=== PATIENT | female | born 1960 | race Asian ===

== ENCOUNTER 2020-08-22 13:05 | Outpatient (REF) | payer OTHER, SELFPAY ==
[2020-08-23 11:04] LABS: CT PCR NOT DETECTED (Not Detect.)
[2020-08-23 11:05] LABS: NG PCR NOT DETECTED (Not Detect.)
[2020-08-23 11:25] LABS: BV Int Neg Control Negative (Negative); BV Int Pos Control Positive (Positive)
[2020-08-23 14:21] LABS: Appearance Urine HAZY; Color Urine YELLOW; Glucose Urine UA NEG (NEG); Leukocyte Esterase Urine NEG (NEG); Nitrite Urine NEG (NEG); Specific Gravity - Urine 1.025 (1.005-1.025); Urine Blood 1+ (NEG); Urine Ketones NEG (NEG); Urine Protein NEG (NEG-TRACE)
[2020-08-23 15:00] LABS: Squamous Epithelial Cell Urine 1+ /LPF; WBC Urine 0-2 /HPF (0-4)
[2020-08-23 15:01] LABS: Calcium Oxalate Crystals Urine 1+ /LPF; Mucus Urine 2+ /LPF
== END 2020-08-22 13:06 | disposition home or self-care (01) ==
LOC: HO.LNP 13:05
PROVIDERS: PCP Internal Medicine; Referring Provider Internal Medicine; Visit Provider Obstetrics & Gynecology
DX: Z01.419 Encounter for gynecological examination (general) (routine) without abnormal findings (principal); N95.9 Unspecified menopausal and perimenopausal disorder; R31.9 Hematuria, unspecified; Q51.6 Embryonic cyst of cervix; Q52.4 Other congenital malformations of vagina; Z11.3 Encounter for screening for infections with a predominantly sexual mode of transmission; Z11.8 Encounter for screening for other infectious and parasitic diseases; Z11.4 Encounter for screening for human immunodeficiency virus [HIV]; Z11.59 Encounter for screening for other viral diseases
CPT/HCPCS: 36415; 81001; 87480; 87491; 87510; 87591; 87660; 99203

== ENCOUNTER → 2020-10-05 13:12 | Outpatient (BNVA) | payer OTHER, SELFPAY | PROVIDERS: PCP Internal Medicine; Visit Provider Internal Medicine Endocrinology, Diabetes & Metabolism | DX: M81.0 Age-related osteoporosis without current pathological fracture (principal); M88.9 Osteitis deformans of unspecified bone; E04.2 Nontoxic multinodular goiter; E55.9 Vitamin D deficiency, unspecified; Z79.899 Other long term (current) drug therapy | CPT/HCPCS: 99212 ==

== ENCOUNTER 2020-10-05 14:01 | Outpatient (REF) | payer OTHER, SELFPAY ==
[2020-10-05 15:34] LABS: Alanine Aminotransferase 24 U/L (0-31); Albumin Level 4.1 g/dL (3.5-5.0); Alkaline Phosphatase 94 U/L (39-117); Anion Gap 11 (12-20); Aspartate Amino Transferase 25 U/L (5-31); Bilirubin Total 0.3 mg/dL (0.0-1.0); Blood Urea Nitrogen 18 mg/dL (9-16); Calcium 9.2 mg/dL (8.4-10.2); Carbon Dioxide 26 mmol/L (22-29); Chloride 103 mmol/L (96-108); Estimated Glomerular Filt Rate > 60; Glucose Random 90 mg/dL (60-115); Potassium 4.1 mmol/l (3.3-5.1); Sodium 136 mmol/L (135-145); Total Protein 7.3 g/dL (6.5-8.0)
[2020-10-05 15:52] LABS: Syphilis Screen Nonreactive (Nonreactive)
[2020-10-05 15:56] LABS: Free T4 (Free Thyroxine) 0.97 ng/dL (0.71-1.85); Thyroid Stimulating Hormone 0.26 uIU/mL (0.32-4.0); Vitamin D 25-OH Total 21.4 ng/mL (>30)
[2020-10-05 17:55] LABS: CT PCR NOT DETECTED (Not Detect.); NG PCR NOT DETECTED (Not Detect.)
[2020-10-06 05:01] LABS: HBsAGNum1 0.25 S/CO (0.00-0.99); Hepatitis B Surface Antigen Negative (Negative)
[2020-10-08 06:52] LABS: HIV RNA PCR Qn Copies <20 NOT DETECTED copies/mL (NOT DETECTED); HIV RNA PCR Qn Log Copies <1.30 NOT DETECTED (NOT DETECTED)
== END 2020-10-05 14:02 | disposition home or self-care (01) ==
LOC: HO.LAB 14:01
PROVIDERS: Internal Medicine Endocrinology, Diabetes & Metabolism; PCP Internal Medicine; Visit Provider Obstetrics & Gynecology
DX: M81.0 Age-related osteoporosis without current pathological fracture (principal); E04.2 Nontoxic multinodular goiter; Z11.3 Encounter for screening for infections with a predominantly sexual mode of transmission
CPT/HCPCS: 80053; 82306; 84439; 84443; 86780; 87086; 87340; 87491; 87536; 87591

== ENCOUNTER 2020-12-08 14:40 | Outpatient (REF) | payer OTHER, SELFPAY ==
--- NOTE | 2020-12-08 14:49 | XR_ITS ---
EXAMINATION: XR SOFT TISSUE NECK CLINICAL INDICATION: Neck pain COMPARISON: Previous cervical spine x-ray March 2016 TECHNIQUE: 2 views of the soft tissue neck were obtained. FINDINGS: Bone alignment is normal. No fracture or dislocation is seen. There is mild degenerative spondylosis at C4-C5 and C5-C6. There are postsurgical changes to the right neck. Soft tissues are otherwise normal. XR/XR soft tissue neck IMPRESSION: Mild degenerative spondylosis of the lower cervical spine. Postsurgical changes to the right.
== END 2020-12-08 14:41 | disposition home or self-care (01) ==
LOC: HO.XRAY 14:40
PROVIDERS: PCP Internal Medicine; Visit Provider Nurse Practitioner Family
DX: M54.2 Cervicalgia (principal)
CPT/HCPCS: 70360

== ENCOUNTER 2021-02-13 09:12 | Outpatient (REF) | payer OTHER, SELFPAY ==
[2021-02-13 09:47] LABS: MANUAL DIFF FLAG NO
[2021-02-13 09:52] LABS: Basophils Absolute Auto 0.1 X10*3/uL (0.0-0.2); Basophils Percent Auto 0.9 % (0-2); Eosinophils Absolute Auto 0.1 X10*3/uL (0.0-0.4); Eosinophils Percent Auto 1.8 % (0-4); Hematocrit 29.7 % (37-47); Hemoglobin 9.8 g/dl (12.0-16.0); Imm Gran Abs Auto 0.02 X10*3/uL (0.00-0.03); Imm Gran Pct Auto 0.4 % (0.0-0.4); Lymphocytes Absolute Auto 1.7 X10*3/uL (1.2-4.9); Lymphocytes Percent Auto 29.9 % (20-40); Mean Corpuscular Hemoglobin 29.6 pg (27.0-33.0); Mean Corpuscular Volume 89.7 fL (80-98); Mean Platelet Volume 9.5 fL (9.4-12.3); Monocytes Absolute Auto 0.3 X10*3/uL (0.1-1.2); Neutrophils Absolute Auto 3.5 X10*3/uL (2.0-8.3); Platelet Count 361 X10*3/uL (160-400); Red Blood Count 3.31 X10*6/uL (4.20-5.50); Red Cell Distribution Width 15.1 % (11.0-16.0); White Blood Count 5.7 X10*3/uL (4.8-10.8)
[2021-02-13 10:14] LABS: Alanine Aminotransferase 14 U/L (0-31); Albumin Level 3.8 g/dL (3.5-5.0); Alkaline Phosphatase 84 U/L (39-117); Anion Gap 13 (12-20); Aspartate Amino Transferase 17 U/L (5-31); Bilirubin Total 0.4 mg/dL (0.0-1.0); Blood Urea Nitrogen 19 mg/dL (9-16); Calcium 8.9 mg/dL (8.4-10.2); Carbon Dioxide 25 mmol/L (22-29); Chloride 108 mmol/L (96-108); Cholesterol 215 mg/dL; Estimated Glomerular Filt Rate > 60; Glucose Fasting 96 mg/dL (60-99); HDL Cholesterol 63 mg/dL; LDL Cholesterol Calculated 136 mg/dl; Potassium 3.9 mmol/L (3.3-5.1); Sodium 142 mmol/L (135-145); Total Protein 6.8 g/dL (6.5-8.0); Triglycerides 83 mg/dL
[2021-02-13 10:31] LABS: Free T4 (Free Thyroxine) 0.98 ng/dL (0.71-1.85)
[2021-02-13 10:34] LABS: Thyroid Stimulating Hormone 0.91 uIU/mL (0.32-4.0)
[2021-02-13 10:56] LABS: Folate 11.7 ng/mL (> or = 4.0); Vitamin B12 879 pg/mL (200-900)
[2021-02-15 20:17] LABS: Mixing Study - PT 10.2 sec (9.0-11.5); PTT LA 36 sec (< OR = 40)
[2021-02-16 13:26] LABS: Collagen Type I C-Telopeptide 738 pg/mL (see note)
[2021-02-17 11:52] LABS: Vitamin D 25-OH, D2 4 ng/mL; Vitamin D 25-OH, D3 35 ng/mL; Vitamin D 25-OH, Total 39 ng/mL (30-100)
== END 2021-02-13 09:13 | disposition home or self-care (01) ==
LOC: HO.LAB 09:12
PROVIDERS: Internal Medicine Endocrinology, Diabetes & Metabolism; Absent Provider Nurse Practitioner Family; PCP Internal Medicine; Visit Provider Internal Medicine
DX: Z01.818 Encounter for other preprocedural examination (principal); M81.0 Age-related osteoporosis without current pathological fracture; D51.0 Vitamin B12 deficiency anemia due to intrinsic factor deficiency; E78.5 Hyperlipidemia, unspecified; E04.2 Nontoxic multinodular goiter; E55.9 Vitamin D deficiency, unspecified
CPT/HCPCS: 36415; 80053; 80061; 82306; 82523; 82607; 82746; 84439; 84443; 85025; 85611; 85732

== ENCOUNTER 2021-04-05 09:17 | Outpatient (REF) | payer OTHER, SELFPAY ==
[2021-04-05 10:44] LABS: MANUAL DIFF FLAG NO
[2021-04-05 10:50] LABS: Basophils Percent Auto 0.6 % (0-2); Eosinophils Absolute Auto 0.1 X10*3/uL (0.0-0.4); Eosinophils Percent Auto 2.3 % (0-4); Hematocrit 31.1 % (37-47); Hemoglobin 9.8 g/dl (12.0-16.0); Imm Gran Abs Auto 0.02 X10*3/uL (0.00-0.03); Imm Gran Pct Auto 0.4 % (0.0-0.4); Lymphocytes Absolute Auto 1.8 X10*3/uL (1.2-4.9); Lymphocytes Percent Auto 33.5 % (20-40); Mean Corpuscular HGB Conc 31.5 g/dl (31.0-35.0); Mean Corpuscular Hemoglobin 28.6 pg (27.0-33.0); Mean Corpuscular Volume 90.7 fL (80-98); Mean Platelet Volume 9.9 fL (9.4-12.3); Monocytes Absolute Auto 0.4 X10*3/uL (0.1-1.2); Monocytes Percent Auto 7.3 % (2-11); Neutrophils Percent Auto 55.9 % (45-73); Platelet Count 334 X10*3/uL (160-400); Red Blood Count 3.43 X10*6/uL (4.20-5.50); Red Cell Distribution Width 13.3 % (11.0-16.0); White Blood Count 5.3 X10*3/uL (4.8-10.8)
[2021-04-05 11:32] LABS: Alanine Aminotransferase 15 U/L (0-31); Albumin Level 3.9 g/dL (3.5-5.0); Alkaline Phosphatase 96 U/L (39-117); Anion Gap 10 (12-20); Aspartate Amino Transferase 18 U/L (5-31); Bilirubin Total 0.5 mg/dL (0.0-1.0); Blood Urea Nitrogen 17 mg/dL (9-16); Calcium 9.4 mg/dL (8.4-10.2); Carbon Dioxide 25 mmol/L (22-29); Chloride 108 mmol/L (96-108); Cholesterol 209 mg/dL; Estimated Glomerular Filt Rate > 60; Glucose Fasting 90 mg/dL (60-99); HDL Cholesterol 64 mg/dL; Iron 60 mcg/dL (30-160); LDL Cholesterol Calculated 135 mg/dl; Percent Iron Saturation 16 % (15-50); Potassium 4.2 mmol/L (3.3-5.1); Sodium 139 mmol/L (135-145); Total Iron Binding Capacity 384 mcg/dL (228-428); Total Protein 6.9 g/dL (6.5-8.0); Triglycerides 54 mg/dL; Unsaturated Iron Binding 324 ug/dL
[2021-04-05 11:38] LABS: Albumin Level 3.9 g/dL (3.5-5.0); Calcium 9.5 mg/dL (8.4-10.2)
[2021-04-05 12:19] LABS: Ferritin 11 ng/mL (10-250); Vitamin D 25-OH Total 44.3 ng/mL (>30)
[2021-04-05 12:24] LABS: Vitamin D 25-OH Total 44.4 ng/mL (>30)
[2021-04-05 12:34] LABS: Folate 15.1 ng/mL (> or = 4.0); Vitamin B12 1115 pg/mL (200-900)
[2021-04-09 09:37] LABS: Alkaline Phosphatase Bone 13.4 mcg/L (5.6-29.0)
[2021-04-11 18:11] LABS: N-Telopeptide 104 (see note); NTXCreaRU 113 mg/dL (20-275)
== END 2021-04-05 09:18 | disposition home or self-care (01) ==
LOC: HO.LAB 09:17
PROVIDERS: Absent Provider Nurse Practitioner Family; PCP Internal Medicine; Visit Provider Internal Medicine Endocrinology, Diabetes & Metabolism
DX: M81.0 Age-related osteoporosis without current pathological fracture (principal); M88.9 Osteitis deformans of unspecified bone; E04.2 Nontoxic multinodular goiter; E55.9 Vitamin D deficiency, unspecified; E78.00 Pure hypercholesterolemia, unspecified; D50.9 Iron deficiency anemia, unspecified; I10 Essential (primary) hypertension; E53.8 Deficiency of other specified B group vitamins
CPT/HCPCS: 36415; 80053; 80061; 82040; 82306; 82310; 82523; 82607; 82728; 82746; 83540; 84075; 85025; 99212

== ENCOUNTER 2021-07-06 08:54 | Outpatient (REF) | payer OTHER, SELFPAY ==
--- NOTE | ~2021-07-06 | MM_ITS ---
EXAMINATION: MM SCREENING DIGITAL BREAST TOMOSYNTHESIS, BILATERAL CLINICAL INFORMATION: Screening. Asymptomatic. The lifetime risk of breast cancer based on the Tyrer-Cuzick Model is 4%. COMPARISON: Mammography: 01/22/2020, 01/16/2019, 01/01/2018 TECHNIQUE: Digital breast tomosynthesis is performed in both the craniocaudal and mediolateral oblique views along with computer-aided detection (CAD). Synthesized 2D images are generated from the tomosynthesis. Additional left MLO view is provided. FINDINGS: There are scattered areas of fibroglandular density (ACR BI-RADS breast composition Category b). There are no significant masses, abnormal calcifications, or other abnormalities. There is no developing density. Parenchymal pattern is similar to prior exams. The axilla and skin contours are unremarkable. MM/MM tomosynthesis screening BI IMPRESSION: No mammographic evidence of malignancy. ASSESSMENT: BI-RADS 1: Negative RECOMMENDATION: Routine annual mammography screening. This patient's information was entered into a reminder system with a target due date for their next mammogram.
== END 2021-07-06 08:55 | disposition home or self-care (01) ==
LOC: HO.MAMMO 08:54
PROVIDERS: Visit Provider Internal Medicine
DX: Z12.31 Encounter for screening mammogram for malignant neoplasm of breast (principal)
CPT/HCPCS: 77063; 77067

== ENCOUNTER 2021-08-17 14:12 | Outpatient (REF) | payer OTHER, SELFPAY | END 2021-08-17 14:13 | disposition home or self-care (01) | LOC: HO.LAB 14:12 | PROVIDERS: PCP Internal Medicine | DX: N39.0 Urinary tract infection, site not specified (principal) | CPT/HCPCS: 87086; 87088; 87186; 99202 ==

== ENCOUNTER 2021-08-25 09:04 | Outpatient (REF) | payer OTHER, SELFPAY | END 2021-08-25 09:05 | disposition home or self-care (01) | LOC: HO.LAB 09:04 | PROVIDERS: PCP Internal Medicine | DX: N39.0 Urinary tract infection, site not specified (principal) | CPT/HCPCS: 87086; 87088; 87186 ==

== ENCOUNTER 2021-09-14 10:52 | Outpatient (REF) | payer OTHER, SELFPAY ==
--- NOTE | ~2021-09-14 | US_ITS ---
EXAMINATION: US THYROID CLINICAL INFORMATION: Nontoxic multinodular goiter. COMPARISON: Ultrasound soft tissue head/neck thyroid dated 04/15/2020. TECHNIQUE: Linear transducer grayscale and color Doppler examination with attention to the region of the thyroid. FINDINGS: SIZE: Measurements of the thyroid lobes and nodules are given in sagittal, anteroposterior and transverse dimensions respectively. Right Thyroid Lobe: 4.4 x 1.3 x 1.8 cm, volume 5.4 mL. Previously 4.1 x 1.3 x 1.7 cm, volume 5.0 mL. Parenchyma: The gland echotexture is homogeneous. Thyroid vascularity is normal. Left Thyroid Lobe: 5.6 x 2.8 x 2.7 cm, volume 22.1 mL. Previously 5.4 x 2.7 x 2.1 cm, volume 11.7 mL. Parenchyma: The gland echotexture is heterogeneous. Thyroid vascularity is increased. Isthmus: 1.1 cm in maximum AP dimension. Previously 0.6 cm. Estimated total number of nodules greater than or equal to 1 cm: 2. Corporate Safety Director nodules are described as follows: 1. Location: Left superior. Size: 1.0 x 1.0 x 0.9 cm, volume 0.5 mL. Previously: 1.2 x 0.9 x 1.1 cm, volume 0.6 mL. Nodule characteristics: Composition: Spongiform (0). Echogenicity: Anechoic (0). Shape: Not taller than wide (0). Margins: Smooth (0). Echogenic Foci: None (0). ACR TI-RADS total points: 0 ACR TI-RADS category: 1 Significant change in size (>/= 20% in 2 dimensions and minimal increase of 2 mm or 50% or greater increase in volume): No Change in features: No Change in ACR TI-RADS risk category: No 2. Location: Left inferior. Size: 4.7 x 2.7 x 4.5 cm, volume 29.1 mL. Previously: 3.5 x 2.0 x 3.6 cm, volume 13.2 mL. Nodule characteristics: Composition: Solid (2). Echogenicity: Isoechoic (1). Shape: Not taller than wide (0). Margins: Smooth (0). Echogenic Foci: None (0). ACR TI-RADS total points: 3 ACR TI-RADS category: 3 Significant change in size (>/= 20% in 2 dimensions and minimal increase of 2 mm or 50% or greater increase in volume): Yes Change in features: No Change in ACR TI-RADS risk category: No NODES: No lymphadenopathy is seen in the tissue surrounding the thyroid gland. US/US thyroid IMPRESSION: Enlarged heterogeneous thyroid gland and isthmus with 2 left nodules. There is significant interval increase in size in the largest nodule in the inferior left lobe. Repeat fine-needle aspiration should be considered. ACR TI-RADS RECOMMENDATION REFERENCE: Ultrasound-guided fine-needle aspiration, followup ultrasound, no further follow up. * TR1 (0 point) and TR 2 (2 points): No FNA or follow up * TR3 (3 points): FNA if more than or equal to 2.5 cm in maximum dimension, followup ultrasound in 1, 3 and 5 years if 1.5 to 2.4 cm in maximum dimension. * TR4 (4-6 points): FNA if more than or equal to 1.5 cm in maximum dimension, followup ultrasound in 1, 2, 3 and 5 years if 1 to 1.4 cm in maximum dimension. * TR5 (more than or equal to 7 points): FNA if more than or equal to 1 cm in maximum dimension, followup ultrasound every year for 5 years if 0.5 to 0.9 cm in maximum dimension. * TR3, TR4 or TR5 nodules that are below the size threshold for follow up receive no follow up.
== END 2021-09-14 10:53 | disposition home or self-care (01) ==
LOC: HO.US 10:52
PROVIDERS: PCP Internal Medicine; Visit Provider Internal Medicine
DX: E04.2 Nontoxic multinodular goiter (principal)
CPT/HCPCS: 76536

== ENCOUNTER 2021-10-31 17:55 | Outpatient (REF) | payer OTHER, SELFPAY | END 2021-10-31 17:56 | disposition home or self-care (01) | LOC: HO.LNP 17:55 | PROVIDERS: Visit Provider Internal Medicine | DX: R31.29 Other microscopic hematuria (principal); R30.0 Dysuria | CPT/HCPCS: 87086; 87088; 87186 ==

== ENCOUNTER 2021-11-06 09:47 | Outpatient (REF) | payer OTHER, SELFPAY ==
[2021-11-06 10:03] LABS: MANUAL DIFF FLAG NO
[2021-11-06 10:09] LABS: Basophils Percent Auto 0.5 % (0-2); Eosinophils Absolute Auto 0.2 X10*3/uL (0.0-0.4); Eosinophils Percent Auto 2.6 % (0-4); Hematocrit 32.4 % (37.0-47.0); Hemoglobin 10.1 g/dl (12.0-16.0); Imm Gran Abs Auto 0.02 X10*3/uL (0.00-0.03); Imm Gran Pct Auto 0.3 % (0.0-0.4); Lymphocytes Absolute Auto 1.9 X10*3/uL (1.2-4.9); Lymphocytes Percent Auto 33.4 % (20-40); Mean Corpuscular HGB Conc 31.2 g/dl (31.0-35.0); Mean Corpuscular Hemoglobin 27.7 pg (27.0-33.0); Mean Corpuscular Volume 88.8 fL (80.0-98.0); Mean Platelet Volume 9.3 fL (9.4-12.3); Monocytes Absolute Auto 0.4 X10*3/uL (0.1-1.2); Monocytes Percent Auto 7.7 % (2-11); Neutrophils Absolute Auto 3.2 x10*3/uL (2.0-8.3); Neutrophils Percent Auto 55.5 % (45-73); Platelet Count 353 X10*3/uL (160-400); Red Blood Count 3.65 X10*6/uL (4.20-5.50); Red Cell Distribution Width 14.1 % (11.0-16.0); White Blood Count 5.8 X10*3/uL (4.8-10.8)
[2021-11-06 10:37] LABS: Alanine Aminotransferase 14 U/L (0-31); Albumin Level 3.9 g/dL (3.5-5.0); Alkaline Phosphatase 83 U/L (39-117); Anion Gap 10 (12-20); Aspartate Amino Transferase 17 U/L (5-31); Bilirubin Total 0.5 mg/dL (0.0-1.0); Blood Urea Nitrogen 18 mg/dL (9-16); Calcium 9.4 mg/dL (8.4-10.2); Carbon Dioxide 27 mmol/L (22-29); Chloride 107 mmol/L (96-108); Cholesterol 206 mg/dL; Estimated Glomerular Filt Rate > 60; Glucose Fasting 95 mg/dL (60-99); HDL Cholesterol 57 mg/dL; Iron 50 mcg/dL (30-160); LDL Cholesterol Calculated 136 mg/dl; Percent Iron Saturation 13 % (15-50); Potassium 4.1 mmol/L (3.3-5.1); Sodium 140 mmol/L (135-145); Total Iron Binding Capacity 385 mcg/dL (228-428); Total Protein 7.1 g/dL (6.5-8.0); Triglycerides 68 mg/dL; Unsaturated Iron Binding 335 ug/dL
[2021-11-06 10:54] LABS: Thyroid Stimulating Hormone 0.66 uIU/mL (0.32-4.0)
[2021-11-06 11:50] LABS: Folate 15.1 ng/mL (> or = 4.0); Vitamin B12 1375 pg/mL (200-900)
[2021-11-10 16:26] LABS: Vitamin D 25-OH, D2 <4 ng/mL; Vitamin D 25-OH, D3 27 ng/mL; Vitamin D 25-OH, Total 27 ng/mL (30-100)
== END 2021-11-06 09:48 | disposition home or self-care (01) ==
LOC: HO.XRAY 09:47
PROVIDERS: Absent Provider Internal Medicine; PCP Internal Medicine; Visit Provider Internal Medicine Endocrinology, Diabetes & Metabolism
DX: E55.9 Vitamin D deficiency, unspecified (principal); D51.0 Vitamin B12 deficiency anemia due to intrinsic factor deficiency; E04.2 Nontoxic multinodular goiter; E78.5 Hyperlipidemia, unspecified; D64.9 Anemia, unspecified
CPT/HCPCS: 36415; 80053; 80061; 82306; 82607; 82746; 83540; 84443; 85025

== ENCOUNTER → 2022-02-12 10:05 | Outpatient (BNVA) | payer OTHER, SELFPAY | PROVIDERS: PCP Internal Medicine | DX: Z13.89 Encounter for screening for other disorder (principal) ==

== ENCOUNTER 2022-02-15 17:34 | Outpatient (REF) | payer OTHER, SELFPAY | END 2022-02-15 17:35 | disposition home or self-care (01) | LOC: HO.LNP 17:34 | PROVIDERS: Visit Provider Nurse Practitioner Family | DX: R30.0 Dysuria (principal) | CPT/HCPCS: 87086; 87088; 87186 ==

== ENCOUNTER → 2022-03-02 09:15 | Outpatient (BNVA) | payer OTHER, SELFPAY | PROVIDERS: PCP Internal Medicine; Visit Provider Urology | DX: N39.0 Urinary tract infection, site not specified (principal) | CPT/HCPCS: 99212 ==

== ENCOUNTER 2022-03-21 09:46 | Outpatient (REF) | payer OTHER, SELFPAY ==
--- NOTE | ~2022-03-21 | XR_ITS ---
EXAMINATION: XR ABDOMEN KUB CLINICAL INDICATION: Microscopic hematuria. COMPARISON: 11/01/2016. TECHNIQUE: AP view of the abdomen. FINDINGS: Significant fecal residual throughout the entire large bowel. Postsurgical changes are noted within the right mid abdomen and left upper quadrant of the abdomen. Gastric lap band is noted with intact hardware. Multiple surgical clips are noted in the pelvis. No radiographic evidence of any radiopaque urinary tract calculi. Overall, no significant change. XR/XR KUB IMPRESSION: No radiographic evidence of any radiopaque urinary tract calculi.
[2022-03-21 10:03] LABS: MANUAL DIFF FLAG NO
[2022-03-21 10:27] LABS: Basophils Absolute Auto 0.1 X10*3/uL (0.0-0.2); Basophils Percent Auto 0.9 % (0-2); Eosinophils Absolute Auto 0.1 X10*3/uL (0.0-0.4); Eosinophils Percent Auto 1.9 % (0-4); Hematocrit 30.9 % (37.0-47.0); Hemoglobin 9.7 g/dl (12.0-16.0); Imm Gran Abs Auto 0.03 X10*3/uL (0.00-0.03); Imm Gran Pct Auto 0.5 % (0.0-0.4); Lymphocytes Absolute Auto 1.8 X10*3/uL (1.2-4.9); Lymphocytes Percent Auto 28.3 % (20-40); Mean Corpuscular HGB Conc 31.4 g/dl (31.0-35.0); Mean Corpuscular Hemoglobin 27.8 pg (27.0-33.0); Mean Corpuscular Volume 88.5 fL (80.0-98.0); Mean Platelet Volume 9.8 fL (9.4-12.3); Monocytes Absolute Auto 0.5 X10*3/uL (0.1-1.2); Neutrophils Absolute Auto 3.9 x10*3/uL (2.0-8.3); Neutrophils Percent Auto 61.4 % (45-73); Platelet Count 401 X10*3/uL (160-400); Red Blood Count 3.49 X10*6/uL (4.20-5.50); Red Cell Distribution Width 14.5 % (11.0-16.0); White Blood Count 6.4 X10*3/uL (4.8-10.8)
[2022-03-21 10:50] LABS: Alanine Aminotransferase 19 U/L (0-31); Albumin Level 3.8 g/dL (3.5-5.0); Alkaline Phosphatase 92 U/L (39-117); Anion Gap 11 (12-20); Aspartate Amino Transferase 21 U/L (5-31); Bilirubin Total 0.6 mg/dL (0.0-1.0); Blood Urea Nitrogen 15 mg/dL (9-16); Calcium 9.8 mg/dL (8.4-10.2); Carbon Dioxide 27 mmol/L (22-29); Chloride 105 mmol/L (96-108); Cholesterol 214 mg/dL; Estimated Glomerular Filt Rate > 60; Glucose Fasting 74 mg/dL (60-99); HDL Cholesterol 57 mg/dL; LDL Cholesterol Calculated 144 mg/dl; Potassium 4.2 mmol/L (3.3-5.1); Sodium 139 mmol/L (135-145); Triglycerides 67 mg/dL
[2022-03-21 11:12] LABS: TSH reflex Free T4 1.13 uIU/mL (0.32-4.0)
[2022-03-26 15:02] LABS: Vitamin D 25-OH, D2 <4 ng/mL; Vitamin D 25-OH, D3 24 ng/mL; Vitamin D 25-OH, Total 24 ng/mL (30-100)
== END 2022-03-21 09:47 | disposition home or self-care (01) ==
LOC: HO.LAB 09:46
PROVIDERS: Absent Provider Nurse Practitioner Family; PCP Internal Medicine; Visit Provider Internal Medicine
DX: Z00.00 Encounter for general adult medical examination without abnormal findings (principal); R31.29 Other microscopic hematuria; E78.5 Hyperlipidemia, unspecified; E55.9 Vitamin D deficiency, unspecified; E78.00 Pure hypercholesterolemia, unspecified; I10 Essential (primary) hypertension
CPT/HCPCS: 36415; 74018; 80053; 80061; 82306; 84443; 85025

== ENCOUNTER 2022-03-22 18:02 | Outpatient (REF) | payer OTHER, SELFPAY | END 2022-03-22 18:03 | disposition home or self-care (01) | LOC: HO.LNP 18:02 | PROVIDERS: Visit Provider Internal Medicine | DX: R30.0 Dysuria (principal) | CPT/HCPCS: 87086 ==

== ENCOUNTER 2022-04-06 09:45 | Outpatient (REF) | payer OTHER, SELFPAY ==
--- NOTE | ~2022-04-06 | MM_ITS ---
EXAMINATION: BONE DENSITOMETRY CLINICAL INDICATION: Age-related osteoporosis without current pathological fracture. COMPARISON: None (current study represents initial baseline exam). TECHNIQUE: Using a Superfeedr DXA System (software version: 13.1) manufactured by [employer], dual-energy x-ray absorptiometry was performed of the lumbar spine and left hip. The images are of good technical quality. Summary results are attached. FINDINGS: AP SPINE L1-L4: BMD 0.865 g/cm2, Z-score -1.1, T-score -2.6, osteoporosis. LEFT FEMUR, NECK: BMD 0.969 g/cm2, Z-score 0.9, T-score -0.5, normal. LEFT FEMUR, TOTAL: BMD 0.932 g/cm2, Z-score 0.5, T-score -0.6, normal. IDENTIFIED RISK FACTORS: Osteoporosis, low calcium intake, height loss, secondary osteoporosis, menopause, glucocorticoids (chronic). HISTORY OF FRACTURE: None listed. MEDICATIONS: Calcium supplements or multivitamin, vitamin D. MM/XR DEXA axial skeleton IMPRESSION: 1. DIAGNOSIS: Osteoporosis based on the lowest T-score value of -2.6 in the lumbar spine applying World Health Organization criteria. 2. 10-YEAR FRACTURE RISK PREDICTION, FRAX: According to the guidelines, FRAX calculation should only be performed on patients in the osteopenia bone density category. Therefore, FRAX was not performed on this patient. 3. Treatment Recommendations: NOF guidelines recommend consideration for treatment in postmenopausal women and men age 50 and older presenting with the following: -A hip or vertebral (clinical or morphometric) fracture. -T-score less than or equal to -2.5 at the femoral neck or spine after appropriate evaluation to exclude secondary causes. -Low bone mass at the hip or spine and a 10-year fracture probability by FRAX of greater than or equal to 3% for hip fracture or greater than or equal to 20% for major osteoporotic fracture based on the [place] adapted WHO algorithm. 4. Other Recommendations: All treatment decisions require clinical judgment and consideration of individual patient factors, including patient preferences, comorbidities, previous drug use, risk factors not captured in the FRAX model (e.g. frailty, falls, vitamin D deficiency, increased bone turnover, interval significant decline in bone density) and possible under or overestimation of fracture risk by FRAX. Additional medical evaluation for secondary cause of low bone mineral density may be appropriate. FUTURE SCAN RECOMMENDATION: People with diagnosed cases of osteoporosis or at high risk for fracture should have regular bone mineral density tests. For patients eligible for Medicare, routine testing is allowed once every 2 years. The testing frequency can be increased to one year for patients who have rapidly progressing disease, those who are receiving or discontinuing medical therapy to restore bone mass, or have additional risk factors.
== END 2022-04-06 09:46 | disposition home or self-care (01) ==
LOC: HO.MAMMO 09:45
PROVIDERS: PCP Internal Medicine; Visit Provider Internal Medicine
DX: Z13.820 Encounter for screening for osteoporosis (principal); M81.0 Age-related osteoporosis without current pathological fracture; Z78.0 Asymptomatic menopausal state
CPT/HCPCS: 77080

== ENCOUNTER → 2022-04-11 11:00 | Outpatient (BNV) | payer OTHER, SELFPAY | PROVIDERS: PCP Internal Medicine; Referring Provider Internal Medicine; Visit Provider Internal Medicine | DX: D50.9 Iron deficiency anemia, unspecified (principal) | CPT/HCPCS: 99204; 99213; 99214 ==

== ENCOUNTER 2022-04-24 08:14 | Outpatient (REF) | payer OTHER, SELFPAY | END 2022-04-24 08:15 | disposition home or self-care (01) | LOC: HO.MDS 08:14 | PROVIDERS: Visit Provider Internal Medicine | DX: D50.9 Iron deficiency anemia, unspecified (principal) | CPT/HCPCS: 96365; 96366; J1200; J1750; Q0163 ==

== ENCOUNTER 2022-05-17 10:31 | Outpatient (REF) | payer OTHER, SELFPAY ==
--- NOTE | ~2022-05-17 | CT_ITS ---
EXAMINATION: CT ABDOMEN AND PELVIS WITH CONTRAST CLINICAL INFORMATION: Abdominal pain. Palpable nodularity. COMPARISON: None TECHNIQUE: Multidetector volumetric images were obtained from the superior aspect of the liver through the pubic symphysis following administration 85 mL of Omnipaque 350 intravenous contrast. Sagittal and coronal reformatted images were obtained on the technologist's workstation. Oral contrast: No This CT examination was performed using dose optimization techniques as appropriate, variously including the following: *Automated exposure control *Adjustment of mA and/or kV according to patient size (this includes techniques or standardized protocols for targeted exams where dose is matched to indication/reason for exam; i.e. extremities or head) *Use of iterative reconstruction technique DLP: 394 mGy-cm FINDINGS: LUNG BASES: The visualized lung bases are unremarkable. LIVER, GALLBLADDER, AND BILIARY TREE: The liver is normal in size, shape, and attenuation. No focal hepatic lesion or biliary ductal dilatation is present. The gallbladder is unremarkable with no evidence of radiopaque gallstones, gallbladder wall thickening, or obvious pericholecystic inflammatory changes. PANCREAS: Unremarkable. SPLEEN: Unremarkable. ADRENAL GLANDS: Unremarkable. KIDNEYS AND URETERS: The kidneys are normal in size, shape, and attenuation. No hydronephrosis, hydroureter, or calculi seen. No perinephric stranding. BLADDER: Unremarkable. GASTROINTESTINAL TRACT: There is a large amount of stool in the colon without significant distention. The small bowel loops are normal caliber. There is a gastric lap band present. No free air or free fluid seen. ABDOMINAL WALL: No evidence of hernia. The hardware for gastric lap band lies in the right upper abdomen. LYMPH NODES: Normal. VASCULAR: Unremarkable. PELVIC VISCERA: There is no free fluid or free air. The uterus is anteverted and deviated to the left of midline. OSSEOUS STRUCTURES: No lytic or sclerotic process seen. CT/CT abdomen pelvis w con IMPRESSION: Moderate to significant constipation without obstruction. There is gastric lap band with the hardware in the right upper abdominal wall. Fleischner guidelines were followed.
[2022-05-17] MEDS: iohexoL 350 MG/ML 100 ML INFUS..BTL IV (11:19)
== END 2022-05-17 10:32 | disposition home or self-care (01) ==
LOC: HO.CT 10:31
PROVIDERS: PCP Internal Medicine; Visit Provider Internal Medicine
DX: R10.9 Unspecified abdominal pain (principal)
CPT/HCPCS: 74177; Q9967

== ENCOUNTER 2022-06-25 10:44 | Outpatient (REF) | payer OTHER, SELFPAY ==
[2022-06-26 02:19] LABS: CT PCR NOT DETECTED (Not Detect.); NG PCR NOT DETECTED (Not Detect.)
[2022-06-28 03:36] LABS: HPV mRNA E6/E7 rflx Not Detected (Not Detected)
== END 2022-06-25 10:45 | disposition home or self-care (01) ==
LOC: HO.LAB 10:44
PROVIDERS: Visit Provider Obstetrics & Gynecology
DX: Z01.419 Encounter for gynecological examination (general) (routine) without abnormal findings (principal); Z11.51 Encounter for screening for human papillomavirus (HPV); R10.2 Pelvic and perineal pain; R31.29 Other microscopic hematuria; N84.1 Polyp of cervix uteri; R30.0 Dysuria
CPT/HCPCS: 57500; 87086; 87491; 87591; 87624; 88142; 88305; 99212

== ENCOUNTER 2022-07-12 10:27 | Outpatient (REF) | payer OTHER, SELFPAY ==
[2022-07-12 11:43] LABS: MANUAL DIFF FLAG NO
[2022-07-12 12:28] LABS: Basophils Percent Auto 0.5 % (0-2); Eosinophils Absolute Auto 0.2 X10*3/uL (0.0-0.4); Eosinophils Percent Auto 2.1 % (0-4); Hematocrit 34.7 % (37.0-47.0); Hemoglobin 11.2 g/dl (12.0-16.0); Imm Gran Abs Auto 0.02 X10*3/uL (0.00-0.03); Imm Gran Pct Auto 0.3 % (0.0-0.4); Lymphocytes Absolute Auto 2.4 X10*3/uL (1.2-4.9); Lymphocytes Percent Auto 32.1 % (20-40); Mean Corpuscular HGB Conc 32.3 g/dl (31.0-35.0); Mean Corpuscular Hemoglobin 28.8 pg (27.0-33.0); Mean Corpuscular Volume 89.2 fL (80.0-98.0); Mean Platelet Volume 9.7 fL (9.4-12.3); Monocytes Absolute Auto 0.5 X10*3/uL (0.1-1.2); Monocytes Percent Auto 7.1 % (2-11); Neutrophils Absolute Auto 4.2 x10*3/uL (2.0-8.3); Neutrophils Percent Auto 57.9 % (45-73); Platelet Count 369 X10*3/uL (160-400); Red Blood Count 3.89 X10*6/uL (4.20-5.50); Red Cell Distribution Width 14.7 % (11.0-16.0); White Blood Count 7.3 X10*3/uL (4.8-10.8)
[2022-07-12 13:07] LABS: Alanine Aminotransferase 15 U/L (0-31); Alkaline Phosphatase 78 U/L (39-117); Anion Gap 15 (12-20); Aspartate Amino Transferase 18 U/L (5-31); Bilirubin Total 0.6 mg/dL (0.0-1.0); Blood Urea Nitrogen 13 mg/dL (9-16); Calcium 9.7 mg/dL (8.4-10.2); Carbon Dioxide 25 mmol/L (22-29); Chloride 104 mmol/L (96-108); Cholesterol 218 mg/dL; Estimated Glomerular Filt Rate > 60; Glucose Fasting 94 mg/dL (60-99); HDL Cholesterol 62 mg/dL; Iron 63 mcg/dL (30-160); LDL Cholesterol Calculated 141 mg/dl; Percent Iron Saturation 21 % (15-50); Potassium 4.6 mmol/L (3.3-5.1); Sodium 139 mmol/L (135-145); Total Iron Binding Capacity 296 mcg/dL (228-428); Total Protein 7.2 g/dL (6.5-8.0); Triglycerides 75 mg/dL; Unsaturated Iron Binding 233 ug/dL
[2022-07-12 13:28] LABS: Thyroid Stimulating Hormone 1.05 uIU/mL (0.32-4.0); Vitamin D 25-OH Total 29.7 ng/mL (>30)
[2022-07-12 14:21] LABS: Folate 14.5 ng/mL (> or = 4.0); Vitamin B12 1115 pg/mL (200-900)
[2022-07-13 05:26] LABS: HIV AB/AG Nonreactive (Nonreactive); HIV Num 1 0.06 S/CO (0.00-0.99); ~HepC Num1 0.07 S/CO (0.00-0.79); ~Hepatitis C Antibody Nonreactive (Nonreactive)
== END 2022-07-12 10:28 | disposition home or self-care (01) ==
LOC: HO.LAB 10:27
PROVIDERS: Absent Provider Internal Medicine; PCP Internal Medicine; Visit Provider Obstetrics & Gynecology
DX: Z11.4 Encounter for screening for human immunodeficiency virus [HIV] (principal); R10.2 Pelvic and perineal pain; E55.9 Vitamin D deficiency, unspecified; D64.9 Anemia, unspecified; D51.0 Vitamin B12 deficiency anemia due to intrinsic factor deficiency; E78.5 Hyperlipidemia, unspecified; N84.1 Polyp of cervix uteri; R31.29 Other microscopic hematuria; E04.2 Nontoxic multinodular goiter; X58.XXXA Exposure to other specified factors, initial encounter
CPT/HCPCS: 36415; 80053; 80061; 82306; 82607; 82746; 83540; 84443; 85025; 86803; 87389; 99212

== ENCOUNTER 2022-08-14 10:33 | Outpatient (REF) | payer OTHER, SELFPAY ==
--- NOTE | ~2022-08-14 | XR_ITS ---
EXAMINATION: XR KUB CLINICAL INDICATION: Renal stones COMPARISON: KUB 02/20/2022 CT abdomen pelvis 05/17/2022 TECHNIQUE: AP view of the abdomen. XR/XR KUB FINDINGS/IMPRESSION: * Few calcifications in the left pelvis appear to correspond to phleboliths on prior CT. No new calcification to suggest nephroureterolithiasis. * Nonobstructive bowel gas pattern. Moderate colonic stool burden. * Incidentally noted are postsurgical changes of gastric band, surgical anastomosis overlying the expected region of the stomach and abdominal and pelvic surgical clips.
== END 2022-08-14 10:34 | disposition home or self-care (01) ==
LOC: HO.XRAY 10:33
PROVIDERS: PCP Internal Medicine; Visit Provider Internal Medicine
DX: R31.0 Gross hematuria (principal)
CPT/HCPCS: 74018

== ENCOUNTER 2022-08-30 13:08 | Outpatient (REF) | payer OTHER, SELFPAY ==
--- NOTE | ~2022-08-30 | MM_ITS ---
EXAMINATION: MM DIAGNOSTIC DIGITAL BREAST TOMOSYNTHESIS, BILATERAL US DIAGNOSTIC ULTRASOUND BREAST, RIGHT CLINICAL INFORMATION: Palpable area of concern 2-3 months superior lateral right chest near clavicle. Due for yearly. The lifetime risk of breast cancer based on the Tyrer-Cuzick Model is 17%. COMPARISON: Mammography: 07/06/2021, 01/22/2020, 01/16/2019; chest radiograph 05/13/2019. TECHNIQUE: Digital breast tomosynthesis is performed in both the craniocaudal and mediolateral oblique views along with computer-aided detection (CAD). Synthesized 2D images are generated from the tomosynthesis. Additional exaggerated right CC view is provided. Ultrasound right breast/chest wall is performed using grayscale imaging and color Doppler without and with harmonics. Patient is able to point to area of concern at time of imaging. FINDINGS: There are scattered areas of fibroglandular density (ACR BI-RADS breast composition Category b). Breast tissue composition borders on predominantly fatty. Background stromal and fibroglandular densities are stable. There is no developing density or interval mass or architectural abnormality or abnormal calcifications. No skin thickening or coarsening of the Jesse's ligaments. The axilla are unremarkable. Ultrasound demonstrates no cystic or solid mass, or architectural abnormality. No skin thickening or edema tracking in soft tissue planes. Palpable concern appears superior to the breast and axilla and close to the clavicle. Results are discussed with the patient at time of visit. MM/MM tomosynthesis diagnostic BI IMPRESSION: -No mammographic evidence of malignancy. -Unremarkable targeted right ultrasound. ASSESSMENT: BI-RADS 1: Negative RECOMMENDATION: 1. Patient's palpable concern superior to the breast below the right clavicle may be managed based on the clinical impression. If clinically indicated, finding may be further assessed with MRI. 2. Otherwise, routine annual screening mammography. This patient's information was entered into a reminder system with a target due date for their next mammogram.
== END 2022-08-30 13:09 | disposition home or self-care (01) ==
LOC: HO.MAMMO 13:08
PROVIDERS: PCP Internal Medicine; Visit Provider Internal Medicine
DX: N63.11 Unspecified lump in the right breast, upper outer quadrant (principal)
CPT/HCPCS: 76642; 77062; 77066

== ENCOUNTER 2022-09-07 13:19 | Outpatient (REF) | payer OTHER, SELFPAY ==
--- NOTE | ~2022-09-07 | US_ITS ---
EXAMINATION: US PELVIC AND TRANSVAGINAL CLINICAL INFORMATION: Pain. COMPARISON: Previous CT of the abdomen and pelvis 05/17/2022 and pelvic ultrasound 06/01/2019. TECHNIQUE: Ultrasound of the pelvis was performed using both transabdominal and transvaginal transducers along with Doppler. Transvaginal imaging was performed due to inadequate visualization transabdominally. FINDINGS: The uterus is anteverted and measures 5.1 x 3.4 x 3.7 cm in dimension. Uterine echotexture is heterogeneous. There are numerous small hyperechoic areas in the uterus questionable for calcifications. Endometrial thickness is normal measuring 0.3 cm. The ovaries are not seen. There is no fluid in the pelvis. US/US pelvic and transvaginal IMPRESSION: Heterogeneous uterus with multiple small hyperechoic areas questionable for calcifications. Ovaries not seen.
== END 2022-09-07 13:20 | disposition home or self-care (01) ==
LOC: HO.US 13:19
PROVIDERS: Visit Provider Obstetrics & Gynecology
DX: R10.2 Pelvic and perineal pain (principal)
CPT/HCPCS: 76830; 76856

== ENCOUNTER → 2022-09-20 10:45 | Outpatient (BNVA) | payer OTHER, SELFPAY | PROVIDERS: PCP Internal Medicine; Visit Provider Obstetrics & Gynecology | DX: N63.11 Unspecified lump in the right breast, upper outer quadrant (principal); R10.2 Pelvic and perineal pain | CPT/HCPCS: 99212 ==

== ENCOUNTER → 2022-10-04 14:02 | Outpatient (BNVA) | payer OTHER, SELFPAY | PROVIDERS: PCP Internal Medicine; Visit Provider Urology | DX: R31.29 Other microscopic hematuria (principal); N39.0 Urinary tract infection, site not specified | CPT/HCPCS: 51798; 99212 ==

== ENCOUNTER 2022-10-16 06:35 | Day surgery (SDC) | payer OTHER, SELFPAY ==
--- NOTE | 2022-10-15 09:19 | P.CONAN_ITS ---
Documented by User: Candelaria Ramos NP 10/15/22 09:20 HPI - Anesthesia Eval Consult details Narrative: 62yo F for Cystoscopy Hydrodistention of Bladder PMFSH Active Problems Active Problems: All Active Problems (Updated 08/14/22 @ 10:55 by Mary Jo Conteh MD) Pure hypercholesterolemia (Acute) Breast mass, right (Acute) Gross hematuria (Acute) Microscopic hematuria (Acute) Cervical polyp (Acute) Pelvic pain (Acute) Needle exposure (Acute) Physical exam (Acute) Dysuria (Acute) Microscopic hematuria (Acute) Murmur (Acute) Frequent UTI (Acute) Iron deficiency anemia (Acute) Dysuria (Acute) Labile blood glucose (Acute) Anemia (Chronic) Dyslipidemia (Acute) Pernicious anemia (Acute) Pre-op examination (Acute) Cervicalgia of dmnujjsz-vllkjww-kqavk region (Acute) Nontoxic multinodular goiter (Acute) Paget's disease (Acute) Vitamin D deficiency (Acute) Osteoporosis (Acute) Abdominal pain (Acute) Past Medical History Medical History (Updated 10/16/22 @ 09:49 by Angela Gilman MD) Anemia Asthma Cervicalgia of fhgphlsi-pfpmzrv-wfgpi region Dyslipidemia Dysuria 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 Fibromyalgia Frequent UTI HTN (hypertension) Iron deficiency anemia Labile blood glucose Microscopic hematuria Murmur Needle exposure Nontoxic multinodular goiter Osteoarthritis Osteoporosis Paget's disease Pernicious anemia Pre-op examination Vitamin D deficiency Family History Family History Mother Diabetes HTN (hypertension) Father Pancreatic cancer Diabetes HTN (hypertension) Maternal Grandmother Myocardial infarction Cancer Family/Other FH: mental illness Substance use disorder Other Mental health disorder Surgical History Surgical History H/O laparoscopic adjustable gastric banding History of delivery History of dilation and curettage History of lobectomy of thyroid Hx of gastric bypass Hx of lithotripsy Hx of tonsillectomy Mass of right parotid gland Social History Social History Household Members: Family Housing: House Are you a primary customer care specialist to a significant other at home: No Do you presently have visiting nurse or other home services: No Alcohol intake: never Patient Tobacco Use Status: Former Tobacco user Tobacco use type: Cigarette e-Cigarette/Vaping Use: Never Used Second Hand Smoke Exposure: No Use of substances other than those prescribed or required for medical reasons: No Are you DNR?: No Advance Directives: No Advance Directives Information Provided: Yes service: No Current occupational status: unemployed and disabled Sexual orientation: Straight/Heterosexual Gender identity: Female Cognitive needs: No Hearing needs: No Vision needs: Yes (glasses) Meds Allergies Allergy/AdvReac Type Severity Reaction Status Date / Time phentermine Allergy Intermediate Palpitation Verified 10/04/22 14:47 s Home Medications Medication Instructions Recorded Confirmed Last Taken Type albuterol sulfate 90 mcg/actuation 2 puff inhalation Q6H PRN 08/22/20 10/04/22 Unknown History aerosol inhaler Shortness Of Breath Or Wheezing acetaminophen 500 mg capsule 500 mg PO Q6H PRN Pain 10/05/20 10/04/22 Unknown History calcium citrate 500 mg PO BID 08/17/21 10/04/22 Unknown History lancets 30 gauge (Pure Comfort #100 ea 08/17/21 10/04/22 Unknown History Safety Lancets) Exam Exam Date and Time: October 15, [id number] Pertinent Lab Results Pertinent Lab Results: Laboratory Tests 07/12/22 07/12/22 11:41 11:41 WBC 7.3 Hgb 11.2 L Hct 34.7 L Plt Count 369 Sodium 139 Potassium 4.6 Chloride 104 Carbon Dioxide 25 BUN 13 Creatinine 0.64 Assessment and Plan Assessment Anesthesia Assessment: Chart Reviewed Documented by User: Angela Gilman MD 10/16/22 09:51 [facility] Past Medical History Medical History (Updated 10/16/22 @ 09:49 by Angela Gilman MD) Anemia Asthma Cervicalgia of ltgmuhfr-luaepqr-anyst region Dyslipidemia Dysuria 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 Fibromyalgia Frequent UTI HTN (hypertension) Iron deficiency anemia Labile blood glucose Microscopic hematuria Murmur Needle exposure Nontoxic multinodular goiter Osteoarthritis Osteoporosis Paget's disease Pernicious anemia Pre-op examination Vitamin D deficiency Family History Family History Mother Diabetes HTN (hypertension) Father Pancreatic cancer Diabetes HTN (hypertension) Maternal Grandmother Myocardial infarction Cancer Family/Other FH: mental illness Substance use disorder Other Mental health disorder Family history of problems with anesthesia: No Surgical History Surgical History H/O laparoscopic adjustable gastric banding History of delivery History of dilation and curettage History of lobectomy of thyroid Hx of gastric bypass Hx of lithotripsy Hx of tonsillectomy Mass of right parotid gland History of Problems with Anesthesia: No Social History Social History Household Members: Family Housing: House Are you a primary customer care specialist to a significant other at home: No Do you presently have visiting nurse or other home services: No Alcohol intake: never Patient Tobacco Use Status: Former Tobacco user Tobacco use type: Cigarette e-Cigarette/Vaping Use: Never Used Second Hand Smoke Exposure: No Use of substances other than those prescribed or required for medical reasons: No Are you DNR?: No Advance Directives: No Advance Directives Information Provided: Yes service: No Current occupational status: unemployed and disabled Sexual orientation: Straight/Heterosexual Gender identity: Female Cognitive needs: No Hearing needs: No Vision needs: Yes (glasses) Meds Allergies Allergy/AdvReac Type Severity Reaction Status Date / Time phentermine Allergy Intermediate Palpitation Verified 10/04/22 14:47 s Home Medications Medication Instructions Recorded Confirmed Last Taken Type albuterol sulfate 90 mcg/actuation 2 puff inhalation Q6H PRN 08/22/20 10/04/22 Unknown History aerosol inhaler Shortness Of Breath Or Wheezing acetaminophen 500 mg capsule 500 mg PO Q6H PRN Pain 10/05/20 10/04/22 Unknown History calcium citrate 500 mg PO BID 08/17/21 10/04/22 Unknown History lancets 30 gauge (Pure Comfort #100 ea 08/17/21 10/04/22 Unknown History Safety Lancets) Exam Height,Weight and Vital Signs: Height 5 ft Weight 68.492 kg Vital Signs Temp Pulse Resp BP Pulse Ox O2 Del Method 10/16/22 07:28 96.9 F 59 18 123/75 98 Room Air Pertinent Lab Results Pertinent Lab Results: Laboratory Tests 07/12/22 07/12/22 11:41 11:41 WBC 7.3 Hgb 11.2 L Hct 34.7 L Plt Count 369 Sodium 139 Potassium 4.6 Chloride 104 Carbon Dioxide 25 BUN 13 Creatinine 0.64 Lab Results 10/16/22 10/16/22 10/16/22 Range/Units 07:20 08:01 08:14 POC Glucose 84 66 73 (60-115) mg/dL Airway Mallampati Class: II TM Dist: >3cm Neck ROM: Full Loose/Missing/Broken Teeth: No Heart: RR Lungs: CTA Assessment and Plan Assessment Anesthesia Assessment: Anesthesia Plan Discussed Final Anesthetic Review Family History of Problems with Anesthesia: No History of Problems with Anesthesia: No NPO: Yes ASA Class: II Final Preanesthetic Review: No Changes in Pt Med Stat, Meds/Allgs Chart Reviewed, Consent Obtained/Reviewed and Anes Risks/Benef Reviewed Patient Risk: Low Procedure Risk: Low Assessment/Block/Sedation in SS: Assess/Block/Sedation-SS Anesthetic Plan Anesthetic Plan: GA Disposition: Standard PACU
[2022-10-16 07:13] VITALS: BMI 29.5
[2022-10-16 07:25] LABS: Glucose, Whole Blood 84 mg/dL (60-115)
[2022-10-16 07:28] VITALS: BP 123/75; PULSE 59; RESP 18; TEMP 36.1; O2SAT 98; BMI 29.5
[2022-10-16] MEDS: Lactated Ringers 1,000 ML 100 ML IVCONT (08:00)
[2022-10-16 08:11] LABS: Glucose, Whole Blood 66 mg/dL (60-115)
[2022-10-16 08:19] LABS: Glucose, Whole Blood 73 mg/dL (60-115)
--- NOTE | 2022-10-16 08:26 | MHC.SHP ---
Pre-Procedural Eval Section A Date of Service: 10/16/22 The patient is an INPATIENT: No The History & Physical has been completed within 30 days and I have reviewed it.: Yes Section B Chief Complaint: Dysuria Allergies: Allergies Allergy/AdvReac Type Severity Reaction Status Date / Time phentermine Allergy Intermediate Palpitation Verified 10/04/22 14:47 s Plan I have reviewed the history and physical and performed a pertinent physical examination on my patient. No changes have occurred unless specified. Cysto/hydrodistension. Discussed risks to include but not limited to, blood in the urine, burning with urination, urgency.
[2022-10-16] MEDS: Dextrose 5 % 1,000 ML 20 ML IVCONT (08:40)
--- NOTE | 2022-10-16 08:41 | PC.NURSE ---
pt with blood sugar84 @ 0722 asymptomatic. recheck [address] foley d5w 250ml iv bag up at [facility]. per pt just a little bit to be given . iv stopped & LR up after repeat blood sugar 73
[2022-10-16 09:28] VITALS: BP 122/62; PULSE 60; RESP 18; TEMP 36.4; O2SAT 98
--- NOTE | 2022-10-16 09:31 | P.OP_ITS ---
Operative Note Operative Note Date of Service: 10/16/22 Narrative: PREOP DIAGNOSIS: Dysuria, recurrent Uti's, microscopic hematuria POSTOP DIAGNOSIS: Dysuria, recurrent Uti's, microscopic hematuria, urethral stenosis PROCEDURE: Urethral Dilation, CYSTOSCOPY HYDRODISTENTION Indications: 62 year old female who has been seen in the office for recurrent UTIs.? Comorbidity diabetes. Imagin05/17/22--CT ABDOMEN AND PELVIS WITH CONTRAST-- kidneys wnl, no renal calculi??? Details of procedure: The patient was brought into the operating room placed on the OR table in supine position. 2 g of Ancef IV. General anesthesia was admi nistered. The patient was repositioned into lithotomy position, prepped and draped in the usual sterile fashion. Time-out was done per protocol. A 22 fr cystoscope was not able to be passed transurethrally. The urethral meatus was dilated sequentially starting with 12 fr up to 24 fr. Subsequently giulia 22 fr cystoscope with obturator was placed transurethrally into the bladder. Urine was drained from the bladder measuring 300 mL. urine was sent for culture. The right and left ureteral orifices were visualized along the trigone in normal position. The entire bladder was visualized. There were no suspicious bladder lesions seen. There were mild to moderate trabeculations noted. The bladder was filled with sterile water at 80 cm of water pressure under gravity. The bladder was distended for 2 minutes. Bladder capacity measured 700 mL. Revisualization of the bladder, no glomerulations or Jason ulcerations observed. The bladder was refilled with sterile water again at 80 cm of water pressure under gravity. The bladder was distended for 1 minute. The fluid was drained from the bladder and measured 700 mL. The cystoscope was removed. 2% lidocaine urojet was passed transurethrally, Solution of (1% lidocaine plain, 15 mL, 0.5 % Marcaine 15 mL ) instilled transurethrally into the bladder. The patient was brought out of anesthesia and taken to recovery in stable condition. Complications: None Drains: none
[2022-10-16 09:33] VITALS: BP 115/60; PULSE 61; RESP 16; O2SAT 97
[2022-10-16 09:38] VITALS: BP 123/76; PULSE 63; RESP 16; O2SAT 98
[2022-10-16 09:43] VITALS: BP 117/72; PULSE 65; RESP 16; TEMP 36.3; O2SAT 98
[2022-10-16 09:58] VITALS: BP 110/47; PULSE 54; RESP 16; TEMP 36.3; O2SAT 100
== END 2022-10-16 10:32 ==
LOC: HO.SSS 06:35
PROVIDERS: PCP Internal Medicine; Visit Provider Urology
PROC: 0T7B7ZZ Dilation of Bladder, Via Natural or Artificial Opening (ICD-10-PCS; CPT 52281; principal; 2022-10-16 08:20)
DX: N35.92 Unspecified urethral stricture, female (principal); R30.0 Dysuria; R31.29 Other microscopic hematuria; E11.9 Type 2 diabetes mellitus without complications; I10 Essential (primary) hypertension; J45.909 Unspecified asthma, uncomplicated; Z87.440 Personal history of urinary (tract) infections; Z79.899 Other long term (current) drug therapy; Z88.8 Allergy status to other drugs, medicaments and biological substances
CPT/HCPCS: 52281; 82947; 87086; J0690; J1885; J2250; J2405; J2795; J3010

== ENCOUNTER → 2022-11-01 10:13 | Outpatient (BNVA) | payer OTHER, SELFPAY | PROVIDERS: PCP Internal Medicine; Visit Provider Surgery | DX: N63.11 Unspecified lump in the right breast, upper outer quadrant (principal) | CPT/HCPCS: 99202 ==

== ENCOUNTER → 2022-11-20 12:59 | Outpatient (BNVA) | payer OTHER, SELFPAY | PROVIDERS: PCP Internal Medicine; Referring Provider Internal Medicine; Visit Provider Internal Medicine Cardiovascular Disease | DX: I49.3 Ventricular premature depolarization (principal); I10 Essential (primary) hypertension; E55.9 Vitamin D deficiency, unspecified; Z98.84 Bariatric surgery status | CPT/HCPCS: 93005; 99202 ==

== ENCOUNTER → 2022-12-06 13:00 | Outpatient (BNVA) | payer OTHER, SELFPAY | PROVIDERS: PCP Internal Medicine; Visit Provider Urology | DX: R30.0 Dysuria (principal); R31.0 Gross hematuria; R31.29 Other microscopic hematuria; N30.10 Interstitial cystitis (chronic) without hematuria; E11.9 Type 2 diabetes mellitus without complications; Z98.84 Bariatric surgery status | CPT/HCPCS: 51798; 99212 ==

== ENCOUNTER 2022-12-07 09:24 | Outpatient (REF) | payer OTHER, SELFPAY ==
--- NOTE | ~2022-12-07 | US_ITS ---
EXAMINATION: US ABDOMEN COMPLETE CLINICAL INFORMATION: Generalized abdominal pain. COMPARISON: CT abdomen and pelvis 05/17/2022. . TECHNIQUE: Real-time imaging of the abdominal viscera. Technically limited study secondary to bowel gas. FINDINGS: PANCREAS: Obscured by bowel gas. ABDOMINAL AORTA: The proximal, mid, and distal segments are normal in caliber. INFERIOR VENA CAVA: Visualized portions are normal. LIVER: Liver is mildly enlarged measuring 18.2 cm in span. The liver contour is normal. Few coarse calcified granulomas. No focal hepatic lesion. There is no intrahepatic biliary duct dilatation seen. GALLBLADDER: Not identified and may be surgically absent. COMMON BILE DUCT: Normal in caliber measuring 0.4 cm in diameter. RIGHT KIDNEY: Normal. No hydronephrosis. No renal calculi or focal parenchymal lesions. The kidney measures 10.9 cm in maximum dimension. LEFT KIDNEY: Normal. No hydronephrosis. No renal calculi or focal parenchymal lesions. The kidney measures 10.8 cm in maximum dimension. SPLEEN: Normal. The spleen measures 8.7 cm in maximum dimension. FREE FLUID: None. US/US abdomen complete IMPRESSION: Mild hepatomegaly. Gallbladder was not identified and may be surgically absent.
== END 2022-12-07 09:25 | disposition home or self-care (01) ==
LOC: HO.US 09:24
PROVIDERS: Visit Provider Internal Medicine
DX: R10.84 Generalized abdominal pain (principal)
CPT/HCPCS: 76700

== ENCOUNTER → 2022-12-10 08:07 | Outpatient (REF) | payer OTHER, SELFPAY ==
--- NOTE | 2022-12-10 08:10 | CA_ITS ---
Acquisition Time: 2022-12-10 08:26:23 Total Exercise Time: 00:06:00 Test Indications: CP Medications: SEE CHART Protocol: FLOWER Max HR: 133 BPM 85% of Pred: 156 BPM Max BP: 146/078 mmHG Max Work Load: 7.0 METS Exercise stress test with exercise 6 min of Flower protocol, achieving 85% MPHR, without anginal symptoms, with isolated PVCs which lessened during exercise, with normotensive response to exercise, without EKG changes meeting criteria for ischemia. Test reviewed with Dr Tamez. Referred By: Roby Handy Overread By: CAMPOS LEONE
== END ==
LOC: HO.CARD 08:07
PROVIDERS: Visit Provider Internal Medicine Cardiovascular Disease
DX: Z01.818 Encounter for other preprocedural examination (principal); I49.3 Ventricular premature depolarization
CPT/HCPCS: 93017

== ENCOUNTER → 2022-12-11 09:21 | Outpatient (BNVA) | payer OTHER, SELFPAY | PROVIDERS: PCP Internal Medicine; Referring Provider Internal Medicine; Visit Provider Surgery | DX: Z76.89 Persons encountering health services in other specified circumstances (principal) | CPT/HCPCS: 99211 ==

== ENCOUNTER → 2022-12-13 09:06 | Outpatient (BNVA) | payer OTHER, SELFPAY | PROVIDERS: PCP Internal Medicine; Visit Provider Urology | DX: N30.10 Interstitial cystitis (chronic) without hematuria (principal) | CPT/HCPCS: 51700; 51701; J1643; J2920 ==

== ENCOUNTER → 2022-12-18 09:06 | Outpatient (BNVA) | payer OTHER, SELFPAY | PROVIDERS: PCP Internal Medicine; Visit Provider Internal Medicine Endocrinology, Diabetes & Metabolism | DX: M81.0 Age-related osteoporosis without current pathological fracture (principal); E04.2 Nontoxic multinodular goiter | CPT/HCPCS: 99212 ==

== ENCOUNTER → 2022-12-20 10:15 | Outpatient (BNVA) | payer OTHER, SELFPAY | PROVIDERS: PCP Internal Medicine; Visit Provider Urology | DX: N30.10 Interstitial cystitis (chronic) without hematuria (principal) | CPT/HCPCS: 51700; 51701; J1643; J2920 ==

== ENCOUNTER → 2022-12-27 10:53 | Outpatient (BNVA) | payer OTHER, SELFPAY | PROVIDERS: PCP Internal Medicine; Visit Provider Urology | DX: N30.10 Interstitial cystitis (chronic) without hematuria (principal) | CPT/HCPCS: 51700; 51701; J1643; J2920 ==

== ENCOUNTER → 2023-01-03 13:40 | Outpatient (BNVA) | payer OTHER, SELFPAY | PROVIDERS: PCP Internal Medicine; Visit Provider Urology | DX: N30.10 Interstitial cystitis (chronic) without hematuria (principal) | CPT/HCPCS: 51700; 51701; J1643; J2920 ==

== ENCOUNTER → 2023-01-10 10:58 | Outpatient (BNVA) | payer OTHER, SELFPAY | PROVIDERS: PCP Internal Medicine; Visit Provider Urology | DX: N30.10 Interstitial cystitis (chronic) without hematuria (principal) | CPT/HCPCS: 51700; 51701; J1643; J2920 ==

== ENCOUNTER → 2023-01-11 10:31 | Outpatient (BNVA) | payer OTHER, SELFPAY | PROVIDERS: PCP Internal Medicine; Visit Provider Surgery | DX: N63.11 Unspecified lump in the right breast, upper outer quadrant (principal) | CPT/HCPCS: 99212 ==

== ENCOUNTER 2023-01-14 13:15 | Outpatient (REF) | payer OTHER, SELFPAY ==
--- NOTE | ~2023-01-14 | US_ITS ---
EXAMINATION: US THYROID CLINICAL INFORMATION: Nontoxic multinodular goiter. COMPARISON: Ultrasound thyroid 09/14/2021 and 04/15/2020. TECHNIQUE: Linear transducer grayscale and color Doppler examination with attention to the region of the thyroid. FINDINGS: SIZE: Measurements of the solitary right thyroid lobe and nodules are given in sagittal, anteroposterior and transverse dimensions respectively. Right Thyroid Lobe: 3.9 x 1.2 x 1.9 cm, volume 4.7 mL. Previously 4.4 x 1.3 x 1.8 cm, volume 5.4 mL. Parenchyma: The gland echotexture is homogeneous. Thyroid vascularity is normal. Left Thyroid Lobe: Surgically absent. Isthmus: 0.3 cm in maximum AP dimension. Previously 1.1 cm. No focal thyroid nodule is seen. There are tiny less than 1 cm colloid and simple cysts in right lobe. NODES: No lymphadenopathy is seen in the tissue surrounding the thyroid gland. US/US thyroid IMPRESSION: Left thyroidectomy. Tiny colloid and simple cysts measuring less than 1 cm in right lobe. ACR TI-RADS RECOMMENDATION REFERENCE: Ultrasound-guided fine-needle aspiration, followup ultrasound, no further follow up. * TR1 (0 point) and TR2 (2 points): No FNA or follow up. * TR3 (3 points): FNA if more than or equal to 2.5 cm in maximum dimension, followup ultrasound in 1, 3 and 5 years if 1.5 to 2.4 cm in maximum dimension. * TR4 (4-6 points): FNA if more than or equal to 1.5 cm in maximum dimension, followup ultrasound in 1, 2, 3 and 5 years if 1 to 1.4 cm in maximum dimension. * TR5 (more than or equal to 7 points): FNA if more than or equal to 1 cm in maximum dimension, followup ultrasound every year for 5 years if 0.5 to 0.9 cm in maximum dimension. * TR3, TR4 or TR5 nodules that are below the size threshold for followup receive no follow up.
== END 2023-01-14 13:16 | disposition home or self-care (01) ==
LOC: HO.US 13:15
PROVIDERS: PCP Internal Medicine; Visit Provider Internal Medicine Endocrinology, Diabetes & Metabolism
DX: E04.2 Nontoxic multinodular goiter (principal)
CPT/HCPCS: 76536

== ENCOUNTER → 2023-01-17 11:00 | Outpatient (BNVA) | payer OTHER, SELFPAY | PROVIDERS: PCP Internal Medicine; Visit Provider Urology | DX: N30.10 Interstitial cystitis (chronic) without hematuria (principal) | CPT/HCPCS: 51700; 51701; J1643; J2920 ==

== ENCOUNTER → 2023-01-24 13:17 | Outpatient (BNVA) | payer OTHER, SELFPAY | PROVIDERS: PCP Internal Medicine; Visit Provider Urology | DX: N30.10 Interstitial cystitis (chronic) without hematuria (principal) | CPT/HCPCS: 51700; 51701; J1643; J2920 ==

== ENCOUNTER 2023-01-25 12:50 | Emergency (ER) | payer OTHER, SELFPAY ==
--- NOTE | ~2023-01-25 | XR_ITS ---
EXAMINATION: XR CHEST CLINICAL INFORMATION: Cough. COMPARISON: 05/13/2019 chest radiographs. TECHNIQUE: 2 views of the chest were obtained. FINDINGS: No significant abnormality is noted involving the heart, lungs, mediastinum, bony thorax or soft tissues. XR/XR chest 2V IMPRESSION: No acute cardiopulmonary process.
--- NOTE | ~2023-01-25 | CT_ITS ---
EXAMINATION: CT ABDOMEN AND PELVIS WITH CONTRAST CLINICAL INFORMATION: recent CT w/ developing abscess RUQ, COMPARISON: Prior studies including the most recent 05/17/2022 CT scan and 12/07/2022 ultrasound. I do not have any more recent examinations for comparison TECHNIQUE: Multidetector volumetric imaging was performed from the superior aspect of the liver through the pubic symphysis following administration of 85 mL Omnipaque 300 intravenous contrast. Sagittal and coronal reformatted images were obtained on the technologist workstation.. This CT examination was performed using dose optimization techniques as appropriate, variously including the following: *Automated exposure control *Adjustment of mA and/or kV according to patient size (this includes techniques or standardized protocols for targeted exams where dose is matched to indication/reason for exam; i.e. extremities or head) *Use of iterative reconstruction technique DLP: 604 mGy-cm FINDINGS: LUNG BASES: Dependent atelectasis LIVER, GALLBLADDER, AND BILIARY TREE: Coarsened calcification granuloma the lateral right lobe the liver. No suspicious focal hepatic lesion. Gallbladder surgically absent. PANCREAS: Somewhat atrophic but otherwise grossly unremarkable SPLEEN: Unremarkable. ADRENAL GLANDS: Unremarkable. KIDNEYS AND URETERS: The kidneys are normal in size, shape, and attenuation. No hydronephrosis, hydroureter, or calculi seen. No perinephric stranding. BLADDER: Tiny bubble of air in the nondependent bladder may represent recent catheterization. This could be clinically correlated. GASTROINTESTINAL TRACT: There are multiple abnormalities present. Postoperative changes. Present in the stomach with likely surgical clips but this is difficult to assess without oral contrast. I do not appreciate any obstructive changes. There is significant stranding to the adjacent soft tissues. The small bowel is decompressed with anastomotic staple line in the left midabdomen. There is stool and and residual dense contrast is seen within the colon. The transverse colon is significantly decompressed but there is a significant amount of stranding in the fat in the anterior upper abdomen adjacent to the transverse colon. There is a 3 cm collection along the anterior aspect of the proximal transverse colon abutting the right anterior abdominal wall best seen on axial image /. Other few tiny bubbles of air in the soft tissues directly adjacent cysts as it extends to a midline wound/incision. There is likely dense packing material within this opening. I do not appreciate a discrete fistulous tract to the bowel although there is significant inflammatory changes in this location. There is a small 2 cm collection within the right anterior abdominal wall musculature seen best on axial image 34/90. This could represent recent surgical site. Clinical correlation would be recommended. There is a suggestion of a prior surgical site in the left mid abdomen as well without discrete collection although there is a tiny bubble of air in the anterior abdominal wall in this location. I do not appreciate any obstructive changes to the colon ABDOMINAL WALL: As described above there is anasarca and likely extensive postoperative changes. Clinical correlation with patient's surgical history would be needed. LYMPHOVASCULAR STRUCTURES: Vascular calculation within the aorta iliac system. I do not appreciate any bulky adenopathy PELVIC VISCERA: Unremarkable. OSSEOUS STRUCTURES: Unremarkable. CT/CT abdomen pelvis w IV con IMPRESSION: 1. Extensive postoperative changes as described above. I do not appreciate any obstructive changes to the bowel. There is significant stranding to the fat in the anterior upper abdomen adjacent to the transverse colon. There is a 3 cm collection along the anterior aspect of the proximal transverse colon abutting the right anterior abdominal wall best with tiny bubbles of air and surrounding inflammatory change. Other tiny bubbles of air are seen in this location. I do not appreciate any discrete fistulous tract to the bowel although there is significant inflammatory changes in this location. Correlation with the timing of recent surgery would be recommended. There is a small 2 cm collection within the right anterior abdominal wall musculature best seen on axial. This could represent a recent surgical site. There is a tiny bubble of air in the left anterior abdominal wall possibly representing a surgical are clear site as well. I do not appreciate any discrete collection in the left anterior abdominal wall. 2. Tiny bubble of air in the nondependent bladder may represent recent catheterization. This could be clinically correlated.
[2023-01-25 13:50] VITALS: BP 129/66; PULSE 87; RESP 18; TEMP 37.3; O2SAT 98; BMI 29.2
--- NOTE | 2023-01-25 13:50 | ED_ITS ---
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 patient reports that she had a lap band reversal last 01/18/2023 at [facility] she states that she was in the hospital and discharged 2 days later. She was also told that something was infected. She states that she was not given any antibiotics patient states that she has had a large open abdominal wound has been draining foul-smelling drainage. She went to [facility] twice since then and has had surgical consult and they just keep Raf did change my dressings on my own. Of note, she started amoxicillin 500 mg t.i.d. 2 days ago which she states she was prescribed by the emergency department at [facility] patient states that she feels weak and dizzy when she stands up and every time I stand up I have a lot of pus coming out of my abdomen. She states that she was given supplies to continue changing the dressing on her own <Bear Marshall - Last Filed: 01/25/23 23:05> Related Data Home medications: Home Medications Medication Instructions Recorded Confirmed albuterol sulfate 90 mcg/actuation 2 puff inhalation Q6H PRN 08/22/20 01/14/23 aerosol inhaler Shortness Of Breath Or Wheezing acetaminophen 500 mg capsule 500 mg PO Q6H PRN Pain 10/05/20 01/14/23 calcium citrate 500 mg PO BID 08/17/21 01/14/23 lancets 30 gauge (Pure Comfort #100 ea 08/17/21 01/14/23 Safety Lancets) epinephrine 0.3 mg/0.3 mL IM 12/18/22 01/14/23 injection, auto-injector Previous Rx's Medication Instructions Recorded folic acid 1 mg tablet 1 mg PO DAILY 90 days #90 tabs 02/09/22 lancets 28 gauge (FreeStyle #100 ea 03/17/22 Lancets) metoprolol succinate 25 mg 25 mg PO DAILY 90 days #90 tabs 04/12/22 tablet,extended release 24 hr omeprazole 20 mg capsule,delayed 20 mg PO DAILY 90 days #90 caps 07/16/22 release pravastatin 20 mg tablet 20 mg PO BEDTIME 90 days #90 tabs 07/16/22 blood-glucose meter (FreeStyle #1 ea 08/14/22 Lite Meter kit) cholecalciferol (vitamin D3) 25 25 mcg PO DAILY 90 days #90 caps 08/14/22 mcg (1,000 unit) capsule alcohol swabs (Alcohol Prep Pads) 1 pad topical TID 30 days #100 ea 08/24/22 phenazopyridine 200 mg tablet 200 mg PO .bidprn urinary 10/16/22 (Pyridium) discomfort #20 tabs acetaminophen 500 mg capsule 500 mg PO QID PRN pain 10 days #30 11/28/22 caps ondansetron HCl 4 mg tablet 4 mg PO Q8H PRN nausea and 11/28/22 vomiting 7 days #14 tabs hydroxyzine pamoate 25 mg capsule 25 mg PO BEDTIME #60 caps 12/06/22 (Vistaril) blood sugar diagnostic (FreeStyle #50 ea 12/25/22 Lite Strips) mecobalamin (vitamin B12) 10,000 1,000 mcg IM .once a month 30 days 01/14/23 mcg solution for injection #1 ea syringe with needle 3 mL 22 gauge #1 ea 01/14/23 x 1 (Carepoint Luer Lock Syringe with needle) <LILIAM Aguiar - Last Filed: 01/25/23 13:58> Allergies/adverse reactions: Allergies Allergy/AdvReac Type Severity Reaction Status Date / Time phentermine Allergy Intermediate Palpitation Verified 01/14/23 15:18 s <LILIAM Aguiar - Last Filed: 01/25/23 13:58> Review of Systems Constitutional: Constitutional: Reports as per HPI, Reports chills, Reports fever(s), Denies headache(s) and Reports weakness <Bear Marshall - Last Filed: 01/25/23 23:05> ENT: Denies headache(s) <Bear OKobi - Last Filed: 01/25/23 23:05> Cardiovascular: Cardiovascular: Denies chest pain and Denies dyspnea <Bear LiamColumbiana - Last Filed: 01/25/23 23:05> Respiratory: Respiratory: Denies cough and Denies dyspnea <Bear OColumbiana - Last Filed: 01/25/23 23:05> Gastrointestinal: Gastrointestinal: Reports abdominal pain <Bear OJovani - Last Filed: 01/25/23 23:05> Comments: reports large wound draining foul-smelling discharge <Bear O'[place] - Last Filed: 01/25/23 23:05> Genitourinary: Genitourinary: Denies dysuria <Bear ToniKobi - Last Filed: 01/25/23 23:05> Neurologic: Denies headache(s), Denies focal weakness and Reports weakness <Bear ToniKobi - Last Filed: 01/25/23 23:05> COUNTS INCLUDE 234 BEDS AT THE [facility] Past Medical History Medical History: Medical History Anemia Asthma Cervicalgia of nkcbqkfc-[id number]-blndb region Dyslipidemia Dysuria 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 Fibromyalgia Frequent UTI Hepatomegaly HTN (hypertension) Iron deficiency anemia Labile blood glucose Microscopic hematuria Murmur Needle exposure Nontoxic multinodular goiter Osteoarthritis Osteoporosis Paget's disease Pernicious anemia Pre-op examination Vitamin D deficiency <LILIAM Aguiar - Last Filed: 01/25/23 13:58> Surgical History: Surgical History H/O laparoscopic adjustable gastric banding History of delivery History of cystoscopy History of dilation and curettage History of lobectomy of thyroid Hx of gastric bypass Hx of lithotripsy Hx of tonsillectomy Mass of right parotid gland <LILIAM Aguiar - Last Filed: 01/25/23 13:58> Family History Family History: Family History Mother Diabetes HTN (hypertension) Father Pancreatic cancer Diabetes HTN (hypertension) Maternal Grandmother Myocardial infarction Cancer Brother Pancreatic cancer Sister Uterine cancer Other Mental health disorder <LILIAM Aguiar - Last Filed: 01/25/23 13:58> Social History Social History: Social History Household Members: Family Housing: House Are you a primary acute care surgeon to a significant other at home: No Do you presently have visiting nurse or other home services: No Alcohol intake: never Patient Tobacco Use Status: Former Tobacco user Tobacco use type: Cigarette e-Cigarette/Vaping Use: Never Used Second Hand Smoke Exposure: No Advance Directives: No Advance Directives Information Provided: No service: No Current occupational status: unemployed and disabled Sexual orientation: Straight/Heterosexual Gender identity: Female Cognitive needs: No Hearing needs: No Vision needs: Yes (glasses) <LILIAM Aguiar - Last Filed: 01/25/23 13:58> Physical Exam ED Vital Signs: Vital Signs - 24 hr 01/25/23 13:50 01/25/23 19:47 Temperature 99.2 F 99.3 F Pulse Rate 87 90 Respiratory Rate 18 16 Blood Pressure 129/66 104/64 Pulse Oximetry 98 98 Oxygen Delivery Method Room Air Room Air BMI result Body Mass Index 29.2 <LILIAM Aguiar - Last Filed: 01/25/23 13:58> Vital Signs - 24 hr 01/25/23 13:50 01/25/23 19:47 Temperature 99.2 F 99.3 F Pulse Rate 87 90 Respiratory Rate 18 16 Blood Pressure 129/66 104/64 Pulse Oximetry 98 98 Oxygen Delivery Method Room Air Room Air BMI result Body Mass Index 29.2 <Bear Marshall - Last Filed: 01/25/23 23:05> Const General: healthy appearing, comfortable, no acute distress, alert and awake <Bear Marshall - Last Filed: 01/25/23 23:05> Nutritional Appearance: well nourished <Bear O Last Filed: 01/25/23 23:05> Orientation/consciousness: patient oriented x3 <Bear Last Filed: 01/25/23 23:05> HENMT Head: Yes normocephalic and Yes atraumatic < Last Filed: 01/25/23 23:05> Throat: Yes posterior oropharynx normal < Last Filed: 01/25/23 23:05> Eyes Eyelids: Yes eyelids normal < Last Filed: 01/25/23 23:05> Conjunctivae: conjunctivae normal < Last Filed: 01/25/23 23:05> Sclerae: sclerae normal < Last Filed: 01/25/23 23:05> Corneas: corneas normal < Last Filed: 01/25/23 23:05> Pupils: Equal, round and reactive pupils present <Bear Last Filed: 01/25/23 23:05> EOM: EOMs intact bilaterally < Last Filed: 01/25/23 23:05> Neck Neck: Yes full ROM < Last Filed: 01/25/23 23:05> Resp Effort & Inspection: normal respiratory effort, able to speak in complete sentences, no audible wheezes and not labored <Bear O Last Filed: 01/25/23 23:05> Auscultation: clear to auscultation bilaterally < Last Filed: 01/25/23 23:05> Cardio Rate: regular rate < Last Filed: 01/25/23 23:05> Rhythm: regular rhythm < Last Filed: 01/25/23 23:05> GI Other: there is an approximately 4 x 4 cm open wound in the epigastric region. This was packed with iodoform packing. It was saturated with foul-smelling brown discharge. I removed the packing and there is a significant amount of drainage remaining within the wound. The wound extends several cm into the abdominal wall. There is no surrounding erythema to the wound <Bear MuñozColumbiana - Last Filed: 01/25/23 23:05> Skin General skin exam: no rashes or lesions noted and elasticity normal <Bear - Last Filed: 01/25/23 23:05> Neuro General: patient oriented x3 <Bear - Last Filed: 01/25/23 23:05> Cranial nerves: Yes CN's II-XII intact bilaterally, Yes Equal, round and reactive pupils present and Yes Bilaterally intact EOM present <Bear Toni - Last Filed: 01/25/23 23:05> Cognition (Neuro): normal cognition <Bear - Last Filed: 01/25/23 23:05> Extrem Other: Moving all extremities well without any obvious deformities <Bear O - Last Filed: 01/25/23 23:05> Course Course Course Narrative: ALBINO Nolan is a 62 yo F, with a past medical history of HTN, HLD, paget's disease, and osteoporosis, who presents to the ER for ?wound infection. Patient had a removal of her lap band performed by Dr. Loya on 01/18/2023. Daughter states there was concern for a wound infection and followed up with Dr. Loya multiple times. Patient was seen by Dr. Loya on Sunday 01/21, when it was draining purulent drainage, cleansed the wound and discharged outpatient. 01/22 had fever 01/23 went to [facility] due to fevers, cleaned wound and sent home with packing. 01/24 purulent red drainage expressed from surgical wound seen at [facility] She is not currently on antibiotics as there was an error at the pharmacy. Plan - Labs ordered. will obtain records from [facility]. <LILIAM Aguiar - Last Filed: 01/25/23 13:58> Reevaluation(s) Reevaluation #1: was family able to review the records from [facility]. The patient had a CT scan on 01/23/2023 which showed a single 2.2 x 2.6 cm developing abscess in the right upper quadrant. It was felt this was too small for IR to drain. She was discharged on oral amoxicillin and told to follow-up. I did give the patient a dose of Zosyn IV in our ER Alcoholic. Her vital signs remained stable there is no evidence of sepsis such as her localized infection. CT scan today shows concern for 2 additional areas of developing abscess 1 right mid abdomen while and then additional small area developing abscess in the left anterior abdomen wall. I did discuss with our general surgical attending, Dr. Pastrana who discussed with the director of bariatric and it is felt that the patient has follow-up care should be consistent with her current surgeon at [facility] for continuation of care. I discussed this with the patient who reports that she does not want to be transferred to [facility] at this time. She would prefer to go home and then drive herself to [facility] in morning. given that there is no evidence of systemic infection, I feel this is an appropriate plan. Again, she was given a dose of IV antibiotics. The patient was provided with a copy of her CT on a disc and will also be given a printout <Bear Marshall - Last Filed: 01/25/23 23:05> Time: 22:55 <Bear Marshall - Last Filed: 01/25/23 23:05> Medications Administered Discontinued Medications Generic Name Dose Route Start Last Admin Trade Name Freq PRN Reason Stop Dose Admin Iohexol 100 ml 01/25/23 16:55 01/25/23 16:56 Iohexol 350 Mg/Ml 100 Ml Infus..Btl IV 01/25/23 16:56 85 ml ONCE ONE Administration <LILIAM Aguiar - Last Filed: 01/25/23 13:58> Medications Administered Discontinued Medications Generic Name Dose Route Start Last Admin Trade Name Freq PRN Reason Stop Dose Admin Iohexol 100 ml 01/25/23 16:55 01/25/23 16:56 Iohexol 350 Mg/Ml 100 Ml Infus..Btl IV 01/25/23 16:56 85 ml ONCE ONE Administration <Bear Marshall - Last Filed: 01/25/23 23:05> Medical Decision Making Medical Decision Making MDM Narrative: patient's vital signs are stable, she has a temperature 99.3?, is normotensive, she is not tachycardic. There is no leukocytosis his white count is 10.4. She has chronic anemia but her hemoglobin is slightly less than baseline at 9.0. The patient's chemistries are without significant abnormality. A CT scan of the abdomen pelvis was ordered which shows 3 separate fluid collections within the abdominal wall. There is no sign of systemic infection at this time. The patient is currently taking amoxicillin for her infection. I am attempting to get records from [facility] for the patient's surgery and recent visits to help determine plan of care and disposition. <Bear Marshall - Last Filed: 01/25/23 23:05> Differential Diagnosis Intra-abdominal abscess Abdominal wound Abscess Cellulitis Colonic fistula <Bear Marshall - Last Filed: 01/25/23 23:05> Lab Data Result Diagrams: 01/25/23 13:59 01/25/23 13:59 <LILIAM Aguiar - Last Filed: 01/25/23 13:58> Labs: Lab Results 01/25/23 01/25/23 01/25/23 Range/Units 13:59 13:59 13:59 WBC 10.4 (4.8-10.8) X10*3/uL RBC 3.15 L (4.20-5.50) X10*6/uL Hgb 9.0 L (12.0-16.0) g/dl Hct 26.9 L (37.0-47.0) % MCV 85.4 (80.0-98.0) fL MCH 28.6 (27.0-33.0) pg MCHC 33.5 (31.0-35.0) g/dl RDW 14.3 (11.0-16.0) % Plt Count 460 H D (160-400) X10*3/uL MPV 9.2 L (9.4-12.3) fL Immature Gran % (Auto) 3.9 H (0.0-0.4) % Neut % (Auto) 74.8 H (45-73) % Lymph % (Auto) 13.6 L (20-40) % [place] % (Auto) 6.5 (2-11) % Eos % (Auto) 1.0 (0-4) % Baso % (Auto) 0.2 (0-2) % Lymph # (Auto) 1.4 (1.2-4.9) X10*3/uL [place] # (Auto) 0.7 (0.1-1.2) X10*3/uL Eos # (Auto) 0.1 (0.0-0.4) X10*3/uL Baso # (Auto) 0.0 (0.0-0.2) X10*3/uL Abs Immat Gran (auto) 0.40 H (0.00-0.03) X10*3/uL Absolute Neuts (auto) 7.8 (2.0-8.3) x10*3/uL Absolute Nucleated RBC 0.000 (0.0-0.012) X10*3/uL Nucleated RBC % (auto) 0.0 (0.0-0.2) /100WBC Sodium 136 (135-145) mmol/L Potassium 3.8 (3.3-5.1) mmol/L Chloride 103 (96-108) mmol/L Carbon Dioxide 19 L (22-29) mmol/L Anion Gap 18 (12-20) BUN 8 L (9-16) mg/dL Creatinine 0.54 (0.5-1.4) mg/dL Estim Creat Clear Calc 90.5 Estimated GFR > 60 Random Glucose 104 (60-115) mg/dL Lactic Acid (0.5-2.0) mmol/L Calcium 8.8 (8.4-10.2) mg/dL Magnesium 1.6 (1.6-2.6) mg/dL Total Bilirubin 0.5 (0.0-1.0) mg/dL Direct Bilirubin 0.2 (0.0-0.5) mg/dL AST 26 (5-31) U/L ALT 20 (0-31) U/L Alkaline Phosphatase 162 H (39-117) U/L Total Protein 6.1 L (6.5-8.0) g/dL Albumin 3.0 L (3.5-5.0) g/dL Urine Color Urine Appearance Urine pH (5.0-9.0) Ur Specific [place] (1.005-1.025) Urine Protein (Neg-Trace) mg/dL Urine Glucose (UA) (Negative) mg/dL Urine Ketones (Negative) mg/dL Urine Blood (Negative) Urine Nitrite (Negative) Ur Leukocyte Esterase (Negative) Urine RBC (0-2) /HPF Urine WBC (0-5) /HPF Ur Squamous Epith Cells (0-2) /HPF Urine Bacteria (None Seen) Hyaline Casts (0-2) /LPF COVID-19 (ZAIRE) Negative (Negative) COVID-19 Clin Com See Note 01/25/23 01/25/23 Range/Units 14:57 19:44 WBC (4.8-10.8) X10*3/uL RBC (4.20-5.50) X10*6/uL Hgb (12.0-16.0) g/dl Hct (37.0-47.0) % MCV (80.0-98.0) fL MCH (27.0-33.0) pg MCHC (31.0-35.0) g/dl RDW (11.0-16.0) % Plt Count (160-400) X10*3/uL MPV (9.4-12.3) fL Immature Gran % (Auto) (0.0-0.4) % Neut % (Auto) (45-73) % Lymph % (Auto) (20-40) % [place] % (Auto) (2-11) % Eos % (Auto) (0-4) % Baso % (Auto) (0-2) % Lymph # (Auto) (1.2-4.9) X10*3/uL [place] # (Auto) (0.1-1.2) X10*3/uL Eos # (Auto) (0.0-0.4) X10*3/uL Baso # (Auto) (0.0-0.2) X10*3/uL Abs Immat Gran (auto) (0.00-0.03) X10*3/uL Absolute Neuts (auto) (2.0-8.3) x10*3/uL Absolute Nucleated RBC (0.0-0.012) X10*3/uL Nucleated RBC % (auto) (0.0-0.2) /100WBC Sodium (135-145) mmol/L Potassium (3.3-5.1) mmol/L Chloride (96-108) mmol/L Carbon Dioxide (22-29) mmol/L Anion Gap (12-20) BUN (9-16) mg/dL Creatinine (0.5-1.4) mg/dL Estim Creat Clear Calc Estimated GFR Random Glucose (60-115) mg/dL Lactic Acid 0.7 (0.5-2.0) mmol/L Calcium (8.4-10.2) mg/dL Magnesium (1.6-2.6) mg/dL Total Bilirubin (0.0-1.0) mg/dL Direct Bilirubin (0.0-0.5) mg/dL AST (5-31) U/L ALT (0-31) U/L Alkaline Phosphatase (39-117) U/L Total Protein (6.5-8.0) g/dL Albumin (3.5-5.0) g/dL Urine Color Yellow Urine Appearance Clear Urine pH 7.0 (5.0-9.0) Ur Specific [place] >= 1.030 H (1.005-1.025) Urine Protein Trace (Neg-Trace) mg/dL Urine Glucose (UA) Negative (Negative) mg/dL Urine Ketones Negative (Negative) mg/dL Urine Blood Small (1+) H (Negative) Urine Nitrite Negative (Negative) Ur Leukocyte Esterase Negative (Negative) Urine RBC 6-10 H (0-2) /HPF Urine WBC 0-5 (0-5) /HPF Ur Squamous Epith Cells 0-2 (0-2) /HPF Urine Bacteria None Seen (None Seen) Hyaline Casts 0-2 (0-2) /LPF COVID-19 (ZAIRE) (Negative) COVID-19 Clin Com <LILIAM Aguiar - Last Filed: 01/25/23 13:58> Lab Results 01/25/23 01/25/23 01/25/23 Range/Units 13:59 13:59 13:59 WBC 10.4 (4.8-10.8) X10*3/uL RBC 3.15 L (4.20-5.50) X10*6/uL Hgb 9.0 L (12.0-16.0) g/dl Hct 26.9 L (37.0-47.0) % MCV 85.4 (80.0-98.0) fL MCH 28.6 (27.0-33.0) pg MCHC 33.5 (31.0-35.0) g/dl RDW 14.3 (11.0-16.0) % Plt Count 460 H D (160-400) X10*3/uL MPV 9.2 L (9.4-12.3) fL Immature Gran % (Auto) 3.9 H (0.0-0.4) % Neut % (Auto) 74.8 H (45-73) % Lymph % (Auto) 13.6 L (20-40) % [place] % (Auto) 6.5 (2-11) % Eos % (Auto) 1.0 (0-4) % Baso % (Auto) 0.2 (0-2) % Lymph # (Auto) 1.4 (1.2-4.9) X10*3/uL [place] # (Auto) 0.7 (0.1-1.2) X10*3/uL Eos # (Auto) 0.1 (0.0-0.4) X10*3/uL Baso # (Auto) 0.0 (0.0-0.2) X10*3/uL Abs Immat Gran (auto) 0.40 H (0.00-0.03) X10*3/uL Absolute Neuts (auto) 7.8 (2.0-8.3) x10*3/uL Absolute Nucleated RBC 0.000 (0.0-0.012) X10*3/uL Nucleated RBC % (auto) 0.0 (0.0-0.2) /100WBC Sodium 136 (135-145) mmol/L Potassium 3.8 (3.3-5.1) mmol/L Chloride 103 (96-108) mmol/L Carbon Dioxide 19 L (22-29) mmol/L Anion Gap 18 (12-20) BUN 8 L (9-16) mg/dL Creatinine 0.54 (0.5-1.4) mg/dL Estim Creat Clear Calc 90.5 Estimated GFR > 60 Random Glucose 104 (60-115) mg/dL Lactic Acid (0.5-2.0) mmol/L Calcium 8.8 (8.4-10.2) mg/dL Magnesium 1.6 (1.6-2.6) mg/dL Total Bilirubin 0.5 (0.0-1.0) mg/dL Direct Bilirubin 0.2 (0.0-0.5) mg/dL AST 26 (5-31) U/L ALT 20 (0-31) U/L Alkaline Phosphatase 162 H (39-117) U/L Total Protein 6.1 L (6.5-8.0) g/dL Albumin 3.0 L (3.5-5.0) g/dL Urine Color Urine Appearance Urine pH (5.0-9.0) Ur Specific [place] (1.005-1.025) Urine Protein (Neg-Trace) mg/dL Urine Glucose (UA) (Negative) mg/dL Urine Ketones (Negative) mg/dL Urine Blood (Negative) Urine Nitrite (Negative) Ur Leukocyte Esterase (Negative) Urine RBC (0-2) /HPF Urine WBC (0-5) /HPF Ur Squamous Epith Cells (0-2) /HPF Urine Bacteria (None Seen) Hyaline Casts (0-2) /LPF COVID-19 (ZAIRE) Negative (Negative) COVID-19 Clin Com See Note 01/25/23 01/25/23 Range/Units 14:57 19:44 WBC (4.8-10.8) X10*3/uL RBC (4.20-5.50) X10*6/uL Hgb (12.0-16.0) g/dl Hct (37.0-47.0) % MCV (80.0-98.0) fL MCH (27.0-33.0) pg MCHC (31.0-35.0) g/dl RDW (11.0-16.0) % Plt Count (160-400) X10*3/uL MPV (9.4-12.3) fL Immature Gran % (Auto) (0.0-0.4) % Neut % (Auto) (45-73) % Lymph % (Auto) (20-40) % [place] % (Auto) (2-11) % Eos % (Auto) (0-4) % Baso % (Auto) (0-2) % Lymph # (Auto) (1.2-4.9) X10*3/uL [place] # (Auto) (0.1-1.2) X10*3/uL Eos # (Auto) (0.0-0.4) X10*3/uL Baso # (Auto) (0.0-0.2) X10*3/uL Abs Immat Gran (auto) (0.00-0.03) X10*3/uL Absolute Neuts (auto) (2.0-8.3) x10*3/uL Absolute Nucleated RBC (0.0-0.012) X10*3/uL Nucleated RBC % (auto) (0.0-0.2) /100WBC Sodium (135-145) mmol/L Potassium (3.3-5.1) mmol/L Chloride (96-108) mmol/L Carbon Dioxide (22-29) mmol/L Anion Gap (12-20) BUN (9-16) mg/dL Creatinine (0.5-1.4) mg/dL Estim Creat Clear Calc Estimated GFR Random Glucose (60-115) mg/dL Lactic Acid 0.7 (0.5-2.0) mmol/L Calcium (8.4-10.2) mg/dL Magnesium (1.6-2.6) mg/dL Total Bilirubin (0.0-1.0) mg/dL Direct Bilirubin (0.0-0.5) mg/dL AST (5-31) U/L ALT (0-31) U/L Alkaline Phosphatase (39-117) U/L Total Protein (6.5-8.0) g/dL Albumin (3.5-5.0) g/dL Urine Color Yellow Urine Appearance Clear Urine pH 7.0 (5.0-9.0) Ur Specific [place] >= 1.030 H (1.005-1.025) Urine Protein Trace (Neg-Trace) mg/dL Urine Glucose (UA) Negative (Negative) mg/dL Urine Ketones Negative (Negative) mg/dL Urine Blood Small (1+) H (Negative) Urine Nitrite Negative (Negative) Ur Leukocyte Esterase Negative (Negative) Urine RBC 6-10 H (0-2) /HPF Urine WBC 0-5 (0-5) /HPF Ur Squamous Epith Cells 0-2 (0-2) /HPF Urine Bacteria None Seen (None Seen) Hyaline Casts 0-2 (0-2) /LPF COVID-19 (ZAIRE) (Negative) COVID-19 Clin Com <Bear Marshall - Last Filed: 01/25/23 23:05> Discharge Plan Discharge Clinical Impression: Intra-abdominal abscess <LILIAM Aguiar - Last Filed: 01/25/23 13:58> Patient Disposition: Home, Self-Care <LILIAM Aguiar - Last Filed: 01/25/23 13:58> Instructions: Abscess (ED) <LILIAM Aguiar - Last Filed: 01/25/23 13:58> Additional Instructions: take your amoxicillin tomorrow morning, you do not need to take it right now as you were given a dose of IV antibiotics in the hospital. you should go directly to [facility] where your surgical follow-up care was as soon as possible, as you declined consideration for transfer tonight. <LILIAM Aguiar - Last Filed: 01/25/23 13:58> Prescriptions: No Action folic acid 1 mg tablet 1 mg PO DAILY 90 Days Qty: 90 3RF (DME) lancets [FreeStyle Lancets] 28 gauge misc See Rx Instructions .ROUTE .MEDSUPPLY Qty: 100 11RF Rx Instructions: Use 1 lancet once a day metoprolol succinate 25 mg tablet extended release 24 hr 25 mg PO DAILY 90 Days Qty: 90 1RF pravastatin 20 mg tablet 20 mg PO BEDTIME 90 Days Qty: 90 3RF omeprazole 20 mg capsule,delayed release(DR/EC) 20 mg PO DAILY 90 Days Qty: 90 5RF cholecalciferol (vitamin D3) 25 mcg (1,000 unit) capsule 25 mcg PO DAILY 90 Days Qty: 90 1RF alcohol swabs [Alcohol Prep Pads] Pads, Medicated 1 pad topical TID 30 Days Qty: 100 6RF (DME) FreeStyle Lite Strips Strip See Rx Instructions .ROUTE .MEDSUPPLY Qty: 50 11RF Rx Instructions: to test 2 to 3 times a day as directed phenazopyridine [Pyridium] 200 mg tablet 200 mg PO .bidprn Qty: 20 0RF Rx Instructions: take with food (DME) blood-glucose meter [FreeStyle Lite Meter] Kit See Rx Instructions .Route Qty: 1 0RF Rx Instructions: As directed (DME) Stick and Play Luer Lock Syr-needle 3 mL 22 gauge x 1 syringe See Rx Instructions .Route Qty: 1 1RF Rx Instructions: As directed mecobalamin (vitamin B12) 10,000 mcg recon soln 1,000 mcg IM .once a month 30 Days Qty: 1 6RF acetaminophen 500 mg capsule 500 mg PO QID PRN (Reason: pain) 10 Days Qty: 30 0RF ondansetron HCl 4 mg tablet 4 mg PO Q8H PRN (Reason: nausea and vomiting) 7 Days Qty: 14 0RF albuterol sulfate 90 mcg/actuation HFA aerosol inhaler 2 puff inhalation Q6H PRN (Reason: Shortness Of Breath Or Wheezing) (DME) lancets [Pure Comfort Safety Lancets] 30 gauge misc See Rx Instructions .ROUTE DAILY Qty: 100 Rx Instructions: As directed calcium citrate 250 mg calcium tablet 500 mg PO BID acetaminophen 500 mg capsule 500 mg PO Q6H PRN (Reason: Pain) epinephrine 0.3 mg/0.3 mL auto-injector IM hydroxyzine pamoate [Vistaril] 25 mg capsule 25 mg PO BEDTIME Qty: 60 0RF <LILIAM Aguiar - Last Filed: 01/25/23 13:58>
--- NOTE | 2023-01-25 14:02 | MHC.EDTECH ---
Labs and covid swab collected and sent
--- NOTE | 2023-01-25 14:02 | MHC.EDTECH ---
[email or web address] called [facility] to request medical records. The individual on the phone took the fax number and stated she would send them over as soon as possible.
[2023-01-25 14:05] LABS: MANUAL DIFF FLAG NO
[2023-01-25 14:09] LABS: Basophils Percent Auto 0.2 % (0-2); Eosinophils Absolute Auto 0.1 X10*3/uL (0.0-0.4); Hematocrit 26.9 % (37.0-47.0); Imm Gran Pct Auto 3.9 % (0.0-0.4); Lymphocytes Absolute Auto 1.4 X10*3/uL (1.2-4.9); Lymphocytes Percent Auto 13.6 % (20-40); Mean Corpuscular HGB Conc 33.5 g/dl (31.0-35.0); Mean Corpuscular Hemoglobin 28.6 pg (27.0-33.0); Mean Corpuscular Volume 85.4 fL (80.0-98.0); Mean Platelet Volume 9.2 fL (9.4-12.3); Monocytes Absolute Auto 0.7 X10*3/uL (0.1-1.2); Monocytes Percent Auto 6.5 % (2-11); Neutrophils Absolute Auto 7.8 x10*3/uL (2.0-8.3); Neutrophils Percent Auto 74.8 % (45-73); Platelet Count 460 X10*3/uL (160-400); Red Blood Count 3.15 X10*6/uL (4.20-5.50); Red Cell Distribution Width 14.3 % (11.0-16.0); White Blood Count 10.4 X10*3/uL (4.8-10.8)
[2023-01-25 14:18] LABS: COVID-19 Test Negative (Negative); IDNOW Serial# BCCEAD1C
--- NOTE | 2023-01-25 14:59 | MHC.EDTECH ---
lactic sent to lab
[2023-01-25 15:12] LABS: Lactic Acid 0.7 mmol/L (0.5-2.0)
[2023-01-25 16:21] LABS: Alanine Aminotransferase 20 U/L (0-31); Alkaline Phosphatase 162 U/L (39-117); Anion Gap 18 (12-20); Aspartate Amino Transferase 26 U/L (5-31); Bilirubin Direct 0.2 mg/dL (0.0-0.5); Bilirubin Total 0.5 mg/dL (0.0-1.0); Blood Urea Nitrogen 8 mg/dL (9-16); Calcium 8.8 mg/dL (8.4-10.2); Carbon Dioxide 19 mmol/L (22-29); Chloride 103 mmol/L (96-108); Creatinine Clr Calc Pharmacy 90.5; Estimated Glomerular Filt Rate > 60; Glucose Random 104 mg/dL (60-115); Magnesium 1.6 mg/dL (1.6-2.6); Potassium 3.8 mmol/L (3.3-5.1); Sodium 136 mmol/L (135-145); Total Protein 6.1 g/dL (6.5-8.0)
[2023-01-25] MEDS: iohexoL 350 MG/ML 100 ML INFUS..BTL IV (16:56)
[2023-01-25 19:47] VITALS: BP 104/64; PULSE 90; RESP 16; TEMP 37.4; O2SAT 98
--- NOTE | 2023-01-25 19:47 | MHC.EDTECH ---
pt was called back to triage to collect urine sample and draw 1 st set and 2nd sets of blood culture ,vitals sign was re check .
[2023-01-25 19:59] LABS: Appearance Urine Clear; Color Urine Yellow; Glucose Urine UA Negative (Negative); Leukocyte Esterase Urine Negative (Negative); Nitrite Urine Negative (Negative); Specific Gravity - Urine >= 1.030 (1.005-1.025); UMIC TRIGGER UACC YES; Urine Blood Small (1+) (Negative); Urine Ketones Negative (Negative); Urine Protein Trace mg/dL (Neg-Trace)
[2023-01-25 20:09] LABS: Bacteria Urine None Seen (None Seen); Hyaline Casts Urine 0-2 /LPF (0-2); Squamous Epithelial Cell Urine 0-2 /HPF (0-2); WBC Urine 0-5 /HPF (0-5)
[2023-01-25] MEDS: Piperacillin Sodium/Tazobactam 3.375 GM in 0.9 % Sodium Chloride 50 ML IV (22:59)
[2023-01-25 23:11] VITALS: BP 126/80; PULSE 72; RESP 16; TEMP 36.7; O2SAT 98
--- NOTE | 2023-01-25 23:12 | MHC.EDTECH ---
this pct assumed care of patient at 2300 ,pt vitals sign taken pt waiting for discharged paper work .
== END 2023-01-26 00:55 | disposition home or self-care (01) ==
PROVIDERS: Physician Assistant; Emergency Provider Internal Medicine; PCP Internal Medicine
DX: L02.211 Cutaneous abscess of abdominal wall (principal); I10 Essential (primary) hypertension; E78.5 Hyperlipidemia, unspecified; D50.9 Iron deficiency anemia, unspecified; E66.9 Obesity, unspecified; Z68.29 Body mass index [BMI] 29.0-29.9, adult
CPT/HCPCS: 36415; 71046; 74177; 80048; 80076; 81001; 81003; 83605; 83735; 85025; 87040; 87635; 96374; 99283; 99284; J2543; Q9967

== ENCOUNTER → 2023-02-07 13:23 | Outpatient (BNVA) | payer OTHER, SELFPAY | PROVIDERS: PCP Internal Medicine; Visit Provider Urology | DX: N30.10 Interstitial cystitis (chronic) without hematuria (principal) | CPT/HCPCS: 51700; 51701 ==

== ENCOUNTER → 2023-02-14 13:11 | Outpatient (REF) | payer OTHER, SELFPAY ==
--- NOTE | 2023-02-14 13:15 | HM_ITS ---
* Total monitoring time 2 days. * Underlying rhythm is sinus. Average ventricular rate 64/Min. Range 48 to 94/Min. * Occasional ventricular ectopy. Manito of 1.6%. No significant runs. * Occasional supraventricular ectopy. Manito of 0.5%. * No sustained arrhythmias. * No significant pauses or AV blocks. * No patient markers or events in diary. MTDD
--- NOTE | 2023-02-14 13:16 | CA_ITS ---
Transthoracic Echocardiogram Patient (Last, First, Middle): Maura Travis m Gender: Female Date of : 1960 Age: 62 Procedure Date: 02/14/2023 Procedure Type: Transthoracic Echocardiogram Location: OP Height: 152.4 cm Weight: 68.04 kg BSA: 1.65 m2 Heart Rate: bpm BP: 120 / 68 mmHg Organ Pipe Voicer: CHA Referring MD: Roby Handy MD Symptoms: I49.3 - Ventricular premature depolarization Study Quality: Adequate ECG Rhythm: Sinus Conclusions: - The left ventricular systolic function is normal. The calculated ejection fraction is 63% by biplane method. - There is mild calcification of the aortic valve. - The left atrium is severely dilated. - Mild pulmonary hypertension is present. - There is mild dilatation of the ascending aorta measuring 4.10 cm. Findings Left Ventricle Normal left ventricular cavity size. There is mildly increased left ventricular wall thickness. The left ventricular systolic function is normal. The calculated ejection fraction is 63% by biplane method. There is no evidence of regional wall motion abnormalities. E/E prime ratio is between 8 and 15 consistent with indeterminate filling pressures. Evidence suggests grade I (mild) diastolic dysfunction. Right Ventricle Normal right ventricular cavity size and systolic function. Atria The left atrium is severely dilated. The right atrium is normal in size. Aortic Valve There is a normal trileaflet aortic valve. There is mild calcification of the aortic valve. There is no aortic valve stenosis. There is trace (trivial) aortic valve regurgitation. Mitral Valve The mitral valve appears normal. There is mild mitral annular calcification. There is trace mitral valve regurgitation. There is no mitral valve stenosis. Pulmonic Valve The pulmonic valve is likely normal. Tricuspid Valve There is mild tricuspid valve regurgitation. Mild pulmonary hypertension is present. Great Vessels There is mild dilatation of the ascending aorta measuring 4.10 cm. Small plaque is seen in the sino tubular ridge. Venous The inferior vena cava is mildly dilated and collapses greater than 50% with inspiration. Pericardium/Pleural There is no evidence of pericardial effusion. Prior Study Comparison Changes noted compared to prior study dated: 06/09/2014. Increase in atrial size; RVSP; ascending aortic size. Measurements 2D Linear Measurements IVSd: 1.27 0.6-0.9/0.6-1.0 cm LVIDd: 4.43 3.9-5.3/4.2-5.9 cm LVIDd Index: 2.68 2.4-3.2/2.2-3.1 cm/m2 LVIDs: 3.04 2.0-3.6 cm LVPWd: 1.19 0.7-1.1 cm LA Diam: 3.70 2.7-3.8/3.0-4.0 cm LAIDs Index: 2.24 1.5-2.3 cm/m2 LV Mass: 249.75 67-162/88-224 g LV Mass Index: 151.36 43-95/49-115 g/m2 LVOT Diam: 2.10 3.0+(-)1.3 cm 2D Systolic Function EF 4C: 67.30 >55% EF 2C: 59.80 >55% EF BiP: 63.20 >55% Mitral Valve MV Pk E: 0.80 MV PK A: 0.86 MV Decel Time: 296.00 E/A: 0.90 E'Lateral: 9.90 E'Medial: 6.09 E/E' Med: 13.20 E/E' Lat: 8.10 PHT: 87.00 MVA PHT: 2.53 Decel [place]: 2.71 Aortic Valve AoV Pk Adam: 1.71 AoV Mn Adam: 1.17 AoV VTI: 0.39 AoV Pk Grad: 12.00 Aov Mn Grad: 6.00 MATTHEW Cont.VTI: 1.94 LVOT LVOT Pk Adam: 0.88 LVOT Mn Adam: 0.60 LVOT VTI: 0.22 LVOT Pk Grad: 3.00 LVOT Mn Grad: 2.00 LVOT Diam: 2.10 LVOT Area: 3.46 Diastolic Function MV Pk E: 0.80 MV Pk A: 0.86 E/A: 0.90 E'Medial: 6.09 E/E' Med: 13.20 E' Laterial: 9.90 E/E' Lat: 8.10 Right Ventricle TAPSE (mm): 20.30 TVS' Adam: 11.30 Tricuspid Valve TR Pk Adam: 2.46 TR Pk Grad: 24.00 RA Press: 15.00 RVSP: 39.00 Great Vessels Aorta Sinus of Valsalva: 3.46 2.0-3.[address] [place]: 2.71 1.7-3.4 cm Ao Asc: 4.10 2.1-3.4 cm Ao Arch: 3.50 Updated in Other Vendor System with Status of Final Aaron Tamez MD electronically signed on 02/15/2023 11:34:58 AM with status of Final
== END ==
LOC: HO.CARD 13:11
PROVIDERS: PCP Internal Medicine; Visit Provider Internal Medicine Cardiovascular Disease
DX: I49.3 Ventricular premature depolarization (principal)
CPT/HCPCS: 93225; 93306

== ENCOUNTER → 2023-02-26 13:33 | Outpatient (BNVA) | payer OTHER, SELFPAY | PROVIDERS: PCP Internal Medicine; Visit Provider Urology | DX: N30.10 Interstitial cystitis (chronic) without hematuria (principal) | CPT/HCPCS: 51700; 51701; J1643; J2920 ==

== ENCOUNTER 2023-03-15 09:48 | Outpatient (REF) | payer OTHER, SELFPAY ==
[2023-03-15 11:53] LABS: Cholesterol 206 mg/dL; HDL Cholesterol 50 mg/dL; LDL Cholesterol Calculated 137 mg/dl; Triglycerides 96 mg/dL
[2023-03-15 12:12] LABS: Folate 6.9 ng/mL (> or = 4.0); Vitamin B12 763 pg/mL (200-900)
== END 2023-03-15 09:49 | disposition home or self-care (01) ==
LOC: HO.LAB 09:48
PROVIDERS: PCP Internal Medicine; Visit Provider Internal Medicine
DX: E78.5 Hyperlipidemia, unspecified (principal); E53.8 Deficiency of other specified B group vitamins; D64.9 Anemia, unspecified
CPT/HCPCS: 36415; 80061; 82607; 82746

== ENCOUNTER 2023-03-15 10:22 | Outpatient (REF) | payer OTHER, SELFPAY ==
[2023-03-22 05:28] LABS: N-Telopeptide 61 (see note); NTXCreaRU 77 mg/dL (20-275)
== END 2023-03-15 10:23 | disposition home or self-care (01) ==
LOC: HO.10HDL 10:22
PROVIDERS: Visit Provider Internal Medicine Endocrinology, Diabetes & Metabolism
DX: M81.0 Age-related osteoporosis without current pathological fracture (principal); D64.9 Anemia, unspecified; E53.8 Deficiency of other specified B group vitamins; E78.5 Hyperlipidemia, unspecified
CPT/HCPCS: 82523

== ENCOUNTER → 2023-03-19 09:37 | Outpatient (BNVA) | payer OTHER, SELFPAY | PROVIDERS: PCP Internal Medicine; Visit Provider Urology | DX: N30.10 Interstitial cystitis (chronic) without hematuria (principal) | CPT/HCPCS: 51700; 51701; J1643; J2920 ==

== ENCOUNTER → 2023-03-25 10:10 | Outpatient (BNVA) | payer OTHER, SELFPAY | PROVIDERS: PCP Internal Medicine; Visit Provider Nurse Practitioner Family | DX: N30.11 Interstitial cystitis (chronic) with hematuria (principal); R39.89 Other symptoms and signs involving the genitourinary system; N39.0 Urinary tract infection, site not specified; M47.26 Other spondylosis with radiculopathy, lumbar region; M51.36 Other intervertebral disc degeneration, lumbar region; M81.0 Age-related osteoporosis without current pathological fracture | CPT/HCPCS: 99202; 99212 ==

== ENCOUNTER 2023-03-28 10:24 | Outpatient (REF) | payer OTHER, SELFPAY ==
--- NOTE | ~2023-03-28 | US_ITS ---
EXAMINATION: US THYROID CLINICAL INFORMATION: Multinodular goiter. COMPARISON: Ultrasound thyroid 01/14/2023 and 09/14/2021. TECHNIQUE: Linear transducer grayscale and color Doppler examination with attention to the region of the thyroid. FINDINGS: SIZE: Measurements of the solitary right thyroid lobe and nodules are given in sagittal, anteroposterior and transverse dimensions respectively. Right Thyroid Lobe: 4.0 x 1.1 x 1.6 cm, volume 3.9 mL. Previously 3.9 x 1.2 x 1.9 cm, volume 4.7 mL. Parenchyma: The gland echotexture is homogeneous. Thyroid vascularity is normal. Left Thyroid Lobe: Surgically absent. Isthmus: 0.3 cm in maximum AP dimension. Previously 0.3 cm. NODULES: No focal thyroid nodule is seen. NODES: No lymphadenopathy is seen in the tissue surrounding the thyroid gland. US/US thyroid IMPRESSION: 1. Normal-sized right thyroid lobe which demonstrates homogeneous echotexture and normal vascularity. No discrete thyroid nodules visualized. 2. Patient is status post left thyroidectomy.
--- NOTE | ~2023-03-28 | US_ITS ---
EXAMINATION: US ABDOMEN COMPLETE CLINICAL INFORMATION: Abdominal pain. COMPARISON: CT abdomen and pelvis 01/25/2023. Ultrasound abdomen complete 12/07/2022. X-ray abdomen KUB 08/14/2022. Renal ultrasound 12/26/2016. TECHNIQUE: Real-time imaging of the abdominal viscera. Technically difficult study secondary to bowel gas and body habitus. FINDINGS: PANCREAS: Visualized portions of pancreas are normal in appearance. ABDOMINAL AORTA: The proximal, mid, and distal segments are normal in caliber. INFERIOR VENA CAVA: Visualized portions are normal. LIVER: The liver is normal in size. The liver contour is normal. Parenchymal echogenicity is normal. There is a 1.7 cm coarse calcification within the right hepatic lobe. There is no intrahepatic biliary duct dilatation seen. GALLBLADDER: Surgically absent. COMMON BILE DUCT: Normal in caliber measuring 0.5 cm in diameter. RIGHT KIDNEY: Normal. No hydronephrosis. No renal calculi or focal parenchymal lesions. The kidney measures 10.4 cm in maximum dimension. LEFT KIDNEY: Normal. No hydronephrosis. No renal calculi or focal parenchymal lesions. The kidney measures 10.5 cm in maximum dimension. SPLEEN: Normal. The spleen measures 8.9 cm in maximum dimension. FREE FLUID: None. US/US abdomen complete IMPRESSION: Coarse calcification within the right hepatic lobe. Otherwise unremarkable sonographic imaging of the abdomen.
== END 2023-03-28 10:25 | disposition home or self-care (01) ==
LOC: HO.US 10:24
PROVIDERS: PCP Internal Medicine; Visit Provider Internal Medicine Endocrinology, Diabetes & Metabolism
DX: E04.2 Nontoxic multinodular goiter (principal)
CPT/HCPCS: 76536; 76700

== ENCOUNTER → 2023-04-04 10:35 | Outpatient (BNVA) | payer OTHER, SELFPAY | PROVIDERS: PCP Internal Medicine; Visit Provider Urology | DX: N30.10 Interstitial cystitis (chronic) without hematuria (principal) | CPT/HCPCS: 51700; 51701; J1643; J2920 ==

== ENCOUNTER → 2023-04-12 10:52 | Outpatient (BNVA) | payer OTHER, SELFPAY | PROVIDERS: PCP Internal Medicine; Visit Provider Urology | DX: N30.10 Interstitial cystitis (chronic) without hematuria (principal) | CPT/HCPCS: 51700; 51701 ==

== ENCOUNTER → 2023-04-18 10:18 | Outpatient (BNVA) | payer OTHER, SELFPAY | PROVIDERS: PCP Internal Medicine; Visit Provider Urology | DX: N30.10 Interstitial cystitis (chronic) without hematuria (principal); I49.3 Ventricular premature depolarization; I77.810 Thoracic aortic ectasia; I10 Essential (primary) hypertension | CPT/HCPCS: 51700; 51701; 99212; J1643; J2920 ==

== ENCOUNTER → 2023-04-25 11:01 | Outpatient (BNVA) | payer OTHER, SELFPAY | PROVIDERS: PCP Internal Medicine; Visit Provider Urology | DX: N30.10 Interstitial cystitis (chronic) without hematuria (principal) | CPT/HCPCS: 51700; 51701; J1643; J2920 ==

== ENCOUNTER 2023-05-07 08:16 | Outpatient (REF) | payer OTHER, SELFPAY ==
--- NOTE | ~2023-05-07 | MR_ITS ---
EXAMINATION: MR LUMBAR SPINE WITHOUT AND WITH CONTRAST CLINICAL INFORMATION: Osteoporosis. Concern for discitis. COMPARISON: CT abdomen and pelvis 01/25/2023. TECHNIQUE: Multiplanar MR imaging of the lumbar spine was performed without and with contrast. A total of 6 mL Gadavist was utilized for this examination. FINDINGS: Alignment is normal. Vertebral body heights are preserved. No acute bone marrow signal changes. There is disc desiccation at multiple levels without substantial loss of intervertebral disc height. The tip of the conus medullaris is located at and T12-L1. No mass effect on the conus. Visualized distal cord signal intensity is normal. At T12-L1 the annular contour is normal. No canal or neuroforaminal compromise. At L1-L2 the annular contour is normal.. No canal stenosis. No mass effect on the traversing or foraminal nerve roots. At L2-L3 there is a bulging disc. Bilateral facet degenerative change. Mild canal stenosis. No mass effect on the traversing or foraminal nerve roots. At L3-L4 there is a slightly bulging disc. Bilateral facet degenerative change. No canal stenosis. No mass effect on the traversing or foraminal nerve roots. At L4-L5. There is a tiny central annular fissure associated with a slightly bulging disc. Bilateral facet degenerative change. No canal stenosis. No mass effect on the traversing or foraminal nerve roots. At L5-S1 there is a shallow central protrusion. No canal stenosis. No mass effect on the traversing or foraminal nerve roots. Limited visualization of the retroperitoneal anatomy reveals no abnormal finding. Psoas and paraspinal muscle groups are symmetric. MR/MR lumbar spine wo/w con IMPRESSION: There is disc degeneration at multiple levels within the lumbar spine. Mild canal stenosis at L2-L3. Otherwise no canal compromise. No mass effect on the traversing or foraminal nerve roots.
== END 2023-05-07 08:17 | disposition home or self-care (01) ==
LOC: HO.MRI 08:16
PROVIDERS: PCP Internal Medicine; Visit Provider Nurse Practitioner Family
DX: M81.0 Age-related osteoporosis without current pathological fracture (principal); M54.16 Radiculopathy, lumbar region; M51.36 Other intervertebral disc degeneration, lumbar region
CPT/HCPCS: 72158; A9585

== ENCOUNTER → 2023-05-09 10:39 | Outpatient (BNVA) | payer OTHER, SELFPAY | PROVIDERS: PCP Internal Medicine; Visit Provider Urology | DX: N30.10 Interstitial cystitis (chronic) without hematuria (principal) | CPT/HCPCS: 51700; 51701; J1643; J2920 ==

== ENCOUNTER → 2023-05-16 10:01 | Outpatient (BNVA) | payer OTHER, SELFPAY | PROVIDERS: PCP Internal Medicine; Visit Provider Nurse Practitioner Family | DX: M25.552 Pain in left hip (principal); M47.816 Spondylosis without myelopathy or radiculopathy, lumbar region; M51.36 Other intervertebral disc degeneration, lumbar region; M54.16 Radiculopathy, lumbar region; R10.31 Right lower quadrant pain; M81.0 Age-related osteoporosis without current pathological fracture; G89.4 Chronic pain syndrome | CPT/HCPCS: 99212 ==

== ENCOUNTER → 2023-05-17 10:05 | Outpatient (BNVA) | payer OTHER, SELFPAY | PROVIDERS: Visit Provider Urology | DX: N30.10 Interstitial cystitis (chronic) without hematuria (principal) | CPT/HCPCS: 51700; 51701; J1643; J2920 ==

== ENCOUNTER 2023-07-10 10:09 | Outpatient (AMB) | payer OTHER, SELFPAY ==
--- NOTE | 2023-07-10 05:38 | A.OFFVIS_ITS ---
Intake Intake Visit Reasons: bladder pain Intake Note: Patient presents today for a follow-up on Bladder Pain: Meds- Vagifem & Pyridium Allergies to Antibiotic- No Known Allergies Blood Thinner- None PVR- 0ml Kindergartners Helper Required: No Accompanied by: Self / Same As Patient Allergies phentermine Allergy (Intermediate, Verified 08/02/23 09:00) Palpitations HPI HPI Comments History of Present Illness Details Maura is a 62-year-old female who presents today to the office for an evaluation of bladder pain. 07/10/2023? Maura is followed today for bladder pain. She was last seen by me on 03/25/2023 for bladder pain. Discussed weekly bladder installations for 4 weeks, then every 2 weeks and Vagifem suppository twice a week was ordered at that time. She has a history of diabetes and gastric bypass. She had noted improvement with the bladder instillations. She has not had a bladder instillation since 05/17/2023 and is complaining that the bladder pressure pain is back. She states that the hydroxyzine did not help her and seem to cause more burning with urination. Review of charts: Last visit: 03/25/2023? The patient is Ivorian speaking female. Certified Ivorian speaking loss control technician was present during the visit. LV--12/06/22-- seen in the office for recurrent UTIs. Comorbidity diabetes. h/o Gastric bypass prior cardiology for evaluation for tachycardia.? also states she needed to have a breast biopsy done s/p cystoscopy hydrodistension- findings bladder capacity 700 mL, no glomerulations visualized previous pelvic exam, point bladder tenderness--treated with Vistaril 25 mg qhs.? and Bladder instillations weekly for 6 weeks, then maintenance q month The patient is undergoing bladder installations. Complains having pain in the pelvic region, but mentions benefits with weekly installations as compared to monthly. The patient was prescribed with Vistrail 25 mg QD and is not sure is she is taking it.? Denies breast cancer family history in sisters and mother. Imagin05/17/22--CT ABDOMEN AND PELVIS WITH CONT RAST-- kidneys wnl, no renal calculi?? Plan: The patient will call the office to let us know if she is taking Vistrail 25 mg QD pending which Vistrail 50 mg will be ordered. Weekly bladder installations for 4 weeks, then every 2 weeks. Vagifem suppository twice a? week was ordered. 07/10/2023: Evaluation today?UA? blood:1 +; leukocytes: trace: bladder scan PVR: 0 mL. 07/10/2023: Plan: Bladder instillation today and we will continue weekly bladder instillations with the nurse, and follow up with me in 3 months. 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 Asthma Paget's disease Fibromyalgia Nontoxic multinodular goiter Osteoarthritis HTN (hypertension) Surgical History History of removal of laparoscopic gastric banding device History of cystoscopy History of lobectomy of thyroid Mass of right parotid gland H/O laparoscopic adjustable gastric banding Hx of lithotripsy History of dilation and curettage History of delivery Hx of tonsillectomy Hx of gastric bypass Family History Mother Diabetes HTN (hypertension) Father Pancreatic cancer Diabetes HTN (hypertension) Maternal Grandmother Myocardial infarction Cancer Brother Pancreatic cancer Sister Uterine cancer Other Mental health disorder Social History Household Members: Family Housing: House Are you a primary hiv/aids care nurse to a significant other at home: No Do you presently have visiting nurse or other home services: No Alcohol intake: never Patient Tobacco Use Status: Former Tobacco user Tobacco use type: Cigarette e-Cigarette/Vaping Use: Never Used Second Hand Smoke Exposure: No service: No Current occupational status: unemployed and disabled Sexual orientation: Straight/Heterosexual Gender identity: Female Cognitive needs: No Hearing needs: No Vision needs: Yes (glasses) Female Reproductive History Menstrual Age of Menarche: 10 Review of Systems Const All systems reviewed & are unremarkable except as noted in HPI and below Reports no additional complaints Eyes Reports no additional complaints ENT Reports no additional complaints Card Denies dyspnea Resp Denies cough and Denies dyspnea GI Reports no additional complaints Reports no additional complaints Musc Reports no additional complaints Skin/Breast Denies rash and Denies unusual bruising Neuro Reports no additional complaints Psych Reports no additional complaints Endo Reports no additional complaints Moses/Lymph Reports no additional complaints Aller/Immun Reports no additional complaints Physical Exam Const General: cooperative and no acute distress Orientation/consciousness: patient oriented x3 HEENT Head: Yes normal to inspection, Yes normocephalic and Yes atraumatic Eyes Conjunctivae: conjunctivae normal Neck Neck: Yes normal visual inspection and Yes trachea midline Chest Chest palpation & inspection: normal inspection of the chest Resp Effort & Inspection: normal respiratory effort GI Inspection: Yes normal to inspection Neuro General: patient oriented x3 Psych Appearance: grossly normal Office Procedures Bladder/Catheter Procedure Details: per Dr Sheth pt to have weekly instillations again until symptoms subside then monthly. first 2 weekly instillations using increased dose of heparin- 12 fr straight cath used to instill: 30,000 units (6 mls) heparin 10 mls lidocaine 10 mls bupivicaine 10 mls lidocaine urojet 1 ml solumedrol (40 mg) 74225-Gdesurzvvd of Bladder 74487-Yeanot Bladder Catheter Procedure code (CPT) selection complete Post Void Residual Post Residual Void Post Void Residual (PVR): 0 49132-Oajp Void Residual by ultrasound Results AMB Urinalysis, Automated UA Leukoctes 15 Denilson/uL Last Edit by RHEA Gould on 07/10/23 10:41 UA Nitrite Negative Last Edit by RHEA Gould on 07/10/23 10:41 UA Urobilinogen 0 mg/dL Last Edit by RHEA Gould on 07/10/23 10:41 UA Protein 0.2 mg/dL Last Edit by RHEA Gould on 07/10/23 10:41 UA pH 6.0 Last Edit by RHEA Gould on 07/10/23 10:41 UA Blood 25 Brady/uL Last Edit by RHEA Gould on 07/10/23 10:41 1+ Gabino Ayala 07/10/23 10:41 UA Specific [place] 1.025 Last Edit by Gabino Ayala RMA on 07/10/23 10: 41 UA Ketone Negative Last Edit by Gabino Ayala, RMA on 07/10/23 10:41 UA Bilirubin 0 mg/dL Last Edit by Gabino Ayala RMA on 07/10/23 10:41 UA Glucose 0 mg/dL Last Edit by Gabino Ayala, A on 07/10/23 10:41 Results Reviewed Results Reviewed: Laboratory Last Values Urine pH (Auto) 6.0 07/10/23 10:18 Specific [place] (Auto) 1.025 07/10/23 10:18 Urine Protein (Auto) 0.2 mg/dL 07/10/23 10:18 Glucose (UA)(Auto) 0 mg/dL 07/10/23 10:18 Urine Ketones (Auto) Negative 07/10/23 10:18 Urine Blood (Auto) 25 Brady/uL 07/10/23 10:18 Urine Nitrite (Auto) Negative 07/10/23 10:18 Urine Bilirubin (Auto) 0 mg/dL 07/10/23 10:18 Urine Urobilinogen (Auto) 0 mg/dL 07/10/23 10:18 Leukocyte Esterase (Auto) 15 Denilson/uL 07/10/23 10:18 Assessment & Plan Assessment & Plan (1) Microscopic hematuria: Code(s): R31.29 - Other microscopic hematuria Plan: Bladder instillations today and we will continue weekly bladder instillations with the nurse, and follow up with me in 3 months. (2) Frequent UTI: Code(s): N39.0 - Urinary tract infection, site not specified (3) Interstitial cystitis: Code(s): N30.10 - Interstitial cystitis (chronic) without hematuria (4) Bladder pain: Code(s): R39.89 - Other symptoms and signs involving the genitourinary system Orders: Orders AMB Urinalysis Automated 07/10/23 Z13.9 - Encounter for screening, unspecified AMB Post Void Residual by ultrasound 07/10/23 N39.8 - Other specified disorders of urinary system AMB Bladder/Catheter Procedure 07/10/23 N30.10 - Interstitial cystitis (chronic) without hematuria, R39.89 - Other symptoms and signs involving the genitourinary system Patient Instructions: The patient had an opportunity to ask questions regarding treatment plan. All questions were answered. Imaging, Laboratory studies and physical exam results were discussed and reviewed in detail. No major barriers to understanding were identified. The patient expressed understanding and agreement with the above treatment plan.? ? ? The patient is aware they should contact our office by phone for worsening of their current condition or the appearance of new symptoms. Compliance is encouraged with any medications and followup testing that is ordered.? ? ? It is a privilege to be allowed the opportunity to participate in the urologic care of your patient. If you have any questions or concerns regarding treatment for the above conditions please do not hesitate to contact me. The office telephone contact is [phone].? ? ? This note is constructed in part using voice recognition software. While every effort has been made to ensure accuracy sas clinical programmer errors may have been included.? ? ? Yours sincerely,? ? ? Saige Henning MD? ? Coding Level of Care Code Est Pt Level 3 (87066) Diagnoses Microscopic hematuria R31.29 Frequent UTI N39.0 Interstitial cystitis N30.10 Bladder pain R39.89 CPT Codes Bladder/Catheter Procedure - CPT: 33624-Izqunbctuv of Bladder ([id number]) Bladder/Catheter Procedure - CPT: 61722-Mskwtu Bladder Catheter ([id number]) Post Residual Void - PVR CPT Code: 47962-Wtuq Void Residual by ultrasound ([id number])
== END 2023-07-10 11:32 | disposition home or self-care (01) ==
PROVIDERS: PCP Internal Medicine; Visit Provider Urology
DX: N30.11 Interstitial cystitis (chronic) with hematuria (principal); R39.89 Other symptoms and signs involving the genitourinary system; N39.0 Urinary tract infection, site not specified; R31.29 Other microscopic hematuria
CPT/HCPCS: 51700; 99213

== ENCOUNTER → 2023-07-10 10:09 | Outpatient (BNVA) | payer OTHER, SELFPAY | PROVIDERS: PCP Internal Medicine; Visit Provider Urology | DX: N30.11 Interstitial cystitis (chronic) with hematuria (principal); R39.89 Other symptoms and signs involving the genitourinary system | CPT/HCPCS: 51700; 51798; 81003; 99212; J1643; J2920 ==

== ENCOUNTER → 2023-07-17 10:02 | Outpatient (BNVA) | payer OTHER, SELFPAY | PROVIDERS: PCP Internal Medicine; Visit Provider Urology | DX: N30.10 Interstitial cystitis (chronic) without hematuria (principal) | CPT/HCPCS: 51700; 51701; J1643; J2920 ==

== ENCOUNTER → 2023-07-24 09:52 | Outpatient (BNVA) | payer OTHER, SELFPAY | PROVIDERS: PCP Internal Medicine; Visit Provider Urology | DX: N30.10 Interstitial cystitis (chronic) without hematuria (principal) | CPT/HCPCS: 51700; 51701; J1643; J2920 ==

== ENCOUNTER 2023-07-25 09:30 | Outpatient (AMB) | payer OTHER, SELFPAY ==
--- NOTE | 2023-07-25 09:33 | MHC.OFFVIS ---
Intake Vital Signs 07/25/23 09:36 Height 5 ft 1 in Weight 152 lb BMI 28.7 BP 130/78 Blood Pressure Location Rt brachial Position Sitting Pulse 62 Intake Visit Reasons: Right breast lump, re-discuss surgery Intake Note: Patient here for Rt breast lump. C/o pain at site X4-5m. Would like to have it surgically excised. Airline Operations Agent Required: No Accompanied by: Self / Same As Patient Allergies phentermine Allergy (Intermediate, Verified 07/25/23 09:39) Palpitations Medication List - Last Reconciled 07/25/23 by Florencio Wells MD acetaminophen 500 mg PO QID PRN 10 days albuterol sulfate 90 mcg/actuation 2 puffs inhalation Q6H PRN alcohol swabs (Alcohol Prep Pads) 1 pad topical TID 30 days blood sugar diagnostic (FreeStyle Lite Strips) to test 2 to 3 times a day as directed blood-glucose meter (FreeStyle Lite Meter kit) As directed calcium citrate 500 mg PO BID cholecalciferol (vitamin D3) 25 mcg PO DAILY 90 days epinephrine IM folic acid 1 mg PO DAILY 90 days lancets (FreeStyle Lancets) Use 1 lancet once a day lancets (Pure Comfort Safety Lancets) As directed metoprolol succinate ER 25 mg PO DAILY 90 days omeprazole 20 mg PO DAILY 90 days pravastatin 20 mg PO BEDTIME 90 days syringe with needle (NanoLumens Luer Lock Syringe with needle) As directed HPI HPI Comments History of Present Illness Details 62-year-old female patient returning for re-evaluation of a right axillary lump which was self identified. She was previously examined in October 2022 and recommendation made for excision of this palpable lump. Workup with mammogram and ultrasound on 08/30/2022 revealed no suspicious findings (BI-RADS 1). Her Tyrer-Cuzick remaining lifetime risk of breast cancer was calculated at 17%. She does report a strong family history of pancreatic cancer and subsequently underwent genetic testing. This revealed no clinically significant mutations and no mutations of unknown significance. She does report complaints of abdominal pain in the upper abdomen but denies nausea, vomiting, fever or chills. She continues to feel the lump in the right axilla and notes some pain extending into the mid right chest just below the clavicle. She is requesting excision of this palpable mass once again. She underwent an extensive cardiac workup and is ready to proceed with surgery. She denies a previous history of breast problems or breast surgery. Her family history is negative for breast cancer. She does have a strong family history of pancreatic cancer. She previously underwent a lap band procedure at [facility]. She also underwent cholecystectomy. She is , and breastfed her children. [facility] Medical History Hepatomegaly Needle exposure Microscopic hematuria Murmur Frequent UTI Iron deficiency anemia Dysuria Labile blood glucose Anemia Dyslipidemia Pernicious anemia Pre-op examination Cervicalgia of yvftajbz-stsmdgk-xikug region Vitamin D deficiency Osteoporosis 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 Asthma Paget's disease Fibromyalgia Nontoxic multinodular goiter Osteoarthritis HTN (hypertension) Surgical History History of removal of laparoscopic gastric banding device History of cystoscopy History of lobectomy of thyroid Mass of right parotid gland H/O laparoscopic adjustable gastric banding Hx of lithotripsy History of dilation and curettage History of delivery Hx of tonsillectomy Hx of gastric bypass Family History Mother Diabetes HTN (hypertension) Father Pancreatic cancer Diabetes HTN (hypertension) Maternal Grandmother Myocardial infarction Cancer Brother Pancreatic cancer Sister Uterine cancer Other Mental health disorder Social History Household Members: Family Housing: House Are you a primary health care law specialist to a significant other at home: No Do you presently have visiting nurse or other home services: No Alcohol intake: never Patient Tobacco Use Status: Former Tobacco user Tobacco use type: Cigarette e-Cigarette/Vaping Use: Never Used Second Hand Smoke Exposure: No service: No Current occupational status: unemployed and disabled Sexual orientation: Straight/Heterosexual Gender identity: Female Cognitive needs: No Hearing needs: No Vision needs: Yes (glasses) Female Reproductive History Menstrual Age of Menarche: 10 Review of Systems Const All systems reviewed & are unremarkable except as noted in HPI and below Denies chills, Denies fever(s), Denies headache(s), Denies poor appetite and Denies weakness ENT Denies headache(s) Card Denies chest pain, Denies irregular heart rhythm, Denies palpitations and Denies dyspnea Resp Denies cough, Denies excessive phlegm production and Denies dyspnea GI Denies abdominal pain, Denies bloating, Denies change in bowel habits, Denies constipation, Denies heartburn, Denies diarrhea, Denies nausea and Denies vomiting Denies urinary frequency and Denies nipple discharge Musc Denies back pain, Denies muscle weakness and Denies numbness Skin/Breast Reports breast swelling, Denies breast skin changes, Denies breast pain, Reports breast mass, Denies changing lesions, Denies nipple discharge and Denies unusual bruising Neuro Denies headache(s), Denies numbness, Denies paresthesias and Denies weakness Psych Denies anxiety and Denies depression Endo Denies palpitations Moses/Lymph Denies lymphadenopathy Physical Exam Vital Signs: Last Vital Signs Pulse 62 07/25/23 09:36 BP 130/78 07/25/23 09:36 BMI result Body Mass Index 28.7 Const General: cooperative and no acute distress Nutritional Appearance: well nourished Orientation/consciousness: patient oriented x3 Limitations: no limitations HEENT Head: Yes normocephalic and Yes atraumatic Ears: hearing grossly normal bilaterally Chest Other: Soft tissue mass noted in the subcutaneous tissue in the upper outer quadrant extending into the axilla right breast measuring approximately 3 cm in diameter. Consistency is that of fatty tissue suggestive of a lipoma. No overlying skin changes are appreciated. Lesion is felt best in the standing position. No other palpable breast mass or enlarged lymph nodes are appreciated. Left breast reveals no skin change, nipple discharge, palpable mass, or enlarged lymph nodes. Chest/axillae images: 1. Soft tissue mass within the subcutaneous tissue or superficial axilla measuring approximately 3-4 cm in diameter. Nontender to palpation. Resp Effort & Inspection: normal respiratory effort, no audible wheezes, no cough and no respiratory distress Cardio Jugular venous distension: no JVD GI Inspection: Yes normal to inspection Skin Other: Warm, dry, no rash Neuro General: patient oriented x3 Extrem General: Yes no clubbing, cyanosis or edema Assessment & Plan Assessment & Plan (1) Abdominal pain: Code(s): R10.9 - Unspecified abdominal pain Qualifiers: Abdominal location: right lower quadrant Qualified Code(s): R10.31 - Right lower quadrant pain (2) Breast mass, right: Code(s): N63.10 - Unspecified lump in the right breast, unspecified quadrant Qualifiers: Breast mass location: upper outer quadrant Qualified Code(s): N63.11 - Unspecified lump in the right breast, upper outer quadrant Plan 62-year-old female patient with a right axillary mass noted on self examination. Workup with mammogram and ultrasound were negative for any suspicious findings. Examination today does again confirm a large palpable soft tissue mass in the upper outer quadrant noted best in the standing position. Findings are suggestive of a lipoma within the subcutaneous tissue or axilla. I recommended an excision of this lesion as a short-stay surgery. After discussion of the procedure, risks, and alternatives, she consents to excision of the right axillary mass. She will be scheduled as a short-stay surgery at her earliest convenience. In addition I recommended CT abdomen and pelvis to a further evaluate her abdominal pain which seems to be increasing in severity. Orders: Orders CT abdomen pelvis w IV con Today R10.9 - Unspecified abdominal pain Coding Level of Care Code Est Pt Level 4 (43345) Diagnoses Right lower quadrant abdominal pain R10.31 Abdominal location: right lower quadrant Mass of upper outer quadrant of right breast N63.11 Breast mass location: upper outer quadrant
[2023-07-25 09:36] VITALS: BP 130/78; PULSE 62; BMI 28.7
== END 2023-07-25 09:55 | disposition home or self-care (01) ==
PROVIDERS: PCP Internal Medicine; Visit Provider Surgery
DX: N63.11 Unspecified lump in the right breast, upper outer quadrant (principal); R10.31 Right lower quadrant pain
CPT/HCPCS: 99214

== ENCOUNTER → 2023-07-25 09:30 | Outpatient (BNVA) | payer OTHER, SELFPAY | PROVIDERS: PCP Internal Medicine; Visit Provider Surgery | DX: R10.31 Right lower quadrant pain (principal); N63.11 Unspecified lump in the right breast, upper outer quadrant | CPT/HCPCS: 99212 ==

== ENCOUNTER → 2023-07-31 10:03 | Outpatient (BNVA) | payer OTHER, SELFPAY | PROVIDERS: PCP Internal Medicine; Visit Provider Urology | DX: N30.10 Interstitial cystitis (chronic) without hematuria (principal) | CPT/HCPCS: 51700; 51701; J1643; J2920 ==

== ENCOUNTER 2023-08-02 08:49 | Outpatient (AMB) | payer OTHER, SELFPAY ==
[2023-08-02 08:51] VITALS: BP 120/76; PULSE 51; BMI 29.1
--- NOTE | 2023-08-02 08:51 | A.OFFVIS_ITS ---
Intake Vital Signs 08/02/23 08:51 Height 5 ft 1 in Weight 154 lb 1.65 oz BMI 29.1 BP 120/76 Blood Pressure Location Lt brachial Position Sitting Pulse 51 Pulse Source Pulse Oximeter Intake Visit Reasons: osteoporosis, multinodular goiter and Paget's Intake Note: Patient present for Osteoporosis, Multinodular goiter and Paget's follow up visit. Strategic Planning Specialist Required: Yes Strategic Planning Specialist Language: Painting Instructor Name: Emperatriz Agrawal Information Interpreted: non-clinical & clinical Accompanied by: Self / Same As Patient Allergies phentermine Allergy (Intermediate, Verified 08/02/23 09:00) Palpitations HPI HPI Comments History of Present Illness Details 62-year-old female, for osteoporosis and Paget's disease of the bone, NTMNG.. She is feeling well. . Have not been able to give the patient a Reclast dose for Paget's disease and osteoporosis. Patient did not cover and we are in the process of appealing the decision. I had advised the patient to start alendronate 70 mg weekly, she had severe abdominal pain, nausea and care symptoms every time she took the pill and she had discontinue. She had fine-needle aspiration on 06/16/2020 of left dominant nodule, cytology was consistent with benign follicular nodule [place] category 2. . She is advised to have a total thyroidectomy by Dr. Petty. She had a left lobectomy She denies any previous fractures, she has been treated with IV bisphosphonates in the past. Last dose more than 5 years ago. She is still complaining of bone pain in the skull prominences. She denies hearing loss. She has a normal alkaline phosphatase level She has GERD, she has positive FH of osteoporosis in her sister, denies nephrolithiasis, never steroids used, Denies negative History of head or neck irradiation. Bisphosphonates use: At least 2 doses of IV bisphosphonates Calcium intake: None Vitamin D: 1000 international units daily OTC Herbal medications. None No hx of fractures since last visit 10/02/2019 AP SPINE L1-L4 (excluding L2 and L3): The data of L1-L4 has been changed to exclude the L2 and L3 vertebral bodies, because density from gastric lap band port at these levels may cause overestimation of lumbar spine density. Current: BMD 0.855 g/cm2, Z-score -1.4, T-score -2.6, osteoporosis, 16.1% decrease from previous, 16.4% decrease from baseline (<5% change is not significant). Prior: BMD 1.019 g/cm2. Baseline: BMD 1.023 g/cm2. LEFT FEMUR, NECK: Current: BMD 1.011 g/cm2, Z-score 1.0, T-score -0.2, normal. Prior: BMD 1.022 g/cm2. Baseline: BMD 1.113 g/cm2. LEFT FEMUR, TOTAL: Current: BMD 0.954 g/cm2, Z-score 0.5, T-score -0.4, normal, 12.1% decrease from previous, 17.0% decrease from baseline (<5% change is not significant). Prior: BMD 1.085 g/cm2. Baseline: BMD 1.150 g/cm2. 03/24/2015 bone scan The study demonstrates relatively diffuse uptake of tracer in the calvarium, more extensive on the left than the right in a distribution consistent with Paget's disease. The intensity is mildly increased compared to the prior study but the distribution appears unchanged. 04/15/2020 US thyroid Right Thyroid Lobe: 4.1 x 1.3 x 1.7 cm, volume 5.0 mL. Parenchyma: The gland echotexture is homogeneous. Thyroid vascularity is normal. Left Thyroid Lobe: 5.4 x 2.0 x 2.1 cm, volume 11.7 mL. Parenchyma: The gland echotexture is homogeneous. Thyroid vascularity is increased. Isthmus: 0.6 cm in maximum AP dimension. RIGHT THYROID LOBE: No nodules. ISTHMUS: No nodules. LEFT THYROID LOBE: There are 3 nodules seen. 1. Location: Superior. Size: 1.2 x 0.9 x 1.1 cm. Nodule characteristics: Heterogeneous, smooth margin, no calcification and. 2. Location: Superior/middle/lateral. Size: 0.3 x 0.2 x 0.2 cm. Nodule characteristics: Heterogeneous, smooth margin, no calcification and positive intranodular flow.. 3. Location: Inferior. Size: 3.5 x 2.0 x 3.6 cm. Nodule characteristics: Solid with small cystic component, smooth margin, no calcification and positive intranodular flow. NODES: There is an enlarged right submandibular lymph node. This measures 1.3 x 2.2 x 1.5 cm.. TECHNIQUE: 04/06/22 Using a [employer] DXA System (software version: 13.1) manufactured by [employer], dual-energy x-ray absorptiometry was performed of the lumbar spine and left hip. The images are of good technical quality. Summary results are attached. FINDINGS: AP SPINE L1-L4: BMD 0.865 g/cm2, Z-score -1.1, T-score -2.6, osteoporosis. LEFT FEMUR, NECK: BMD 0.969 g/cm2, Z-score 0.9, T-score -0.5, normal. LEFT FEMUR, TOTAL: BMD 0.932 g/cm2, Z-score 0.5, T-score -0.6, normal. IDENTIFIED RISK FACTORS: Osteoporosis, low calcium intake, height loss, secondary osteoporosis, menopause, glucocorticoids (chronic). HISTORY OF FRACTURE: None listed. MEDICATIONS: Calcium supplements or multivitamin, vitamin D. MM/XR DEXA axial skeleton IMPRESSION: 1. DIAGNOSIS: Osteoporosis based on the lowest T-score value of -2.6 in the lumbar spine applying World Health Organization criteria.? ? Laboratory Tests 02/13/21 02/13/21 02/13/21 09:28 09:34 09:34 Creatinine 0.63 Estimated GFR > 60 Calcium 8.9 Alkaline Phosphata se 84 Albumin 3.8 Collgn I C-Telopep tide 25-OH Vitamin D To mckenna 39 TSH 0.91 Free T4 0.98 02/13/21 09:34 Creatinine Estimated GFR Calcium Alkaline Phosphata se Albumin Collgn I C-Telopep tide 738 25-OH Vitamin D To mckenna TSH Free T4 Laboratory Tests 04/05/20 04/05/20 04/05/20 11:08 11:08 11:26 Creatinine Est GFR (Non-Af Am er) Calcium Alkaline Phosphata se Albumin N-Telopeptide X-li nked 87 25-OH Vitamin D To mckenna Vit D 1,25-Dihyd T otal 78 H 1,25 Dihydroxy Vit D2 12 1,25 Dihydroxy Vit D3 66 Free T4 0.99 TSH 3rd Generation PTH Intact 53 Bone Specific Alk Phos 11.7 Thyroglobulin Anti body <1 Thyroid Peroxidase Ab 1 06/16/20 11:00 Creatinine 0.61 Est GFR (Non-Af Am er) > 60 Calcium 9.1 Alkaline Phosphata se 78 Albumin 3.8 N-Telopeptide X-li nked 25-OH Vitamin D To mckenna 22.7 Vit D 1,25-Dihyd T otal 1,25 Dihydroxy Vit D2 1,25 Dihydroxy Vit D3 Free T4 TSH 3rd Generation 0.62 PTH Intact Bone Specific Alk Phos Thyroglobulin Anti body Thyroid Peroxidase Ab Last total alkaline phosphatase level was slightly elevated . Relief Pharmacist at [facility] gave a dose of Reclast 4 mos ago in [place] . Rheumatology follows her for Paget's disease and osteoporosis [facility] Medical History Hepatomegaly Needle exposure Microscopic hematuria Murmur Frequent UTI Iron deficiency anemia Dysuria Labile blood glucose Anemia Dyslipidemia Pernicious anemia Pre-op examination Cervicalgia of gwfxkbwp-ulumbgx-nufns region Vitamin D deficiency Osteoporosis 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 Asthma Paget's disease Fibromyalgia Nontoxic multinodular goiter Osteoarthritis HTN (hypertension) Surgical History History of removal of laparoscopic gastric banding device History of cystoscopy History of lobectomy of thyroid Mass of right parotid gland H/O laparoscopic adjustable gastric banding Hx of lithotripsy History of dilation and curettage History of delivery Hx of tonsillectomy Hx of gastric bypass Family History Mother Diabetes HTN (hypertension) Father Pancreatic cancer Diabetes HTN (hypertension) Maternal Grandmother Myocardial infarction Cancer Brother Pancreatic cancer Sister Uterine cancer Other Mental health disorder Social History Household Members: Family Housing: House Are you a primary healthcare administration intern to a significant other at home: No Do you presently have visiting nurse or other home services: No Alcohol intake: never Patient Tobacco Use Status: Former Tobacco user Tobacco use type: Cigarette e-Cigarette/Vaping Use: Never Used Second Hand Smoke Exposure: No service: No Current occupational status: unemployed and disabled Sexual orientation: Straight/Heterosexual Gender identity: Female Cognitive needs: No Hearing needs: No Vision needs: Yes (glasses) Female Reproductive History Menstrual Age of Menarche: 10 Physical Exam Vital Signs: Last Vital Signs Pulse 51 08/02/23 08:51 BP 120/76 08/02/23 08:51 BMI result Body Mass Index 29.1 Assessment & Plan Assessment & Plan (1) Osteoporosis: Code(s): M81.0 - Age-related osteoporosis without current pathological fracture Qualifiers: Osteoporosis type: age-related Presence of current pathological fracture: without current pathological fracture Qualified Code(s): M81.0 - Age- related osteoporosis without current pathological fracture Plan: This 62-year-old female with history of osteoporosis and Paget's disease who received a few doses of IV bisphosphonate. She is following with Rheumatology for this. There is no need to return to endocrinology and she will follow up with Rheumatology regarding osteoporosis (2) Nontoxic multinodular goiter: Code(s): E04.2 - Nontoxic multinodular goiter Plan: Status post left lobectomy. Right lobe was about the presence of any nodules. There is no need for endocrine follow-up regarding this is (3) Paget's disease: Plan: Alkaline phosphatase level is slightly elevated suggesting possible recurrence of Paget's Plan is to have patient follow-up with Rheumatology. No need for any further endocrine follow-up (4) Vitamin D deficiency: Code(s): E55.9 - Vitamin D deficiency, unspecified Orders: Orders Vitamin D 25-OH Total Today E55.9 - Vitamin D deficiency, unspecified Alkaline Phosphatase Bone Today E55.9 - Vitamin D deficiency, unspecified Coding Level of Care Code Est Pt Level 3 (30387) Diagnoses Age-related osteoporosis without current pathological fracture M81.0 Osteoporosis type: age-related Presence of current pathological fracture: without current pathological fracture Nontoxic multinodular goiter E04.2 Paget's disease Vitamin D deficiency E55.9
== END 2023-08-02 09:50 | disposition home or self-care (01) ==
PROVIDERS: PCP Internal Medicine; Visit Provider Internal Medicine Endocrinology, Diabetes & Metabolism
DX: M81.0 Age-related osteoporosis without current pathological fracture (principal); E04.2 Nontoxic multinodular goiter; E55.9 Vitamin D deficiency, unspecified
CPT/HCPCS: 99213

== ENCOUNTER → 2023-08-02 08:49 | Outpatient (BNVA) | payer OTHER, SELFPAY | PROVIDERS: PCP Internal Medicine; Visit Provider Internal Medicine Endocrinology, Diabetes & Metabolism | DX: M81.0 Age-related osteoporosis without current pathological fracture (principal); E55.9 Vitamin D deficiency, unspecified; E04.2 Nontoxic multinodular goiter | CPT/HCPCS: 99212 ==

== ENCOUNTER → 2023-08-06 10:09 | Outpatient (BNVA) | payer OTHER, SELFPAY | PROVIDERS: PCP Internal Medicine; Visit Provider Urology | DX: N30.10 Interstitial cystitis (chronic) without hematuria (principal) | CPT/HCPCS: 51700; 51701; J1643 ==

== ENCOUNTER 2023-08-21 07:20 | Day surgery (SDC) | payer MEDICARE, MEDICAID, SELFPAY ==
[2023-08-15 07:56] VITALS: BMI 28.7
[2023-08-21 07:39] VITALS: BP 126/67; PULSE 57; RESP 16; TEMP 36.3; O2SAT 100; BMI 28.9
[2023-08-21] MEDS: Lactated Ringers 1,000 ML 100 ML IVCONT (08:07)
--- NOTE | 2023-08-21 08:29 | MHC.SHP ---
Pre-Procedural Eval Section A Date of Service: 08/21/23 The patient is an INPATIENT: No Changes since office visit: Yes Patient answered all questions; No Cold of Flu in the past 2 weeks, No New Medical Problems and No Changes in Medication The History & Physical has been completed within 30 days and I have reviewed it.: Yes Section B Chief Complaint: Unspecified lump in the right breast, upper outer Allergies: Allergies Allergy/AdvReac Type Severity Reaction Status Date / Time phentermine Allergy Intermediate Palpitation Verified 08/21/23 07:46 s Plan Diagnosis/Plan: Unchanged I have reviewed the history and physical and performed a pertinent physical examination on my patient. No changes have occurred unless specified. Time Spent With Patient Time: Total time managing care of this patient today ____ minutes.
--- NOTE | 2023-08-21 08:39 | HO.ANESPROP2 ---
HPI - Anesthesia Eval Consult details Narrative: 62 yo female patient for excision of Right axillary mass PMFSH Active Problems Active Problems: All Active Problems (Updated 08/21/23 @ 08:40 by Angela Gilman MD) Chronic pain syndrome (Acute) Left hip pain (Acute) Ascending aorta dilatation (Acute) Lumbar spondylosis (Acute) Discogenic low back pain (Acute) Lumbar radiculitis (Acute) Abdominal pain (Acute) Dysuria (Acute) Physical exam (Acute) Pelvic pain (Acute) Cervical polyp (Acute) Microscopic hematuria (Acute) Gross hematuria (Acute) Breast mass, right (Acute) Pure hypercholesterolemia (Acute) PVCs (premature ventricular contractions) (Acute) Generalized abdominal pain (Acute) Interstitial cystitis (Acute) Bladder pain (Acute) B12 deficiency (Acute) Lumbar pain (Acute) Screen for colon cancer (Acute) Hepatomegaly (Acute) HTN (hypertension) (Acute) Needle exposure (Acute) Microscopic hematuria (Acute) Murmur (Acute) Frequent UTI (Acute) Iron deficiency anemia (Acute) Dysuria (Acute) Labile blood glucose (Acute) Anemia (Chronic) Dyslipidemia (Acute) Pernicious anemia (Acute) Pre-op examination (Acute) Cervicalgia of jppcskfz-xofkazb-vqhfn region (Acute) Nontoxic multinodular goiter (Acute) Paget's disease (Acute) Vitamin D deficiency (Acute) Osteoporosis (Acute) JOSSELYN not using CPAP Past Medical History Medical History Hepatomegaly Needle exposure Microscopic hematuria Murmur Frequent UTI Iron deficiency anemia Dysuria Labile blood glucose Anemia Dyslipidemia Pernicious anemia Pre-op examination Cervicalgia of dyltvkjv-jrcnucl-arnhk region Vitamin D deficiency Osteoporosis 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 Asthma Paget's disease Fibromyalgia Nontoxic multinodular goiter Osteoarthritis HTN (hypertension) Family History Family History Mother Diabetes HTN (hypertension) Father Pancreatic cancer Diabetes HTN (hypertension) Maternal Grandmother Myocardial infarction Cancer Brother Pancreatic cancer Sister Uterine cancer Other Mental health disorder Family history of problems with anesthesia: No Surgical History Surgical History History of removal of laparoscopic gastric banding device History of cystoscopy History of lobectomy of thyroid Mass of right parotid gland H/O laparoscopic adjustable gastric banding Hx of lithotripsy History of dilation and curettage History of delivery Hx of tonsillectomy Hx of gastric bypass History of Problems with Anesthesia: No Social History Social History Household Members: Family Housing: House Are you a primary healthcare facility administrator to a significant other at home: No Do you presently have visiting nurse or other home services: No Alcohol intake: never Patient Tobacco Use Status: Former Tobacco user Tobacco use type: Cigarette Smoked in Last 30 Days: No e-Cigarette/Vaping Use: Never Used Second Hand Smoke Exposure: No Use of substances other than those prescribed or required for medical reasons: No Are you DNR?: No Advance Directives: No Advance Directives Information Provided: Yes service: No Current occupational status: unemployed and disabled Sexual orientation: Straight/Heterosexual Gender identity: Female Cognitive needs: No Hearing needs: No Vision needs: Yes (glasses) Meds Allergies Allergy/AdvReac Type Severity Reaction Status Date / Time phentermine Allergy Intermediate Palpitation Verified 08/21/23 07:46 s Active Medications: Current Medications Lactated Ringer's (Lr) 1,000 mls @ 100 mls/hr IVCONT .Q10H BEATRICE Last Admin: 08/21/23 08:07 Dose: 100 mls/hr Home Medications Medication Instructions Recorded Confirmed Last Taken Type albuterol sulfate 90 mcg/actuation 2 puff inhalation Q6H PRN 08/22/20 08/21/23 Unknown History aerosol inhaler Shortness Of Breath Or Wheezing calcium citrate 500 mg PO BID 08/17/21 08/21/23 Unknown History lancets 30 gauge (Pure Comfort #100 ea 08/17/21 08/21/23 Unknown History Safety Lancets) epinephrine 0.3 mg/0.3 mL IM 12/18/22 07/25/23 Unknown History injection, auto-injector Exam Exam Date and Time: August 21, 2023 0839 Height,Weight and Vital Signs: Height 5 ft 1 in Weight 69.4 kg Last Vital Signs Temp 97.3 F 08/21/23 07:39 Pulse 57 08/21/23 07:39 Resp 16 08/21/23 07:39 BP 126/67 08/21/23 07:39 Pulse Ox 100 08/21/23 07:39 O2 Del Method Room Air 08/21/23 07:39 Airway Mallampati Class: II TM Dist: >3cm Neck ROM: Full Loose/Missing/Broken Teeth: Yes (Many missing. Top front incisor chipped. Denies loose teeth) Heart: RRR Lungs: CTAB Assessment and Plan Assessment Anesthesia Assessment: Anesthesia Plan Discussed and Chart Reviewed Final Anesthetic Review Family History of Problems with Anesthesia: No History of Problems with Anesthesia: No NPO: Yes ASA Class: III Final Preanesthetic Review: No Changes in Pt Med Stat, Meds/Allgs Chart Reviewed, Consent Obtained/Reviewed and Anes Risks/Benef Reviewed Patient Risk: Intermediate Procedure Risk: Low Assessment/Block/Sedation in SS: Assess/Block/Sedation-SS Anesthetic Plan Anesthetic Plan: GA Disposition: Standard PACU
--- NOTE | 2023-08-21 09:39 | P.OP_ITS ---
Operative Note Operative Note Date of Service: 08/21/23 Narrative: Preoperative diagnosis: Right axillary mass Postoperative diagnosis: right axillary lipoma Procedure: excision of right axillary lipoma Surgeon: Florencio Wells MD Tuna Purse Seiner: Isabella Alvarez PA-C Anesthesia: general LMA Indications for procedure: 62-year-old female patient presenting with an enlarging soft tissue mass in the upper outer quadrant right breast / superficial axilla. Findings are suggestive of either a lipoma or enlarged lymph node. Operative findings: Large lipoma right axilla. Specimen: lipoma right axilla Estimated blood loss: less than 2 mL Complications: none Procedure details: patient was brought to the OR and placed in a supine position. After administering general anesthesia patient's left breast axilla were prepped with ChloraPrep and draped in a sterile fashion. A surgical time- out was called the consent confirmed. Patient received preoperative antibiotics and Venodyne boots were in place. Local anesthesia was infiltrated in the lower portion of the axilla. Incision was then made with a scalpel carried out through subcutaneous tissue. The lipoma was palpated and grasped with an Allis clamp. Electrocautery was then used to dissect the lipoma. Hemostasis was assured all times using electrocautery. The specimen was removed and sent to pathology for further examination. Deep axillary tissue was then reapproximated using interrupted 3-0 Polysorb sutures. Dermis was also reapproximated using interrupted 3-0 Polysorb sutures. Skin was then closed using a running subcuticular 4-0 Polysorb suture. Sterile dressings consisting of Steri-Strips 2 x 2 gauze and Tegaderm were then applied. Patient tolerated the procedure well. Sponge, instrument, and needle counts reported as correct. The patient was transferred to PACU in stable condition.
[2023-08-21 09:47] VITALS: BP 106/61; PULSE 61; RESP 14; TEMP 36.6; O2SAT 99
[2023-08-21] MEDS: Acetaminophen 325 MG TABLET 650 MG PO (09:50)
[2023-08-21 09:52] VITALS: BP 116/64; PULSE 59; RESP 13; O2SAT 98
[2023-08-21 09:57] VITALS: BP 118/65; PULSE 55; RESP 16; O2SAT 100
[2023-08-21 10:02] VITALS: BP 121/65; PULSE 51; RESP 16; O2SAT 100
[2023-08-21 10:17] VITALS: BP 109/72; PULSE 51; RESP 18; TEMP 36.3; O2SAT 100
== END 2023-08-21 11:11 ==
LOC: HO.SSS 07:21
PROVIDERS: PCP Internal Medicine; Visit Provider Surgery
PROC: (CPT 24071; principal; 2023-08-21 08:40)
DX: D17.21 Benign lipomatous neoplasm of skin and subcutaneous tissue of right arm (principal); R16.0 Hepatomegaly, not elsewhere classified; D50.9 Iron deficiency anemia, unspecified; I10 Essential (primary) hypertension; E78.5 Hyperlipidemia, unspecified; M81.0 Age-related osteoporosis without current pathological fracture; M79.7 Fibromyalgia; J45.909 Unspecified asthma, uncomplicated; E04.2 Nontoxic multinodular goiter; Z79.899 Other long term (current) drug therapy; Z88.8 Allergy status to other drugs, medicaments and biological substances; Z98.84 Bariatric surgery status; Z87.891 Personal history of nicotine dependence
CPT/HCPCS: 24071; 88304; J0690; J3010

== ENCOUNTER → 2023-08-21 07:20 | Outpatient (BNV) | payer MEDICARE, MEDICAID, SELFPAY | PROVIDERS: PCP Internal Medicine; Visit Provider Surgery | DX: D17.21 Benign lipomatous neoplasm of skin and subcutaneous tissue of right arm (principal) | CPT/HCPCS: 21552 ==

== ENCOUNTER 2023-08-28 10:01 | Outpatient (REF) | payer MEDICARE, MEDICAID, SELFPAY ==
--- NOTE | ~2023-08-28 | CT_ITS ---
EXAMINATION: CT ABDOMEN AND PELVIS WITH CONTRAST CLINICAL INFORMATION: Abdominal pain in a patient with a abnormality history of pancreatic carcinoma COMPARISON: 01/25/2023 TECHNIQUE: Multidetector volumetric images were obtained from the superior aspect of the liver through the pubic symphysis following administration 85 mL of Omnipaque 350 intravenous contrast. Sagittal and coronal reformatted images were obtained on the technologist's workstation. Oral contrast: Was used This CT examination was performed using dose optimization techniques as appropriate, variously including the following: *Automated exposure control *Adjustment of mA and/or kV according to patient size (this includes techniques or standardized protocols for targeted exams where dose is matched to indication/reason for exam; i.e. extremities or head) *Use of iterative reconstruction technique DLP: 540 mGy-cm FINDINGS: LUNG BASES: The visualized lung bases are unremarkable. LIVER, GALLBLADDER, AND BILIARY TREE: There is stable 0.6 cm calcified granuloma in the right lobe of the liver . Gallbladder is surgically absent. CBD is prominent, measured 1.1 cm but revealed no evidence of choledocholithiasis. PANCREAS: Unremarkable. SPLEEN: Unremarkable. ADRENAL GLANDS: Unremarkable. KIDNEYS AND URETERS: The kidneys are normal in size, shape, and attenuation. No hydronephrosis, hydroureter, or calculi seen. No perinephric stranding. BLADDER: Unremarkable. GASTROINTESTINAL TRACT: There are postsurgical changes at the gastroesophageal junction and stomach due to gastric bypass surgery and there is small hiatal hernia. Small bowel loops are not obstructed . There is redundancy of the colonic loops with large amount of feces. Appendix is normal. There is no free air. Mesentery unremarkable. ABDOMINAL WALL: Patient is status post abdominal wall repair with mesh LYMPH NODES: Normal. VASCULAR: Unremarkable. PELVIC VISCERA: Unremarkable. OSSEOUS STRUCTURES: Unremarkable. CT/CT abdomen pelvis w IV con IMPRESSION: 1. Status post gastric bypass surgery with small hiatal hernia. 2. Status post cholecystectomy with mildly dilated CBD with no evidence of choledocholithiasis 3. Status post abdominal wall repair. 4. Constipation. Fleischner guidelines were followed.
[2023-08-29 07:32] LABS: Creatinine POC 0.5 mg/dL (0.5-1.4); GFR POC > 60
== END 2023-08-28 10:02 | disposition home or self-care (01) ==
LOC: HO.CT 10:01
PROVIDERS: PCP Internal Medicine; Visit Provider Surgery
DX: R10.9 Unspecified abdominal pain (principal)
CPT/HCPCS: 74177; 82565; Q9967

== ENCOUNTER → 2023-08-29 10:25 | Outpatient (BNVA) | payer MEDICARE, MEDICAID, SELFPAY | PROVIDERS: PCP Internal Medicine; Visit Provider Surgery | DX: Z48.01 Encounter for change or removal of surgical wound dressing (principal) | CPT/HCPCS: 99211 ==

== ENCOUNTER 2023-08-30 13:20 | Outpatient (AMB) | payer MEDICARE, MEDICAID, SELFPAY ==
[2023-08-30 13:24] VITALS: BP 110/68; PULSE 70; BMI 29.2
--- NOTE | 2023-08-30 13:24 | MHC.OFFVIS ---
Intake Vital Signs 08/30/23 13:24 Height 5 ft 1 in Weight 154 lb 5.177 oz BMI 29.2 BP 110/68 Blood Pressure Location Lt brachial Position Sitting Pulse 70 Intake Visit Reasons: F/U Intake Note: follow-up with ekg c/o chest palpitation and sob x 3 weeks Bankruptcy Processor Required: Yes Bankruptcy Processor Name: Michael garvey Allergies phentermine Allergy (Intermediate, Verified 08/21/23 07:46) Palpitations Medication List - Last Reconciled 08/30/23 by Edith Osullivan NP acetaminophen 500 mg PO QID PRN 10 days albuterol sulfate 90 mcg/actuation 2 puffs inhalation Q6H PRN alcohol swabs (Alcohol Prep Pads) 1 pad topical TID 30 days blood sugar diagnostic (woojuStyle Lite Strips) to test 2 to 3 times a day as directed blood-glucose meter (FreeStyle Lite Meter kit) As directed calcium citrate 500 mg PO BID cholecalciferol (vitamin D3) 25 mcg PO DAILY 90 days epinephrine IM folic acid 1 mg PO DAILY 90 days lancets (Conversion Sound Lancets) Use 1 lancet once a day lancets (FlyData Comfort Safety Lancets) As directed metoprolol succinate ER 25 mg PO DAILY 90 days omeprazole 20 mg PO DAILY 90 days oxycodone 5 mg PO Q6H PRN syringe with needle (Coreworks Luer Lock Syringe with needle) As directed HPI HPI Comments History of Present Illness Details 62-year-old female presents for follow-up on her palpitations. She reports they have been getting worse the last few weeks. She feels her heart speed up and then it returns back to normal. She reports some SOB with these episodes. She reports these are at rest. Holter in January showed mostly PVCs. Echo is January showed normal EF of 63%. During her stress test in Nov she also had isolated PVCs. She does report drinking up to three Vitamin Tadeo. These contain 50mg of caffeine each. Advised to avoid these and drink regular water. 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 Asthma Paget's disease Fibromyalgia Nontoxic multinodular goiter Osteoarthritis HTN (hypertension) Surgical History (Updated 08/28/23 @ 09:47 by RHEA Cano) History of excision of mass (08/21/23) History of removal of laparoscopic gastric banding device History of cystoscopy History of lobectomy of thyroid Mass of right parotid gland H/O laparoscopic adjustable gastric banding Hx of lithotripsy History of dilation and curettage History of delivery Hx of tonsillectomy Hx of gastric bypass Family History Mother Diabetes HTN (hypertension) Father Pancreatic cancer Diabetes HTN (hypertension) Maternal Grandmother Myocardial infarction Cancer Brother Pancreatic cancer Sister Uterine cancer Other Mental health disorder Social History Household Members: Family Housing: House Are you a primary daytime caregiver to a significant other at home: No Do you presently have visiting nurse or other home services: No Alcohol intake: never Patient Tobacco Use Status: Former Tobacco user Tobacco use type: Cigarette e-Cigarette/Vaping Use: Never Used Second Hand Smoke Exposure: No service: No Current occupational status: unemployed and disabled Sexual orientation: Straight/Heterosexual Gender identity: Female Cognitive needs: No Hearing needs: No Vision needs: Yes (glasses) Female Reproductive History Menstrual Age of Menarche: 10 Review of Systems Const Denies chills, Denies fatigue, Denies fever(s), Denies frequent falls, Denies weakness, Denies weight gain and Denies weight loss ENT Denies dizziness Card Denies chest pain, Denies leg edema, Denies lightheadedness, Denies palpitations, Denies dyspnea, Denies dyspnea on exertion, Denies orthopnea and Denies other (loss of consciousness) Resp Denies cough, Denies dyspnea and Denies dyspnea on exertion GI Denies hematochezia and Denies change in stool character Musc Denies abnormal gait, Denies muscle weakness, Denies numbness, Denies radiating pain into limb and Denies tingling Neuro Denies abnormal gait, Denies dizziness, Denies frequent falls, Denies numbness, Denies tingling and Denies weakness Endo Denies fatigue and Denies palpitations Physical Exam Vital Signs: Last Vital Signs Pulse 70 08/30/23 13:24 BP 110/68 08/30/23 13:24 BMI result Body Mass Index 29.2 Assessment & Plan Assessment & Plan (1) PVCs (premature ventricular contractions): Code(s): I49.3 - Ventricular premature depolarization Plan Reported increase in palpations. Continue metorpolol siccinate ER 25mg. Reduce caffeinated beverages such as vitamin water, coffee, and tea. Advised stress reduction and good sleep hygiene. Increase water intake. Will have her follow-up with Dr. Handy in 6 months. Sooner if needed. Advised to call if palpitations do not resolve with these techniques. Coding Level of Care Code Est Pt Level 3 (99054) Diagnoses PVCs (premature ventricular contractions) I49.3
== END 2023-08-30 14:02 | disposition home or self-care (01) ==
PROVIDERS: PCP Internal Medicine; Visit Provider Nurse Practitioner
DX: I49.3 Ventricular premature depolarization (principal)
CPT/HCPCS: 99213

== ENCOUNTER → 2023-08-30 13:20 | Outpatient (BNVA) | payer MEDICARE, MEDICAID, SELFPAY | PROVIDERS: PCP Internal Medicine; Visit Provider Nurse Practitioner | DX: I49.3 Ventricular premature depolarization (principal) | CPT/HCPCS: 99212 ==

== ENCOUNTER → 2023-09-05 10:02 | Outpatient (BNVA) | payer MEDICARE, MEDICAID, SELFPAY | PROVIDERS: PCP Internal Medicine; Visit Provider Urology | DX: N30.10 Interstitial cystitis (chronic) without hematuria (principal) | CPT/HCPCS: 51700; 51701 ==

== ENCOUNTER 2023-09-06 13:12 | Outpatient (AMB) | payer MEDICARE, MEDICAID, SELFPAY ==
--- NOTE | 2023-09-06 13:30 | MHC.OFFVIS ---
Intake Vital Signs 09/06/23 13:31 Height 5 ft 1 in Weight 156 lb BMI 29.5 BP 128/67 Blood Pressure Location Rt brachial Position Sitting Pulse 71 Intake Visit Reasons: CT scan results, abd pain Intake Note: Patient here to discuss CT scan. C/o abd pain that spreads from right to left side. It is not constant. Taking friends gabapentin rx, which helps. 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 She has been seen by chronic Pain Clinic as well as GI. Patient had a recent CT scan the abdomen pelvis which demonstrated postoperative changes but no evidence of any intra-abdominal pathology or abdominal wall pathology. She is tolerating her diet. She is having normal bowel habits. Chart was reviewed patient evaluated [facility] Medical History Hepatomegaly Needle exposure Microscopic hematuria Murmur Frequent UTI Iron deficiency anemia Dysuria Labile blood glucose Anemia Dyslipidemia Pernicious anemia Pre-op examination Cervicalgia of iscvfixu-mxolhfe-bcawb region Vitamin D deficiency Osteoporosis 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 Asthma Paget's disease Fibromyalgia Nontoxic multinodular goiter Osteoarthritis HTN (hypertension) Surgical History History of excision of mass (08/21/23) History of removal of laparoscopic gastric banding device History of cystoscopy History of lobectomy of thyroid Mass of right parotid gland H/O laparoscopic adjustable gastric banding Hx of lithotripsy History of dilation and curettage History of delivery Hx of tonsillectomy Hx of gastric bypass Family History Mother Diabetes HTN (hypertension) Father Pancreatic cancer Diabetes HTN (hypertension) Maternal Grandmother Myocardial infarction Cancer Brother Pancreatic cancer Sister Uterine cancer Other Mental health disorder Social History Household Members: Family Housing: House Are you a primary health care sanitary technician to a significant other at home: No Do you presently have visiting nurse or other home services: No Alcohol intake: never Patient Tobacco Use Status: Former Tobacco user Tobacco use type: Cigarette e-Cigarette/Vaping Use: Never Used Second Hand Smoke Exposure: No service: No Current occupational status: unemployed and disabled Sexual orientation: Straight/Heterosexual Gender identity: Female Cognitive needs: No Hearing needs: No Vision needs: Yes (glasses) Female Reproductive History Menstrual Age of Menarche: 10 Physical Exam Vital Signs: Last Vital Signs Pulse 71 09/06/23 13:31 BP 128/67 09/06/23 13:31 BMI result Body Mass Index 29.5 GI Other: Abdomen moderately corpulent, with pannus. Multiple scars. Soft, benign. No evidence of any obvious hernias or fascial defects. Assessment & Plan Assessment & Plan (1) Chronic pain syndrome: Code(s): G89.4 - Chronic pain syndrome Plan Assist the patient that based on the exam and recent CT scan, there were no acute surgical issues for me to address. She has been seen by as noted above chronic Pain Clinic and GI and I recommend she follow up with does providers. All questions were answered. She will follow-up p.r.n.. Coding Level of Care Code New Pt Level 4 (16875) Diagnoses Chronic pain syndrome G89.4
[2023-09-06 13:31] VITALS: BP 128/67; PULSE 71; BMI 29.5
== END 2023-09-06 13:36 | disposition home or self-care (01) ==
PROVIDERS: PCP Internal Medicine; Visit Provider Surgery
DX: G89.4 Chronic pain syndrome (principal)
CPT/HCPCS: 99213

== ENCOUNTER → 2023-09-06 13:12 | Outpatient (BNVA) | payer MEDICARE, MEDICAID, SELFPAY | PROVIDERS: PCP Internal Medicine; Visit Provider Surgery | DX: G89.4 Chronic pain syndrome (principal) | CPT/HCPCS: 99212 ==

== ENCOUNTER 2023-10-01 09:59 | Outpatient (REF) | payer OTHER, SELFPAY ==
--- NOTE | ~2023-10-01 | MM_ITS ---
EXAMINATION: MM SCREENING DIGITAL BREAST TOMOSYNTHESIS, BILATERAL CLINICAL INFORMATION: Screening. Asymptomatic. The patient is status post excision of a benign lipoma in the upper outer quadrant of the right breast. This excision was performed in August 2023. COMPARISON: Mammography: This study is compared with prior exams dating back to 2017. TECHNIQUE: Digital breast tomosynthesis is performed in both the craniocaudal and mediolateral oblique views along with computer-aided detection (CAD). Synthesized 2D images are generated from the tomosynthesis. FINDINGS: There are scattered areas of fibroglandular density (ACR BI-RADS breast composition Category b). There are no significant masses, abnormal calcifications, or other abnormalities. There are postsurgical changes in the upper outer quadrant of the right breast. MM/MM tomosynthesis screening BI IMPRESSION: No mammographic evidence of malignancy. ASSESSMENT: BI-RADS BI-RADS 2 - Benign Findings RECOMMENDATION: Routine annual mammography screening. 1 year F/U This examination should not preclude the clinical evaluation of a suspicious palpable abnormality. This patient's information was entered into a reminder system with a target due date for their next mammogram.
[2023-10-01 14:59] LABS: MANUAL DIFF FLAG NO
[2023-10-01 15:25] LABS: Basophils Absolute Auto 0.1 X10*3/uL (0.0-0.2); Basophils Percent Auto 0.7 % (0-2); Eosinophils Absolute Auto 0.2 X10*3/uL (0.0-0.4); Eosinophils Percent Auto 2.4 % (0-4); Hematocrit 33.4 % (37.0-47.0); Hemoglobin 10.7 g/dl (12.0-16.0); Imm Gran Abs Auto 0.02 X10*3/uL (0.00-0.03); Imm Gran Pct Auto 0.3 % (0.0-0.4); Lymphocytes Absolute Auto 1.7 X10*3/uL (1.2-4.9); Lymphocytes Percent Auto 23.2 % (20-40); Mean Corpuscular Hemoglobin 29.1 pg (27.0-33.0); Mean Corpuscular Volume 90.8 fL (80.0-98.0); Mean Platelet Volume 9.9 fL (9.4-12.3); Monocytes Absolute Auto 0.5 X10*3/uL (0.1-1.2); Monocytes Percent Auto 6.9 % (2-11); Neutrophils Percent Auto 66.5 % (45-73); Platelet Count 332 X10*3/uL (160-400); Red Blood Count 3.68 X10*6/uL (4.20-5.50); Red Cell Distribution Width 14.4 % (11.0-16.0); White Blood Count 7.5 X10*3/uL (4.8-10.8)
[2023-10-01 15:48] LABS: Iron 34 mcg/dL (30-160); Percent Iron Saturation 12 % (15-50); Total Iron Binding Capacity 284 mcg/dL (228-428); Unsaturated Iron Binding 250 ug/dL
== END 2023-10-01 10:00 | disposition home or self-care (01) ==
LOC: HO.MAMMO 09:59
PROVIDERS: PCP Internal Medicine; Visit Provider Internal Medicine
DX: Z12.31 Encounter for screening mammogram for malignant neoplasm of breast (principal); D64.9 Anemia, unspecified; N30.10 Interstitial cystitis (chronic) without hematuria
CPT/HCPCS: 36415; 51700; 51701; 77063; 77067; 83540; 85025

== ENCOUNTER → 2023-10-01 10:00 | Outpatient (BNV) | payer OTHER, SELFPAY | PROVIDERS: PCP Internal Medicine; Visit Provider Radiology Diagnostic Radiology | DX: Z12.31 Encounter for screening mammogram for malignant neoplasm of breast (principal) | CPT/HCPCS: 77063; 77067 ==

== ENCOUNTER 2023-10-07 13:15 | Outpatient (AMB) | payer OTHER, MEDICAID, SELFPAY ==
--- NOTE | 2023-10-07 13:24 | A.OFFPC_ITS ---
Vital Signs 10/07/23 13:25 Height 5 ft 1 in Weight 155 lb BMI 29.3 BP 112/80 Blood Pressure Location Lt brachial Position Sitting Pulse 61 Pulse Source Pulse Oximeter Pulse Oximetry (%) 97 Oxygen Delivery Method Room Air Intake Visit Reasons: lipids Intake Note: Patient here for a follow lipids Residential Carpenter Required: No Accompanied by: Self / Same As Patient Allergies phentermine Allergy (Intermediate, Verified 10/07/23 14:05) Palpitations Medication List - Last Reconciled 10/07/23 by Mary Jo Conteh MD acetaminophen 500 mg PO QID PRN 10 days albuterol sulfate 90 mcg/actuation 2 puffs inhalation Q6H PRN alcohol swabs (Alcohol Prep Pads) 1 pad topical TID 30 days blood sugar diagnostic (FreeStyle Lite Strips) to test 2 to 3 times a day as directed blood-glucose meter (FreeStyle Lite Meter kit) As directed calcium citrate 500 mg PO BID cholecalciferol (vitamin D3) 25 mcg PO DAILY 90 days epinephrine IM folic acid 1 mg PO DAILY 90 days lancets (HubbubStyle Lancets) Use 1 lancet once a day lancets (Pure Comfort Safety Lancets) As directed metoprolol succinate ER 25 mg PO DAILY 90 days omeprazole 20 mg PO DAILY 90 days oxycodone 5 mg PO Q6H PRN syringe with needle (IkerChem Luer Lock Syringe with needle) As directed Tobacco use date assessed: 12/27/22 Fall risk assessment: No Falls in past year Last assessed Fall Risk: 10/07/23 Dental Screening Dental Screen Date: 10/07/23 Did you have a dental visit in the last 12 months?: Yes Did you have a dental problem in the last 6 months where you did not have access to dental care?: No Was dental information given to patient?: Patient has dentist HPI HPI Comments History of Present Illness Details This is a 63-year-old female with iron-deficiency anemia and pure hypercholesterolemia comes today for follow-up on recent labs. Anemia stable with no active bleeding. Elevated cholesterol with no need for statin and was advised a low cholesterol diet. No chest pain or shortness of breath. [facility] Medical History (Updated 10/07/23 @ 14:21 by Mary Jo Conteh MD) Hepatomegaly Needle exposure Microscopic hematuria Murmur Frequent UTI Iron deficiency anemia Dysuria Labile blood glucose Anemia Dyslipidemia Pernicious anemia Pre-op examination Cervicalgia of avwxytvu-mvhgwhh-rvynw region Vitamin D deficiency Osteoporosis 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 Asthma Paget's disease Fibromyalgia Nontoxic multinodular goiter Osteoarthritis HTN (hypertension) Surgical History History of excision of mass (08/21/23) History of removal of laparoscopic gastric banding device History of cystoscopy History of lobectomy of thyroid Mass of right parotid gland H/O laparoscopic adjustable gastric banding Hx of lithotripsy History of dilation and curettage History of delivery Hx of tonsillectomy Hx of gastric bypass Family History Mother Diabetes HTN (hypertension) Father Pancreatic cancer Diabetes HTN (hypertension) Maternal Grandmother Myocardial infarction Cancer Brother Pancreatic cancer Sister Uterine cancer Social History Household Members: Family Housing: House Are you a primary patient care coordinator to a significant other at home: No Do you presently have visiting nurse or other home services: No Alcohol intake: never Patient Tobacco Use Status: Former Tobacco user Tobacco use type: Cigarette e-Cigarette/Vaping Use: Never Used Second Hand Smoke Exposure: No service: No Current occupational status: unemployed and disabled Sexual orientation: Straight/Heterosexual Gender identity: Female Cognitive needs: No Hearing needs: No Vision needs: Yes (glasses) Female Reproductive History Menstrual Age of Menarche: 10 Questionnaire Thrive Questionnaire Date Thrive assessed: 03/05/23 AUREA-7 AMB Questionnaire AUREA-7 Date AUREA - 7 assessed: 12/27/22 Source: Developed by Drs. Maxx Hayden, Raquel Cervantes, Jourdan Ruano and colleagues, with an educational milady from [employer]. Review of Systems Const All systems reviewed & are unremarkable except as noted in HPI and below Eyes Reports no additional complaints, Denies change in vision and Denies other visual disturbances Card Denies chest pain at rest, Denies chest pain with activity, Denies edema, Denies irregular heart rhythm, Denies claudication, Denies dyspnea, Denies dyspnea on exertion, Denies orthopnea, Denies paroxysmal nocturnal dyspnea and Denies slow heart rate Resp Denies cough, Denies dyspnea and Denies dyspnea on exertion GI Denies abdominal pain, Denies change in bowel habits, Denies excessive flatus, Denies nausea and Denies vomiting Denies urinary incontinence, Denies urinary hesitancy and Denies urinary urgency Musc Denies abnormal gait, Denies atrophy, Denies deformity and Denies limited range of motion Skin/Breast Denies bleeding lesions, Denies changing lesions and Denies rash Neuro Denies abnormal gait and Denies lack of coordination Physical exam (Primary Care) Vital Signs: Last Vital Signs Pulse 61 10/07/23 13:25 BP 112/80 10/07/23 13:25 Pulse Ox 97 10/07/23 13:25 Oxygen Delivery Method Room Air 10/07/23 13:25 BMI result Body Mass Index 29.3 Tobacco/Smoking Status: Tobacco use Status Tobacco use date assessed 12/27/22 10/07/23 13:33 Patient Tobacco Use Status Former Tobacco user 10/07/23 13:33 Tobacco use type Cigarette 10/07/23 13:33 e-Cigarette/Vaping Use Never Used 10/07/23 13:33 Thrive Assessment: Date of Thrive Assessment Date Thrive assessed 03/05/23 10/07/23 13:33 Eyes General: appearance normal, both eyes and all related structures Eyelids: Yes eyelids normal Conjunctivae: conjunctivae normal Neck Neck: Yes normal visual inspection and Yes supple Resp Effort & Inspection: normal respiratory effort Auscultation: clear to auscultation bilaterally Cardio Jugular venous distension: no JVD Rate: regular rate Rhythm: regular rhythm Heart sounds: S1 normal heart sound present and S2 normal heart sound present Extrem General: Yes full ROM Assessment and Plan Assessment & Plan (1) Pure hypercholesterolemia: Code(s): E78.00 - Pure hypercholesterolemia, unspecified Plan: Advise a low cholesterol diet. (2) Iron deficiency anemia: Code(s): D50.9 - Iron deficiency anemia, unspecified Qualifiers: Iron deficiency anemia type: inadequate dietary iron intake Qualified Code(s): D50.8 - Other iron deficiency anemias Plan: Monitor hemoglobin. Orders: Orders Vitamin B12 and Folate 5 Months E53.8 - Deficiency of other specified B group vitamins Vitamin D 25-OH Total 5 Months E55.9 - Vitamin D deficiency, unspecified Complete Blood Count Auto Diff 5 Months D64.9 - Anemia, unspecified IRON PROFILE 5 Months D64.9 - Anemia, unspecified Lipid Panel 5 Months E78.5 - Hyperlipidemia, unspecified Comprehensive [place]. Panel Fast 5 Months G89.4 - Chronic pain syndrome XR chest 2V Today R06.00 - Dyspnea, unspecified Medications: New Ventolin HFA 90 mcg/actuation (albuterol sulfate) 2 puffs inhalation Q6H 30 days PRN 18 grams 1RF shortness of breath or wheezing NS J45.909 - Unspecified asthma, uncomplicated Discontinued oxycodone Partial Fill upon patient request. Discontinued Reason: Patient Completed Course 5 mg PO Q6H PRN 15 tabs 0RF pain (scale score 7-10) Coding Level of Care Code Est Pt Level 3 (34625) Diagnoses Pure hypercholesterolemia E78.00 Iron deficiency anemia secondary to inadequate dietary iron intake D50.8 Iron deficiency anemia type: inadequate dietary iron intake Time Spent (min) 19
[2023-10-07 13:25] VITALS: BP 112/80; PULSE 61; O2SAT 97; BMI 29.3
== END 2023-10-07 14:23 | disposition home or self-care (01) ==
PROVIDERS: PCP Internal Medicine; Visit Provider Internal Medicine
DX: E78.00 Pure hypercholesterolemia, unspecified (principal); D50.8 Other iron deficiency anemias
CPT/HCPCS: 99213

== ENCOUNTER 2023-10-07 14:38 | Outpatient (REF) | payer OTHER, SELFPAY ==
--- NOTE | ~2023-10-07 | XR_ITS ---
EXAMINATION: XR CHEST CLINICAL INFORMATION: Dyspnea. COMPARISON: Radiographs dated 01/25/2023 TECHNIQUE: Frontal and lateral views of the chest were obtained. FINDINGS: The heart, great vessels, pulmonary vasculature and mediastinum are normal. The lungs show no focal infiltrate, effusion or pneumothorax. There is no acute osseous abnormality. XR/XR chest 2V IMPRESSION: No active cardiopulmonary disease.
== END 2023-10-07 14:39 | disposition home or self-care (01) ==
LOC: HO.XRAY 14:38
PROVIDERS: PCP Internal Medicine; Visit Provider Internal Medicine
DX: R06.00 Dyspnea, unspecified (principal)
CPT/HCPCS: 71046

== ENCOUNTER 2023-11-08 13:52 | Outpatient (AMB) | payer OTHER, SELFPAY ==
--- NOTE | 2023-11-08 14:17 | MHC.OFFVIS ---
Intake Intake Visit Reasons: Transfer of care/IC follow up Intake Note: Patient is Present for Follow Up Urology Medication: None Antibiotic Allergies: None Blood Thinners: None Allergies phentermine Allergy (Intermediate, Verified 11/08/23 14:18) Palpitations Medication List - Last Reconciled 11/08/23 by Rishbah Flowers MD acetaminophen 500 mg PO QID PRN 10 days albuterol sulfate 90 mcg/actuation 2 puffs inhalation Q6H PRN alcohol swabs (Alcohol Prep Pads) 1 pad topical TID 30 days ascorbic acid (vitamin C) 1 g PO DAILY 90 days blood sugar diagnostic (FreeStyle Lite Strips) to test 2 to 3 times a day as directed blood-glucose meter (FreeStyle Lite Meter kit) As directed calcium citrate 500 mg PO BID cholecalciferol (vitamin D3) 25 mcg PO DAILY 90 days epinephrine IM folic acid 1 mg PO DAILY 90 days incontinence pad, liner, disp As directed lancets (FreeStyle Lancets) Use 1 lancet once a day lancets (Pure Comfort Safety Lancets) As directed methenamine hippurate 1 g PO DAILY 90 days metoprolol succinate ER 25 mg PO DAILY 90 days omeprazole 20 mg PO DAILY 90 days syringe with needle (LogRhythm Luer Lock Syringe with needle) As directed Ventolin HFA 90 mcg/actuation (albuterol sulfate) 2 puffs inhalation Q6H PRN 30 days NS HPI HPI Comments History of Present Illness Details Maura was a pleasant [place] Citizen-speaking female. She is a patient of Dr Conteh. She seen for the following urologic conditions - interstitial cystitis - recurrent tract infection Reporting fatigue. States going to the emergency room following this appointment Recurrent urinary tract infection UA in office today with positive leuks but negative nitrite Has evidence of cystitis and prior urinary tract infection Concomitant diabetes Trial suppression Interstitial cystitis Prior cystoscopy with hydrodistention. 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 Asthma Paget's disease Fibromyalgia Nontoxic multinodular goiter Osteoarthritis HTN (hypertension) Surgical History History of excision of mass (08/21/23) History of removal of laparoscopic gastric banding device History of cystoscopy History of lobectomy of thyroid Mass of right parotid gland H/O laparoscopic adjustable gastric banding Hx of lithotripsy History of dilation and curettage History of delivery Hx of tonsillectomy Hx of gastric bypass Family History Mother Diabetes HTN (hypertension) Father Pancreatic cancer Diabetes HTN (hypertension) Maternal Grandmother Myocardial infarction Cancer Brother Pancreatic cancer Sister Uterine cancer Social History Household Members: Family Housing: House Are you a primary care director rn to a significant other at home: No Do you presently have visiting nurse or other home services: No Alcohol intake: never Patient Tobacco Use Status: Former Tobacco user Tobacco use type: Cigarette e-Cigarette/Vaping Use: Never Used Second Hand Smoke Exposure: No service: No Current occupational status: unemployed and disabled Sexual orientation: Straight/Heterosexual Gender identity: Female Cognitive needs: No Hearing needs: No Vision needs: Yes (glasses) Female Reproductive History Menstrual Age of Menarche: 10 Review of Systems Const Denies chills and Denies fever(s) Card Reports no additional complaints and Denies syncope Resp Denies cough GI Denies abdominal pain and Denies heartburn Reports as per HPI and Denies change in libido Neuro Denies syncope Psych Denies change in libido Endo Denies change in libido Physical Exam Const General: cooperative, healthy appearing, comfortable and no acute distress Orientation/consciousness: patient oriented x3 HEENT Face and sinus: Yes normal facial exam Mouth: moist mucous membranes Neck Neck: Yes normal visual inspection, Yes full ROM and Yes trachea midline Chest Chest palpation & inspection: normal inspection of the chest Resp Effort & Inspection: normal respiratory effort, able to speak in complete sentences and no respiratory distress GI Inspection: Yes normal to inspection Back/Spine/Pelvis Cervical Spine: normal cervical lordosis Thoracic/Lumbar Spine: thoracic and lumbar spine normal to inspection Skin General skin exam: no rashes or lesions noted Neuro General: patient oriented x3, gait normal, tone normal and moves all extremities Extrem General: Yes normal to inspection and Yes capillary refill normal Results AMB Urinalysis, Automated UA Leukoctes 500 Denilson/uL Last Edit by Ramandeep Madison A on 11/08/23 15:25 UA Nitrite Negative Last Edit by Ramandeep Madison, A on 11/08/23 15:25 UA Urobilinogen 0.2 mg/dL Last Edit by Ramandeep Madison, A on 11/08/23 15:25 UA Protein 100 mg/dL Last Edit by Ramandeep Madison, A on 11/08/23 15:25 UA pH 6.0 Last Edit by Ramandeep Madison, A on 11/08/23 15:25 UA Blood 200 Brady/uL Last Edit by Ramandeep Madison, A on 11/08/23 15:25 UA Specific [place] 1.020 Last Edit by Ramandeep Madison, A on 11/08/23 15:25 UA Ketone Positive Last Edit by Ramandeep Madison A on 11/08/23 15:25 UA Bilirubin 1 mg/dL Last Edit by Ramandeep Madison, A on 11/08/23 15:25 UA Glucose 0 mg/dL Last Edit by Ramandeep Madison A on 11/08/23 15:25 Results Reviewed Results Reviewed: Laboratory Last Values Urine pH (Auto) 6.0 11/08/23 15:24 Specific [place] (Auto) 1.020 11/08/23 15:24 Urine Protein (Auto) 100 mg/dL 11/08/23 15:24 Glucose (UA)(Auto) 0 mg/dL 11/08/23 15:24 Urine Ketones (Auto) Positive 11/08/23 15:24 Urine Blood (Auto) 200 Brady/uL 11/08/23 15:24 Urine Nitrite (Auto) Negative 11/08/23 15:24 Urine Bilirubin (Auto) 1 mg/dL 11/08/23 15:24 Urine Urobilinogen (Auto) 0.2 mg/dL 11/08/23 15:24 Leukocyte Esterase (Auto) 500 [place]il[place]/uL 11/08/23 15:24 Assessment & Plan Assessment & Plan (1) Acute pyelonephritis: Code(s): N10 - Acute pyelonephritis (2) Interstitial cystitis: Code(s): N30.10 - Interstitial cystitis (chronic) without hematuria Plan Start chemoprophylaxis Orders: Orders Urine Culture 11/08/23 N39.0 - Urinary tract infection, site not specified AMB Urinalysis Automated 11/08/23 Z13.9 - Encounter for screening, unspecified, N39.0 - Urinary tract infection, site not specified Medications: New methenamine hippurate 1 g PO DAILY 90 tabs 1RF 90 days N30.10 - Interstitial cystitis (chronic) without hematuria, N39.0 - Urinary tract infection, site not specified ascorbic acid (vitamin C) 1 g PO DAILY 90 tabs 1RF 90 days N30.10 - Interstitial cystitis (chronic) without hematuria, N39.0 - Urinary tract infection, site not specified Patient Instructions: Imaging studies, laboratory and physical exam results were discussed and reviewed in detail. No major barriers to patient understanding were identified. An opportunity to ask questions regarding the treatment plan was provided. All questions were answered. The patient expressed understanding and agreement with the above treatment plan. The patient is aware they should contact our office by phone for worsening of their current condition or the appearance of new urologic symptoms. Compliance is encouraged with any medications and followup testing that is ordered. It is a privilege to participate in the urologic care of your patient. If you have any questions or concerns regarding treatment for the above conditions, or other urologic issues, please do not hesitate to contact me. The office telephone contact is [phone]. This note is constructed using voice recognition software. While every effort has been made to ensure accuracy walking dragline operator errors may have been included. Yours sincerely, Dr Rishabh Flowers MD, [facility] - Urology Providers of Expert, Compassionate Care for the Genitourinary System Coding Level of Care Code Est Pt Level 4 (62906) Diagnoses Acute pyelonephritis N10 Interstitial cystitis N30.10
== END 2023-11-08 15:32 | disposition home or self-care (01) ==
PROVIDERS: PCP Internal Medicine; Visit Provider Urology
DX: N10 Acute pyelonephritis (principal); N30.10 Interstitial cystitis (chronic) without hematuria
CPT/HCPCS: 99214

== ENCOUNTER 2023-11-08 13:52 | Outpatient (REF) | payer OTHER, SELFPAY | END 2023-11-08 13:53 | disposition home or self-care (01) | LOC: HO.LAB 13:52 | PROVIDERS: PCP Internal Medicine; Visit Provider Urology | DX: N30.10 Interstitial cystitis (chronic) without hematuria (principal); N10 Acute pyelonephritis; Z79.899 Other long term (current) drug therapy | CPT/HCPCS: 81003; 87086; 87088; 87186; 99212 ==

== ENCOUNTER 2023-11-08 15:37 | Inpatient (IN) | payer OTHER, SELFPAY ==
--- NOTE | ~2023-11-08 | XR_ITS ---
EXAMINATION: XR CHEST CLINICAL INFORMATION: Dizziness. COMPARISON: Chest x-ray October 07, 2023 TECHNIQUE: 2 views of the chest were obtained. FINDINGS: No significant abnormality is noted involving the heart, lungs, mediastinum, bony thorax or soft tissues. XR/XR chest 2V IMPRESSION: Unremarkable examination.
--- NOTE | ~2023-11-08 | CT_ITS ---
EXAMINATION: CT ABDOMEN AND PELVIS WITH CONTRAST CLINICAL INFORMATION: Generalized abdominal pain COMPARISON: 08/28/2023 TECHNIQUE: Multidetector volumetric images were obtained from the superior aspect of the liver through the pubic symphysis following administration 85 mL of Omnipaque 350 intravenous contrast. Sagittal and coronal reformatted images were obtained on the technologist's workstation. Oral contrast: No This CT examination was performed using dose optimization techniques as appropriate, variously including the following: *Automated exposure control *Adjustment of mA and/or kV according to patient size (this includes techniques or standardized protocols for targeted exams where dose is matched to indication/reason for exam; i.e. extremities or head) *Use of iterative reconstruction technique DLP: 618 mGy-cm FINDINGS: LUNG BASES: The visualized lung bases are unremarkable. LIVER, GALLBLADDER, AND BILIARY TREE: Coarse calcific aeration anterolaterally right lobe. Mild prominence of the biliary tree similar. No choledocholithiasis. No discrete lesion. Clips consistent with cholecystectomy. PANCREAS: Unremarkable. SPLEEN: Splenule noted once again. ADRENAL GLANDS: Unremarkable. KIDNEYS AND URETERS: Within the right midpole kidney posteriorly, there is a approximately 2 cm decreased ill-defined attenuation is since baseline. The right urinary collecting system demonstrates mild hyperenhancement especially proximally. No stones or hydronephrosis. No left-sided abnormality. No perinephric abnormality. BLADDER: Unremarkable. GASTROINTESTINAL TRACT: There is evidence for a Miguel-en-Y gastric bypass surgical changes. At the jejunojejunal anastomosis, there appears to be intussusception causing mild dilatation of the proximal Miguel-en-Y loop. Polyps measure up to 3.8 cm. Distal bowel loops are decompressed. There are no fluid collections or inflammatory changes seen. ABDOMINAL WALL: No significant hernia is appreciated. LYMPH NODES: Normal. VASCULAR: Unremarkable. PELVIC VISCERA: Unremarkable. OSSEOUS STRUCTURES: Unremarkable. CT/CT abdomen pelvis w IV con IMPRESSION: Intussusception at the jejunojejunal anastomosis with mild dilatation of the proximal Miguel-en-Y loop. Please see meehan images. Focal abnormality right kidney suspicious for focal pyelonephritis with possible ureteritis as above. Follow-up recommended to ensure resolution and to exclude any new abnormality. Fleischner guidelines were followed.
--- NOTE | 2023-11-08 16:00 | ED.GENADULT ---
HPI - General Adult General Chief complaint: Upper Respiratory Symptoms Stated complaint: Dizziness/Flu like symptoms Time Seen by Provider: 11/08/23 16:50 History of Present Illness HPI narrative: 63 y/o F patient; PMH HTN, HLD, hx gastric lap band with removal 1 year ago (Dr. Loya), hx nephrolithiasis with lithotripsy approx 3 years ago; presents from home with report of two weeks of generalized abdominal pain radiating from her bilateral back into her stomach. Associated with nausea/NBNB vomiting and generalized fatigue. She spoke with her PCP recently who referred her to a Urologist but she has not yet followed up. She notes + frequency, dysuria, and hematuria. She otherwise denies: chest pain, diarrhea. She also states for the last 3 days she has been experiencing more shortness of breath and a dry cough. Related Data Home Medications Medication Instructions Recorded Confirmed albuterol sulfate 90 mcg/actuation 2 puff inhalation Q6H PRN 08/22/20 11/08/23 aerosol inhaler Shortness Of Breath Or Wheezing calcium citrate 500 mg PO BID 08/17/21 11/08/23 lancets 30 gauge (Pure Comfort #100 ea 08/17/21 11/08/23 Safety Lancets) pravastatin 20 mg tablet 20 mg PO DAILY 11/08/23 11/08/23 Previous Rx's Medication Instructions Recorded folic acid 1 mg tablet 1 mg PO DAILY 90 days #90 tabs 02/09/22 metoprolol succinate 25 mg 25 mg PO DAILY 90 days #90 tabs 04/12/22 tablet,extended release 24 hr blood-glucose meter (FreeStyle #1 ea 08/14/22 Lite Meter kit) cholecalciferol (vitamin D3) 25 25 mcg PO DAILY 90 days #90 caps 08/14/22 mcg (1,000 unit) capsule acetaminophen 500 mg capsule 500 mg PO QID PRN pain 10 days #30 11/28/22 caps syringe with needle 3 mL 22 gauge #1 ea 01/14/23 x 1 (Nuubo Luer Lock Syringe with needle) omeprazole 20 mg capsule,delayed 20 mg PO DAILY 90 days #90 caps 07/30/23 release blood sugar diagnostic (FreeStyle #50 ea 09/27/23 Lite Strips) lancets 28 gauge (FreeStyle #100 ea 09/27/23 Lancets) incontinence pad, liner, disp #156 ea 10/29/23 ascorbic acid (vitamin C) 1,000 mg 1 g PO DAILY 90 days #90 tabs 11/08/23 tablet methenamine hippurate 1 gram tablet 1 g PO DAILY 90 days #90 tabs 11/08/23 Allergies Allergy/AdvReac Type Severity Reaction Status Date / Time phentermine Allergy Intermediate Palpitation Verified 11/08/23 14:18 s Review of Systems Review of Systems: Yes all other systems are reviewed and are negative [facility] Past Medical History Attestation statement: The following information was validated with the patient. 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 Asthma Paget's disease Fibromyalgia Nontoxic multinodular goiter Osteoarthritis HTN (hypertension) Surgical History History of excision of mass (08/21/23) History of removal of laparoscopic gastric banding device History of cystoscopy History of lobectomy of thyroid Mass of right parotid gland H/O laparoscopic adjustable gastric banding Hx of lithotripsy History of dilation and curettage History of delivery Hx of tonsillectomy Hx of gastric bypass Family History Family History Mother Diabetes HTN (hypertension) Father Pancreatic cancer Diabetes HTN (hypertension) Maternal Grandmother Myocardial infarction Cancer Brother Pancreatic cancer Sister Uterine cancer Social History Social History Household Members: Family Housing: House Are you a primary caregivers homecare to a significant other at home: No Do you presently have visiting nurse or other home services: No Alcohol intake: never Patient Tobacco Use Status: Former Tobacco user Tobacco use type: Cigarette Smoked in Last 30 Days: No e-Cigarette/Vaping Use: Never Used Second Hand Smoke Exposure: No Use of substances other than those prescribed or required for medical reasons: No Advance Directives: No Advance Directives Information Provided: No Nutrition Risks: No Nutritional Risk service: No Current occupational status: unemployed and disabled Sexual orientation: Straight/Heterosexual Gender identity: Female Cognitive needs: No Hearing needs: No Vision needs: Yes (glasses) Physical Exam ED Vital Signs: Vital Signs - 24 hr 11/08/23 16:01 11/08/23 21:23 11/08/23 21:26 Temperature 97.9 F 102.0 F H Pulse Rate 93 112 H Respiratory Rate 18 20 Blood Pressure 116/79 126/78 Pulse Oximetry 96 98 98 Oxygen Delivery Method Room Air Room Air Room Air 11/08/23 22:17 11/08/23 23:19 Temperature 99.0 F Pulse Rate 98 114 H Respiratory Rate 16 18 Blood Pressure 106/60 Pulse Oximetry 94 Oxygen Delivery Method Room Air BMI result Body Mass Index 30.3 Patient is afebrile and hemodynamically stable. Const General: cooperative HENMT Head: Yes atraumatic Eyes General: appearance normal, both eyes and all related structures Pupils: Equal, round and reactive pupils present EOM: EOMs intact bilaterally Neck Neck: Yes full ROM, Yes supple and No tender Chest Chest palpation & inspection: normal inspection of the chest Resp Effort & Inspection: normal respiratory effort, able to speak in complete sentences and Actively coughing Auscultation: clear to auscultation bilaterally Cardio Rate: regular rate Rhythm: regular rhythm Peripheral pulses: Peripheral pulses 2+ throughout GI Inspection: No Abdominal wall edema Palpation (GI): Soft to palpation, not firm, nontender, no guarding and not rigid General: Yes no CVA tenderness Back/Spine/Pelvis Back: no CVA tenderness Neuro Cranial nerves: Yes Equal, round and reactive pupils present Course Course Course Narrative: RME performed by Brigida Diaz PA-C. Patient is a 63 year old assigned female at presenting to the emergency department with nausea, vomiting, dizziness x 2 weeks. Labs, imaging, and swabs ordered. Patient placed back in the waiting room pending room availability and results. Reevaluation(s) Reevaluation #1: Patient is afebrile and hemodynamically stable. Reviewed triage work up - added lipase, CT Abdomen/Pelvis. Provided 1L IVF and Zofran 4mg IV. Labs reviewed: Leukocytosis 17.7k. Neutrophil predominance. Patient meeting SIRS, but not sepsis criteria at this time due to HR 93BPM and leukocytosis. Added order for lactic acid. Time: 17:43 Reevaluation #2: Lactic acid 2.8. Ordered blood cultures and activated sepsis alert. Ordered Cefepime 2g IV with concern for pyelonephritis. UA notable for infection. Time: 18:30 Reevaluation #3: CT Abdomen/Pelvis notable for right sided focal pyelonephritis with possible ureteritis. Also notable for intussusception at the jejunojejunal anastomosis with mild dilation of the proximal fitikhar-end-y loop. Discussed with [facility] surgery who recommend transfer to [facility] where patient had bariatric surgery performed previously. Discussed with surgical team at [facility] - advise that the finding of intussuception is likely incidental. Especially without thickening of the bowel or pneumotosis. Recommend medical admission at [facility]. Re-discussed with [facility] surgical team at [phone] - pending response at 0. Time: 19:43 Additional Reevaluation(s): [facility] surgical services continues to decline to accept patient to this hospital. Re-discussed with [facility] - patient accepted by surgical service. However there are no medical beds available tonight, patient would be ED to ED transfer. Discussed with transfer services, [facility] ED is at capacity and decline transfer on basis of capacity in the ED. Option would only be to hold patient in the [facility] emergency department until late afternoon in the case that a bed might become available at [facility] and the patient could be transferred ED to inpatient. Re-discussed with surgical team at [facility] - pending response. Discussed with hospitalist at [facility] who is able to accept the patient with [facility] surgical service consultation. Will sign out to next provider pending [facility] surgical service response. Medications Administered Generic Name Dose Route Start Last Admin Trade Name Freq PRN Reason Stop Dose Admin Ceftriaxone Sodium 1 gm/ 50 mls @ 100 mls/hr 11/08/23 23:00 11/08/23 23:52 Sodium Chloride IV Infused Q24H BEATRICE Infusion Sodium Chloride 1,500 mls @ 999 mls/hr 11/08/23 23:14 11/08/23 23:38 Ns IVCONT 11/09/23 00:44 999 mls/hr .Q1H31M ONE Administration Sodium Chloride 3 ml 11/09/23 00:00 11/09/23 00:11 0.9 % Sodium Chloride Flush 3 Ml Syringe IVFLUSH Not Given QSHIFT BEATRICE Discontinued Medications Generic Name Dose Route Start Last Admin Trade Name Freq PRN Reason Stop Dose Admin Albuterol Sulfate 2.5 mg 11/08/23 22:04 11/08/23 22:15 Albuterol Sulfate (0.083%) 2.5 Mg/3 Ml Vial.Neb INHALE 11/08/23 22:05 2.5 mg ONCE ONE Administration Sodium Chloride 1,000 mls @ 999 mls/hr 11/08/23 17:15 11/08/23 21:30 Ns IV 11/08/23 18:15 Infused .Q1H1M BEATRICE Infusion Cefepime HCl 2 gm/ Sodium 50 mls @ 100 mls/hr 11/08/23 19:33 11/08/23 21:12 Chloride IV 11/08/23 20:02 Infused ONCE ONE Infusion Sodium Chloride 1,000 mls @ 999 mls/hr 11/08/23 23:13 11/08/23 23:37 Ns IVCONT 11/09/23 00:13 999 mls/hr .Q1H1M ONE Administration Iohexol 85 ml 11/08/23 18:28 11/08/23 18:29 Iohexol 350 Mg/Ml 100 Ml Infus..Btl IV 11/08/23 18:29 85 ml ONCE ONE Administration Ondansetron HCl 4 mg 11/08/23 17:05 11/08/23 18:12 Ondansetron Hcl 4 Mg/2 Ml Vial IVPUSH 11/08/23 17:06 4 mg ONCE ONE Administration Medical Decision Making Medical Decision Making MDM Narrative: - after a prolonged discussion between Dr. Coffey, Dr. Wagner, LILIAM Kenney from bariatric surgery, ED physician from [facility] , and surgical team/bariatrics from [facility], up it was determined that patient will be admitted here at [facility], pending transfer to [facility] once a bed becomes available for the patient. If the patient decompensates while waiting for a bed, our bariatric team will assist Differential Diagnosis Differential Diagnoses: The differential diagnosis associated with the presentation includes ( pyelonephritis, intussusception, UTI) Admission/Observation Consideration of admission/observation: Escalation of care including admission/observation considered Consult Healthcare Provider Management of the patient was discussed with: Hospitalist and [employer] Professor Lab Data MDM Lab Attestation statement: I reviewed the patient's lab results. 11/08/23 16:23 11/08/23 16:23 Labs: Lab Results 11/08/23 11/08/23 11/08/23 Range/Units 16:19 16:23 19:04 WBC 17.7 H (4.8-10.8) X10*3/uL RBC 3.86 L (4.20-5.50) X10*6/uL Hgb 11.2 L (12.0-16.0) g/dl Hct 33.9 L (37.0-47.0) % MCV 87.8 (80.0-98.0) fL MCH 29.0 (27.0-33.0) pg MCHC 33.0 (31.0-35.0) g/dl RDW 14.1 (11.0-16.0) % Plt Count 435 H D (160-400) X10*3/uL MPV 9.1 L (9.4-12.3) fL Immature Gran % (Auto) 0.6 H (0.0-0.4) % Neut % (Auto) 84.9 H (45-73) % Lymph % (Auto) 7.6 L (20-40) % [place] % (Auto) 6.8 (2-11) % Eos % (Auto) 0.0 (0-4) % Baso % (Auto) 0.1 (0-2) % Lymph # (Auto) 1.4 (1.2-4.9) X10*3/uL [place] # (Auto) 1.2 (0.1-1.2) X10*3/uL Eos # (Auto) 0.0 (0.0-0.4) X10*3/uL Baso # (Auto) 0.0 (0.0-0.2) X10*3/uL Abs Immat Gran (auto) 0.10 H (0.00-0.03) X10*3/uL Absolute Neuts (auto) 15.1 H (2.0-8.3) x10*3/uL Absolute Nucleated RBC 0.000 (0.0-0.012) X10*3/uL Nucleated RBC % (auto) 0.0 (0.0-0.2) /100WBC PT 13.5 H (11.1-13.3) SEC INR 1.1 (0.9-1.1) APTT 30.1 (26.0-36.4) SEC Sodium 134 L (135-145) mmol/L Potassium 3.7 (3.3-5.1) mmol/L Chloride 101 (96-108) mmol/L Carbon Dioxide 23 (22-29) mmol/L Anion Gap 14 (12-20) BUN 18 H (9-16) mg/dL Creatinine 0.79 (0.5-1.4) mg/dL Estim Creat Clear Calc 62.1 Estimated GFR > 60 Random Glucose 137 H (60-115) mg/dL Lactic Acid 2.8 H* (0.5-2.0) mmol/L Lactic Acid F/U @ 2Hr (0.5-2.0) mmol/L Calcium 9.5 D (8.4-10.2) mg/dL Magnesium 2.0 (1.6-2.6) mg/dL Total Bilirubin 1.2 H (0.0-1.0) mg/dL AST 68 H (5-31) U/L ALT 54 H (0-31) U/L Alkaline Phosphatase 104 (39-117) U/L Troponin I High Sens 9.8 (<3.5-17.0) ng/L Total Protein 7.8 (6.5-8.0) g/dL Albumin 4.0 (3.5-5.0) g/dL Lipase 17 (8-78) U/L Urine Color Dark Yellow Urine Appearance Turbid Urine pH 5.5 (5.0-9.0) Ur Specific Busby 1.020 (1.005-1.025) Urine Protein 100 (2+) H (Neg-Trace) mg/dL Urine Glucose (UA) Negative (Negative) mg/dL Urine Ketones Trace (Negative) mg/dL Urine Blood Large (3+) H (Negative) Urine Nitrite Negative (Negative) Ur Leukocyte Esterase Large (3+) H (Negative) Urine RBC 11-20 H (0-2) /HPF Urine WBC >50 H (0-5) /HPF Ur Squamous Epith Cells 11-20 (0-2) /HPF Urine Bacteria 4+ (None Seen) Hyaline Casts 11-20 (0-2) /LPF Influenza Type A (PCR) NEGATIVE (Negative) Influenza Type B (PCR) NEGATIVE (Negative) RSV RNA Qual (PCR) NEGATIVE (Negative) SARS-CoV-2 RNA (RT-PCR) NEGATIVE (Negative) 11/08/23 Range/Units 21:20 WBC (4.8-10.8) X10*3/uL RBC (4.20-5.50) X10*6/uL Hgb (12.0-16.0) g/dl Hct (37.0-47.0) % MCV (80.0-98.0) fL MCH (27.0-33.0) pg MCHC (31.0-35.0) g/dl RDW (11.0-16.0) % Plt Count (160-400) X10*3/uL MPV (9.4-12.3) fL Immature Gran % (Auto) (0.0-0.4) % Neut % (Auto) (45-73) % Lymph % (Auto) (20-40) % Pendleton % (Auto) (2-11) % Eos % (Auto) (0-4) % Baso % (Auto) (0-2) % Lymph # (Auto) (1.2-4.9) X10*3/uL P[place] # (Auto) (0.1-1.2) X10*3/uL Eos # (Auto) (0.0-0.4) X10*3/uL Baso # (Auto) (0.0-0.2) X10*3/uL Abs Immat Gran (auto) (0.00-0.03) X10*3/uL Absolute Neuts (auto) (2.0-8.3) x10*3/uL Absolute Nucleated RBC (0.0-0.012) X10*3/uL Nucleated RBC % (auto) (0.0-0.2) /100WBC PT (11.1-13.3) SEC INR (0.9-1.1) APTT (26.0-36.4) SEC Sodium (135-145) mmol/L Potassium (3.3-5.1) mmol/L Chloride (96-108) mmol/L Carbon Dioxide (22-29) mmol/L Anion Gap (12-20) BUN (9-16) mg/dL Creatinine (0.5-1.4) mg/dL Estim Creat Clear Calc Estimated GFR Random Glucose (60-115) mg/dL Lactic Acid (0.5-2.0) mmol/L Lactic Acid F/U @ 2Hr 0.8 (0.5-2.0) mmol/L Calcium (8.4-10.2) mg/dL Magnesium (1.6-2.6) mg/dL Total Bilirubin (0.0-1.0) mg/dL AST (5-31) U/L ALT (0-31) U/L Alkaline Phosphatase (39-117) U/L Troponin I High Sens (<3.5-17.0) ng/L Total Protein (6.5-8.0) g/dL Albumin (3.5-5.0) g/dL Lipase (8-78) U/L Urine Color Urine Appearance Urine pH (5.0-9.0) Ur Specific Busby (1.005-1.025) Urine Protein (Neg-Trace) mg/dL Urine Glucose (UA) (Negative) mg/dL Urine Ketones (Negative) mg/dL Urine Blood (Negative) Urine Nitrite (Negative) Ur Leukocyte Esterase (Negative) Urine RBC (0-2) /HPF Urine WBC (0-5) /HPF Ur Squamous Epith Cells (0-2) /HPF Urine Bacteria (None Seen) Hyaline Casts (0-2) /LPF Influenza Type A (PCR) (Negative) Influenza Type B (PCR) (Negative) RSV RNA Qual (PCR) (Negative) SARS-CoV-2 RNA (RT-PCR) (Negative) Radiology Impression Discussion of test interpretation with radiology: I have reviewed the radiologist's reading. Radiologist Impression: LUNG BASES: The visualized lung bases are unremarkable. LIVER, GALLBLADDER, AND BILIARY TREE: Coarse calcific aeration anterolaterally right lobe. Mild prominence of the biliary tree similar. No choledocholithiasis. No discrete lesion. Clips consistent with cholecystectomy. PANCREAS: Unremarkable. SPLEEN: Splenule noted once again. ADRENAL GLANDS: Unremarkable. KIDNEYS AND URETERS: Within the right midpole kidney posteriorly, there is a approximately 2 cm decreased ill-defined attenuation is since baseline. The right urinary collecting system demonstrates mild hyperenhancement especially proximally. No stones or hydronephrosis. No left-sided abnormality. No perinephric abnormality. BLADDER: Unremarkable. GASTROINTESTINAL TRACT: There is evidence for a Iftikhar-en-Y gastric bypass surgical changes. At the jejunojejunal anastomosis, there appears to be intussusception causing mild dilatation of the proximal Iftikhar-en-Y loop. Polyps measure up to 3.8 cm. Distal bowel loops are decompressed. There are no fluid collections or inflammatory changes seen. ABDOMINAL WALL: No significant hernia is appreciated. LYMPH NODES: Normal. VASCULAR: Unremarkable. PELVIC VISCERA: Unremarkable. OSSEOUS STRUCTURES: Unremarkable. CT/CT abdomen pelvis w IV con IMPRESSION: Intussusception at the jejunojejunal anastomosis with mild dilatation of the proximal Iftikhar-en-Y loop. Please see meehan images. Focal abnormality right kidney suspicious for focal pyelonephritis with possible ureteritis as above. Follow-up recommended to ensure resolution and to exclude any new abnormality. Discharge Plan Discharge Clinical Impression: Acute pyelonephritis, Intussusception Patient Disposition: Admitted As Inpatient Prescriptions: No Action folic acid 1 mg tablet 1 mg PO DAILY 90 Days Qty: 90 3RF metoprolol succinate 25 mg tablet extended release 24 hr 25 mg PO DAILY 90 Days Qty: 90 1RF cholecalciferol (vitamin D3) 25 mcg (1,000 unit) capsule 25 mcg PO DAILY 90 Days Qty: 90 1RF omeprazole 20 mg capsule,delayed release(DR/EC) 20 mg PO DAILY 90 Days Qty: 90 5RF (DME) FreeStyle Lite Strips Strip See Rx Instructions .ROUTE .MEDSUPPLY Qty: 50 11RF Rx Instructions: to test 2 to 3 times a day as directed (DME) lancets [FreeStyle Lancets] 28 gauge misc See Rx Instructions .ROUTE .MEDSUPPLY Qty: 100 11RF Rx Instructions: Use 1 lancet once a day (DME) incontinence pad, liner, disp Pad See Rx Instructions .Route Qty: 156 11RF Rx Instructions: As directed pravastatin 20 mg tablet 20 mg PO DAILY (DME) blood-glucose meter [FreeStyle Lite Meter] Kit See Rx Instructions .Route Qty: 1 0RF Rx Instructions: As directed (DME) Carepoint Luer Lock Syr-needle 3 mL 22 gauge x 1 syringe See Rx Instructions .Route Qty: 1 1RF Rx Instructions: As directed acetaminophen 500 mg capsule 500 mg PO QID PRN (Reason: pain) 10 Days Qty: 30 0RF albuterol sulfate 90 mcg/actuation HFA aerosol inhaler 2 puff inhalation Q6H PRN (Reason: Shortness Of Breath Or Wheezing) (DME) lancets [Pure Comfort Safety Lancets] 30 gauge misc See Rx Instructions .ROUTE DAILY Qty: 100 Rx Instructions: As directed calcium citrate 250 mg calcium tablet 500 mg PO BID methenamine hippurate 1 gram tablet 1 g PO DAILY 90 Days Qty: 90 1RF ascorbic acid (vitamin C) 1,000 mg tablet 1 g PO DAILY 90 Days Qty: 90 1RF
[2023-11-08 16:01] VITALS: BP 116/79; PULSE 93; RESP 18; TEMP 36.6; O2SAT 96; BMI 30.3
--- NOTE | 2023-11-08 16:02 | ECG_ITS ---
Test Reason : UPPER RESP Blood Pressure : / mmHG Vent. Rate : 094 BPM Atrial Rate : 094 BPM P-R Int : 150 ms QRS Dur : 092 ms QT Int : 410 ms P-R-T Axes : 009 -30 019 degrees QTc Int : 512 ms Normal sinus rhythm Left axis deviation Possible Anterior infarct , age undetermined Abnormal ECG When compared with ECG of 12-FEB-2019 09:43, Vent. rate has increased BY 32 BPM Borderline criteria for Anterior infarct are now Present Nonspecific T wave abnormality, worse in Anterolateral leads Referred By: Brigida Diaz Electronically Signed By:MO TORRES MD
--- NOTE | 2023-11-08 16:28 | MHC.EDTECH ---
Patient ekg taken and was read by Provider ,blood drawn ,rsv/covid swab collected and sent to lab .
[2023-11-08 16:29] LABS: MANUAL DIFF FLAG NO
[2023-11-08 16:31] LABS: Basophils Percent Auto 0.1 % (0-2); Hematocrit 33.9 % (37.0-47.0); Hemoglobin 11.2 g/dl (12.0-16.0); Imm Gran Pct Auto 0.6 % (0.0-0.4); Lymphocytes Absolute Auto 1.4 X10*3/uL (1.2-4.9); Lymphocytes Percent Auto 7.6 % (20-40); Mean Corpuscular Volume 87.8 fL (80.0-98.0); Mean Platelet Volume 9.1 fL (9.4-12.3); Monocytes Absolute Auto 1.2 X10*3/uL (0.1-1.2); Monocytes Percent Auto 6.8 % (2-11); Neutrophils Absolute Auto 15.1 x10*3/uL (2.0-8.3); Neutrophils Percent Auto 84.9 % (45-73); Platelet Count 435 X10*3/uL (160-400); Red Blood Count 3.86 X10*6/uL (4.20-5.50); Red Cell Distribution Width 14.1 % (11.0-16.0); White Blood Count 17.7 X10*3/uL (4.8-10.8)
[2023-11-08 16:38] LABS: INTERNATIONAL NORM RATIO 1.1 (0.9-1.1); Prothrombin Time 13.5 SEC (11.1-13.3)
[2023-11-08 16:40] LABS: Partial Thromboplastin Time 30.1 SEC (26.0-36.4)
[2023-11-08 16:47] LABS: Alanine Aminotransferase 54 U/L (0-31); Alkaline Phosphatase 104 U/L (39-117); Anion Gap 14 (12-20); Aspartate Amino Transferase 68 U/L (5-31); Bilirubin Total 1.2 mg/dL (0.0-1.0); Blood Urea Nitrogen 18 mg/dL (9-16); Calcium 9.5 mg/dL (8.4-10.2); Carbon Dioxide 23 mmol/L (22-29); Chloride 101 mmol/L (96-108); Creatinine Clr Calc Pharmacy 62.1; Estimated Glomerular Filt Rate > 60; Glucose Random 137 mg/dL (60-115); Potassium 3.7 mmol/L (3.3-5.1); Sodium 134 mmol/L (135-145); Total Protein 7.8 g/dL (6.5-8.0)
[2023-11-08 16:55] LABS: Troponin-I High Sensitivity 9.8 ng/L (<3.5-17.0)
[2023-11-08 17:11] LABS: Influenza A PCR NEGATIVE (Negative); Influenza B PCR NEGATIVE (Negative); Resp Syncy Virus RNA Qual PCR NEGATIVE (Negative); SARS COV2 PCR INHOUSE NEGATIVE (Negative)
[2023-11-08 17:42] LABS: Lipase 17 U/L (8-78)
[2023-11-08] MEDS: 0.9 % Sodium Chloride 1,000 ML 999 ML IV (18:09)
[2023-11-08] MEDS: ondansetron HCL 4 MG/2 ML VIAL IVPUSH (18:12)
[2023-11-08] MEDS: iohexoL 350 MG/ML 100 ML INFUS..BTL 85 ML IV (18:29)
[2023-11-08 19:15] LABS: Appearance Urine Turbid; Color Urine Dark Yellow; Glucose Urine UA Negative (Negative); Leukocyte Esterase Urine Large (3+) (Negative); Nitrite Urine Negative (Negative); PH 5.5 (5.0-9.0); UMIC TRIGGER UACC YES; Urine Blood Large (3+) (Negative); Urine Ketones Trace mg/dL (Negative); Urine Protein 100 (2+) mg/dL (Neg-Trace)
[2023-11-08 19:28] LABS: Bacteria Urine 4+ (None Seen); UACC Culture Trigger YES; WBC Urine >50 /HPF (0-5)
[2023-11-08 19:33] LABS: Lactic Acid 2.8 mmol/L (0.5-2.0)
--- NOTE | 2023-11-08 19:59 | MHC.EDTECH ---
At 1954, called [facility] for transfer. Dr. Coffey speaking to [facility] over phone.
[2023-11-08] MEDS: cefEPime HCl 2 GM in 0.9 % Sodium Chloride 50 ML IV (20:24)
--- NOTE | 2023-11-08 20:58 | PC.NURSE ---
IV abx and IVF infusing slowly. pt keeps bending her arm while asleep.
--- NOTE | 2023-11-08 21:02 | MHC.EDTECH ---
Called [facility] again at 2101. Was told we should hear back soon. Waiting for response from surgeon.
[2023-11-08 21:09] LABS: Reflex Lactate? Lactic Acid Added
--- NOTE | 2023-11-08 21:09 | MHC.EDTECH ---
[facility] transfer called back for Dr. Coffey at 2108.
[2023-11-08 21:23] VITALS: BP 126/78; PULSE 112; RESP 20; TEMP 38.9; O2SAT 98
[2023-11-08 21:26] VITALS: O2SAT 98
[2023-11-08 21:55] LABS: ~Lactic Acid-LAB USE ONLY 0.8 mmol/L (0.5-2.0)
--- NOTE | 2023-11-08 21:58 | PC.NURSE ---
family member at bedside gave pt 2 extra strength Tylenol for her fever. RN was not aware.
--- NOTE | 2023-11-08 21:59 | PC.NURSE ---
per MD Coffey, no IV fluids for sepsis protocol. states her lactic and BP are good without fluids
[2023-11-08] MEDS: Albuterol Sulfate (0.083%) 2.5 MG/3 ML VIAL.NEB INHALE (22:15)
[2023-11-08 22:17] VITALS: PULSE 98; RESP 16; O2SAT 96
--- NOTE | 2023-11-08 22:22 | PHA.MEDREC ---
Pharmacy Consult ? Medication Reconciliation Pharmacy has completed the medication reconciliation. Patient confirmed medications. Reports taking metoprolol but has not claim history for the medication. Beronica Johnson, PharmD
--- NOTE | 2023-11-08 22:23 | PM.IMHP ---
History of Present Illness Date of Service: 11/08/23 <LILIAM Botello - Last Filed: 11/08/23 23:05> Attending physician on admission: Diamond Wagner <LILIAM Botello - Last Filed: 11/08/23 23:05> Chief Complaint: Flank and back pain <LILIAM Botello - Last Filed: 11/08/23 23:05> Pt is a 63-year-old female with a PMH significant for?HTN, HLD,hx of gastric lap band with removal [address] Sheba Quiñonez at [facility], hx of nephrolithiasis with lithotripsy 2019, mild intermittent asthma, fibromyalgia, osteoarthritis, Paget's disease, and parotid gland mass who presents to the ED with?with bilateral flank and back pain for the past 2 weeks. Also experienced fever and chills for the past few days, as well as lower abdominal pain particularly in the suprapubic region. Has had dysuria for the past 2 weeks. Patient has a long history of recurrent UTIs and is followed by Dr. Flowers in Urology where she is receiving weekly bladder installations, with last appointment earlier today. She also complains of increased SOB and non-productive cough the past 3-4 days. Denies chest pain/pressure, palpiations. In the ED pt was febrile up to 102.0, tachycardic up to 112. Labs were significant for leukocytosis of 17.7, stable H&H of 11.2/33.9, lactic acid 2.8 with repeat 0.8, transaminitis of bilirubin 1.2, AST 68, ALT 54. UA was positive for UTI. Patient tested negative for influenza type a and B, RSV, COVID. CXR was unremarkable. CT?of abdomen and pelvis found intussusception at the jejunojejunal anastomosis with mild dilation of the proximal Miguel-en-Y loop, as well as focal abnormality of the right kidney suspicious for focal pyelonephritis with possible ureteritis. EKG demonstrated E.d. reached out to [facility] where patient had her bariatric surgery performed for possible transfer. Surgical team there thought the finding of intussusception was likely incidental given no evidence of bowel wall thickening or pneumatosis. They recommended medical admission here and declined transfer. ED then reached out to bariatric surgery to make them aware of the situation. Pt was treated with IVF, ondansetron, cefepime, and DuoNebs. Pt will be admitted to the hospital for treatment and further evaluation of pyelonephritis and intussusception. <LILIAM Botello - Last Filed: 11/08/23 23:05> Review of Systems Review of Systems: Suprapubic abdominal pain x2 weeks Bilateral flank pain x2 weeks Fever, chills Dysuria Nausea, no vomiting Nonproductive cough Denies chest pain/pressure, palpitations <LILIAM Botello - Last Filed: 11/08/23 23:05> [facility] Medical History: Medical History Hepatomegaly Needle exposure Microscopic hematuria Murmur Frequent UTI Iron deficiency anemia Dysuria Labile blood glucose Anemia Dyslipidemia Pernicious anemia Pre-op examination Cervicalgia of fsisztoy-frijscu-esckb region Vitamin D deficiency Osteoporosis 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 Asthma Paget's disease Fibromyalgia Nontoxic multinodular goiter Osteoarthritis HTN (hypertension) <LILIAM Botello - Last Filed: 11/08/23 23:05> Family History: Family History Mother Diabetes HTN (hypertension) Father Pancreatic cancer Diabetes HTN (hypertension) Maternal Grandmother Myocardial infarction Cancer Brother Pancreatic cancer Sister Uterine cancer <LILIAM Botello - Last Filed: 11/08/23 23:05> Surgical History: Surgical History History of excision of mass (08/21/23) History of removal of laparoscopic gastric banding device History of cystoscopy History of lobectomy of thyroid Mass of right parotid gland H/O laparoscopic adjustable gastric banding Hx of lithotripsy History of dilation and curettage History of delivery Hx of tonsillectomy Hx of gastric bypass <LILIAM Botello - Last Filed: 11/08/23 23:05> Social History: Social History Household Members: Family Housing: House Are you a primary child care attendant to a significant other at home: No Do you presently have visiting nurse or other home services: No Alcohol intake: never Patient Tobacco Use Status: Former Tobacco user Tobacco use type: Cigarette Smoked in Last 30 Days: No e-Cigarette/Vaping Use: Never Used Second Hand Smoke Exposure: No Use of substances other than those prescribed or required for medical reasons: No Advance Directives: No Advance Directives Information Provided: No service: No Current occupational status: unemployed and disabled Sexual orientation: Straight/Heterosexual Gender identity: Female Cognitive needs: No Hearing needs: No Vision needs: Yes (glasses) <LILIMA Botello - Last Filed: 11/08/23 23:05> Meds Allergies/Adverse reactions: Allergies Allergy/AdvReac Type Severity Reaction Status Date / Time phentermine Allergy Intermediate Palpitation Verified 11/08/23 14:18 s <LILIAM Botello - Last Filed: 11/08/23 23:05> Active Medications: Current Medications Ceftriaxone Sodium 1 gm/ (Sodium Chloride) 50 mls @ 100 mls/hr IV Q24H BEATRICE <LILIAM Botello - Last Filed: 11/08/23 23:05> Home medications: Home Medications Medication Instructions Recorded Confirmed Last Taken Type albuterol sulfate 90 mcg/actuation 2 puff inhalation Q6H PRN 08/22/20 11/08/23 Unknown History aerosol inhaler Shortness Of Breath Or Wheezing calcium citrate 500 mg PO BID 08/17/21 11/08/23 11/08/23 History lancets 30 gauge (Pure Comfort #100 ea 08/17/21 11/08/23 Unknown History Safety Lancets) pravastatin 20 mg tablet 20 mg PO DAILY 11/08/23 11/08/23 11/08/23 History <LILIAM Botello - Last Filed: 11/08/23 23:05> Physical Exam Vital Signs and Narrative: Vital Signs: Last Vital Signs Temp 102.0 F H 11/08/23 21:23 Pulse 98 11/08/23 22:17 Resp 16 11/08/23 22:17 BP 126/78 11/08/23 21:23 Pulse Ox 98 11/08/23 21:26 O2 Del Method Room Air 11/08/23 21:26 BMI result Body Mass Index 30.3 <LILIAM Botello - Last Filed: 11/08/23 23:05> Constitutional: Alert, in no acute distress. Mental Status: Oriented to person, place and time. Eyes: Pupils are equal, round, and reactive to light. Ear, Nose, and Throat: Oropharynx clear, mucous membranes moist. Ears and nose without deformities. Trachea midline. Respiratory: Diffuse wheezing bilaterally Cardiovascular: S1, S2 regular. No murmurs, rubs, or gallops. Gastrointestinal: Abdomen soft, non-distended, with lower and suprapubic abdominal pain. Normal bowel sounds. Back: CVA tenderness, right greater than left Neurologic: Cranial nerves II-XII are grossly intact bilaterally. No focal neurological deficits. Moves all extremities spontaneously. Skin: Warm, dry. Musculoskeletal: No cyanosis or clubbing. Extremities: No edema. Psychiatric: Normal mood and affect. <LILIAM Botello - Last Filed: 11/08/23 23:05> Results Labs CBC and Chem 7: 11/08/23 16:23 11/08/23 16:23 <LILIAM Botello - Last Filed: 11/08/23 23:05> Labs: Laboratory Results - last 24 hr 11/08/23 11/08/23 11/08/23 16:19 16:23 19:04 MCV 87.8 MCH 29.0 MCHC 33.0 RDW 14.1 Plt Count 435 H D MPV 9.1 L Immature Gran % (Auto) 0.6 H Neut % (Auto) 84.9 H Lymph % (Auto) 7.6 L [place] % (Auto) 6.8 Eos % (Auto) 0.0 Baso % (Auto) 0.1 Lymph # (Auto) 1.4 [place] # (Auto) 1.2 Eos # (Auto) 0.0 Baso # (Auto) 0.0 Abs Immat Gran (auto) 0.10 H Absolute Neuts (auto) 15.1 H Absolute Nucleated RBC 0.000 Nucleated RBC % (auto) 0.0 PT 13.5 H INR 1.1 APTT 30.1 Anion Gap 14 Estim Creat Clear Calc 62.1 Estimated GFR > 60 Random Glucose 137 H Lactic Acid 2.8 H* Lactic Acid F/U @ 2Hr Calcium 9.5 D Magnesium 2.0 Total Bilirubin 1.2 H AST 68 H ALT 54 H Alkaline Phosphatase 104 Total Protein 7.8 Albumin 4.0 Lipase 17 Urine Color Dark Yellow Urine Appearance Turbid Urine pH 5.5 Ur Specific [place] 1.020 Urine Protein 100 (2+) H Urine Glucose (UA) Negative Urine Ketones Trace Urine Blood Large (3+) H Urine Nitrite Negative Ur Leukocyte Esterase Large (3+) H Urine RBC 11-20 H Urine WBC >50 H Ur Squamous Epith Cells 11-20 Urine Bacteria 4+ Hyaline Casts 11-20 Influenza Type A (PCR) NEGATIVE Influenza Type B (PCR) NEGATIVE RSV RNA Qual (PCR) NEGATIVE SARS-CoV-2 RNA (RT-PCR) NEGATIVE 11/08/23 21:20 MCV MCH MCHC RDW Plt Count MPV Immature Gran % (Auto) Neut % (Auto) Lymph % (Auto) [place] % (Auto) Eos % (Auto) Baso % (Auto) Lymph # (Auto) [place] # (Auto) Eos # (Auto) Baso # (Auto) Abs Immat Gran (auto) Absolute Neuts (auto) Absolute Nucleated RBC Nucleated RBC % (auto) PT INR APTT Anion Gap Estim Creat Clear Calc Estimated GFR Random Glucose Lactic Acid Lactic Acid F/U @ 2Hr 0.8 Calcium Magnesium Total Bilirubin AST ALT Alkaline Phosphatase Total Protein Albumin Lipase Urine Color Urine Appearance Urine pH Ur Specific [place] Urine Protein Urine Glucose (UA) Urine Ketones Urine Blood Urine Nitrite Ur Leukocyte Esterase Urine RBC Urine WBC Ur Squamous Epith Cells Urine Bacteria Hyaline Casts Influenza Type A (PCR) Influenza Type B (PCR) RSV RNA Qual (PCR) SARS-CoV-2 RNA (RT-PCR) <LILIAM Botello - Last Filed: 11/08/23 23:05> Imaging Radiologist's Impressions: Impressions Chest X-Ray 11/08/23 18:31 IMPRESSION: Unremarkable examination. Abdomen/Pelvis CT 11/08/23 18:44 IMPRESSION: Intussusception at the jejunojejunal anastomosis with mild dilatation of the proximal Miguel-en-Y loop. Please see meehan images. Focal abnormality right kidney suspicious for focal pyelonephritis with possible ureteritis as above. Follow-up recommended to ensure resolution and to exclude any new abnormality. Fleischner guidelines were followed. <LILIAM Botello - Last Filed: 11/08/23 23:05> Assessment and Plan (1) Intussusception: Status: Acute <LILIAM Botello Last Filed: 11/08/23 23:05> (2) Acute pyelonephritis: Status: Acute <LILIAM Botello - Last Filed: 11/08/23 23:05> Pt is a 63-year-old female with a PMH significant for?HTN, HLD,hx of gastric lap band with removal [address] Sheba Quiñonez at [facility], hx of nephrolithiasis with lithotripsy 2019, mild intermittent asthma, fibromyalgia, osteoarthritis, Paget's disease, and parotid gland mass who presents to the ED with?with bilateral flank and back pain for the past 2 weeks. Patient will be admitted to the hospital for treatment and further evaluation of pyelonephritis and intussusception. Pyelonephritis with sepsis CT found focal abnormality in right kidney suspicious for focal pyelonephritis with possible ureteritis Patient with dysuria x2 weeks, UA positive Patient meets sepsis criteria: Fever, tachycardia, leukocytosis, lactic acid 2.8 with repeat WNL at 0.8 after IVF Patient treated with IVF and started on broad-spectrum antibiotics in the ED Will treat with ceftriaxone, started 11/08/[address] of abdomen pelvis found at the jejuno jejunal anastomosis with mild dilation of the proximal Miguel-en-Y loop ED contacted surgical team at [facility] who performed her bariatric surgery for possible transfer [facility] bariatric surgery said findings likely incidental given no thickening of the bowel or pneumatosis, recommended medical admission and conservative treatment ED has notified bariatric surgery If symptoms worsen or patient develops intractable nausea and vomiting, repeat CT of abdomen and pelvis Mild intermittent asthma Patient with persistent cough for the past few days, mild wheezing upon auscultation Patient not on at maintenance inhalers Will treat with DuoNebs p.r.n. Recurrent UTIs Sees Dr. Flowers for bladder instillations Hold methenamine GERD Continue PPI HTN Continue metoprolol DNR/DNI Attending:?Dr. Wagner DVT Prophylaxis: Pneumatic boots Pt will require a hospitalization of at least two nights for treatment of?intussusception in the setting of pyelonephritis with sepsis. Patient will require IV antibiotics, close monitoring of labs and clinical status, and specialist consultation. <LILIAM Botello - Last Filed: 11/08/23 23:05> Pt is a 63-year-old female with a PMH significant for?HTN, HLD,hx of gastric lap band with removal [address] Sheba Quiñonez at [facility], hx of nephrolithiasis with lithotripsy 2019, mild intermittent asthma, fibromyalgia, osteoarthritis, Paget's disease, and parotid gland mass who presents to the ED with?with bilateral flank and back pain for the past 2 weeks. Patient will be admitted to the hospital for treatment and further evaluation of pyelonephritis and intussusception. Pyelonephritis with sepsis CT found focal abnormality in right kidney suspicious for focal pyelonephritis with possible ureteritis Patient with dysuria x2 weeks, UA positive Patient meets sepsis criteria: Fever, tachycardia, leukocytosis, lactic acid 2.8 with repeat WNL at 0.8 after IVF Patient treated with IVF and started on broad-spectrum antibiotics in the ED Will treat with ceftriaxone, started 11/08/[address] of abdomen pelvis found at the jejuno jejunal anastomosis with mild dilation of the proximal Miguel-en-Y loop ED contacted surgical team at [facility] who performed her bariatric surgery for possible transfer [facility] bariatric surgery said findings likely incidental given no thickening of the bowel or pneumatosis, recommended medical admission and conservative treatment ED has notified [facility] bariatric surgery If symptoms worsen or patient develops intractable nausea and vomiting, repeat CT of abdomen and pelvis and transfer to [facility] Mild intermittent asthma Patient with persistent cough for the past few days, mild wheezing upon auscultation Patient not on at maintenance inhalers Will treat with DuoNebs p.r.n. Recurrent UTIs Sees Dr. Flowers for bladder instillations Hold methenamine GERD Continue PPI HTN Continue metoprolol DNR/DNI Attending:?Dr. Wagner DVT Prophylaxis: Pneumatic boots Pt will require a hospitalization of at least two nights for treatment of?intussusception in the setting of pyelonephritis with sepsis. Patient will require IV antibiotics, close monitoring of labs and clinical status, and specialist consultation. <Diamond Wagner MD - Last Filed: 11/08/23 23:45> Quality Stroke Does the patient have a stroke diagnosis?: No <LILIAM Botello - Last Filed: 11/08/23 23:05> VTE Prior VTE?: No <LILIAM Botello - Last Filed: 11/08/23 23:05> VTE Risk Level:: Medical - moderate - high <LILIAM Botello - Last Filed: 11/08/23 23:05> VTE Device Contraindication: N/A - Device Ordered <LILIAM Botello - Last Filed: 11/08/23 23:05> VTE Drug Contraindication: Treatment Not Indicated <LILIAM Botello - Last Filed: 11/08/23 23:05>
--- NOTE | 2023-11-08 22:44 | MHC.EDTECH ---
Per Dr. Coffey, called [facility] again at 2240. The surgeon had denied the transfer however, Dr. Coffey is now waiting to hear from the ER doc at [facility].
[2023-11-08] MEDS: cefTRIAXone sodium 1 GM in 0.9 % Sodium Chloride 50 ML IV (23:18)
[2023-11-08 23:19] VITALS: BP 106/60; PULSE 114; RESP 18; TEMP 37.2; O2SAT 94
[2023-11-08] MEDS: 0.9 % Sodium Chloride 1,000 ML 999 ML IVCONT (23:37)
[2023-11-08] MEDS: 0.9 % Sodium Chloride 1,500 ML 999 ML IVCONT (23:38)
--- NOTE | 2023-11-09 01:06 | PC.NURSE ---
pt resting comfortably with eyes closed, breathing even and unlabored, no apparent distress noted. IVF infusing
[2023-11-09 02:09] VITALS: BP 92/52; PULSE 88; RESP 18; TEMP 36.9; O2SAT 94
[2023-11-09 05:23] VITALS: BP 93/59; PULSE 78; RESP 16; TEMP 36.9; O2SAT 98
[2023-11-09] MEDS: Omeprazole 20 MG CAPSULE.DR PO (07:46)
[2023-11-09 07:47] VITALS: BP 117/59; PULSE 80; RESP 20; TEMP 37.3; O2SAT 97
[2023-11-09] MEDS: Albuterol/Iprat 2.5/0.5MG 3 ML AMPUL.NEB INHALE (08:13)
[2023-11-09 08:17] VITALS: PULSE 77; RESP 18; O2SAT 99
[2023-11-09 08:53] LABS: MANUAL DIFF FLAG NO
[2023-11-09 09:00] LABS: Basophils Percent Auto 0.2 % (0-2); Eosinophils Percent Auto 0.1 % (0-4); Hematocrit 28.6 % (37.0-47.0); Hemoglobin 9.4 g/dl (12.0-16.0); Imm Gran Abs Auto 0.08 X10*3/uL (0.00-0.03); Imm Gran Pct Auto 0.7 % (0.0-0.4); Lymphocytes Absolute Auto 0.8 X10*3/uL (1.2-4.9); Lymphocytes Percent Auto 6.9 % (20-40); Mean Corpuscular HGB Conc 32.9 g/dl (31.0-35.0); Mean Corpuscular Volume 91.4 fL (80.0-98.0); Mean Platelet Volume 9.7 fL (9.4-12.3); Monocytes Absolute Auto 0.9 X10*3/uL (0.1-1.2); Monocytes Percent Auto 7.7 % (2-11); Neutrophils Absolute Auto 10.1 x10*3/uL (2.0-8.3); Neutrophils Percent Auto 84.4 % (45-73); Platelet Count 328 X10*3/uL (160-400); Red Blood Count 3.13 X10*6/uL (4.20-5.50); Red Cell Distribution Width 14.1 % (11.0-16.0); White Blood Count 11.9 X10*3/uL (4.8-10.8)
[2023-11-09] MEDS: Acetaminophen 325 MG TABLET 650 MG PO (09:08)
[2023-11-09] MEDS: Pravastatin Sodium 20 MG TABLET PO (09:08)
[2023-11-09] MEDS: Cholecalciferol (Vitamin D3) 25 MCG TABLET PO (09:08)
[2023-11-09] MEDS: 0.9 % Sodium Chloride Flush 3 ML SYRINGE IVFLUSH (09:09)
[2023-11-09] MEDS: Folic Acid 1 MG TABLET PO (09:09)
[2023-11-09] MEDS: Ascorbic Acid 500 MG TABLET 1000 MG PO (09:09)
[2023-11-09] MEDS: 0.9 % Sodium Chloride 1,000 ML 80 ML IVCONT (09:12)
--- NOTE | 2023-11-09 09:33 | PM.CNGS ---
History of Present Illness Consult details Consult date: 11/09/23 Narrative: 63-year-old female with an abdominal pain, as well as back pain,admitted to the hospital for acute pyelonephritis. 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 She does have a history of multiple surgeries for weight loss. She had a lap band before and states that she had another surgery for weight loss. Her CAT scan is suggestive of bypass surgery with a Miguel EN Y limb and a jejunojejunal anastomosis. She says she has good bowel movements. She denies significant vomiting although she does state that she had 1 small emesis morning. The ER staff apparently had discussed her case with the bariatric service who had recommended transfer to [facility] [place] as she had her Bariatric surgery done there in the past. However, there were no beds available and her intussusception appeared to be an incidental finding. Currently she describes mild abdominal pain but mostly back pain. She has a long history of recurrent UTIs and is being seen by Dr. Flowers of Urology for this. Review of Systems Constitutional: Constitutional: Denies chills and Denies fever(s) Cardiovascular: Cardiovascular: Denies chest pain, Denies dyspnea and Denies dyspnea on exertion Respiratory: Respiratory: Denies cough, Denies dyspnea and Denies dyspnea on exertion Gastrointestinal: Gastrointestinal: Denies hematochezia and Denies change in bowel habits Genitourinary: Genitourinary: Denies hematuria Musculoskeletal: Musculoskeletal: Denies back pain and Denies limited range of motion Neurologic: Denies focal weakness and Denies convulsions Psychiatric: Psychiatric: Denies depression and Denies mood swings [facility] Past Medical History Medical History Hepatomegaly Needle exposure Microscopic hematuria Murmur Frequent UTI Iron deficiency anemia Dysuria Labile blood glucose Anemia Dyslipidemia Pernicious anemia Pre-op examination Cervicalgia of emuzrbjm-qxbmsgr-emefh region Vitamin D deficiency Osteoporosis 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 Asthma Paget's disease Fibromyalgia Nontoxic multinodular goiter Osteoarthritis HTN (hypertension) Family History Family History Mother Diabetes HTN (hypertension) Father Pancreatic cancer Diabetes HTN (hypertension) Maternal Grandmother Myocardial infarction Cancer Brother Pancreatic cancer Sister Uterine cancer Surgical History Surgical History History of excision of mass (08/21/23) History of removal of laparoscopic gastric banding device History of cystoscopy History of lobectomy of thyroid Mass of right parotid gland H/O laparoscopic adjustable gastric banding Hx of lithotripsy History of dilation and curettage History of delivery Hx of tonsillectomy Hx of gastric bypass Social History Social History Household Members: Family Housing: House Are you a primary career development associate to a significant other at home: No Do you presently have visiting nurse or other home services: No Alcohol intake: never Patient Tobacco Use Status: Former Tobacco user Tobacco use type: Cigarette e-Cigarette/Vaping Use: Never Used Second Hand Smoke Exposure: No service: No Current occupational status: unemployed and disabled Sexual orientation: Straight/Heterosexual Gender identity: Female Cognitive needs: No Hearing needs: No Vision needs: Yes (glasses) Meds Allergies Allergy/AdvReac Type Severity Reaction Status Date / Time phentermine Allergy Intermediate Palpitation Verified 11/08/23 14:18 s Active Medications: Current Medications Acetaminophen (Acetaminophen 325 Mg Tablet) 650 mg PO Q6H PRN PRN Reason: Pain, Mild (Pain Scale 1-3) Last Admin: 11/09/23 09:08 Dose: 650 mg Albuterol Sulfate (Albuterol Sulfate 90 Mcg 8 Gm Inhaler) 2 puff INHALE Q6H PRN PRN Reason: Shortness Of Breath Or Wheezing Albuterol/Ipratropium (Albuterol/Iprat 2.5/0.5mg 3 Ml Ampul.Neb) 3 ml INHALE RQ4H WHILE AWAKE PRN PRN Reason: Shortness of Breath/Wheezing Last Admin: 11/09/23 08:13 Dose: 3 ml Ascorbic Acid (Ascorbic Acid 500 Mg Tablet) 1,000 mg PO DAILY [facility] Last Admin: 11/09/23 09:09 Dose: 1,000 mg Folic Acid (Folic Acid 1 Mg Tablet) 1 mg PO DAILY [facility] Last Admin: 11/09/23 09:09 Dose: 1 mg Ceftriaxone Sodium 1 gm/ (Sodium Chloride) 50 mls @ 100 mls/hr IV Q24H [facility] Last Infusion: 11/08/23 23:52 Dose: Infused Sodium Chloride (Ns) 1,000 mls @ 80 mls/hr IVCONT .[id number] [facility] Last Admin: 11/09/23 09:12 Dose: 80 mls/hr Melatonin (Melatonin 3 Mg Tablet) 6 mg PO BEDTIME PRN PRN Reason: Insomnia Omeprazole (Omeprazole 20 Mg Capsule.Dr) 20 mg PO DAILY@0630 [facility] Last Admin: 11/09/23 07:46 Dose: 20 mg Ondansetron HCl (Ondansetron Hcl 4 Mg/2 Ml Vial) 4 mg IVPUSH Q8H PRN PRN Reason: Nausea and Vomiting Pravastatin Sodium (Pravastatin Sodium 20 Mg Tablet) 20 mg PO DAILY [facility] Last Admin: 11/09/23 09:08 Dose: 20 mg Sodium Chloride (0.9 % Sodium Chloride Flush 3 Ml Syringe) 3 ml IVFLUSH QSHIFT [facility] Last Admin: 11/09/23 09:09 Dose: 3 ml Vitamin D (Cholecalciferol (Vitamin D3) 25 Mcg Tablet) 25 mcg PO DAILY [facility] Last Admin: 11/09/23 09:08 Dose: 25 mcg Home Medications Medication Instructions Recorded Confirmed Last Taken Type albuterol sulfate 90 mcg/actuation 2 puff inhalation Q6H PRN 08/22/20 11/08/23 Unknown History aerosol inhaler Shortness Of Breath Or Wheezing calcium citrate 500 mg PO BID 08/17/21 11/08/23 11/08/23 History lancets 30 gauge (Pure Comfort #100 ea 08/17/21 11/08/23 Unknown History Safety Lancets) pravastatin 20 mg tablet 20 mg PO DAILY 11/08/23 11/08/23 11/08/23 History Physical Exam Vital Signs: Vital Signs: Last Vital Signs Temp 99.1 F 11/09/23 07:47 Pulse 77 11/09/23 08:17 Resp 18 11/09/23 08:17 BP 117/59 L 11/09/23 07:47 Pulse Ox 97 11/09/23 07:47 O2 Del Method Room Air 11/09/23 07:47 BMI result Body Mass Index 30.3 Const: General: comfortable and no acute distress Orientation/consciousness: patient oriented x3 Neck: Neck: Yes no lymphadenopathy Resp: Auscultation: clear to auscultation bilaterally Cardio: Rhythm: regular rhythm GI: Other: nondistended, very benign Palpation (GI): Soft to palpation, nontender and no guarding Neuro: General: patient oriented x3 Results Labs 11/09/23 08:23 11/09/23 08:23 Labs: Abnormal lab results 11/08/23 11/08/23 11/09/23 Range/Units 16:23 19:04 08:23 WBC 17.7 H 11.9 H (4.8-10.8) X10*3/uL RBC 3.86 L 3.13 L (4.20-5.50) X10*6/uL Hgb 11.2 L 9.4 L (12.0-16.0) g/dl Hct 33.9 L 28.6 L (37.0-47.0) % Plt Count 435 H D (160-400) X10*3/uL MPV 9.1 L (9.4-12.3) fL Immature Gran % (Auto) 0.6 H 0.7 H (0.0-0.4) % Neut % (Auto) 84.9 H 84.4 H (45-73) % Lymph % (Auto) 7.6 L 6.9 L (20-40) % Lymph # (Auto) 0.8 L (1.2-4.9) X10*3/uL Abs Immat Gran (auto) 0.10 H 0.08 H (0.00-0.03) X10*3/uL Absolute Neuts (auto) 15.1 H 10.1 H (2.0-8.3) x10*3/uL PT 13.5 H (11.1-13.3) SEC Sodium 134 L (135-145) mmol/L BUN 18 H (9-16) mg/dL Random Glucose 137 H (60-115) mg/dL Lactic Acid 2.8 H* (0.5-2.0) mmol/L Total Bilirubin 1.2 H (0.0-1.0) mg/dL AST 68 H (5-31) U/L ALT 54 H (0-31) U/L Urine Protein 100 (2+) H (Neg-Trace) mg/dL Urine Blood Large (3+) H (Negative) Ur Leukocyte Esterase Large (3+) H (Negative) Urine RBC 11-20 H (0-2) /HPF Urine WBC >50 H (0-5) /HPF Short CBC 11/08/23 11/09/23 Range/Units 16:23 08:23 WBC 17.7 H 11.9 H (4.8-10.8) X10*3/uL Hgb 11.2 L 9.4 L (12.0-16.0) g/dl Hct 33.9 L 28.6 L (37.0-47.0) % Plt Count 435 H D 328 (160-400) X10*3/uL BMP 11/08/23 16:23 Sodium 134 L Potassium 3.7 Chloride 101 Carbon Dioxide 23 BUN 18 H Creatinine 0.79 Calcium 9.5 D Liver Function 11/08/23 Range/Units 16:23 Total Bilirubin 1.2 H (0.0-1.0) mg/dL AST 68 H (5-31) U/L ALT 54 H (0-31) U/L Alkaline Phosphatase 104 (39-117) U/L Albumin 4.0 (3.5-5.0) g/dL Urine 11/08/23 Range/Units 19:04 Urine Color Dark Yellow Urine Appearance Turbid Urine pH 5.5 (5.0-9.0) Ur Specific [place] 1.020 (1.005-1.025) Urine Protein 100 (2+) H (Neg-Trace) mg/dL Urine Glucose (UA) Negative (Negative) mg/dL All other labs normal. Imaging Abdomen CT scan report/results: report reviewed and image reviewed CT scan - pelvis: report reviewed and image reviewed Assessment and Plan (1) Intussusception: Status: Acute 63-year-old female admitted for acute pyelonephritis. She had a CAT scan as well showing intussusception at the jejunal jejunal anastomosis. It appears that she had a gastric bypass procedure done in the in the past. I have reviewed her CAT scan images. There does not seem to be any evidence of small-bowel obstruction. The intussusception is likely incidental. Her abdominal exam is very benign. She does have chronic abdominal pain but this is unlikely to be related to her intussusception. She should be able to trial of clear liquid diet. This can be slowly advance. The ER staff has discussed her case with the Bariatric surgery service. I would defer to them for management if they feel that care should be different from the above. Procedures Date of Service Date of Service: 11/14/23
[2023-11-09 09:41] LABS: Anion Gap 10 (12-20); Blood Urea Nitrogen 10 mg/dL (9-16); Carbon Dioxide 21 mmol/L (22-29); Chloride 110 mmol/L (96-108); Creatinine Clr Calc Pharmacy 92.6; Estimated Glomerular Filt Rate > 60; Glucose Random 124 mg/dL (60-115); Potassium 3.4 mmol/L (3.3-5.1); Sodium 138 mmol/L (135-145)
[2023-11-09 10:05] LABS: Calcium 8.3 mg/dL (8.4-10.2)
--- NOTE | 2023-11-09 10:16 | P.CONGS_ITS ---
History of Present Illness Consult details Consult date: 11/09/23 Reason for consult: other (nausea and vomiting) Narrative: The patient is a 63-year-old female who presented to the hospital emergency room last night with a 2 week history of feeling unwell. Symptoms consisting of nausea and vomiting with limited oral intake and very limited oral intake over the last 3 days. Stating that she had only had very small sips of fluids without any solid intake. but still reported vomiting. Her history is significant for a complex bariatric surgical history including gastric bypass in 1992, lap band placement in 2014 and complicated band removal in January of 2023 with erosion into the stomach and postoperative abscess. (the bypass was performed in [place] however the band placement, subsequent cholecystectomy in 2018, and ultimately complex band removal was done at [facility], Dr. Loya). She had been seen in follow-up by Dr. Lyons in January, February and April 2023. The patient also has a significant past medical history for hematuria, interstitial cystitis, nephrolithiasis. In the emergency room she had lab data revealing leukocytosis, bacteriuria, lactic acidosis, hyponatremia, and transaminitis with fever of 102 and tachycardia to 112. CT scan was concerning for Intussusception at the jejunojejunal anastomosis with mild dilatation of the proximal Miguel-en-Y loop as well as right-sided pyelonephritis. Given her history of extensive bariatric surgery and possible intussusception, the emergency room contacted our service. Given the significant complex bariatric surgical history as well as complications from lap band removal it was felt that she would be best treated at [facility] under the care of her operative bariatric surgeon, Dr. Loya and we recommended transfer to [facility]. Initially the request for transfer was denied however upon calling back and again emphasizing the importance of continuing of care with the bariatric surgeon who knows her best, she was accepted in transfer to the medicine service at [facility] however no beds were available last night and she was admitted to [facility] until a bed would become available. Overnight, patient received IV ceftriaxone and IV fluids and was placed on a clear liquid diet. She tolerated small sips of fluid with nausea however no vomiting. Her white blood cell count has improved and her lactic acidosis has normalized however blood cultures have turned positive for Gram-negative rods. Time to positivity approximately 11-1/2 hours. She does report continued significant right-sided abdominal pain as well as right flank and back pain. She describes this as a ?10/10 pain, worse than childbirth or kidney stones?. Upon discussion of the ongoing concerns with the patient, she is in agreement with the transfer. The case was again discussed with attending bariatric surgeon, Dr. Deshpande, and again it was felt that patient would best be served by transfer to [facility]. She remains accepted in transfer and bed has become available and she will be transferred there this morning. Review of Systems 2 Constitutional: Constitutional: Reports as per HPI Respiratory: Respiratory: Reports chest congestion and Reports cough Gastrointestinal: Gastrointestinal: Reports abdominal pain, Denies coffee ground emesis, Denies constipation (last BM last night) and Reports nausea Genitourinary: Genitourinary: Reports dysuria PMFSH Past Medical History Medical History Hepatomegaly Needle exposure Microscopic hematuria Murmur Frequent UTI Iron deficiency anemia Dysuria Labile blood glucose Anemia Dyslipidemia Pernicious anemia Pre-op examination Cervicalgia of zddvxvsn-ggeveft-bliyn region Vitamin D deficiency Osteoporosis 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 Asthma Paget's disease Fibromyalgia Nontoxic multinodular goiter Osteoarthritis HTN (hypertension) Family History Family History Mother Diabetes HTN (hypertension) Father Pancreatic cancer Diabetes HTN (hypertension) Maternal Grandmother Myocardial infarction Cancer Brother Pancreatic cancer Sister Uterine cancer Surgical History Surgical History History of excision of mass (08/21/23) History of removal of laparoscopic gastric banding device History of cystoscopy History of lobectomy of thyroid Mass of right parotid gland H/O laparoscopic adjustable gastric banding Hx of lithotripsy History of dilation and curettage History of delivery Hx of tonsillectomy Hx of gastric bypass Social History Social History Household Members: Family Housing: House Are you a primary patient care manager to a significant other at home: No Do you presently have visiting nurse or other home services: No Alcohol intake: never Patient Tobacco Use Status: Former Tobacco user Tobacco use type: Cigarette e-Cigarette/Vaping Use: Never Used Second Hand Smoke Exposure: No service: No Current occupational status: unemployed and disabled Sexual orientation: Straight/Heterosexual Gender identity: Female Cognitive needs: No Hearing needs: No Vision needs: Yes (glasses) Meds Allergies Allergy/AdvReac Type Severity Reaction Status Date / Time phentermine Allergy Intermediate Palpitation Verified 11/08/23 14:18 s Active Medications: Current Medications Acetaminophen (Acetaminophen 325 Mg Tablet) 650 mg PO Q6H PRN PRN Reason: Pain, Mild (Pain Scale 1-3) Last Admin: 11/09/23 09:08 Dose: 650 mg Albuterol Sulfate (Albuterol Sulfate 90 Mcg 8 Gm Inhaler) 2 puff INHALE Q6H PRN PRN Reason: Shortness Of Breath Or Wheezing Albuterol/Ipratropium (Albuterol/Iprat 2.5/0.5mg 3 Ml Ampul.Neb) 3 ml INHALE RQ4H WHILE AWAKE PRN PRN Reason: Shortness of Breath/Wheezing Last Admin: 11/09/23 08:13 Dose: 3 ml Ascorbic Acid (Ascorbic Acid 500 Mg Tablet) 1,000 mg PO DAILY [facility] Last Admin: 11/09/23 09:09 Dose: 1,000 mg Folic Acid (Folic Acid 1 Mg Tablet) 1 mg PO DAILY [facility] Last Admin: 11/09/23 09:09 Dose: 1 mg Ceftriaxone Sodium 1 gm/ (Sodium Chloride) 50 mls @ 100 mls/hr IV Q24H [facility] Last Infusion: 11/08/23 23:52 Dose: Infused Sodium Chloride (Ns) 1,000 mls @ 80 mls/hr IVCONT .[id number] [facility] Last Admin: 11/09/23 09:12 Dose: 80 mls/hr Melatonin (Melatonin 3 Mg Tablet) 6 mg PO BEDTIME PRN PRN Reason: Insomnia Omeprazole (Omeprazole 20 Mg Capsule.Dr) 20 mg PO DAILY@0630 [facility] Last Admin: 11/09/23 07:46 Dose: 20 mg Ondansetron HCl (Ondansetron Hcl 4 Mg/2 Ml Vial) 4 mg IVPUSH Q8H PRN PRN Reason: Nausea and Vomiting Pravastatin Sodium (Pravastatin Sodium 20 Mg Tablet) 20 mg PO DAILY [facility] Last Admin: 11/09/23 09:08 Dose: 20 mg Sodium Chloride (0.9 % Sodium Chloride Flush 3 Ml Syringe) 3 ml IVFLUSH QSHIFT [facility] Last Admin: 11/09/23 09:09 Dose: 3 ml Vitamin D (Cholecalciferol (Vitamin D3) 25 Mcg Tablet) 25 mcg PO DAILY [facility] Last Admin: 11/09/23 09:08 Dose: 25 mcg Home Medications Medication Instructions Recorded Confirmed Last Taken Type albuterol sulfate 90 mcg/actuation 2 puff inhalation Q6H PRN 08/22/20 11/08/23 Unknown History aerosol inhaler Shortness Of Breath Or Wheezing calcium citrate 500 mg PO BID 08/17/21 11/08/23 11/08/23 History lancets 30 gauge (Pure Comfort #100 ea 08/17/21 11/08/23 Unknown History Safety Lancets) pravastatin 20 mg tablet 20 mg PO DAILY 11/08/23 11/08/23 11/08/23 History Physical Exam 2 Vital Signs: Vital Signs: Last Vital Signs Temp 99.1 F 11/09/23 07:47 Pulse 77 11/09/23 08:17 Resp 18 11/09/23 08:17 BP 117/59 L 11/09/23 07:47 Pulse Ox 97 11/09/23 07:47 O2 Del Method Room Air 11/09/23 07:47 BMI result Body Mass Index 30.3 Const: General: cooperative, alert, awake and ill appearing Nutritional Appearance: average body habitus Orientation/consciousness: patient oriented x3 Limitations: no limitations HEENT: Head: Yes normal to inspection Mouth: Normal oral and palatal mucosa present Eyes: General: appearance normal, both eyes and all related structures Resp: Effort & Inspection: able to speak in complete sentences A uscultation: diminished lung sounds bilateral in the lower lung coelho and bronchovesicular breath sounds Cardio: Rate: regular rate Rhythm: regular rhythm GI: Other: Well-healed midline incision as well as low transverse abdominal incision. Slightly hypoactive bowel sounds with point tenderness in the right lumbar quadrant, lateral and just superior to the umbilicus with rebound tenderness, without guarding or rigidity. Mild tenderness appreciated in the left lower quadrant and suprapubic region : General: Yes CVA tenderness (Right greater than left) Back/Spine/Pelvis: Back: CVA tenderness (Right greater than left) Neuro: General: patient oriented x3 Extrem: General: Yes no pedal edema Results Labs 11/09/23 08:23 12/23/23 08:23 Labs: Abnormal lab results 11/08/23 11/08/23 11/09/23 Range/Units 16:23 19:04 08:23 WBC 17.7 H 11.9 H (4.8-10.8) X10*3/uL RBC 3.86 L 3.13 L (4.20-5.50) X10*6/uL Hgb 11.2 L 9.4 L (12.0-16.0) g/dl Hct 33.9 L 28.6 L (37.0-47.0) % Plt Count 435 H D (160-400) X10*3/uL MPV 9.1 L (9.4-12.3) fL Immature Gran % (Auto) 0.6 H 0.7 H (0.0-0.4) % Neut % (Auto) 84.9 H 84.4 H (45-73) % Lymph % (Auto) 7.6 L 6.9 L (20-40) % Lymph # (Auto) 0.8 L (1.2-4.9) X10*3/uL Abs Immat Gran (auto) 0.10 H 0.08 H (0.00-0.03) X10*3/uL Absolute Neuts (auto) 15.1 H 10.1 H (2.0-8.3) x10*3/uL PT 13.5 H (11.1-13.3) SEC Sodium 134 L (135-145) mmol/L Chloride 110 H (96-108) mmol/L Carbon Dioxide 21 L (22-29) mmol/L Anion Gap 10 L (12-20) BUN 18 H (9-16) mg/dL Random Glucose 137 H 124 H (60-115) mg/dL Lactic Acid 2.8 H* (0.5-2.0) mmol/L Calcium 8.3 L D (8.4-10.2) mg/dL Total Bilirubin 1.2 H (0.0-1.0) mg/dL AST 68 H (5-31) U/L ALT 54 H (0-31) U/L Urine Protein 100 (2+) H (Neg-Trace) mg/dL Urine Blood Large (3+) H (Negative) Ur Leukocyte Esterase Large (3+) H (Negative) Urine RBC 11-20 H (0-2) /HPF Urine WBC >50 H (0-5) /HPF Short CBC 11/08/23 11/09/23 Range/Units 16:23 08:23 WBC 17.7 H 11.9 H (4.8-10.8) X10*3/uL Hgb 11.2 L 9.4 L (12.0-16.0) g/dl Hct 33.9 L 28.6 L (37.0-47.0) % Plt Count 435 H D 328 (160-400) X10*3/uL BMP 11/08/23 11/09/23 16:23 08:23 Sodium 134 L 138 Potassium 3.7 3.4 Chloride 101 110 H Carbon Dioxide 23 21 L BUN 18 H 10 Creatinine 0.79 0.53 Calcium 9.5 D 8.3 L D Liver Function 11/08/23 Range/Units 16:23 Total Bilirubin 1.2 H (0.0-1.0) mg/dL AST 68 H (5-31) U/L ALT 54 H (0-31) U/L Alkaline Phosphatase 104 (39-117) U/L Albumin 4.0 (3.5-5.0) g/dL Urine 11/08/23 Range/Units 19:04 Urine Color Dark Yellow Urine Appearance Turbid Urine pH 5.5 (5.0-9.0) Ur Specific [place] 1.020 (1.005-1.025) Urine Protein 100 (2+) H (Neg-Trace) mg/dL Urine Glucose (UA) Negative (Negative) mg/dL All other labs normal. Imaging Abdomen CT scan report/results: report reviewed and image reviewed Assessment and Plan (1) Abdominal pain: Qualifiers: Abdominal location: right upper quadrant Qualified Code(s): R10.11 - Right upper quadrant pain Status: Acute Likely multifactorial including acute pyelonephritis. Given her complex bariatric surgical history and abnormality on CT scan, it was felt that she would be best served under the care of her bariatric surgeon at [facility]. While there does not appear to be a need for an acute surgical intervention this morning, given her history and complexity, it was felt that transfer was warranted in the event of surgical intervention, she would best be treated by the surgeon who knows her best. Additionally, she does report a longstanding history of abdominal discomfort since the band removal in January 2023. She will need close bariatric surgical follow-up not only during this current admission, but once discharged. (2) Acute pyelonephritis: Status: Acute Remains under the care of the hospitalist service, currently receiving ceftriaxone. She has developed Gram-negative bacteremia with time to positivity approximately 11-1/2 hours. She continues IV fluids and will need continued medical management with IV antibiotics, IV fluids and daily labs Plan The case was discussed and reviewed in full with attending physician Dr. Deshpande since being contacted by the emergency room last night, through today's exam. Additionally, patient was seen bedside with the assistance of certified manager medical writing-Jocelin Total time managing care of this patient today: 90 minutes. Procedures Date of Service Date of Service: 11/09/23
--- NOTE | 2023-11-09 10:41 | P.DS_ITS ---
DS: Providers Provider Date of Service: 11/09/23 Date of admission: 11/08/23 23:43 Primary care physician: Mary Jo Conteh MD Consults: 11/08/23 22:38 Consult to Urology Routine Consulting Provider: Rishabh Flowers Reason for consultation: Pyelonephritis, pt patient undergoing bladder installations in office 11/09/23 00:16 Consult to Bariatric Surgery Routine Consulting Provider: Terrance Deshpande Reason for consultation: Intussusception 11/09/23 07:33 Consult to General Surgery Routine Consulting Provider: [facility] Reason for consultation: Intussusception DS: Diagnosis Discharge Diagnosis (1) Intussusception: Status: Acute DS: Summary Hospital Course Hospital Course: History and physical as per admitting provider. Pt is a 63-year-old female with a PMH significant for?HTN, HLD,hx of gastric lap band with removal [address] Sheba Quiñonez at [facility], hx of nephrolithiasis with lithotripsy 2019, mild intermittent asthma, fibromyalgia, osteoarthritis, Paget's disease, and parotid gland mass who presents to the ED with?with bilateral flank and back pain for the past 2 weeks. Also experienced fever and chills for the past few days, as well as lower abdominal pain particularly in the suprapubic region. Has had dysuria for the past 2 weeks. Patient has a long history of recurrent UTIs and is followed by Dr. Flowers in Urology where she is receiving weekly bladder installations, with last appointment earlier today. She also complains of increased SOB and non-productive cough the past 3-4 days. Denies chest pain/pressure, palpiations. In the ED pt was febrile up to 102.0, tachycardic up to 112. Labs were significant for leukocytosis of 17.7, stable H&H of 11.2/33.9, lactic acid 2.8 with repeat 0.8, transaminitis of bilirubin 1.2, AST 68, ALT 54. UA was positive for UTI. Patient tested negative for influenza type a and B, RSV, COVID. CXR was unremarkable. CT?of abdomen and pelvis found intussusception at the jejunojejunal anastomosis with mild dilation of the proximal Miguel-en-Y loop, as well as focal abnormality of the right kidney suspicious for focal pyelonephritis with possible ureteritis. EKG demonstrated E.d. reached out to [facility] where patient had her bariatric surgery performed for possible transfer. Surgical team there thought the finding of intussusception was likely incidental given no evidence of bowel wall thickening or pneumatosis. They recommended medical admission here and declined transfer. ED then reached out to bariatric surgery to make them aware of the situation. Pt was treated with IVF, ondansetron, cefepime, and DuoNebs. Pt will be admitted to the hospital for treatment and further evaluation of pyelonephritis and intussusception. [age] old woman a bariatric surgical history presenting with pain. Abdominal CT showed intussusception the jejunojejunal anastomosis with mild dilatation of the proximal pole Miguel-en-Y loop, focal abnormality to the right kidney suspicious for focal pyelonephritis with possible ureteritis. Discussed case in length with bariatric surgery team and the recommendation would be to transfer patient to [facility] as her history of bariatric surgery has been at [facility] with Dr. Loya and most recent surgery may have been in 2022. Patient reports that she has felt unwell since then. The concern is the Pyelonephritis developing into a worsening infection causing possibly bowel obstruction and further complications of her previous bariatric surgeries. She was started on IV Rocephin for pyelonephritis, blood cultures came back today 2/2 gram negative jake. She had fever overnight but none this morning, mild leukocytosis of 11.9 no renal dysfunction noted. Patient is still having some right upper quadrant pain that radiates to her back with no nausea. She does have also URI symptoms and was started on prednisone and scheduled DuoNebs.Plan is to transfer patient to [facility] for close monitoring of abdominal pain and indicates that she may need some abdominal surgery secondary to her bariatric issues if she will be in the facility where her bariatric surgeons are located. GERD. Continue PPI Hypertension. Continue with Toprol Time Attestation Discharge coordination time: Greater than 30 minutes Quality: Safe Use of Opioids Does Pt have an Active Cancer Diagnosis on the Problem List?: No Quality: Stroke Does the patient have a stroke diagnosis?: No Physical Exam Vital Signs: Vital Signs: Last Vital Signs Temp 99.1 F 11/09/23 07:47 Pulse 77 11/09/23 08:17 Resp 18 11/09/23 08:17 BP 117/59 L 11/09/23 07:47 Pulse Ox 97 11/09/23 07:47 O2 Del Method Room Air 11/09/23 07:47 BMI result Body Mass Index 30.3 Appearing in no acute distress head is normocephalic atraumatic eyes pupils are PERRLA sclera is anicteric mouth throat mucous membranes are intact and moist neck is supple no lymphadenopathy, no JVD noted lung sounds extra tai wheezing heart regular rate rhythm, clear S1, S2 positive bowel sounds, abdomen is soft, tender to right upper quadrant radiating to back neuro patient is alert x3, no focal deficits DS: Data Data Completed and Pending Labs on day of discharge: Laboratory Results - last 24 hr 11/08/23 11/08/23 11/08/23 16:19 16:23 19:04 WBC 17.7 H RBC 3.86 L Hgb 11.2 L Hct 33.9 L MCV 87.8 MCH 29.0 MCHC 33.0 RDW 14.1 Plt Count 435 H D MPV 9.1 L Immature Gran % (Auto) 0.6 H Neut % (Auto) 84.9 H Lymph % (Auto) 7.6 L Mcdowell % (Auto) 6.8 Eos % (Auto) 0.0 Baso % (Auto) 0.1 Lymph # (Auto) 1.4 Mcdowell # (Auto) 1.2 Eos # (Auto) 0.0 Baso # (Auto) 0.0 Abs Immat Gran (auto) 0.10 H Absolute Neuts (auto) 15.1 H Absolute Nucleated RBC 0.000 Nucleated RBC % (auto) 0.0 PT 13.5 H INR 1.1 APTT 30.1 Sodium 134 L Potassium 3.7 Chloride 101 Carbon Dioxide 23 Anion Gap 14 BUN 18 H Creatinine 0.79 Estim Creat Clear Calc 62.1 Estimated GFR > 60 Random Glucose 137 H Lactic Acid 2.8 H* Lactic Acid F/U @ 2Hr Calcium 9.5 D Magnesium 2.0 Total Bilirubin 1.2 H AST 68 H ALT 54 H Alkaline Phosphatase 104 Troponin I High Sens 9.8 Total Protein 7.8 Albumin 4.0 Lipase 17 Urine Color Dark Yellow Urine Appearance Turbid Urine pH 5.5 Ur Specific [place] 1.020 Urine Protein 100 (2+) H Urine Glucose (UA) Negative Urine Ketones Trace Urine Blood Large (3+) H Urine Nitrite Negative Ur Leukocyte Esterase Large (3+) H Urine RBC 11-20 H Urine WBC >50 H Ur Squamous Epith Cells 11-20 Urine Bacteria 4+ Hyaline Casts 11-20 Influenza Type A (PCR) NEGATIVE Influenza Type B (PCR) NEGATIVE RSV RNA Qual (PCR) NEGATIVE SARS-CoV-2 RNA (RT-PCR) NEGATIVE 11/08/23 11/09/23 21:20 08:23 WBC 11.9 H RBC 3.13 L Hgb 9.4 L Hct 28.6 L MCV 91.4 MCH 30.0 MCHC 32.9 RDW 14.1 Plt Count 328 MPV 9.7 Immature Gran % (Auto) 0.7 H Neut % (Auto) 84.4 H Lymph % (Auto) 6.9 L Mcdowell % (Auto) 7.7 Eos % (Auto) 0.1 Baso % (Auto) 0.2 Lymph # (Auto) 0.8 L Mcdowell # (Auto) 0.9 Eos # (Auto) 0.0 Baso # (Auto) 0.0 Abs Immat Gran (auto) 0.08 H Absolute Neuts (auto) 10.1 H Absolute Nucleated RBC 0.000 Nucleated RBC % (auto) 0.0 PT INR APTT Sodium 138 Potassium 3.4 Chloride 110 H Carbon Dioxide 21 L Anion Gap 10 L BUN 10 Creatinine 0.53 Estim Creat Clear Calc 92.6 Estimated GFR > 60 Random Glucose 124 H Lactic Acid Lactic Acid F/U @ 2Hr 0.8 Calcium 8.3 L D Magnesium Total Bilirubin AST ALT Alkaline Phosphatase Troponin I High Sens Total Protein Albumin Lipase Urine Color Urine Appearance Urine pH Ur Specific [place] Urine Protein Urine Glucose (UA) Urine Ketones Urine Blood Urine Nitrite Ur Leukocyte Esterase Urine RBC Urine WBC Ur Squamous Epith Cells Urine Bacteria Hyaline Casts Influenza Type A (PCR) Influenza Type B (PCR) RSV RNA Qual (PCR) SARS-CoV-2 RNA (RT-PCR) Preliminary micro results at discharge 11/08/23 20:23 Blood Culture - Preliminary Blood - Venous Prelim: GNR Gram Stain only 11/08/23 20:23 Blood Culture - Preliminary Blood - Venous Prelim: GNR Gram Stain only Discharge Plan Discharge Anticipated Discharge Date/Time: 11/09/23 10:37 Patient Disposition: Xfer Acute Care Hospital Discharge Diagnosis: Abdominal pain Pyelonephritis Bacteremia Referrals: Mary Jo Ascencio MD [Primary Care Provider] - 1 Week Discharge Medications: New ceftriaxone 1 gram Recon Soln 1 g IV Q24H Qty: 1 0RF albuterol sulfate 2.5 mg /3 mL (0.083 %) Solution For Nebulization 2.5 mg inhalation RQ4H WHILE AWAKE Qty: 75 0RF prednisone 20 mg Tablet 40 mg PO DAILY Qty: 7 0RF Continued folic acid 1 mg tablet 1 mg PO DAILY 90 Days Qty: 90 3RF metoprolol succinate 25 mg tablet extended release 24 hr 25 mg PO DAILY 90 Days Qty: 90 1RF cholecalciferol (vitamin D3) 25 mcg (1,000 unit) capsule 25 mcg PO DAILY 90 Days Qty: 90 1RF omeprazole 20 mg capsule,delayed release(DR/EC) 20 mg PO DAILY 90 Days Qty: 90 5RF (DME) FreeStyle Lite Strips Strip See Rx Instructions .ROUTE .MEDSUPPLY Qty: 50 11RF Rx Instructions: to test 2 to 3 times a day as directed (DME) lancets [FreeStyle Lancets] 28 gauge misc See Rx Instructions .ROUTE .MEDSUPPLY Qty: 100 11RF Rx Instructions: Use 1 lancet once a day (DME) incontinence pad, liner, disp Pad See Rx Instructions .Route Qty: 156 11RF Rx Instructions: As directed pravastatin 20 mg tablet 20 mg PO DAILY (DME) blood-glucose meter [FreeStyle Lite Meter] Kit See Rx Instructions .Route Qty: 1 0RF Rx Instructions: As directed (DME) Carepoint Luer Lock Syr-needle 3 mL 22 gauge x 1 syringe See Rx Instructions .Route Qty: 1 1RF Rx Instructions: As directed acetaminophen 500 mg capsule 500 mg PO QID PRN (Reason: pain) 10 Days Qty: 30 0RF albuterol sulfate 90 mcg/actuation HFA aerosol inhaler 2 puff inhalation Q6H PRN (Reason: Shortness Of Breath Or Wheezing) (DME) lancets [Pure Comfort Safety Lancets] 30 gauge misc See Rx Instructions .ROUTE DAILY Qty: 100 Rx Instructions: As directed calcium citrate 250 mg calcium tablet 500 mg PO BID methenamine hippurate 1 gram tablet 1 g PO DAILY 90 Days Qty: 90 1RF ascorbic acid (vitamin C) 1,000 mg tablet 1 g PO DAILY 90 Days Qty: 90 1RF Discharge Orders: Discharge Order (Routine); Ordered 11/09/23 Ordered By: Yuly Mcknight Diet: Advance to usual diet Activity on Discharge: As tolerated Stand Alone Forms: Patient Portal Discharge page Care Plan Goals: Continue current treatment for abdominal pain and pyelonephritis, bacteremia Health Concerns: Abdominal pain Pyelonephritis Bacteremia Plan of Treatment: Transfer to [facility] for further monitoring of abdominal pain with extensive history of bariatric surgery. Bariatric surgeon located at [facility] Assessment: See discharge summary
--- NOTE | 2023-11-09 10:48 | PC.NURSE ---
Nursing report given to BRADY Tejeda assuming care of patient upon transfer to [facility] at this time. Patient accepted, going to bed [facility] room 431.
--- NOTE | 2023-11-09 10:50 | PC.NURSE ---
Per Yuly Mcknight NP patient ok to d/c telemetry monitoring for transfer to [facility]- ambulance ordered BLS.
[2023-11-09] MEDS: predniSONE 20 MG TABLET 40 MG PO (10:57)
[2023-11-09] MEDS: Albuterol Sulfate (0.083%) 2.5 MG/3 ML VIAL.NEB INHALE (11:29)
[2023-11-09 11:32] VITALS: PULSE 87; RESP 18; O2SAT 100
--- NOTE | 2023-11-09 11:46 | MHC.CM.PN ---
PT BEING TRANSFERRED TO [facility]
--- NOTE | 2023-11-09 16:24 | PM.UROCN ---
History of Present Illness Consult details Consult date: 11/09/23 Narrative: CC: pyelonephritis 63-year-old female Prior history of nephrolithiasis and question of interstitial cystitis, fibromyalgia, gastric bypass Presents to hospital with weakness, , generalized lower abdominal pain and paint on posterior aspect of back. UA positive blood, positive leuk Estrace, negative nitrate Iinitial examination she was febrile to 102.0, WBC 17.7, lactate of 2.8. Hydration performed. Repeat lactate 0.8. Imaging performed. Question of abdominal intussusception. Discussion regarding transfer outside facility. imaging - CT Within the right midpole kidney posteriorly, there is a approximately 2 cm decreased ill-defined attenuation is since baseline. The right urinary collecting system demonstrates mild hyperenhancement especially proximally. No stones or hydronephrosis. No eft-sided abnormality. No perinephric abnormality. Initial decision made for conservative therapy with antibiotics Review of Systems Constitutional: Constitutional: Denies chills and Denies fever(s) Cardiovascular: Cardiovascular: Reports no additional cardiovascular complaints and Denies syncope Respiratory: Respiratory: Denies cough Gastrointestinal: Gastrointestinal: Denies abdominal pain and Denies heartburn Genitourinary: Genitourinary: Reports as per HPI and Denies change in libido Neurologic: Denies syncope Psychiatric: Psychiatric: Denies change in libido Endocrine: Endocrine: Denies change in libido [facility] Past Medical History Medical History Hepatomegaly Needle exposure Microscopic hematuria Murmur Frequent UTI Iron deficiency anemia Dysuria Labile blood glucose Anemia Dyslipidemia Pernicious anemia Pre-op examination Cervicalgia of ksfdmcii-cxwyedo-pztma region Vitamin D deficiency Osteoporosis 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 Asthma Paget's disease Fibromyalgia Nontoxic multinodular goiter Osteoarthritis HTN (hypertension) Family History Family History Mother Diabetes HTN (hypertension) Father Pancreatic cancer Diabetes HTN (hypertension) Maternal Grandmother Myocardial infarction Cancer Brother Pancreatic cancer Sister Uterine cancer Surgical History Surgical History History of excision of mass (08/21/23) History of removal of laparoscopic gastric banding device History of cystoscopy History of lobectomy of thyroid Mass of right parotid gland H/O laparoscopic adjustable gastric banding Hx of lithotripsy History of dilation and curettage History of delivery Hx of tonsillectomy Hx of gastric bypass Social History Social History Household Members: Family Housing: House Are you a primary health care facilities inspector to a significant other at home: No Do you presently have visiting nurse or other home services: No Alcohol intake: never Patient Tobacco Use Status: Former Tobacco user Tobacco use type: Cigarette e-Cigarette/Vaping Use: Never Used Second Hand Smoke Exposure: No service: No Current occupational status: unemployed and disabled Sexual orientation: Straight/Heterosexual Gender identity: Female Cognitive needs: No Hearing needs: No Vision needs: Yes (glasses) Meds Allergies Allergy/AdvReac Type Severity Reaction Status Date / Time phentermine Allergy Intermediate Palpitation Verified 11/08/23 14:18 s Home Medications Medication Instructions Recorded Confirmed Last Taken Type albuterol sulfate 90 mcg/actuation 2 puff inhalation Q6H PRN 08/22/20 11/08/23 Unknown History aerosol inhaler Shortness Of Breath Or Wheezing calcium citrate 500 mg PO BID 08/17/21 11/08/23 11/08/23 History lancets 30 gauge (Pure Comfort #100 ea 08/17/21 11/08/23 Unknown History Safety Lancets) pravastatin 20 mg tablet 20 mg PO DAILY 11/08/23 11/08/23 11/08/23 History Physical Exam Vital Signs: Vital Signs: Last Vital Signs Temp 99.1 F 11/09/23 07:47 Pulse 87 11/09/23 11:32 Resp 18 11/09/23 11:32 BP 117/59 L 11/09/23 07:47 Pulse Ox 97 11/09/23 07:47 O2 Del Method Room Air 11/09/23 07:47 BMI result Body Mass Index 30.3 Const: General: cooperative, healthy appearing, comfortable and no acute distress Orientation/consciousness: patient oriented x3 HEENT: Face and sinus: Yes normal facial exam Mouth: moist mucous membranes Neck: Neck: Yes normal visual inspection, Yes full ROM and Yes trachea midline Chest: Chest palpation & inspection: normal inspection of the chest Resp: Effort & Inspection: normal respiratory effort, able to speak in complete sentences and no respiratory distress GI: Inspection: Yes normal to inspection Back/Spine/Pelvis: Cervical Spine: normal cervical lordosis Thoracic/Lumbar Spine: thoracic and lumbar spine normal to inspection Skin: General skin exam: no rashes or lesions noted Neuro: General: patient oriented x3, gait normal, tone normal and moves all extremities Extrem: General: Yes normal to inspection and Yes capillary refill normal Results Labs 11/09/23 08:23 12 08:23 Labs: Abnormal lab results 11/08/23 11/08/23 11/09/23 Range/Units 16:23 19:04 08:23 WBC 17.7 H 11.9 H (4.8-10.8) X10*3/uL RBC 3.86 L 3.13 L (4.20-5.50) X10*6/uL Hgb 11.2 L 9.4 L (12.0-16.0) g/dl Hct 33.9 L 28.6 L (37.0-47.0) % Plt Count 435 H D (160-400) X10*3/uL MPV 9.1 L (9.4-12.3) fL Immature Gran % (Auto) 0.6 H 0.7 H (0.0-0.4) % Neut % (Auto) 84.9 H 84.4 H (45-73) % Lymph % (Auto) 7.6 L 6.9 L (20-40) % Lymph # (Auto) 0.8 L (1.2-4.9) X10*3/uL Abs Immat Gran (auto) 0.10 H 0.08 H (0.00-0.03) X10*3/uL Absolute Neuts (auto) 15.1 H 10.1 H (2.0-8.3) x10*3/uL PT 13.5 H (11.1-13.3) SEC Sodium 134 L (135-145) mmol/L Chloride 110 H (96-108) mmol/L Carbon Dioxide 21 L (22-29) mmol/L Anion Gap 10 L (12-20) BUN 18 H (9-16) mg/dL Random Glucose 137 H 124 H (60-115) mg/dL Lactic Acid 2.8 H* (0.5-2.0) mmol/L Calcium 8.3 L D (8.4-10.2) mg/dL Total Bilirubin 1.2 H (0.0-1.0) mg/dL AST 68 H (5-31) U/L ALT 54 H (0-31) U/L Urine Protein 100 (2+) H (Neg-Trace) mg/dL Urine Blood Large (3+) H (Negative) Ur Leukocyte Esterase Large (3+) H (Negative) Urine RBC 11-20 H (0-2) /HPF Urine WBC >50 H (0-5) /HPF Short CBC 11/08/23 11/09/23 Range/Units 16:23 08:23 WBC 17.7 H 11.9 H (4.8-10.8) X10*3/uL Hgb 11.2 L 9.4 L (12.0-16.0) g/dl Hct 33.9 L 28.6 L (37.0-47.0) % Plt Count 435 H D 328 (160-400) X10*3/uL BMP 11/08/23 11/09/23 16:23 08:23 Sodium 134 L 138 Potassium 3.7 3.4 Chloride 101 110 H Carbon Dioxide 23 21 L BUN 18 H 10 Creatinine 0.79 0.53 Calcium 9.5 D 8.3 L D Liver Function 11/08/23 Range/Units 16:23 Total Bilirubin 1.2 H (0.0-1.0) mg/dL AST 68 H (5-31) U/L ALT 54 H (0-31) U/L Alkaline Phosphatase 104 (39-117) U/L Albumin 4.0 (3.5-5.0) g/dL Urine 11/08/23 Range/Units 19:04 Urine Color Dark Yellow Urine Appearance Turbid Urine pH 5.5 (5.0-9.0) Ur Specific [place] 1.020 (1.005-1.025) Urine Protein 100 (2+) H (Neg-Trace) mg/dL Urine Glucose (UA) Negative (Negative) mg/dL All other labs normal. Assessment and Plan (1) Acute pyelonephritis: Status: Acute Plan antibiotic therapy for urinary tract infection treatment Bladder scan for residual Procedures Date of Service Date of Service: 11/09/23
== END 2023-11-09 13:04 | disposition short-term general hospital (02) | DRG 690 ==
LOC: HO.ED 11-09 00:50 → HO.EDOVER 11-09 01:38 → HO.IMC 11-09 05:11
PROVIDERS: Physician Assistant Medical; Admitting Provider Student in an Organized Health Care Education/Training Program; Emergency Provider Emergency Medicine; PCP Internal Medicine; Visit Provider Nurse Practitioner Acute Care
DX: N10 Acute pyelonephritis (principal); K56.1 Intussusception; R78.81 Bacteremia; J45.20 Mild intermittent asthma, uncomplicated; K21.9 Gastro-esophageal reflux disease without esophagitis; I10 Essential (primary) hypertension; Z66 Do not resuscitate; Z87.440 Personal history of urinary (tract) infections; Z20.822 Contact with and (suspected) exposure to COVID-19; Z98.84 Bariatric surgery status; Z79.899 Other long term (current) drug therapy
CPT/HCPCS: 0241U; 36415; 71046; 74177; 80048; 80053; 81001; 83605; 83690; 83735; 84484; 85025; 85610; 85730; 87040; 87077; 87186; 87205; 93005; 94640; 99285; J0692; J0696; J2405; Q9967

== ENCOUNTER → 2023-11-08 16:02 | Outpatient (BNV) | payer OTHER, SELFPAY | PROVIDERS: Admitting Provider Student in an Organized Health Care Education/Training Program; Emergency Provider Emergency Medicine; PCP Internal Medicine; Visit Provider Internal Medicine Cardiovascular Disease | DX: R94.31 Abnormal electrocardiogram [ECG] [EKG] (principal) | CPT/HCPCS: 93010 ==

== ENCOUNTER → 2023-11-08 16:19 | Outpatient (BNV) | payer OTHER, SELFPAY | PROVIDERS: Emergency Provider Emergency Medicine; PCP Internal Medicine; Visit Provider Student in an Organized Health Care Education/Training Program | DX: K56.1 Intussusception (principal) | CPT/HCPCS: 99223; 99239 ==

== ENCOUNTER → 2023-11-08 23:43 | Outpatient (BNV) | payer OTHER, SELFPAY | PROVIDERS: Admitting Provider Student in an Organized Health Care Education/Training Program; Emergency Provider Emergency Medicine; PCP Internal Medicine; Visit Provider Urology | DX: N10 Acute pyelonephritis (principal) | CPT/HCPCS: 99222 ==

== ENCOUNTER → 2023-11-08 23:43 | Outpatient (BNV) | payer OTHER, SELFPAY | PROVIDERS: Admitting Provider Student in an Organized Health Care Education/Training Program; Emergency Provider Emergency Medicine; PCP Internal Medicine; Visit Provider Physician Assistant Surgical | DX: R10.11 Right upper quadrant pain (principal); N10 Acute pyelonephritis; Z98.84 Bariatric surgery status | CPT/HCPCS: 99223 ==

== ENCOUNTER → 2023-11-08 23:43 | Outpatient (BNV) | payer OTHER, SELFPAY | PROVIDERS: Admitting Provider Student in an Organized Health Care Education/Training Program; Emergency Provider Emergency Medicine; PCP Internal Medicine; Visit Provider Surgery | DX: K56.1 Intussusception (principal) | CPT/HCPCS: 99024 ==

== ENCOUNTER 2023-11-27 09:03 | Outpatient (AMB) | payer OTHER, SELFPAY ==
--- NOTE | 2023-11-27 09:13 | A.OFFVIS_ITS ---
Intake Vital Signs 11/27/23 09:14 Height 5 ft Weight 154 lb BMI 30.1 BP 117/74 Blood Pressure Location Lt brachial Position Sitting Pulse 69 Temp 97.2 F Intake Visit Reasons: Colonoscopy Screening Intake Note: Patient new consult for 2nd pre colonoscopy screening. Patient cc: diarrhea, abdominal pain and some acid reflex on and off. Clinic Licensed Practical Nurse Required: Yes Clinic Licensed Practical Nurse Name: [facility] Interpeter Accompanied by: Self / Same As Patient Allergies phentermine Allergy (Intermediate, Verified 11/27/23 09:14) Palpitations HPI HPI Comments History of Present Illness Details A 63 y/o F multiple comorbidities referred for colon screening Recent admission for acute pyelonephritis, sepsis transfer to [facility] in October- As she presents with iron deficient anemia-she says she was seen [facility] ED- admitted for 24 hrs- IV antibiotics-she was transferred to [facility] for further care sepsis due to pyelonephritis- txd IV antibx x 3 days d/c 11/12- C/O diffuse abdominal pain,r- flank and hematuria-that began a few days ago- dysuria- nausea and dizziness she went to Dr. Mac office yesterday-with c/o abdominal pain-is awaiting appointment She also is phone with Dr. Georges for anemia, last seen 02/2023 upcoming appointment pending Appetite is fair she is not feel like eating due to nausea Bowels have been normal no hematochezia No known fever or chills Reviewed previous record with patient and station detective 11/08/23 <LILIAM Botello - Last Filed: 11/08/23 23:05> Attending physician on admission: Diamond Wagner <LILIAM Botello - Last Filed: 11/08/23 23:05> Chief Complaint: Flank and back pain <LILIAM Botello - Last Filed: 11/08/23 23:05> Pt is a 63-year-old female with a PMH significant for?HTN, HLD,hx of gastric lap band with removal [address] Sheba Quiñonez at [facility], hx of nephrolithiasis with lithotripsy 2019, mild intermittent asthma, fibromyalgia, osteoarthritis, Paget's disease, and parotid gland mass who presents to the ED with?with bilateral flank and back pain for the past 2 weeks. Also experienced fever and chills for the past few days, as well as lower abdominal pain particularly in the suprapubic region. Has had dysuria for the past 2 weeks. Patient has a long history of recurrent UTIs and is followed by Dr. Flowers in Urology where she is receiving weekly bladder installations, with last appointment earlier today. She also complains of increased SOB and non- productive cough the past 3-4 days. Denies chest pain/pressure, palpiations. In the ED pt was febrile up to 102.0, tachycardic up to 112. Labs were significant for leukocytosis of 17.7, stable H&H of 11.2/33.9, lactic acid 2.8 with repeat 0.8, transaminitis of bilirubin 1.2, AST 68, ALT 54. UA was positive for UTI. Patient tested negative for influenza type a and B, RSV, COVID. CXR was unremarkable. CT?of abdomen and pelvis found intussusception at the jejunojejunal anastomosis with mild dilation of the proximal Miguel-en-Y loop, as well as focal abnormality of the right kidney suspicious for focal pyelonephritis with possible ureteritis. EKG demonstrated E.d. reached out to [facility] where patient had her bariatric surgery performed for possible transfer. Surgical team there thought the finding of intussusception was likely incidental given no evidence of bowel wall thickening or pneumatosis. They recommended medical admission here and declined transfer. ED then reached out to bariatric surgery to make them aware of the situation. Pt was treated with IVF, ondansetron, cefepime, and DuoNebs. Pt will be admitted to the hospital for treatment and further evaluation of pyelonephritis and intussusception. 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 Asthma Paget's disease Fibromyalgia Nontoxic multinodular goiter Osteoarthritis HTN (hypertension) Surgical History History of excision of mass (08/21/23) History of removal of laparoscopic gastric banding device History of cystoscopy History of lobectomy of thyroid Mass of right parotid gland H/O laparoscopic adjustable gastric banding Hx of lithotripsy History of dilation and curettage History of delivery Hx of tonsillectomy Hx of gastric bypass Family History Mother Diabetes HTN (hypertension) Father Pancreatic cancer Diabetes HTN (hypertension) Maternal Grandmother Myocardial infarction Cancer Brother Pancreatic cancer Sister Uterine cancer Social History Household Members: Family Housing: House Are you a primary day care supervisor to a significant other at home: No Do you presently have visiting nurse or other home services: No Alcohol intake: never Patient Tobacco Use Status: Former Tobacco user Tobacco use type: Cigarette e-Cigarette/Vaping Use: Never Used Second Hand Smoke Exposure: No service: No Current occupational status: unemployed and disabled Sexual orientation: Straight/Heterosexual Gender identity: Female Cognitive needs: No Hearing needs: No Vision needs: Yes (glasses) Female Reproductive History Menstrual Age of Menarche: 10 Review of Systems Const All systems reviewed & are unremarkable except as noted in HPI and below Denies chills, Reports fatigue, Denies fever(s) and Reports poor appetite ENT Reports dizziness Card Denies chest pain and Reports dyspnea on exertion Resp Reports dyspnea on exertion Reports dysuria, Reports pelvic pain, Reports flank pain and Reports other (Hematuria) Neuro Reports dizziness Psych Reports anxiety Endo Reports fatigue Physical Exam Vital Signs: Last Vital Signs Temp 97.2 F 11/27/23 09:14 Pulse 69 11/27/23 09:14 BP 117/74 11/27/23 09:14 BMI result Body Mass Index 30.1 Const General: comfortable, no acute distress and anxious Orientation/consciousness: patient oriented x3 Limitations: language barrier Eyes Conjunctivae: conjunctival abnormal (Injected bilaterally no drainage) Resp Effort & Inspection: normal respiratory effort and able to speak in complete sentences Cardio Rate: regular rate Rhythm: regular rhythm GI Palpation (GI): Soft to palpation, Tenderness to palpation present (GI) (Diffuse-) and no guarding Percussion: Yes normal to percussion Auscultation: normal bowel sounds Neuro General: patient oriented x3 Extrem General: Yes full ROM Psych Appearance: well kempt Mental Status: mental status grossly normal Speech and movement: Clear speech present Affect: Anxious affect present Attitude: cooperative Thought process: Racing thoughts present Thought content: Normal thought content present Results Reviewed Results Reviewed: CT/CT abdomen pelvis w IV con IMPRESSION: Intussusception at the jejunojejunal anastomosis with mild dilatation of the proximal Miguel-en-Y loop. Please see meehan images. Focal abnormality right kidney suspicious for focal pyelonephritis with possible ureteritis as above. Follow-up recommended to ensure resolution and to exclude any new abnormality. Reviewed-ED note H 11/08/23, as well [facility] discharge note 11/12/2023 Dr. Georges note 02/2023 Assessment & Plan Assessment & Plan (1) Abdominal pain: Comment: Diffuse abdominal pain-difficult to assess, Code(s): R10.9 - Unspecified abdominal pain Qualifiers: Abdominal location: right upper quadrant Qualified Code(s): R10.11 - R ight upper quadrant pain Plan: Diffuse -difficult to assess,-referred back to urology/ED urgent care (2) Pelvic pain: Code(s): R10.2 - Pelvic and perineal pain (3) Hematuria: Comment: Hematuria begin few days ago Code(s): R31.9 - Hematuria, unspecified Plan: Urology (4) Anemia: Comment: Anemia unknown etiology-use further eval-she was somewhat confused due to course of events, certainly understandable Reviewed ED no as well as in coming records from [facility] However concerning recent discharge for sepsis now with recurrent hematuria, abdominal pain dysuria nausea and dizziness Code(s): D64.9 - Anemia, unspecified Qualifiers: Anemia type: iron deficiency Iron deficiency anemia type: inadequate dietary iron intake Qualified Code(s): D50.8 - Other iron deficiency anemias Plan: Diffuse -difficult to assess,-referred-back to ED /urgent care (5) Dyspnea: Code(s): R06.00 - Dyspnea, unspecified Plan: Sent to ED Plan After full review recent admission records, symptoms, Refer to treat acute symptoms Discussed urgent care verses ED-patient preference ED Return to GI be seen by MD-for further workup Patient Instructions: 63-year-old alert female anemia, abdominal pain, dizziness, hematuria, dysuria-r ecent admission for sepsis Refer to treat acute symptoms Accompanied by station detective to ED Return to GI be seen by MD-for further workup Coding Level of Care Code New Pt Level 4 (73416) Diagnoses Right upper quadrant abdominal pain R10.11 Abdominal location: right upper quadrant Pelvic pain R10.2 Hematuria R31.9 Iron deficiency anemia secondary to inadequate dietary iron intake D50.8 Anemia type: iron deficiency Iron deficiency anemia type: inadequate dietary iron intake Dyspnea R06.00 Time Spent (min) 50 Comment Clinic Licensed Practical Nurse
[2023-11-27 09:14] VITALS: BP 117/74; PULSE 69; TEMP 36.2; BMI 30.1
== END 2023-11-27 10:55 | disposition home or self-care (01) ==
PROVIDERS: PCP Internal Medicine; Visit Provider Physician Assistant
DX: R10.11 Right upper quadrant pain (principal); R10.2 Pelvic and perineal pain; R31.9 Hematuria, unspecified; D50.8 Other iron deficiency anemias; R06.00 Dyspnea, unspecified
CPT/HCPCS: 99204

== ENCOUNTER → 2023-11-27 09:03 | Outpatient (BNVA) | payer OTHER, SELFPAY | PROVIDERS: PCP Internal Medicine; Visit Provider Physician Assistant ==

== ENCOUNTER 2023-11-27 10:12 | Emergency (ER) | payer OTHER, SELFPAY ==
[2023-11-27 10:55] VITALS: BP 124/67; PULSE 65; RESP 18; TEMP 36.6; O2SAT 98; BMI 30.7
[2023-11-27 11:19] LABS: MANUAL DIFF FLAG NO
[2023-11-27 11:20] LABS: Basophils Absolute Auto 0.1 X10*3/uL (0.0-0.2); Basophils Percent Auto 0.8 % (0-2); Eosinophils Absolute Auto 0.1 X10*3/uL (0.0-0.4); Eosinophils Percent Auto 0.8 % (0-4); Hematocrit 33.5 % (37.0-47.0); Hemoglobin 10.7 g/dl (12.0-16.0); Imm Gran Abs Auto 0.02 X10*3/uL (0.00-0.03); Imm Gran Pct Auto 0.3 % (0.0-0.4); Lymphocytes Absolute Auto 1.6 X10*3/uL (1.2-4.9); Lymphocytes Percent Auto 25.4 % (20-40); Mean Corpuscular HGB Conc 31.9 g/dl (31.0-35.0); Mean Corpuscular Hemoglobin 28.8 pg (27.0-33.0); Mean Corpuscular Volume 90.3 fL (80.0-98.0); Mean Platelet Volume 9.8 fL (9.4-12.3); Monocytes Absolute Auto 0.3 X10*3/uL (0.1-1.2); Monocytes Percent Auto 5.4 % (2-11); Neutrophils Absolute Auto 4.2 x10*3/uL (2.0-8.3); Neutrophils Percent Auto 67.3 % (45-73); Platelet Count 331 X10*3/uL (160-400); Red Blood Count 3.71 X10*6/uL (4.20-5.50); Red Cell Distribution Width 14.7 % (11.0-16.0); White Blood Count 6.3 X10*3/uL (4.8-10.8)
[2023-11-27 11:29] LABS: Appearance Urine Clear; Color Urine Yellow; Glucose Urine UA Negative (Negative); Leukocyte Esterase Urine Trace (Negative); Nitrite Urine Negative (Negative); UMIC TRIGGER UACC YES; Urine Blood Trace (Negative); Urine Ketones Negative (Negative); Urine Protein Negative (Neg-Trace)
[2023-11-27 11:34] LABS: Alanine Aminotransferase 62 U/L (0-31); Albumin Level 3.9 g/dL (3.5-5.0); Alkaline Phosphatase 104 U/L (39-117); Anion Gap 13 (12-20); Aspartate Amino Transferase 53 U/L (5-31); Bilirubin Total 0.5 mg/dL (0.0-1.0); Blood Urea Nitrogen 15 mg/dL (9-16); Calcium 9.5 mg/dL (8.4-10.2); Carbon Dioxide 25 mmol/L (22-29); Chloride 108 mmol/L (96-108); Creatinine Clr Calc Pharmacy 74.8; Estimated Glomerular Filt Rate > 60; Glucose Random 115 mg/dL (60-115); Potassium 4.1 mmol/L (3.3-5.1); Sodium 142 mmol/L (135-145); Total Protein 7.4 g/dL (6.5-8.0)
[2023-11-27 11:47] LABS: WBC Urine 0-5 /HPF (0-5)
[2023-11-27 11:48] LABS: Bacteria Urine None Seen (None Seen); Hyaline Casts Urine 0-2 /LPF (0-2); Squamous Epithelial Cell Urine 0-2 /HPF (0-2)
--- NOTE | 2023-11-27 13:37 | ED.GENADULT ---
HPI - General Adult General Chief complaint: Abdominal Pain Stated complaint: Blood in urine-sepsis Time Seen by Provider: 11/27/23 13:37 Source: patient and staff interpreter Mode of arrival: ambulatory Limitations: language barrier History of Present Illness HPI narrative: Patient is a 63-year-old Qatari speaking female presenting to the ED with complaint of right flank pain and hematuria, ongoing since recent treatment for pyelonephritis with two courses of antibiotics. She was seen by GI today and referred to ED for her urinary symptoms. She denies recent fevers, nausea, vomiting, or diarrhea. Complains of suprapubic discomfort. States hematuria is typically more noticable in the mornings. States that she took 600mg of gabapentin that she had at home this morning for her pain with only mild, temporary reduction of pain. MD complaint: hematuria, flank pain Onset (ago): week(s) Location: right Severity: severe Quality: stabbing Pain Consistency: colicky Relieving factors: none Associated symptoms: other (hematuria) Treatments prior to arrival: other Related Data Home Medications Medication Instructions Recorded Confirmed albuterol sulfate 90 mcg/actuation 2 puff inhalation Q6H PRN 08/22/20 11/08/23 aerosol inhaler Shortness Of Breath Or Wheezing calcium citrate 500 mg PO BID 08/17/21 11/08/23 lancets 30 gauge (Pure Comfort #100 ea 08/17/21 11/08/23 Safety Lancets) Previous Rx's Medication Instructions Recorded folic acid 1 mg tablet 1 mg PO DAILY 90 days #90 tabs 02/09/22 metoprolol succinate 25 mg 25 mg PO DAILY 90 days #90 tabs 04/12/22 tablet,extended release 24 hr blood-glucose meter (FreeStyle #1 ea 08/14/22 Lite Meter kit) cholecalciferol (vitamin D3) 25 25 mcg PO DAILY 90 days #90 caps 08/14/22 mcg (1,000 unit) capsule acetaminophen 500 mg capsule 500 mg PO QID PRN pain 10 days #30 11/28/22 caps syringe with needle 3 mL 22 gauge #1 ea 01/14/23 x 1 (Carepoint Luer Lock Syringe with needle) blood sugar diagnostic (FreeStyle #50 ea 09/27/23 Lite Strips) lancets 28 gauge (FreeStyle #100 ea 09/27/23 Lancets) incontinence pad, liner, disp #156 ea 10/29/23 ascorbic acid (vitamin C) 1,000 mg 1 g PO DAILY 90 days #90 tabs 11/08/23 tablet methenamine hippurate 1 gram tablet 1 g PO DAILY 90 days #90 tabs 11/08/23 albuterol sulfate 2.5 mg/3 mL 2.5 mg (3 mL) inhalation RQ4H 11/09/23 (0.083 %) solution for nebulization WHILE AWAKE #75 mL ceftriaxone 1 gram solution for 1 g IV Q24H #1 ea 11/09/23 injection prednisone 20 mg tablet 40 mg (2 x 20 mg) PO DAILY #7 tabs 11/09/23 omeprazole 20 mg capsule,delayed 20 mg PO DAILY 90 days #90 caps 11/25/23 release pravastatin 20 mg tablet 20 mg PO DAILY 90 days #90 tabs 11/25/23 Allergies Allergy/AdvReac Type Severity Reaction Status Date / Time phentermine Allergy Intermediate Palpitation Verified 11/27/23 09:14 s Review of Systems Review of Systems: As per HPI. Yes all other systems are reviewed and are negative Constitutional: Constitutional: Reports as per HPI [facility] Past Medical History Onset Date is defined in the Problem List Problems that require an onset date and time if occurred within 24 hrs of arrival to the ED Aortic Dissection and Rupture; Neurologic impairment; Cardiopulmonary Arrest; Endotracheal Intubation; Insertion or Replacement of Mechanical Circulatory Assist Device Medical History Hepatomegaly Needle exposure Microscopic hematuria Murmur Frequent UTI Iron deficiency anemia Dysuria Labile blood glucose Anemia Dyslipidemia Pernicious anemia Pre-op examination Cervicalgia of wlpqbkxf-svezviq-gqobb region Vitamin D deficiency Osteoporosis 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 Asthma Paget's disease Fibromyalgia Nontoxic multinodular goiter Osteoarthritis HTN (hypertension) Surgical History History of excision of mass (08/21/23) History of removal of laparoscopic gastric banding device History of cystoscopy History of lobectomy of thyroid Mass of right parotid gland H/O laparoscopic adjustable gastric banding Hx of lithotripsy History of dilation and curettage History of delivery Hx of tonsillectomy Hx of gastric bypass Family History Family History Mother Diabetes HTN (hypertension) Father Pancreatic cancer Diabetes HTN (hypertension) Maternal Grandmother Myocardial infarction Cancer Brother Pancreatic cancer Sister Uterine cancer Social History Social History Household Members: Family Housing: House Are you a primary patient care associate to a significant other at home: No Do you presently have visiting nurse or other home services: No Alcohol intake: never Patient Tobacco Use Status: Former Tobacco user Tobacco use type: Cigarette Smoked in Last 30 Days: No e-Cigarette/Vaping Use: Never Used Second Hand Smoke Exposure: No Use of substances other than those prescribed or required for medical reasons: No Advance Directives: No Advance Directives Information Provided: Yes service: No Current occupational status: unemployed and disabled Sexual orientation: Straight/Heterosexual Gender identity: Female Cognitive needs: No Hearing needs: No Vision needs: Yes (glasses) Physical Exam ED Vital Signs: Vital Signs - 24 hr 11/27/23 10:55 11/27/23 13:46 Temperature 97.8 F 98.2 F Pulse Rate 65 65 Respiratory Rate 18 16 Blood Pressure 124/67 129/67 Pulse Oximetry 98 97 Oxygen Delivery Method Room Air Room Air BMI result Body Mass Index 30.7 Vital signs have been reviewed and appear to be correct. Blood pressure normal. Heart rate normal. Respiratory rate normal. Temperature normal. Oxygen saturation normal. Const General: cooperative, healthy appearing and no acute distress Orientation/consciousness: oriented to person, oriented to place, oriented to time and patient oriented x3 Limitations: no limitations [facility] Head: Yes normocephalic and Yes atraumatic Ears: external ears normal General nose exam: Normal external nose present Face and sinus: Yes face symmetric Mouth: oropharynx normal and moist mucous membranes Throat: Yes uvula midline Eyes Pupils: Equal, round and reactive pupils present Neck Neck: Yes normal visual inspection and Yes supple Resp Effort & Inspection: normal respiratory effort and able to speak in complete sentences Auscultation: clear to auscultation bilaterally Cardio Rate: regular rate Rhythm: regular rhythm Heart sounds: S1 normal heart sound present and S2 normal heart sound present GI Palpation (GI): Soft to palpation and Tenderness to palpation present (GI) suprapubicly (mild) Auscultation: normoactive bowel sounds General: Yes no CVA tenderness Back/Spine/Pelvis Back: no CVA tenderness Skin General skin exam: elasticity normal and turgor normal Neuro General: oriented to person, oriented to place, oriented to time, patient oriented x3, moves all extremities, no focal motor deficits and CN's II-XI intact bilaterally Cranial nerves: Yes Equal, round and reactive pupils present Cognition (Neuro): normal cognition Extrem General: Yes full ROM, Yes no pedal edema and Yes no calf tenderness Psych Mental Status: mental status grossly normal Affect: normal affect Thought process: Normal thought process present Medical Decision Making Medical Decision Making [facility] Narrative: Patient is a 63-year-old Qatari speaking female presenting to the ED with complaint of right flank pain and hematuria, ongoing since recent treatment for pyelonephritis with two courses of antibiotics. On exam patient is awake, A+Ox3, VS WNL, afebrile, normal neurological exam without focal deficits, physical exam findings as above. Given reported symptoms and physical exam findings, initial differential includes UTI, pyelonephritis. Labs notable for no leukocytosis, mild anemia consistent with baseline, no evidence of CURTIS. Urinalysis notable only for trace leukocytes, trace blood, no nitrites, no bacteria. CT from 11/08/2023 reviewed, no calculi noted on exam at that time so unlikely renal or ureteral calculi. Do not feel additional imaging is indicated at this time. Will medicate patient with ketorolac in the ED, discharge home to follow up with urology outpatient. All results reviewed with patient who is agreeable to discharge and outpatient follow up. Return precautions discussed. Patient verbalized understanding of and agreement with plan. Differential Diagnosis Differential Diagnoses: The differential diagnosis associated with the presentation includes As per [facility] Admission/Observation Consideration of admission/observation: Escalation of care including admission/observation considered Lab Data [facility] Lab Attestation statement: I reviewed the patient's lab results. As per [facility] 11/27/23 11:14 11/27/23 11:14 Labs: Lab Results 11/27/23 Range/Units 11:14 WBC 6.3 (4.8-10.8) X10*3/uL RBC 3.71 L (4.20-5.50) X10*6/uL Hgb 10.7 L (12.0-16.0) g/dl Hct 33.5 L (37.0-47.0) % MCV 90.3 (80.0-98.0) fL MCH 28.8 (27.0-33.0) pg MCHC 31.9 (31.0-35.0) g/dl RDW 14.7 (11.0-16.0) % Plt Count 331 (160-400) X10*3/uL MPV 9.8 (9.4-12.3) fL Immature Gran % (Auto) 0.3 (0.0-0.4) % Neut % (Auto) 67.3 (45-73) % Lymph % (Auto) 25.4 (20-40) % [place] % (Auto) 5.4 (2-11) % Eos % (Auto) 0.8 (0-4) % Baso % (Auto) 0.8 (0-2) % Lymph # (Auto) 1.6 (1.2-4.9) X10*3/uL [place] # (Auto) 0.3 (0.1-1.2) X10*3/uL Eos # (Auto) 0.1 (0.0-0.4) X10*3/uL Baso # (Auto) 0.1 (0.0-0.2) X10*3/uL Abs Immat Gran (auto) 0.02 (0.00-0.03) X10*3/uL Absolute Neuts (auto) 4.2 (2.0-8.3) x10*3/uL Absolute Nucleated RBC 0.000 (0.0-0.012) X10*3/uL Nucleated RBC % (auto) 0.0 (0.0-0.2) /100WBC Sodium 142 (135-145) mmol/L Potassium 4.1 (3.3-5.1) mmol/L Chloride 108 (96-108) mmol/L Carbon Dioxide 25 (22-29) mmol/L Anion Gap 13 (12-20) BUN 15 (9-16) mg/dL Creatinine 0.66 (0.5-1.4) mg/dL Estim Creat Clear Calc 74.8 Estimated GFR > 60 Random Glucose 115 (60-115) mg/dL Calcium 9.5 D (8.4-10.2) mg/dL Total Bilirubin 0.5 (0.0-1.0) mg/dL AST 53 H (5-31) U/L ALT 62 H (0-31) U/L Alkaline Phosphatase 104 (39-117) U/L Total Protein 7.4 (6.5-8.0) g/dL Albumin 3.9 (3.5-5.0) g/dL Urine Color Yellow Urine Appearance Clear Urine pH 6.0 (5.0-9.0) Ur Specific [place] 1.020 (1.005-1.025) Urine Protein Negative (Neg-Trace) mg/dL Urine Glucose (UA) Negative (Negative) mg/dL Urine Ketones Negative (Negative) mg/dL Urine Blood Trace H (Negative) Urine Nitrite Negative (Negative) Ur Leukocyte Esterase Trace H (Negative) Urine RBC 3-5 H (0-2) /HPF Urine WBC 0-5 (0-5) /HPF Ur Squamous Epith Cells 0-2 (0-2) /HPF Urine Bacteria None Seen (None Seen) Hyaline Casts 0-2 (0-2) /LPF External Record Review External record reviewed: Inpatient record, Office record and Outpatient record Tests considered The following testing was considered but not selected: Considered ultrasound or CT, however after review of EMR,not indicated at this time. Prescription Management I considered prescription management with: Pain Medication Discharge Plan Discharge Clinical Impression: Hematuria, Right flank pain Patient Disposition: Home, Self-Care Instructions: Hematuria (ED), Flank Pain (ED) Additional Instructions: Usted fue evaluado hoy en el departamento de emergencias por harley en la orina y dolor en el flanco derecho. Odonnell evaluaci?n no revel? condiciones que requirieran tratamiento m?dico de emergencia en charis momento. Debe llamar al consultorio de urolog?a hoy para informar gary s?ntomas y programar carolina gemma de seguimiento con el Dr. Henning. Debe regresar al departamento de emergencias si presenta fiebre de 100.4? F o m?s, v?mitos persistentes, incapacidad para orinar, aumento de harley en la orina, aumento del dolor o cualquier otro s?ntoma preocupante. Prescriptions: No Action folic acid 1 mg tablet 1 mg PO DAILY 90 Days Qty: 90 3RF metoprolol succinate 25 mg tablet extended release 24 hr 25 mg PO DAILY 90 Days Qty: 90 1RF cholecalciferol (vitamin D3) 25 mcg (1,000 unit) capsule 25 mcg PO DAILY 90 Days Qty: 90 1RF (DME) FreeStyle Lite Strips Strip See Rx Instructions .ROUTE .MEDSUPPLY Qty: 50 11RF Rx Instructions: to test 2 to 3 times a day as directed (DME) lancets [FreeStyle Lancets] 28 gauge misc See Rx Instructions .ROUTE .MEDSUPPLY Qty: 100 11RF Rx Instructions: Use 1 lancet once a day (DME) incontinence pad, liner, disp Pad See Rx Instructions .Route Qty: 156 11RF Rx Instructions: As directed pravastatin 20 mg tablet 20 mg PO DAILY 90 Days Qty: 90 1RF omeprazole 20 mg capsule,delayed release(DR/EC) 20 mg PO DAILY 90 Days Qty: 90 5RF ceftriaxone 1 gram Recon Soln 1 g IV Q24H Qty: 1 0RF albuterol sulfate 2.5 mg /3 mL (0.083 %) Solution For Nebulization 2.5 mg inhalation RQ4H WHILE AWAKE Qty: 75 0RF prednisone 20 mg Tablet 40 mg PO DAILY Qty: 7 0RF (DME) blood-glucose meter [FreeStyle Lite Meter] Kit See Rx Instructions .Route Qty: 1 0RF Rx Instructions: As directed (DME) Carepoint Luer Lock Syr-needle 3 mL 22 gauge x 1 syringe See Rx Instructions .Route Qty: 1 1RF Rx Instructions: As directed acetaminophen 500 mg capsule 500 mg PO QID PRN (Reason: pain) 10 Days Qty: 30 0RF albuterol sulfate 90 mcg/actuation HFA aerosol inhaler 2 puff inhalation Q6H PRN (Reason: Shortness Of Breath Or Wheezing) (DME) lancets [Pure Comfort Safety Lancets] 30 gauge misc See Rx Instructions .ROUTE DAILY Qty: 100 Rx Instructions: As directed calcium citrate 250 mg calcium tablet 500 mg PO BID methenamine hippurate 1 gram tablet 1 g PO DAILY 90 Days Qty: 90 1RF ascorbic acid (vitamin C) 1,000 mg tablet 1 g PO DAILY 90 Days Qty: 90 1RF Referrals: [facility] Urology Services [Provider Group] Print Language: Qatari
[2023-11-27 13:46] VITALS: BP 129/67; PULSE 65; RESP 16; TEMP 36.8; O2SAT 97
--- NOTE | 2023-11-27 13:53 | PC.NURSE ---
a&ox4, vss and up to date. pt presents to the ED d/t 01/25 abd pain that radiates to bilateral flanks. pt c/o hematuria. urine sample obtained/sent. denies all other urinary sx. pt states she has had fever/chills for the past few days but is currently afebrile at this time. no sob/wob noted. respirations even and unlabored. call richards placed within reach.
[2023-11-27] MEDS: Ketorolac Tromethamine 30 MG/ML VIAL IM (15:11)
--- NOTE | 2023-11-27 15:14 | PC.NURSE ---
medication administered per provider order.
== END 2023-11-27 15:27 | disposition home or self-care (01) ==
PROVIDERS: Emergency Provider Emergency Medicine; PCP Internal Medicine
DX: R31.9 Hematuria, unspecified (principal); R10.9 Unspecified abdominal pain; I10 Essential (primary) hypertension; E78.00 Pure hypercholesterolemia, unspecified; Z79.02 Long term (current) use of antithrombotics/antiplatelets; Z79.899 Other long term (current) drug therapy
CPT/HCPCS: 36415; 80053; 81001; 85025; 96372; 99202; 99284; J1885

== ENCOUNTER 2023-12-02 13:28 | Outpatient (AMB) | payer OTHER, SELFPAY ==
--- NOTE | 2023-12-02 13:30 | A.OFFVIS_ITS ---
Intake Intake Visit Reasons: ER Follow up Intake Note: Patient presents today for a ER follow-up on: Meds- None Allergies to Antibiotic- No Known Allergies Blood Thinner- None Patient Symptoms: Bladder Pain Recycle Coordinator Required: Yes Recycle Coordinator Language: Medical Bill Processor Name: RHEA Gould Information Interpreted: non-clinical & clinical Accompanied by: Self / Same As Patient Allergies phentermine Allergy (Intermediate, Verified 12/16/23 08:58) Palpitations Medication List - Last Reconciled 12/02/23 by Saige Henning MD acetaminophen 500 mg PO QID PRN 10 days albuterol sulfate 2.5 mg (3 mL) inhalation RQ4H WHILE AWAKE albuterol sulfate 90 mcg/actuation 2 puffs inhalation Q6H PRN ascorbic acid (vitamin C) 1 g PO DAILY 90 days blood sugar diagnostic (FreeStyle Lite Strips) to test 2 to 3 times a day as directed blood-glucose meter (FreeStyle Lite Meter kit) As directed calcium citrate 500 mg PO BID ceftriaxone 1 g IV Q24H cholecalciferol (vitamin D3) 25 mcg PO DAILY 90 days estradiol (Vagifem) 10 mcg vaginal 2XW folic acid 1 mg PO DAILY 90 days hydroxyzine pamoate 50 mg PO BEDTIME ibuprofen 600 mg PO Q6H PRN incontinence pad, liner, disp As directed lancets (FreeStyle Lancets) Use 1 lancet once a day lancets (Pure Comfort Safety Lancets) As directed methenamine hippurate 1 g PO DAILY 90 days metoprolol succinate ER 25 mg PO DAILY 90 days omeprazole 20 mg PO DAILY 90 days pravastatin 20 mg PO DAILY 90 days prednisone 40 mg (2 x 20 mg) PO DAILY syringe with needle ([employer] Luer Lock Syringe with needle) As directed HPI HPI Comments History of Present Illness Details 12/02/23--Maura is a 62-year-old female wh o presents today to the office for FU, she was in the ED on 11/27/23 with complaints of abdominal, bladder pain and hematuria. She previously had a CTAP w/contrast done on 11/09/23 - and in regards to urinary tract; right kidney changes suggestive of focal pyelonephritis, negative for nephrolithiasis Review of chart: 07/10/2023? Maura is followed today for bladder pain. She was last seen by me on 03/25/2023 for bladder pain. Discussed weekly bladder installations for 4 weeks, then every 2 weeks and Vagifem suppository twice a week was ordered at that time. She has a history of diabetes and gastric bypass. She had noted improvement with the bladder instillations. She has not had a bladder instillation since 05/17/2023 and is complaining that the bladder pressure pain is back. She states that the hydroxyzine did not help her and seem to cause more burning with urination. 03/25/2023? The patient is Nigerian speaking female. 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 LV--12/06/22-- seen in the office for recurrent UTIs. Comorbidity diabetes. h/o Gastric bypass prior cardiology for evaluation for tachycardia.? also states she needed to have a breast biopsy done s/p cystoscopy hydrodistension- findings bladder capacity 700 mL, no glomerulations visualized previous pelvic exam, point bladder tenderness--treated with Vistaril 25 mg qhs.? and Bladder instillations weekly for 6 weeks, then maintenance q month The patient is undergoing bladder installations. Complains having pain in the pelvic region, but mentions benefits with weekly installations as compared to monthly. The patient was prescribed with Vistrail 25 mg QD and is not sure is she is taking it.? Denies breast cancer family history in sisters and mother. Imagin05/17/22--CT ABDOMEN AND PELVIS WITH CONT RAST-- kidneys wnl, no renal calculi?? Plan: The patient will call the office to let us know if she is taking Vistrail 25 mg QD pending which Vistrail 50 mg will be ordered. Weekly bladder installations for 4 weeks, then every 2 weeks. Vagifem suppository twice a? week was ordered. 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 Asthma Paget's disease Fibromyalgia Nontoxic multinodular goiter Osteoarthritis HTN (hypertension) Surgical History History of excision of mass (08/21/23) History of removal of laparoscopic gastric banding device History of cystoscopy History of lobectomy of thyroid Mass of right parotid gland H/O laparoscopic adjustable gastric banding Hx of lithotripsy History of dilation and curettage History of delivery Hx of tonsillectomy Hx of gastric bypass Family History Mother Diabetes HTN (hypertension) Father Pancreatic cancer Diabetes HTN (hypertension) Maternal Grandmother Myocardial infarction Cancer Brother Pancreatic cancer Sister Uterine cancer Social History Household Members: Family Housing: House Are you a primary primary care pediatrician to a significant other at home: No Do you presently have visiting nurse or other home services: No Alcohol intake: never Patient Tobacco Use Status: Former Tobacco user Tobacco use type: Cigarette e-Cigarette/Vaping Use: Never Used Second Hand Smoke Exposure: No service: No Current occupational status: unemployed and disabled Sexual orientation: Straight/Heterosexual Gender identity: Female Cognitive needs: No Hearing needs: No Vision needs: Yes (glasses) Female Reproductive History Menstrual Age of Menarche: 10 Review of Systems Const All systems reviewed & are unremarkable except as noted in HPI and below Reports no additional complaints Eyes Reports no additional complaints ENT Reports no additional complaints Card Denies dyspnea Resp Denies cough and Denies dyspnea GI Reports no additional complaints Reports no additional complaints Musc Reports no additional complaints Skin/Breast Denies rash and Denies unusual bruising Neuro Reports no additional complaints Psych Reports no additional complaints Endo Reports no additional complaints Moses/Lymph Reports no additional complaints Aller/Immun Reports no additional complaints Results AMB Urinalysis, Automated UA Leukoctes 0 Denilson/uL Last Edit by RHEA Gould on 12/02/23 13:50 UA Nitrite Negative Last Edit by RHEA Gould on 12/02/23 13:50 UA Urobilinogen 0.2 mg/dL Last Edit by Gabino Ayala Uday on 12/02/23 13:5 0 UA Protein 15 mg/dL Last Edit by Gabino Ayala [facility] on 12/02/23 13:50 UA pH 6.0 Last Edit by Gabino Ayala Uday on 12/02/23 13:50 UA Blood 25 Brady/uL Last Edit by Gabino Ayala [facility] on 12/02/23 13:50 1+ Gabino Ayala 12/02/23 13:50 UA Specific [place] 1.030 Last Edit by RHEA Gould on 12/02/23 13: 50 UA Ketone Negative Last Edit by Gabino Ayala Uday on 12/02/23 13:50 UA Bilirubin 0 mg/dL Last Edit by Gabino Ayala Uday on 12/02/23 13:50 UA Glucose 0 mg/dL Last Edit by Gabino Ayala [facility] on 12/02/23 13:50 Results Reviewed Results Reviewed: Laboratory Last Values Urine pH (Auto) 6.0 12/02/23 13:42 Specific [place] (Auto) 1.030 12/02/23 13:42 Urine Protein (Auto) 15 mg/dL 12/02/23 13:42 Glucose (UA)(Auto) 0 mg/dL 12/02/23 13:42 Urine Ketones (Auto) Negative 12/02/23 13:42 Urine Blood (Auto) 25 Brady/uL 12/02/23 13:42 Urine Nitrite (Auto) Negative 12/02/23 13:42 Urine Bilirubin (Auto) 0 mg/dL 12/02/23 13:42 Urine Urobilinogen (Auto) 0.2 mg/dL 12/02/23 13:42 Leukocyte Esterase (Auto) 0 Denilson/uL 12/02/23 13:42 Date of Service: 11/08/23 EXAMINATION: CT ABDOMEN AND PELVIS WITH CONTRAST CLINICAL INFORMATION: Generalized abdominal pain COMPARISON: 08/28/2023 TECHNIQUE: Multidetector volumetric images were obtained from the superior aspect of the liver through the pubic symphysis following administration 85 mL of Omnipaque 350 intravenous contrast. Sagittal and coronal reformatted images were obtained on the technologist's workstation. Oral contrast: No This CT examination was performed using dose optimization techniques as appropriate, variously including the following: *Automated exposure control *Adjustment of mA and/or kV according to patient size (this includes techniques or standardized protocols for targeted exams where dose is matched to indication/reason for exam; i.e. extremities or head) *Use of iterative reconstruction technique DLP: 618 mGy-cm FINDINGS: LUNG BASES: The visualized lung bases are unremarkable. LIVER, GALLBLADDER, AND BILIARY TREE: Coarse calcific aeration anterolaterally right lobe. Mild prominence of the biliary tree similar. No choledocholithiasis. No discrete lesion. Clips consistent with cholecystectomy. PANCREAS: Unremarkable. SPLEEN: Splenule noted once again. ADRENAL GLANDS: Unremarkable. KIDNEYS AND URETERS: Within the right midpole kidney posteriorly, there is a approximately 2 cm decreased ill-defined attenuation is since baseline. The right urinary collecting system demonstrates mild hyperenhancement especially proximally. No stones or hydronephrosis. No left-sided abnormality. No perinephric abnormality. BLADDER: Unremarkable. GASTROINTESTINAL TRACT: There is evidence for a Miguel-en-Y gastric bypass surgical changes. At the jejunojejunal anastomosis, there appears to be intussusception causing mild dilatation of the proximal Miguel-en-Y loop. Polyps measure up to 3.8 cm. Distal bowel loops are decompressed. There are no fluid collections or inflammatory changes seen. ABDOMINAL WALL: No significant hernia is appreciated. LYMPH NODES: Normal. VASCULAR: Unremarkable. PELVIC VISCERA: Unremarkable. OSSEOUS STRUCTURES: Unremarkable. IMPRESSION: Intussusception at the jejunojejunal anastomosis with mild dilatation of the proximal Miguel-en-Y loop. Please see meehan images. Focal abnormality right kidney suspicious for focal pyelonephritis with possible ureteritis as above. Follow-up recommended to ensure resolution and to exclude any new abnormality. Assessment & Plan Assessment & Plan (1) Microscopic hematuria: Code(s): R31.29 - Other microscopic hematuria (2) Frequent UTI: Code(s): N39.0 - Urinary tract infection, site not specified (3) Interstitial cystitis: Code(s): N30.10 - Interstitial cystitis (chronic) without hematuria (4) Bladder pain: Code(s): R39.89 - Other symptoms and signs involving the genitourinary system Plan Cont Bladder instillations Hydroxyzine 50 mg qhs Repeat cysto hydrodistension Orders: Orders AMB Urinalysis Automated 12/02/23 Z13.9 - Encounter for screening, unspecified Urine Culture 12/02/23 N39.0 - Urinary tract infection, site not specified Medications: New hydroxyzine pamoate 50 mg PO BEDTIME 90 caps 1RF estradiol (Vagifem) 10 mcg vaginal 2XW 8 tabs 3RF Refilled methenamine hippurate 1 g PO DAILY 90 tabs 1RF 90 days N30.10 - Interstitial cystitis (chronic) without hematuria, N39.0 - Urinary tract infection, site not specified Patient Instructions: The patient had an opportunity to ask questions regarding treatment plan. All questions were answered. Imaging, Laboratory studies and physical exam results were discussed and reviewed in detail. No major barriers to understanding were identified. The patient expressed understanding and agreement with the above treatment plan. The patient is aware they should contact our office by phone for worsening of their current condition or the appearance of new symptoms. Compliance is encouraged with any medications and followup testing that is ordered. It is a privilege to be allowed the opportunity to participate in the urologic care of your patient. If you have any questions or concerns regarding treatment for the above conditions please do not hesitate to contact me. The office telephone contact is [phone]. This note is constructed in part using voice recognition software. While every effort has been made to ensure accuracy emergency department clinician errors may have been included. Yours sincerely, Saige Henning MD Coding Level of Care Code Est Pt Level 4 (83181) Diagnoses Microscopic hematuria R31.29 Frequent UTI N39.0 Interstitial cystitis N30.10 Bladder pain R39.89
== END 2023-12-02 14:48 | disposition home or self-care (01) ==
LOC: HO.HUSH 13:28
PROVIDERS: PCP Internal Medicine; Visit Provider Urology
DX: R31.29 Other microscopic hematuria (principal); N39.0 Urinary tract infection, site not specified; N30.10 Interstitial cystitis (chronic) without hematuria; R39.89 Other symptoms and signs involving the genitourinary system
CPT/HCPCS: 99214

== ENCOUNTER 2023-12-02 13:28 | Outpatient (REF) | payer OTHER, SELFPAY | END 2023-12-02 13:29 | disposition home or self-care (01) | LOC: HO.LAB 13:28 | PROVIDERS: PCP Internal Medicine; Visit Provider Urology | DX: N30.10 Interstitial cystitis (chronic) without hematuria (principal); R31.29 Other microscopic hematuria; R39.89 Other symptoms and signs involving the genitourinary system | CPT/HCPCS: 81003; 87086; 99212 ==

== ENCOUNTER 2023-12-09 10:01 | Outpatient (AMB) | payer OTHER, SELFPAY ==
--- NOTE | 2023-12-09 10:06 | AM.OFFVISNUR ---
Intake Intake Visit Reasons: IC instillation week #1 Allergies phentermine Allergy (Intermediate, Verified 12/02/23 13:42) Palpitations Office Procedures Bladder/Catheter Procedure Details: pt presents to office for IC instillation- before instillation pt reports UTI like symptoms, requesting UA. UA done- no infection present. 14 fr straight cath used to empty bladder and instill: 10 mls bupivicaine 10 mls lidocaine 2% 1 lidocaine urojet (10 mls) 2 mls heparin (10,000 units) 1 ml solumedro (40 mg) 39990-Claetiqxcb of Bladder 24767-Orvxgf Bladder Catheter Procedure code (CPT) selection complete Results AMB Urinalysis, Automated UA Leukoctes 70 Denilson/uL Last Edit by Juli Andino RN on 12/09/23 10:14 UA Nitrite Negative Last Edit by Juli Andino RN on 12/09/23 10:14 UA Urobilinogen 0 mg/dL Last Edit by Juli Andino RN on 12/09/23 10:14 UA Protein 15 mg/dL Last Edit by Juli Andino RN on 12/09/23 10:14 UA pH 6.0 Last Edit by Juli Andino RN on 12/09/23 10:14 UA Blood 80 Brady/uL Last Edit by Juli Andino RN on 12/09/23 10:14 UA Specific [place] 1.025 Last Edit by Juli Andino RN on 12/09/23 10:14 UA Ketone Negative Last Edit by Juli Andino RN on 12/09/23 10:14 UA Bilirubin 0 mg/dL Last Edit by Juli Andino RN on 12/09/23 10:14 UA Glucose 0 mg/dL Last Edit by Juli Andino RN on 12/09/23 10:14 Coding CPT Codes Bladder/Catheter Procedure - CPT: 66609-Sykmubrhtz of Bladder ([id number]) Bladder/Catheter Procedure - CPT: 54308-Uxjake Bladder Catheter ([id number]) Assessment & Plan Assessment & Plan Orders: Orders AMB Bladder/Catheter Procedure Today N30.10 - Interstitial cystitis (chronic) without hematuria AMB Urinalysis Automated Today N30.10 - Interstitial cystitis (chronic) without hematuria
== END 2023-12-09 11:01 | disposition home or self-care (01) ==
PROVIDERS: PCP Internal Medicine; Visit Provider Urology
DX: N30.10 Interstitial cystitis (chronic) without hematuria (principal)

== ENCOUNTER → 2023-12-09 10:01 | Outpatient (BNVA) | payer OTHER, SELFPAY | PROVIDERS: PCP Internal Medicine; Visit Provider Urology | DX: N30.10 Interstitial cystitis (chronic) without hematuria (principal) | CPT/HCPCS: 51700; 51701; 81003 ==

== ENCOUNTER 2023-12-16 08:51 | Outpatient (REF) | payer OTHER, SELFPAY ==
[2023-12-16 10:56] LABS: MANUAL DIFF FLAG NO
[2023-12-16 11:31] LABS: Appearance Urine Clear; Color Urine Yellow; Glucose Urine UA Negative (Negative); Leukocyte Esterase Urine Negative (Negative); Nitrite Urine Negative (Negative); PH 6.5 (5.0-9.0); UMIC TRIGGER UACC YES; Urine Blood Small (1+) (Negative); Urine Ketones Negative (Negative); Urine Protein Negative (Neg-Trace)
[2023-12-16 11:36] LABS: Basophils Absolute Auto 0.1 X10*3/uL (0.0-0.2); Basophils Percent Auto 0.7 % (0-2); Eosinophils Absolute Auto 0.1 X10*3/uL (0.0-0.4); Eosinophils Percent Auto 1.4 % (0-4); Hematocrit 33.6 % (37.0-47.0); Hemoglobin 10.6 g/dl (12.0-16.0); Imm Gran Abs Auto 0.02 X10*3/uL (0.00-0.03); Imm Gran Pct Auto 0.3 % (0.0-0.4); Lymphocytes Absolute Auto 1.1 X10*3/uL (1.2-4.9); Lymphocytes Percent Auto 15.9 % (20-40); Mean Corpuscular HGB Conc 31.5 g/dl (31.0-35.0); Mean Corpuscular Hemoglobin 28.7 pg (27.0-33.0); Mean Corpuscular Volume 91.1 fL (80.0-98.0); Mean Platelet Volume 10.2 fL (9.4-12.3); Monocytes Absolute Auto 0.5 X10*3/uL (0.1-1.2); Monocytes Percent Auto 7.5 % (2-11); Neutrophils Absolute Auto 5.3 x10*3/uL (2.0-8.3); Neutrophils Percent Auto 74.2 % (45-73); Platelet Count 375 X10*3/uL (160-400); Red Blood Count 3.69 X10*6/uL (4.20-5.50); Red Cell Distribution Width 14.8 % (11.0-16.0); White Blood Count 7.2 X10*3/uL (4.8-10.8)
[2023-12-16 11:57] LABS: Bacteria Urine None Seen (None Seen); Hyaline Casts Urine 0-2 /LPF (0-2); RBC Urine >20 /HPF (0-2); Squamous Epithelial Cell Urine 0-2 /HPF (0-2); WBC Urine 0-5 /HPF (0-5)
[2023-12-16 12:43] LABS: Alanine Aminotransferase 45 U/L (0-31); Albumin Level 3.9 g/dL (3.5-5.0); Alkaline Phosphatase 117 U/L (39-117); Anion Gap 11 (12-20); Aspartate Amino Transferase 41 U/L (5-31); Bilirubin Total 0.4 mg/dL (0.0-1.0); Blood Urea Nitrogen 17 mg/dL (9-16); Calcium 9.5 mg/dL (8.4-10.2); Carbon Dioxide 26 mmol/L (22-29); Chloride 107 mmol/L (96-108); Estimated Glomerular Filt Rate > 60; Glucose Random 88 mg/dL (60-115); Potassium 3.8 mmol/L (3.3-5.1); Sodium 140 mmol/L (135-145); Total Protein 7.4 g/dL (6.5-8.0)
[2023-12-16 12:52] LABS: Folate 11.9 ng/mL (> or = 4.0); Vitamin B12 922 pg/mL (200-900)
[2023-12-16 13:17] LABS: Ferritin 36 ng/mL (10-250); Vitamin D 25-OH Total 27.5 ng/mL (>30)
[2023-12-18 18:24] LABS: Zinc 53 mcg/dL (60-130)
[2023-12-19 11:23] LABS: Alpha-Tocopherol 12.5 mg/L (5.7-19.9); Beta-Gamma Tocopherol <1.0 mg/L (<=4.3)
[2023-12-19 17:22] LABS: Vitamin A 40 mcg/dL (38-98)
[2023-12-20 12:28] LABS: Vitamin B6 6.2 ng/mL (2.1-21.7)
[2023-12-20 19:23] LABS: Vitamin B5 (Pantothenic Acid) <40 ng/mL (<275)
[2023-12-21 10:48] LABS: Vitamin B1 13 nmol/L (8-30)
[2023-12-21 13:24] LABS: Vitamin C 0.2 mg/dL (0.3-2.7)
[2023-12-22 16:38] LABS: Nicotinamide 28 ng/mL; Vit B3 - Nicotinic Acid <20 ng/mL
[2023-12-24 13:33] LABS: Vitamin K1 430 pg/mL (130-1500)
== END 2023-12-16 08:52 | disposition home or self-care (01) ==
LOC: HO.LAB 08:51
PROVIDERS: PCP Internal Medicine; Visit Provider Internal Medicine Gastroenterology
DX: K21.9 Gastro-esophageal reflux disease without esophagitis (principal); K59.00 Constipation, unspecified; K56.1 Intussusception; K75.81 Nonalcoholic steatohepatitis (NASH); R31.9 Hematuria, unspecified; R10.9 Unspecified abdominal pain; R10.11 Right upper quadrant pain; R30.0 Dysuria
CPT/HCPCS: 36415; 80053; 81001; 82180; 82306; 82607; 82728; 82746; 84207; 84425; 84446; 84590; 84591; 84597; 84630; 85025; 99212

== ENCOUNTER 2023-12-16 08:51 | Outpatient (AMB) | payer OTHER, SELFPAY ==
--- NOTE | 2023-12-16 08:58 | A.OFFVIS_ITS ---
Intake Vital Signs 12/16/23 09:00 Height 5 ft Weight 157 lb BMI 30.7 BP 128/72 Blood Pressure Location Lt brachial Position Sitting Pulse 64 Intake Visit Reasons: PER BONITA Intake Note: Patient follow up abdominal pain. Bonita former patient Patient cc: abdominal pain, GERD, Nauseas, and constipation. Director Dental Services Required: Yes Director Dental Services Name: [facility] interpeter Accompanied by: Self / Same As Patient Allergies phentermine Allergy (Intermediate, Verified 12/16/23 08:58) Palpitations HPI PER BONITA HPI Details 63 y/o F w/ , HTN, HLD,hx of gastric lap band with conversion to RYGB, hx of nephrolithiasis with lithotripsy 2019, mild intermittent asthma, fibromyalgia, osteoarthritis, Paget's disease, and parotid gland mass who I am seeing for f/u RECAP: Recent admission for acute pyelonephritis, sepsis transfer to [place] in October- for jejuno jejunal intussusception also has hx of ANEUDY and seeing Dr. Georges HGb has been chronically stable at around 10 g/dl INTERIM: she has mid abdominal pain, also in the mid back and lower abdomen, going on for 6 months food can make pain worse melvin apples, strawberry, acid type foods she has nausea always no vomiting denies diarrhea, chronci constipation with forcing out stool or supps no blood in stool she also has bad reflux she takes ibuprofen once daily for 1-2 months she has hematuria at times EXAM: GENERAL: The patient is well developed and nontoxic. VITAL SIGNS:see workflow HEENT: Nonicteric sclerae, PERRLA, EOMI. Oropharynx clear. Moist mucous membranes. Conjunctivae appear well perfused. No thyroid mass. CHEST: Chest wall is nontender. HEART: Regular rate and rhythm without murmurs. LUNGS: Clear to auscultation bilaterally. ABDOMEN: Soft, positive bowel sounds, generalized tenderness, no organomegaly.no flank tenderness SKIN: No rash, no excessive bruising, petechiae, or purpura. NEUROLOGIC: Cranial nerves II-XII intact without motor/sensory deficit. psych: nml affect A/P: 1/ jejuno jejunal intussusception maybe causing her abdominal pain, but she also has kidney issues 2/ chronic anemia maybe due to hematuria and malabsorption PLAN: 1/ recheck UA and culture, US abdo 2/ labs incl Mv levels 3/ refer bariatric in [place] for ?bowel pexy 4/ EGD and colonoscopy to r/o other path ology 5/ Levsin trial with zofran and see if h elps PFSH Medical History Hepatomegaly Needle exposure Microscopic hematuria Murmur Frequent UTI Iron deficiency anemia Dysuria Labile blood glucose Anemia Dyslipidemia Pernicious anemia Pre-op examination Cervicalgia of glocjofq-jygqlpx-ftpxz region Vitamin D deficiency Osteoporosis 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 Asthma Paget's disease Fibromyalgia Nontoxic multinodular goiter Osteoarthritis HTN (hypertension) Surgical History History of excision of mass (08/21/23) History of removal of laparoscopic gastric banding device History of cystoscopy History of lobectomy of thyroid Mass of right parotid gland H/O laparoscopic adjustable gastric banding Hx of lithotripsy History of dilation and curettage History of delivery Hx of tonsillectomy Hx of gastric bypass Family History Mother Diabetes HTN (hypertension) Father Pancreatic cancer Diabetes HTN (hypertension) Maternal Grandmother Myocardial infarction Cancer Brother Pancreatic cancer Sister Uterine cancer Social History Household Members: Family Housing: House Are you a primary vocational childcare teacher to a significant other at home: No Do you presently have visiting nurse or other home services: No Alcohol intake: never Patient Tobacco Use Status: Former Tobacco user Tobacco use type: Cigarette e-Cigarette/Vaping Use: Never Used Second Hand Smoke Exposure: No service: No Current occupational status: unemployed and disabled Sexual orientation: Straight/Heterosexual Gender identity: Female Cognitive needs: No Hearing needs: No Vision needs: Yes (glasses) Female Reproductive History Menstrual Age of Menarche: 10 Physical Exam Vital Signs: Last Vital Signs Pulse 64 12/16/23 09:00 BP 128/72 12/16/23 09:00 BMI result Body Mass Index 30.7 Assessment & Plan Assessment & Plan (1) Hematuria: Code(s): R31.9 - Hematuria, unspecified (2) Intussusception: Code(s): K56.1 - Intussusception Plan: PLAN: 1/ recheck UA and culture 2/ labs incl Mv levels 3/ refer bariatric in [place] for ?bowel pexy 4/ EGD and colonoscopy to r/o other pathology 5/ Levsin trial with zofran and see if helps (3) Abdominal pain: Comment: Diffuse abdominal pain-difficult to assess, Code(s): R10.9 - Unspecified abdominal pain Qualifiers: Abdominal location: right upper quadrant Qualified Code(s): R10.11 - Right upper quadrant pain Plan: PLAN: 1/ recheck UA and culture 2/ labs incl Mv levels 3/ refer bariatric in [place] for ?bowel pexy 4/ EGD and colonoscopy to r/o other pathology 5/ Levsin trial with zofran and see if helps (4) Dysuria: Code(s): R30.0 - Dysuria Plan: PLAN: 1/ recheck UA and culture 2/ labs incl Mv levels 3/ refer bariatric in [place] for ?bowel pexy 4/ EGD and colonoscopy to r/o other pathology 5/ Levsin trial with zofran and see if helps Plan PLAN: 1/ recheck UA and culture 2/ labs incl Mv levels 3/ refer bariatric in [place] for ?bowel pexy 4/ EGD and colonoscopy to r/o other pathology 5/ Levsin trial with zofran and see if helps Orders: Orders US abdomen complete Today R31.9 - Hematuria, unspecified Comprehensive Met. Panel Today K56.1 - Intussusception, K75.81 - Nonalcoholic steatohepatitis (BEEBE), R10.9 - Unspecified abdominal pain, R30.0 - Dysuria, R31.9 - Hematuria, unspecified Vitamin B12 and Folate Today K56.1 - Intussusception, R10.9 - Unspecified abdominal pain, R30.0 - Dysuria, R31.9 - Hematuria, unspecified Vitamin B3 (Niacin) Today K56.1 - Intussusception, R10.9 - Unspecified abdominal pain, R30.0 - Dysuria, R31.9 - Hematuria, unspecified Vitamin B1 Today K56.1 - Intussusception, R10.9 - Unspecified abdominal pain, R30.0 - Dysuria, R31.9 - Hematuria, unspecified Vitamin B6 Today K56.1 - Intussusception, R10.9 - Unspecified abdominal pain, R30.0 - Dysuria, R31.9 - Hematuria, unspecified Vitamin D 25-OH Total Today K56.1 - Intussusception, R10.9 - Unspecified abdominal pain, R30.0 - Dysuria, R31.9 - Hematuria, unspecified Vitamin E Today K56.1 - Intussusception, R10.9 - Unspecified abdominal pain, R30.0 - Dysuria, R31.9 - Hematuria, unspecified Vitamin K1 Today K56.1 - Intussusception, R10.9 - Unspecified abdominal pain, R30.0 - Dysuria, R31.9 - Hematuria, unspecified UA CC w/rflx Micro + Cult Today K56.1 - Intussusception, R10.9 - Unspecified abdominal pain, R30.0 - Dysuria, R31.9 - Hematuria, unspecified Complete Blood Count Auto Diff Today K56.1 - Intussusception, R10.9 - Unspecified abdominal pain, R30.0 - Dysuria, R31.9 - Hematuria, unspecified Vitamin A Today K56.1 - Intussusception, R10.9 - Unspecified abdominal pain, R30.0 - Dysuria, R31.9 - Hematuria, unspecified Vitamin B5 (Pantothenic Acid) Today K56.1 - Intussusception, R10.9 - Unspecified abdominal pain, R30.0 - Dysuria, R31.9 - Hematuria, unspecified Vitamin C Today K56.1 - Intussusception, R10.9 - Unspecified abdominal pain, R30.0 - Dysuria, R31.9 - Hematuria, unspecified Zinc Today K56.1 - Intussusception, R10.9 - Unspecified abdominal pain, R30.0 - Dysuria, R31.9 - Hematuria, unspecified Ferritin Today K56.1 - Intussusception, R10.9 - Unspecified abdominal pain, R30.0 - Dysuria, R31.9 - Hematuria, unspecified Referrals Bariatric Surgery Referral K56.1 - Intussusception, R10.9 - Unspecified abdominal pain, R30.0 - Dysuria, R31.9 - Hematuria, unspecified Medications: New ondansetron 4 mg PO Q8H PRN 60 tabs 1RF nausea and vomiting sodium,potassium,mag sulfates 17.5-3.13-1.6 gram (Suprep Bowel Prep Kit) DILUTE; drink 1/2 at 6-8 pm and half at 11 PM- 1AM 354 mL 0RF hyoscyamine sulfate 0.125 mg PO BID-QID PRN 60 tabs 0RF dyspepsia Coding Level of Care Code Est Pt Level 4 (97493) Diagnoses Hematuria R31.9 Intussusception K56.1 Right upper quadrant abdominal pain R10.11 Abdominal location: right upper quadrant Dysuria R30.0
[2023-12-16 09:00] VITALS: BP 128/72; PULSE 64; BMI 30.7
== END 2023-12-16 09:42 | disposition home or self-care (01) ==
PROVIDERS: PCP Internal Medicine; Visit Provider Internal Medicine Gastroenterology
DX: R31.9 Hematuria, unspecified (principal); K56.1 Intussusception; R10.11 Right upper quadrant pain; R30.0 Dysuria
CPT/HCPCS: 99214

== ENCOUNTER 2023-12-24 08:16 | Day surgery (SDC) | payer OTHER, SELFPAY ==
--- NOTE | 2023-12-23 10:14 | P.CONAN_ITS ---
Documented by User: Candelaria Ramos NP 12/23/23 10:16 HPI - Anesthesia Eval Consult details Narrative: 63yo F for Cystoscopy Hydrodistention of Bladder s/p axilla mass excision 08/2023 with GA-LMA 3 PMFSH Active Problems Active Problems: All Active Problems (Updated 12/16/23 @ 09:28 by Sabina Chatman MD) Hematuria (Acute) Intussusception (Acute) Acute pyelonephritis (Acute) Urge urinary incontinence (Acute) Mild asthma (Acute) Dyspnea (Acute) Chronic pain syndrome (Acute) Left hip pain (Acute) Ascending aorta dilatation (Acute) Lumbar spondylosis (Acute) Discogenic low back pain (Acute) Lumbar radiculitis (Acute) Abdominal pain (Acute) Dysuria (Acute) Physical exam (Acute) Pelvic pain (Acute) Cervical polyp (Acute) Microscopic hematuria (Acute) Gross hematuria (Acute) Breast mass, right (Acute) Pure hypercholesterolemia (Acute) PVCs (premature ventricular contractions) (Acute) Generalized abdominal pain (Acute) Interstitial cystitis (Acute) Bladder pain (Acute) B12 deficiency (Acute) Lumbar pain (Acute) Screen for colon cancer (Acute) Hepatomegaly (Acute) HTN (hypertension) (Acute) Needle exposure (Acute) Microscopic hematuria (Acute) Murmur (Acute) Frequent UTI (Acute) Iron deficiency anemia (Acute) Dysuria (Acute) Labile blood glucose (Acute) Anemia (Chronic) Dyslipidemia (Acute) Pernicious anemia (Acute) Pre-op examination (Acute) Cervicalgia of pgdrbnir-unkembz-zuzbb region (Acute) Nontoxic multinodular goiter (Acute) Paget's disease (Acute) Vitamin D deficiency (Acute) Osteoporosis (Acute) Past Medical History Medical History Hepatomegaly Needle exposure Microscopic hematuria Murmur Frequent UTI Iron deficiency anemia Dysuria Labile blood glucose Anemia Dyslipidemia Pernicious anemia Pre-op examination Cervicalgia of pnkckyxb-uiabrda-hwjlt region Vitamin D deficiency Osteoporosis 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 Asthma Paget's disease Fibromyalgia Nontoxic multinodular goiter Osteoarthritis HTN (hypertension) Family History Family History Mother Diabetes HTN (hypertension) Father Pancreatic cancer Diabetes HTN (hypertension) Maternal Grandmother Myocardial infarction Cancer Brother Pancreatic cancer Sister Uterine cancer Family history of problems with anesthesia: No Surgical History Surgical History History of excision of mass (08/21/23) History of removal of laparoscopic gastric banding device History of cystoscopy History of lobectomy of thyroid Mass of right parotid gland H/O laparoscopic adjustable gastric banding Hx of lithotripsy History of dilation and curettage History of delivery Hx of tonsillectomy Hx of gastric bypass History of Problems with Anesthesia: No Social History Social History Household Members: Family Housing: House Are you a primary career based intervention coordinator to a significant other at home: No Do you presently have visiting nurse or other home services: No Alcohol intake: never Patient Tobacco Use Status: Former Tobacco user Tobacco use type: Cigarette e-Cigarette/Vaping Use: Never Used Second Hand Smoke Exposure: No Use of substances other than those prescribed or required for medical reasons: No Are you DNR?: No Advance Directives: No Advance Directives Information Provided: Yes service: No Current occupational status: unemployed and disabled Sexual orientation: Straight/Heterosexual Gender identity: Female Cognitive needs: No Hearing needs: No Vision needs: Yes (glasses) Meds Allergies Allergy/AdvReac Type Severity Reaction Status Date / Time phentermine Allergy Intermediate Palpitation Verified 12/24/23 08:28 s Home Medications Medication Instructions Recorded Confirmed Last Taken Type albuterol sulfate 90 mcg/actuation 2 puff inhalation Q6H PRN 08/22/20 12/02/23 Unknown History aerosol inhaler Shortness Of Breath Or Wheezing calcium citrate 500 mg PO BID 08/17/21 12/02/23 11/08/23 History lancets 30 gauge (Pure Comfort #100 ea 08/17/21 12/02/23 Unknown History Safety Lancets) Exam Pertinent Lab Results Pertinent Lab Results: Laboratory Tests 12/16/23 10:47 WBC 7.2 Hgb 10.6 L Hct 33.6 L Plt Count 375 Sodium 140 Potassium 3.8 Chloride 107 Carbon Dioxide 26 BUN 17 H Creatinine 0.68 Narrative Narrative: EKG 10/2023 Vent. Rate : 094 BPM Atrial Rate : 094 BPM P-R Int : 150 ms QRS Dur : 092 ms QT Int : 410 ms P-R-T Axes : 009 -30 019 degrees QTc Int : 512 ms Normal sinus rhythm Left axis deviation Possible Anterior infarct , age undetermined Abnormal ECG When compared with ECG of 12-FEB-2019 09:43, Vent. rate has increased BY 32 BPM Borderline criteria for Anterior infarct are now Present Nonspecific T wave abnormality, worse in Anterolateral leads Assessment and Plan Assessment Anesthesia Assessment: Chart Reviewed Final Anesthetic Review Family History of Problems with Anesthesia: No History of Problems with Anesthesia: No Documented by User: Angela Gilman MD 12/24/23 09:06 [facility] Active Problems Active Problems: All Active Problems (Updated 12/24/23 @ 08:53 by Angela Gilman MD) Hematuria (Acute) Intussusception (Acute) Acute pyelonephritis (Acute) Urge urinary incontinence (Acute) Mild asthma (Acute) Dyspnea (Acute) Chronic pain syndrome (Acute) Left hip pain (Acute) Ascending aorta dilatation (Acute) Lumbar spondylosis (Acute) Discogenic low back pain (Acute) Lumbar radiculitis (Acute) Abdominal pain (Acute) Dysuria (Acute) Physical exam (Acute) Pelvic pain (Acute) Cervical polyp (Acute) Microscopic hematuria (Acute) Gross hematuria (Acute) Breast mass, right (Acute) Pure hypercholesterolemia (Acute) PVCs (premature ventricular contractions) (Acute) Generalized abdominal pain (Acute) Interstitial cystitis (Acute) Bladder pain (Acute) B12 deficiency (Acute) Lumbar pain (Acute) Screen for colon cancer (Acute) Hepatomegaly (Acute) HTN (hypertension) (Acute) Needle exposure (Acute) Microscopic hematuria (Acute) Murmur (Acute) Frequent UTI (Acute) Iron deficiency anemia (Acute) Dysuria (Acute) Labile blood glucose (Acute) Anemia (Chronic) Dyslipidemia (Acute) Pernicious anemia (Acute) Pre-op examination (Acute) Cervicalgia of agzaqubf-aorevxu-nckzg region (Acute) Nontoxic multinodular goiter (Acute) Paget's disease (Acute) Vitamin D deficiency (Acute) Osteoporosis (Acute) JOSSELYN. 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 Asthma Paget's disease Fibromyalgia Nontoxic multinodular goiter Osteoarthritis HTN (hypertension) Family History Family History Mother Diabetes HTN (hypertension) Father Pancreatic cancer Diabetes HTN (hypertension) Maternal Grandmother Myocardial infarction Cancer Brother Pancreatic cancer Sister Uterine cancer Family history of problems with anesthesia: No Surgical History Surgical History History of excision of mass (08/21/23) History of removal of laparoscopic gastric banding device History of cystoscopy History of lobectomy of thyroid Mass of right parotid gland H/O laparoscopic adjustable gastric banding Hx of lithotripsy History of dilation and curettage History of delivery Hx of tonsillectomy Hx of gastric bypass History of Problems with Anesthesia: No Social History Social History Household Members: Family Housing: House Are you a primary career based intervention coordinator to a significant other at home: No Do you presently have visiting nurse or other home services: No Alcohol intake: never Patient Tobacco Use Status: Former Tobacco user Tobacco use type: Cigarette e-Cigarette/Vaping Use: Never Used Second Hand Smoke Exposure: No Use of substances other than those prescribed or required for medical reasons: No Are you DNR?: No Advance Directives: No Advance Directives Information Provided: Yes service: No Current occupational status: unemployed and disabled Sexual orientation: Straight/Heterosexual Gender identity: Female Cognitive needs: No Hearing needs: No Vision needs: Yes (glasses) Meds Allergies Allergy/AdvReac Type Severity Reaction Status Date / Time phentermine Allergy Intermediate Palpitation Verified 12/24/23 08:28 s Home Medications Medication Instructions Recorded Confirmed Last Taken Type albuterol sulfate 90 mcg/actuation 2 puff inhalation Q6H PRN 08/22/20 12/02/23 Unknown History aerosol inhaler Shortness Of Breath Or Wheezing calcium citrate 500 mg PO BID 08/17/21 12/02/23 11/08/23 History lancets 30 gauge (Pure Comfort #100 ea 08/17/21 12/02/23 Unknown History Safety Lancets) Exam Height,Weight and Vital Signs: Height 5 ft Weight 65.317 kg Vital Signs Temp Pulse Resp BP Pulse Ox O2 Del Method 12/24/23 08:38 97.5 F 84 16 126/73 96 Room Air Airway Mallampati Class: III TM Dist: >3cm Neck ROM: Full Loose/Missing/Broken Teeth: Yes (Many missing. Top 4 front crowned. Intact) Heart: RRR Lungs: CTAB Assessment and Plan Assessment Anesthesia Assessment: Anesthesia Plan Discussed Final Anesthetic Review Family History of Problems with Anesthesia: No History of Problems with Anesthesia: No NPO: Yes ASA Class: III Final Preanesthetic Review: No Changes in Pt Med Stat, Meds/Allgs Chart Reviewed, Consent Obtained/Reviewed and Anes Risks/Benef Reviewed Patient Risk: Intermediate Procedure Risk: Low Assessment/Block/Sedation in SS: Assess/Block/Sedation-SS Anesthetic Plan Anesthetic Plan: GA Disposition: Standard PACU
[2023-12-24 08:19] VITALS: BMI 28.1
[2023-12-24 08:38] VITALS: BP 126/73; PULSE 84; RESP 16; TEMP 36.4; O2SAT 96
[2023-12-24] MEDS: Lactated Ringers 1,000 ML 100 ML IVCONT (08:38)
--- NOTE | 2023-12-24 09:26 | MHC.SHP ---
Pre-Procedural Eval Section A - 24 Hr Update-Section A only Date of Service: 12/24/23 The patient is an INPATIENT: No The patient has been examined within 24 hours of the surgical procedure. The History & Physical has been completed within 30 days and I have reviewed it.: Yes Section B - Complete if H&P > 30 days Chief Complaint: Interstitial cystitis (chronic) without hematuria Allergies: Allergies Allergy/AdvReac Type Severity Reaction Status Date / Time phentermine Allergy Intermediate Palpitation Verified 12/24/23 08:28 s Plan Diagnosis/Plan: Unchanged I have reviewed the history and physical and performed a pertinent physical examination on my patient. No changes have occurred unless specified. cysto hydrodistension Time Spent With Patient Time: Total time managing care of this patient today ____ minutes.
--- NOTE | 2023-12-24 10:06 | P.OP_ITS ---
Operative Note Operative Note Date of Service: 12/24/23 Narrative: PREOP DIAGNOSIS: Interstitial cystitis, bladder pain syndrome, recurrent UTI POSTOP DIAGNOSIS: Interstitial cystitis, bladder pain syndrome, recurrent UTI, urethral stenosis PROCEDURE: Cystoscopy Hydrodistension, Urethral Dilation, Bladder instillation Anethesia: General Surgeon: Dr. Saige Henning Details of procedure: The patient was brought into the operating room placed on the OR table in supine position. 2 g of Ancef IV. General anesthesia was administered. The patient was repositioned into lithotomy position, prepped and draped in the usual sterile fashion. Time-out was done per protocol. On attempts to place the 22 fr cystoscope transurethrally there was resistance at the uretheral meatus. 2% lidocaine was inserted transurethrally. The female [place] sounds were used to dilate the urethral meatus starting with the 16 fr and sequentially dilated up to a 24 fr. The 22 fr cystoscope was than passed transurethrally into the bladder. Urine was drained from the bladder measuring 75 mL. Urine was sent for culture. The right and left ureteral orifices were visualized. The entire bladder was visualized. There were no suspicious bladder lesions seen. There were moderate trabeculations noted. The bladder was filled with sterile water at 80 cm of water pressure under gravity. The bladder was distended for 1 minutes. Bladder capacity measured 900 mL. Revisualization of the bladder, no glomerulations, visualized. No Jason ulcerations visualized. The bladder was refilled with sterile water again at 80 cm of water pressure under gravity. The bladder was distended for 4 minutes. The bladder was emptied. The cystoscope was removed. 2% lidocaine urojet was passed transurethrally, Solution of (1% lidocaine plain, 15 mL, 0.5 % Marcaine 15 mL mixed with 30, 000 units of heparin concentration 5000 units per mL total of 6 mL hepaine) instilled transurethrally into the bladder. The patient was brought out of anesthesia and taken to recovery in stable condition. Complications: None Drains: None EBL: 0 mL
[2023-12-24 10:13] VITALS: BP 109/54; PULSE 86; RESP 17; TEMP 36.3; O2SAT 98
[2023-12-24 10:18] VITALS: BP 104/54; PULSE 78; RESP 16; O2SAT 97
[2023-12-24 10:23] VITALS: BP 117/66; PULSE 85; RESP 16; O2SAT 96
[2023-12-24] MEDS: Acetaminophen 325 MG TABLET 650 MG PO (10:25)
[2023-12-24] MEDS: Phenazopyridine HCL 200 MG TABLET PO (10:25)
[2023-12-24 10:28] VITALS: BP 127/70; PULSE 81; RESP 16; O2SAT 96
[2023-12-24 10:43] VITALS: BP 121/63; PULSE 86; TEMP 36.3; O2SAT 97
== END 2023-12-24 12:20 | disposition home or self-care (01) ==
PROVIDERS: PCP Internal Medicine; Visit Provider Urology
PROC: 0T7B7ZZ Dilation of Bladder, Via Natural or Artificial Opening (ICD-10-PCS; CPT 52260; principal; 2023-12-24 10:00)
DX: N30.10 Interstitial cystitis (chronic) without hematuria (principal); N35.92 Unspecified urethral stricture, female; R39.82 Chronic bladder pain; D50.9 Iron deficiency anemia, unspecified; Z87.442 Personal history of urinary calculi; I10 Essential (primary) hypertension; M81.0 Age-related osteoporosis without current pathological fracture; E78.5 Hyperlipidemia, unspecified; M88.9 Osteitis deformans of unspecified bone; E55.9 Vitamin D deficiency, unspecified; J45.909 Unspecified asthma, uncomplicated; Z79.899 Other long term (current) drug therapy; Z98.84 Bariatric surgery status; Z98.890 Other specified postprocedural states; Z88.8 Allergy status to other drugs, medicaments and biological substances; Z87.891 Personal history of nicotine dependence
CPT/HCPCS: 52260; 87086; J0690; J1644; J2250; J2405; J2704; J2795; J3010

== ENCOUNTER → 2023-12-24 08:16 | Outpatient (BNV) | payer OTHER, SELFPAY | PROVIDERS: PCP Internal Medicine; Visit Provider Urology | DX: N30.10 Interstitial cystitis (chronic) without hematuria (principal) | CPT/HCPCS: 52260 ==

== ENCOUNTER 2024-01-03 08:39 | Outpatient (REF) | payer OTHER, SELFPAY ==
--- NOTE | ~2024-01-03 | US_ITS ---
EXAMINATION: US ABDOMEN COMPLETE CLINICAL INFORMATION: Hematuria, unspecified. Abdominal pain. COMPARISON: CT abdomen and pelvis 11/08/2023. Ultrasound abdomen complete 03/28/2023 and 12/07/2022. X-ray KUB 08/14/2022 and 03/21/2022. TECHNIQUE: Real-time imaging of the abdominal viscera. Technically limited study secondary to bowel gas and body habitus. FINDINGS: PANCREAS: Poorly visualized. ABDOMINAL AORTA: Atherosclerosis. INFERIOR VENA CAVA: Visualized portions are normal. LIVER: Hepatomegaly, 20.0 cm. Increased hepatic parenchymal heterogeneity and echogenicity could be associated with hepatocellular disease/hepatic steatosis and substantially limits visualization. Correlation with liver function tests and clinical exam recommended to determine further management. Redemonstration of similar mild prominence of the biliary tree, better characterized on CT scan of 11/08/2023. A 1.8 x 0.4 x 0.7 cm echogenic focus in the right hepatic lobe is characteristic of calcification. GALLBLADDER: Surgically absent. COMMON BILE DUCT: Normal in caliber measuring 0.6 cm in diameter. RIGHT KIDNEY: No hydronephrosis. No renal calculi. Limited visualization. The kidney measures 11.4 cm in maximum dimension. LEFT KIDNEY: No hydronephrosis. No renal calculi. Limited visualization. The kidney measures 10.6 cm in maximum dimension. SPLEEN: Soft tissue mass adjacent to the spleen measures 1.0 x 1.4 x 1.4 cm, possibly representing a splenule. The spleen measures 9.1 cm in maximum dimension. FREE FLUID: None. US/US abdomen complete IMPRESSION: 1. Hepatomegaly, 20.0 cm. Increased hepatic parenchymal heterogeneity and echogenicity could be associated with hepatocellular disease/hepatic steatosis and substantially limits visualization. Correlation with liver function tests and clinical exam recommended to determine further management. 2. Redemonstration of similar mild prominence of the biliary tree, better characterized on CT scan of 11/08/2023. 3. Soft tissue mass adjacent to the spleen measures 1.0 x 1.4 x 1.4 cm, possibly representing a splenule. 4. Atherosclerosis in the abdominal aorta.
== END 2024-01-03 08:40 | disposition home or self-care (01) ==
LOC: HO.US 08:39
PROVIDERS: PCP Internal Medicine; Visit Provider Internal Medicine Gastroenterology
DX: R31.9 Hematuria, unspecified (principal)
CPT/HCPCS: 76700

== ENCOUNTER 2024-01-10 13:36 | Outpatient (AMB) | payer OTHER, SELFPAY ==
--- NOTE | 2024-01-10 13:38 | MHC.OFFWIV ---
Intake Vital Signs 01/10/24 13:40 Height 5 ft Weight 159 lb BMI 31.0 BP 122/72 Blood Pressure Location Lt brachial Position Sitting Pulse 61 Pulse Source Pulse Oximeter Temp 97.7 F Temp Source Temporal Artery Scan Pulse Oximetry (%) 97 Intake Visit Reasons: EP RT Neck pain radiates down side of body Intake Note: pt is here today for neck pain radiates down side of body started 2 weeks ago Patient Tobacco Use Status: Former Tobacco user Allergies phentermine Allergy (Intermediate, Verified 01/10/24 13:39) Palpitations Do you need a note to return to daycare/school/sports/work: No HPI HPI Comments History of Present Illness Details 63 y/o female patient who presents to walk in clinic with c/o right sided neck pain x 2 weeks. Denies injury or trauma to the joint. Denies numbness or tingling. Pain with movement. 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 Asthma Paget's disease Fibromyalgia Nontoxic multinodular goiter Osteoarthritis HTN (hypertension) Surgical History History of excision of mass (08/21/23) History of removal of laparoscopic gastric banding device History of cystoscopy History of lobectomy of thyroid Mass of right parotid gland H/O laparoscopic adjustable gastric banding Hx of lithotripsy History of dilation and curettage History of delivery Hx of tonsillectomy Hx of gastric bypass Family History Mother Diabetes HTN (hypertension) Father Pancreatic cancer Diabetes HTN (hypertension) Maternal Grandmother Myocardial infarction Cancer Brother Pancreatic cancer Sister Uterine cancer Social History Household Members: Family Housing: House Are you a primary certified social workers in health care to a significant other at home: No Do you presently have visiting nurse or other home services: No Alcohol intake: never Patient Tobacco Use Status: Former Tobacco user Tobacco use type: Cigarette e-Cigarette/Vaping Use: Never Used Second Hand Smoke Exposure: No service: No Current occupational status: unemployed and disabled Sexual orientation: Straight/Heterosexual Gender identity: Female Cognitive needs: No Hearing needs: No Vision needs: Yes (glasses) Female Reproductive History Menstrual Age of Menarche: 10 Review of Systems Const All systems reviewed & are unremarkable except as noted in HPI and below Physical Exam Vital Signs: Last Vital Signs Temp 97.7 F 01/10/24 13:40 Pulse 61 01/10/24 13:40 BP 122/72 01/10/24 13:40 Pulse Ox 97 01/10/24 13:40 BMI result Body Mass Index 31.0 Const General: no acute distress Orientation/consciousness: patient oriented x3 Neuro General: patient oriented x3, no focal motor deficits and CN's II-XI intact bilaterally Motor exam (neuro): 5/5 motor strength present throughout Extrem General: Yes normal gait Right upper extremity: normal to inspection, normal capillary refill, no joint enlargement and shoulder/upper arm Details: tenderness and abnormal ROM (Limited ROM due to pain. ); no swelling, no lacerations and no ecchymosis; no cyanosis and no edema Left upper extremity: normal to inspection, full ROM and shoulder/upper arm Details: inspection abnormal and normal ROM; no swelling Assessment & Plan Assessment & Plan (1) Shoulder pain, right: Code(s): M25.511 - Pain in right shoulder Qualifiers: Chronicity: chronic Qualified Code(s): M25.511 - Pain in right shoulder; G89.29 - Other chronic pain Plan: - Xray Shoulder - ICE HOT - rest joint - NSAIDs and Acetaminophen for pain relief - F/U with PCP for referral to Ortho and PT. Orders: Orders XR shoulder RT min 2V Today G89.29 - Other chronic pain, M25.511 - Pain in right shoulder Medications: New methocarbamol 750 mg PO Q8H 20 tabs 0RF G89.29 - Other chronic pain, M25.511 - Pain in right shoulder Changed From acetaminophen 500 mg PO QID 10 days PRN 30 caps 0RF pain G89.29 - Other chronic pain, M25.511 - Pain in right shoulder To acetaminophen 1,000 mg (2 x 500 mg) PO Q8H PRN 30 caps 0RF pain G89.29 - Other chronic pain, M25.511 - Pain in right shoulder Refilled ibuprofen 600 mg PO Q6H PRN 20 tabs 0RF pain G89.29 - Other chronic pain, M25.511 - Pain in right shoulder Coding Level of Care Code Est Pt Level 3 (80537) Diagnoses Chronic right shoulder pain M25.511; G89.29 Chronicity: chronic Time Spent (min) 15
[2024-01-10 13:40] VITALS: BP 122/72; PULSE 61; TEMP 36.5; O2SAT 97; BMI 31.0
== END 2024-01-10 14:45 | disposition home or self-care (01) ==
PROVIDERS: PCP Internal Medicine; Visit Provider Nurse Practitioner Family
DX: M25.511 Pain in right shoulder (principal); G89.29 Other chronic pain
CPT/HCPCS: 99213

== ENCOUNTER 2024-01-10 14:04 | Outpatient (REF) | payer OTHER, SELFPAY ==
--- NOTE | ~2024-01-10 | XR_ITS ---
EXAMINATION: XR SHOULDER, RIGHT CLINICAL INFORMATION: Pain COMPARISON: None available. TECHNIQUE: Three views of the right shoulder. FINDINGS: Bone alignment is normal. No fracture or dislocation. Normal glenohumeral joint. Arthritis at the acromioclavicular joint. Degenerative changes of the greater tuberosity. Soft tissues are normal. XR/XR shoulder RT min 2V IMPRESSION: Mild degenerative changes.
== END 2024-01-10 14:05 | disposition home or self-care (01) ==
LOC: HO.HMGCX 14:04
PROVIDERS: PCP Internal Medicine; Visit Provider Nurse Practitioner Family
DX: M25.511 Pain in right shoulder (principal); G89.29 Other chronic pain
CPT/HCPCS: 73030

== ENCOUNTER 2024-03-11 10:04 | Outpatient (AMB) | payer OTHER, SELFPAY ==
--- NOTE | 2024-03-11 10:12 | A.OFFPC_ITS ---
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 Accompanied by: Self / Same As Patient Allergies phentermine Allergy (Intermediate, Verified 03/11/24 10:37) Palpitations Medication List - Last Reconciled 03/11/24 by Mary Jo Conteh MD acetaminophen 1,000 mg (2 x 500 mg) PO Q8H PRN albuterol sulfate 2.5 mg (3 mL) inhalation RQ4H WHILE AWAKE albuterol sulfate 90 mcg/actuation 2 puffs inhalation Q6H PRN ascorbic acid (vitamin C) 1 g PO DAILY 90 days blood sugar diagnostic (FreeStyle Lite Strips) to test 2 to 3 times a day as directed blood-glucose meter (FreeStyle Lite Meter kit) As directed calcium citrate 500 mg PO BID ceftriaxone 1 g IV Q24H cholecalciferol (vitamin D3) 25 mcg PO DAILY 90 days estradiol (Vagifem) 10 mcg vaginal 2XW folic acid 1 mg PO DAILY 90 days hydroxyzine pamoate 50 mg PO BEDTIME hyoscyamine sulfate 0.125 mg PO BID-QID PRN ibuprofen 600 mg PO Q6H PRN incontinence pad, liner, disp As directed lancets (FreeStyle Lancets) Use 1 lancet once a day lancets (Pure Comfort Safety Lancets) As directed methenamine hippurate 1 g PO DAILY 90 days methocarbamol 750 mg PO Q8H metoprolol succinate ER 25 mg PO DAILY 90 days nebulizers (AeroEclipse II Nebulizer) As directed omeprazole 20 mg PO DAILY 90 days ondansetron 4 mg PO Q8H PRN pravastatin 20 mg PO DAILY 90 days sodium,potassium,mag sulfates 17.5-3.13-1.6 gram (Suprep Bowel Prep Kit) DILUTE; drink 1/2 at 6-8 pm and half at 11 PM- 1AM syringe with needle (CanaryHop Luer Lock Syringe with needle) As directed Tobacco use date assessed: 03/11/24 Fall risk assessment: 1 Fall in past year Last assessed Fall Risk: 03/11/24 Dental Screening Dental Screen Date: 03/11/24 Did you have a dental visit in the last 12 months?: Yes Did you have a dental problem in the last 6 months where you did not have access to dental care?: No Was dental information given to patient?: Patient has dentist HPI HPI Comments History of Present Illness Details This is a 63-year-old female that comes for her physical exam. Last mammogram was September 2023 and was normal. Last Pap smear was 2021. Colonoscopies are up-to-date at [facility]. No chest pain or shortness of breath. Compliant with medications. Will order DEXA scan. 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 Asthma Paget's disease Fibromyalgia Nontoxic multinodular goiter Osteoarthritis HTN (hypertension) Surgical History History of excision of mass (08/21/23) History of removal of laparoscopic gastric banding device History of cystoscopy History of lobectomy of thyroid Mass of right parotid gland H/O laparoscopic adjustable gastric banding Hx of lithotripsy History of dilation and curettage History of delivery Hx of tonsillectomy Hx of gastric bypass Family History (Updated 03/11/24 @ 10:44 by Mary Jo Conteh MD) Mother Diabetes HTN (hypertension) Father Pancreatic cancer Diabetes HTN (hypertension) Maternal Grandmother Myocardial infarction Cancer Brother Pancreatic cancer Sister Uterine cancer Social History Household Members: Family Housing: House Are you a primary patient care assistant to a significant other at home: No Do you presently have visiting nurse or other home services: No Alcohol intake: never Patient Tobacco Use Status: Former Tobacco user Tobacco use type: Cigarette e-Cigarette/Vaping Use: Never Used Second Hand Smoke Exposure: No service: No Current occupational status: unemployed and disabled Sexual orientation: Straight/Heterosexual Gender identity: Female Cognitive needs: No Hearing needs: No Vision needs: Yes (glasses) Female Reproductive History Menstrual Age of Menarche: 10 Questionnaire PHQ-9 Over the last 2 weeks, how often have you been bothered by any of the following problems? 1. Little interest or pleasure in doing things: not at all 2. Feeling down, depressed, or hopeless: not at all 3. Trouble falling or staying asleep, or sleeping too much: not at all 4. Feeling tired or having little energy: not at all 5. Poor appetite or overeating: not at all 6. Feeling bad about yourself - or that you are a failure or have let yourself or your family down: not at all 7. Trouble concentrating on things, such as reading the newspaper or watching television: not at all 8. Moving or speaking so slowly that other people could have noticed. Or the opposite - being so fidgety or restless that you have been moving around a lot more than usual: not at all 9. Thoughts that you would be better off or of hurting yourself in some way: not at all Total score: 0 Depression Screening Interpretation: Negative Depression Screening Done: Yes 45269 - PHQ-9 Billing: Yes Source: Developed by Drs. Maxx Hayden, Raquel Cervantes, Jourdan Ruano and colleagues, with an educational milady from [employer]. Thrive Questionnaire Date Thrive assessed: 03/11/24 I am a: Patient What is your living situation today?: I have a steady place to live Within the past 12 months, did the food you bought not last and you didn't have the money to get more?: Never true Within the past 12 months, did you worry whether your food would run out before you got money to buy more?: Never true Do you have trouble paying for medicines?: No Do you have trouble getting transportation to medical appointments?: No Do you have trouble paying your heating and electricity bill?: No Do you have trouble taking care of your child, family member or friend?: No Do you have trouble with day-to-day activities such as bathing, preparing meals, shopping, managing finances, etc.?: No Are you currently unemployed and looking for a job?: No Are you interested in more education?: No Please select the resources that you would like help with: None Currently or been in a relationship where the following occur: no concerns reported THRIVE Score: 0 AUDIT C Alcohol Use Questionnaire (AUDIT-C) 1. How often do you have a drink containing alcohol?: Never Total Score: 0 Score Reviewed/Action Taken: No AUREA-7 AMB Questionnaire AUREA-7 Date AUREA - 7 assessed: 03/11/24 Feeling nervous, anxious, or on edge: 0 = Not at all Not being able to stop or control worryin = Not at all Worrying too much about different things: 0 = Not at all Trouble relaxin = Not at all Being so restless that it is hard to sit still: 0 = Not at all Becoming easily annoyed or irritable: 0 = Not at all Feeling afraid as if something awful might happen: 0 = Not at all Total AUREA-7 score (0-4 normal; 5-9 mild; 10-14 moderate; 15-21 severe): 0 Source: Developed by Drs. Maxx Hayden, Raquel Cervantes, Jourdan Ruano and colleagues, with an educational milady from [employer]. AUREA-7 Assessment Billing AUREA-7 Assessment Tool: AUREA-7 Assessment 35943 Review of Systems Const All systems reviewed & are unremarkable except as noted in HPI and below Eyes Reports no additional complaints, Denies change in vision and Denies other visual disturbances Card Denies chest pain at rest, Denies chest pain with activity, Denies edema, Denies irregular heart rhythm, Denies claudication, Denies dyspnea, Denies dyspnea on exertion, Denies orthopnea, Denies paroxysmal nocturnal dyspnea and Denies slow heart rate Resp Denies cough, Denies dyspnea and Denies dyspnea on exertion Neuro Denies behavioral changes and Denies confusion Psych Denies behavioral changes and Denies confusion Physical exam (Primary Care) Vital Signs: Last Vital Signs BP 122/76 03/11/24 10:15 BMI result Body Mass Index 31.2 Tobacco/Smoking Status: Tobacco use Status Tobacco use date assessed 03/11/24 03/11/24 10:24 Patient Tobacco Use Status Former Tobacco user 03/11/24 10:13 Tobacco use type Cigarette 03/11/24 10:13 e-Cigarette/Vaping Use Never Used 03/11/24 10:13 PHQ-9: PHQ-9 Score PHQ-9: Total score 0 03/11/24 10:41 Depression Screening Interpretation: Negative Thrive Assessment: Date of Thrive Assessment Date Thrive assessed 03/11/24 03/11/24 10:24 Currently or been in a relationship where the following occur: no concerns reported Const General: No confusion Orientation/consciousness: patient oriented x3 and No confusion HENMT Head: Yes normal to inspection, Yes normocephalic and Yes atraumatic Ears: external ears normal Eyes General: appearance normal, both eyes and all related structures Eyelids: Yes eyelids normal Conjunctivae: conjunctivae normal Neck Neck: Yes normal visual inspection and Yes supple Resp Effort & Inspection: normal respiratory effort Auscultation: clear to auscultation bilaterally Cardio Jugular venous distension: no JVD Rate: regular rate Rhythm: regular rhythm Heart sounds: S1 normal heart sound present and S2 normal heart sound present GI Inspection: Yes normal to inspection Palpation (GI): Soft to palpation and nontender Auscultation: normal bowel sounds Skin General skin exam: no rashes or lesions noted Neuro General: patient oriented x3, no focal motor deficits and No confusion Extrem General: Yes full ROM Psych Appearance: grossly normal Assessment and Plan Assessment & Plan (1) Physical exam: Comment: [place] [facility] [place] about 8 years. To repeat in 10 years from [facility]. Due for eye exam. Last mammo 09/2023 Code(s): Z00.00 - Encounter for general adult medical examination without abnormal findings Plan: Repeat in a year. Orders: Orders Complete Blood Count Auto Diff Today D64.9 - Anemia, unspecified Lipid Panel Today E78.5 - Hyperlipidemia, unspecified Vitamin D 25-OH Total Today E55.9 - Vitamin D deficiency, unspecified Thyroid Stimulating Hormone Today E04.1 - Nontoxic single thyroid nodule XR DEXA axial skeleton Today N95.9 - Unspecified menopausal and perimenopausal disorder IRON PROFILE Today D64.9 - Anemia, unspecified Vitamin B12 and Folate Today E53.8 - Deficiency of other specified B group vitamins Comprehensive [place]. Panel Fast Today Z00.00 - Encounter for general adult medical examination without abnormal findings Coding Level of Care Code Est Pt Prev Care >65y(84469) Diagnoses Physical exam Z00.00 Additional Codes AUREA-7 Assessment Billing - AUREA-7 Assessment Tool: AUREA-7 Assessment 65063 ([id number]) Time Spent (min) 34
[2024-03-11 10:15] VITALS: BP 122/76; BMI 31.2
== END 2024-03-11 11:05 | disposition home or self-care (01) ==
PROVIDERS: PCP Internal Medicine; Visit Provider Internal Medicine
DX: Z00.00 Encounter for general adult medical examination without abnormal findings (principal)
CPT/HCPCS: 99397

== ENCOUNTER 2024-03-16 13:33 | Outpatient (AMB) | payer OTHER, SELFPAY ==
--- NOTE | 2024-03-16 14:48 | AM.OFFWIN_ITS ---
Intake Vital Signs 03/16/24 14:50 Height 5 ft Weight 162 lb 2 oz BMI 31.7 BP 110/72 Blood Pressure Location Lt brachial Position Sitting Pulse 86 Pulse Source Pulse Oximeter Temp 97.1 F Temp Source Temporal Artery Scan Pulse Oximetry (%) 97 Oxygen Delivery Method Room Air Intake Visit Reasons: EP LT eye/LT knee pain Intake Note: Pt presents to the office today for left eye redness and pain for 4 days. She also states she has left knee pain that started 3 weeks ago with no known injury. Patient Tobacco Use Status: Former Tobacco user Allergies phentermine Allergy (Intermediate, Verified 03/16/24 14:51) Palpitations HPI HPI Comments History of Present Illness Details Patient presents to the walk-in today for sick visit Endorses multiple complaints including left eye irritation, left hip pain and left knee pain Left eye irritation for last 4 days, denies injury, denies vision changes. Denies headaches. Endorses clear watery drainage from the eye. Denies pain to the eye. Endorses pruritus and crusting in the morning. Left hip and left knee pain for last 3 weeks. Denies inciting injury. Has been taking Tylenol without improvement. 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 Asthma Paget's disease Fibromyalgia Nontoxic multinodular goiter Osteoarthritis HTN (hypertension) Surgical History History of excision of mass (08/21/23) History of removal of laparoscopic gastric banding device History of cystoscopy History of lobectomy of thyroid Mass of right parotid gland H/O laparoscopic adjustable gastric banding Hx of lithotripsy History of dilation and curettage History of delivery Hx of tonsillectomy Hx of gastric bypass Family History Mother Diabetes HTN (hypertension) Father Pancreatic cancer Diabetes HTN (hypertension) Maternal Grandmother Myocardial infarction Cancer Brother Pancreatic cancer Sister Uterine cancer Social History Household Members: Family Housing: House Are you a primary home care manager to a significant other at home: No Do you presently have visiting nurse or other home services: No Alcohol intake: never Patient Tobacco Use Status: Former Tobacco user Tobacco use type: Cigarette e-Cigarette/Vaping Use: Never Used Second Hand Smoke Exposure: No service: No Current occupational status: unemployed and disabled Sexual orientation: Straight/Heterosexual Gender identity: Female Cognitive needs: No Hearing needs: No Vision needs: Yes (glasses) Female Reproductive History Menstrual Age of Menarche: 10 Review of Systems Const All systems reviewed & are unremarkable except as noted in HPI and below Physical Exam Vital Signs: Last Vital Signs Temp 97.1 F 03/16/24 14:50 Pulse 86 03/16/24 14:50 BP 110/72 03/16/24 14:50 Pulse Ox 97 03/16/24 14:50 Oxygen Delivery Method Room Air 03/16/24 14:50 BMI result Body Mass Index 31.7 General: awake, alert, oriented. Answers questions appropriately. Fully engaged in examination. Skin: warm, dry, intact HEENT: Normocephalic. Hearing intact. left eye: + mucoid discharge, conjunctival injection Cardiac: External chest normal in appearance. Respiratory: No cough, audible wheezing or stridor. Abdomen: without gross distension. MS: No obvious swelling or deformities. Pain with internal/external rotation of the left hip. Limited range of motion left knee. Tenderness lateral joint line. Neurological: Oriented to person, place, time and situation. Thought process intact. Psychiatric: Appropriate mood and affect. Good judgment and insight. Results Reviewed Results Reviewed: X-ray left knee: No fracture or dislocation X-ray left hip: No fracture or dislocation Assessment & Plan Assessment & Plan (1) Left hip pain: Code(s): M25.552 - Pain in left hip (2) Left knee pain: Code(s): M25.562 - Pain in left knee (3) Conjunctivitis: Code(s): H10.9 - Unspecified conjunctivitis Plan +mucoid discharge and conjunctival injection noted to left eye consistent with conjunctivitis. ABX drops, 1 drop to both eyes four times daily. Avoid touching, rubbing the eyes. Do not use same area of facecloth to clean both eyes. Wash hands often. X-ray left knee, x-ray left hip ordered and independently reviewed: No fracture dislocation Referral placed for Orthopedics Continue with Tylenol as needed All questions and concerns were answered during the visit. Patient agrees with the plan. Follow up with pcp or return to walkin for any new or worsening symptoms. Orders: Orders XR hip LT min 2V Today M25.552 - Pain in left hip Referrals Orthopedics Referral M25.552 - Pain in left hip, M25.562 - Pain in left knee Medications: New polymyxin B sulf-trimethoprim 10,000 unit- 1 mg/mL while awake; do not exceed 6 doses in 24 hours 1 drp ophthalmic (eye) QID 7 days 10 mL 0RF Coding Level of Care Code Est Pt Level 4 (02553) Diagnoses Left hip pain M25.552 Left knee pain M25.562 Conjunctivitis H10.9
[2024-03-16 14:50] VITALS: BP 110/72; PULSE 86; TEMP 36.2; O2SAT 97; BMI 31.7
== END 2024-03-16 15:30 | disposition home or self-care (01) ==
PROVIDERS: PCP Internal Medicine; Visit Provider Registered Nurse Emergency
DX: M25.552 Pain in left hip (principal); M25.562 Pain in left knee; H10.9 Unspecified conjunctivitis
CPT/HCPCS: 99214

== ENCOUNTER 2024-03-16 15:29 | Outpatient (REF) | payer OTHER, SELFPAY ==
--- NOTE | ~2024-03-16 | XR_ITS ---
EXAMINATION: XR HIP, LEFT CLINICAL INFORMATION: Left hip pain COMPARISON: None available. TECHNIQUE: Two views of the left hip. FINDINGS: BONES: Bony structures are intact. There is no focal bone destruction or periosteal reaction seen. JOINTS: Alignment of hip joint is normal. SOFT TISSUE: Soft tissue is normal. Surgical clips are seen in the pelvis and left inguinal region. No radiopaque foreign body or abnormal air collection is seen. XR/XR hip LT min 2V IMPRESSION: Normal x-ray of left hip. No fracture or dislocation or signs of avascular necrosis are seen.
--- NOTE | ~2024-03-16 | XR_ITS ---
EXAMINATION: XR KNEE, LEFT CLINICAL INFORMATION: Left knee pain COMPARISON: X-rays on 07/24/2018 TECHNIQUE: Four views of the left knee. FINDINGS: BONES: Bony structures are intact. There is no focal bone destruction or periosteal reaction seen. JOINTS: Alignment of joints is normal. SOFT TISSUE: Soft tissue is normal. No radiopaque foreign body or abnormal air collection is seen. XR/XR knee LT 4V IMPRESSION: 1. Unchanged Normal x-rays of left knee. No fracture or dislocation or signs of osteomyelitis are found.
== END 2024-03-16 15:30 | disposition home or self-care (01) ==
LOC: HO.HMGCX 15:29
PROVIDERS: PCP Internal Medicine; Visit Provider Registered Nurse Emergency
DX: M25.552 Pain in left hip (principal); M25.562 Pain in left knee
CPT/HCPCS: 73502; 73564

== ENCOUNTER 2024-03-30 09:58 | Outpatient (AMB) | payer OTHER, SELFPAY ==
--- NOTE | 2024-03-30 10:23 | A.OFFVIS_ITS ---
Intake Visit Reasons: hydro-distention Intake Note: Patient presents today for post op [place]-Distention: Meds- Estradiol, Hydroxyzine & Methenamine Allergies to Antibiotic- No Known Allergies Blood Thinner- None Patient Symptoms: Kidney Infection Coiled Tubing Supervisor Required: Yes Coiled Tubing Supervisor Language: Aircraft Captain Name: Gabino Ayala, RHEA/BETTINA LEYVA Information Interpreted: non-clinical & clinical Accompanied by: Self / Same As Patient Allergies phentermine Allergy (Intermediate, Verified 03/16/24 14:51) Palpitations HPI Comments Details: 03/30/24--Maura is a 63-year-old female with chronic interstitial cystitis. Status post repeat cystoscopy hydrodistention on 12/24/2023. She states that urinary symptoms are improved. She still does get a flare of bladder pain intermittently. Will continue hydroxyzine. Will resume bladder installations every 2 weeks x3 and then maintenance once a month to once every 6 weeks, cont vaginal estrogen therapy, follow-up with me in 6 months. Review of chart: 12/02/23--Maura is a 62-year-old female who presents today to the office for FU, she was in the ED on 11/27/23 with complaints of abdominal, bladder pain and hematuria. She previously had a CTAP w/contrast done on 11/09/23 - and in regards to urinary tract; right kidney changes suggestive of focal pyelonephritis, negative for nephrolithiasis 07/10/2023? Maura is followed today for bladder pain. She was last seen by me on 03/25/2023 for bladder pain. Discussed weekly bladder installations for 4 weeks, then every 2 weeks and Vagifem suppository twice a week was ordered at that time. She has a history of diabetes and gastric bypass. She had noted improvement with the bladder instillations. She has not had a bladder instillation since 05/17/2023 and is complaining that the bladder pressure pain is back. She states that the hydroxyzine did not help her and seem to cause more burning with urination. 03/25/2023? The patient is Filipino speaking female. Certified Filipino speaking snuff drier was present during the visit. --12/06/22-- seen in the office for recurrent UTIs. Comorbidity diabetes. h/o Gastric bypass prior cardiology for evaluation for tachycardia.? also states she needed to have a breast biopsy done s/p cystoscopy hydrodistension- findings bladder capacity 700 mL, no glomerulations visualized previous pelvic exam, point bladder tenderness--treated with Vistaril 25 mg qhs.? and Bladder instillations weekly for 6 weeks, then maintenance q month The patient is undergoing bladder installations. Complains having pain in the pelvic region, but mentions benefits with weekly installations as compared to monthly. The patient was prescribed with Vistrail 25 mg QD and is not sure is she is taking it.? Denies breast cancer family history in sisters and mother. Imagin05/17/22--CT ABDOMEN AND PELVIS WITH CONTRAST-- kidneys wnl, no renal calculi?? Plan: The patient will call the office to let us know if she is taking Vistrail 25 mg QD pending which Vistrail 50 mg will be ordered. Weekly bladder installations for 4 weeks, then every 2 weeks. Vagifem suppository twice a? week was ordered. [facility] Medical History Ascending aorta dilatation Intussusception Hepatomegaly Needle exposure Microscopic hematuria Murmur Frequent UTI Iron deficiency anemia Dysuria Labile blood glucose Anemia Dyslipidemia Pernicious anemia Pre-op examination Cervicalgia of hwbldfuk-eseaoqm-ddygr region Vitamin D deficiency Osteoporosis 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 Asthma Paget's disease Fibromyalgia Nontoxic multinodular goiter Osteoarthritis HTN (hypertension) Surgical History History of excision of mass (08/21/23) History of removal of laparoscopic gastric banding device History of cystoscopy History of lobectomy of thyroid Mass of right parotid gland H/O laparoscopic adjustable gastric banding Hx of lithotripsy History of dilation and curettage History of delivery Hx of tonsillectomy Hx of gastric bypass Family History Mother Diabetes HTN (hypertension) Father Pancreatic cancer Diabetes HTN (hypertension) Maternal Grandmother Myocardial infarction Cancer Brother Pancreatic cancer Sister Uterine cancer Social History Household Members: Family Housing: House Are you a primary lawn care worker to a significant other at home: No Do you presently have visiting nurse or other home services: No Alcohol intake: never Patient Tobacco Use Status: Former Tobacco user Tobacco use type: Cigarette e-Cigarette/Vaping Use: Never Used Second Hand Smoke Exposure: No service: No Current occupational status: unemployed and disabled Sexual orientation: Straight/Heterosexual Gender identity: Female Cognitive needs: No Hearing needs: No Vision needs: Yes (glasses) Female Reproductive History Menstrual Age of Menarche: 10 Review of Systems Const All systems reviewed & are unremarkable except as noted in HPI and below Reports no additional complaints Eyes Reports no additional complaints ENT Reports no additional complaints Card Reports no additional complaints Resp Reports no additional complaints GI Reports no additional complaints Reports as per HPI Musc Reports no additional complaints Skin/Breast Reports system reviewed and no additional complaints, except as documented Neuro Reports no additional complaints Psych Reports no additional complaints Endo Reports no additional complaints Moses/Lymph Reports no additional complaints Aller/Immun Reports no additional complaints Results AMB Urinalysis, Automated UA Leukoctes 0 Denilson/uL Last Edit by RHEA Gould on 03/30/24 12:01 UA Nitrite Negative Last Edit by RHEA Gould on 03/30/24 12:01 UA Urobilinogen 0.2 mg/dL Last Edit by RHEA Gould on 03/30/24 12:0 1 UA Protein 0 mg/dL Last Edit by RHEA Gould on 03/30/24 12:01 UA pH 6.0 Last Edit by RHEA Gould on 03/30/24 12:01 UA Blood 25 Brady/uL Last Edit by RHEA Gould on 03/30/24 12:01 1+ Gabino Ayala 03/30/24 12:01 UA Specific [place] 1.015 Last Edit by RHEA Gould on 03/30/24 12: 01 UA Ketone Negative Last Edit by RHEA Gould on 03/30/24 12:01 UA Bilirubin 0 mg/dL Last Edit by RHEA Gould on 03/30/24 12:01 UA Glucose 0 mg/dL Last Edit by RHEA Gould on 03/30/24 12:01 Results Reviewed Results Reviewed: Laboratory Last Values Urine pH (Auto) 6.0 03/30/24 12:00 Specific [place] (Auto) 1.015 03/30/24 12:00 Urine Protein (Auto) 0 mg/dL 03/30/24 12:00 Glucose (UA)(Auto) 0 mg/dL 03/30/24 12:00 Urine Ketones (Auto) Negative 03/30/24 12:00 Urine Blood (Auto) 25 Brady/uL 03/30/24 12:00 Urine Nitrite (Auto) Negative 03/30/24 12:00 Urine Bilirubin (Auto) 0 mg/dL 03/30/24 12:00 Urine Urobilinogen (Auto) 0.2 mg/dL 03/30/24 12:00 Leukocyte Esterase (Auto) 0 Denilson/uL 03/30/24 12:00 Assessment & Plan Assessment & Plan (1) Microscopic hematuria: Code(s): R31.29 - Other microscopic hematuria Category: Medical (2) Frequent UTI: Code(s): N39.0 - Urinary tract infection, site not specified Category: Medical (3) Interstitial cystitis: Code(s): N30.10 - Interstitial cystitis (chronic) without hematuria Category: Medical (4) Bladder pain: Code(s): R39.89 - Other symptoms and signs involving the genitourinary system Category: Medical Plan Cont Bladder instillations, vaginal estrogen therapy Hydroxyzine 50 mg qhs, follow-up in 6 months Orders: Orders AMB Urinalysis Automated 03/30/24 Z13.9 - Encounter for screening, unspecified Patient Instructions: The patient had an opportunity to ask questions regarding treatment plan. The patient expressed understanding and agreement with the above treatment plan. The patient is aware they should contact our office by phone for worsening of their current condition or the appearance of new symptoms. Compliance is encouraged with any medications and followup testing that is ordered. It is a privilege to be allowed the opportunity to participate in the urologic care of your patient. If you have any questions or concerns regarding treatment for the above conditions please do not hesitate to contact me. The office telephone contact is [phone]. This note is constructed in part using voice recognition software. While every effort has been made to ensure accuracy caisson worker errors may have been included. Yours sincerely, Saige Henning MD Coding Level of Care Code Est Pt Level 4 (33267) Diagnoses Microscopic hematuria R31.29 Frequent UTI N39.0 Interstitial cystitis N30.10 Bladder pain R39.89
== END 2024-03-30 11:19 | disposition home or self-care (01) ==
PROVIDERS: PCP Internal Medicine; Visit Provider Urology
DX: R31.29 Other microscopic hematuria (principal); N39.0 Urinary tract infection, site not specified; N30.10 Interstitial cystitis (chronic) without hematuria; R39.89 Other symptoms and signs involving the genitourinary system
CPT/HCPCS: 99214

== ENCOUNTER → 2024-03-30 09:58 | Outpatient (BNVA) | payer OTHER, SELFPAY | PROVIDERS: PCP Internal Medicine; Visit Provider Urology | DX: R31.29 Other microscopic hematuria (principal); N39.0 Urinary tract infection, site not specified; N30.10 Interstitial cystitis (chronic) without hematuria; R39.89 Other symptoms and signs involving the genitourinary system | CPT/HCPCS: 81003; 99212 ==

== ENCOUNTER → 2024-04-03 08:04 | Outpatient (REF) | payer OTHER, SELFPAY ==
--- NOTE | 2024-04-03 08:08 | CA_ITS ---
Transthoracic Echocardiogram Patient (Last, First, Middle): Maura Travis M Gender: Female Date of : 1960 Age: 63 Procedure Date: 04/03/2024 Procedure Type: Transthoracic Echocardiogram Location: OP Height: 152.4 cm Weight: 73.48 kg BSA: 1.71 m2 Heart Rate: 48 bpm BP: 114 / 64 mmHg Certified Travel Counselor: SB Referring MD: Bertha Bustamante SOLUTION DESIGNER-C Slice Cutting Machine Operator: Roby Handy MD Symptoms: I77.810 - Thoracic aortic ectasia Study Quality: Adequate ECG Rhythm: Bradycardia Conclusions: - 1. Normal LV ejection fraction of 60 65% with impaired relaxation filling pattern 2. Normal cardiac valvular Doppler 3. Mildly dilated ascending aorta at 4 cm 4. No gross pericardial effusion Findings Left Ventricle Normal left ventricular size, thickness, and systolic function. The visually estimated ejection fraction is between 60-65%. Spectral Doppler is indicative of an impaired relaxation filling pattern. E/E prime ratio is between 8 and 15 consistent with indeterminate filling pressures. Right Ventricle Normal right ventricular cavity size and systolic function. Atria The left atrium is likely dilated. There is no evidence of interatrial shunt. The right atrium is normal in size. Aortic Valve There is mild calcification of the aortic valve. There is no aortic valve stenosis. There is trace (trivial) aortic valve regurgitation. Mitral Valve There is mild anterior and posterior mitral leaflet thickening. There is mild mitral annular calcification. There is trace mitral valve regurgitation. There is no mitral valve stenosis. Pulmonic Valve The pulmonic valve was not well visualized. Tricuspid Valve Likely normal tricuspid valve structure and function. There is trace tricuspid valve regurgitation. The right ventricular systolic pressure is normal. The right ventricular systolic pressure is 21 mmHg. Normal right atrial pressure. There is no evidence of pulmonary hypertension. Great Vessels The pulmonary artery was not well visualized. There is mild dilatation of the ascending aorta measuring 4.00 cm. Venous The inferior vena cava is normal in size and collapses greater than 50% with inspiration. Pericardium/Pleural There is no evidence of pericardial effusion. Prior Study Comparison No significant change compared to prior study dated: 02/14/2023. Measurements 2D Linear Measurements IVSd: 0.63 0.6-0.9/0.6-1.0 cm LVIDd: 5.24 3.9-5.3/4.2-5.9 cm LVIDd Index: 3.06 2.4-3.2/2.2-3.1 cm/m2 LVIDs: 3.94 2.0-3.6 cm LVPWd: 0.59 0.7-1.1 cm LA Diam: 3.80 2.7-3.8/3.0-4.0 cm LAIDs Index: 2.22 1.5-2.3 cm/m2 LV Mass: 129.70 67-162/88-224 g LV Mass Index: 75.85 43-95/49-115 g/m2 LVOT Diam: 2.10 3.0+(-)1.3 cm 2D Systolic Function EF 4C: 64.40 >55% EF 2C: 65.30 >55% EF BiP: 63.90 >55% Mitral Valve MV Pk E: 0.67 MV PK A: 0.84 MV Decel Time: 286.00 E/A: 0.80 E'Lateral: 6.31 E'Medial: 4.68 E/E' Med: 14.30 E/E' Lat: 10.60 PHT: 84.00 MVA PHT: 2.62 Decel Taney: 2.34 Aortic Valve AoV Pk Adam: 1.32 AoV Mn Adam: 0.88 AoV VTI: 0.30 AoV Pk Grad: 7.00 Aov Mn Grad: 4.00 MATTHEW Cont.VTI: 2.41 LVOT LVOT Pk Adam: 0.85 LVOT Mn Adam: 0.61 LVOT VTI: 0.21 LVOT Pk Grad: 3.00 LVOT Mn Grad: 2.00 LVOT Diam: 2.10 LVOT Area: 3.46 Diastolic Function MV Pk E: 0.67 MV Pk A: 0.84 E/A: 0.80 E'Medial: 4.68 E/E' Med: 14.30 E' Laterial: 6.31 E/E' Lat: 10.60 Right Ventricle TAPSE (mm): 15.20 TVS' Adam: 10.70 Tricuspid Valve TR Pk Adam: 2.15 TR Pk Grad: 18.00 RA Press: 3.00 RVSP: 21.00 Great Vessels Aorta Sinus of Valsalva: 3.20 2.0-3.5 cm Ao Asc: 4.00 2.1-3.4 cm Ao Arch: 3.80 Pulmonary Valve PV Pk Adam: 0.66 Peak PV Grad: 2.00 Updated in Other Vendor System with Status of Final Roby Handy MD electronically signed on 04/03/2024 4:42:55 PM with status of Final
== END ==
LOC: HO.CARD 08:04
PROVIDERS: PCP Internal Medicine; Visit Provider Nurse Practitioner Family
DX: I77.810 Thoracic aortic ectasia (principal); I49.3 Ventricular premature depolarization
CPT/HCPCS: 93306

== ENCOUNTER → 2024-04-03 08:08 | Outpatient (BNV) | payer OTHER, SELFPAY | PROVIDERS: PCP Internal Medicine; Visit Provider Internal Medicine Cardiovascular Disease | DX: I34.81 Nonrheumatic mitral (valve) annulus calcification (principal); I35.8 Other nonrheumatic aortic valve disorders; I77.810 Thoracic aortic ectasia | CPT/HCPCS: 93306 ==

== ENCOUNTER 2024-04-09 10:19 | Outpatient (AMB) | payer OTHER, SELFPAY ==
--- OUTSIDE RECORDS SUMMARY | 2024-04-09 10:22 | XMS_ITS | Continuity of Care Document ---
Author Organization [facility] Address [address] [place] [address]- Care Team Providers Care Lawn And Garden Technician Name Role Phone Ernesto Conteh MD, Zulma Primary Care Physician Encounter [facility] Date(s): 11/20/23 - 03/19/24 [facility] [address] [place] [address]- Attending Physician: Peter SOLANO, Miguel Allergies, Adverse Reactions, Alerts No Known Allergies Immunizations Given and Recorded Vaccine Date Status Refusal Reason Diphth-Tetanus Toxoids Adsorbed(oldterm) 12/31/08 Given Medications Albuterol 0 Refills, Maintenance, 04/08/15 9:32:38 Start Date: 04/08/15 Status: Ordered calcium and vitamin D combination 315 mg-200 iu oral tablet 1 tablet, By Mouth, 3 times a day, # 270 tablet, 3 Refills, Maintenance, 03/28/22 11:29:00 EDT, Tablet, [facility], Partial fill upon patient request if the prescription is for a schedule II opioid drug., 1 tablet By Mouth 3 times a day,... Start Date: 03/28/22 Stop Date: 03/23/23 Status: Ordered calcium and vitamin D combination 500 mg-200 iu oral tablet 1 tablet, By Mouth, Daily, 0 Refills, Maintenance, 10/04/20 14:51:00 EST, Partial fill upon patientrequest Start Date: 10/04/20 Status: Ordered cholecalciferol 2000 intl units oral capsule 1 capsule = 50 mcg, By Mouth, Daily, 0 Refills, Maintenance, 09/07/21 13:23:00 EDT, Capsule, Partial fill upon patient request if the prescription is for a schedule II opioid drug. Start Date: 09/07/21 Status: Ordered Compression Stockings See Instructions, # 5 pair, Refills 2, Tot. Refills 2, Maintenance, surgical, calf length 20-30 mm Hg, 07/10/19 11:16:14 EDT, Compound Start Date: 07/10/19 Status: Ordered folic acid 1 mg oral tablet 1 mg, 1, tablet, By Mouth, Daily, Refills 0, Maintenance, 01/22/17 13:44:35 Start Date: 01/22/17 Status: Ordered Freestyle Lancets Maintenance, 04/08/15 9:32:59, Compound Start Date: 04/08/15 Status: Ordered Freestyle Lite Monitor Maintenance, 04/08/15 9:33:16, Compound Start Date: 04/08/15 Status: Ordered Freestyle Lite Test Strips Maintenance, 04/08/15 9:33:13, Compound Start Date: 04/08/15 Status: Ordered metoprolol 25 mg oral tablet 25 mg, 1, tablet, By Mouth, Daily, Refills 0, Maintenance, 01/21/20 11:20:00 EST Start Date: 01/21/20 Status: Ordered omeprazole 20 mg oral delayed release tablet 1 tablet = 20 mg, By Mouth, Daily, 0 Refills, Maintenance, 10/04/20 14:50:00 EST, Partial fill uponpatient request Start Date: 10/04/20 Status: Ordered pravastatin 20 mg oral tablet 20 mg, 1, tablet, By Mouth, Daily, Refills 0, Maintenance, 10/04/20 14:50:00 EST, Partial fill uponpatient request Start Date: 10/04/20 Status: Ordered Problem List Condition Confirmation Course Effective Dates Status H ealth Status Informant Asthma Confirmed Active Deficiency of vitamin B12 Confirmed Active Fibromyalgia Confirmed Active History of herpes labialis Confirmed Active Hyperlipidemia Confirmed Active Chronic hypertension Confirmed Stable Active Borderline diabetes Confirmed Active Obese class I Confirmed Active Paget's bone disease Confirmed Active PMB (postmenopausal bleeding) Confirmed Active Vitamin D deficiency Confirmed Active Social History Social History Type Response Smoking Status Never smoker entered on: 04/29/15 Sex Patient Care team information Care Team Personnel Name: Felicia Taylor RN Position: CECELIA Onco RN Member Role: Primary Care Nurse Name: Mary Jo Ascencio MD Position: Reference Physician Member Role: PCP Address: Address: [address] [place] [address]- Care Team Related Persons Name: MEERA TAVARES Address: home [address] [place] [address] Name: KENNETH SANTILLAN Address: [place] [address]
--- OUTSIDE RECORDS SUMMARY | 2024-04-09 10:22 | XMS_ITS | Continuity of Care Document ---
Author Organization [facility] Address [address] [place] [address]- Care Team Providers Care Dispensary Technician Name Role Phone Ernesto Conteh MD, Mary Jo Vigil Primary Care Physician Encounter [facility] Date(s): 06/27/23 - 07/27/23 [facility] [address] [place] [address]- Allergies, Adverse Reactions, Alerts No Known Allergies Immunizations Given and Recorded Vaccine Date Status Refusal Reason Diphth-Tetanus Toxoids Adsorbed(oldterm) 12/31/08 Given Medications Albuterol 0 Refills, Maintenance, 04/08/15 9:32:38 Start Date: 04/08/15 Status: Ordered calcium and vitamin D combination 315 mg-200 iu oral tablet 1 tablet, By Mouth, 3 times a day, # 270 tablet, 3 Refills, Maintenance, 03/28/22 11:29:00 EDT, Tablet, [facility], Partial fill upon patient [...] Confirmed Stable Active Borderline diabetes Confirmed Active Paget's bone disease Confirmed Active PMB (postmenopausal bleeding) Confirmed Active Vitamin D deficiency Confirmed Active Social History Social History Type Response Smoking Status Never smoker entered on: 04/29/15 Sex Patient Care team information Care Team Personnel Name: Felicia Taylor RN Position: Yoel Onco RN Member Role: Primary Care Nurse Name: Ernesto Conteh MD , Mary Jo Vigil Position: Reference Physician Member Role: PCP Address: Address: [address] [place] [address] [address] Care Team Related Persons Name: MEERA TAVARES Address: home [address] [place] [address] Name: KENNETH SANTILLAN Address: [place] [address]
--- OUTSIDE RECORDS SUMMARY | 2024-04-09 10:22 | XMS_ITS | Continuity of Care Document ---
Author Organization [facility] Address [address] [place] [address]- Care Team Providers Care Relocation Counselor Name Role Phone Ernesto Conteh MD, Mary Jo Vigil Primary Care Physician [phone] Encounter [facility] Date(s): 06/24/23 - 07/24/23 [facility] [address] [place] [address]- Allergies, Adverse Reactions, Alerts No Known Allergies Immunizations Given and Recorded Vaccine Date Status Refusal Reason Diphth-Tetanus Toxoids Adsorbed(oldterm) 12/31/08 Given Medications Albuterol 0 Refills, Maintenance, 04/08/15 9:32:38 Start Date: 04/08/15 Status: Ordered calcium and vitamin D combination 315 mg-200 iu oral tablet 1 tablet, By Mouth, 3 times a day, # 270 tablet, 3 Refills, Maintenance, 03/28/22 11:29:00 EDT, Tablet, [facility], Partial fill upon patient [...] Reference Physician Member Role: PCP Address: Address: [address] [place] [address] [address] Care Team Related Persons Name: MEERA TAVARES Address: home [address] [place] [address] Name: KENNETH SANTILLAN Address: [place] [address]
--- OUTSIDE RECORDS SUMMARY | 2024-04-09 10:22 | XMS_ITS | Continuity of Care Document ---
Author Organization [facility] Address [address] [place] [address]- Care Team Providers Care Fence Installer Helper Name Role Phone Ernesto Conteh MD, Mary Jo Vigil Primary Care Physician [phone] Encounter [facility] Date(s): 06/27/23 - 07/27/[address] [address] Attending Physician: Gale Silva Admitting Physician: AdmtrGale Referring Physician: AdmtrGale Allergies, Adverse Reactions, Alerts No Known Allergies Immunizations Given and Recorded Vaccine Date Status Refusal Reason Diphth-Tetanus Toxoids Adsorbed(oldterm) 12/31/08 Given Medications Albuterol 0 Refills, Maintenance, 04/08/15 9:32:38 Start Date: 04/08/15 Status: Ordered calcium and vitamin D combination 315 mg-200 iu oral tablet 1 tablet, By Mouth, 3 times a day, # 270 tablet, 3 Refills, Maintenance, 03/28/22 11:29:00 EDT, Tablet, [facility], Partial fill upon patient [...] Team Personnel Name: Felicia Taylor RN Position: LILIANS Onco RN Member Role: Primary Care Nurse Name: Mary Jo Ascencio MD Position: Reference Physician Member Role: PCP Address: Address: [address] [place] [address]- Care Team Related Persons Name: MEERA TAVARES Address: home [address] [place] [address] Name: KENNETH SANTILLAN Address: [place] [address]
--- OUTSIDE RECORDS SUMMARY | 2024-04-09 10:22 | XMS_ITS | Continuity of Care Document ---
Author Organization [facility] [place] [address] [place] [address]- Care Team Providers Care Packing Line Worker Name Role Phone Ernesto Conteh MD, Mary Jo Vigil Primary Care Physician Encounter 08/08/23 - 10/20/23 [facility] [address], [address] [place] [address]- Attending Physician: Miguel Green MD Admitting Physician: Miguel Green MD Referring Physician: Miguel Green MD Allergies, Adverse Reactions, Alerts No Known Allergies Immunizations Given and Recorded Vaccine Date Status Refusal Reason Diphth-Tetanus Toxoids Adsorbed(oldterm) 12/31/08 Given Medications Albuterol 0 Refills, Maintenance, 04/08/15 9:32:38 Start Date: 04/08/15 Status: Ordered calcium and vitamin D combination 315 mg-200 iu oral tablet 1 tablet, By Mouth, 3 times a day, # 270 tablet, 3 Refills, Maintenance, 03/28/22 11:29:00 EDT, Tablet, [facility], Partial fill upon patient [...] Team Personnel Name: Felicia Taylor RN Position: S Onco RN Member Role: Primary Care Nurse Name: Palermo Wero MD , Zulma Position: Reference Physician Member Role: PCP Address: Address: [address] [place] [address]- Care Team Related Persons Name: MEERA TAVARES Address: home [address] [place] [address] Name: KENNETH SANTILLAN Address: [place] [address]
--- OUTSIDE RECORDS SUMMARY | 2024-04-09 10:22 | XMS_ITS | Continuity of Care Document ---
Author Organization [facility] Address [address] [place] [address]- Care Team Providers Care Air Conditioning Mechanic Name Role Phone Ernesto Conteh MD, Mary Jo Vigil Primary Care Physician [id number] Date(s): 08/28/23 - 09/27/[address] [address] Attending Physician: Gale Silva Admitting Physician: Gale Silva Referring Physician: AdmtrGale Allergies, Adverse Reactions, Alerts [...] 3 Refills, Maintenance, 03/28/22 11:29:00 EDT, Tablet, [facility], Partial fill upon patient request [...] Physician Member Role: PCP Address: Address: [address] [place] [address]- Care Team Related Persons Name: MEERA TAVARES Address: home [address] [place] [address] Name: KENNETH SANTILLAN Address: [place] [address]
--- OUTSIDE RECORDS SUMMARY | 2024-04-09 10:22 | XMS_ITS | Continuity of Care Document ---
Author Organization [facility] Address [address] [place] [address]- Care Team Providers Care Financial Report Service Sales Agent Name Role Phone Ernesto Conteh MD, Mary Jo Vigil Primary Care Physician [phone] Encounter [facility] Date(s): 01/21/24 - 02/20/24 [facility] [address] [place] [address]- Allergies, Adverse Reactions, Alerts No Known Allergies Immunizations Given and Recorded Vaccine Date Status Refusal Reason Diphth-Tetanus Toxoids Adsorbed(oldterm) 12/31/08 Given Medications Albuterol 0 Refills, Maintenance, 04/08/15 9:32:38 Start Date: 04/08/15 Status: Ordered calcium and vitamin D combination 315 mg-200 iu oral tablet 1 tablet, By Mouth, 3 times a day, # 270 tablet, 3 Refills, Maintenance, 03/28/22 11:29:00 EDT, Tablet, [facility], Partial fill upon patient [...] Physician Member Role: PCP Address: Address: [address] [place], [place] [address] Care Team Related Persons Name: MEERA TAVARES Address: home [address] [place] [address] Name: KENNETH SANTILLAN Address: [place] [address]
--- OUTSIDE RECORDS SUMMARY | 2024-04-09 10:23 | XMS_ITS | Patient Health Record ---
Author Organization [facility] Address [address] [place], [place] [id number] Care Team Providers Care Machine I Engraver Name Role Phone [facility], Nursing Unavailable [phone] REASON FOR REFERRAL No Information SOCIAL HISTORY Sex Assigned At : Social History Observation Description Sex Assigned At Unknown PLAN OF TREATMENT No Information Insurance Providers Payer Name Payer Address Payer Phone Subscriber Number Group Number Insured Name Patient Relationship to Insured Coverage Start Date Coverage End Date [facility] [place] [address] [address] [place] [address] [id number] JEWELS ESCOBEDO Self - patient is the insured
--- NOTE | 2024-04-09 10:36 | A.OFFVIS_ITS ---
Vital Signs 04/09/24 10:37 Height 5 ft Weight 160 lb BMI 31.2 BP 110/68 Blood Pressure Location Lt brachial Position Sitting Pulse 66 Intake Visit Reasons: 6 mth fu Intake Note: 6 month follow-up feeling good Apprentice Instrument Technician Required: Yes Apprentice Instrument Technician Name: Suresh garvey Allergies phentermine Allergy (Intermediate, Verified 03/16/24 14:51) Palpitations Medication List - Last Reconciled 04/09/24 by Roby Handy MD acetaminophen 1,000 mg (2 x 500 mg) PO Q8H PRN albuterol sulfate 2.5 mg (3 mL) inhalation RQ4H WHILE AWAKE albuterol sulfate 90 mcg/actuation 2 puffs inhalation Q6H PRN ascorbic acid (vitamin C) 1 g PO DAILY 90 days blood sugar diagnostic (FreeStyle Lite Strips) to test 2 to 3 times a day as directed blood-glucose meter (FreeStyle Lite Meter kit) As directed calcium citrate 500 mg PO BID cholecalciferol (vitamin D3) 25 mcg PO DAILY 90 days estradiol (Vagifem) 10 mcg vaginal 2XW folic acid 1 mg PO DAILY 90 days hydroxyzine pamoate 50 mg PO BEDTIME hyoscyamine sulfate 0.125 mg PO BID-QID PRN ibuprofen 600 mg PO Q6H PRN incontinence pad, liner, disp As directed lancets (FreeStyle Lancets) Use 1 lancet once a day lancets (Pure Comfort Safety Lancets) As directed methenamine hippurate 1 g PO DAILY 90 days methocarbamol 750 mg PO Q8H metoprolol succinate ER 25 mg PO DAILY 90 days nebulizers (AeroEclipse II Nebulizer) As directed omeprazole 20 mg PO DAILY 90 days ondansetron 4 mg PO Q8H PRN polymyxin B sulf-trimethoprim 10,000 unit- 1 mg/mL 1 drp ophthalmic (eye) QID 7 days pravastatin 20 mg PO DAILY 90 days sodium,potassium,mag sulfates 17.5-3.13-1.6 gram (Suprep Bowel Prep Kit) DILUTE; drink 1/2 at 6-8 pm and half at 11 PM- 1AM sodium,potassium,mag sulfates 17.5-3.13-1.6 gram (Suprep Bowel Prep Kit) DILUTE each bottle with 16oz of water; drink first bottle 5pm evening before procedure AND second bottle at 11pm; follow each bottle with at least 32 oz.of water within 1 hour after each bottle syringe with needle (Whim Luer Lock Syringe with needle) As directed HPI Comments Details: Maura comes for follow-up. History was obtained with help of content engineer. Patient has been doing well from cardiac perspective. Denies any exertional chest pain or shortness of breath. Denies any symptoms of palpitation. Recent echocardiogram shows stable ascending aortic aneurysm with normal LV systolic function with normal valvular function. Has been doing a lot of dietary modification that helps with her overall general feeling. She says a blood pressures been well controlled. 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 Asthma Paget's disease Fibromyalgia Nontoxic multinodular goiter Osteoarthritis HTN (hypertension) Surgical History History of excision of mass (08/21/23) History of removal of laparoscopic gastric banding device History of cystoscopy History of lobectomy of thyroid Mass of right parotid gland H/O laparoscopic adjustable gastric banding Hx of lithotripsy History of dilation and curettage History of delivery Hx of tonsillectomy Hx of gastric bypass Family History Mother Diabetes HTN (hypertension) Father Pancreatic cancer Diabetes HTN (hypertension) Maternal Grandmother Myocardial infarction Cancer Brother Pancreatic cancer Sister Uterine cancer Social History Household Members: Family Housing: House Are you a primary nonfarm animal caretaker to a significant other at home: No Do you presently have visiting nurse or other home services: No Alcohol intake: never Patient Tobacco Use Status: Former Tobacco user Tobacco use type: Cigarette e-Cigarette/Vaping Use: Never Used Second Hand Smoke Exposure: No service: No Current occupational status: unemployed and disabled Sexual orientation: Straight/Heterosexual Gender identity: Female Cognitive needs: No Hearing needs: No Vision needs: Yes (glasses) Female Reproductive History Menstrual Age of Menarche: 10 Review of Systems Const Denies chills, Denies fatigue, Denies fever(s), Denies frequent falls, Denies weakness, Denies weight gain and Denies weight loss ENT Denies dizziness Card Denies chest pain, Denies leg edema, Denies lightheadedness, Denies palpitations, Denies dyspnea, Denies dyspnea on exertion, Denies orthopnea and Denies other (loss of consciousness) Resp Denies cough, Denies dyspnea and Denies dyspnea on exertion GI Denies hematochezia and Denies change in stool character Musc Denies abnormal gait, Denies muscle weakness, Denies numbness, Denies radiating pain into limb and Denies tingling Neuro Denies abnormal gait, Denies dizziness, Denies frequent falls, Denies numbness, Denies tingling and Denies weakness Endo Denies fatigue and Denies palpitations Physical Exam Vital Signs: Last Vital Signs Pulse 66 04/09/24 10:37 BP 110/68 04/09/24 10:37 BMI result Body Mass Index 31.2 Const General: cooperative, healthy appearing, comfortable and no acute distress Orientation/consciousness: patient oriented x3 Neck Neck: Yes normal visual inspection Resp Effort & Inspection: normal respiratory effort Auscultation: clear to auscultation bilaterally, no crackles, no rales, no rhonchi and no wheezes Cardio Jugular venous distension: no JVD Rate: regular rate Rhythm: regular rhythm Heart sounds: S1 normal heart sound present, S2 normal heart sound present, no murmurs and no rubs Neuro General: patient oriented x3 Extrem General: Yes normal to inspection Psych Appearance: grossly normal Mental Status: mental status grossly normal Speech and movement: Normal speech and movement present Assessment & Plan Assessment & Plan (1) Enlarged thoracic aorta: Code(s): I77.89 - Other specified disorders of arteries and arterioles Category: Medical Plan: Mildly enlarged thoracic aorta which has remained stable. Continue to monitor by echocardiogram on annual basis. Advised to control blood pressure aggressively. Blood pressure is currently well optimized. Advised to avoid sudden strenuous isometric exercise. No surgical intervention required. Follow-up echocardiogram in 1 year's time. (2) PVCs (premature ventricular contractions): Code(s): I49.3 - Ventricular premature depolarization Category: Medical Plan: Prior symptomatic PVCs which are currently controlled on metoprolol therapy. She is very happy with it. We discussed about continue metoprolol therapy. Avoidance of stimulants was discussed. Benign nature of isolated PVCs and setting of normal LV systolic function was discussed. Will follow up in the clinic in 1 year's time, sooner p.r.n.. Thank you for allowing me to partake in her care Orders: Orders CA echo transthoracic complete 1 Year I77.89 - Other specified disorders of arteries and arterioles Coding Level of Care Code Est Pt Level 4 (18924) Diagnoses Enlarged thoracic aorta I77.89 PVCs (premature ventricular contractions) I49.3
[2024-04-09 10:37] VITALS: BP 110/68; PULSE 66; BMI 31.2
== END 2024-04-09 10:55 | disposition home or self-care (01) ==
LOC: HO.HCS 10:19
PROVIDERS: PCP Internal Medicine; Visit Provider Internal Medicine Cardiovascular Disease
DX: I77.89 Other specified disorders of arteries and arterioles (principal); I49.3 Ventricular premature depolarization
CPT/HCPCS: 99214

== ENCOUNTER → 2024-04-09 10:19 | Outpatient (BNVA) | payer OTHER, SELFPAY | PROVIDERS: PCP Internal Medicine; Visit Provider Internal Medicine Cardiovascular Disease | DX: I77.89 Other specified disorders of arteries and arterioles (principal); I49.3 Ventricular premature depolarization | CPT/HCPCS: 99212 ==

== ENCOUNTER 2024-04-10 08:40 | Day surgery (SDC) | payer OTHER, SELFPAY ==
--- NOTE | 2024-04-08 14:36 | HO.ANESPROP2 ---
HPI - Anesthesia Eval Consult details Narrative: 63yo F for Upper Endoscopy and Colonoscopy [place]ine [place] [facility] [place]. 03/2024 echo stable (AAA @ 4.0cm, no change from 2022) [facility] Active Problems Active Problems: All Active Problems Conjunctivitis (Acute) Left knee pain (Acute) Thyroid nodule (Acute) Hematuria (Acute) Acute pyelonephritis (Acute) Urge urinary incontinence (Acute) Mild asthma (Acute) Dyspnea (Acute) Chronic pain syndrome (Acute) Left hip pain (Acute) Lumbar spondylosis (Acute) Discogenic low back pain (Acute) Lumbar radiculitis (Acute) Abdominal pain (Acute) Dysuria (Acute) Physical exam (Acute) Pelvic pain (Acute) Cervical polyp (Acute) Microscopic hematuria (Acute) Gross hematuria (Acute) Breast mass, right (Acute) Pure hypercholesterolemia (Acute) PVCs (premature ventricular contractions) (Acute) Generalized abdominal pain (Acute) Interstitial cystitis (Acute) Bladder pain (Acute) B12 deficiency (Acute) Lumbar pain (Acute) Screen for colon cancer (Acute) Hepatomegaly (Acute) HTN (hypertension) (Acute) Needle exposure (Acute) Microscopic hematuria (Acute) Murmur (Acute) Frequent UTI (Acute) Iron deficiency anemia (Acute) Dysuria (Acute) Labile blood glucose (Acute) Anemia (Chronic) Dyslipidemia (Acute) Pernicious anemia (Acute) Pre-op examination (Acute) Cervicalgia of accpkhfe-entdvuq-anapw region (Acute) Nontoxic multinodular goiter (Acute) Paget's disease (Acute) Vitamin D deficiency (Acute) Osteoporosis (Acute) Past Medical History Medical History Enlarged thoracic aorta Intussusception Hepatomegaly Needle exposure Microscopic hematuria Murmur Frequent UTI Iron deficiency anemia Dysuria Labile blood glucose Anemia Dyslipidemia Pernicious anemia Pre-op examination Cervicalgia of djhmcmzt-rfpouco-epocf region Vitamin D deficiency Osteoporosis 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 Asthma Paget's disease Fibromyalgia Nontoxic multinodular goiter Osteoarthritis HTN (hypertension) Family History Family History Mother Diabetes HTN (hypertension) Father Pancreatic cancer Diabetes HTN (hypertension) Maternal Grandmother Myocardial infarction Cancer Brother Pancreatic cancer Sister Uterine cancer Family history of problems with anesthesia: No Surgical History Surgical History History of excision of mass (08/21/23) History of removal of laparoscopic gastric banding device History of cystoscopy History of lobectomy of thyroid Mass of right parotid gland H/O laparoscopic adjustable gastric banding Hx of lithotripsy History of dilation and curettage History of delivery Hx of tonsillectomy Hx of gastric bypass History of Problems with Anesthesia: No Social History Social History Household Members: Family Housing: House Are you a primary youth care worker to a significant other at home: No Do you presently have visiting nurse or other home services: No Alcohol intake: never Patient Tobacco Use Status: Former Tobacco user Tobacco use type: Cigarette e-Cigarette/Vaping Use: Never Used Second Hand Smoke Exposure: No service: No Current occupational status: unemployed and disabled Sexual orientation: Straight/Heterosexual Gender identity: Female Cognitive needs: No Hearing needs: No Vision needs: Yes (glasses) Meds Allergies Allergy/AdvReac Type Severity Reaction Status Date / Time phentermine Allergy Intermediate Palpitation Verified 04/10/24 09:18 s Home Medications ?Medication ?Instructions ?Recorded ?Confirmed ?Last Taken ?Type albuterol sulfate 90 mcg/actuation 2 puff inhalation Q6H PRN 08/22/20 04/10/24 Unknown History aerosol inhaler Shortness Of Breath Or Wheezing calcium citrate 500 mg PO BID 08/17/21 04/10/24 11/08/23 History lancets 30 gauge (Pure Comfort #100 ea 08/17/21 04/10/24 Unknown History Safety Lancets) Exam Pertinent Lab Results Pertinent Lab Results: Laboratory Tests 12/16/23 10:47 WBC 7.2 Hgb 10.6 L Hct 33.6 L Plt Count 375 Sodium 140 Potassium 3.8 Chloride 107 Carbon Dioxide 26 BUN 17 H Creatinine 0.68 Narrative Narrative: ECHO 03/2024 Conclusions: - 1. Normal LV ejection fraction of 60 65% with impaired relaxation filling pattern 2. Normal cardiac valvular Doppler 3. Mildly dilated ascending aorta at 4 cm 4. No gross pericardial effusion EKG 10/2023 Vent. Rate : 094 BPM Atrial Rate : 094 BPM P-R Int : 150 ms QRS Dur : 092 ms QT Int : 410 ms P-R-T Axes : 009 -30 019 degrees QTc Int : 512 ms Normal sinus rhythm Left axis deviation Possible Anterior infarct , age undetermined Abnormal ECG When compared with ECG of 12-FEB-2019 09:43, Vent. rate has increased BY 32 BPM Borderline criteria for Anterior infarct are now Present Nonspecific T wave abnormality, worse in Anterolateral leads Assessment and Plan Assessment Anesthesia Assessment: Chart Reviewed Final Anesthetic Review Family History of Problems with Anesthesia: No History of Problems with Anesthesia: No
[2024-04-09 06:44] VITALS: BMI 32.3
--- OUTSIDE RECORDS SUMMARY | 2024-04-10 08:44 | XMS_ITS | Patient Health Record ---
Author Organization [facility] Address [address] [place], [place] [id number] Care Team Providers Care Corrections Sergeant Name Role Phone [facility], Nursing Unavailable [phone] REASON FOR REFERRAL No Information SOCIAL HISTORY Sex Assigned At : Social History Observation Description Sex Assigned At Unknown PLAN OF TREATMENT No Information Insurance Providers Payer Name Payer Address Payer Phone Subscriber Number Group Number Insured Name Patient Relationship to Insured Coverage Start Date Coverage End Date [facility] [place] [address] [address] [place] [id number] JEWELS ESCOBEDO Self - patient is the insured
[2024-04-10 09:21] VITALS: BP 114/57; PULSE 65; RESP 16; TEMP 36.7; O2SAT 98
[2024-04-10] MEDS: Lactated Ringers 1,000 ML 100 ML IVCONT (09:44)
--- NOTE | 2024-04-10 10:03 | MHC.SHP ---
Pre-Procedural Eval Section A - 24 Hr Update-Section A only Date of Service: 04/10/24 Section B - Complete if H&P > 30 days Chief Complaint: anemia and abdominal pain Relevant Family History (Specify if Yes): No Relevant Social History: None Present Medications: see Short Stay Collaborative assessment Medical History: Significant History (Hepatomegaly Needle exposure Microscopic hematuria Murmur Frequent UTI Iron deficiency anemia Dysuria Labile blood glucose Anemia Dyslipidemia Pernicious anemia Pre-op examination Cervicalgia of xfajhhnv-szgkyov-rkkbg region Vitamin D deficiency Osteoporosis Embryonic cyst of cervix/vagina/external ) History of Previous Operations: Relevant previous surgery/procedure and date(s) (History of excision of mass (08/21/23) History of removal of laparoscopic gastric banding device History of cystoscopy History of lobectomy of thyroid Mass of right parotid gland H/O laparoscopic adjustable gastric banding Hx of lithotripsy History of dilation and curettage History of deliv) Allergies: Allergies Allergy/AdvReac Type Severity Reaction Status Date / Time phentermine Allergy Intermediate Palpitation Verified 04/10/24 09:18 s Review of Systems Sugical H&P ROS: Negative: Constitution, Cardiovascular, Respiratory, Neurological, Psychiatric, Hem-Onc, Allergic/Immunologic, Gastrointestinal, Genitourinary, Musculoskeletal, Integumentary, Endocrine and Eyes/Ears/Nose/Throat Exam Surgical H&P Exam: Normal: HEENT, Normal: Heart, Normal: Lungs, Normal: Extremities, Normal: Abdomen, Normal: Skin and Normal: Neurological Plan Diagnosis/Plan: Unchanged I have reviewed the history and physical and performed a pertinent physical examination on my patient. No changes have occurred unless specified. Time Spent With Patient Time: Total time managing care of this patient today ____ minutes.
--- NOTE | 2024-04-10 10:06 | HO.OPN-COLON ---
Colonoscopy Operative Note Operative Note Date of Service: 04/10/24 Narrative: Operative Information Procedure Description: EGD, Colonoscopy Indication: anemia and abdominal pain Anesthesia: MAC FLEXIBLE TRANSORAL UPPER GASTROINTESTINAL ENDOSCOPY AND COLONOSCOPY PROCEDURE NOTE UPPER ENDOSCOPY Consent: Indications for the procedure and potential complications of bleeding, perforation, reaction to medications and missed diagnosis were discussed with the patient and informed consent was obtained. Instrument: Olympus GIF H 190 J mid size upper endoscope Monitoring: Vital signs and clinical assessment, continuous EKG monitoring, Pulse oximetry, Carbon Dioxide monitoring and blood pressure monitoring were done throughout the procedure. Procedure: The patient was placed in the left lateral decubitis position and pre-procedure medications were administered and a bite block was placed. The endoscope was inserted into the mouth and advanced under direct vision to the third part of duodenum. A careful inspection was made as the upper endoscope was withdrawn including a retroflexed examination of the proximal stomach; Findings and interventions are described below. hx of gastric bypass Findings: Larynx:normal Esophagus: GE junction at 37 cm, diaphragm hiatus at 37 cm, mild esophagitis at GEJ, bx taken Stomach pouch: v short, retroflexion not possible, mucosa looked normal jejunum: normal, long retained suture removed with biopsy forceps then 3 clips applied for hemostasis Intervention: Biopsies as noted above, removal of retained suture COLONOSCOPY Instrument: Olympus variable stiffness pediatric scope 190L Colonoscopy Monitoring: Vital signs and clinical assessment, continuous EKG monitoring, Pulse oximetry, Carbon Dioxide monitoring and blood pressure monitoring were done throughout the procedure. Colon withdrawal time was 13 minutes. Procedure: The patient was placed in the left lateral decubitis position and pre-procedure medications were administered. After a digital rectal examination of the ano-rectum, the video colonoscope was inserted into the rectum and advanced through the colon to the cecum/TI. The colonoscope was slowly withdrawn in a retrograde panoramic fashion and the colon mucosa was carefully examined including a retroflexed view of the rectum. Findings and interventions are described below. Procedure Difficulty:moderate, pressure applied Findings: tortuous colon Terminal Ileum-not intubated Cecum:normal Ascending Colon: normal Transverse Colon -normal Descending Colon:normal Sigmoid Colon: 10 mm semi pedunculated polyp removed with cold snare with clip applied for hemostasis Rectum: Retroflexion with small internal hemorrhoids, grade I Anorectum - normal Colon preparation: Girard Bowel Preparation Scale Right colon; 1-2 Transverse colon: 1-2 Left colon; 2 (0 = Unprepared colon segment with mucosa not seen due to solid stool that cannot be cleared. 1 = Portion of mucosa of the colon segment seen, but other areas of the colon segment not well seen due to staining, residual stool and/or opaque liquid. 2 = Minor amount of residual staining, small fragments of stool and/or opaque liquid, but mucosa of colon segment seen well. 3 = Entire mucosa of colon segment seen well with no residual staining, small fragments of stool or opaque liquid) Impression and Post Procedure Diagnosis: Endoscopy Findings: esophagitis retained suture Colonoscopy Findings: colon polyp internal hemorrhoids Plan: Await Pathology results Repeat Colonoscopy in 1-2 years due to areas of fair prep or earlier if clinically indicated High fiber diet leaflet avoid straining at stool, epsom salts and sitz bath, anusol supps or cream Above findings were reviewed with the patient and relevant handouts were provided if indicated.
--- NOTE | 2024-04-10 10:27 | P.CONAN_ITS ---
FORM[facility]LY [facility] Active Problems Active Problems: All Active Problems Enlarged thoracic aorta (Acute) Conjunctivitis (Acute) Left knee pain (Acute) Thyroid nodule (Acute) Hematuria (Acute) Acute pyelonephritis (Acute) Urge urinary incontinence (Acute) Mild asthma (Acute) Dyspnea (Acute) Chronic pain syndrome (Acute) Left hip pain (Acute) Lumbar spondylosis (Acute) Discogenic low back pain (Acute) Lumbar radiculitis (Acute) Abdominal pain (Acute) Dysuria (Acute) Physical exam (Acute) Pelvic pain (Acute) Cervical polyp (Acute) Microscopic hematuria (Acute) Gross hematuria (Acute) Breast mass, right (Acute) Pure hypercholesterolemia (Acute) PVCs (premature ventricular contractions) (Acute) Generalized abdominal pain (Acute) Interstitial cystitis (Acute) Bladder pain (Acute) B12 deficiency (Acute) Lumbar pain (Acute) Screen for colon cancer (Acute) Hepatomegaly (Acute) HTN (hypertension) (Acute) Needle exposure (Acute) Microscopic hematuria (Acute) Murmur (Acute) Frequent UTI (Acute) Iron deficiency anemia (Acute) Dysuria (Acute) Labile blood glucose (Acute) Anemia (Chronic) Dyslipidemia (Acute) Pernicious anemia (Acute) Pre-op examination (Acute) Cervicalgia of wijloasg-bwjhngr-yzfxg region (Acute) Nontoxic multinodular goiter (Acute) Paget's disease (Acute) Vitamin D deficiency (Acute) Osteoporosis (Acute) Past Medical History Medical History Enlarged thoracic aorta Intussusception Hepatomegaly Needle exposure Microscopic hematuria Murmur Frequent UTI Iron deficiency anemia Dysuria Labile blood glucose Anemia Dyslipidemia Pernicious anemia Pre-op examination Cervicalgia of cfbuaiox-foylflb-zwmjk region Vitamin D deficiency Osteoporosis 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 Asthma Paget's disease Fibromyalgia Nontoxic multinodular goiter Osteoarthritis HTN (hypertension) Functional capacity: independent ambulation Family History Family History Mother Diabetes HTN (hypertension) Father Pancreatic cancer Diabetes HTN (hypertension) Maternal Grandmother Myocardial infarction Cancer Brother Pancreatic cancer Sister Uterine cancer Family history of problems with anesthesia: No Surgical History Surgical History History of excision of mass (08/21/23) History of removal of laparoscopic gastric banding device History of cystoscopy History of lobectomy of thyroid Mass of right parotid gland H/O laparoscopic adjustable gastric banding Hx of lithotripsy History of dilation and curettage History of delivery Hx of tonsillectomy Hx of gastric bypass History of Problems with Anesthesia: No Social History Social History Household Members: Family Housing: House Are you a primary home care music therapist to a significant other at home: No Do you presently have visiting nurse or other home services: No Alcohol intake: never Patient Tobacco Use Status: Former Tobacco user Tobacco use type: Cigarette e-Cigarette/Vaping Use: Never Used Second Hand Smoke Exposure: No Use of substances other than those prescribed or required for medical reasons: No Are you DNR?: No Advance Directives: No Advance Directives Information Provided: Yes service: No Current occupational status: unemployed and disabled Sexual orientation: Straight/Heterosexual Gender identity: Female Cognitive needs: No Hearing needs: No Vision needs: Yes (glasses) Meds Allergies Allergy/AdvReac Type Severity Reaction Status Date / Time phentermine Allergy Intermediate Palpitation Verified 04/10/24 09:18 s Active Medications: Current Medications Albuterol Sulfate (Albuterol Sulfate (0.083%) 2.5 Mg/3 Ml Vial.Neb) 2.5 mg INHALE ONCE PRN PRN Reason: Shortness of Breath/Wheezing Lactated Ringer's (Lr) 1,000 mls @ 100 mls/hr IVCONT .Q10H BEATRICE Last Admin: 04/10/24 09:44 Dose: 100 mls/hr Home Medications ?Medication ?Instructions ?Recorded ?Confirmed ?Last Taken ?Type albuterol sulfate 90 mcg/actuation 2 puff inhalation Q6H PRN 08/22/20 04/10/24 Unknown History aerosol inhaler Shortness Of Breath Or Wheezing calcium citrate 500 mg PO BID 08/17/21 04/10/24 11/08/23 History lancets 30 gauge (Pure Comfort #100 ea 08/17/21 04/10/24 Unknown History Safety Lancets) Exam Height,Weight and Vital Signs: Height 4 ft 11 in Weight 72.575 kg Last Vital Signs Temp 98.1 F 04/10/24 09:21 Pulse 65 04/10/24 09:21 Resp 16 04/10/24 09:21 BP 114/57 L 04/10/24 09:21 Pulse Ox 98 04/10/24 09:21 O2 Del Method Room Air 04/10/24 09:21 Airway Mallampati Class: III TM Dist: >3cm Neck ROM: Full Heart: RRR Lungs: CTA Assessment and Plan Assessment Anesthesia Assessment: Anesthesia Plan Discussed Final Anesthetic Review Family History of Problems with Anesthesia: No History of Problems with Anesthesia: No NPO: Yes ASA Class: II Final Preanesthetic Review: Meds/Allgs Chart Reviewed, Consent Obtained/Reviewed and Anes Risks/Benef Reviewed Patient Risk: Intermediate Procedure Risk: Low Anesthetic Plan Anesthetic Plan: MAC: Disposition: Standard PACU
[2024-04-10 11:36] VITALS: BP 115/63; PULSE 69; RESP 16; TEMP 36.3; O2SAT 100
[2024-04-10] MEDS: Acetaminophen 325 MG TABLET 650 MG PO (11:43)
[2024-04-10 11:51] VITALS: BP 131/76; PULSE 60; RESP 16; TEMP 36.3; O2SAT 100
--- NOTE | 2024-04-10 15:31 | HO.POSTANES ---
Post Anesthesia Evaluation Post Anesthesia Evaluation Date of Service: 04/10/24 Vital Signs: Vital Signs Temp Pulse Resp BP Pulse Ox O2 Del Method 04/10/24 11:51 97.3 F 60 16 131/76 100 Room Air 04/10/24 11:36 97.3 F 69 16 115/63 100 Room Air 04/10/24 09:21 98.1 F 65 16 114/57 L 98 Room Air Anesthesia: Monitored Mental Status: Awake Pain Control: Satisfactory Nausea/Vomiting: None Hydration: Adequate Anesthesia-Related Issues: No Anes. Related Issues
== END 2024-04-10 12:05 | disposition home or self-care (01) ==
PROVIDERS: PCP Internal Medicine; Visit Provider Internal Medicine Gastroenterology
PROC: (CPT 43239; principal; 2024-04-10 10:50)
DX: K29.70 Gastritis, unspecified, without bleeding (principal); K20.90 Esophagitis, unspecified without bleeding; K21.9 Gastro-esophageal reflux disease without esophagitis; D12.5 Benign neoplasm of sigmoid colon; K64.0 First degree hemorrhoids; K56.2 Volvulus; K56.1 Intussusception; R30.0 Dysuria; R31.9 Hematuria, unspecified; D64.9 Anemia, unspecified; E78.00 Pure hypercholesterolemia, unspecified; I10 Essential (primary) hypertension; Z98.84 Bariatric surgery status; Z87.891 Personal history of nicotine dependence; Z79.02 Long term (current) use of antithrombotics/antiplatelets; Z79.899 Other long term (current) drug therapy
CPT/HCPCS: 43239; 45385; 88305; 88313; J2704

== ENCOUNTER → 2024-04-10 08:40 | Outpatient (BNV) | payer OTHER, SELFPAY | PROVIDERS: PCP Internal Medicine; Visit Provider Internal Medicine Gastroenterology | DX: D64.9 Anemia, unspecified (principal); K20.90 Esophagitis, unspecified without bleeding; Z18.9 Retained foreign body fragments, unspecified material; Z98.84 Bariatric surgery status; D12.5 Benign neoplasm of sigmoid colon; K64.0 First degree hemorrhoids | CPT/HCPCS: 43239; 45385 ==

== ENCOUNTER 2024-04-16 08:22 | Outpatient (REF) | payer OTHER, SELFPAY ==
--- NOTE | ~2024-04-16 | MM_ITS ---
EXAMINATION: BONE DENSITOMETRY CLINICAL INDICATION: Unspecified menopausal and perimenopausal disorder. COMPARISON: Previous BD dated 04/06/2022 and baseline BD dated 02/21/2010. TECHNIQUE: Using a [employer] DXA System (software version: 13.1) manufactured by [employer], dual-energy x-ray absorptiometry was performed of the lumbar spine and left hip. The images are of good technical quality. Summary results are attached. FINDINGS: LEFT FEMUR, NECK: Current: BMD 0.902 g/cm2, Z-score 0.5, T-score -1.0, normal. Prior: BMD 0.969 g/cm2. Baseline: BMD 1.113 g/cm2. LEFT FEMUR, TOTAL: Current: BMD 0.887 g/cm2, Z-score 0.2, T-score -1.0, normal, 4.8% decrease from previous, 22.9% decrease from baseline (<5% change is not significant). Prior: BMD 0.932 g/cm2. Baseline: BMD 1.150 g/cm2. AP SPINE L1-L4: Current: BMD 0.911 g/cm2, Z-score -0.7, T-score -2.2, osteopenia, 5.3% increase from previous, 15.6% decrease from baseline (<5% change is not significant). Prior: BMD 0.865 g/cm2. Baseline: BMD 1.079 g/cm2. IDENTIFIED RISK FACTORS: Height loss, osteoporosis, rheumatoid arthritis, menopause, secondary osteoporosis. HISTORY OF FRACTURE: None listed. MEDICATIONS: Calcium supplements or multivitamin, vitamin D. MM/XR DEXA axial skeleton IMPRESSION: 1. DIAGNOSIS: Osteopenia based on the lowest T-score value of -2.2 in the lumbar spine applying World Health Organization criteria. 2. 10-YEAR FRACTURE RISK PREDICTION, FRAX: Major osteoporotic fracture (clinical spine, forearm, hip or shoulder) 5.6%. Hip fracture 0.4%. 3. Treatment Recommendations: NOF guidelines recommend consideration for treatment in postmenopausal women and men age 50 and older presenting with the following: -A hip or vertebral (clinical or morphometric) fracture. -T-score less than or equal to -2.5 at the femoral neck or spine after appropriate evaluation to exclude secondary causes. -Low bone mass at the hip or spine and a 10-year fracture probability by FRAX of greater than or equal to 3% for hip fracture or greater than or equal to 20% for major osteoporotic fracture based on the [place] adapted WHO algorithm. 4. Other Recommendations: All treatment decisions require clinical judgment and consideration of individual patient factors, including patient preferences, comorbidities, previous drug use, risk factors not captured in the FRAX model (e.g. frailty, falls, vitamin D deficiency, increased bone turnover, interval significant decline in bone density) and possible under or overestimation of fracture risk by FRAX. Additional medical evaluation for secondary cause of low bone mineral density may be appropriate. FUTURE SCAN RECOMMENDATION: People with diagnosed cases of osteoporosis or at high risk for fracture should have regular bone mineral density tests. For patients eligible for Medicare, routine testing is allowed once every 2 years. The testing frequency can be increased to one year for patients who have rapidly progressing disease, those who are receiving or discontinuing medical therapy to restore bone mass, or have additional risk factors.
[2024-04-16 11:00] LABS: Appearance Urine Cloudy; Color Urine Yellow; Glucose Urine UA Negative (Negative); Leukocyte Esterase Urine Large (3+) (Negative); Nitrite Urine Negative (Negative); UMIC TRIGGER UACC YES; Urine Blood Small (1+) (Negative); Urine Ketones Negative (Negative); Urine Protein Negative (Neg-Trace)
[2024-04-16 11:06] LABS: Bacteria Urine 4+ (None Seen); Hyaline Casts Urine 0-2 /LPF (0-2); Squamous Epithelial Cell Urine 0-2 /HPF (0-2); UACC Culture Trigger YES; WBC Urine >50 /HPF (0-5)
== END 2024-04-16 08:23 | disposition home or self-care (01) ==
LOC: HO.MAMMO 08:22
PROVIDERS: Internal Medicine Gastroenterology; PCP Internal Medicine; Visit Provider Internal Medicine
DX: Z13.89 Encounter for screening for other disorder (principal)
CPT/HCPCS: 77080; 81001; 81003; 87086; 87088; 87186

== ENCOUNTER 2024-04-16 08:51 | Outpatient (REF) | payer OTHER, SELFPAY ==
[2024-04-16 09:16] LABS: MANUAL DIFF FLAG NO
[2024-04-16 09:29] LABS: Basophils Percent Auto 0.6 % (0-2); Eosinophils Absolute Auto 0.1 X10*3/uL (0.0-0.4); Eosinophils Percent Auto 1.9 % (0-4); Hematocrit 32.8 % (37.0-47.0); Hemoglobin 10.9 g/dl (12.0-16.0); Imm Gran Abs Auto 0.01 X10*3/uL (0.00-0.03); Imm Gran Pct Auto 0.2 % (0.0-0.4); Lymphocytes Absolute Auto 1.4 X10*3/uL (1.2-4.9); Mean Corpuscular HGB Conc 33.2 g/dl (31.0-35.0); Mean Corpuscular Hemoglobin 29.2 pg (27.0-33.0); Mean Corpuscular Volume 87.9 fL (80.0-98.0); Mean Platelet Volume 9.8 fL (9.4-12.3); Monocytes Absolute Auto 0.4 X10*3/uL (0.1-1.2); Monocytes Percent Auto 7.6 % (2-11); Neutrophils Absolute Auto 3.2 x10*3/uL (2.0-8.3); Neutrophils Percent Auto 62.7 % (45-73); Platelet Count 283 X10*3/uL (160-400); Red Blood Count 3.73 X10*6/uL (4.20-5.50); Red Cell Distribution Width 15.5 % (11.0-16.0); White Blood Count 5.1 X10*3/uL (4.8-10.8)
[2024-04-16 10:02] LABS: Alanine Aminotransferase 15 U/L (0-31); Albumin Level 3.9 g/dL (3.5-5.0); Alkaline Phosphatase 72 U/L (39-117); Anion Gap 12 (12-20); Aspartate Amino Transferase 19 U/L (5-31); Bilirubin Total 0.5 mg/dL (0.0-1.0); Blood Urea Nitrogen 20 mg/dL (9-16); Calcium 8.9 mg/dL (8.4-10.2); Carbon Dioxide 24 mmol/L (22-29); Chloride 109 mmol/L (96-108); Cholesterol 233 mg/dL (<200); Estimated Glomerular Filt Rate > 60; Glucose Fasting 89 mg/dL (60-99); HDL Cholesterol 62 mg/dL (>40); Iron 63 mcg/dL (30-160); LDL Cholesterol Calculated 158 mg/dL (<100); Percent Iron Saturation 20 % (15-50); Potassium 3.6 mmol/L (3.3-5.1); Sodium 141 mmol/L (135-145); Total Iron Binding Capacity 315 mcg/dL (228-428); Total Protein 7.2 g/dL (6.5-8.0); Triglycerides 69 mg/dL (<150); Unsaturated Iron Binding 252 ug/dL
[2024-04-16 10:22] LABS: Free T4 (Free Thyroxine) 0.99 ng/dL (0.71-1.85); Thyroid Stimulating Hormone 1.07 uIU/mL (0.32-4.0); Vitamin D 25-OH Total 44.4 ng/mL (>30)
[2024-04-16 10:45] LABS: Folate 9.9 ng/mL (> or = 4.0); Vitamin B12 972 pg/mL (200-900)
== END 2024-04-16 08:52 | disposition home or self-care (01) ==
LOC: HO.LAB 08:51
PROVIDERS: Absent Provider Urology; PCP Internal Medicine; Visit Provider Internal Medicine
DX: Z13.820 Encounter for screening for osteoporosis (principal); Z78.0 Asymptomatic menopausal state; D64.9 Anemia, unspecified; E55.9 Vitamin D deficiency, unspecified; E04.1 Nontoxic single thyroid nodule; E04.2 Nontoxic multinodular goiter; G89.4 Chronic pain syndrome; E53.8 Deficiency of other specified B group vitamins; E78.5 Hyperlipidemia, unspecified; R31.9 Hematuria, unspecified; N39.41 Urge incontinence; R31.29 Other microscopic hematuria; N30.10 Interstitial cystitis (chronic) without hematuria
CPT/HCPCS: 36415; 77080; 80053; 80061; 81001; 81003; 82306; 82607; 82746; 83540; 84439; 84443; 85025; 87086; 87088; 87186

== ENCOUNTER 2024-04-16 13:53 | Outpatient (AMB) | payer OTHER, SELFPAY ==
--- NOTE | 2024-04-16 13:57 | AM.OFFVISNUR ---
Intake Intake Visit Reasons: IC instill #1 Allergies phentermine Allergy (Intermediate, Verified 04/10/24 09:18) Palpitations Nursing Note Patient presented to office for IC instillation. UA run as patient described pain in bladder and foul odor to urine. [place] UA with Dr. Sheth- hold off treatment, send urine for culture, send bactrim DS BID for 7 days. Script sent. Patient aware of medication and culture results call Saturday from office. Patient agreeable with plan at this time. Coding Assessment & Plan Assessment & Plan Orders: Orders AMB Urinalysis Automated Today N30.10 - Interstitial cystitis (chronic) without hematuria, R10.11 - Right upper quadrant pain, R31.29 - Other microscopic hematuria, R39.89 - Other symptoms and signs involving the genitourinary system Urine Culture Today N30.10 - Interstitial cystitis (chronic) without hematuria, N39.41 - Urge incontinence, R31.29 - Other microscopic hematuria, R31.9 - Hematuria, unspecified Medications: New sulfamethoxazole-trimethoprim 800-160 mg (Bactrim DS) 1 tab PO BID 7 days 14 tabs 0RF N39.0 - Urinary tract infection, site not specified
== END 2024-04-16 14:26 | disposition home or self-care (01) ==
PROVIDERS: PCP Internal Medicine; Visit Provider Urology
DX: R10.11 Right upper quadrant pain (principal); R31.29 Other microscopic hematuria; R39.89 Other symptoms and signs involving the genitourinary system; N30.10 Interstitial cystitis (chronic) without hematuria

== ENCOUNTER 2024-04-23 13:55 | Outpatient (AMB) | payer OTHER, SELFPAY ==
[2024-04-23 13:56] VITALS: BP 110/64; PULSE 76; BMI 32.3
--- NOTE | 2024-04-23 13:56 | A.OFFVIS_ITS ---
Vital Signs 04/23/24 13:56 Height 4 ft 11 in Weight 160 lb 0.889 oz BMI 32.3 BP 110/64 Blood Pressure Location Lt brachial Position Sitting Pulse 76 Pulse Source Pulse Oximeter Intake Visit Reasons: Osteoporosis, Multinodular goiter and Paget's Intake Note: Patient present today for Osteoporosis, Multinodular goiter and Paget's follow up visit. Machine Printer Hose Required: Yes Machine Printer Hose Language: Wine And Spir[employer] Clerk Name: Bayron Information Interpreted: non-clinical & clinical Accompanied by: Self / Same As Patient Allergies phentermine Allergy (Intermediate, Verified 04/23/24 14:03) Palpitations HPI Comments Details: 63-year-old female, for osteoporosis and Paget's disease of the bone, NTMNG.. She is feeling well. . Have not been able to give the patient a Reclast dose for Paget's disease and osteoporosis. Patient did not cover and we are in the process of appealing the decision. I had advised the patient to start alendronate 70 mg weekly, she had severe abdominal pain, nausea and care symptoms every time she took the pill and she had discontinue. She had fine-needle aspiration on 06/16/2020 of left dominant nodule, cytology was consistent with benign follicular nodule [place] category 2. . She is advised to have a total thyroidectomy by Dr. Petty. She had a left lobectomy She denies any previous fractures, she has been treated with IV bisphosphonates in the past. Last dose more than 5 years ago. She is still complaining of bone pain in the skull prominences. She denies hearing loss. She has a normal alkaline phosphatase level She has GERD, she has positive FH of osteoporosis in her sister, denies nephrolithiasis, never steroids used, Denies negative History of head or neck irradiation. Bisphosphonates use: At least 2 doses of IV bisphosphonates Calcium intake: None Vitamin D: 1000 international units daily OTC Herbal medications. None No hx of fractures since last visit 10/02/2019 AP SPINE L1-L4 (excluding L2 and L3): The data of L1-L4 has been changed to exclude the L2 and L3 vertebral bodies, because density from gastric lap band port at these levels may cause overestimation of lumbar spine density. Current: BMD 0.855 g/cm2, Z-score -1.4, T-score -2.6, osteoporosis, 16.1% decrease from previous, 16.4% decrease from baseline (<5% change is not significant). Prior: BMD 1.019 g/cm2. Baseline: BMD 1.023 g/cm2. LEFT FEMUR, NECK: Current: BMD 1.011 g/cm2, Z-score 1.0, T-score -0.2, normal. Prior: BMD 1.022 g/cm2. Baseline: BMD 1.113 g/cm2. LEFT FEMUR, TOTAL: Current: BMD 0.954 g/cm2, Z-score 0.5, T-score -0.4, normal, 12.1% decrease from previous, 17.0% decrease from baseline (<5% change is not significant). Prior: BMD 1.085 g/cm2. Baseline: BMD 1.150 g/cm2. 03/24/2015 bone scan The study demonstrates relatively diffuse uptake of tracer in the calvarium, more extensive on the left than the right in a distribution consistent with Paget's disease. The intensity is mildly increased compared to the prior study but the distribution appears unchanged. 04/15/2020 US thyroid Right Thyroid Lobe: 4.1 x 1.3 x 1.7 cm, volume 5.0 mL. Parenchyma: The gland echotexture is homogeneous. Thyroid vascularity is normal. Left Thyroid Lobe: 5.4 x 2.0 x 2.1 cm, volume 11.7 mL. Parenchyma: The gland echotexture is homogeneous. Thyroid vascularity is increased. Isthmus: 0.6 cm in maximum AP dimension. RIGHT THYROID LOBE: No nodules. ISTHMUS: No nodules. LEFT THYROID LOBE: There are 3 nodules seen. 1. Location: Superior. Size: 1.2 x 0.9 x 1.1 cm. Nodule characteristics: Heterogeneous, smooth margin, no calcification and. 2. Location: Superior/middle/lateral. Size: 0.3 x 0.2 x 0.2 cm. Nodule characteristics: Heterogeneous, smooth margin, no calcification and positive intranodular flow.. 3. Location: Inferior. Size: 3.5 x 2.0 x 3.6 cm. Nodule characteristics: Solid with small cystic component, smooth margin, no calcification and positive intranodular flow. NODES: There is an enlarged right submandibular lymph node. This measures 1.3 x 2.2 x 1.5 cm.. TECHNIQUE: 5/20/22 Using a [employer] DXA System (software version: 13.1) manufactured by [employer], dual-energy x-ray absorptiometry was performed of the lumbar spine and left hip. The images are of good technical quality. Summary results are attached. FINDINGS: AP SPINE L1-L4: BMD 0.865 g/cm2, Z-score -1.1, T-score -2.6, osteoporosis. LEFT FEMUR, NECK: BMD 0.969 g/cm2, Z-score 0.9, T-score -0.5, normal. LEFT FEMUR, TOTAL: BMD 0.932 g/cm2, Z-score 0.5, T-score -0.6, normal. IDENTIFIED RISK FACTORS: Osteoporosis, low calcium intake, height loss, secondary osteoporosis, menopause, glucocorticoids (chronic). HISTORY OF FRACTURE: None listed. MEDICATIONS: Calcium supplements or multivitamin, vitamin D. MM/XR DEXA axial skeleton IMPRESSION: 1. DIAGNOSIS: Osteoporosis based on the lowest T-score value of -2.6 in the lumbar spine applying World Health Organization criteria.? ? Laboratory Tests 02/13/21 02/13/21 02/13/21 09:28 09:34 09:34 Creatinine 0.63 Estimated GFR > 60 Calcium 8.9 Alkaline Phosphatase 84 Albumin 3.8 Collgn I C-Telopeptide 25-OH Vitamin D Total 39 TSH 0.91 Free T4 0.98 02/13/21 09:34 Creatinine Estimated GFR Calcium Alkaline Phosphatase Albumin Collgn I C-Telopeptide 738 25-OH Vitamin D Total TSH Free T4 Laboratory Tests 04/05/20 04/05/20 04/05/20 11:08 11:08 11:26 Creatinine Est GFR (Non-Af Amer) Calcium Alkaline Phosphatase Albumin N-Telopeptide X-linked 87 25-OH Vitamin D Total Vit D 1,25-Dihyd Total 78 H 1,25 Dihydroxy Vit D2 12 1,25 Dihydroxy Vit D3 66 Free T4 0.99 TSH 3rd Generation PTH Intact 53 Bone Specific Alk Phos 11.7 Thyroglobulin Antibody <1 Thyroid Peroxidase Ab 1 06/16/20 11:00 Creatinine 0.61 Est GFR (Non-Af Amer) > 60 Calcium 9.1 Alkaline Phosphatase 78 Albumin 3.8 N-Telopeptide X-linked 25-OH Vitamin D Total 22.7 Vit D 1,25-Dihyd Total 1,25 Dihydroxy Vit D2 1,25 Dihydroxy Vit D3 Free T4 TSH 3rd Generation 0.62 PTH Intact Bone Specific Alk Phos Thyroglobulin Antibody Thyroid Peroxidase Ab Last total alkaline phosphatase level was slightly elevated . Enterprise Systems Manager at [facility] gave a dose of Reclast 4 mos ago in [place] . 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 Asthma Paget's disease Fibromyalgia Nontoxic multinodular goiter Osteoarthritis HTN (hypertension) Surgical History History of excision of mass (08/21/23) History of removal of laparoscopic gastric banding device History of cystoscopy History of lobectomy of thyroid Mass of right parotid gland H/O laparoscopic adjustable gastric banding Hx of lithotripsy History of dilation and curettage History of delivery Hx of tonsillectomy Hx of gastric bypass Family History Mother Diabetes HTN (hypertension) Father Pancreatic cancer Diabetes HTN (hypertension) Maternal Grandmother Myocardial infarction Cancer Brother Pancreatic cancer Sister Uterine cancer Social History Household Members: Family Housing: House Are you a primary personal care worker to a significant other at home: No Do you presently have visiting nurse or other home services: No Alcohol intake: never Patient Tobacco Use Status: Former Tobacco user Tobacco use type: Cigarette e-Cigarette/Vaping Use: Never Used Second Hand Smoke Exposure: No service: No Current occupational status: unemployed and disabled Sexual orientation: Straight/Heterosexual Gender identity: Female Cognitive needs: No Hearing needs: No Vision needs: Yes (glasses) Female Reproductive History Menstrual Age of Menarche: 10 Physical Exam Vital Signs: Last Vital Signs Pulse 76 04/23/24 13:56 BP 110/64 04/23/24 13:56 BMI result Body Mass Index 32.3 Const Other: There is a healed scar status post left lobectomy. Right lobe appears to be normal without any nodules palpated . There is no tenderness present on palpation of the spine Assessment & Plan Assessment & Plan (1) Osteoporosis: Code(s): M81.0 - Age-related osteoporosis without current pathological fracture Category: Medical Qualifiers: Osteoporosis type: age-related Presence of current pathological fracture: without current pathological fracture Qualified Code(s): M81.0 - Age- related osteoporosis without current pathological fracture Plan: This 63-year-old female with history of osteoporosis and Paget's disease who received a few doses of IV bisphosphonate. She is following with Rheumatology for this. Last bone density showed the absence of osteoporosis There is no need to return to endocrinology and she will follow up with Rheumatology regarding osteoporosis (2) Nontoxic multinodular goiter: Code(s): E04.2 - Nontoxic multinodular goiter Category: Medical Plan: Status post left lobectomy. Right lobe was about the presence of any nodules. There is no need for endocrine follow-up regarding this . She does complain of some dysphagia but I do not think this is related to her thyroid remaining lobe (3) Paget's disease: Category: Medical Plan: Alkaline phosphatase level is slightly elevated suggesting possible recurrence of Paget's. Last alkaline phosphatase was normal Plan is to have patient follow-up with Rheumatology. No need for any further endocrine follow-up (4) Vitamin D deficiency: Code(s): E55.9 - Vitamin D deficiency, unspecified Category: Medical Plan: This was not dealt with during the this appointment Coding Level of Care Code Est Pt Level 3 (14813) Diagnoses Age-related osteoporosis without current pathological fracture M81.0 Osteoporosis type: age-related Presence of current pathological fracture: without current pathological fracture Nontoxic multinodular goiter E04.2 Paget's disease Vitamin D deficiency E55.9
== END 2024-04-23 14:19 | disposition home or self-care (01) ==
PROVIDERS: PCP Internal Medicine; Visit Provider Internal Medicine Endocrinology, Diabetes & Metabolism
DX: M81.0 Age-related osteoporosis without current pathological fracture (principal); E04.2 Nontoxic multinodular goiter; E55.9 Vitamin D deficiency, unspecified
CPT/HCPCS: 99213

== ENCOUNTER → 2024-04-23 13:55 | Outpatient (BNVA) | payer OTHER, SELFPAY | PROVIDERS: PCP Internal Medicine; Visit Provider Internal Medicine Endocrinology, Diabetes & Metabolism | DX: M81.0 Age-related osteoporosis without current pathological fracture (principal); E04.2 Nontoxic multinodular goiter; M88.0 Osteitis deformans of skull; E27.49 Other adrenocortical insufficiency; Z78.0 Asymptomatic menopausal state | CPT/HCPCS: 99212 ==

== ENCOUNTER 2024-04-24 10:21 | Outpatient (AMB) | payer OTHER, SELFPAY ==
--- NOTE | 2024-04-24 10:27 | MHC.OFFVIS ---
Vital Signs 04/24/24 10:29 Height 4 ft 11 in Weight 158 lb 11.725 oz BMI 32.1 BP 97/59 L Blood Pressure Location Lt brachial Position Sitting Pulse 64 Intake Visit Reasons: S/P [place]; Intake Note: Maura presents in the office as a follow up colonoscopy. CC: Here for results - having issues trouble. Allergies phentermine Allergy (Intermediate, Verified 04/24/24 10:29) Palpitations HPI HPI S/P [place]; : Details: 63 y/o F w/ , HTN, HLD,hx of gastric lap band with conversion to RYGB, hx of nephrolithiasis with lithotripsy 2019, mild intermittent asthma, fibromyalgia, osteoarthritis, Paget's disease, and parotid gland mass who I am seeing for f/u RECAP: Recent admission for acute pyelonephritis, sepsis transfer to [place] in October- for jejuno jejunal intussusception also has hx of ANEUDY and seeing Dr. Georges HGb has been chronically stable at around 10 g/dl EGD/COLO: Endoscopy Findings: esophagitis retained suture Colonoscopy Findings: colon polyp internal hemorrhoids Tubular adenoma--path IMAGING: CT 11/09 hepatomegaly and prominent CBD ?jejuno jejunal intussussception INTERIM: she still has nausea, satiety taking PPI--omeprazole 20 mg bid, she feels it is not helping ongoing reflux appetite is fair she felt no better with levsin EXAM: GENERAL: The patient is well developed and nontoxic. VITAL SIGNS:see workflow HEENT: Nonicteric sclerae, PERRLA, EOMI. Oropharynx clear. Moist mucous membranes. Conjunctivae appear well perfused. No thyroid mass. CHEST: Chest wall is nontender. HEART: Regular rate and rhythm without murmurs. LUNGS: Clear to auscultation bilaterally. ABDOMEN: Soft, positive bowel sounds, generalized tenderness, no organomegaly.no flank tenderness SKIN: No rash, no excessive bruising, petechiae, or purpura. NEUROLOGIC: Cranial nerves II-XII intact without motor/sensory deficit. psych: nml affect A/P: 1/ jejuno jejunal intussusception maybe causing her abdominal pain but the location is atypical, but she also has kidney issues, other possibilities include gastroparesis and retained cbd stones, 2/ chronic anemia maybe due to hematuria and malabsorption PLAN: 1/ MRCP 2/ GES 3/ if above neg then small bowel follow thru 4/ change to esomperazole --stop levsin as did not help [facility] Medical History Enlarged thoracic aorta Intussusception Hepatomegaly Needle exposure Microscopic hematuria Murmur Frequent UTI Iron deficiency anemia Dysuria Labile blood glucose Anemia Dyslipidemia Pernicious anemia Pre-op examination Cervicalgia of gxfjylxr-jmygoxw-mcctj region Vitamin D deficiency Osteoporosis 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 Asthma Paget's disease Fibromyalgia Nontoxic multinodular goiter Osteoarthritis HTN (hypertension) Surgical History History of excision of mass (08/21/23) History of removal of laparoscopic gastric banding device History of cystoscopy History of lobectomy of thyroid Mass of right parotid gland H/O laparoscopic adjustable gastric banding Hx of lithotripsy History of dilation and curettage History of delivery Hx of tonsillectomy Hx of gastric bypass Family History Mother Diabetes HTN (hypertension) Father Pancreatic cancer Diabetes HTN (hypertension) Maternal Grandmother Myocardial infarction Cancer Brother Pancreatic cancer Sister Uterine cancer Social History Household Members: Family Housing: House Are you a primary resident care aide to a significant other at home: No Do you presently have visiting nurse or other home services: No Alcohol intake: never Patient Tobacco Use Status: Former Tobacco user Tobacco use type: Cigarette e-Cigarette/Vaping Use: Never Used Second Hand Smoke Exposure: No service: No Current occupational status: unemployed and disabled Sexual orientation: Straight/Heterosexual Gender identity: Female Cognitive needs: No Hearing needs: No Vision needs: Yes (glasses) Female Reproductive History Menstrual Age of Menarche: 10 Physical Exam Vital Signs: Last Vital Signs Pulse 64 04/24/24 10:29 BP 97/59 L 04/24/24 10:29 BMI result Body Mass Index 32.1 Assessment & Plan Assessment & Plan (1) Upper abdominal pain: Code(s): R10.10 - Upper abdominal pain, unspecified Category: Medical Plan: PLAN: 1/ MRCP 2/ GES 3/ if above neg then small bowel follow thru 4/ change to esomperazole --stop levsin as did not help Orders: Orders NM gastric emptying study Today R68.81 - Early satiety MR MRCP Today R10.10 - Upper abdominal pain, unspecified Medications: New esomeprazole magnesium 40 mg PO DAILY 30 caps 2RF Discontinued omeprazole Discontinued Reason: Doctor's Order 20 mg PO DAILY 90 days 90 caps 5RF levofloxacin Discontinued Reason: Doctor's Order 500 mg PO DAILY 7 tabs 0RF Coding Level of Care Code Est Pt Level 4 (33636) Diagnoses Upper abdominal pain R10.10
[2024-04-24 10:29] VITALS: BP 97/59; PULSE 64; BMI 32.1
--- OUTSIDE RECORDS SUMMARY | 2024-04-24 11:32 | XMS_ITS | Patient Health Record ---
Author Organization [facility] Address [address], [place] [id number] Care Team Providers Care Library Circulation Department Chief Name Role Phone [facility], Nursing Unavailable [phone] REASON FOR REFERRAL No Information SOCIAL HISTORY Sex Assigned At : Social History Observation Description Sex Assigned At Unknown PLAN OF TREATMENT No Information Insurance Providers Payer Name Payer Address Payer Phone Subscriber Number Group Number Insured Name Patient Relationship to Insured Coverage Start Date Coverage End Date [facility] [place] [address] [address] [place] [address] [id number] JEWELS ESCOBEDO Self - patient is the insured
== END 2024-04-24 11:03 | disposition home or self-care (01) ==
LOC: HO.HGI 10:21
PROVIDERS: PCP Internal Medicine; Visit Provider Internal Medicine Gastroenterology
DX: R10.10 Upper abdominal pain, unspecified (principal)
CPT/HCPCS: 99214

== ENCOUNTER → 2024-04-24 10:21 | Outpatient (BNVA) | payer OTHER, SELFPAY | PROVIDERS: PCP Internal Medicine; Visit Provider Internal Medicine Gastroenterology | DX: R10.10 Upper abdominal pain, unspecified (principal) | CPT/HCPCS: 99212 ==

== ENCOUNTER 2024-05-21 09:26 | Outpatient (REF) | payer OTHER, SELFPAY ==
--- NOTE | ~2024-05-21 | MR_ITS ---
EXAMINATION: MRI ABDOMEN WITHOUT CONTRAST (MRCP) CLINICAL INFORMATION: Reason for Exam R10.10 - Upper abdominal pain, unspecified COMPARISON: CT scanning of the abdomen from 11/08/2023 TECHNIQUE: Multiplanar MR images through the abdomen were obtained on a 1.5 Larissa MR system without IV contrast. Heavily T2-weighted MRCP sequences of the biliary tree were obtained in multiple planes. FINDINGS: LUNG BASES: Lung bases are clear. LIVER: The liver is normal in size and signal. No hepatic steatosis is seen. No focal cystic or solid mass is present. GALLBLADDER: Gallbladder is surgically absent BILIARY TREE: No intrahepatic biliary ductal dilation. The common bile duct is 0.8 cm in diameter. No intraluminal filling defects seen. PANCREAS: The pancreas is normal in appearance. No ductal dilatation, mass or maría-pancreatic fluid seen. SPLEEN: Normal. Normal size. No focal lesion. ADRENAL GLANDS: Normal. No adrenal mass. KIDNEYS AND URETERS: Normal size and signal. No hydronephrosis or mass. LYMPHOVASCULAR STRUCTURES: Normal caliber aorta. IVC patent. No pathologically enlarged abdominal or retroperitoneal lymphadenopathy by size criteria OSSEOUS STRUCTURES: No acute or suspicious osseous abnormalities. MR/MR MRCP IMPRESSION: Status post cholecystectomy. No dilated CBD no evidence of pancreatic lesions or pancreatic ductal dilatation, normal liver signal and size
== END 2024-05-21 09:27 | disposition home or self-care (01) ==
LOC: HO.MRI 09:26
PROVIDERS: PCP Internal Medicine; Visit Provider Internal Medicine Gastroenterology
DX: R10.10 Upper abdominal pain, unspecified (principal)
CPT/HCPCS: 74181

== ENCOUNTER 2024-05-27 13:12 | Outpatient (AMB) | payer OTHER, SELFPAY ==
--- OUTSIDE RECORDS SUMMARY | 2024-05-27 13:14 | XMS_ITS | Continuity of Care Document ---
Author Organization [facility] Address [address] [place] [address]- Care Team Providers Care Template Worker Name Role Phone Ernesto Conteh MD, Mary Jo Vigil Primary Care Physician Encounter [facility] Date(s): 12/27/23 - 04/25/24 [facility] [address] [place] [address]- Attending Physician: Peter SOLANO, Miguel Referring Physician: Mary Jo Ascencio MD Allergies, Adverse Reactions, Alerts No Known Allergies Immunizations Given and Recorded Vaccine Date Status Refusal Reason Diphth-Tetanus Toxoids Adsorbed(oldterm) 12/31/08 Given Medications Albuterol 0 Refills, Maintenance, 04/08/15 9:32:38 Start Date: 04/08/15 Status: Ordered calcium and vitamin D combination 315 mg-200 iu oral tablet 1 tablet, By Mouth, 3 times a day, # 270 tablet, 3 Refills, Maintenance, 03/28/22 11:29:00 EDT, Tablet, [facility], Partial fill upon patient request [...] Reference Physician Member Role: PCP Address: Address: [address] [place] [address] [address] [place] [address]- Care Team Related Persons Name: MEERA TAVARES Address: home [address] [place] [address] Name: KENNETH SANTILLAN Address: [place] [address]
--- OUTSIDE RECORDS SUMMARY | 2024-05-27 13:15 | XMS_ITS | Patient Health Record ---
Author Organization [facility] Address [address], [place] [id number] Care Team Providers Care Cotton Bag Sewer Name Role Phone [facility], Nursing Unavailable [phone] REASON FOR REFERRAL No Information SOCIAL HISTORY Sex Assigned At : Social History Observation Description Sex Assigned At Unknown PLAN OF TREATMENT No Information Insurance Providers Payer Name Payer Address Payer Phone Subscriber Number Group Number Insured Name Patient Relationship to Insured Coverage Start Date Coverage End Date [facility] [place] [address] [address] [place] [address] [id number] JEWELS ESCOBEDO Self - patient is the insured
--- NOTE | 2024-05-27 13:44 | AM.OFFVISNUR ---
Intake Visit Reasons: IC instillation #3/U/A Allergies phentermine Allergy (Intermediate, Verified 04/24/24 10:29) Palpitations Office Procedures Bladder/Catheter Procedure Details: Patient presents to office for IC instillation #1 as previous instillations had to be rescheduled. UA run- unremarkable. 14fr straight cath used to instill: 10mls bupivicaine 0.50% 2mls heparin 10,000 units 10 mls lidocaine 2% lidocaine urojet 1ml solumedrol 29935-Hwwgjbvcya of Bladder 65294-Uohftb Bladder Catheter Procedure code (CPT) selection complete Results AMB Urinalysis, Automated UA Leukoctes 0 Denilson/uL Last Edit by Leonides Mims LPN on 05/27/24 13:48 UA Nitrite Negative Last Edit by Leonides Mims LPN on 05/27/24 13:48 UA Urobilinogen 0.2 mg/dL Last Edit by Leonides Mims LPN on 05/27/24 13:48 UA Protein 30 mg/dL Last Edit by Leonides Mims LPN on 05/27/24 13:48 UA pH 6.0 Last Edit by Leonides Mims LPN on 05/27/24 13:48 UA Blood 25 Brady/uL Last Edit by Leonides Mims LPN on 05/27/24 13:48 UA Specific [place] 1.025 Last Edit by Leonides Mims LPN on 05/27/24 13:48 UA Ketone Negative Last Edit by Leonides Mims LPN on 05/27/24 13:48 UA Bilirubin 1 mg/dL Last Edit by Leonides Mims LPN on 05/27/24 13:48 UA Glucose 0 mg/dL Last Edit by Leonides Mims LPN on 05/27/24 13:48 Assessment & Plan Assessment & Plan Orders: Orders AMB Urinalysis Automated Today N30.10 - Interstitial cystitis (chronic) without hematuria, N39.41 - Urge incontinence, R31.9 - Hematuria, unspecified, R39.89 - Other symptoms and signs involving the genitourinary system AMB Bladder/Catheter Procedure Today N30.10 - Interstitial cystitis (chronic) without hematuria, N39.41 - Urge incontinence, R31.0 - Gross hematuria, R39.89 - Other symptoms and signs involving the genitourinary system
== END 2024-05-27 14:30 | disposition home or self-care (01) ==
LOC: HO.HUSH 13:12
PROVIDERS: PCP Internal Medicine; Visit Provider Urology
DX: R31.9 Hematuria, unspecified (principal); N39.41 Urge incontinence; N30.10 Interstitial cystitis (chronic) without hematuria; R39.89 Other symptoms and signs involving the genitourinary system

== ENCOUNTER → 2024-05-27 13:12 | Outpatient (BNVA) | payer OTHER, SELFPAY | PROVIDERS: PCP Internal Medicine; Visit Provider Urology | DX: N30.11 Interstitial cystitis (chronic) with hematuria (principal); N39.41 Urge incontinence | CPT/HCPCS: 51700; 51701; 81003 ==

== ENCOUNTER → 2024-06-24 13:12 | Outpatient (BNVA) | payer OTHER, SELFPAY | PROVIDERS: PCP Internal Medicine; Visit Provider Urology | DX: N30.10 Interstitial cystitis (chronic) without hematuria (principal); N39.41 Urge incontinence | CPT/HCPCS: 51700; 51701 ==

== ENCOUNTER 2024-07-29 13:28 | Outpatient (REF) | payer OTHER, SELFPAY | END 2024-07-29 13:29 | disposition home or self-care (01) | LOC: HO.LAB 13:28 | PROVIDERS: PCP Internal Medicine; Visit Provider Urology | DX: R10.2 Pelvic and perineal pain (principal); R31.29 Other microscopic hematuria; N39.41 Urge incontinence; N10 Acute pyelonephritis; R31.0 Gross hematuria; N30.10 Interstitial cystitis (chronic) without hematuria; R39.89 Other symptoms and signs involving the genitourinary system | CPT/HCPCS: 51700; 51701; 87086 ==

== ENCOUNTER 2024-08-26 13:01 | Outpatient (AMB) | payer OTHER, SELFPAY ==
--- NOTE | 2024-08-26 13:27 | AM.OFFVISNUR ---
Intake Visit Reasons: IC instillation #6 Allergies phentermine Allergy (Intermediate, Verified 04/24/24 10:29) Palpitations Office Procedures Bladder/Catheter Procedure Details: Patient presents to office for IC instillation #3 as previous instillations had to be rescheduled. UA run- unremarkable. 14fr straight cath used to instill: 10mls bupivicaine 0.50% 2mls heparin 10,000 units 10 mls lidocaine 2% lidocaine urojet 1ml solumedrol 66308-Ynfstgiulb of Bladder 83570-Zpxuyj Bladder Catheter Procedure code (CPT) selection complete Results AMB Urinalysis, Automated UA Leukoctes 0 Denilson/uL Last Edit by Schuyler Cain RN on 08/26/24 13:34 UA Nitrite Negative Last Edit by Schuyler Cain RN on 08/26/24 13:34 UA Urobilinogen 0.2 mg/dL Last Edit by Schuyler Cain RN on 08/26/24 13:34 UA Protein 15 mg/dL Last Edit by Schuyler Cain RN on 08/26/24 13:34 UA pH 6.0 Last Edit by Schuyler Cain RN on 08/26/24 13:34 UA Blood 25 Brady/uL Last Edit by Schuyler Cain RN on 08/26/24 13:34 UA Specific [place] 1.015 Last Edit by Schuyler Cain RN on 08/26/24 13:34 UA Ketone Negative Last Edit by Schuyler Cain RN on 08/26/24 13:34 UA Bilirubin 0 mg/dL Last Edit by Schuyler Cain RN on 08/26/24 13:34 UA Glucose 0 mg/dL Last Edit by Schuyler Cain RN on 08/26/24 13:34 Assessment & Plan Assessment & Plan Orders: Orders AMB Bladder/Catheter Procedure Today N30.10 - Interstitial cystitis (chronic) without hematuria, R10.2 - Pelvic and perineal pain, R39.89 - Other symptoms and signs involving the genitourinary system
== END 2024-08-26 14:01 | disposition home or self-care (01) ==
LOC: HO.HUSH 13:01
PROVIDERS: PCP Internal Medicine; Visit Provider Urology
DX: Z13.9 Encounter for screening, unspecified (principal)

== ENCOUNTER → 2024-08-26 13:01 | Outpatient (BNVA) | payer OTHER, SELFPAY | PROVIDERS: PCP Internal Medicine; Visit Provider Urology | DX: N30.10 Interstitial cystitis (chronic) without hematuria (principal); R10.2 Pelvic and perineal pain; R39.89 Other symptoms and signs involving the genitourinary system | CPT/HCPCS: 51700; 51701; 81003; J0665; J1644; J2003; J2919 ==

== ENCOUNTER 2024-09-14 10:08 | Outpatient (REF) | payer OTHER, SELFPAY | END 2024-09-14 10:09 | disposition home or self-care (01) | LOC: HO.LAB 10:08 | PROVIDERS: PCP Internal Medicine; Visit Provider Internal Medicine | DX: R30.0 Dysuria (principal); Z23 Encounter for immunization | CPT/HCPCS: 81003; 87086; 90471; 90677; 99212 ==

== ENCOUNTER 2024-09-14 10:08 | Outpatient (AMB) | payer OTHER, SELFPAY ==
--- NOTE | 2024-09-14 10:19 | MHC.PC.OV ---
Vital Signs 09/14/24 10:21 Height 4 ft 11 in Weight 159 lb BMI 32.1 BP 110/80 Blood Pressure Location Lt brachial Position Sitting Intake Visit Reasons: anemia Intake Note: Patient here for a follow up Anemia Director Of Speech Pathology Required: No Accompanied by: Self / Same As Patient Allergies phentermine Allergy (Intermediate, Verified 09/14/24 10:36) Palpitations Medication List - Last Reconciled 09/14/24 by Mary Jo Conteh MD acetaminophen 1,000 mg (2 x 500 mg) PO Q8H PRN albuterol sulfate 2.5 mg (3 mL) inhalation RQ4H WHILE AWAKE albuterol sulfate 90 mcg/actuation 2 puffs inhalation Q6H PRN ascorbic acid (vitamin C) (Vitamin C) 500 mg PO BID blood sugar diagnostic (FreeStyle Lite Strips) to test 2 to 3 times a day as directed blood-glucose meter (FreeStyle Lite Meter kit) As directed calcium citrate 500 mg PO BID cholecalciferol (vitamin D3) 1,250 mcg PO QWEEK esomeprazole magnesium 40 mg PO DAILY estradiol (Vagifem) 10 mcg vaginal 2XW folic acid 1 mg PO DAILY 90 days gabapentin 100 mg PO BID hydroxyzine pamoate 50 mg PO BEDTIME 90 days hyoscyamine sulfate 0.125 mg PO BID-QID PRN incontinence pad, liner, disp As directed lancets (FreeStyle Lancets) Use 1 lancet once a day lancets (Pure Comfort Safety Lancets) As directed metoprolol succinate ER 25 mg PO DAILY 90 days nebulizers (AeroEclipse II Nebulizer) As directed ondansetron 4 mg PO Q8H PRN phenazopyridine (Pyridium) 100 mg PO TID PRN 5 days pravastatin 20 mg PO DAILY 90 days sulfamethoxazole-trimethoprim 800-160 mg (Bactrim DS) 1 tab PO BID 7 days syringe with needle (Lessonwriter Luer Lock Syringe with needle) As directed Tobacco use date assessed: 03/11/24 Fall risk assessment: No Falls in past year Last assessed Fall Risk: 09/14/24 Dental Screening Dental Screen Date: 03/11/24 HPI HPI Comments History of Present Illness Details This is a 64-year-old female with iron-deficiency anemia, Paget's disease and pure hypercholesterolemia that comes today complaining of neck pain, thoracic spine pain and lumbar pain. She would like x-rays. Anemia is follow by Hematology-Oncology. Paget's disease is follow by Rheumatology. On statins for her elevated cholesterol. She has microscopic hematuria follow by Urology. MRI of the abdomen was discussed. Also DEXA scan was discussed. She thinks she can have cancer because of bladder pain and hematuria that has been present for years and wants a PET scan. I discuss it with her and I did say that is not clinically indicated. She has not lost weight and does not looks chronically ill. 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 Asthma Paget's disease Fibromyalgia Nontoxic multinodular goiter Osteoarthritis HTN (hypertension) Surgical History History of excision of mass (08/21/23) History of removal of laparoscopic gastric banding device History of cystoscopy History of lobectomy of thyroid Mass of right parotid gland H/O laparoscopic adjustable gastric banding Hx of lithotripsy History of dilation and curettage History of delivery Hx of tonsillectomy Hx of gastric bypass Family History Mother Diabetes HTN (hypertension) Father Pancreatic cancer Diabetes HTN (hypertension) Maternal Grandmother Myocardial infarction Cancer Brother Pancreatic cancer Sister Uterine cancer Social History Household Members: Family Housing: House Are you a primary career technical counselor to a significant other at home: No Do you presently have visiting nurse or other home services: No Alcohol intake: never Patient Tobacco Use Status: Former Tobacco user Tobacco use type: Cigarette e-Cigarette/Vaping Use: Never Used Second Hand Smoke Exposure: No service: No Current occupational status: unemployed and disabled Sexual orientation: Straight/Heterosexual Gender identity: Female Cognitive needs: No Hearing needs: No Vision needs: Yes (glasses) Female Reproductive History Menstrual Age of Menarche: 10 Questionnaire Thrive Questionnaire Date Thrive assessed: 03/11/24 AUREA-7 AMB Questionnaire AUREA-7 Date AUREA - 7 assessed: 03/11/24 Source: Developed by Drs. Maxx Hayden, Raquel Cervantes, Jourdan Ruano and colleagues, with an educational milady from [employer]. Review of Systems Const All systems reviewed & are unremarkable except as noted in HPI and below Card Denies chest pain at rest, Denies chest pain with activity, Denies edema, Denies irregular heart rhythm, Denies claudication, Denies dyspnea, Denies dyspnea on exertion, Denies orthopnea, Denies paroxysmal nocturnal dyspnea and Denies slow heart rate Resp Denies cough, Denies dyspnea and Denies dyspnea on exertion GI Denies abdominal pain, Denies change in bowel habits, Denies excessive flatus, Denies nausea and Denies vomiting Neuro Denies behavioral changes and Denies lack of coordination Psych Denies behavioral changes Physical exam (Primary Care) Vital Signs: Last Vital Signs BP 110/80 09/14/24 10:21 BMI result Body Mass Index 32.1 BMI Assessment/Plan discussion: High BMI High, discussed plan: lifestyle, weight reduction, dietary and physical activity Tobacco/Smoking Status: Tobacco use Status Tobacco use date assessed 03/11/24 09/14/24 10:20 Patient Tobacco Use Status Former Tobacco user 09/14/24 10:20 Tobacco use type Cigarette 09/14/24 10:20 e-Cigarette/Vaping Use Never Used 09/14/24 10:20 Thrive Assessment: Date of Thrive Assessment Date Thrive assessed 03/11/24 09/14/24 10:20 Resp Effort & Inspection: normal respiratory effort Auscultation: clear to auscultation bilaterally Cardio Jugular venous distension: no JVD Rate: regular rate Rhythm: regular rhythm Heart sounds: S1 normal heart sound present and S2 normal heart sound present Extrem General: Yes full ROM Results AMB Urinalysis, Automated UA Leukoctes 2 Denilson/uL Last Edit by RHEA Lux on 09/14/24 10:44 UA Nitrite Negative Last Edit by RHEA Lux on 09/14/24 10:44 UA Urobilinogen 0.2 mg/dL Last Edit by RHEA Lux on 09/14/24 10:44 UA Protein 0 mg/dL Last Edit by Jerrell RuizRHEA on 09/14/24 10:44 UA pH 6.0 Last Edit by Mary Joparvizmaty JosephRHEA on 09/14/24 10:44 UA Blood 1 Brady/uL Last Edit by Jerrell Ruiz, GABYA on 09/14/24 10:44 UA Specific [place] 1.015 Last Edit by Mary Joparvizmaty JosephRHEA on 09/14/24 10:44 UA Ketone Negative Last Edit by Jerrell Ruiz, GABYA on 09/14/24 10:44 UA Bilirubin 0 mg/dL Last Edit by Jerrell Ruiz, RMA on 09/14/24 10:44 UA Glucose 0 mg/dL Last Edit by Jerrell RuizRHEA on 09/14/24 10:44 Immunizations pneumoc 20-sonja conj-dip cr(PF) 0.5 mL IM syringe Performing Provider: Mary Jo Conteh MD Performing Location: [facility] Administered by: RHEA Lux on 09/14/24 11:05 Dose Route Admin Location Dispensed Lot Number Expiration Date [facility] Manager Distribution 0.5 mL IM Left Deltoid 0.5 mL [id number] 10/18/25 [employer] [employer] VIS Given Date VIS Provided VIS Publication Date 09/14/24 Single Vaccine 21 Eligibility Eligibility Date Funding Source Not [facility] Eligible 09/14/24 Private Results Reviewed Results Reviewed: Laboratory Last Values Urine pH (Auto) 6.0 09/14/24 10:39 Specific [place] (Auto) 1.015 09/14/24 10:39 Urine Protein (Auto) 0 mg/dL 09/14/24 10:39 Glucose (UA)(Auto) 0 mg/dL 09/14/24 10:39 Urine Ketones (Auto) Negative 09/14/24 10:39 Urine Blood (Auto) 1 Brady/uL 09/14/24 10:39 Urine Nitrite (Auto) Negative 09/14/24 10:39 Urine Bilirubin (Auto) 0 mg/dL 09/14/24 10:39 Urine Urobilinogen (Auto) 0.2 mg/dL 09/14/24 10:39 Leukocyte Esterase (Auto) 2 Denilson/uL 09/14/24 10:39 Coding Level of Care Code Est Pt Level 4 (27896) Complex EM visit Add On G2211 Diagnoses Thoracic spine pain M54.6 Lumbar pain M54.50 Neck pain M54.2 Pure hypercholesterolemia E78.00 Iron deficiency anemia secondary to inadequate dietary iron intake D50.8 Iron deficiency anemia type: inadequate dietary iron intake Paget's disease Time Spent (min) 22 Assessment & Plan Assessment & Plan (1) Thoracic spine pain: Code(s): M54.6 - Pain in thoracic spine Category: Medical Plan: X-ray ordered. (2) Lumbar pain: Code(s): M54.50 - Low back pain, unspecified Category: Medical Plan: X-ray ordered. (3) Neck pain: Code(s): M54.2 - Cervicalgia Category: Medical Plan: X-ray ordered. (4) Pure hypercholesterolemia: Code(s): E78.00 - Pure hypercholesterolemia, unspecified Category: Medical Plan: Continue statins. (5) Iron deficiency anemia: Code(s): D50.9 - Iron deficiency anemia, unspecified Category: Medical Qualifiers: Iron deficiency anemia type: inadequate dietary iron intake Qualified Code(s): D50.8 - Other iron deficiency anemias Plan: Follow-up with Hematology-Oncology. (6) Paget's disease: Category: Medical Plan: Follow-up with rheumatology. Orders: Orders Complete Blood Count Auto Diff Today D64.9 - Anemia, unspecified IRON PROFILE Today D64.9 - Anemia, unspecified Lipid Panel Today E78.5 - Hyperlipidemia, unspecified Comprehensive [place]. Panel Fast Today N10 - Acute pyelonephritis XR cervical spine 2V Today M54.2 - Cervicalgia XR thoracic spine 2V Today M54.6 - Pain in thoracic spine XR lumbar spine 2-3V Today M54.50 - Low back pain, unspecified Pneumococcal 20 Immunization Today Z23 - Encounter for immunization Urine Culture Today R30.0 - Dysuria AMB Urinalysis Automated Today R30.0 - Dysuria Vitamin B12 and Folate Today E53.8 - Deficiency of other specified B group vitamins Vitamin D 25-OH Total Today E55.9 - Vitamin D deficiency, unspecified
[2024-09-14 10:21] VITALS: BP 110/80; BMI 32.1
== END 2024-09-14 11:08 | disposition home or self-care (01) ==
PROVIDERS: PCP Internal Medicine; Visit Provider Internal Medicine
DX: M54.6 Pain in thoracic spine (principal); M54.50 Low back pain, unspecified; M54.2 Cervicalgia; E78.00 Pure hypercholesterolemia, unspecified; D50.8 Other iron deficiency anemias; Z23 Encounter for immunization; R30.0 Dysuria

== ENCOUNTER 2024-09-28 13:24 | Outpatient (AMB) | payer OTHER, SELFPAY ==
--- NOTE | 2024-09-27 20:57 | MHC.OFFVIS ---
Intake Visit Reasons: 6m follow up/IC instill #4 Intake Note: Patient is present for 6m f/u IC still #4 Urology Medication:GABAPENTIN,PYRIDIUM,BACTRIM,HYDROXYZINE,ESTRADIOL Antibiotic Allergy:NONE Blood Thinner:NONE Principal Cloud Architect Required: Yes Principal Cloud Architect Name: [id number] Information Interpreted: non-clinical & clinical Allergies phentermine Allergy (Intermediate, Verified 09/28/24 13:31) Palpitations Medication List - Last Reconciled 09/28/24 by Saige Henning MD acetaminophen 1,000 mg (2 x 500 mg) PO Q8H PRN albuterol sulfate 2.5 mg (3 mL) inhalation RQ4H WHILE AWAKE albuterol sulfate 90 mcg/actuation 2 puffs inhalation Q6H PRN ascorbic acid (vitamin C) (Vitamin C) 500 mg PO BID blood sugar diagnostic (FreeStyle Lite Strips) to test 2 to 3 times a day as directed blood-glucose meter (FreeStyle Lite Meter kit) As directed calcium citrate 500 mg PO BID cholecalciferol (vitamin D3) 1,250 mcg PO QWEEK esomeprazole magnesium 40 mg PO DAILY estradiol (Vagifem) 10 mcg vaginal 2XW folic acid 1 mg PO DAILY 90 days gabapentin 300 mg PO BID hydroxyzine pamoate 50 mg PO BEDTIME 90 days hyoscyamine sulfate 0.125 mg PO BID-QID PRN incontinence pad, liner, disp As directed lancets (FreeStyle Lancets) Use 1 lancet once a day lancets (Pure Comfort Safety Lancets) As directed metoprolol succinate ER 25 mg PO DAILY 90 days nebulizers (AeroEclipse II Nebulizer) As directed ondansetron 4 mg PO Q8H PRN phenazopyridine (Pyridium) 100 mg PO TID PRN 5 days pravastatin 20 mg PO DAILY 90 days sulfamethoxazole-trimethoprim 800-160 mg (Bactrim DS) 1 tab PO BID 7 days syringe with needle (DataRank Luer Lock Syringe with needle) As directed HPI Comments Details: 09/28/24--Maura is a 64-year-old female with chronic interstitial cystitis. Last cystoscopy hydrodistention was on 12/24/2023. IC management has included bladder instillations.She was started on gabapentin 100 mg bid which she states has helped but she still has bladder pain. Discussed continuing bladder instillaitons, increase gabapentin to 300 bid. Review of chart: 03/30/24--Maura is a 63-year-old female with chronic interstitial cystitis. Status post repeat cystoscopy hydrodistention on 12/24/2023. She states that urinary symptoms are improved. She still does get a flare of bladder pain intermittently. Will continue hydroxyzine. Will resume bladder installations every 2 weeks x3 and then maintenance once a month to once every 6 weeks, cont vaginal estrogen therapy, follow-up with me in 6 months. 12/02/23--Maura is a 62-year-old female who presents today to the office for FU, she was in the ED on 11/27/23 with complaints of abdominal, bladder pain and hematuria. She previously had a CTAP w/contrast done on 11/09/23 - and in regards to urinary tract; right kidney changes suggestive of focal pyelonephritis, negative for nephrolithiasis 07/10/2023? Maura is followed today for bladder pain. She was last seen by me on 03/25/2023 for bladder pain. Discussed weekly bladder installations for 4 weeks, then every 2 weeks and Vagifem suppository twice a week was ordered at that time. She has a history of diabetes and gastric bypass. She had noted improvement with the bladder instillations. She has not had a bladder instillation since 05/17/2023 and is complaining that the bladder pressure pain is back. She states that the hydroxyzine did not help her and seem to cause more burning with urination. 03/25/2023? The patient is Upper Sorbian speaking female. Certified Upper Sorbian speaking auditor medical claims was present during the visit. LV--12/06/22-- seen in the office for recurrent UTIs. Comorbidity diabetes. h/o Gastric bypass prior cardiology for evaluation for tachycardia.? also states she needed to have a breast biopsy done s/p cystoscopy hydrodistension- findings bladder capacity 700 mL, no glomerulations visualized previous pelvic exam, point bladder tenderness--treated with Vistaril 25 mg qhs.? and Bladder instillations weekly for 6 weeks, then maintenance q month Imagin05/17/22--CT ABDOMEN AND PELVIS WITH CONTRAST-- kidneys wnl, no renal calculi?? 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 Asthma Paget's disease Fibromyalgia Nontoxic multinodular goiter Osteoarthritis HTN (hypertension) Surgical History History of excision of mass (08/21/23) History of removal of laparoscopic gastric banding device History of cystoscopy History of lobectomy of thyroid Mass of right parotid gland H/O laparoscopic adjustable gastric banding Hx of lithotripsy History of dilation and curettage History of delivery Hx of tonsillectomy Hx of gastric bypass Family History Mother Diabetes HTN (hypertension) Father Pancreatic cancer Diabetes HTN (hypertension) Maternal Grandmother Myocardial infarction Cancer Brother Pancreatic cancer Sister Uterine cancer Social History Household Members: Family Housing: House Are you a primary healthcare administration internship to a significant other at home: No Do you presently have visiting nurse or other home services: No Alcohol intake: never Patient Tobacco Use Status: Former Tobacco user Tobacco use type: Cigarette e-Cigarette/Vaping Use: Never Used Second Hand Smoke Exposure: No service: No Current occupational status: unemployed and disabled Sexual orientation: Straight/Heterosexual Gender identity: Female Cognitive needs: No Hearing needs: No Vision needs: Yes (glasses) Female Reproductive History Menstrual Age of Menarche: 10 Results AMB Urinalysis, Automated UA Leukoctes 500 Denilson/uL Last Edit by PEGGY Champagne on 09/28/24 13:43 UA Nitrite Negative Last Edit by PEGGY Champagne on 09/28/24 13:43 UA Urobilinogen 0.2 mg/dL Last Edit by PEGGY Champagne on 09/28/24 13:43 UA Protein 0 mg/dL Last Edit by PEGGY Champagne on 09/28/24 13:43 UA pH 6.0 Last Edit by PEGGY Champagne on 09/28/24 13:43 UA Blood 80 Brady/uL Last Edit by PEGGY Champagne on 09/28/24 13:43 UA Specific [place] 1.015 Last Edit by PEGGY Champagne on 09/28/24 13:43 UA Ketone Negative Last Edit by PEGGY Champagne on 09/28/24 13:43 UA Bilirubin 0 mg/dL Last Edit by PEGGY Champagne on 09/28/24 13:43 UA Glucose 0 mg/dL Last Edit by PEGGY Champagne on 09/28/24 13:43 Results Reviewed Results Reviewed: Laboratory Last Values Urine pH (Auto) 6.0 09/28/24 13:42 Specific [place] (Auto) 1.015 09/28/24 13:42 Urine Protein (Auto) 0 mg/dL 09/28/24 13:42 Glucose (UA)(Auto) 0 mg/dL 09/28/24 13:42 Urine Ketones (Auto) Negative 09/28/24 13:42 Urine Blood (Auto) 80 Brady/uL 09/28/24 13:42 Urine Nitrite (Auto) Negative 09/28/24 13:42 Urine Bilirubin (Auto) 0 mg/dL 09/28/24 13:42 Urine Urobilinogen (Auto) 0.2 mg/dL 09/28/24 13:42 Leukocyte Esterase (Auto) 500 Denilson/uL 09/28/24 13:42 Date of Service: 11/08/23 EXAMINATION: CT ABDOMEN AND PELVIS WITH CONTRAST CLINICAL INFORMATION: Generalized abdominal pain COMPARISON: 08/28/2023 TECHNIQUE: Multidetector volumetric images were obtained from the superior aspect of the liver through the pubic symphysis following administration 85 mL of Omnipaque 350 intravenous contrast. Sagittal and coronal reformatted images were obtained on the technologist's workstation. Oral contrast: No This CT examination was performed using dose optimization techniques as appropriate, variously including the following: *Automated exposure control *Adjustment of mA and/or kV according to patient size (this includes techniques or standardized protocols for targeted exams where dose is matched to indication/reason for exam; i.e. extremities or head) *Use of iterative reconstruction technique DLP: 618 mGy-cm FINDINGS: LUNG BASES: The visualized lung bases are unremarkable. LIVER, GALLBLADDER, AND BILIARY TREE: Coarse calcific aeration anterolaterally right lobe. Mild prominence of the biliary tree similar. No choledocholithiasis. No discrete lesion. Clips consistent with cholecystectomy. PANCREAS: Unremarkable. SPLEEN: Splenule noted once again. ADRENAL GLANDS: Unremarkable. KIDNEYS AND URETERS: Within the right midpole kidney posteriorly, there is a approximately 2 cm decreased ill-defined attenuation is since baseline. The right urinary collecting system demonstrates mild hyperenhancement especially proximally. No stones or hydronephrosis. No left-sided abnormality. No perinephric abnormality. BLADDER: Unremarkable. GASTROINTESTINAL TRACT: There is evidence for a Miguel-en-Y gastric bypass surgical changes. At the jejunojejunal anastomosis, there appears to be intussusception causing mild dilatation of the proximal Miguel-en-Y loop. Polyps measure up to 3.8 cm. Distal bowel loops are decompressed. There are no fluid collections or inflammatory changes seen. ABDOMINAL WALL: No significant hernia is appreciated. LYMPH NODES: Normal. VASCULAR: Unremarkable. PELVIC VISCERA: Unremarkable. OSSEOUS STRUCTURES: Unremarkable. IMPRESSION: Intussusception at the jejunojejunal anastomosis with mild dilatation of the proximal Miguel-en-Y loop. Please see meehan images. Focal abnormality right kidney suspicious for focal pyelonephritis with possible ureteritis as above. Follow-up recommended to ensure resolution and to exclude any new abnormality. Assessment & Plan Assessment & Plan (1) Microscopic hematuria: Comment: History of interstitial cystitis Code(s): R31.29 - Other microscopic hematuria Category: Medical (2) Frequent UTI: Code(s): N39.0 - Urinary tract infection, site not specified Category: Medical (3) Interstitial cystitis: Code(s): N30.10 - Interstitial cystitis (chronic) without hematuria Category: Medical (4) Bladder pain: Code(s): R39.89 - Other symptoms and signs involving the genitourinary system Category: Medical Plan Cont Bladder instillations, vaginal estrogen therapy Gabapentin Orders: Orders AMB Urinalysis Automated 09/28/24 Z13.9 - Encounter for screening, unspecified Medications: New gabapentin 300 mg PO BID 60 caps 3RF bladder pain Discontinued gabapentin Discontinued Reason: Doctor's Order 100 mg PO BID 60 caps 2RF Coding Level of Care Code Est Pt Level 4 (38793) Diagnoses Microscopic hematuria R31.29 Frequent UTI N39.0 Interstitial cystitis N30.10 Bladder pain R39.89
== END 2024-09-28 14:14 | disposition home or self-care (01) ==
PROVIDERS: PCP Internal Medicine; Visit Provider Urology
DX: R31.29 Other microscopic hematuria (principal); N39.0 Urinary tract infection, site not specified; N30.10 Interstitial cystitis (chronic) without hematuria; R39.89 Other symptoms and signs involving the genitourinary system
CPT/HCPCS: 99214

== ENCOUNTER → 2024-09-28 13:24 | Outpatient (BNVA) | payer OTHER, SELFPAY | PROVIDERS: PCP Internal Medicine; Visit Provider Urology | DX: R31.29 Other microscopic hematuria (principal); N30.10 Interstitial cystitis (chronic) without hematuria; R39.89 Other symptoms and signs involving the genitourinary system | CPT/HCPCS: 81003; 99212 ==

== ENCOUNTER 2024-10-06 10:18 | Outpatient (AMB) | payer OTHER, SELFPAY ==
--- NOTE | 2024-10-06 10:37 | AM.OFFVISNUR ---
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 UA run- unremarkable. Patient reports improvement in symptoms from IC instillations. Patient to make future IC appointments at checkout 14fr straight cath used to instill: 10mls bupivicaine 0.50% 2mls heparin 10,000 units 10 mls lidocaine 2% lidocaine urojet 1ml solumedrol 87251-Pydybcvnhl of Bladder 00337-Xxlbqj Bladder Catheter Procedure code (CPT) selection complete Results AMB Urinalysis, Automated UA Leukoctes 70 Denilson/uL Last Edit by Leonides Mims LPN on 10/06/24 10:45 UA Nitrite Negative Last Edit by Leonides Mims LPN on 10/06/24 10:45 UA Urobilinogen 0.2 mg/dL Last Edit by Leonides Mims LPN on 10/06/24 10:45 UA Protein 0 mg/dL Last Edit by Leonides Mims LPN on 10/06/24 10:45 UA pH 6.0 Last Edit by Leonides Mims LPN on 10/06/24 10:45 UA Blood 10 Brady/uL Last Edit by Leonides Mims LPN on 10/06/24 10:45 UA Specific [place] 1.015 Last Edit by Leonides Mims LPN on 10/06/24 10:45 UA Ketone Negative Last Edit by Leonides Mims LPN on 10/06/24 10:45 UA Bilirubin 0 mg/dL Last Edit by Leonides Mims LPN on 10/06/24 10:45 UA Glucose 0 mg/dL Last Edit by Leonides Mims LPN on 10/06/24 10:45 Assessment & Plan Assessment & Plan Orders: Orders AMB Bladder/Catheter Procedure Today N30.10 - Interstitial cystitis (chronic) without hematuria, N39.41 - Urge incontinence, R31.9 - Hematuria, unspecified AMB Urinalysis Automated Today N30.10 - Interstitial cystitis (chronic) without hematuria, N39.41 - Urge incontinence, R31.9 - Hematuria, unspecified
== END 2024-10-06 10:50 | disposition home or self-care (01) ==
PROVIDERS: PCP Internal Medicine; Visit Provider Urology
DX: R31.9 Hematuria, unspecified (principal); N39.41 Urge incontinence; N30.10 Interstitial cystitis (chronic) without hematuria

== ENCOUNTER → 2024-10-06 10:18 | Outpatient (BNVA) | payer OTHER, SELFPAY | PROVIDERS: PCP Internal Medicine; Visit Provider Urology | DX: N30.10 Interstitial cystitis (chronic) without hematuria (principal); N39.41 Urge incontinence; R31.9 Hematuria, unspecified | CPT/HCPCS: 51700; 51701; 81003 ==

== ENCOUNTER 2024-10-07 09:50 | Outpatient (REF) | payer OTHER, SELFPAY ==
--- NOTE | ~2024-10-07 | MM_ITS ---
EXAMINATION: MM SCREENING DIGITAL BREAST TOMOSYNTHESIS, BILATERAL CLINICAL INFORMATION: Screening. Asymptomatic. COMPARISON: Mammography: Comparison is made with available priors TECHNIQUE: Digital breast mammography with tomosynthesis is performed in both the craniocaudal and mediolateral oblique views along with computer-aided detection (CAD). FINDINGS: There are scattered areas of fibroglandular density (ACR BI-RADS breast composition Category b). Right post surgical changes are stable. There are no significant masses, abnormal calcifications, or other abnormalities. MM/MM tomosynthesis screening BI IMPRESSION: No mammographic evidence of malignancy. ASSESSMENT: BI-RADS BI-RADS 2 - Benign Findings RECOMMENDATION: Routine annual mammography screening. 1 year F/U This examination should not preclude the clinical evaluation of a suspicious palpable abnormality. This patient's information was entered into a reminder system with a target due date for their next mammogram. Electronically signed by: Bambi Hinojosa DO 10/14/2024 02:51 PM REAGAN
== END 2024-10-07 09:51 | disposition home or self-care (01) ==
LOC: HO.MAMMO 09:50
PROVIDERS: PCP Internal Medicine; Visit Provider Internal Medicine
DX: Z12.31 Encounter for screening mammogram for malignant neoplasm of breast (principal)
CPT/HCPCS: 77063; 77067

== ENCOUNTER → 2024-10-07 10:00 | Outpatient (BNV) | payer OTHER, SELFPAY | PROVIDERS: PCP Internal Medicine; Visit Provider Internal Medicine | DX: Z12.31 Encounter for screening mammogram for malignant neoplasm of breast (principal) | CPT/HCPCS: 77063; 77067 ==

== ENCOUNTER 2024-10-19 14:07 | Outpatient (REF) | payer MEDICARE, SELFPAY ==
[2024-10-20 05:37] LABS: CT PCR NOT DETECTED (Not Detect.); NG PCR NOT DETECTED (Not Detect.)
== END 2024-10-19 14:08 | disposition home or self-care (01) ==
LOC: HO.LNP 14:07
PROVIDERS: PCP Internal Medicine; Visit Provider Obstetrics & Gynecology
DX: R10.2 Pelvic and perineal pain (principal); R31.29 Other microscopic hematuria
CPT/HCPCS: 87086; 87491; 87591; 99212

== ENCOUNTER 2024-10-19 14:07 | Outpatient (AMB) | payer MEDICARE, SELFPAY ==
--- NOTE | 2024-10-19 14:11 | A.OFFVIS_ITS ---
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 It's intermittent in nature lasting few seconds and occurs 3x/day. it is associated with urinary frequency, dysuria, no vaginal discharge or bleeding no n/v, no feverishness. The patient has a long-term history of interstitial cystitis be managed by Urology [facility] Medical History Enlarged thoracic aorta Intussusception Hepatomegaly Needle exposure Microscopic hematuria Murmur Frequent UTI Iron deficiency anemia Dysuria Labile blood glucose Anemia Dyslipidemia Pernicious anemia Pre-op examination Cervicalgia of djifmsay-oitscwm-blfmt region Vitamin D deficiency Osteoporosis 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 Asthma Paget's disease Fibromyalgia Nontoxic multinodular goiter Osteoarthritis HTN (hypertension) Surgical History History of excision of mass (08/21/23) History of removal of laparoscopic gastric banding device History of cystoscopy History of lobectomy of thyroid Mass of right parotid gland H/O laparoscopic adjustable gastric banding Hx of lithotripsy History of dilation and curettage History of delivery Hx of tonsillectomy Hx of gastric bypass Family History Mother Diabetes HTN (hypertension) Father Pancreatic cancer Diabetes HTN (hypertension) Maternal Grandmother Myocardial infarction Cancer Brother Pancreatic cancer Sister Uterine cancer Social History Household Members: Family Housing: House Are you a primary day care center director to a significant other at home: No Do you presently have visiting nurse or other home services: No Alcohol intake: never Patient Tobacco Use Status: Former Tobacco user Tobacco use type: Cigarette e-Cigarette/Vaping Use: Never Used Second Hand Smoke Exposure: No service: No Current occupational status: unemployed and disabled Sexual orientation: Straight/Heterosexual Gender identity: Female Cognitive needs: No Hearing needs: No Vision needs: Yes (glasses) Female Reproductive History Menstrual Age of Menarche: 10 Review of Systems Const All systems reviewed & are unremarkable except as noted in HPI and below Physical Exam General: Yes no CVA tenderness External Female Exam: normal external appearance and normal appearance of the urethra Speculum Exam - Vagina: normal appearance of the vagina, normal palpation, no lesions and no masses Speculum Exam - Cervix: normal appearance of the cervix, normal palpation, no lesions, no masses and nontender Bimanual exam- vagina & uterus: normal bimanual exam, normal palpation, uterine size normal, normal palpation, uterine shape normal, No Cervical tenderness present and non-tender Bimanual Exam- Adnexa, other: normal adnexae Back/Spine/Pelvis Back: no CVA tenderness Assessment & Plan Assessment & Plan (1) Pelvic pain: Code(s): R10.2 - Pelvic and perineal pain Category: Medical Plan: Urine dip done in the office was negative. GC and chlamydia taken and pelvic ultrasound ordered. Discussed with the patient the differential diagnosis of pelvic pain including but not limited to adnexal, uterine masses, pelvic infections (PID), GI the (Irritable bowel syndrome, diverticulitis, others), musculoskeletal, myofascial pain abdominal wall , adhesions, endometriosis, psychological and others causes. Will check results and treat accordingly. All questions answered, the patient verbalized understanding. Instructed the patient to schedule follow-up appointment in 2 weeks (2) Microscopic hematuria: Comment: History of interstitial cystitis Code(s): R31.29 - Other microscopic hematuria Category: Medical Plan: Urine dip showed microscopic hematuria, urine culture sent. Will repeat urine dip in 2 weeks. Discussed with the patient the possible causes of microscopic hematuria including but not limited to: interstitial cystitis, polyps, stones, masses, urethral inflammatory processes and others. If Urine Culture is negative and repeat urine dip in 2 weeks shows persistent microscopic hematuria, will proceed urology referral. Instructions given the patient to schedule a 2 week urine dip follow-up appointment. All questions answered and the patient verbalized understanding. Orders: Orders US pelvic and transvaginal Today R10.2 - Pelvic and perineal pain Coding Level of Care Code Est Pt Level 3 (04296) Diagnoses Pelvic pain R10.2 Microscopic hematuria R31.29
== END 2024-10-19 15:49 | disposition home or self-care (01) ==
LOC: HO.HWS 14:07
PROVIDERS: PCP Internal Medicine; Visit Provider Obstetrics & Gynecology
DX: R10.2 Pelvic and perineal pain (principal); R31.29 Other microscopic hematuria
CPT/HCPCS: 99213

== ENCOUNTER 2024-11-23 15:00 | Outpatient (REF) | payer OTHER, SELFPAY ==
--- NOTE | ~2024-11-23 | XR_ITS ---
CLINICAL HISTORY: M54.50 - Low back pain, unspecified 3 views lumbar spine Comparison: None Findings: Normal vertebral body alignment. No acute fractures or dislocation. Multilevel disc space narrowing and endplate osteophyte formation, as well as facet hypertrophy. IMPRESSION: No acute findings. This document has been electronically signed by: Ulises Palma MD on 11/24/2024 13:51:58
--- NOTE | ~2024-11-23 | XR_ITS ---
CLINICAL HISTORY: M54.2 - Cervicalgia 6 views cervical spine Comparison: None Findings: Normal vertebral body alignment. No acute fractures or dislocation. Multilevel disc space narrowing and endplate osteophyte formation, as well as facet hypertrophy. No prevertebral soft tissue swelling. IMPRESSION: No acute findings. This document has been electronically signed by: Ulises Palma MD on 11/24/2024 13:49:52
--- NOTE | ~2024-11-23 | XR_ITS ---
CLINICAL HISTORY: M54.6 - Pain in thoracic spine 2 views thoracic spine Comparison: None Findings: Normal vertebral body alignment. No acute fractures or dislocation. Multilevel disc space narrowing and endplate osteophyte formation, as well as facet hypertrophy. IMPRESSION: No acute findings. This document has been electronically signed by: Ulises Palma MD on 11/24/2024 13:51:35
== END 2024-11-23 15:01 | disposition home or self-care (01) ==
LOC: HO.XRAY 15:00
PROVIDERS: PCP Internal Medicine; Visit Provider Internal Medicine
DX: M54.6 Pain in thoracic spine (principal); M54.2 Cervicalgia; M54.50 Low back pain, unspecified
CPT/HCPCS: 72040; 72070; 72100

== ENCOUNTER → 2024-11-23 15:05 | Outpatient (BNV) | payer OTHER, SELFPAY | PROVIDERS: PCP Internal Medicine; Visit Provider Radiology Diagnostic Radiology | DX: M54.2 Cervicalgia (principal); M54.6 Pain in thoracic spine; M54.50 Low back pain, unspecified | CPT/HCPCS: 72040; 72070; 72100 ==

== ENCOUNTER 2024-12-01 10:15 | Outpatient (AMB) | payer OTHER, SELFPAY ==
--- NOTE | 2024-12-01 10:19 | AM.OFFVISNUR ---
Intake Visit Reasons: IC instillation Allergies phentermine Allergy (Intermediate, Verified 09/28/24 13:31) Palpitations Office Procedures Bladder/Catheter Procedure Details: Patient presents to office for IC instillation #5. Patient reports improvement in symptoms from IC instillations but continues to have UTI symptoms mildly. UA run per patient request- UA not indicative of infection. Patient already scheduled next instillation. 14fr straight cath used to instill: 10mls bupivicaine 0.50% 2mls heparin 10,000 units 10 mls lidocaine 2% lidocaine urojet 1ml solumedrol 61111-Kitrzjugxg of Bladder 54733-Eklsdf Bladder Catheter Procedure code (CPT) selection complete Results AMB Urinalysis, Automated UA Leukoctes 0 Denilson/uL Last Edit by Leonides Mims LPN on 12/01/24 10:38 UA Nitrite Negative Last Edit by Leonides Mims LPN on 12/01/24 10:38 UA Urobilinogen 1 mg/dL Last Edit by Leonides Mims LPN on 12/01/24 10:38 UA Protein 15 mg/dL Last Edit by Leonides Mims LPN on 12/01/24 10:38 UA pH 6.0 Last Edit by Leonides Mims LPN on 12/01/24 10:38 UA Blood 10 Brady/uL Last Edit by Leonides Mims LPN on 12/01/24 10:38 UA Specific [place] 1.015 Last Edit by Leonides Mims LPN on 12/01/24 10:38 UA Ketone Negative Last Edit by Leonides Mims LPN on 12/01/24 10:38 UA Bilirubin 1 mg/dL Last Edit by Leonides Mims LPN on 12/01/24 10:38 UA Glucose 0 mg/dL Last Edit by Leonides Mims LPN on 12/01/24 10:38 Assessment & Plan Assessment & Plan Orders: Orders AMB Bladder/Catheter Procedure Today N30.10 - Interstitial cystitis (chronic) without hematuria, N39.41 - Urge incontinence, R10.2 - Pelvic and perineal pain, R30.0 - Dysuria AMB Urinalysis Automated Today N30.10 - Interstitial cystitis (chronic) without hematuria, R10.2 - Pelvic and perineal pain
== END 2024-12-01 10:46 | disposition home or self-care (01) ==
LOC: HO.HUSH 10:15
PROVIDERS: PCP Internal Medicine; Visit Provider Urology
DX: R10.2 Pelvic and perineal pain (principal); N30.10 Interstitial cystitis (chronic) without hematuria

== ENCOUNTER → 2024-12-01 10:15 | Outpatient (BNVA) | payer OTHER, SELFPAY | PROVIDERS: PCP Internal Medicine; Visit Provider Urology | DX: N30.10 Interstitial cystitis (chronic) without hematuria (principal); R10.2 Pelvic and perineal pain; R30.0 Dysuria; Z46.6 Encounter for fitting and adjustment of urinary device | CPT/HCPCS: 51700; 51701; 81003 ==

== ENCOUNTER 2024-12-02 13:56 | Outpatient (REF) | payer OTHER, SELFPAY ==
--- NOTE | ~2024-12-02 | US_ITS ---
EXAMINATION: US PELVIS TRANSABDOMINAL AND TRANSVAGINAL HISTORY: R10.2 - Pelvic and perineal pain COMPARISON: Comparison is made with the prior examination dated 09/07/2022. TECHNIQUE: Transabdominal and endovaginal real-time 2D rasmussen-scale ultrasound was performed. FINDINGS: Uterus: The uterus is normal in size, measuring 5.0 x 2.7 x 4.1 cm. The myometrial echotexture is heterogeneous. There are multiple hyperechoic foci within the myometrium, suggestive of calcified fibroids. Endometrium: The endometrial stripe measures 2 mm in thickness. Right ovary: The right ovary is not identified. Left ovary: The left ovary is not identified. Pelvic fluid: none. US/US pelvic and transvaginal IMPRESSION: Heterogeneous myometrial echotexture with multiple hyperechoic foci suggestive of calcified fibroids. The ovaries are not identified. Electronically signed by: Maxx Seymour MD 12/03/2024 07:35 AM EST
== END 2024-12-02 13:57 | disposition home or self-care (01) ==
LOC: HO.US 13:56
PROVIDERS: PCP Internal Medicine; Visit Provider Obstetrics & Gynecology
DX: R10.2 Pelvic and perineal pain (principal)
CPT/HCPCS: 76830; 76856

== ENCOUNTER → 2024-12-02 13:58 | Outpatient (BNV) | payer OTHER, SELFPAY | PROVIDERS: PCP Internal Medicine; Visit Provider Radiology Diagnostic Radiology | DX: D25.9 Leiomyoma of uterus, unspecified (principal) | CPT/HCPCS: 76830; 76856 ==

== ENCOUNTER 2024-12-14 10:28 | Outpatient (AMB) | payer OTHER, SELFPAY ==
--- NOTE | 2024-12-14 10:33 | A.OFFVIS_ITS ---
Vital Signs 12/14/24 10:34 Height 5 ft 1 in Weight 154 lb 5.177 oz BMI 29.2 BP 127/65 Blood Pressure Location Lt brachial Position Sitting Pulse 60 Intake Visit Reasons: Abdominal pain Intake Note: Patient in office today for abdominal pain. CC: Patient c/o abdominal pain, acid reflux, and heartburn. Per patient she has been having blood in her urine. Per patient she underwent hernia surgery last Saturday. Patient states that she would like to be scheduled to have colonoscopy and EGD done. Business Records Manager Required: Yes Accompanied by: Self / Same As Patient Allergies phentermine Allergy (Intermediate, Verified 12/14/24 11:00) Palpitations HPI HPI Abdominal pain: Details: 63 y/o F w/ , HTN, HLD,hx of gastric lap band with conversion to RYGB, hx of nephrolithiasis with lithotripsy 2019, mild intermittent asthma, fibromyalgia, osteoarthritis, Paget's disease, and parotid gland mass who I am seeing for f/u RECAP: Recent admission for acute pyelonephritis, sepsis transfer to [place] in October- for jejuno jejunal intussusception also has hx of ANEUDY and seeing Dr. Georges HGb has been chronically stable at around 10 g/dl EGD/COLO: 04/10 Endoscopy Findings: esophagitis retained suture Colonoscopy Findings: colon polyp internal hemorrhoids Tubular adenoma--path IMAGING: CT 11/09 hepatomegaly and prominent CBD ?jejuno jejunal intussussception MRCP 06/10-- nml INTERIM: she has back pain mid back going into lower back--seeing pain mx she has malaise she had umbilical hernia repair last week she has chest pain, like scratching and burning she feels the acid reflux coming up and down, sour taste she has not been opening capsule and mixing with apple sauce EXAM: GENERAL: The patient is well developed and nontoxic. VITAL SIGNS:see workflow HEENT: Nonicteric sclerae, PERRLA, EOMI. Oropharynx clear. Moist mucous membranes. Conjunctivae appear well perfused. No thyroid mass. CHEST: Chest wall is nontender. HEART: Regular rate and rhythm without murmurs. LUNGS: Clear to auscultation bilaterally. ABDOMEN: Soft, positive bowel sounds, generalized tenderness--scar around umbilicus, no organomegaly.no flank tenderness SKIN: No rash, no excessive bruising, petechiae, or purpura. NEUROLOGIC: Cranial nerves II-XII intact without motor/sensory deficit. psych: nml affect MS: tender lower back A/P: 1/ ongoing reflux, maybe not getting benefit of PPI, 2/ chronic anemia maybe due to hematuria and malabsorption--last UA was good, seeing urology for f/u PLAN: 1/ repeat EGD and colo--due 2/ advised on how to take PPI with open capsule 3/ recheck UA PFSH Medical History Enlarged thoracic aorta Intussusception Hepatomegaly Needle exposure Microscopic hematuria Murmur Frequent UTI Iron deficiency anemia Dysuria Labile blood glucose Anemia Dyslipidemia Pernicious anemia Pre-op examination Cervicalgia of wdnufenl-awphsvw-acqnw region Vitamin D deficiency Osteoporosis 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 Asthma Paget's disease Fibromyalgia Nontoxic multinodular goiter Osteoarthritis HTN (hypertension) Surgical History History of excision of mass (08/21/23) History of removal of laparoscopic gastric banding device History of cystoscopy History of lobectomy of thyroid Mass of right parotid gland H/O laparoscopic adjustable gastric banding Hx of lithotripsy History of dilation and curettage History of delivery Hx of tonsillectomy Hx of gastric bypass Family History Mother Diabetes HTN (hypertension) Father Pancreatic cancer Diabetes HTN (hypertension) Maternal Grandmother Myocardial infarction Cancer Brother Pancreatic cancer Sister Uterine cancer Social History Household Members: Family Housing: House Are you a primary critical care registered nurse to a significant other at home: No Do you presently have visiting nurse or other home services: No Alcohol intake: never Patient Tobacco Use Status: Former Tobacco user Tobacco use type: Cigarette e-Cigarette/Vaping Use: Never Used Second Hand Smoke Exposure: No service: No Current occupational status: unemployed and disabled Sexual orientation: Straight/Heterosexual Gender identity: Female Cognitive needs: No Hearing needs: No Vision needs: Yes (glasses) Female Reproductive History Menstrual Age of Menarche: 10 Physical Exam Vital Signs: Last Vital Signs Pulse 60 01/27/25 10:34 BP 127/65 12/14/24 10:34 BMI result Body Mass Index 29.2 Assessment & Plan Assessment & Plan (1) GERD (gastroesophageal reflux disease): Code(s): K21.9 - Gastro-esophageal reflux disease without esophagitis Category: Medical Plan: as above Orders: Orders UA CC w/rflx Micro + Cult Today R30.0 - Dysuria Medications: New sodium,potassium,mag sulfates 17.5-3.13-1.6 gram (Suprep Bowel Prep Kit) DILUTE; drink 1/2 at 6-8 pm and half at 11 PM- 1AM 354 mL 0RF Refilled esomeprazole magnesium 40 mg PO DAILY 30 caps 1RF Coding Level of Care Code Est Pt Level 4 (20741) Diagnoses GERD (gastroesophageal reflux disease) K21.9
[2024-12-14 10:34] VITALS: BP 127/65; PULSE 60; BMI 29.2
--- OUTSIDE RECORDS SUMMARY | 2024-12-14 15:11 | XMS_ITS | Clinical Summary ---
Author Organization [facility] Address [address] [place] [address] Phone Care Team Providers Care Business Intelligence Consultant Name Role Phone Mary Jo Conteh MD Primary Care Provider [phone] Allergies No known active allergies Medications Medication Sig Dispensed Refills Start Date End Date Status albuterol HFA (Ventolin HFA) 90 mcg/actuation inhaler Active AMLODIPINE BESYLATE, BULK, MISC Take 20 mg by mouth 1 (one) time each day. Active cholecalciferol (VITAMIN D-3) 1,250 mcg (50,000 unit) capsule 03/27/2024 Active mo/Non-Adher Bndg/petrolatum (GAUZE PADS AND DRESSINGS TOP) 2 Units by Does not apply route daily for 15 doses. Apply as many gauzes as necessary to keep the area dry. 02/08/2023 Active METOPROLOL SUCCINATE ORAL Take 25 mg by mouth 1 (one) time each day. Active ascorbic vvkh-dbuzeocn-olo 1,000 mg powder effervescent in packet Take by mouth. Active nystatin (MYCOSTATIN) cream Apply 1 Application topically 1 (one) time each day. 06/25/2018 Active phentermine 15 mg capsule Take 1 Capsule by mouth every morning for 30 days. 03/24/2024 Active acetaminophen (TYLENOL) 500 mg tablet Take 2 tablets (1,000 mg total) by mouth every 6 (six) hours if needed for mild pain for up to 30 doses. 30 tablet 12/09/2024 Active oxyCODONE (ROXICODONE) 5 mg immediate release tablet Take 1 tablet (5 mg total) by mouth every 6 (six) hours if needed for severe pain. Max Daily Amount: 20 mg 15 tablet 12/09/2024 Active docusate sodium (COLACE) 100 mg capsule Take 1 capsule (100 mg total) by mouth 2 (two) times a day if needed for constipation for up to 10 days. 20 each 12/09/2024 12/19/2024 Active Active Problems Problem Noted Date Diagnosed Date Facial rhytids 10/03/2020 Calculus of gallbladder with chronic cholecystitis without obstruction 09/14/2020 Asthma 05/29/2018 Hypercholesteremia 05/29/2018 Obesity, Class I, BMI 30-34.9 05/29/2018 Resolved Problems Problem Noted Date Diagnosed Date Resolved Date Umbilical hernia 11/19/2024 12/09/2024 Encounters Date Type Department Care Team Description 12/09/2024 9:30 AM EST - 12/09/2024 11:30 AM EST Surgery [facility] Main OR [address] [place] [phone] Griffin Loya MD OPEN EXPLORATION UMBILICUS W/REPAIR OF RECURRENT UMBILICAL HERNIA [[id number] (CPT??)] 12/09/2024 9:22 AM EST Anesthesia Event [facility] OR [address] [place] [phone] Tomas Collazo MD Hayes, Brett L, [facility] 12/09/2024 8:08 AM EST - 12/09/2024 1:03 PM EST Hospital Encounter [facility] OR [address] [place] [phone] Griffin Loya MD Discharge Disposition: Home or Self Care 12/02/2024 12:07 PM EST - 12/02/2024 11:59 PM EST Hospital Encounter [facility] Xray [address] [place] [address] Discharge Disposition: Home or Self Care 12/01/2024 10:30 AM EST Pre-Admission Testing [facility] Pre-Admission Testing [address] [place] [phone] Umbilical hernia without obstruction and without gangrene 11/19/2024 2:15 PM EST Office Visit Bariatric Surgery [facility] [address] [place] [address] Griffin Loya MD Periumbilical abdominal pain (Primary Dx) 10/14/2024 6:35 PM EST - 10/14/2024 9:55 PM EST Emergency [facility] Emergency [address] [place] [phone] Micah John MD Generalized abdominal pain (Primary Dx) Discharge Disposition: Home or Self Care from Last 3 Months Surgical History Surgery Date Site/Laterality Comments LAPAROSCOPIC GASTRIC BANDING 11/2014 PROCEDURE: LAP ADJUSTABLE GASTRIC BAND LAPAROSCOPIC GASTRIC BANDING REMOVAL 1-2 YRS AGO PER PT Medical History Medical History Date Comments History of laparoscopic adju stable gastric banding 05/29/2018 DX:History of laparoscopic adjustable gastric banding; COMMENT: 11/2014 History of Helicobacter pylori infection 018 DX:History of Helicobacter pylori infection; COMMENT: Diagnosed at pre-op Hypercholesteremia 05/29/2018 DX:Hyperchole steremia Asthma 05/29/2018 DX:Asthma Obesity, Class I, BMI 30-34.9 05/29/2018 DX :Obesity, Class I, BMI 30-34.9 History of gastric surgery DX:Hi story of gastric surgery Gastritis DX:Gastritis Hypertension Pneumonia Disease of thyroid gland GERD (gastroesophageal reflux disease) Arthritis Joint pain Fibromyalgia Family History Medical History Relation Name Comments Diabetes Mother Hyperlipidemia Mother Hypertension Mother Relation Name Status Comments Father Mother Alive Social History Tobacco Use Types Packs/Day Years Used Date Smoking Tobacco: Former Cigarettes Smokeless Tobacco: Never Tobacco Cessation:Counseling Given: Not Answered Alcohol Use Standard Drinks/Week Comments No 0 (1 standard drink = 0.6 oz pur e alcohol) Sex and Gender Information Value Date Recorded Sex Assigned at Female 10/14/2024 7:16 PM EST Gender Identity Female 10/14/2024 7:16 PM EST Sexual Orientation Straight 10/14/2024 7: 16 PM EST Job Start Date Occupation Industry Not on file Not on file Not on file Obstetrics History Last Filed Vital Signs Vital Sign Reading Time Taken Comments Blood Pressure 130/69 12/09/2024 11:29 AM EST Pulse 59 12/09/2024 11:29 AM EST Temperature 36.4 ??C (97.5 ??F) 12/09/2024 11:[address] Respiratory Rate 16 12/09/2024 11:29 AM EST Oxygen Saturation 100% 12/09/2024 11:29 AM EST Inhaled Oxygen Concentration - - Weight 72.1 kg (159 lb) 11/19/2024 2:19 PM EST Height 152.4 cm (5') 11/19/2024 2:19 PM EST Body Mass Index 31.05 11/19/2024 2:19 PM EST Plan of Treatment Upcoming Encounters Date Type Department Care Team (Late st Contact Info) Description 12/16/2024 9:20 AM EST Office Visit Gastroenterology - [place] 175 [facility] [address] [facility] [address] [place] [phone] Dave Leblanc PA 175 [facility] [address] [place] [address] 12/24/2024 11:30 AM EST Office Visit Bariatric Surgery - [place] 175 [facility] [address] [place] [phone] Surekha Don PA [address] [facility] [address] [place] [address] Health Maintenance Due Date Last Done Comments Breast Cancer Screening 1960 RSV Immunization Patients 60+ Years Old (1 - Risk 60-74 years 1-dose series) 2018 DTaP,Tdap,and Td Vaccines (2 - Tdap) 12/31/2018 12/31/2008 Zoster Vaccines (2 of 2) 09/22/2020 07/28/2020 Cholesterol Screening (Lipid Panel) 10/21/2022 Colorectal Cancer Screening: Colonoscopy 10/21/2022 Depression Screening 10/21/2022 Hepatitis C Screening 10/21/2022 Medicare Annual Wellness Visit 10/21/2022 Osteoporosis Screening (Bone Density Screening) 10/21/2022 Social Influencers of Health Screening 10/21/2022 Falls Risk Assessment 2023 COVID-19 Vaccine ( season) 2024 10/18/2022, 11/01/2021, 03/10/2021, Additional history exists Hypertension/CHF/CAD Annual BMP Blood Test 12/02/2025 12/02/2024, 10/14/2024 Influenza Vaccine Completed 07/30/2024, , 08/14/2022, Additional history exists Pneumococcal Vaccine: 65+ Years Completed 09/14/2024, 09/28/2023, 07/28/2020, Additional history exists HIB Vaccines Aged Out No longer eligi ble based on patient's age to complete this topic HPV Vaccines Aged Out No longer eligi ble based on patient's age to complete this topic Hepatitis A Vaccines Aged Out No long er eligible based on patient's age to complete this topic Hepatitis B Vaccines Aged Out No long er eligible based on patient's age to complete this topic IPV Vaccines Aged Out No longer eligi ble based on patient's age to complete this topic MMR Vaccines Aged Out No longer eligi ble based on patient's age to complete this topic Meningococcal ACWY Vaccine Aged Out N o longer eligible based on patient's age to complete this topic RSV Immunization Patients Under 20 months Aged Out No longer eligible based on patient's age to complete this topic Varicella Vaccines Aged Out No longer eligible based on patient's age to complete this topic Medical Devices Implanted Type Area Ic Design Engineer Device Identifier Shelf Expiration Date Model / Serial / Lot Mesh Ventralex St 1.7in Sm [place] W/Strap - Sn/A - [id number] Implanted:Qty: 1 on 12/09/2024 by Griffin Loya MD at [facility] Surgical Mesh Sling Implants N/A: Umbilical CR BARD - DAVOL DIV [id number] / N/A / N/A Procedures Procedure Name Priority Date/Time Associated Diagnosis Comments TH AN ENDOTRACHEAL(NO CHARGE) Routine 12/09/2024 9:36 AM EST MN REPR ANT ABD HERNIA(S) ANY APPR RECUR INCL IMPL < 3 CM INCARCERATED/STRG 12/09/2024 9:21 AM EST Umbilical hernia Case Notes IN PT Special Needs ADMISSION STATUS UPDATED TO INPT VIA PHONE W/ KENZIE PER INSURANCE WR 12/08 TYPE AND SCREEN Routine 12/09/2024 9:20 AM EST XR CHEST 2 VIEWS Routine 12/02/2024 12:1 2 PM EST Umbilical hernia without obstruction and without gangrene ECG 12-LEAD Routine 12/02/2024 11:26 AM EST Umbilical hernia without obstruction and without gangrene REBOLLEDO URINE CULTURE TUBE Routine 12/02/2024 11:07 AM EST Umbilical hernia without obstruction and without gangrene URINALYSIS WITH REFLEX MICROSCOPIC AND CULTURE Routine 12/02/2024 11:07 AM EST Umbilical hernia without obstruction and without gangrene CBC WITH AUTO DIFFERENTIAL Routine 12/02/2024 11:07 AM EST Umbilical hernia without obstruction and without gangrene URINALYSIS WITH REFLEX MICROSCOPIC AND CULTURE Routine 12/02/2024 11:07 AM EST Umbilical hernia without obstruction and without gangrene TYPE AND SCREEN Routine 12/02/2024 11:07 AM EST Umbilical hernia without obstruction and without gangrene MAGNESIUM Routine 12/02/2024 11:07 AM EST Umbilical hernia without obstruction and without gangrene CBC AND DIFFERENTIAL Routine 12/02/2024 11:07 AM EST Umbilical hernia without obstruction and without gangrene BASIC METABOLIC PANEL Routine 12/02/2024 11:07 AM EST Umbilical hernia without obstruction and without gangrene CT ABDOMEN PELVIS W CONTRAST STAT 10/14/2024 8:46 PM EST XR CHEST 2 VIEWS STAT 10/14/2024 8:26 PM EST ECG 12-LEAD STAT 10/14/2024 8:17 PM EST TROPONIN I HIGH SENSITIVITY STAT 10/14/2024 7:59 PM EST REBOLLEDO URINE CULTURE TUBE STAT 10/14/2024 7:03 PM EST URINALYSIS WITH REFLEX MICROSCOPIC AND CULTURE STAT 10/14/2024 7:03 PM EST URINALYSIS WITH REFLEX MICROSCOPIC AND CULTURE STAT 10/14/2024 7:03 PM EST CULTURE URINE STAT 10/14/2024 7:03 PM EST CBC WITH AUTO DIFFERENTIAL STAT 10/14/2024 6:54 PM EST B-TYPE NATRIURETIC PEPTIDE STAT 10/14/2024 6:54 PM EST MAGNESIUM STAT 10/14/2024 6:54 PM EST LIPASE STAT 10/14/2024 6:54 PM EST COMPREHENSIVE METABOLIC PANEL STAT 10/14/2024 6:54 PM EST CBC AND DIFFERENTIAL STAT 10/14/2024 6:54 PM EST TROPONIN I HIGH SENSITIVITY STAT 10/14/2024 6:54 PM EST ECG 12-LEAD STAT 10/14/2024 6:34 PM EST ECG ANNOTATED 10/14/2024 from Last 3 Months Results * TH AN ENDOTRACHEAL(NO CHARGE) (12/09/2024 9:36 AM EST) Narrative Marshal Sinclair CRNA - 12/09/2024 9:36 AM EST Marshal Sinclair CRNA ? 12/09/2024 ??9:37 AM General Information and Staff Patient location during procedure: OR Performed by: Marshal Sinclair CRNA Authorized by: Tomas Collazo MD ?? Intubation Additional Comments Smooth induction. Intubated by EMT student with MAC 3, grade 2b cords clear. Airway not difficult Urgency: elective Final Airway Details Successful airway: ETT Cuffed: yes Successful intubation technique: direct laryngoscopy Facilitating devices/methods: anterior pressure/BURP Endotracheal tube insertion site: oral Blade: Yaritza Blade size: #3 ETT size (mm): 7.0 Cormack-Lehane Classification: grade IIb - view of arytenoids or posterior of glottis only Placement verified by: chest auscultation, capnometry and palpation of cuff Measured from: gums ETT to gums (cm): 22 Number of attempts at approach: 1 Ventilation between attempts: none Number of other approaches attempted: 0Final airway type: endotracheal airway Indications and Patient Condition Indications for airway management: anesthesia Spontaneous Ventilation: absent Sedation level: Yes Preoxygenated: yes Soft Tissue Damage: No Dentition Unchanged: Yes Patient position: neutral Mask difficulty assessment: 2 - vent by mask + OA or adjuvant +/- NMBA Tomas Collazo MD ANESTHESIA ORDERABLE S * Type and screen (12/09/2024 9:20 AM EST) Only the most recent of2 resultswithin the time period is included. ABO Group O 12/09/2024 10:42 AM EST [facility] Rh Type Positive 12/09/2024 10:42 AM EST [facility] Antibody Screen Negative 12/09/2024 10:42 AM EST [facility] Blood Venous blood specimen / Unknown Venipuncture / Unknown 12/09/2024 9:20 AM EST 12/09/2024 9:21 AM EST Griffin Loya MD LAB BLOOD BANK TEST ORDERABLES [facility] [address] [place] [address], * XR Chest 2 Views (12/02/2024 12:12 PM EST) Only the most recent of2 resultswithin the time period is included. Anatomical Region Laterality Modality Body Radiographic Kathy ging 12/02/2024 12:3 0 PM EST Impressions 12/02/2024 12:30 PM EST FINDINGS/IMPRESSION: Lungs are clear. ??No pleural effusion or pneumothorax. ??Cardiac silhouette is normal in size. ??Mild degenerative change seen throughout the bones. -------- FINAL REPORT -------- Dictated By: BLAIR BLOOM Dictated Date: 12/02/2024 12:30 ET Assigned Physician: BLAIR BLOOM Reviewed and Electronically Signed By: BLAIR BLOOM Signed Date: 12/02/2024 12:30 ET Workstation ID: [id number] Transcribed By: Self Edit Transcribed Date: 12/02/2024 12:30 ET Narrative 12/02/2024 12:30 PM EST XR CHEST 2 VIEWS INDICATION: ??Preoperative exam, pain TECHNIQUE: XR CHEST 2 VIEWS COMPARISON: 10/14/2024 Procedure Note Blair Bloom MD - 12/02/2024 XR CHEST 2 VIEWS INDICATION: Preoperative exam, pain TECHNIQUE: XR CHEST 2 VIEWS COMPARISON: 10/14/2024 IMPRESSION: FINDINGS/IMPRESSION: Lungs are clear. No pleural effusion orpneumothorax. Cardiac silhouette is normal in size. Mild degenerativechange seen throughout the bones. -------- FINAL REPORT -------- Dictated By: BLAIR BLOOM Dictated Date: 12/02/2024 12:30 ET Assigned Physician: BLAIR BLOOM Reviewed and Electronically Signed By: BLAIR BLOOM Signed Date: 12/02/2024 12:30 ET Workstation ID: [id number] Transcribed By: Self Edit Transcribed Date: 12/02/2024 12:30 ET Surekha RICKETTS IMG XR PROCEDURES * ECG 12 lead (12/02/2024 11:26 AM EST) Only the most recent of3 resultswithin the time period is included. Ventricular Rate ECG 86 BPM GEMUSE Atrial Rate 86 BPM GEMUSE P-R Interval 148 ms GEMUSE QRS Duration 92 ms GEMUSE Q-T Interval 366 ms GEMUSE QTc 437 ms GEMUSE P Wave Spring 30 degrees GEMUSE R Spring -24 degrees GEMUSE T Spring 31 degrees GEMUSE ECG Interpretation Sinus rhythm with occasional Premature ventricular complexes Possible Anterior infarct , age undetermined Nonspecific T wave abnormality Abnormal ECG When compared with ECG of 14-OCT-2024 20:17, Premature ventricular complexes are now Present Nonspecific T wave abnormality has replaced inverted T waves in Inferior leads Nonspecific T wave abnormality now evident in Lateral leads Confirmed by SONAM-DAVID, HENOK ([id number]) on 12/03/2024 10:48:25 AM GEMUSE 12/02/2024 11:2 6 AM EST 12/03/2024 10:48 AM EST Surekha RICKETTS ECG ORDERABLES GEMUSE * Urinalysis with reflex microscopic and culture (12/02/2024 11:07 AM EST) Only the most recent of2 resultswithin the time period is included. Specific [place] Urine 1.020 1.003 - 1.030 LAB URINALYSIS - AUTOMATED METHOD 12/02/2024 12:13 PM [facility] pH, Urine 6.0 5.0 - 8.0 pH LAB URINALYSIS - AUTOMATED METHOD 12/02/2024 12:13 PM [facility] Leukocytes, Urine Negative Negative LAB URINALYSIS - AUTOMATED METHOD 12/02/2024 12:13 PM [facility] Nitrite, Urine Negative Negative LAB URINALYSIS - AUTOMATED METHOD 12/02/2024 12:13 PM [facility] Protein, Urine Trace <=Trace mg/dL LAB URINALYSIS - AUTOMATED METHOD 12/02/2024 12:13 PM [facility] Glucose, Urine Negative Negative mg/dL LAB URINALYSIS - AUTOMATED METHOD 12/02/2024 12:13 PM [facility] Ketones, Urine Negative Negative mg/dL LAB URINALYSIS - AUTOMATED METHOD 12/02/2024 12:13 PM [facility] Urobilinogen, Urine 1.0 0.2 - 1.0 mg/dL LAB URINALYSIS - AUTOMATED METHOD 12/02/2024 12:13 PM [facility] Bilirubin, Urine Negative Negative LAB URINALYSIS - AUTOMATED METHOD 12/02/2024 12:13 PM [facility] Blood, Urine Negative Negative LAB URINALYSIS - AUTOMATED METHOD 12/02/2024 12:13 PM [facility] Urine Urine specimen obtained by clean catch procedure / Unknown Non-blood Collection / Unknown 12/02/2024 11:07 AM EST 12/02/2024 12:07 PM EST Surekha RICKETTS LAB URINE ORDERABLES Performing Organization Address City/[facility]/ZIP Co de Phone Number [facility] [address] [place] [address], [place] [phone] * [place] urine culture tube (12/02/2024 11:07 AM EST) Only the most recent of2 resultswithin the time period is included. Extra Tube Hold for add-ons. 12/02/2024 2:01 PM [facility] Comment:Auto resulted. Urine Urine specimen obtained by clean catch procedure / Unknown Non-blood Collection / Unknown 12/02/2024 11:07 AM EST 12/02/2024 12:07 PM EST Surekha RICKETTS LAB URINE ORDERABLES Performing Organization Address [facility] Co de Phone Number [facility] [address] [place] [address], [place] [phone] * (ABNORMAL) CBC auto differential (12/02/2024 11:07 AM EST) Only the most recent of2 resultswithin the time period is included. WBC 7.5 4.8 - 10.8 K/mcL LAB HEMETOLOGY METHOD 12/02/2024 12:48 PM [facility] RBC 3.40(L) 3.80 - 4.80 M/mcL LAB HEMETOLOGY METHOD 12/02/2024 12:48 PM [facility] Hemoglobin 9.2(L) 11.5 - 16.0 g/dL LAB HEMETOLOGY METHOD 12/02/2024 12:48 PM [facility] Hematocrit 29.9(L) 35.0 - 47.0 % LAB HEMETOLOGY METHOD 12/02/2024 12:48 PM [facility] MCV 87.4 79.0 - 98.0 FL LAB HEMETOLOGY METHOD 12/02/2024 12:48 PM [facility] MCH 26.9(L) 27.0 - 32.0 pcg LAB HEMETOLOGY METHOD 12/02/2024 12:48 PM [facility] MCHC 30.8(L) 32.0 - 37.0 g/dL LAB HEMETOLOGY METHOD 12/02/2024 12:48 PM [facility] RDW 14.5 11.0 - 15.0 % LAB HEMETOLOGY METHOD 12/02/2024 12:48 PM [facility] Platelets 501(H) 130 - 400 K/mcL LAB HEMETOLOGY METHOD 12/02/2024 12:48 PM [facility] MPV 10.4 7.0 - 11.0 FL LAB HEMETOLOGY METHOD 12/02/2024 12:48 PM [facility] NRBC 0.0 <1.0 % LAB HEMETOLOGY METHOD 12/02/2024 12:48 PM [facility] NRBC Absolute 0.00 <0.10 K/mcL LAB HEMETOLOGY METHOD 12/02/2024 12:48 PM [facility] Neutrophils Relative 73.7 % LAB HEMETOLOGY METHOD 12/02/2024 12:48 PM [facility] Lymphocytes Relative 18.2 % LAB HEMETOLOGY METHOD 12/02/2024 12:48 PM [facility] Monocytes Relative 6.2 % LAB HEMETOLOGY METHOD 12/02/2024 12:48 PM [facility] Eosinophils Relative 0.9 % LAB HEMETOLOGY METHOD 12/02/2024 12:48 PM [facility] Basophils Relative 0.7 % LAB HEMETOLOGY METHOD 12/02/2024 12:48 PM [facility] Immature Granulocytes Relative 0.3 % LAB HEMETOLOGY METHOD 12/02/2024 12:48 PM [facility] Neutrophils Absolute 5.56 1.50 - 7.00 K/mcL LAB HEMETOLOGY METHOD 12/02/2024 12:48 PM EST [facility] Lymphocytes Absolute 1.37 1.00 - 5.00 K/mcL LAB HEMETOLOGY METHOD 12/02/2024 12:48 PM [facility] Monocytes Absolute 0.47 0.20 - 1.00 K/mcL LAB HEMETOLOGY METHOD 12/02/2024 12:48 PM EST [facility] Eosinophils Absolute 0.07 0.00 - 0.50 K/mcL LAB HEMETOLOGY METHOD 12/02/2024 12:48 PM EST [facility] Basophils Absolute 0.05 0.00 - 0.20 K/mcL LAB HEMETOLOGY METHOD 12/02/2024 12:48 PM [facility] Immature Granulocytes Absolute 0.02 0.00 - 0.03 K/mcL LAB HEMETOLOGY METHOD 12/02/2024 12:48 PM [facility] Blood Venous blood specimen / Unknown Venipuncture / Unknown 12/02/2024 11:07 AM EST 12/02/2024 12:07 PM EST Surekha RICKETTS LAB BLOOD ORDERABLES [facility] [address] [place] [address], * Magnesium (12/02/2024 11:07 AM EST) Only the most recent of2 resultswithin the time period is included. Magnesium 2.1 1.9 - 2.6 mg/dL LAB CHEMISTRY METHOD 12/02/2024 12:52 PM [facility] Blood Venous blood specimen / Unknown Venipuncture / Unknown 12/02/2024 11:07 AM EST 12/02/2024 12:07 PM EST Surekha RICKETTS LAB BLOOD ORDERABLES [facility] [address] [place] [address], * (ABNORMAL) BMP (12/02/2024 11:07 AM EST) Pathologist [facility] Sodium 136 133 - 145 mmol/L LAB CHEMISTRY METHOD 12/02/2024 12:52 PM [facility] Potassium 3.8 3.5 - 5.5 mmol/L LAB CHEMISTRY METHOD 12/02/2024 12:52 PM [facility] Chloride 103 96 - 110 mmol/L LAB CHEMISTRY METHOD 12/02/2024 12:52 PM [facility] CO2 26 21 - 32 mmol/L LAB CHEMISTRY METHOD 12/02/2024 12:52 PM [facility] Anion Gap 7 3 - 11 LAB CHEMISTRY METHOD 12/02/2024 12:52 PM [facility] Glucose 146(H) 70 - 100 mg/dL LAB CHEMISTRY METHOD 12/02/2024 12:52 PM [facility] BUN 15 5 - 25 mg/dL LAB CHEMISTRY METHOD 12/02/2024 12:52 PM [facility] Creatinine 0.72 0.50 - 1.10 mg/dL LAB CHEMISTRY METHOD 12/02/2024 12:52 PM [facility] eGFR 92 >=60 mL/min/1. 73m2 LAB CHEMISTRY METHOD 12/02/2024 12:52 PM EST [facility] Comment:Calculation based on the??Chronic Kidney Disease Epidemiology Collaboration (CKD-EPI) equation refit??without adjustment for race. BUN/Creatinine Ratio 20.8 LAB CHEMISTRY METHOD 12/02/2024 12:52 PM EST [facility] Calcium 10.0 8.5 - 10.5 mg/dL LAB CHEMISTRY METHOD 12/02/2024 12:52 PM EST [facility] Blood Venous blood specimen / Unknown Venipuncture / Unknown 12/02/2024 11:07 AM EST 12/02/2024 12:07 PM EST Surekha RICKETTS LAB BLOOD ORDERABLES [facility] [address] [place] [address], * CT Abdomen Pelvis w Contrast (10/14/2024 8:46 PM EST) Anatomical Region Laterality Modality Body Computed Tomogra phy 10/14/2024 9:05 PM EST Impressions 10/14/2024 9:05 PM EST Impression: No acute process This document has been electronically signed by: Carlo Barton MD on 10/14/2024 21:05:15 Narrative 10/14/2024 9:[address] abdomen and pelvis with contrast Comparison: None Findings: Ascending aorta dilated at 4.2 cm. It is not fully included on this study. Cardiomegaly with coronary artery calcifications. No acute abnormalities in the lung bases. Mild degenerative change spine and hips. No acute bony abnormalities. Status post gastric bypass surgery. Liver and spleen within normal limits. Pancreas and adrenal glands unremarkable. Cholecystectomy. Bilateral kidneys demonstrate no focal abnormality. No renal stones or hydronephrosis. Abdominal aorta is normal in caliber. No free fluid or adenopathy in the pelvis. No acute diverticulitis. Appendix unremarkable. Uterus normal size. No adnexal abnormality. Procedure Note Carlo Barton MD - 10/14/2024 CT abdomen and pelvis with contrast Comparison: None Findings: Ascending aorta dilated at 4.2 cm. It is not fully included on this study. Cardiomegaly with coronary artery calcifications. No acute abnormalities in the lung bases. Mild degenerative change spine and hips. No acute bony abnormalities. Status post gastric bypass surgery. Liver and spleen within normal limits. Pancreas and adrenal glands unremarkable. Cholecystectomy. Bilateral kidneys demonstrate no focal abnormality. No renal stones or hydronephrosis. Abdominal aorta is normal in caliber. No free fluid or adenopathy in the pelvis. No acute diverticulitis. Appendix unremarkable. Uterus normal size. No adnexal abnormality. IMPRESSION: Impression: No acute process This document has been electronically signed by: Carlo Barton MD on 10/14/2024 21:05:15 Micah John MD IMG CT PROCEDURES * Troponin I high sensitivity (10/14/2024 7:59 PM EST) Only the most recent of2 resultswithin the time period is included. [facility] High Sensitivity Troponin I 20 <=54 ng/L LAB CHEMISTRY METHOD 10/14/2024 8:48 PM EST [facility] Blood Venous blood specimen / Unknown Venipuncture / Unknown 10/14/2024 7:59 PM EST 10/14/2024 8:22 PM EST Narrative [facility] - 10/14/2024 8:48 PM EST High levels of biotin in samples may falsely decrease hsTroponin values. ??Use caution when interpreting hsTroponin results in patients taking biotin who exhibit renal impairment (eGFR <60) or in patients taking more than 20 mg/day of biotin. Micah John MD LAB BLOOD ORDERAB LES [facility] [address] [place] [address], * Culture urine (10/14/2024 7:03 PM EST) [facility] Culture, Urine No growth 10/15/2024 2:03 PM EST [facility] Urine Non-blood Collection / Unknown 10/14/2024 7:03 PM EST 10/14/2024 8:03 PM EST Micah John MD LAB MICROBIOLOGY - GENERAL ORDERABLES Performing Organization Address [facility]/ZIP Co de Phone Number [facility] [address] [place] [address], [place] [phone] * B-type natriuretic peptide (10/14/2024 6:54 PM EST) BNP 27 <=100 pcg/mL LAB CHEMISTRY METHOD 10/14/2024 7:40 PM EST [facility] Blood Venous blood specimen / Unknown Venipuncture / Unknown 10/14/2024 6:54 PM EST 10/14/2024 6:58 PM EST Micah John MD LAB BLOOD ORDERAB LES Performing Organization Address [facility]/ZIP Co de Phone Number [facility] [address] [place] [address], [place] [phone] * Lipase (10/14/2024 6:54 PM EST) [facility] Lipase 51 13 - 75 unit/L LAB CHEMISTRY METHOD 10/14/2024 7:43 PM EST [facility] Blood Venous blood specimen / Unknown Venipuncture / Unknown 10/14/2024 6:54 PM EST 10/14/2024 6:58 PM EST Micah John MD LAB BLOOD ORDERAB LES Performing Organization Address [facility]/ZIP Co de Phone Number [facility] [address] [place] [address], [place] [phone] * (ABNORMAL) Comprehensive metabolic panel (10/14/2024 6:54 PM EST) Pathologist [facility] Sodium 139 133 - 145 mmol/L LAB CHEMISTRY METHOD 10/14/2024 7:43 PM [facility] Potassium 3.6 3.5 - 5.5 mmol/L LAB CHEMISTRY METHOD 10/14/2024 7:43 PM [facility] Chloride 105 96 - 110 mmol/L LAB CHEMISTRY METHOD 10/14/2024 7:43 PM [facility] CO2 26 21 - 32 mmol/L LAB CHEMISTRY METHOD 10/14/2024 7:43 PM [facility] Anion Gap 8 3 - 11 LAB CHEMISTRY METHOD 10/14/2024 7:43 PM [facility] Glucose 101(H) 70 - 100 mg/dL LAB CHEMISTRY METHOD 10/14/2024 7:43 PM [facility] BUN 20 5 - 25 mg/dL LAB CHEMISTRY METHOD 10/14/2024 7:43 PM [facility] Creatinine 0.78 0.50 - 1.10 mg/dL LAB CHEMISTRY METHOD 10/14/2024 7:43 PM [facility] eGFR 84 >=60 mL/min/1. 73m2 LAB CHEMISTRY METHOD 10/14/2024 7:43 PM [facility] Comment:Calculation based on the??Chronic Kidney Disease Epidemiology Collaboration (CKD-EPI) equation refit??without adjustment for race. BUN/Creatinine Ratio 25.6 LAB CHEMISTRY METHOD 10/14/2024 7:43 PM [facility] Calcium 10.1 8.5 - 10.5 mg/dL LAB CHEMISTRY METHOD 10/14/2024 7:43 PM [facility] AST (SGOT) 23 10 - 42 unit/L LAB CHEMISTRY METHOD 10/14/2024 7:43 PM [facility] ALT (SGPT) 24 10 - 60 unit/L LAB CHEMISTRY METHOD 10/14/2024 7:43 PM [facility] Alkaline Phosphatase 98 42 - 121 unit/L LAB CHEMISTRY METHOD 10/14/2024 7:43 PM EST [facility] Total Protein 8.1(H) 6.0 - 8.0 g/dL LAB CHEMISTRY METHOD 10/14/2024 7:43 PM EST [facility] Albumin 4.0 3.2 - 5.0 g/dL LAB CHEMISTRY METHOD 10/14/2024 7:43 PM EST [facility] Total Bilirubin 0.3 0.0 - 1.4 mg/dL LAB CHEMISTRY METHOD 10/14/2024 7:43 PM EST [facility] Blood Venous blood specimen / Unknown Venipuncture / Unknown 10/14/2024 6:54 PM EST 10/14/2024 6:58 PM EST Micah John MD LAB BLOOD ORDERAB LES [facility] [address] [place] [address], * ECG-Annotated (10/14/2024) Provider Onbase ECG ORDERABLES from Last 3 Months Advance Directives Documents on File Type Date Recorded Patient Acid Operator Expl anation Health Care Decision (hx) 05/24/2015 AD PRAJAPATI DIRECTIVE Health Care Decision (hx) 05/24/2015 AD PRAJAPATI DIRECTIVE Health Care Decision (hx) 05/24/2015 AD PRAJAPATI DIRECTIVE Health Care Decision (hx) 05/24/2015 AD PRAJAPATI DIRECTIVE Health Care Decision (hx) 05/24/2015 AD PRAJAPATI DIRECTIVE Health Care Decision (hx) 05/24/2015 AD PRAJAPATI DIRECTIVE Health Care Decision (hx) 05/24/2015 AD PRAJAPATI DIRECTIVE Health Care Decision (hx) 05/24/2015 AD PRAJAPATI DIRECTIVE Health Care Decision (hx) 05/24/2015 AD PRAJAPATI DIRECTIVE Health Care Decision (hx) 05/24/2015 AD PRAJAPATI DIRECTIVE Health Care Decision (hx) 05/24/2015 AD PRAJAPATI DIRECTIVE Health Care Decision (hx) 05/24/2015 AD PRAJAPATI DIRECTIVE Health Care Decision (hx) 05/24/2015 AD PRAJAPATI DIRECTIVE Health Care Decision (hx) 05/24/2015 AD PRAJAPATI DIRECTIVE Health Care Decision (hx) 05/24/2015 AD PRAJAPATI DIRECTIVE Health Care Decision (hx) 05/24/2015 AD PRAJAPATI DIRECTIVE Health Care Decision (hx) 05/24/2015 AD PRAJAPATI DIRECTIVE Health Care Decision (hx) 05/24/2015 AD PRAJAPATI DIRECTIVE Health Care Decision (hx) 05/21/2015 AD PRAJAPATI DIRECTIVE Health Care Decision (hx) 05/21/2015 AD PRAJAPATI DIRECTIVE Health Care Decision (hx) 05/21/2015 AD PRAJAPATI DIRECTIVE Health Care Decision (hx) 05/21/2015 AD PRAJAPATI DIRECTIVE Health Care Decision (hx) 05/21/2015 AD PRAJAPATI DIRECTIVE Health Care Decision (hx) 05/21/2015 AD PRAJAPATI DIRECTIVE Health Care Decision (hx) 05/21/2015 AD PRAJAPATI DIRECTIVE Health Care Decision (hx) 05/21/2015 AD PRAJAPATI DIRECTIVE Health Care Decision (hx) 05/21/2015 AD PRAJAPATI DIRECTIVE Health Care Decision (hx) 05/21/2015 AD PRAJAPATI DIRECTIVE Health Care Decision (hx) 05/21/2015 AD PRAJAPATI DIRECTIVE Health Care Decision (hx) 05/21/2015 AD PRAJAPATI DIRECTIVE Health Care Decision (hx) 05/21/2015 AD PRAJAPATI DIRECTIVE Health Care Decision (hx) 05/21/2015 AD PRAJAPATI DIRECTIVE Health Care Decision (hx) 05/21/2015 AD PRAJAPATI DIRECTIVE Health Care Decision (hx) 05/21/2015 AD PRAJAPATI DIRECTIVE Health Care Decision (hx) 05/21/2015 AD PRAJAPATI DIRECTIVE Health Care Decision (hx) 05/21/2015 AD PRAJAPATI DIRECTIVE Health Care Decision (hx) 05/19/2015 AD PRAJAPATI DIRECTIVE Health Care Decision (hx) 05/19/2015 AD PRAJAPATI DIRECTIVE Health Care Decision (hx) 05/19/2015 AD PRAJAPATI DIRECTIVE Health Care Decision (hx) 05/19/2015 AD PRAJAPATI DIRECTIVE Health Care Decision (hx) 05/19/2015 AD PRAJAPATI DIRECTIVE Health Care Decision (hx) 05/19/2015 AD PRAJAPATI DIRECTIVE Health Care Decision (hx) 05/19/2015 AD PRAJAPATI DIRECTIVE Health Care Decision (hx) 05/19/2015 AD PRAJAPATI DIRECTIVE Health Care Decision (hx) 05/19/2015 AD PRAJAPATI DIRECTIVE Health Care Decision (hx) 05/19/2015 AD PRAJAPATI DIRECTIVE Health Care Decision (hx) 05/19/2015 AD PRAJAPATI DIRECTIVE Health Care Decision (hx) 05/19/2015 AD PRAJAPATI DIRECTIVE Health Care Decision (hx) 05/19/2015 AD PRAJAPATI DIRECTIVE Health Care Decision (hx) 05/19/2015 AD PRAJAPATI DIRECTIVE Health Care Decision (hx) 05/19/2015 AD PRAJAPATI DIRECTIVE Health Care Decision (hx) 05/19/2015 AD PRAJAPTAI DIRECTIVE Health Care Decision (hx) 05/19/2015 AD PRAJAPATI DIRECTIVE Health Care Decision (hx) 05/19/2015 AD PRAJAPATI DIRECTIVE * Full Code - Default (Latest Code Status on File) Date Activated Date Inactivated Comments 12/09/2024 8:13 AM 12/09/2024 3:18 PM This is orde r is used when code status has not been discussed with the patient, or code status is otherwise unknown/unconfirmed To update the patient's code status, place a code status order. Do not modify or discontinue any currently active code status orders. Care Teams Business Intelligence Consultant Relationship Specialty Start Date End Date Mary Jo Conteh MD [address] , [address] [facility] D/B/A: [facility] [place] PCP - General Internal Medicine 05/28/18
--- OUTSIDE RECORDS SUMMARY | 2024-12-14 15:11 | XMS_ITS | Data Portability ---
Author Organization [place] - [facility], Allergy Address [address] [address] Assessment Encounter Date Assessment Date Assessment LastModified by Organization Details LastModified Time 07/08/2024 07/08/2024 My physical examination today is benign with postoperative changes to the right parotid bed. This may explain some of her discomfort to the musculature near the angle of her mandible and jaw joint. 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 I gave reassurance this is benign and does not represent brain fluid. 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 She will follow-up to review results [email or web address] Not available 07/08/2024 14:01:29 Plan of Treatment Reminders Order Date Submit Date Provider Last Modified By Organization Details Last Modified Time Details Appointments None recorded. Lab None recorded. Referral None recorded. Procedures None recorded. Surgeries None recorded. Imaging MRI, neck, w/wo contrast - icelandic speaker, hx of right parotidecto my for malignant tumor 2013. now with right facial pain concern for recurrence 2023 024 LOUISE Not available 10:06:34 Medication Orders None recorded. Patient TargetsNo targets recorded. Patient InstructionsNo instructions recorded. Reason for Referral None Reported. Results Created Date Observation Date Name Description Value Unit Range Abnormal Flag Note LastModifiedBy Organization Detail LastModifiedTime 07/08/2003/23/2019 imagi ng/di agnos tic resul t No observ ation record ed. [email or web address] Not Available 23:50:04 07/08/20 24 03/23/2019 imagi ng/di agnos tic resul t No observ ation record ed. [email or web address] Not Available 23:50:10 07/08/20 24 06/04/2019 imagi ng/di agnos tic resul t No observ ation record ed. [email or web address] Not Available 23:50:48 07/08/20 24 06/05/2019 imagi ng/di agnos tic resul t No observ ation record ed. [email or web address] Not Available 23:50:53 09/07/20 24 09/05/2024 MRI, neck, w/wo contr ast No observ ation record ed. [email or web address] [address], [address], 10/09/2024 09:09:01 Result Notes None recorded. 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; Note: Date Diagnose d: 5 3:03 PM (388.72) Not Available [facility] 4 02:29:38 Malignan t tumor of parotid gland 799882683 Completed 201806/19/2024 Malignan t neoplasm of parotid gland; Location : right No te: Date Diagnose d: 9 11:40 AM (C07) Not Available [facility] 4 02:29:33 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 Procedures Surgical History None recorded. Imaging Results Imaging Date Name Status LastModified by Organiz ation Details LastModified Time 03/23/2019 imaging/diagn ostic result completed Information not available 07/08/2024 23:50:04 03/23/2019 imaging/diagn ostic result completed Information not available 07/08/2024 23:50:10 06/04/2019 imaging/diagn ostic result completed Information not available 07/08/2024 23:50:48 06/05/2019 imaging/diagn ostic result completed Information not available 07/08/2024 23:50:53 09/05/2024 MRI, neck, w/wo contrast completed [email or web address] [facility] [address] [place], [address], 10/09/2024 09:09:01 Procedure Notes None recorded. Medical Equipment None Reported. Medications Name Sig Start Date Stop Date Status Note LastModified by Organization Details LastModified Time comfrt touch pad alc prep active Not Available Not Available Not Available methocarbamol 500 mg tablet active Not Available Not Availabl e Not Available Vitamin C 500 mg tablet active Not Available Not Available No t Available hydroxyzine pamoate 50 mg capsule active Not Available Not Available Not Available sulfamethoxazol e 800 mg-trimethoprim 160 mg tablet active Not Available Not Availabl e Not Available acetaminophen 500 mg tablet active Not Available Not Availabl e Not Available methenamine hippurate 1 gram tablet active Not Available Not Available Not Available cephalexin 500 mg capsule TAKE 1 CAPSULE BY MOUTH EVERY 6 HOURS active Not Available Not Available No t Available esomeprazole magnesium 40 mg capsule,delayed release active Not Available Not Available Not Available polymyxin B sulfate 10,000 unit-trimethopr im 1 mg/mL eye drops active Not Available Not Available Not Available omeprazole 20 mg capsule,delayed release active Not Available Not Available Not Available pravastatin 20 mg tablet active Not Available Not Available No t Available ibuprofen 600 mg tablet active Not Available Not Available No t Available levofloxacin 500 mg tablet active Not Available Not Availabl e Not Available ondansetron 4 mg disintegrating tablet active Not Available Not Available Not Available Ventolin HFA 90 mcg/actuation aerosol inhaler active Not Available Not Availa ble Not Available Alcohol Prep Pads active Not Available Not Available Not Available FreeStyle Lite Strips active Not Available Not Available Not Available cholecalciferol (vitamin D3) 1,250 mcg (50,000 unit) capsule active Not Available Not Available Not Available estradiol 10 mcg vaginal tablet active Not Available Not Available Not Available sodium,potassiu m,mag sulfates 17.5 gram-3.13 gram-1.6 gram oral soln active Not Available Not Available No t Available Pure Comfort Safety Lancets 30 gauge active Not Available Not Available Not Available Wegovy 0.25 mg/0.5 mL subcutaneous pen injector active Not Available Not Available Not Available Vitals Date Recorded Body height Body mass index (BMI) Body weight Provider Name and Address Organization Details Last Updated DateTime 07/08/2024 152.4 cm 29.3 kg/m2 02790.86 g Marc Odonnell [place] - [facility] 07/08/2024 13:41:16 Social History None recorded. Functional Status None recorded. Mental Status None recorded. Family History Nothing Reported. Medical History No medical history recorded. Gynecological HistoryNo gynecological history recorded. Obstetrics History GPAL:G 0 P 0 0 0 0 Past Encounters Encounter ID Performer Location Encounter Start Date Encounter Closed Date Diagnosis/Indication Diagnosis SNOMED-CT Code Diagnosis ICD10 Code Diagnosis Note [id number] CHRIS WOO MD [facility] [address] [address] 07/08/2024 13:31:55 07/08/2024 14:01:53 History of malignant neoplasm of parotid gland 4799822406 18856 Z85.818 Health Concerns Section Related Observation LastModified by Organization Detai ls LastModified Time None Recorded Concern Status LastModified by Organization Details LastModified Time None Recorded Advance Directives Directive None Recorded Payers Encounter Date Sequence Insurance Name Policy Number Policy Madrigal Covered Member ID Madrigal Member ID Guarantor Name 07/08/2024 1 [facility] Maura Travis [id number] Maura Travis Notes Date Note Type Note Provider Name and Address Organization Details Recorded Time 07/08/2024 text/html icelandic - IPADhx of right deep lobe parotid with Dr Rasheed in 2013. Was told it was malignant, but on surveillance imaging no growth or recurrence. 03/2019 MRI neck to investigate right neck pain.right facial pain started about February 2021feels the pain in the bone now.feels movement of face is slight decrease on right side 2020 Dr Johnson thyroid surgery for a follicular nodule CHRIS WOO MD [address] [place] [address], [phone], [facility] - [facility] 07/08/2024 14:01:47 OBGyn Episode No OBEpisode recorded.
--- OUTSIDE RECORDS SUMMARY | 2024-12-14 15:12 | XMS_ITS | Encounter Summary ---
Author Organization [employer] Address [address] [place] [address] Care Team Providers Care Funeral Pre Need Consultant Name Role Phone Mary Jo Conteh MD Primary Care Provider [phone] Encounter Details Date Type Department Care Team (Latest Contact Info) Description 12/02/2024 12:07 PM EST - 12/02/2024 11:59 PM EST Hospital Encounter [facility] [address] [place] [phone] Discharge Disposition: Home or Self Care Social History Tobacco Use Types Packs/Day Years Used Date Smoking Tobacco: Never Smokeless Tobacco: Never Alcohol Use Standard Drinks/Week Comments No 0 (1 standard drink = 0.6 oz pur e alcohol) Sex and Gender Information Value Date Recorded Sex Assigned at Female 10/14/2024 7:16 PM EST Gender Identity Female 10/14/2024 7:16 PM EST Sexual Orientation Straight 10/14/2024 7: 16 PM EST Job Start Date Occupation Industry Not on file Not on file Not on file documented as of this encounter Medications at Time of Discharge Medication Sig Dispensed Refills Start Date End Date acetaminophen (TYLENOL) 500 mg tablet Take 2 tablets (1,000 mg total) by mouth every 6 (six) hours if needed for mild pain for up to 30 doses. 30 tablet 12/09/2024 albuterol HFA (Ventolin HFA) 90 mcg/actuation inhaler AMLODIPINE BESYLATE, BULK, MISC Take 20 mg by mouth 1 (one) time each day. ascorbic ytdl-ketamygi-lcz 1,000 mg powder effervescent in packet Take by mouth. cholecalciferol (VITAMIN D-3) 1,250 mcg (50,000 unit) capsule 03/27/2024 docusate sodium (COLACE) 100 mg capsule Take 1 capsule (100 mg total) by mouth 2 (two) times a day if needed for constipation for up to 10 days. 20 each 12/09/2024 12/19/2024 METOPROLOL SUCCINATE ORAL Take 25 mg by mouth 1 (one) time each day. mo/Non-Adher Bndg/petrolatum (GAUZE PADS AND DRESSINGS TOP) 2 Units by Does not apply route daily for 15 doses. Apply as many gauzes as necessary to keep the area dry. 02/08/2023 nystatin (MYCOSTATIN) cream Apply 1 Application topically 1 (one) time each day. 06/25/2018 oxyCODONE (ROXICODONE) 5 mg immediate release tablet Take 1 tablet (5 mg total) by mouth every 6 (six) hours if needed for severe pain. Max Daily Amount: 20 mg 15 tablet 12/09/2024 phentermine 15 mg capsule Take 1 Capsule by mouth every morning for 30 days. 03/24/2024 documented as of this encounter Discharge Disposition Disposition Code Departure Means Destination Home or Self Care documented in this encounter Plan of Treatment Upcoming Encounters Date Type Department Care Team (Late st Contact Info) Description 12/16/2024 9:20 AM EST Office Visit Gastroenterology - [place] 175 [facility] [address] [phone] Dave Leblanc PA 175 [facility] 200 [place] [address] 12/24/2024 11:30 AM EST Office Visit Bariatric Surgery - [place] 175 [facility] 120 [place] [phone] Surekha Don PA 271 [facility] 120 [place] [address] documented as of this encounter Procedures Procedure Name Priority Date/Time Associated Diagnosis Comments XR CHEST 2 VIEWS Routine 12/02/2024 12:1 2 PM EST Umbilical hernia without obstruction and without gangrene documented in this encounter Results * XR Chest 2 Views (12/02/2024 12:12 PM EST) Anatomical Region Laterality Modality Body Radiographic Kathy ging 12/02/2024 12:3 0 PM EST Impressions 12/02/2024 12:30 PM EST FINDINGS/IMPRESSION: Lungs are clear. ??No pleural effusion or pneumothorax. ??Cardiac silhouette is normal in size. ??Mild degenerative change seen throughout the bones. -------- FINAL REPORT -------- Dictated By: ISABEL SUMMERS Dictated Date: 12/02/2024 12:30 ET Assigned Physician: ISABEL SUMMERS Reviewed and Electronically Signed By: ISABEL SUMMERS Signed Date: 12/02/2024 12:30 ET Workstation ID: [id number] Transcribed By: Self Edit Transcribed Date: 12/02/2024 12:30 ET Narrative 12/02/2024 12:30 PM EST XR CHEST 2 VIEWS INDICATION: ??Preoperative exam, pain TECHNIQUE: XR CHEST 2 VIEWS COMPARISON: 10/14/2024 Procedure Note Isabel Summers MD - 12/02/2024 XR CHEST 2 VIEWS INDICATION: Preoperative exam, pain TECHNIQUE: XR CHEST 2 VIEWS COMPARISON: 10/14/2024 IMPRESSION: FINDINGS/IMPRESSION: Lungs are clear. No pleural effusion orpneumothorax. Cardiac silhouette is normal in size. Mild degenerativechange seen throughout the bones. -------- FINAL REPORT -------- Dictated By: ISABEL SUMMERS Dictated Date: 12/02/2024 12:30 ET Assigned Physician: ISBAEL SUMMERS Reviewed and Electronically Signed By: ISABEL SUMMERS Signed Date: 12/02/2024 12:30 ET Workstation ID: [id number] Transcribed By: Self Edit Transcribed Date: 12/02/2024 12:30 ET Surekha RICKETTS IMG XR PROCEDURES documented in this encounter Visit Diagnoses Not on filedocumented in this encounter Care Teams Funeral Pre Need Consultant Relationship Specialty Start Date End Date Mary Jo Conteh MD [address] [place] [address] , [address] [facility] D/B/A: [facility] CARLOS MANUEL Zeng PCP - General Internal Medicine 05/28/18 documented as of this encounter
--- OUTSIDE RECORDS SUMMARY | 2024-12-14 15:12 | XMS_ITS | Encounter Summary ---
Author Organization [facility] Address [address] [place] [address] Care Team Providers Care In School Suspension Coordinator Name Role Phone Mary Jo Conteh MD Primary Care Provider [phone] Encounter Details Date Type Department Care Team (Latest Contact Info) Description 12/01/2024 10:30 AM EST Pre-Admission Testing [facility] Pre-Admission Testing [address] [place] [id number] Umbilical hernia without obstruction and without gangrene Social History Tobacco Use Types Packs/Day Years [...] on file documented as of this encounter Plan of Treatment Upcoming Encounters Date Type Department Care Team (Late st Contact Info) Description 12/16/2024 9:20 AM EST Office Visit Gastroenterology - [place] [address] [facility] 175 [facility] [address] [place] [address] Dave Leblanc PA 175 [facility] [address] [place], [place] [id number] 12/24/2024 11:30 AM EST Office Visit Bariatric Surgery - [place] [address] [facility] [address] [place] [address] Surekha Don PA [address] [facility] [address] [place] [address] documented as of this encounter Procedures Procedure [...] Signed Date: 12/02/2024 12:30 ET Workstation ID: [id number] Transcribed By: Self Edit Transcribed Date: 12/02/2024 [...] Signed Date: 12/02/2024 12:30 ET Workstation ID: [id number] Transcribed By: Self Edit Transcribed Date: 12/02/2024 12:30 ET Surekha RICKETTS IMVidhya XR PROCEDURES * ECG 12 lead (12/02/2024 11:26 AM EST) Ventricular Rate ECG 86 BPM GEMUSE Atrial Rate 86 BPM GEMUSE P-R Interval 148 ms GEMUSE QRS Duration 92 ms GEMUSE Q-T Interval 366 ms GEMUSE QTc 437 ms GEMUSE P Wave [place] 30 degrees GEMUSE R [place] -24 degrees GEMUSE T [place] 31 degrees GEMUSE ECG Interpretation Sinus rhythm with occasional Premature ventricular complexes Possible Anterior infarct , age undetermined Nonspecific T wave abnormality Abnormal ECG When compared with ECG of 14-OCT-2024 20:17, Premature ventricular complexes are now Present Nonspecific T wave abnormality has replaced inverted T waves in Inferior leads Nonspecific T wave abnormality now evident in Lateral leads Confirmed by HENOK MICHEL ([id number]) on 12/03/2024 10:48:25 AM GEMUSE 12/02/2024 11:2 6 AM EST 12/03/2024 10:48 AM EST Surekha RICKETTS ECG ORDERABLES Performing Organization Address City/[facility]/ZIP Co de Phone Number GEMUSE * [place] urine culture tube (12/02/2024 11:07 AM EST) [facility] Extra Tube Hold for add-ons. 12/02/2024 2:01 PM [facility] Comment:Auto resulted. Urine Urine specimen obtained by clean catch procedure / Unknown Non-blood Collection / Unknown 12/02/2024 11:07 AM EST 12/02/2024 12:07 PM EST Surekha RICKETTS LAB URINE ORDERABLES Performing Organization Address [facility] Co de Phone Number [facility] [address] [place] [address], [place] [phone] * Urinalysis with reflex microscopic and culture (12/02/2024 11:07 AM EST) [facility] Specific [place] Urine 1.020 1.003 - 1.030 LAB URINALYSIS - AUTOMATED METHOD 12/02/2024 12:13 PM [facility] pH, Urine 6.0 5.0 - 8.0 pH LAB URINALYSIS - AUTOMATED METHOD 12/02/2024 12:13 PM [facility] Leukocytes, Urine Negative Negative LAB URINALYSIS - AUTOMATED METHOD 12/02/2024 12:13 PM [facility] Nitrite, Urine Negative Negative LAB URINALYSIS - AUTOMATED METHOD 12/02/2024 12:13 PM [facility] Protein, Urine Trace <=Trace mg/dL LAB URINALYSIS - AUTOMATED METHOD 12/02/2024 12:13 PM [facility] Glucose, Urine Negative Negative mg/dL LAB URINALYSIS - AUTOMATED METHOD 12/02/2024 12:13 PM [facility] Ketones, Urine Negative Negative mg/dL LAB URINALYSIS - AUTOMATED METHOD 12/02/2024 12:13 PM [facility] Urobilinogen, Urine 1.0 0.2 - 1.0 mg/dL LAB URINALYSIS - AUTOMATED METHOD 12/02/2024 12:13 PM [facility] Bilirubin, Urine Negative Negative LAB URINALYSIS - AUTOMATED METHOD 12/02/2024 12:13 PM [facility] Blood, Urine Negative Negative LAB URINALYSIS - AUTOMATED METHOD 12/02/2024 12:13 PM [facility] Urine Urine specimen obtained by clean catch procedure / Unknown Non-blood Collection / Unknown 12/02/2024 11:07 AM EST 12/02/2024 12:07 PM EST Surekha RICKETTS LAB URINE ORDERABLES [facility] [address] [place] [address], * (ABNORMAL) CBC auto differential (12/02/2024 11:07 AM EST) WBC 7.5 4.8 - 10.8 K/mcL LAB HEMETOLOGY METHOD 12/02/2024 12:48 PM [facility] RBC 3.40(L) 3.80 - 4.80 M/mcL LAB HEMETOLOGY METHOD 12/02/2024 12:48 PM [facility] Hemoglobin 9.2(L) 11.5 - 16.0 g/dL LAB HEMETOLOGY METHOD 12/02/2024 12:48 PM [facility] Hematocrit 29.9(L) 35.0 - 47.0 % LAB HEMETOLOGY METHOD 12/02/2024 12:48 PM [facility] MCV 87.4 79.0 - 98.0 FL LAB HEMETOLOGY METHOD 12/02/2024 12:48 PM [facility] MCH 26.9(L) 27.0 - 32.0 pcg LAB HEMETOLOGY METHOD 12/02/2024 12:48 PM [facility] MCHC 30.8(L) 32.0 - 37.0 g/dL LAB HEMETOLOGY METHOD 12/02/2024 12:48 PM [facility] RDW 14.5 11.0 - 15.0 % LAB HEMETOLOGY METHOD 12/02/2024 12:48 PM [facility] Platelets 501(H) 130 - 400 K/mcL LAB HEMETOLOGY METHOD 12/02/2024 12:48 PM [facility] MPV 10.4 7.0 - 11.0 FL LAB HEMETOLOGY METHOD 12/02/2024 12:48 PM [facility] NRBC 0.0 <1.0 % LAB HEMETOLOGY METHOD 12/02/2024 12:48 PM [facility] NRBC Absolute 0.00 <0.10 K/mcL LAB HEMETOLOGY METHOD 12/02/2024 12:48 PM [facility] Neutrophils Relative 73.7 % LAB HEMETOLOGY METHOD 12/02/2024 12:48 PM [facility] Lymphocytes Relative 18.2 % LAB HEMETOLOGY METHOD 12/02/2024 12:48 PM [facility] Monocytes Relative 6.2 % LAB HEMETOLOGY METHOD 12/02/2024 12:48 PM [facility] Eosinophils Relative 0.9 % LAB HEMETOLOGY METHOD 12/02/2024 12:[address] [facility] Basophils Relative 0.7 % LAB HEMETOLOGY METHOD 12/02/2024 12:48 PM [facility] Immature Granulocytes Relative 0.3 % LAB HEMETOLOGY METHOD 12/02/2024 12:48 PM [facility] Neutrophils Absolute 5.56 1.50 - 7.00 K/mcL LAB HEMETOLOGY METHOD 12/02/2024 12:[address] [facility] Lymphocytes Absolute 1.37 1.00 - 5.00 K/mcL LAB HEMETOLOGY METHOD 12/02/2024 12:48 PM [facility] Monocytes Absolute 0.47 0.20 - 1.00 K/mcL LAB HEMETOLOGY METHOD 12/02/2024 12:48 PM [facility] Eosinophils Absolute 0.07 0.00 - 0.50 K/mcL LAB HEMETOLOGY METHOD 12/02/2024 12:48 PM [facility] Basophils Absolute 0.05 0.00 - 0.20 K/mcL LAB HEMETOLOGY METHOD 12/02/2024 12:48 PM [facility] Immature Granulocytes Absolute 0.02 0.00 - 0.03 K/mcL LAB HEMETOLOGY METHOD 12/02/2024 12:48 PM [facility] Blood Venous blood specimen / Unknown Venipuncture / Unknown 12/02/2024 11:07 AM EST 12/02/2024 12:07 PM EST Surekha RICKETTS LAB BLOOD ORDERABLES [facility] [address] [place] [address], * Type and screen (12/02/2024 11:07 AM EST) ABO Group O 12/02/2024 1:[address] [facility] Rh Type Positive 12/02/2024 1:[address] [facility] Antibody Screen Negative 12/02/2024 1:51 PM [facility] Blood Venous blood specimen / Unknown Venipuncture / Unknown 12/02/2024 11:07 AM EST 12/02/2024 12:08 PM EST Surek[facility] RICKETTS LAB BLOOD BANK TEST ORDERABLES [facility] [address] [place] [address], * Magnesium (12/02/2024 11:07 AM EST) Pathologist [facility] Magnesium 2.1 1.9 - 2.6 mg/dL LAB CHEMISTRY METHOD 12/02/2024 12:52 PM [facility] Blood Venous blood specimen / Unknown Venipuncture / Unknown 12/02/2024 11:07 AM EST 12/02/2024 12:07 PM EST Surekha RICKETTS LAB BLOOD ORDERABLES Performing Organization Address City/[facility]/ZIP Co de Phone Number [facility] [address] [place] [address], [place] [phone] * (ABNORMAL) BMP (12/02/2024 11:07 AM EST) Sodium 136 133 - 145 mmol/L LAB CHEMISTRY METHOD 12/02/2024 12:52 PM [facility] Potassium 3.8 3.5 - 5.5 mmol/L LAB CHEMISTRY METHOD 12/02/2024 12:52 PM [facility] Chloride 103 96 - 110 mmol/L LAB CHEMISTRY METHOD 12/02/2024 12:52 PM [facility] CO2 26 21 - 32 mmol/L LAB CHEMISTRY METHOD 12/02/2024 12:52 PM [facility] Anion Gap 7 3 - 11 LAB CHEMISTRY METHOD 12/02/2024 12:52 PM [facility] Glucose 146(H) 70 - 100 mg/dL LAB CHEMISTRY METHOD 12/02/2024 12:52 PM [facility] BUN 15 5 - 25 mg/dL LAB CHEMISTRY METHOD 12/02/2024 12:52 PM [facility] Creatinine 0.72 0.50 - 1.10 mg/dL LAB CHEMISTRY METHOD 12/02/2024 12:52 PM [facility] eGFR 92 >=60 mL/min/1. 73m2 LAB CHEMISTRY METHOD 12/02/2024 12:52 PM [facility] Comment:Calculation based on the??Chronic Kidney Disease Epidemiology Collaboration (CKD-EPI) equation refit??without adjustment for race. BUN/Creatinine Ratio 20.8 LAB CHEMISTRY METHOD 12/02/2024 12:52 PM [facility] Calcium 10.0 8.5 - 10.5 mg/dL LAB CHEMISTRY METHOD 12/02/2024 12:52 PM [facility] Blood Venous blood specimen / Unknown Venipuncture / Unknown 12/02/2024 11:07 AM EST 12/02/2024 12:07 PM EST Surekha RICKETTS LAB BLOOD ORDERABLES [facility] [address] [place] [address], documented in this encounter Visit Diagnoses Diagnosis Umbilical hernia without obstruction and without gangrene documented in this encounter Care Teams In School Suspension Coordinator Relationship Specialty Start Date End Date Mary Jo Conteh MD 2 [facility] , [address] [place] [address] Physician Associ D/B/A: [facility] CARLOS MANUEL Zeng PCP - General Internal Medicine 05/28/18 documented as of this encounter
--- OUTSIDE RECORDS SUMMARY | 2024-12-14 15:12 | XMS_ITS | Encounter Summary ---
Author Organization [employer] Address [address] [place] [address] Care Team Providers Care Hot Metal Mixer Operator Helper Name Role Phone Mary Jo Conteh MD Primary Care Provider [phone] Reason for Visit * Auth/Cert (Routine) Specialty Diagnoses / Procedures Referred By Suzanne t Referred To Contact Diagnoses Umbilical hernia RECURRENT UMBILICAL HERNIA Procedures TN REPR ANT ABD HERNIA(S) ANY APPR RECUR INCL IMPL < 3 CM INCARCERATED/STRG TN EXPLORATION OF PENETRATING WOUND (SEPARATE PROCEDURE) ABDOMEN/FLANK/BACK TN REMOVAL PROSTHETIC MATERIAL OR MESH ABDOMINAL WALL FOR INFECTION OPEN EXPLORATION UMBILICUS W/REPAIR OF RECURRENT UMBILICAL HERNIA & REMOVAL OF OLD MESH Griffin Loya MD [address] [place] [id number] Referral ID Status Reason Start Date Expiration Date Visits Re quested Visits Authorized [id number] 11/19/2024 1 1 Encounter Details Date Type Department Care Team (Late st Contact Info) Description 12/09/2024 9:22 AM EST Anesthesia Event [facility] Main OR [address] [place] [address] Tomas Collazo MD [address] [place] [id number] Marshal Sinclair CRNA [address] [place] [id number] Anesthesia Record Procedure Summary Procedure Name Responsible Anesthesiologist Anesthesia Start Time Anesthesia Stop Time OPEN EXPLORATION UMBILICUS W/REPAIR OF RECURRENT UMBILICAL HERNIA (Abdomen) Tomas Collazo MD 12/09/24 0922 12/09/24 1035 Events Date Time Event Comment 12/09/2024 0851 0921 In Room 0922 An Start 0922 An Start Data The patient wa s reevaluated immediately before moderate or deep sedation use and before anesthesia induction. 0925 An Induction 0929 An Intubation 0932 Anesthesia Ready 0946 Proc Start 1024 An Extubation 1029 an stop data 1030 Out of Room 1030 Handoff to RN I completed my handoff to the receiving nurse during which we: 1. Identified the patient 2. Identified the responsible provider 3. Reviewed the pertinent medical history 4. Discussed the surgical course 5. Reviewed intra-op anesthesia management and issues during anesthesia 6. Set expectations for post-procedure period 7. Allowed opportunity for questions and acknowledgement of understanding. 1035 An Stop Meds Name Total lidocaine PF (XYLOCAINE-MPF) local injec tion 2% 50 mg midazolam 1 mg/mL 2 mg fentaNYL (SUBLIMAZE) injection 100 mcg propofol (DIPRIVAN) injection 10 mg/mL 1 50 mg rocuronium 50 mg ondansetron 2 mg/mL 4 mg dexamethasone (DECADRON) injection 4 mg/ mL 4 mg ePHEDrine injection 10 mg ceFAZolin (ANCEF) 2 g in sterile water 2 0 mL IV syringe 2 g sugammadex (BRIDION) injection 100 mg/mL 200 mg lactated Ringer's infusion 600 mL * Agents Name O2 N2O Air Sevoflurane Inspired Sevoflurane * Blood No blood administrations on file. Lines, Drains, and Airways Type Details Placement Removal Wound Incision; 12/09/24; 1004; N; Abdomen; Mid 12/09/24 1004 by Lashon Cherry RN Peripheral IV Placement Date: 10/14/24; Placement Time: 1900; Catheter Size: 20 G; Orientation: Left; Location: Antecubital; Site Prep: Chlorhexidine; Insertion Attempts: 1; Patient Tolerance: Tolerated well; Removal Date: 12/09/24; Removal Time: 1302 10/14/24 1900 by Gladys Alexander RN 12/09/24 1302 by Claribel Carcamo RN ETT Placement Date: 12/09/24; Placement Time: 0937 (created via procedure documentation); Mask Ventilation: 2; Technique: Direct laryngoscopy; Type: ETT; Cuffed: Yes; Blade Size: 3; Location: Oral; Insertion Attempts: 1; Placement Verification: Auscultation, Capnometry, Palpation of cuff; Airway Comments: Smooth induction. Intubated by EMT student with MAC 3, grade 2b cords clear. ; Removal Date: 12/09/24; Removal Time: 1024 12/09/24 0937 by Marshal Sinclair CRNA 12/09/24 1024 by Marshal Sinclair CRNA documented in this encounter Social History Tobacco Use Types Packs/Day Years Used Date Smoking Tobacco: Former Cigarettes Smokeless Tobacco: Never Alcohol Use Standard Drinks/Week [...] on file documented as of this encounter Progress Notes * Marshal Sinclair CRNA - 12/09/2024 10:35 AM EST Patient: Maura Smith Procedure Summary Date: 12/09/24 Room / Location: [email or web address]] OR / [facility] [[email or web address]] OR Anesthesia Start: 921 Anesthesia Stop: 1034 Procedure: OPEN EXPLORATION UMBILICUS W/REPAIR OF RECURRENT UMBILICAL HERNIA (Abdomen) Diagnosis: Umbilical hernia (RECURRENT UMBILICAL HERNIA) Surgeons: Griffin Loya MD Responsible Provider: Tomas Collazo MD Anesthesia Type: general ASA Status: 2 Anesthesia Plan: general Last Vitals: Vitals Value Taken Time BP 111/60 12/09/24 1035 Temp 97.6 12/09/24 1035 Pulse 68 12/09/24 1035 Resp 18 12/09/24 1035 SpO2 100 12/09/24 1035 No data recorded Anesthesia Post Evaluation Patient location during evaluation: PACU Patient participation: complete - patient participated Level of consciousness: awake Pain score: 1 Pain management: adequate Airway patency: patent Anesthetic complications: no Cardiovascular status: acceptable and hemodynamically stable Respiratory status: acceptable and face mask Hydration status: acceptable Nausea: No Vomiting: No There were no known notable events for this encounter. * Marshal Sinclair CRNA - 12/09/2024 9:36 AM ESTAssociated Order(s): Intubation General Information and Staff Patient location during procedure: OR Performed by: Marshal Sinclair CRNA Authorized by: Tomas Collazo MD Intubation Additional Comments Smooth induction. Intubated by [...] mask + OA or adjuvant +/- NMBA * Tomas Collazo MD - 12/09/2024 8:48 AM EST 64 y.o. female scheduled for [TN REPR ANT ABD HERNIA(S) ANY APPR RECUR INCL IMPL < 3 CM I*] Ht Readings from Last 1 Encounters: 11/19/24 1.524 m (60 ) Wt Readings from Last 1 Encounters: 11/19/24 72.1 kg (159 lb) There is no height or weight on file to calculate BMI. Past Medical History: Diagnosis Date Arthritis Asthma 05/29/2018 DX:Asthma Disease of thyroid gland Fibromyalgia Gastritis DX:Gastritis GERD (gastroesophageal reflux disease) History of gastric surgery DX:History of gastric surgery History of Helicobacter pylori infection 05/29/2018 DX:History of Helicobacter pylori infection; COMMENT: Diagnosed at pre-op History of laparoscopic adjustable gastric banding 05/29/2018 DX:History of laparoscopic adjustable gastric banding; COMMENT: 11/2014 Hypercholesteremia 05/29/2018 DX:Hypercholesteremia Hypertension Joint pain Obesity, Class I, BMI 30-34.9 05/29/2018 DX:Obesity, Class I, BMI 30-34.9 Pneumonia Past Surgical History: Procedure Laterality Date LAPAROSCOPIC GASTRIC BANDING 11/2014 PROCEDURE: LAP ADJUSTABLE GASTRIC BAND LAPAROSCOPIC GASTRIC BANDING REMOVAL 1-2 YRS AGO PER PT Denies anesthesia complications No Known Allergies No current facility-administered medications on file prior to encounter. Current Outpatient Medications on File Prior to Encounter Medication Sig Dispense Refill albuterol HFA (Ventolin HFA) 90 mcg/actuation inhaler AMLODIPINE BESYLATE, BULK, MISC Take 20 mg by mouth 1 (one) time each day. ascorbic rnws-wbcjmltv-rbc 1,000 mg powder effervescent in packet Take by mouth. cholecalciferol (VITAMIN D-3) 1,250 mcg (50,000 unit) capsule METOPROLOL SUCCINATE ORAL Take 25 mg by mouth 1 (one) time each day. phentermine 15 mg capsule Take 1 Capsule by mouth every morning for 30 days. mo/Non-Adher Bndg/petrolatum (GAUZE PADS AND DRESSINGS TOP) 2 Units by Does not apply route daily for 15 doses. Apply as many gauzes as necessary to keep the area dry. nystatin (MYCOSTATIN) cream Apply 1 Application topically 1 (one) time each day. Current In-hospital Medications ceFAZolin, 2 g, intravenous, Once Social History Tobacco Use Smoking status: Former Types: Cigarettes Smokeless tobacco: Never Substance Use Topics Alcohol use: No Drug use: Never Is the patient a current smoker (e.g. cigarette, cigar, pip, e-cigarette, or mariajuana)? Yes [] No[x] Patient previously instructed to abstain from smoking on the day of procedure? Yes [] No[] Patient smoked on the day of procedure? Yes [] No[] ASPIRE smoking VBR: [] Not interested in quitting [] Interested in quitting- referred to treatment [] Interested in quitting - treatment provided Visit Vitals BP (!) 142/76 Pulse 71 Temp 36.2 ??C (97.1 ??F) Resp 16 SpO2 99% Smoking Status Former Available cardiac studies reviewed: XR Chest 2 Views Result Date: 12/02/2024 Narrative: XR CHEST 2 VIEWS INDICATION: Preoperative exam, pain TECHNIQUE: XR CHEST 2 VIEWS COMPARISON: 10/14/2024 Impression: FINDINGS/IMPRESSION: Lungs are clear. No pleural effusion or pneumothorax. Cardiac silhouette is normal in size. Mild degenerative change seen throughout the bones. -------- FINAL REPORT -------- Dictated By: ISABEL SUMMERS Dictated Date: 12/02/2024 12:30 ET Assigned Physician: ISABEL SUMMERS Reviewed and Electronically Signed By: ISABEL SUMMERS Signed Date: 12/02/2024 12:30 ET Workstation ID: [id number] Transcribed By: Self Edit Transcribed Date: 12/02/2024 12:30 ET EKG Encounter Date: 12/01/24 ECG 12 lead Result Value Ventricular Rate ECG 86 Atrial Rate 86 P-R Interval 148 QRS Duration 92 Q-T Interval 366 QTc 437 P Wave Fenton 30 R Fenton -24 T Fenton 31 ECG Interpretation Sinus rhythm with occasional Premature ventricular complexes Possible Anterior infarct , age undetermined Nonspecific T wave abnormality Abnormal ECG When compared with ECG of 14-OCT-2024 20:17, Premature ventricular complexes are now Present Nonspecific T wave abnormality has replaced inverted T waves in Inferior leads Nonspecific T wave abnormality now evident in Lateral leads Confirmed by HNEOK MICHEL ([id number]) on 12/03/2024 10:48:25 AM *Note: Due to a large number of results and/or encounters for the requested time period, some results have not been displayed. A complete set of results can be found in Results Review. ECHO No results found for this or any previous visit. CATH No results found for this or any previous visit. LABS: Lab Results Component Value Date WBC 7.5 12/02/2024 HGB 9.2 (L) 12/02/2024 HCT 29.9 (L) 12/02/2024 MCV 87.4 12/02/2024 PLT 501 (H) 12/02/2024 Lab Results Component Value Date GLUCOSE 146 (H) 12/02/2024 CALCIUM 10.0 12/02/2024 NA 136 12/02/2024 K 3.8 12/02/2024 CO2 26 12/02/2024 CL 103 12/02/2024 BUN 15 12/02/2024 CREATININE 0.72 12/02/2024 No results found for: INR , PROTIME No results found for: PTT Denies cardiac, pulm, neuro, hepatic or renal s/sx. Patient meets ASA guidelines for NPO status. > 4 mets without anginal symptoms. Relevant labs, vitals, imaging, cardiac and pulmonary studies as well as HPI, Meds, Allergies, ROS,PMH, PSH, SH, and FH reviewed. Relevant Problems Pulmonary (+) Asthma Clinical information reviewed: Tobacco Allergies Meds Med Hx Surg Hx OB Status Fam Hx Soc Hx Anesthesia Plan ASA 2 Anesthesia Plan: general Anesthesia Considerations general ETT Anesthesia Risks Discussed dental injury, nausea, pain, sore throat, corneal abrasion, allergic reaction and serious complications Plan Factors Patient is not a current smoker Smoking cessation education has not been provided Induction method: intravenous Postoperative administration of opioids is intended. Anesthetic plan and risks discussed with patient. Use of blood products discussed with patient who did not consent to blood products. Blood Products Consent Comment: Refuses PRBCs and whole blood. Plasma is ok. Anesthesia Plan discussed with MACHINE SIZER. Anesthesia Evaluation Patient summary reviewed and Nursing notes reviewed Airway Mallampati: II Thyromental distance: >3 FB Neck ROM: fullnot intubatedno noted risk Dental Pulmonary breath sounds clear to auscultation (+) pneumonia, asthma Cardiovascular (+) hypertension Rhythm: regular Rate: normal Neuro/Psych Mental Status: alert and oriented GI/Hepatic/Renal (+) GERD well controlled Endo/Other Abdominal Abdomen: soft. Bowel sounds: normal. PONV RISK SCORE: 2 Vitals: 12/09/24 0827 12/09/24 0841 BP: (!) 142/76 Pulse: 71 Resp: 16 Temp: 36.2 ??C (97.1 ??F) SpO2: 99% SpO2 Readings from Last 1 Encounters: 12/09/24 99% WBC Date Value Ref Range Status 12/02/2024 7.5 4.8 - 10.8 K/mcL Final RBC Date Value Ref Range Status 12/02/2024 3.40 (L) 3.80 - 4.80 M/mcL Final Hemoglobin Date Value Ref Range Status 12/02/2024 9.2 (L) 11.5 - 16.0 g/dL Final Hematocrit Date Value Ref Range Status 12/02/2024 29.9 (L) 35.0 - 47.0 % Final Platelets Date Value Ref Range Status 12/02/2024 501 (H) 130 - 400 K/mcL Final MCV Date Value Ref Range Status 12/02/2024 87.4 79.0 - 98.0 FL Final No Known Allergies STOP BANG: No data recorded NPO Status: Time of Last Liquid: 2199 Time of Last Solid: 2199 documented in this encounter Plan of Treatment Upcoming Encounters Date Type Department Care Team (Late st Contact Info) Description 12/16/2024 9:20 AM EST Office Visit Gastroenterology - [place] [address] [facility] 175 [facility] [address] [place] [id number] Dave Leblanc PA 175 [facility] [address] [place] [address] 12/24/2024 11:30 AM EST Office Visit Bariatric Surgery - [place] 175 [facility] [address] [place] [address] Surekha Don PA 271 [facility] 120 [place] [address] documented as of this encounter Procedures Procedure Name Priority Date/Time Associated Diagnosis Comments TH AN ENDOTRACHEAL(NO CHARGE) Routine 12/09/2024 9:36 AM EST documented in this encounter Results * TH AN ENDOTRACHEAL(NO CHARGE) (12/09/2024 [...] NMBA Tomas Collazo MD ANESTHESIA ORDERABLE S documented in this encounter Visit Diagnoses Not on filedocumented in this encounter Administered Medications Inactive Administered Medications - up to 3 most recent administrations Medication Order MAR Action Action Date Dose Rate Site ceFAZolin (ANCEF) 2 g in sterile water 20 mL IV syringe 2 g, intravenous, Administer over 3 Minutes, Once, On Sat12/09/24 at 0830, For 1 dose, Preprocedure, -IV Push over 3 minutes -Administer within 60 minutes of incision, Indication: Prophylaxis-Surgical New Bag 12/09/2024 9:30 AM EST 2 g dexAMETHasone (DECADRON) injection intravenous, As needed, Starting on Sat12/09/24 at 0935, Anesthesia Intraprocedure Given 12/09/2024 9:35 AM EST 4 mg ePHEDrine (AKOVAZ) 50 mg/mL injection intravenous, As needed, Starting on Sat12/09/24 at 0931, Anesthesia Intraprocedure Given 12/09/2024 9:31 AM EST 10 mg fentaNYL (PF) (SUBLIMAZE) injection intravenous, As needed, Starting on Sat12/09/24 at 0921, Anesthesia Intraprocedure Given 12/09/2024 9:46 AM EST 50 mcg Given 12/09/2024 9:21 AM EST 50 mcg lactated Ringer's infusion intravenous, Continuous PRN, Starting on Sat12/09/24 at 0921, Anesthesia Intraprocedure New Bag 12/09/2024 9:21 AM EST lidocaine (PF) (XYLOCAINE-MPF) 2 % injection injection, As needed, Starting on Sat12/09/24 at 0925, Anesthesia Intraprocedure Given 12/09/2024 9:25 AM EST 5 0 mg midazolam (VERSED) injection intravenous, As needed, Starting on Sat12/09/24 at 0921, Anesthesia Intraprocedure Given 12/09/2024 9:21 AM EST 2 mg ondansetron (PF) (ZOFRAN) injection intravenous, As needed, Starting on Sat12/09/24 at 0935, Anesthesia Intraprocedure Given 12/09/2024 9:35 AM EST 4 mg propofoL (DIPRIVAN) injection intravenous, As needed, Starting on Sat12/09/24 at 0925, Anesthesia Intraprocedure Given 12/09/2024 9:25 AM EST 1 50 mg rocuronium (ZEMURON) injection intravenous, As needed, Starting on Sat12/09/24 at 0925, Anesthesia Intraprocedure Given 12/09/2024 9:25 AM EST 5 0 mg sugammadex (BRIDION) 100 mg/mL injection intravenous, As needed, Starting on Sat12/09/24 at 1012, Anesthesia Intraprocedure Given 12/09/2024 10:[address] 200 mg documented in this encounter Care Teams Hot Metal Mixer Operator Helper Relationship Specialty Start Date End Date Mary Jo Conteh MD 2 [facility] , [address] [place] [address] Physician Associ D/B/A: [facility] CARLOS MANUEL Zeng PCP - General Internal Medicine 05/28/18 documented as of this encounter
--- OUTSIDE RECORDS SUMMARY | 2024-12-14 15:12 | XMS_ITS | Encounter Summary ---
Author Organization [employer] Address [address] [place] [address] Care Team Providers Care Retail Sales Associate Name Role Phone Mary Jo Conteh MD Primary Care Provider [phone] Reason for Visit * Reason Comments Follow-up 3 month follow up Encounter Details Date Type Department Care Team (Latest Contact Info) Description 11/19/2024 2:15 PM EST Office Visit Bariatric Surgery - [place] 175 [facility] [address] [place] [phone] Griffin Loya MD 175 [facility] 120 [place] [address] Periumbilical abdominal pain (Primary Dx) Social History Tobacco Use Types Packs/Day Years [...] on file documented as of this encounter Last Filed Vital Signs Vital Sign Reading Time Taken Comments Blood Pressure 146/85 11/19/2024 2:19 PM EST Pulse 67 11/19/2024 2:19 PM EST Temperature 36.2 ??C (97.2 ??F) 11/19/2024 2:19 PM ES T Respiratory Rate - - Oxygen Saturation - - Inhaled Oxygen Concentration - - Weight 72.1 kg (159 lb) 11/19/2024 2:19 PM EST Height 152.4 cm (5') 11/19/2024 2:19 PM EST Body Mass Index 31.05 11/19/2024 2:19 PM EST documented in this encounter Progress Notes * Grififn Loya MD - 11/19/2024 2:15 PM EST Ms. Travis is a 64 y.o. year old female who presents for surgical follow up regarding obesity. HPI: Ms. Travis had RNY bypass, band over bypass and the removal of bane for erosion. Periumbilical pain for months. Has gone to ER several times. Nausea. Constipation. Acid taste in the mouth. CT scan reviewed. Has maintained weight after Lap Band was removed. ROS: GENERAL: No malaise, significant unintentional weight loss, fever, chills or night sweats. HEENT: No changes in hearing or vision, no nose bleeds or other nasal problems. NECK: No lumps, goiter, pain or significant neck swelling RESPIRATORY: No cough, wheezing or shortness of breath CARDIOVASCULAR: No chest pain, leg swelling or palpitations. GI: as above.. : No dysuria, frequency or incontinence. SKIN: No lesions, rash or itching. HEMATOLOGY: No prolonged bleeding, easy bruisability. LYMPHOLOGY No swollen nodes. MUSCULOSKELETAL: No abnormalities. NEURO: No abnormalities. All other systems reviewed which are negative. 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 Calculus of gallbladder with chronic cholecystitis without obstruction 09/14/2020 Asthma 05/29/2018 Hypercholesteremia 05/29/2018 Obesity, Class I, BMI 30-34.9 05/29/2018 PAST SURGICAL HISTORY: Past Surgical History: Procedure Laterality Date LAPAROSCOPIC GASTRIC BANDING 11/2014 PROCEDURE: LAP ADJUSTABLE GASTRIC BAND SOCIAL HISTORY: Social History Tobacco Use Smoking status: Never Smokeless tobacco: Never Substance Use Topics Alcohol use: No FAMILY HISTORY: Family History Problem Relation Name Age of Onset Diabetes Mother Hypertension Mother Hyperlipidemia Mother Family Status Relation Name Status Mother Alive Father No partnership data on file MEDICATIONS: There are no discontinued medications. ACTIVE MEDICATIONS: No outpatient medications have been marked as taking for the 11/19/24 encounter (Office Visit) with Griffin Loya MD. ALLERGIES: No Known Allergies PHYSICAL EXAM: Visit Vitals BP (!) 146/85 Pulse 67 Temp 36.2 ??C (97.2 ??F) (Oral) Ht 1.524 m (60 ) Wt 72.1 kg (159 lb) BMI 31.05 kg/m?? Smoking Status Never BSA 1.69 m?? APPEARANCE: Alert and oriented and in no acute distress EYES: Conjunctiva normal and sclera normal and anicteric. NECK: Neck supple with no adenopathy. HEART: RRR with normal S 1 and S 2, no murmurs, no gallops. LUNG: Clear to auscultation LYMPH NODES: No gross cervical or clavicular lymphadenopathy. ABDOMEN: umbilical tenderness ? hernia. EXTREMITIES: Extremities warm and well perfused without clubbing, cyanosis, or edema. SKIN: Skin color and texture normal. No rashes or lesions. NEUROLOGIC: Alert and oriented ??3. No motor or sensory deficits in the extremities. LABS/IMAGING: ASSESSMENT: 1. Periumbilical abdominal pain PLAN: 1. I suspect small recurrent hernia or pain related to previous repair. Options discussed. Will proceed with open exploration of the umbilicus with repair of recurrent hernia and removal of old mesh. documented in this encounter Plan of Treatment Upcoming Encounters Date Type Department Care Team (Late st Contact Info) Description 12/16/2024 9:20 AM EST Office Visit Gastroenterology - [place] 175 [facility] 175 [facility] 200 [place] [address] Dave Leblanc PA [address] [facility] 200 [place] [address] 12/24/2024 11:30 AM EST Office Visit Bariatric Surgery - [place] 175 [facility] [address] [place] [address] Surekha Don PA 271 [facility] [address] [place] [address] documented as of this encounter Visit Diagnoses Diagnosis Periumbilical abdominal pain- Primary Abdominal pain, periumbilic documented in this encounter Care Teams Retail Sales Associate Relationship Specialty Start Date End Date Mary Jo Conteh MD 2 [facility] , [address] [facility] Physician Associ D/B/A: [facility] CARLOS MANUEL Zeng PCP - General Internal Medicine 05/28/18 documented as of this encounter
--- OUTSIDE RECORDS SUMMARY | 2024-12-14 15:12 | XMS_ITS | Encounter Summary ---
Author Organization [employer] Address [address] [place] [address] Care Team Providers Care Line Analyst Name Role Phone Mary Jo Conteh MD Primary Care Provider [phone] Reason for Visit * Auth/Cert (Routine) Specialty Diagnoses / Procedures Referred By Suzanne t Referred To Contact Diagnoses Umbilical hernia RECURRENT UMBILICAL HERNIA Procedures AR REPR ANT ABD HERNIA(S) ANY APPR RECUR INCL IMPL < 3 CM INCARCERATED/STRG AR EXPLORATION OF PENETRATING WOUND (SEPARATE PROCEDURE) ABDOMEN/FLANK/BACK AR REMOVAL PROSTHETIC MATERIAL OR MESH ABDOMINAL WALL FOR INFECTION OPEN EXPLORATION UMBILICUS W/REPAIR OF RECURRENT UMBILICAL HERNIA & REMOVAL OF OLD MESH Griffin Aviles MD [address] [place] [address] Referral ID Status Reason Start Date Expiration Date Visits Re quested Visits Authorized [id number] 11/19/2024 1 1 Encounter Details Date Type Department Care Team (Late st Contact Info) Description 12/09/2024 9:30 AM EST - 12/09/2024 11:30 AM EST Surgery [facility] Main OR [address] [place] [address] Griffin Aviles MD [address] [place] [id number] OPEN EXPLORATION UMBILICUS W/REPAIR OF RECURRENT UMBILICAL HERNIA [50054 (CPT??)] Surgery Details Date/Time Status Location OR Service Patient Class Case Class Case Type Trauma Case? 12/09/2024 9:30 AM Posted [facility] OR OR 02 General Surgery to the Floor F - Elective Panel 1 Procedure LRB Anes Op Region Wound Class Comments OPEN EXPLORATION UMBILICUS W /REPAIR OF RECURRENT UMBILICAL HERNIA N/A general Abdomen Class I/ Clean Surgeon Surgeon Role Service Panel Griffin Aviles MD Primary General 1 Case Notes IN PT Special Needs ADMISSION STATUS UPDATED TO INPT VIA PHONE W/ KENZIE PER INSURANCE WR 12/08 documented in this encounter Social History Tobacco [...] EST Inhaled Oxygen Concentration - - Weight - - Height - - Body Mass Index - - documented in this encounter Discharge Instructions * Discharge Instructions* LILIAM Son - 12/09/2024 10:42 AM EST You underwent an exploration of your umbilicus (nicholas) with Dr. Aviles on 12/09/2024 Diet: Resume regular diet as tolerated Continue drink plenty of fluids to stay hydrated Activity: No lifting, pushing, or pulling greater than 10 to 15 pounds for the next 4 to 6 weeks No driving within 24 hours of taking narcotic pain medication Continue to ambulate/walk to help prevent postop blood clots Medication: Please resume home medication as previously prescribed You may take 1000 mg of Tylenol every 6-8 hours as needed for pain For severe pain you may take 5 to 10 mg of oxycodone every 4-6 hours as needed If you become constipated due to narcotic pain medication use you may take 100 mg of Colace twice daily Wound Care: Please remove your dressing on postop day #2 - 12/11/2024 After this you may shower Gently cleanse the incision and pat dry No soaking or scrubbing You may apply ice to the surgical incision to help with postop pain and swelling Follow-Up: Please follow-up in Dr. Aviles's office for your 2-week postop appointment as previously scheduled Please call the office if you need to make adjustments to this appointment Please call the surgeons office for any questions or concerns including fever greater than 101.5, chills, nausea, vomiting, severe abdominal pain, or any other signs of wound infection * Attachments The following attachments cannot be sent through Care Everywhere. * General Anesthesia (Tajik) documented in this encounter Medications at Time of Discharge Medication Sig Dispensed Refills Start Date End Date albuterol HFA (Ventolin HFA) 90 mcg/actuation inhaler AMLODIPINE BESYLATE, BULK, MISC Take 20 mg by mouth 1 (one) time each day. ascorbic oaed-baoeaylu-tlo 1,000 mg powder effervescent in packet Take by mouth. cholecalciferol (VITAMIN D-3) 1,250 mcg (50,000 unit) capsule 03/27/2024 METOPROLOL SUCCINATE ORAL Take 25 mg by mouth 1 (one) time each day. phentermine 15 mg capsule Take 1 Capsule by mouth every morning for 30 days. 03/24/2024 acetaminophen (TYLENOL) 500 mg tablet Take 2 tablets (1,000 mg total) by mouth every 6 (six) hours if needed for mild pain for up to 30 doses. 30 tablet 12/09/2024 docusate sodium (COLACE) 100 mg capsule Take 1 capsule (100 mg total) by mouth 2 (two) times a day if needed for constipation for up to 10 days. 20 each 12/09/2024 12/19/2024 mo/Non-Adher Bndg/petrolatum (GAUZE PADS AND DRESSINGS TOP) [...] Daily Amount: 20 mg 15 tablet 12/09/2024 documented as of this encounter Ordered Prescriptions Prescription Sig Dispensed Refills Start Date End Da te docusate sodium (COLACE) 100 mg capsule Take 1 capsule (100 mg total) by mouth 2 (two) times a day if needed for constipation for up to 10 days. 20 each 12/09/2024 12/19/2024 oxyCODONE (ROXICODONE) 5 mg immediate release tablet Take 1 tablet (5 mg total) by mouth every 6 (six) hours if needed for severe pain. Max Daily Amount: 20 mg 15 tablet 12/09/2024 acetaminophen (TYLENOL) 500 mg tablet Take 2 tablets (1,000 mg total) by mouth every 6 (six) hours if needed for mild pain for up to 30 doses. 30 tablet 12/09/2024 documented in this encounter Discharge Disposition Disposition Code Departure Means Destination Comment s Home or Self Care documented in this encounter H&P Notes * Griffin Aviles MD - 12/09/2024 8:34 AM EST History and Physical Update ( H&P completed within the previous thirty days ) I personally reviewed the History and Physical, interviewed and examined the patient prior to surgery. No changes have occurred in the patient's condition since the History and Physical was completed. I also reviewed the CT scan. Size and site of the small hernia was annotated. Source Note - LILIAM Son - 11/27/2024 11:00 AM EST Pat orders documented in this encounter Procedure Notes * Claribel Carcamo RN - 12/09/2024 12:50 PM EST Went over all instructions with patient and daughter * Claribel Carcamo RN - 12/09/2024 12:[address] Aviles came over to speak with patient and daughter. * Griffin Aviles MD - 12/09/2024 9:46 AM EST OPEN EXPLORATION UMBILICUS W/REPAIR OF RECURRENT UMBILICAL HERNIA OPERATIVE NOTE Date: 12/09/2024 Location: [facility] OR Name: Maura Smith, : 1960, Diagnosis Pre-op Diagnosis * Umbilical hernia [K42.9] Post-op Diagnosis * Umbilical hernia [K42.9] Procedures OPEN EXPLORATION UMBILICUS W/REPAIR OF RECURRENT UMBILICAL HERNIA 71075 - AR REPR ANT ABD HERNIA(S) ANY APPR RECUR INCL IMPL < 3 CM INCARCERATED/STRG 04298 - AR EXPLORATION OF PENETRATING WOUND (SEPARATE PROCEDURE) ABDOMEN/FLANK/BACK 01789 - AR REMOVAL PROSTHETIC MATERIAL OR MESH ABDOMINAL WALL FOR INFECTION Additional Procedures - AR EXPLORATION OF PENETRATING WOUND (SEPARATE PROCEDURE) ABDOMEN/FLANK/BACK 84425 - AR REMOVAL PROSTHETIC MATERIAL OR MESH ABDOMINAL WALL FOR INFECTION Indications: Maura Smith is an 64 y.o. female who is having surgery for RECURRENT UMBILICAL HERNIA. The patient has been complaining of abdominal pain. The CT scan was recently done. Theonly abnormality was a small defect at the site of the umbilicus. Surgeon(s) & Chemicals Fermentation Operator(s) * Griffin Aviles MD - Primary Surekha Don PA-C, Secondary. Anesthesia: general ASA: II Estimated Blood Loss: None Drains: * No LDAs found * Specimen: none Procedure Details: The procedure was done under general anesthesia with the patient in supine position. The abdomen was prepped and draped as usual and the universal time half an hour was completed. Marcaine solution was then infiltrated around the umbilicus. An incision was made above, around, below the umbilicus. Excision was carried out very carefully to avoid dividing the stalk of the umbilicus and affecting the blood supply. The patient had had an abdominoplasty in the past. I was able to find the fascia and to dissect around the stalk of the umbilicus. The fascia was opened proximally and I entered the space behind the rectus muscle. Careful palpation of the area did not show a real defect. I also opened the peritoneum and placed my finger in the area. No defects were noted. No adhesions in the area. Peritoneum was then closed with a running 3-0 Vicryl. The fascia was well exposed and I closed the opening of the fascia with a running 0 Prolene. I also reinforced the area around the umbilicus to treat any potential small hernia. The fascia appeared to be weak to the left of the umbilicus, which is the area of question on the CT scan. Again, the stalk of the umbilicus was left alone. Was closed by layers using 3-0 Vicryl for the fatty tissue and running 4-0 Monocryl for the skin. Before closing the incision I injected 10 cc of 0.25% Marcaine solution to provide rectus sheath blocks. The patient was then extubated and was transferred to the recovery room in stable condition. Findings: Probable small recurrent hernia. Complications: None; patient tolerated the procedure well. Disposition: PACU - hemodynamically stable. Condition: stable * Ileana Agudelo RN - 12/09/2024 8:51 AM EST PT VOIDED IN BR YELLOW URINE NOTED * Ileana Agudelo RN - 12/09/2024 8:49 AM EST PT VERBALIZES VIA ARNOL RICHARD THAT SHE DOESN'T WANT BLOOD BUT WILL TAKE PLASMA-JUST NO RBC-SHE STATES SHE IS NOT A JEHOVAH BUT BELIEVES IN GOD JEHOVAH- DR VASQUEZ PRESENT AND AWARE * Ileana Agudelo RN - 12/09/2024 8:[address] AVILES AWARE OF PTS C/O HEMTURIA-WILL ORDER C/S ALSO AWARE PT REFUSES BLOOD PRODUCTS * Ileana Agudelo RN - 12/09/2024 8:20 AM EST NIRAJ SANTILLAN [phone] documented in this encounter Plan of Treatment Upcoming Encounters Date Type Department Care Team (Late st Contact Info) Description 12/16/2024 9:20 AM EST Office Visit Gastroenterology - [place] [address] [facility] [address] [place] [phone] Dave Leblanc PA 175 [facility] [address] [place], [place] [phone] 12/24/2024 11:30 AM EST Office Visit Bariatric Surgery - [place] [address] [place] [address] Surekha Don PA [address] [place], [place] [phone] documented as of this encounter Procedures Procedure Name Priority Date/Time Associated Diagnosis Comments AR REPR ANT ABD HERNIA(S) ANY APPR RECUR INCL IMPL < 3 CM INCARCERATED/STRG 12/09/2024 9:21 AM EST Umbilical hernia Case Notes IN PT Special Needs ADMISSION STATUS UPDATED TO INPT VIA PHONE W/ KENZIE PER INSURANCE WR 12/08 TYPE AND SCREEN Routine 12/09/2024 9:20 AM EST documented in this encounter Results * Type and screen (12/09/2024 9:20 AM EST) ABO Group O 12/09/2024 10:42 AM EST [facility] Rh Type Positive 12/09/2024 10:42 AM EST [facility] Antibody Screen Negative 12/09/2024 10:42 AM EST [facility] Blood Venous blood specimen / Unknown Venipuncture / Unknown 12/09/2024 9:20 AM EST 12/09/2024 9:21 AM EST Griffin Aviles MD LAB BLOOD BANK TEST ORDERABLES [facility] [address] [place] [address], documented in this encounter Visit Diagnoses Diagnosis Umbilical hernia- Primary Umbilical hernia without mention of obstruction or gangrene Umbilical hernia Umbilical hernia without mention of obstruction or gangrene documented in this encounter Admitting Diagnoses Diagnosis Umbilical hernia Umbilical hernia without mention of obstruction or gangrene documented in this encounter Administered Medications Inactive Administered Medications - up to 3 most recent administrations Medication Order MAR Action Action Date Dose Rate Site bupivacaine-EPINEPHrine (MARCAINE w/EPI) 0.25 %-1:200,000 injection As needed, Starting on Sat12/09/24 at 0953, Intraprocedure Given 12/09/2024 9:53 AM EST 60 mL documented in this encounter Active and Recently Administered Medications Times are shown in EST. Scheduled Medication Order 12/07/2024 12/08/2024 12/09/2024 acetaminophen (TYLENOL) tablet 650 mg (COMPLETED) 650 mg, oral, Once, On Sat12/09/24 at 1130, For 1 dose, Recovery (only), Scheduled medication for mild pain. Give only if pt. Did not have acetaminophen preop. 1115 (Given - Provid er: Ileana Wayne RN) ceFAZolin (ANCEF) 2 g in sterile water 20 mL IV syringe (COMPLETED) 2 g, intravenous, Administer over 3 Minutes, Once, On Sat12/09/24 at 0830, For 1 dose, Preprocedure, -IV Push over 3 minutes -Administer within 60 minutes of incision, Indication: Prophylaxis-Surgical 0930 (New Bag - Prov ider: Marshal Sinclair CRNA) PRN Medication Order 12/07/2024 12/08/2024 12/09/2024 bupivacaine-EPINEPHrine (MARCAINE w/EPI) 0.25 %-1:200,000 injection (CANCELED) As needed, Starting on Sat12/09/24 at 0953, Intraprocedure 0953 (Given - Provid er: Griffin Aviles MD) oxyCODONE (ROXICODONE) immediate release tablet 5 mg (CANCELED) 5 mg, oral, Every 4 hours PRN, moderate pain or when therapies for mild pain were not effective, Starting on Sat12/09/24 at 1101, For 2 doses, Recovery (only) 1234 (Given - Provid er: Claribel Carcamo RN) documented in this encounter Orders Medications Ordered That Andre ht Not Have Been Administered Count Last Ordered Date First Ordered Date acetaminophen (TYLENOL) tablet 650 mg 1 albuterol 2.5 mg /3 mL (0.08 3 %) nebulizer solution 2.5 mg 1 12/09/2024 ceFAZolin (ANCEF) 2 g in vinnie rile water 20 mL IV syringe 12/09/2024 diphenhydrAMINE (BENADRYL) injection 25 mg 12/09/2024 HYDROmorphone (PF) injection 0.5 mg 1 12/09 lactated Ringer's infusion 12/09/2024 meperidine (PF) (DEMEROL) 25 mg/mL injection 12.5 mg 12/09/2024 ondansetron (PF) (ZOFRAN) injection 4 mg 12/09/2024 ondansetron ODT (ZOFRAN-ODT) disintegrating tablet 4 mg 12/09/2024 oxyCODONE (ROXICODONE) immed iate release tablet 5 mg 1 12/09/2024 prochlorperazine (COMPAZINE) injection 10 mg 1 12/09/2024 prochlorperazine (COMPAZINE) suppository 25 mg 12/09/2024 prochlorperazine (COMPAZINE) tablet 10 mg 1 12/09/2024 Discharge Count Last Ordered Date First Orde red Date DISCHARGE PATIENT 12/09/2024 CORE MEASURES Count Last Ordered Date First Ord ered Date REASON FOR NO VTE PROPHYLAXI S - HOSPITAL ADMISSION - MECHANICAL 12/09/2024 documented in this encounter Care Teams Line Analyst Relationship Specialty Start Date End Date Mary Jo Conteh MD [address] [facility] , [address] [facility] D/B/A: [facility] CARLOS MANUEL Zeng PCP - General Internal Medicine 05/28/18 documented as of this encounter
--- OUTSIDE RECORDS SUMMARY | 2024-12-14 15:12 | XMS_ITS | Encounter Summary ---
Author Organization [email or web address] Address [address] [place] [address] Care Team Providers Care Order Tracer Name Role Phone Mary Jo Conteh MD Primary Care Provider [phone] Reason for Visit * Auth/Cert (Routine) Specialty Diagnoses / Procedures Referred By Suzanne t Referred To Contact Diagnoses Umbilical hernia RECURRENT UMBILICAL HERNIA Procedures MS REPR ANT ABD HERNIA(S) ANY APPR RECUR INCL IMPL < 3 CM INCARCERATED/STRG MS EXPLORATION OF PENETRATING WOUND (SEPARATE PROCEDURE) ABDOMEN/FLANK/BACK MS REMOVAL PROSTHETIC MATERIAL OR MESH ABDOMINAL WALL FOR INFECTION OPEN EXPLORATION UMBILICUS W/REPAIR OF RECURRENT UMBILICAL HERNIA & REMOVAL OF OLD MESH Griffin Aviles MD [address] [address] Referral ID Status Reason Start Date Expiration Date Visits Re quested Visits Authorized [id number] 11/19/2024 1 1 Encounter Details Date Type Department Care Team (Latest Contact Info) Description 12/09/2024 8:08 AM EST - 12/09/2024 1:03 PM EST Hospital Encounter [facility] Main OR [address] [place] [address] Griffin Aviles MD [address] [address] Discharge Disposition: Home or Self Care Social [...] You underwent an exploration of your umbilicus (bellybutton) with Dr. Aviles on 12/09/2024 Diet: Resume [...] sent through Care Everywhere. * General Anesthesia (Maltese) documented in this encounter Medications at Time of Discharge Medication Sig Dispensed Refills Start Date End Date albuterol HFA (Ventolin HFA) 90 mcg/actuation inhaler AMLODIPINE BESYLATE, BULK, MISC Take 20 mg by mouth 1 (one) time each day. ascorbic lilk-hamillov-rgu 1,000 mg powder effervescent in packet Take [...] UMBILICAL HERNIA OPERATIVE NOTE Date: 12/09/2024 Location: [facility] OR Name: Maura Smith, : 1960, Diagnosis Pre-op Diagnosis * Umbilical hernia [K42.9] Post-op Diagnosis * Umbilical hernia [K42.9] Procedures OPEN EXPLORATION UMBILICUS W/REPAIR OF RECURRENT UMBILICAL HERNIA 26134 - MS REPR ANT ABD HERNIA(S) ANY APPR RECUR INCL IMPL < 3 CM INCARCERATED/STRG - MS EXPLORATION OF PENETRATING WOUND (SEPARATE PROCEDURE) ABDOMEN/FLANK/BACK - MS REMOVAL PROSTHETIC MATERIAL OR MESH ABDOMINAL WALL FOR INFECTION Additional Procedures - MS EXPLORATION OF PENETRATING WOUND (SEPARATE PROCEDURE) ABDOMEN/FLANK/BACK - MS REMOVAL PROSTHETIC MATERIAL OR MESH ABDOMINAL WALL FOR INFECTION Indications: Maura Smith is an 64 y.o. female who is having surgery for RECURRENT UMBILICAL HERNIA. The patient has been complaining of abdominal pain. The CT scan was recently done. Theonly abnormality was a small defect at the site of the umbilicus. Surgeon(s) & Application Defense Manager(s) * Griffin Aviles MD - Primary Surekha [...] 8:49 AM EST PT VERBALIZES VIA ARNOL CARLOS MANUEL PACK INTERAsa THAT SHE DOESN'T WANT BLOOD BUT WILL TAKE PLASMA-JUST NO RBC-SHE STATES SHE IS NOT A JEHOVAH BUT BELIEVES IN GOD JEHOVAH- DR VASQUEZ PRESENT AND AWARE * Ileana Agudelo RN - 12/09/2024 8:[address] AVILES AWARE OF PTS C/O HEMTURIA-WILL ORDER C/S ALSO AWARE PT REFUSES BLOOD PRODUCTS * Ileana Agudelo RN - 12/09/2024 8:20 AM EST NIRAJ SANTILLAN [phone] documented in this encounter Plan of Treatment Upcoming Encounters Date Type Department Care Team (Late st Contact Info) Description 12/16/2024 9:20 AM EST Office Visit Gastroenterology - [place] [address] [facility] [address] [place] [phone] Dave Leblanc PA 175 [facility] [address] [place], [place] [phone] 12/24/2024 11:30 AM EST Office Visit Bariatric Surgery - [place] [address] [facility] [address] [place] [phone] Surekha Don PA [address] [facility] [address] [place], [place] [phone] documented as of this encounter Procedures Procedure Name Priority Date/Time Associated Diagnosis Comments MS REPR ANT ABD HERNIA(S) ANY APPR RECUR [...] ABO Group O 12/09/2024 10:42 AM EST [facility] Rh Type Positive 12/09/2024 10:42 AM EST [facility] Antibody Screen Negative 12/09/2024 10:42 AM EST [facility] Blood Venous blood specimen / Unknown Venipuncture / Unknown 12/09/2024 9:20 AM EST 12/09/2024 9:21 AM EST Griffin Aviles MD LAB BLOOD BANK TEST ORDERABLES [facility] [address] [place], [place] [address] [phone] documented in this encounter Visit Diagnoses Diagnosis Umbilical hernia- Primary Umbilical hernia without mention of obstruction or gangrene documented in this encounter Admitting Diagnoses Diagnosis Umbilical hernia Umbilical hernia without mention of obstruction or gangrene documented in this encounter Administered Medications Inactive Administered Medications - up to 3 most recent administrations Medication Order MAR Action Action Date Dose Rate Site acetaminophen (TYLENOL) tablet 650 mg 650 mg, oral, Once, On Sat12/09/24 at 1130, For 1 dose, Recovery (only), Scheduled medication for mild pain. Give only if pt. Did not have acetaminophen preop. Given 12/09/2024 11:15 AM EST 650 mg oxyCODONE (ROXICODONE) immediate release tablet 5 mg 5 mg, oral, Every 4 hours PRN, moderate pain or when therapies for mild pain were not effective, Starting on Sat12/09/24 at 1101, For 2 doses, Recovery (only) Given 12/09/2024 12:34 PM EST 5 mg documented in this encounter Active and Recently [...] Count Last Ordered Date First Ordered Date albuterol 2.5 mg /3 mL (0.08 3 %) nebulizer solution 2.5 mg 1 12/09/2024 bupivacaine-EPINEPHrine (MAR MESSI w/EPI) 0.25 %-1:200,000 injection 1 12/09/2024 ceFAZolin (ANCEF) 2 g in mely rile water 20 mL IV syringe 1 12/09/2024 diphenhydrAMINE (BENADRYL) injection 25 mg 1 12/09/2024 HYDROmorphone (PF) injection 0.5 mg 1 12/09 lactated Ringer's infusion 12/09/2024 meperidine (PF) (DEMEROL) 25 mg/mL injection 12.5 mg 1 12/09/2024 ondansetron (PF) (ZOFRAN) injection 4 mg 1 12/09/2024 ondansetron ODT (ZOFRAN-ODT) disintegrating tablet 4 mg 1 12/09/2024 prochlorperazine (COMPAZINE) injection 10 mg 1 12/09/2024 prochlorperazine (COMPAZINE) suppository 25 mg 1 12/09/2024 prochlorperazine (COMPAZINE) tablet 10 mg 1 12/09/2024 Discharge Count Last Ordered Date First Orde red Date DISCHARGE PATIENT 12/09/2024 CORE MEASURES Count Last Ordered Date First Ord ered Date REASON FOR NO VTE PROPHYLAXI S - HOSPITAL ADMISSION - MECHANICAL 12/09/2024 documented in this encounter Care Teams Order Tracer Relationship Specialty Start Date End Date Mary Jo Conteh MD [address] [place] [address] , [address] [facility] Physician Associ D/B/A: [facility] CARLOS MANUEL Zeng PCP - General Internal Medicine 05/28/18 documented as of this encounter
== END 2024-12-14 11:24 | disposition home or self-care (01) ==
PROVIDERS: PCP Internal Medicine; Visit Provider Internal Medicine Gastroenterology
DX: K21.9 Gastro-esophageal reflux disease without esophagitis (principal)
CPT/HCPCS: 99214

== ENCOUNTER → 2024-12-14 10:28 | Outpatient (BNVA) | payer OTHER, SELFPAY | PROVIDERS: PCP Internal Medicine; Visit Provider Internal Medicine Gastroenterology | DX: K21.9 Gastro-esophageal reflux disease without esophagitis (principal); R30.0 Dysuria; R10.9 Unspecified abdominal pain; R31.9 Hematuria, unspecified | CPT/HCPCS: 99212 ==

== ENCOUNTER 2024-12-25 14:45 | Outpatient (AMB) ==
--- NOTE | 2024-12-25 14:55 | MHC.OFFVIS ---
Vital Signs 12/25/24 14:57 Height 5 ft 1 in Weight 154 lb BMI 29.1 Intake Visit Reasons: ultrasound follow up Clean In Places Operator Required: Yes Clean In Places Operator Language: Floorworker Services: Clean In Places Operator Present (in person) Clean In Places Operator Name: Tania WILKERSON Information Interpreted: non-clinical & clinical Accompanied by: Self / Same As Patient Allergies phentermine Allergy (Intermediate, Verified 12/25/24 14:58) Palpitations HPI Comments Details: Presenting for follow-up regarding her pelvic pain. The patient is doing well. The following workup was done so far: GC/CT negative. Last visit urine dip showed microscopic hematuria, urine culture was negative, the patient has history of interstitial cystitis. Pelvic ultrasound showed the following: Uterus: The uterus is normal in size, measuring 5.0 x 2.7 x 4.1 cm. The myometrial echotexture is heterogeneous. There are multiple hyperechoic foci within the myometrium, suggestive of calcified fibroids. Endometrium: The endometrial stripe measures 2 mm in thickness. Right ovary: The right ovary is not identified. Left ovary: The left ovary is not identified. Pelvic fluid: none. [facility] Medical History Enlarged thoracic aorta Intussusception Hepatomegaly Needle exposure Microscopic hematuria Murmur Frequent UTI Iron deficiency anemia Dysuria Labile blood glucose Anemia Dyslipidemia Pernicious anemia Pre-op examination Cervicalgia of rzaeprbr-satwxea-lmbse region Vitamin D deficiency Osteoporosis 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 Asthma Paget's disease Fibromyalgia Nontoxic multinodular goiter Osteoarthritis HTN (hypertension) Surgical History History of excision of mass (08/21/23) History of removal of laparoscopic gastric banding device History of cystoscopy History of lobectomy of thyroid Mass of right parotid gland H/O laparoscopic adjustable gastric banding Hx of lithotripsy History of dilation and curettage History of delivery Hx of tonsillectomy Hx of gastric bypass Family History Mother Diabetes HTN (hypertension) Father Pancreatic cancer Diabetes HTN (hypertension) Maternal Grandmother Myocardial infarction Cancer Brother Pancreatic cancer Sister Uterine cancer Social History Household Members: Family Housing: House Are you a primary customer care professional to a significant other at home: No Do you presently have visiting nurse or other home services: No Alcohol intake: never Patient Tobacco Use Status: Former Tobacco user Tobacco use type: Cigarette e-Cigarette/Vaping Use: Never Used Second Hand Smoke Exposure: No service: No Current occupational status: unemployed and disabled Sexual orientation: Straight/Heterosexual Gender identity: Female Cognitive needs: No Hearing needs: No Vision needs: Yes (glasses) Female Reproductive History Menstrual Age of Menarche: 10 Review of Systems Const All systems reviewed & are unremarkable except as noted in HPI and below Reports as per HPI and Reports no additional complaints GI Reports no additional complaints Reports no additional complaints Physical Exam Vital Signs: BMI result Body Mass Index 29.1 Assessment & Plan Assessment & Plan (1) Pelvic pain in female: Code(s): R10.2 - Pelvic and perineal pain Category: Medical Plan: Discussed with the patient the results of the workup done including negative GC/chlamydia, urine dip showing microscopic hematuria with negative urine culture and history of interstitial cystitis and pelvic ultrasound results. Differential diagnosis of salesperson used cars causes that have not be ruled out yet include but not limited to pelvic adhesions , or other. Recommended for the patient to see her PCP for further workup for non salesperson used cars causes; if the all the results are negative and the patient's pelvic pain is persistent, instructions given to patient to call back for further testing. Meanwhile, instructions were given the patient to go to emergency room or call in case of fever above 100.4, heavy vaginal bleeding, persistence or worsening of her pelvic pain. All questions answered, the patient verbalized understanding. (2) Microscopic hematuria: Comment: History of interstitial cystitis Code(s): R31.29 - Other microscopic hematuria Category: Medical Plan: Repeat urine dip showed no evidence of microscopic hematuria Urine culture was negative. The patient was reassured and encouraged to follow-up with her urologist for interstitial cystitis Coding Level of Care Code Est Pt Level 3 (52408) Diagnoses Pelvic pain in female R10.2 Microscopic hematuria R31.29
[2024-12-25 14:57] VITALS: BMI 29.1
== END 2024-12-25 15:25 | disposition home or self-care (01) ==
LOC: HO.HWS 14:45
DX: R10.2 Pelvic and perineal pain (principal); R31.29 Other microscopic hematuria
CPT/HCPCS: 99213

== ENCOUNTER → 2024-12-25 14:45 | Outpatient (BNVA) | payer OTHER, SELFPAY | PROVIDERS: PCP Internal Medicine; Visit Provider Obstetrics & Gynecology | DX: R10.2 Pelvic and perineal pain (principal); R31.29 Other microscopic hematuria | CPT/HCPCS: 99212 ==

== ENCOUNTER 2025-01-29 10:11 | Outpatient (AMB) | payer OTHER, SELFPAY ==
--- NOTE | 2025-01-29 10:19 | A.OFFVIS_ITS ---
Intake Visit Reasons: 4 month follow up Intake Note: Patient presents to office today for 4 month follow up Urology Medication:Pyridium Antibiotic Allergy:NONE Blood Thinner:NONE PVR:0ml Science Job Titles Required: Yes Science Job Titles Name: [id number], [id number] Information Interpreted: non-clinical & clinical Allergies phentermine Allergy (Intermediate, Verified 01/29/25 10:23) Palpitations HPI Comments Details: 01/29/25-- History of Present Illness The patient is a 64-year-old female presenting with chronic interstitial cystitis and a recent urinary tract infection. She has been under continuous urological care for interstitial cystitis, undergoing bladder instillations of lidocaine and heparin. Previously maintained on a monthly schedule, these instillations are now being adjusted for better symptom management. Presenting to the emergency department recently for urinary symptoms, she was treated for an infection and has nearly completed a prescribed antibiotic course. Today, the patient reports gastrointestinal issues linked to recent gabapentin use, leading to self-discontinuation of the medication. Serial urinary assessments show infection resolution, indicating treatment efficacy. Urinary Symptoms Review - Bladder instillations with lidocaine and heparin previously monthly - Adjusted to every two weeks to manage symptoms - Recent urinary tract infection treated with 7 days of antibiotics - Current urinalysis shows no infection Review of Systems - Gastrointestinal: Reports discomfort with gabapentin - Genitourinary: Denies current urinary symptoms after antibiotic treatment Review of Systems Const All systems reviewed & are unremarkable except as noted in HPI and below Reports no additional complaints Eyes Reports no additional complaints ENT Reports no additional complaints Card Reports no additional complaints Resp Reports no additional complaints GI Reports no additional complaints Reports as per HPI Musc Reports no additional complaints Skin/Breast Reports system reviewed and no additional complaints, except as documented Neuro Reports no additional complaints Psych Reports no additional complaints Endo Reports no additional complaints Moses/Lymph Reports no additional complaints Aller/Immun Reports no additional complaints Physical Exam General: Cooperative, healthy appearing and no acute distress Orientation and Consciousness: Patient oriented x3 Head: Yes normal to inspection, Yes normocephalic and Yes atraumatic Eyes: Conjunctivae normal Neck: Yes normal visual inspection and Yes trachea midline Chest: Normal inspection of the chest Respiratory: Normal respiratory effort GI: Discomfort noted, patient reports GI discomfort : Neuro: Patient oriented x3 Extremities: Skin: Psych: Appearance grossly normal Results - Tests and Diagnostics: Urinalysis today showing no signs of infection Plan Bladder instillation treatments for chronic interstitial cystitis have been adjusted to bi-weekly to enhance patient comfort and symptom control, with plans to eventually return to a monthly maintenance schedule. The recent urinary tract infection has resolved following antibiotic therapy. The patient is advised to discontinue gabapentin due to gastrointestinal discomfort. A scheduled follow-up in six months will monitor therapeutic efficacy and patient response, adjusting interventions as necessary. Patient was informed and verbally consented to the use of an ambient scribe for clinic note documentation during this visit. Discussion Notes I discussed the patient's ongoing treatment plan for chronic interstitial cystitis involving bi-weekly bladder instillations, which will be gradually adjusted toward a monthly maintenance schedule. We reviewed the successful resolution of her recent urinary tract infection and the completion of antibiotic treatment. Consent was obtained for the adjusted instillation schedule with explanation of potential benefits and expected outcomes. The patient was advised on discontinuing gabapentin due to side effects and is encouraged to report any return of symptoms or side effects from ongoing treatments. A six-month follow-up is advised to evaluate treatment effectiveness and adjust her care plan accordingly. Patient Instructions - Continue bladder instillations bi-weekly and monitor symptom improvement - Complete the current antibiotic course for urinary tract infection - Discontinue gabapentin due to gastrointestinal discomfort - Follow-up appointment scheduled in six months for assessment and treatment evaluation - Report any recurrent urinary symptoms or side effects promptly 09/28/24--Maura is a 64-year-old female with chronic interstitial cystitis. Last cystoscopy hydrodistention was on 12/24/2023. IC management has included bladder instillations.She was started on gabapentin 100 mg bid which she states has helped but she still has bladder pain. Discussed continuing bladder instillai tons, increase gabapentin to 300 bid. 03/30/24--Maura is a 63-year-old female with chronic interstitial cystitis. Status post repeat cystoscopy hydrodistention on 12/24/2023. She states that urinary symptoms are improved. She still does get a flare of bladder pain intermittently. Will continue hydroxyzine. Will resume bladder installations every 2 weeks x3 and then maintenance once a month to once every 6 weeks, cont vaginal estrogen therapy, follow-up with me in 6 months. 12/02/23--Maura is a 62-year-old female who presents today to the office for FU, she was in the ED on 11/27/23 with complaints of abdominal, bladder pain and hematuria. She previously had a CTAP w/contrast done on 11/09/23 - and in regards to urinary tract; right kidney changes suggestive of focal pyelonephritis, negative for nephrolithiasis 07/10/2023? Maura is followed today for bladder pain. She was last seen by me on 03/25/2023 for bladder pain. Discussed weekly bladder installations for 4 weeks, then every 2 weeks and Vagifem suppository twice a week was ordered at that time. She has a history of diabetes and gastric bypass. She had noted improvement with the bladder instillations. She has not had a bladder instillation since 05/17/2023 and is complaining that the bladder pressure pain is back. She states that the hydroxyzine did not help her and seem to cause more burning with urination. 03/25/2023? The patient is Maori speaking female. 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 LV--12/06/22-- seen in the office for recurrent UTIs. Comorbidity diabetes. h/o Gastric bypass prior cardiology for evaluation for tachycardia.? also states she needed to have a breast biopsy done s/p cystoscopy hydrodistension- findings bladder capacity 700 mL, no glomerulations visualized previous pelvic exam, point bladder tenderness--treated with Vistaril 25 mg qhs.? and Bladder instillations weekly for 6 weeks, then maintenance q month Imagin05/17/22--CT ABDOMEN AND PELVIS WITH CONTRAST-- kidneys wnl, no renal calculi?? [facility] Medical History Enlarged thoracic aorta Intussusception Hepatomegaly Needle exposure Microscopic hematuria Murmur Frequent UTI Iron deficiency anemia Dysuria Labile blood glucose Anemia Dyslipidemia Pernicious anemia Pre-op examination Cervicalgia of ajmhkjyv-adjknpt-utbba region Vitamin D deficiency Osteoporosis 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 Asthma Paget's disease Fibromyalgia Nontoxic multinodular goiter Osteoarthritis HTN (hypertension) Surgical History History of excision of mass (08/21/23) History of removal of laparoscopic gastric banding device History of cystoscopy History of lobectomy of thyroid Mass of right parotid gland H/O laparoscopic adjustable gastric banding Hx of lithotripsy History of dilation and curettage History of delivery Hx of tonsillectomy Hx of gastric bypass Family History Mother Diabetes HTN (hypertension) Father Pancreatic cancer Diabetes HTN (hypertension) Maternal Grandmother Myocardial infarction Cancer Brother Pancreatic cancer Sister Uterine cancer Social History Household Members: Family Housing: House Are you a primary special needs caregiver to a significant other at home: No Do you presently have visiting nurse or other home services: No Alcohol intake: never Patient Tobacco Use Status: Former Tobacco user Tobacco use type: Cigarette e-Cigarette/Vaping Use: Never Used Second Hand Smoke Exposure: No service: No Current occupational status: unemployed and disabled Sexual orientation: Straight/Heterosexual Gender identity: Female Cognitive needs: No Hearing needs: No Vision needs: Yes (glasses) Female Reproductive History Menstrual Age of Menarche: 10 Review of Systems Const All systems reviewed & are unremarkable except as noted in HPI and below Reports no additional complaints Eyes Reports no additional complaints ENT Reports no additional complaints Card Reports no additional complaints Resp Reports no additional complaints GI Reports no additional complaints Reports as per HPI Musc Reports no additional complaints Skin/Breast Reports system reviewed and no additional complaints, except as documented Neuro Reports no additional complaints Psych Reports no additional complaints Endo Reports no additional complaints Moses/Lymph Reports no additional complaints Aller/Immun Reports no additional complaints Office Procedures Post Void Residual Post Residual Void Post Void Residual (PVR): 0 [id number] Void Residual by ultrasound Results AMB Urinalysis, Automated UA Leukoctes 15 Denilson/uL Last Edit by Carline Andino on 01/29/25 10:55 UA Nitrite Negative Last Edit by Carline Andino on 01/29/25 10:55 UA Urobilinogen 17 mg/dL Last Edit by Carline Andino on 01/29/25 10:55 UA Protein 0.3 mg/dL Last Edit by Carline Andino on 01/29/25 10:55 UA pH 6.0 Last Edit by Carline Andino on 01/29/25 10:55 UA Blood 25 Brady/uL Last Edit by Carline Andino on 01/29/25 10:55 UA Specific [place] 1.020 Last Edit by Carline Andino on 01/29/25 10:55 UA Ketone Positive Last Edit by Carline Andino on 01/29/25 10:55 UA Bilirubin 17 mg/dL Last Edit by Carline Andino on 01/29/25 10:55 UA Glucose 0 mg/dL Last Edit by Carline Andino on 01/29/25 10:55 Results Reviewed Results Reviewed: Laboratory Last Values Urine pH (Auto) 6.0 01/29/25 10:44 Specific [place] (Auto) 1.020 01/29/25 10:44 Urine Protein (Auto) 0.3 mg/dL 01/29/25 10:44 Glucose (UA)(Auto) 0 mg/dL 01/29/25 10:44 Urine Ketones (Auto) Positive 01/29/25 10:44 Urine Blood (Auto) 25 Brady/uL 01/29/25 10:44 Urine Nitrite (Auto) Negative 01/29/25 10:44 Urine Bilirubin (Auto) 17 mg/dL 01/29/25 10:44 Urine Urobilinogen (Auto) 17 mg/dL 01/29/25 10:44 Leukocyte Esterase (Auto) 15 Denilson/uL 01/29/25 10:44 Assessment & Plan Assessment & Plan (1) Microscopic hematuria: Comment: History of interstitial cystitis Code(s): R31.29 - Other microscopic hematuria Category: Medical (2) Frequent UTI: Code(s): N39.0 - Urinary tract infection, site not specified Category: Medical (3) Interstitial cystitis: Code(s): N30.10 - Interstitial cystitis (chronic) without hematuria Category: Medical (4) Bladder pain: Code(s): R39.89 - Other symptoms and signs involving the genitourinary system Category: Medical Orders: Orders AMB Urinalysis Automated Today Z13.9 - Encounter for screening, unspecified Coding Diagnoses Microscopic hematuria R31.29 Frequent UTI N39.0 Interstitial cystitis N30.10 Bladder pain R39.89 CPT Codes Post Residual Void - PVR CPT Code: 18434-Irdw Void Residual by ultrasound ([id number])
--- OUTSIDE RECORDS SUMMARY | 2025-01-29 11:28 | XMS_ITS | Encounter Summary ---
Author Organization [facility] Address [address] [place] [address] Care Team Providers Care Regulatory Affairs Assistant Name Role Phone Mary Jo Conteh MD Primary Care Provider [phone] Reason for Visit * Reason Comments Flank Pain Bilateral flank pain , decreased urine output, concentrated urine for a long time. Encounter Details Date Type Department Care Team (Late st Contact Info) Description 01/26/2025 6:31 PM EDT - 01/26/2025 10:56 PM EDT Emergency [facility] Emergency [address] [place] [id number] Chaz Jose MD [address] [place] [address] Urinary tract infection without hematuria, site unspecified (Primary Dx); Constipation, unspecified constipation type; Nausea and vomiting, unspecified vomiting type Discharge Disposition: Home or Self Care Social History Tobacco Use Types Packs/Day Years Used Date Smoking Tobacco: Former Cigarettes Smokeless Tobacco: Never Alcohol Use Standard Drinks/Week Comments No 0 (1 standard drink = 0.6 oz pur e alcohol) Comments Unknown Sex and Gender Information Value Date Recorded Sex Assigned at Female 10/14/2024 7:16 PM EST Legal Sex Female 12:24 AM EST Gender Identity Female 10/14/2024 7:16 PM EST Sexual Orientation Straight 10/14/2024 7: 16 PM EST documented as of this encounter Last Filed Vital Signs Vital Sign Reading Time Taken Comments Blood Pressure 162/90 01/26/2025 6:22 PM EDT Pulse 85 01/26/2025 6:22 PM EDT Temperature 36.6 ??C (97.9 ??F) 01/26/2025 6:22 PM ED T Respiratory Rate 18 01/26/2025 6:22 PM EDT Oxygen Saturation 100% 01/26/2025 6:22 PM EDT Inhaled Oxygen Concentration - - Weight 72.1 kg (159 lb) 01/26/2025 6:22 PM EDT Height 152.4 cm (5') 01/26/2025 6:22 PM EDT Body Mass Index 31.05 01/26/2025 6:22 PM EDT documented in this encounter Discharge Instructions * Discharge Instructions* LILIAM Valdiiva - 01/26/2025 10:36 PM EDT Follow-up with urine culture * Attachments The following attachments cannot be sent through Care Everywhere. * Constipation (Thai) * UTI (Urinary Tract Infection): Female (Thai) documented in this encounter Medications at Time of Discharge acetaminophen (TYLENOL) 500 mg tablet Take 2 tablets (1,000 mg total) by mouth every 6 (six) hours if needed for mild pain for up to 30 doses. 30 tablet 12/09/2024 albuterol HFA (Ventolin HFA) 90 mcg/actuation inhaler AMLODIPINE BESYLATE, BULK, MISC Take 20 mg by mouth 1 (one) time each day. ascorbic [id number] 1,000 mg powder effervescent in packet Take by mouth. cephalexin (KEFLEX) 500 mg capsule Take 1 capsule (500 mg total) by mouth 3 (three) times a day for 7 days. 21 each 01/26/2025 02/03/20 25 cholecalciferol (VITAMIN D-3) 1,250 mcg (50,000 unit) [...] topically 1 (one) time each day. 06/25/2018 ondansetron ODT (ZOFRAN-ODT) 4 mg disintegrating tabletIndications:N ausea and vomiting, unspecified vomiting type Let 1 tablet dissolve under the tongue three times daily as needed for nausea or vomiting. 10 tablet 01/26/2025 02/03/20 25 oxyCODONE (ROXICODONE) 5 mg immediate release tablet Take 1 tablet (5 mg total) by mouth every 6 (six) hours if needed for severe pain. Max Daily Amount: 20 mg 15 tablet 12/09/2024 phentermine 15 mg capsule Take 1 Capsule by mouth every morning for 30 days. 03/24/2024 magnesium citrate solution Take 148 mL by mouth 1 (one) time for 1 dose. 148 mL 01/26/2025 01/27/20 25 documented as of this encounter Ordered Prescriptions Prescription Sig Dispense Quantity Refills Last Filled Start Date End Date cephalexin (KEFLEX) 500 mg capsule Take 1 capsule (500 mg total) by mouth 3 (three) times a day for 7 days. 21 each 01/26/2025 5 ondansetron ODT (ZOFRAN-ODT) 4 mg disintegrating tabletIndications:Na usea and vomiting, unspecified vomiting type Let 1 tablet dissolve under the tongue three times daily as needed for nausea or vomiting. 10 tablet 01/26/2025 5 magnesium citrate solution Take 148 mL by mouth 1 (one) time for 1 dose. 148 mL 01/26/2025 5 documented in this encounter Discharge Disposition Disposition Code Departure Means Destination Comment s Home or Self Care documented in this encounter Progress Notes * Federico Bullard RN - 01/26/2025 6:24 PM EDT Pt arrives steady even gait c/o bilateral flank pain x 2 months. Pt c/o dark straw color urine withan odd odor and oliguria x 2 months. Pt states she does not see a urologist and states no call to PCP. Denies hematuria. * LILIAM Valdivia - 01/26/2025 6:07 PM EDT Emergency Medicine Note Patient Name: Maura Smith Initial Evaluation: 01/26/2025 : 1960 Patient's PCP: Mary Jo Conteh MD Emergency Physician: LILIAM Valdivia History of Present Illness Chief Complaint: Chief Complaint Patient presents with Flank Pain Bilateral flank pain, decreased urine output, concentrated urine for a long time. HPI: 64-year-old female here today complaining of bilateral flank pain with decreased urine output. States it has been for the past 3 weeks. She is nauseous and vomiting. States it radiates to her abdomenon both sides. Denies any fevers or any chills. Any chest pain or respiratory distress ROS: I have performed a ROS with the pertinent positives and negatives documented in the history ofpresent illness. Previous History Past Medical History: Diagnosis Date Arthritis Asthma [...] BANDING REMOVAL 1-2 YRS AGO PER PT Social History Tobacco Use Smoking status: Former Types: Cigarettes Smokeless tobacco: Never Substance Use Topics Alcohol use: No Drug use: Never Family History Problem Relation Name Age of Onset Diabetes Mother Hypertension Mother Hyperlipidemia Mother has No Known Allergies. No current facility-administered medications on file prior to encounter. Current Outpatient Medications on File Prior to Encounter Medication Sig Dispense Refill acetaminophen (TYLENOL) 500 mg tablet Take 2 tablets (1,000 mg total) by mouth every 6 (six) hours if needed for mild pain for up to 30 doses. 30 tablet 0 albuterol HFA (Ventolin HFA) 90 mcg/actuation inhaler AMLODIPINE BESYLATE, BULK, MISC Take 20 mg by mouth 1 (one) time each day. ascorbic [id number] 1,000 mg powder effervescent in packet Take [...] Application topically 1 (one) time each day. oxyCODONE (ROXICODONE) 5 mg immediate release tablet Take 1 tablet (5 mg total) by mouth every 6 (six) hours if needed for severe pain. Max Daily Amount: 20 mg 15 tablet 0 phentermine 15 mg capsule Take 1 Capsule by mouth every morning for 30 days. Physical Exam ED Triage Vitals [01/26/25 1822] Temp Heart Rate Resp BP 36.6 ??C (97.9 ??F) 85 18 (!) 162/90 SpO2 Temp Source Heart Rate Source Patient Position 100 % Oral Other (Comment) Sitting BP Location FiO2 (%) Right arm;Upper -- Physical Exam Vitals and nursing note reviewed. Constitutional: Appearance: Normal appearance. HENT: Head: Normocephalic. Nose: Nose normal. Eyes: Extraocular Movements: Extraocular movements intact. Cardiovascular: Rate and Rhythm: Normal rate and regular rhythm. Pulmonary: Effort: Pulmonary effort is normal. Breath sounds: Normal breath sounds. Abdominal: Palpations: Abdomen is soft. Tenderness: There is abdominal tenderness. Comments: Diffuse tenderness upper abdomen mid abdomen throughout. No peritoneal signs noted. Tender CVA bilaterally. Musculoskeletal: General: Normal range of motion. Cervical back: Normal range of motion. Skin: General: Skin is warm. Neurological: General: No focal deficit present. Mental Status: She is alert and oriented to person, place, and time. Psychiatric: Mood and Affect: Mood normal. Behavior: Behavior normal. Results Labs Reviewed COMPREHENSIVE METABOLIC PANEL - Abnormal Result Value Sodium 142 Potassium 3.7 Chloride 108 CO2 23 Anion Gap 11 Glucose 111 (*) BUN 17 Creatinine 0.67 eGFR 97 BUN/Creatinine Ratio 25.4 Calcium 9.2 AST (SGOT) 21 ALT (SGPT) 18 Alkaline Phosphatase 101 Total Protein 7.0 Albumin 3.4 Total Bilirubin 0.2 CBC WITH AUTO DIFFERENTIAL - Abnormal WBC 6.8 RBC 3.30 (*) Hemoglobin 7.8 (*) Hematocrit 26.1 (*) MCV 80.3 MCH 24.0 (*) MCHC 29.9 (*) RDW 17.1 (*) Platelets 451 (*) MPV 10.1 NRBC 0.0 NRBC Absolute 0.00 Neutrophils Relative 77.2 Lymphocytes Relative 15.1 Monocytes Relative 5.7 Eosinophils Relative 1.0 Basophils Relative 0.4 Immature Granulocytes Relative 0.6 Neutrophils Absolute 5.26 Lymphocytes Absolute 1.03 Monocytes Absolute 0.39 Eosinophils Absolute 0.07 Basophils Absolute 0.03 Immature Granulocytes Absolute 0.04 (*) URINALYSIS WITH REFLEX MICROSCOPIC AND CULTURE - Abnormal Specific [place] Urine 1.017 pH, Urine 6.0 Leukocytes, Urine Trace (*) Nitrite, Urine Negative Protein, Urine Negative Glucose, Urine Negative Ketones, Urine Negative Urobilinogen, Urine 0.2 Bilirubin, Urine Negative Blood, Urine Negative RBC, Urine 5.8 (*) WBC, Urine 3.8 Squamous Epithelial, Urine 59 Bacteria, Urine Moderate (*) Hyaline Casts, Urine 1.2 CULTURE URINE CBC AND DIFFERENTIAL Narrative: The following orders were created for panel order CBC and differential. Procedure Abnormality Status --------- ------ CBC auto differential[[id number]] Abnormal Final result Please view results for these tests on the individual orders. URINALYSIS WITH REFLEX MICROSCOPIC AND CULTURE Narrative: The following orders were created for panel order Urinalysis with reflex microscopic and culture. Procedure Abnormality Status --------- ------ Urinalysis with reflex ...[[id number]] Abnormal Final result Rebolledo urine culture tube[[id number]] Final result Please view results for these tests on the individual orders. Abnormal Labs Reviewed COMPREHENSIVE METABOLIC PANEL - Abnormal; Notable for the following components: Result Value Glucose 111 (*) All other components within normal limits CBC WITH AUTO DIFFERENTIAL - Abnormal; Notable for the following components: RBC 3.30 (*) Hemoglobin 7.8 (*) Hematocrit 26.1 (*) MCH 24.0 (*) MCHC 29.9 (*) RDW 17.1 (*) Platelets 451 (*) Immature Granulocytes Absolute 0.04 (*) All other components within normal limits URINALYSIS WITH REFLEX MICROSCOPIC AND CULTURE - Abnormal; Notable for the following components: Leukocytes, Urine Trace (*) RBC, Urine 5.8 (*) Bacteria, Urine Moderate (*) All other components within normal limits CT Abdomen Pelvis w Contrast Final Result 1. No nephrolithiasis or hydronephrosis. 2. Moderate stool burden greatest the proximal colon which may represent constipation. 3. Gastric bypass. 4. Intrahepatic/extrahepatic biliary ductal dilatation likely related to prior cholecystectomy. 5. A few tiny locules of air within the ventral margin of the urinary bladder. Recommend correlating with urinary analysis to exclude cystitis. This document has been electronically signed by: Mulugeta Figueroa DO on 01/26/2025 21:44:06 I have discussed the incidental/abnormal imaging and/or lab abnormalities with the patient and haveinstructed them the need for further evaluation and workup with their primary care doctor. I have provided the patient with a paper copy of the abnormality. The laboratory results, imaging results and other diagnostic exam results were reviewed in the EMR. EKG Interpretation Critical Care Time None ? Differential Diagnosis Nephritis UTI Colitis Renal stone Muscle strain Viral syndrome Medical Decision Making Patient ordered 1 L of normal saline 4 mg IV Zofran 15 mg IV of Toradol labs and CT of abdomen pelvis pending. CT positive for constipation. WBCs trace noted. Will start her on antibiotics and mag citrate and some nausea medicine and she will follow-up outpatient with her primary care doctor Medications ondansetron ODT (ZOFRAN-ODT) disintegrating tablet 4 mg (has no administration in time range) cephalexin (KEFLEX) capsule 500 mg (has no administration in time range) oxyCODONE (ROXICODONE) immediate release tablet 5 mg (has no administration in time range) sodium chloride 0.9 % bolus 1,000 mL (1,000 mL intravenous New Bag 01/26/252043) ondansetron (PF) (ZOFRAN) injection 4 mg (4 mg intravenous Given 01/26/252035) HYDROmorphone (DILAUDID) injection 0.5 mg (0.5 mg intravenous Given 01/26/252038) sodium chloride 0.9 % flush 10 mL (10 mL intravenous Given 01/26/252058) iopamidoL (ISOVUE-370) 370 mg iodine /mL (76 %) injection 100 mL (90 mL intravenous Given 01/26/252058) Clinical Impressions as of 01/26/252237 Urinary tract infection without hematuria, site unspecified Constipation, unspecified constipation type Nausea and vomiting, unspecified vomiting type Amount and/or Complexity of Data Reviewed External Data Reviewed: Encounters reviewed in Chart Review. Details: Labs: ordered. Decision-making details documented in ED Course. Radiology: ordered. Decision-making details documented in ED Course. ECG/medicine tests: ordered. Decision-making details documented in ED Course. Procedures Procedures Diagnosis 1. Urinary tract infection without hematuria, site unspecified 2. Constipation, unspecified constipation type 3. Nausea and vomiting, unspecified vomiting type ondansetron ODT (ZOFRAN-ODT) 4 mg disintegrating tablet Disposition Discharge ED Prescriptions Medication Sig Dispense Start Date End Date Auth. Provider magnesium citrate solution (Expires today) Take 148 mL by mouth 1 (one) time for 1 dose. 148 mL 01/26/2025 01/26/2025 LILIAM Valdivia ondansetron ODT (ZOFRAN-ODT) 4 mg disintegrating tablet Let 1 tablet dissolve under the tongue three times daily as needed for nausea or vomiting. 10 tablet 01/26/2025 02/02/2025 LILIAM Valdivia cephalexin (KEFLEX) 500 mg capsule Take 1 capsule (500 mg total) by mouth 3 (three) times a day for7 days. 21 each 01/26/2025 02/02/2025 LILIAM Sánchez Physician Attestation LILIAM Valdivia 01/26/251925 LILIAM Valdivia 01/26/251942 LILIAM Valdivia 01/26/252233 LILIAM Valdivia 01/26/252237 Cosigned by Chaz Jose MD at 01/26/2025 10:51 PM EDT Associated attestation - Chaz Jose MD - 01/26/2025 10:51 PM EDT This is a split/shared visit with LILIAM Valdivia. I personally performed the medical decision making (MDM) for the care of this patient on 01/26/2025 as documented below 64-year-old female presents for bilateral flank pain for several weeks. Abdomen diffusely tender upper greater than lower. No peritonitis on exam. CT abdomen shows constipation. Treat symptomaticallywith cleanout, follow-up outpatient. Chaz Jose MD 01/26/25 10:51 PM EDT documented in this encounter Plan of Treatment Not on file documented as of this encounter Procedures Procedure Name Priority Date/Time Associated Diagnosis Comments CT ABDOMEN PELVIS W CONTRAST STAT 01/26/2025 9:04 PM EDT CBC WITH AUTO DIFFERENTIAL STAT 01/26/2025 7:27 PM EDT CBC AND DIFFERENTIAL STAT 01/26/2025 7:27 PM EDT COMPREHENSIVE METABOLIC PANEL STAT 01/26/2025 7:27 PM EDT URINALYSIS WITH REFLEX MICROSCOPIC AND CULTURE STAT 01/26/2025 7:15 PM EDT REBOLLEDO URINE CULTURE TUBE STAT 01/26/2025 7:15 PM EDT URINALYSIS WITH REFLEX MICROSCOPIC AND CULTURE STAT 01/26/2025 7:15 PM EDT CULTURE URINE STAT 01/26/2025 7:15 PM EDT documented in this encounter Results * CT Abdomen Pelvis w Contrast (01/26/2025 9:04 PM EDT) Anatomical Region Laterality Modality Body Computed Tomogra phy 01/26/2025 9:44 PM EDT Impressions 01/26/2025 9:44 PM EDT 1. No nephrolithiasis or hydronephrosis. 2. Moderate stool burden greatest the proximal colon which may represent constipation. 3. Gastric bypass. 4. Intrahepatic/extrahepatic biliary ductal dilatation likely related to prior cholecystectomy. 5. A few tiny locules of air within the ventral margin of the urinary bladder. Recommend correlating with urinary analysis to exclude cystitis. This document has been electronically signed by: Mulugeta Figueroa DO on 01/26/2025 21:44:06 Narrative 01/26/2025 9:44 PM EDT INDICATION: Flank pain, kidney stone suspected CT abdomen and pelvis with contrast Comparison: CT - CT ABDOMEN PELVIS W CONTRAST - 10/14/24 20:35 EST Findings: The heart size is borderline enlarged. Subsegmental atelectasis of the lung bases. Gastric bypass. Atherosclerosis of the abdominal aorta which extends into the iliac vasculature. Surgical clips within the subcutaneous fat of the lower ventral abdominal wall. Hepatic parenchyma is unremarkable. Intrahepatic/extrahepatic biliary ductal dilatation likely related to prior cholecystectomy. Pancreatic atrophy. The spleen and bilateral adrenal glands are normal. No nephrolithiasis or hydronephrosis. A few tiny locules of air within the ventral margin of the bladder. Recommend correlating with urinary analysis to exclude cystitis. A partially anteverted uterus. Mild colonic fecal burden at the level of the distal rectum. No bowel obstruction, pneumoperitoneum, or pneumatosis. Moderate stool burden greatest the proximal colon which may represent constipation. Normal appendix. Degenerative changes of the lumbar spine. Procedure Note Mulugeta Figueroa MD - 01/26/2025 INDICATION: Flank pain, kidney stone suspected CT abdomen and pelvis with contrast Comparison: CT - CT ABDOMEN PELVIS W CONTRAST - 10/14/24 20:35 EST Findings: The heart size is borderline enlarged. Subsegmental atelectasis of the lung bases. Gastric bypass. Atherosclerosis of the abdominal aorta which extends into the iliac vasculature. Surgical clips within the subcutaneous fat of the lower ventralabdominal wall. Hepatic parenchyma is unremarkable. Intrahepatic/extrahepatic biliary ductal dilatation likely related to prior cholecystectomy. Pancreatic atrophy. The spleen and bilateral adrenal glands are normal.No nephrolithiasis or hydronephrosis. A few tiny locules of air within the ventral margin of the bladder. Recommend correlating with urinary analysis to exclude cystitis. A partially anteverted uterus. Mild colonic fecal burden at the level of the distal rectum. No bowel obstruction, pneumoperitoneum, or pneumatosis. Moderate stool burden greatest the proximal colon which may represent constipation. Normal appendix. Degenerative changes of the lumbar spine. IMPRESSION: 1. No nephrolithiasis or hydronephrosis. 2. Moderate stool burden greatest the proximal colon which may represent constipation. 3. Gastric bypass. 4. Intrahepatic/extrahepatic biliary ductal dilatation likely related to prior cholecystectomy. 5. A few tiny locules of air within the ventral margin of the urinary bladder. Recommend correlating with urinary analysis to excludecystitis. This document has been electronically signed by: Mulugeta Figueroa DO on 01/26/2025 21:44:[address] PROCEDURES Britney l Result * (ABNORMAL) CBC auto differential (01/26/2025 7:27 PM EDT) WBC 6.8 4.8 - 10.8 K/mcL LAB [facility] RBC 3.30(L) 3.80 - 4.80 M/mcL LAB HEMETOLOGY METHOD 01/26/2025 8:04 PM [facility] Hemoglobin 7.8(L) 11.5 - 16.0 g/dL LAB HEMETOLOGY METHOD 01/26/2025 8:04 PM [facility] Hematocrit 26.1(L) 35.0 - 47.0 % LAB HEMETOLOGY METHOD 01/26/2025 8:04 PM [facility] MCV 80.3 79.0 - 98.0 FL LAB HEMETOLOGY METHOD 01/26/2025 8:04 PM [facility] MCH 24.0(L) 27.0 - 32.0 pcg LAB HEMETOLOGY METHOD 01/26/2025 8:04 PM [facility] MCHC 29.9(L) 32.0 - 37.0 g/dL LAB HEMETOLOGY METHOD 01/26/2025 8:04 PM [facility] RDW 17.1(H) 11.0 - 15.0 % LAB HEMETOLOGY METHOD 01/26/2025 8:04 PM [facility] Platelets 451(H) 130 - 400 K/mcL LAB HEMETOLOGY METHOD 01/26/2025 8:04 PM [facility] MPV 10.1 7.0 - 11.0 FL LAB HEMETOLOGY METHOD 01/26/2025 8:04 PM [facility] NRBC 0.0 <1.0 % LAB HEMETOLOGY METHOD 01/26/2025 8:04 PM [facility] NRBC Absolute 0.00 <0.10 K/mcL LAB HEMETOLOGY METHOD 01/26/2025 8:04 PM [facility] Neutrophils Relative 77.2 % LAB HEMETOLOGY METHOD 01/26/2025 8:04 PM [facility] Lymphocytes Relative 15.1 % LAB HEMETOLOGY METHOD 01/26/2025 8:04 PM [facility] Monocytes Relative 5.7 % LAB HEMETOLOGY METHOD 01/26/2025 8:04 PM [facility] Eosinophils Relative 1.0 % LAB HEMETOLOGY METHOD 01/26/2025 8:04 PM [facility] Basophils Relative 0.4 % LAB HEMETOLOGY METHOD 01/26/2025 8:04 PM [facility] Immature Granulocytes Relative 0.6 % LAB HEMETOLOGY METHOD 01/26/2025 8:04 PM [facility] Neutrophils Absolute 5.26 1.50 - 7.00 K/mcL LAB HEMETOLOGY METHOD 01/26/2025 8:04 PM EDT [facility] Lymphocytes Absolute 1.03 1.00 - 5.00 K/mcL LAB HEMETOLOGY METHOD 01/26/2025 8:04 PM EDT [facility] Monocytes Absolute 0.39 0.20 - 1.00 K/mcL LAB HEMETOLOGY METHOD 01/26/2025 8:04 PM EDT [facility] Eosinophils Absolute 0.07 0.00 - 0.50 K/[facility] LAB HEMETOLOGY METHOD 01/26/2025 8:04 PM EDT [facility] Basophils Absolute 0.03 0.00 - 0.20 K/[facility] LAB HEMETOLOGY METHOD 01/26/2025 8:04 PM EDT [facility] Immature Granulocytes Absolute 0.04(H) 0.00 - 0.03 K/[facility] LAB HEMETOLOGY METHOD 01/26/2025 8:04 PM EDT [facility] Blood Venous blood specimen / Unknown Venipuncture / Unknown 01/26/2025 7:27 PM EDT 01/26/2025 7:40 PM EDT us Chaz Jose MD LAB BLOOD ORDERABLES Final Resu lt [facility] [address] [place] [address], * (ABNORMAL) Comprehensive metabolic panel (01/26/2025 7:27 PM EDT) Sodium 142 133 - 145 mmol/L LAB CHEMISTRY METHOD 01/26/2025 8:28 PM EDT [facility] Potassium 3.7 3.5 - 5.5 mmol/L LAB CHEMISTRY METHOD 01/26/2025 8:28 PM EDT [facility] Chloride 108 96 - 110 mmol/L LAB CHEMISTRY METHOD 01/26/2025 8:28 PM [facility] CO2 23 21 - 32 mmol/L LAB CHEMISTRY METHOD 01/26/2025 8:28 PM [facility] Anion Gap 11 3 - 11 LAB CHEMISTRY METHOD 01/26/2025 8:28 PM [facility] Glucose 111(H) 70 - 100 mg/dL LAB CHEMISTRY METHOD 01/26/2025 8:28 PM [facility] BUN 17 5 - 25 mg/dL LAB CHEMISTRY METHOD 01/26/2025 8:28 PM [facility] Creatinine 0.67 0.50 - 1.10 mg/dL LAB CHEMISTRY METHOD 01/26/2025 8:28 PM [facility] eGFR 97 >=60 mL/min/1. 73m2 LAB CHEMISTRY METHOD 01/26/2025 8:28 PM [facility] Comment:Calculation based on the??Chronic Kidney Disease Epidemiology Collaboration (CKD-EPI) equation refit??without adjustment for race. BUN/Creatinine Ratio 25.4 LAB CHEMISTRY METHOD 01/26/2025 8:28 PM [facility] Calcium 9.2 8.5 - 10.5 mg/dL LAB CHEMISTRY METHOD 01/26/2025 8:28 PM [facility] AST (SGOT) 21 10 - 42 unit/L LAB CHEMISTRY METHOD 01/26/2025 8:28 PM [facility] ALT (SGPT) 18 10 - 60 unit/L LAB CHEMISTRY METHOD 01/26/2025 8:28 PM [facility] Alkaline Phosphatase 101 42 - 121 unit/L LAB CHEMISTRY METHOD 01/26/2025 8:28 PM [facility] Total Protein 7.0 6.0 - 8.0 g/dL LAB CHEMISTRY METHOD 01/26/2025 8:28 PM [facility] Albumin 3.4 3.2 - 5.0 g/dL LAB CHEMISTRY METHOD 01/26/2025 8:28 PM EDT [facility] Total Bilirubin 0.2 0.0 - 1.4 mg/dL LAB CHEMISTRY METHOD 01/26/2025 8:28 PM EDT [facility] Blood Venous blood specimen / Unknown Venipuncture / Unknown 01/26/2025 7:27 PM EDT 01/26/2025 7:40 PM EDT us Chaz Jose MD LAB BLOOD ORDERABLES Final Resu lt [facility] [address] [place] [address], * (ABNORMAL) Culture urine (01/26/2025 7:15 PM EDT) Culture, Urine >100,000 CFU/mL Escherichia coli(A) JAIME 01/28/2025 10:19 AM EDT [facility] Urine Urine specimen obtained by clean catch procedure / Unknown 01/26/2025 7:15 PM EDT 01/26/2025 7:49 PM EDT Narrative Organism Antibiotic Method Susceptibility Escherichia coli Amoxicillin/Clavulanate JAIME <=2 ug/ml: Susceptible Escherichia coli Ampicillin/Sulbactam JAIME <=2 ug/ml: Susceptible Escherichia coli Piperacillin/Tazobactam JAIME <=4 ug/ml: Susceptible Escherichia coli Cefazolin (Urine) JAIME <=1 ug/ml: Susceptible Escherichia coli Cefoxitin JAIME <=4 ug/ml: Susceptible Escherichia coli Ceftazidime JAIME <=0.5 ug/ml: Susceptible Escherichia coli Ceftriaxone JAIME <=0.25 ug/ml: Susceptible Escherichia coli Cefepime JAIME <=0.12 ug/ml: Susceptible Escherichia coli Meropenem JAIME <=0.25 ug/ml: Susceptible Escherichia coli Amikacin JAIME 2 ug/ml: Susceptible Escherichia coli Gentamicin JAIME <=1 ug/ml: Susceptible Escherichia coli Ciprofloxacin JAIME 0.5 ug/ml: Intermediate Escherichia coli Levofloxacin JAIME 0.5 ug/ml: Susceptible Escherichia coli Nitrofurantoin JAIME <=16 ug/ml: Susceptible Escherichia coli Trimethoprim/Sulfamethoxazole JAIME <=20 ug/ml: Susceptible us Chaz Jose MD LAB MICROBIOLOGY - GENERAL ORDE RABLES Final Result Performing Organization Address [facility]/ZIP Co de Phone Number [facility] [address] [place] [address], [place] [phone] * [place] urine culture tube (01/26/2025 7:15 PM EDT) [facility] Extra Tube Hold for add-ons. 01/26/2025 9:01 PM EDT [facility] Comment:Auto resulted. Urine Urine specimen obtained by clean catch procedure / Unknown Non-blood Collection / Unknown 01/26/2025 7:15 PM EDT 01/26/2025 7:40 PM EDT Chaz Jose MD LAB URINE ORDERABLES Final Resu lt Performing Organization Address [facility]/ZIP Co de Phone Number [facility] [address] [place] [address], [place] [phone] * (ABNORMAL) Urinalysis with reflex microscopic and culture (01/26/2025 7:15 PM EDT) [facility] Specific [place] Urine 1.017 1.003 - 1.030 LAB URINALYSIS - AUTOMATED METHOD 01/26/2025 7:49 PM EDT [facility] pH, Urine 6.0 5.0 - 8.0 pH LAB URINALYSIS - AUTOMATED METHOD 01/26/2025 7:49 PM EDT [facility] Leukocytes, Urine Trace(A) Negative LAB URINALYSIS - AUTOMATED METHOD 01/26/2025 7:49 PM EDT [facility] Nitrite, Urine Negative Negative LAB URINALYSIS - AUTOMATED METHOD 01/26/2025 7:49 PM EDT [facility] Protein, Urine Negative <=Trace mg/dL LAB URINALYSIS - AUTOMATED METHOD 01/26/2025 7:49 PM [facility] Glucose, Urine Negative Negative mg/dL LAB URINALYSIS - AUTOMATED METHOD 01/26/2025 7:49 PM [facility] Ketones, Urine Negative Negative mg/dL LAB URINALYSIS - AUTOMATED METHOD 01/26/2025 7:49 PM [facility] Urobilinogen , Urine 0.2 0.2 - 1.0 mg/dL LAB URINALYSIS - AUTOMATED METHOD 01/26/2025 7:49 PM [facility] Bilirubin, Urine Negative Negative LAB URINALYSIS - AUTOMATED METHOD 01/26/2025 7:49 PM [facility] Blood, Urine Negative Negative LAB URINALYSIS - AUTOMATED METHOD 01/26/2025 7:49 PM [facility] RBC, Urine 5.8(H) 0 - 4 /HPF LAB URINALYSIS - AUTOMATED METHOD 01/26/2025 7:49 PM [facility] WBC, Urine 3.8 0 - 4 /HPF LAB URINALYSIS - AUTOMATED METHOD 01/26/2025 7:49 PM [facility] Squamous Epithelial, Urine 59 0 - 60 /LPF LAB URINALYSIS - AUTOMATED METHOD 01/26/2025 7:49 PM [facility] Bacteria, Urine Moderate(A) Negative /HPF LAB URINALYSIS - AUTOMATED METHOD 01/26/2025 7:49 PM [facility] Hyaline Casts, Urine 1.2 0 - 3 /LPF LAB URINALYSIS - AUTOMATED METHOD 01/26/2025 7:49 PM [facility] Urine Urine specimen obtained by clean catch procedure / Unknown Non-blood Collection / Unknown 01/26/2025 7:15 PM EDT 01/26/2025 7:40 PM EDT Chaz Jose MD LAB URINE ORDERABLES Final Resu lt [facility] [address] [place] [address], documented in this encounter Visit Diagnoses Diagnosis Urinary tract infection without hematuria, site unspecified- Primary Constipation, unspecified constipation type Nausea and vomiting, unspecified vomiting type documented in this encounter Administered Medications Inactive Administered Medications - up to 3 most recent administrations Medication Order MAR Action Action Date Dose Rate Site cephalexin (KEFLEX) capsule 500 mg 500 mg, oral, Once, On Sat01/26/25 at 223, For 1 dose, Indication: Urinary Tract/Genitourinary Given 01/26/2025 10:49 PM EDT 500 mg HYDROmorphone (DILAUDID) injection 0.5 mg 0.5 mg, intravenous, Once, On Sat01/26/25 at 185, For 1 dose Given 01/26/2025 8:39 PM EDT 0.5 mg iopamidoL (ISOVUE-370) 370 mg iodine /mL (76 %) injection 100 mL 100 mL, intravenous, Once in imaging, Starting on Sat01/26/25 at 2051, For 1 dose Given 01/26/2025 8:59 PM EDT 90 mL ondansetron (PF) (ZOFRAN) injection 4 mg 4 mg, intravenous, Once, On Sat01/26/25 at 1851, For 1 dose Given 01/26/2025 8:36 PM EDT 4 mg ondansetron ODT (ZOFRAN-ODT) disintegrating tablet 4 mg 4 mg, oral, Once, On Sat01/26/25 at 2239, For 1 dose Given 01/26/2025 10:49 PM EDT 4 mg sodium chloride 0.9 % bolus 1,000 mL 1,000 mL, intravenous, at 1,000 mL/hr, Administer over 1 Hours, Once, On Sat01/26/25 at 1851, For 1 dose New Bag 01/26/2025 8:44 PM EDT 1,000 mL 1000 mL/hr sodium chloride 0.9 % flush 10 mL 10 mL, intravenous, Once, On Sat01/26/25 at 2052, For 1 dose Given 01/26/2025 8:59 PM EDT 10 mL documented in this encounter Active and Recently Administered Medications Due to Daylight Saving Time, this section may contain times in both EST and EDT. Scheduled Medication Order 01/24/2025 01/25/2025 01/26/2025 cephalexin (KEFLEX) capsule 500 mg (COMPLETED) 500 mg, oral, Once, On e 01/26/25 at 2238, For 1 dose, Indication: Urinary Tract/Genitourinary 2248 (Given - Provid er: Vidhi Major RN) HYDROmorphone (DILAUDID) injection 0.5 mg (COMPLETED) 0.5 mg, intravenous, Once, On e 01/26/25 at 1850, For 1 dose 2038 (Given - Provid er: Vidhi Major RN - Comment: pt care) iopamidoL (ISOVUE-370) 370 mg iodine /mL (76 %) injection 100 mL (COMPLETED) 100 mL, intravenous, Once in imaging, Starting on Sat01/26/25 at 2051, For 1 dose 2058 (Given - Provid er: Cyndy Crawford) ondansetron (PF) (ZOFRAN) injection 4 mg (COMPLETED) 4 mg, intravenous, Once, On e 01/26/25 at 185, For 1 dose 2035 (Given - Provid er: Vidhi Major RN - Comment: pt care) ondansetron ODT (ZOFRAN-ODT) disintegrating tablet 4 mg (COMPLETED) 4 mg, oral, Once, On e 01/26/25 at 2238, For 1 dose 2248 (Given - Provid er: Vidhi Major RN) oxyCODONE (ROXICODONE) immediate release tablet 5 mg 5 mg, oral, Once, On e 01/26/25 at 2238, For 1 dose 2251 (Not Given - Pr ovider: Vidhi Major RN - Reason: Patient/Resident/Agent refused - education provided ) sodium chloride 0.9 % bolus 1,000 mL (COMPLETED) 1,000 mL, intravenous, at 1,000 mL/hr, Administer over 1 Hours, Once, On e 01/26/25 at 185, For 1 dose 2044 (New Bag - Prov ider: Vidhi Major, BRADY - Comment: pt care)2241 (Stopped - Provider: Vidhi Major RN) sodium chloride 0.9 % flush 10 mL (COMPLETED) 10 mL, intravenous, Once, On Sat01/26/25 at 2052, For 1 dose 2054 (Not Given - Pr ovider: Vidhi Major RN - Reason: Other - Comment: pt receiving ivf)2058 (Given - Provider: Cyndy Crawford) documented in this encounter Orders Medications Ordered That Andre ht Not Have Been Administered Count Last Ordered Date First Ordered Date oxyCODONE (ROXICODONE) immed iate release tablet 5 mg 1 01/26/2025 documented in this encounter Care Teams Regulatory Affairs Assistant Relationship Specialty Start Date End Date Mary Jo Conteh MD [address] [place] [address] , [address] [facility] D[facility]A: [facility] CARLOS MANUEL Zeng PCP - General Internal Medicine 05/28/18 documented as of this encounter
--- OUTSIDE RECORDS SUMMARY | 2025-01-29 11:28 | XMS_ITS | Data Portability ---
Author Organization [place] - [facility], Allergy Address [address] [address] Assessment Encounter Date Assessment Date Assessment LastModified [...] recorded. 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 [email or web address] [address], [address], 10/09/2024 09:09:01 Result Notes None recorded. 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 201806/19/2024 Malignan t neoplasm of parotid gland; Location : right No te: Date Diagnose d: 9 11:40 AM (C07) Not Available [facility] 4 02:29:33 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 Procedures Surgical [...] 09/05/2024 MRI, neck, w/wo contrast completed [email or web address] [facility] [address] [place], [address], 10/09/2024 09:09:01 Procedure Notes None recorded. Medical [...] Updated DateTime 07/08/2024 152.4 cm 29.3 kg/m2 24033.86 g Marc Odonnell [place] - [facility] 07/08/2024 13:41:16 Social History None recorded. Functional Status None recorded. Mental Status None recorded. Family History Nothing Reported. Medical History No medical history recorded. Gynecological HistoryNo gynecological history recorded. Obstetrics History GPAL:G 0 P 0 0 0 0 Past Encounters Encounter ID Performer Location Encounter Start Date Encounter Closed Date Diagnosis/Indication Diagnosis SNOMED-CT Code Diagnosis ICD10 Code Diagnosis Note [id number] CHRIS WOO MD [facility] [address] [address] 07/08/2024 13:31:55 07/08/2024 14:01:53 History of malignant neoplasm of parotid gland 4737712695 06980 Z85.818 Health Concerns Section Related Observation LastModified by Organization Detai ls LastModified Time None Recorded Concern Status LastModified by Organization Details LastModified Time None Recorded Advance Directives Directive None Recorded Payers Encounter Date Sequence Insurance Name Policy Number Policy Madrigal Covered Member ID Madrigal Member ID Guarantor Name 07/08/2024 1 [facility] Maura Travis [id number] Maura Travis Notes Date Note Type Note Provider Name and Address Organization Details Recorded Time 07/08/2024 text/html prydeinig - IPADhx of right deep lobe parotid [...] for a follicular nodule CHRIS WOO MD [address] [place] [address], [phone], [facility] - [facility] 07/08/2024 14:01:47 OBGyn Episode No OBEpisode recorded.
--- OUTSIDE RECORDS SUMMARY | 2025-01-29 11:28 | XMS_ITS | Clinical Summary ---
Author Organization [facility] Address [address] [place] [address] Phone Care Team Providers Care Hat Designer Name Role Phone Mary Jo Conteh MD Primary Care Provider [phone] Allergies No known active allergies Medications albuterol HFA (Ventolin HFA) 90 mcg/actuation inhaler Active AMLODIPINE BESYLATE, BULK, MISC Take 20 mg by mouth 1 (one) time each day. Active cholecalciferol (VITAMIN D-3) 1,250 mcg (50,000 unit) capsule 03/27/20 24 Active mo/Non-Adher Bndg/petrolatum (GAUZE PADS AND DRESSINGS TOP) 2 Units by Does not apply route daily for 15 doses. Apply as many gauzes as necessary to keep the area dry. 02/09/20 23 Active METOPROLOL SUCCINATE ORAL Take 25 mg by mouth 1 (one) time each day. Active ascorbic rujf-wydgjyla-zyv 1,000 mg powder effervescent in packet Take by mouth. Activ e nystatin (MYCOSTATIN) cream Apply 1 Application topically 1 (one) time each day. 06/25/20 18 Active phentermine 15 mg capsule Take 1 Capsule by mouth every morning for 30 days. 03/24/20 24 Active acetaminophen (TYLENOL) 500 mg tablet Take 2 tablets (1,000 mg total) by mouth every 6 (six) hours if needed for mild pain for up to 30 doses. 30 tablet 12/09/19 25 Active oxyCODONE (ROXICODONE) 5 mg immediate release tablet Take 1 tablet (5 mg total) by mouth every 6 (six) hours if needed for severe pain. Max Daily Amount: 20 mg 15 tablet 12/09/19 Active ondansetron ODT (ZOFRAN-ODT) 4 mg disintegrating tabletIndications: Nausea and vomiting, unspecified vomiting type Let 1 tablet dissolve under the tongue three times daily as needed for nausea or vomiting. 10 tablet 01/27/20 25 Active cephalexin (KEFLEX) 500 mg capsule Take 1 capsule (500 mg total) by mouth 3 (three) times a day for 7 days. 21 each 01/27/20 25 Active magnesium citrate solution Take 148 mL by mouth 1 (one) time for 1 dose. 148 mL 01/27/20 Active Problems Problem Noted Date Diagnosed Date Facial rhytids 10/03/2020 Calculus of gallbladder with chronic cholecystitis without obstruction 09/14/2020 Asthma 05/29/2018 Hypercholesteremia 05/29/2018 Obesity, Class I, BMI 30-34.9 05/29/2018 Resolved Problems Problem Noted Date Diagnosed Date Resolved Date Umbilical hernia 11/19/2024 12/09/2024 Encounters Date Type Department Care Team Description 01/26/2025 6:31 PM EDT - 01/26/2025 10:56 PM EDT Emergency [facility] Emergency [address] [place] [phone] Chaz Jose MD Urinary tract infection without hematuria, site unspecified (Primary Dx); Constipation, unspecified constipation type; Nausea and vomiting, unspecified vomiting type Discharge Disposition: Home or Self Care 12/09/2024 9:30 AM EST - 12/09/2024 11:30 AM EST Surgery [facility] Main OR [address] [place] [phone] Griffin Loya MD OPEN EXPLORATION UMBILICUS W/REPAIR OF RECURRENT UMBILICAL HERNIA [92541 (CPT??)] 12/09/2024 9:22 AM EST Anesthesia Event [facility] OR [address] [place] [phone] Tomas Collazo MD Hayes, Brett L, [employer] SUPERVISOR 12/09/2024 8:08 AM EST - 12/09/2024 1:03 PM EST Hospital Encounter [facility] Main OR [address] [place] [phone] Griffin Loya MD Discharge Disposition: Home or Self Care 12/02/2024 12:07 PM EST - 12/02/2024 11:59 PM EST Hospital Encounter [facility] Xray [address] [place] [phone] Discharge Disposition: Home or Self Care 12/01/2024 10:30 AM EST Pre-Admission Testing [facility] Pre-Admission Testing [address] [place] [phone] Umbilical hernia without obstruction and without gangrene 11/19/2024 2:15 PM EST Office Visit Bariatric Surgery - [place] [address] [facility] [address] [place] [phone] Griffin Loya MD Periumbilical abdominal pain (Primary Dx) from Last 3 Months Surgical History Surgery [...] Orientation Straight 10/14/2024 7: 16 PM EST Obstetrics History Last Filed Vital Signs Vital [...] Mass Index 31.05 01/26/2025 6:22 PM EDT Plan of Treatment Health Maintenance Due Date Last Done Comments [...] history exists Hypertension/CHF/CAD Annual BMP Blood Test 01/26/2026 01/26/2025, 12/02/2024, 10/14/2024 Influenza Vaccine Completed 07/30/2024, , 08/14/2022, Additional history exists Pneumococcal Vaccine: 50+ Years Completed 09/14/2024, 09/28/2023, 07/28/2020, Additional history [...] patient's age to complete this topic Meningococcal B Vacine Aged Out No lo nger eligible based on patient's age to complete this topic RSV Immunization Patients Under 20 months Aged Out No longer eligible based on patient's age to complete this topic Varicella Vaccines Aged Out No longer eligible based on patient's age to complete this topic Medical Devices Implanted Type Area Internal Grinder Set Up Operator Device Identifier Shelf Expiration Date Model / Serial / Lot Mesh Ventralex St 1.7in Sm Vidor W/Strap - Sn/A - [id number] Implanted:Qty: 1 on 12/09/2024 by Griffin Loya MD at [facility] Surgical Mesh Sling Implants N/A: Umbilical CR BARD - DAVOL DIV [id number] / N/A / N/A Procedures Procedure Name Priority Date/Time Associated Diagnosis Comments CT ABDOMEN PELVIS W CONTRAST STAT 01/26/2025 9:04 PM EDT CBC WITH AUTO DIFFERENTIAL STAT 01/26/2025 7:27 PM EDT COMPREHENSIVE METABOLIC PANEL STAT 01/26/2025 7:27 PM EDT CBC AND DIFFERENTIAL STAT 01/26/2025 7:27 PM EDT REBOLLEDO URINE CULTURE TUBE STAT 01/26/2025 7:15 PM EDT URINALYSIS WITH REFLEX MICROSCOPIC AND CULTURE STAT 01/26/2025 7:15 PM EDT URINALYSIS WITH REFLEX MICROSCOPIC AND CULTURE STAT 01/26/2025 7:15 PM EDT CULTURE URINE STAT 01/26/2025 7:15 PM EDT TH AN ENDOTRACHEAL(NO CHARGE) Routine 12/09/2024 9:36 AM EST VA REPR ANT ABD HERNIA(S) ANY APPR RECUR [...] Umbilical hernia without obstruction and without gangrene from Last 3 Months Results * CT Abdomen Pelvis w Contrast [...] document has been electronically signed by: Mulugeta Santos DO on 01/26/2025 21:44:06 Narrative 01/26/2025 9:44 [...] of the lumbar spine. Procedure Note Mulugeta Santos MD - 01/26/2025 INDICATION: Flank pain, kidney [...] document has been electronically signed by: Mulugeta Santos DO on 01/26/2025 21:44:[address] PROCEDURES Britney l Result * (ABNORMAL) CBC auto differential (01/26/2025 7:27 PM EDT) Only the most recent of2 resultswithin the time period is included. WBC 6.8 4.8 - 10.8 K/mcL LAB HEMETOLOGY METHOD 01/26/2025 8:04 PM EDT [facility] RBC 3.30(L) 3.80 - 4.80 M/mcL LAB HEMETOLOGY METHOD 01/26/2025 8:04 PM EDT [facility] Hemoglobin 7.8(L) 11.5 - 16.0 g/dL LAB HEMETOLOGY METHOD 01/26/2025 8:04 PM EDT [facility] Hematocrit 26.1(L) 35.0 - 47.0 % LAB [facility]EMETOLOGY [facility] MCV 80.3 79.0 - 98.0 FL LAB HEMETOLOGY METHOD 01/26/2025 8:[facility] MCH 24.0(L) 27.0 - 32.0 pcg LAB HEMETOLOGY METHOD 01/26/2025 8:[facility] MCHC 29.9(L) 32.0 - 37.0 g/dL LAB HEMETOLOGY METHOD 01/26/2025 8:04 PM [facility] RDW 17.1(H) 11.0 - 15.0 % LAB HEMETOLOGY METHOD 01/26/2025 8:04 PM [facility] Platelets 451(H) 130 - 400 K/mcL LAB HEMETOLOGY METHOD 01/26/2025 8:04 PM [facility] MPV 10.1 7.0 - 11.0 FL LAB HEMETOLOGY METHOD 01/26/2025 8:04 PM [facility] NRBC 0.0 <1.0 % LAB HEMETOLOGY METHOD 01/26/2025 8:04 PM [facility] NRBC Absolute 0.00 <0.10 K/mcL LAB HEMETOLOGY METHOD 01/26/2025 8:04 PM [facility] Neutrophils Relative 77.2 % LAB HEMETOLOGY METHOD 01/26/2025 8:04 PM [facility] Lymphocytes Relative 15.1 % LAB HEMETOLOGY METHOD 01/26/2025 8:04 PM [facility] Monocytes Relative 5.7 % LAB HEMETOLOGY METHOD 01/26/2025 8:04 PM [facility] Eosinophils Relative 1.0 % LAB HEMETOLOGY METHOD 01/26/2025 8:04 PM EDT [facility] Basophils Relative 0.4 % LAB HEMETOLOGY METHOD 01/26/2025 8:04 PM EDT [facility] Immature Granulocytes Relative 0.6 % LAB HEMETOLOGY METHOD 01/26/2025 8:04 PM EDT [facility] Neutrophils Absolute 5.26 1.50 - 7.00 K/mcL LAB HEMETOLOGY METHOD 01/26/2025 8:04 PM EDT [facility] Lymphocytes Absolute 1.03 1.00 - 5.00 K/mcL LAB HEMETOLOGY METHOD 01/26/2025 8:04 PM EDT [facility] Monocytes Absolute 0.39 0.20 - 1.00 K/mcL LAB HEMETOLOGY METHOD 01/26/2025 8:04 PM EDT [facility] Eosinophils Absolute 0.07 0.00 - 0.50 K/mcL LAB HEMETOLOGY METHOD 01/26/2025 8:04 PM EDT [facility] Basophils Absolute 0.03 0.00 - 0.20 K/mcL LAB HEMETOLOGY METHOD 01/26/2025 8:04 PM EDT [facility] Immature Granulocytes Absolute 0.04(H) 0.00 - 0.03 K/mcL LAB HEMETOLOGY METHOD 01/26/2025 8:04 PM EDT [facility] Blood Venous blood specimen / Unknown Venipuncture / Unknown 01/26/2025 7:27 PM EDT 01/26/2025 7:40 PM EDT us Chaz Jose MD LAB BLOOD ORDERABLES Final Resu lt [facility] [address] [place] [address], * (ABNORMAL) Comprehensive metabolic panel (01/26/2025 7:27 PM EDT) Sodium 142 133 - 145 mmol/L LAB CHEMISTRY METHOD 01/26/2025 8:28 PM [facility] Potassium 3.7 3.5 - 5.5 mmol/L LAB CHEMISTRY METHOD 01/26/2025 8:28 PM [facility] Chloride 108 96 - 110 mmol/L LAB CHEMISTRY METHOD 01/26/2025 8:28 PM [facility] CO2 23 21 - 32 mmol/L LAB CHEMISTRY METHOD 01/26/2025 8:28 PM [facility] Anion Gap 11 3 - 11 LAB CHEMISTRY METHOD 01/26/2025 8:28 PM [facility] Glucose 111(H) 70 - 100 mg/dL LAB CHEMISTRY METHOD 01/26/2025 8:28 PM [facility] BUN 17 5 - 25 mg/dL LAB CHEMISTRY METHOD 01/26/2025 8:28 PM [facility] Creatinine 0.67 0.50 - 1.10 mg/dL LAB CHEMISTRY METHOD 01/26/2025 8:28 PM [facility] eGFR 97 >=60 mL/min/1. 73m2 LAB CHEMISTRY METHOD 01/26/2025 8:28 PM [facility] Comment:Calculation based on the??Chronic Kidney Disease Epidemiology Collaboration (CKD-EPI) equation refit??without adjustment for race. BUN/Creatinine Ratio 25.4 LAB CHEMISTRY METHOD 01/26/2025 8:28 PM [facility] Calcium 9.2 8.5 - 10.5 mg/dL LAB CHEMISTRY METHOD 01/26/2025 8:28 PM [facility] AST (SGOT) 21 10 - 42 unit/L LAB CHEMISTRY METHOD 01/26/2025 8:28 PM [facility] ALT (SGPT) 18 10 - 60 unit/L LAB CHEMISTRY METHOD 01/26/2025 8:28 PM [facility] Alkaline Phosphatase 101 42 - 121 unit/L LAB CHEMISTRY METHOD 01/26/2025 8:28 PM EDT [facility] Total Protein 7.0 6.0 - 8.0 g/dL LAB CHEMISTRY METHOD 01/26/2025 8:28 PM EDT [facility] Albumin 3.4 3.2 - 5.0 g/dL LAB CHEMISTRY METHOD 01/26/2025 8:28 PM EDT [facility] Total Bilirubin 0.2 0.0 - 1.4 mg/dL LAB CHEMISTRY METHOD 01/26/2025 8:28 PM EDT [facility] Blood Venous blood specimen / Unknown Venipuncture / Unknown 01/26/2025 7:27 PM EDT 01/26/2025 7:40 PM EDT Chaz Jose MD LAB BLOOD ORDERABLES Final Resu lt [facility] [address] [place] [address], [place] [phone] * (ABNORMAL) Urinalysis with reflex microscopic and culture (01/26/2025 7:15 PM EDT) Only the most recent of2 resultswithin the time period is included. Specific [place] Urine 1.017 1.003 - 1.030 LAB URINALYSIS - AUTOMATED METHOD 01/26/2025 7:49 PM EDT [facility] pH, Urine 6.0 5.0 - 8.0 pH LAB URINALYSIS - AUTOMATED METHOD 01/26/2025 7:49 PM EDT [facility] Leukocytes, Urine Trace(A) Negative LAB URINALYSIS - AUTOMATED METHOD 01/26/2025 7:49 PM EDT [facility] Nitrite, Urine Negative Negative LAB URINALYSIS - AUTOMATED METHOD 01/26/2025 7:49 PM EDT [facility] Protein, Urine Negative <=Trace mg/dL LAB URINALYSIS - AUTOMATED METHOD 01/26/2025 7:49 PM [facility] Glucose, Urine Negative Negative mg/dL LAB URINALYSIS - AUTOMATED METHOD 01/26/2025 7:49 PM [facility] Ketones, Urine Negative Negative mg/dL LAB URINALYSIS - AUTOMATED METHOD 01/26/2025 7:49 PM [facility] Urobilinogen , Urine 0.2 0.2 - 1.0 mg/dL LAB URINALYSIS - AUTOMATED METHOD 01/26/2025 7:49 PM [facility] Bilirubin, Urine Negative Negative LAB URINALYSIS - AUTOMATED METHOD 01/26/2025 7:49 PM [facility] Blood, Urine Negative Negative LAB URINALYSIS - AUTOMATED METHOD 01/26/2025 7:49 PM [facility] RBC, Urine 5.8(H) 0 - 4 /HPF LAB URINALYSIS - AUTOMATED METHOD 01/26/2025 7:49 PM [facility] WBC, Urine 3.8 0 - 4 /HPF LAB URINALYSIS - AUTOMATED METHOD 01/26/2025 7:49 PM [facility] Squamous Epithelial, Urine 59 0 - 60 /LPF LAB URINALYSIS - AUTOMATED METHOD 01/26/2025 7:49 PM [facility] Bacteria, Urine Moderate(A) Negative /HPF LAB URINALYSIS - AUTOMATED METHOD 01/26/2025 7:49 PM [facility] Hyaline Casts, Urine 1.2 0 - 3 /LPF LAB URINALYSIS - AUTOMATED METHOD 01/26/2025 7:49 PM [facility] Urine Urine specimen obtained by clean catch procedure / Unknown Non-blood Collection / Unknown 01/26/2025 7:15 PM EDT 01/26/2025 7:40 PM EDT us Chaz Damon MD LAB URINE ORDERABLES Final Resu lt Performing Organization Address City/[facility]/ZIP Co de Phone Number [facility] [address] [place] [address], [place] [phone] * [place] urine culture tube (01/26/2025 7:15 PM EDT) Only the most recent of2 resultswithin the time period is included. Extra Tube Hold for add-ons. 01/26/2025 9:01 PM EDT [facility] Comment:Auto resulted. Urine Urine specimen obtained by clean catch procedure / Unknown Non-blood Collection / Unknown 01/26/2025 7:15 PM EDT 01/26/2025 7:40 PM EDT us Chaz Jose MD LAB URINE ORDERABLES Final Resu lt Performing Organization Address [facility]/ZIP Co de Phone Number [facility] [address] [place] [address], [place] [phone] * (ABNORMAL) Culture urine (01/26/2025 7:15 PM EDT) Culture, Urine >100,000 CFU/mL Escherichia coli(A) JAIME 01/28/2025 10:19 AM EDT [facility] Urine Urine specimen obtained [...] us Chaz Jose MD LAB MICROBIOLOGY - [facility] Final Result [facility] [address] [place] [address], * TH AN ENDOTRACHEAL(NO CHARGE) (12/09/2024 9:36 AM EST) Marshal Melissa CRNA - 12/09/2024 9:36 AM EST Marshal [...] mask + OA or adjuvant +/- NMBA us Tomas Collazo MD ANESTHESIA ORDERABLES Final Re sult * Type and screen (12/09/2024 9:20 AM EST) Only the most recent of2 resultswithin the time period is included. ABO Group O 12/09/2024 10:42 AM EST [facility] Rh Type Positive 12/09/2024 10:42 AM EST [facility] Antibody Screen Negative 12/09/2024 10:42 AM EST [facility] Blood Venous blood specimen / Unknown Venipuncture / Unknown 12/09/2024 9:20 AM EST 12/09/2024 9:21 AM EST us Griffin Loay MD LAB BLOOD BANK TEST ORDERABL ES Final Result [facility] [address] [place] [address], [place] [phone] * XR Chest 2 Views (12/02/2024 12:12 [...] Signed Date: 12/02/2024 12:30 ET Workstation ID: [id number] Transcribed By: Self Edit Transcribed Date: 12/02/2024 [...] Signed Date: 12/02/2024 12:30 ET Workstation ID: [id number] Transcribed By: Self Edit Transcribed Date: 12/02/2024 12:30 ET Surekha RICKETTS IMG XR PROCEDURES Final Resu lt * ECG 12 lead (12/02/2024 11:26 AM EST) Ventricular Rate ECG 86 BPM GEMUSE Atrial Rate 86 BPM GEMUSE P-R Interval 148 ms GEMUSE QRS Duration 92 ms GEMUSE Q-T Interval 366 ms GEMUSE QTc 437 ms GEMUSE P Wave Verdi 30 degrees GEMUSE R Verdi -24 degrees GEMUSE T Verdi 31 degrees GEMUSE ECG Interpretation Sinus rhythm [...] 10:48 AM EST Surekha RICKETTS ECG ORDERABLES Final Result GEMUSE * Magnesium (12/02/2024 11:07 AM EST) Magnesium 2.1 1.9 - 2.6 mg/dL LAB CHEMISTRY METHOD 12/02/2024 12:[address] [facility] Blood Venous blood specimen / Unknown Venipuncture / Unknown 12/02/2024 11:07 AM EST 12/02/2024 12:07 PM EST us Surekha RICKETTS LAB BLOOD ORDERABLES Final R esult [facility] [address] [place] [address], * (ABNORMAL) BMP (12/02/2024 11:07 AM EST) Sodium 136 133 - 145 mmol/L LAB CHEMISTRY METHOD 12/02/2024 12:[address] [facility] Potassium 3.8 3.5 - 5.5 mmol/L LAB CHEMISTRY METHOD 12/02/2024 12:[address] [facility] Chloride 103 96 - 110 mmol/L LAB CHEMISTRY METHOD 12/02/2024 12:[address] [facility] CO2 26 21 - 32 mmol/L LAB CHEMISTRY METHOD 12/02/2024 12:[address] [facility] Anion Gap 7 3 - 11 LAB CHEMISTRY METHOD 12/02/2024 12:[address] [facility] Glucose 146(H) 70 - 100 mg/dL LAB CHEMISTRY METHOD 12/02/2024 12:[address] [facility] BUN 15 5 - 25 mg/dL LAB CHEMISTRY METHOD 12/02/2024 12:[address] [facility] Creatinine 0.72 0.50 - 1.10 mg/dL LAB CHEMISTRY METHOD 12/02/2024 12:[address] [facility] eGFR 92 >=60 mL/min/1. 73m2 LAB CHEMISTRY METHOD 12/02/2024 12:52 PM EST [facility] Comment:Calculation based on the??Chronic Kidney Disease Epidemiology Collaboration (CKD-EPI) equation refit??without adjustment for race. BUN/Creatinine Ratio 20.8 LAB CHEMISTRY METHOD 12/02/2024 12:52 PM EST [facility] Calcium 10.0 8.5 - 10.5 mg/dL LAB CHEMISTRY METHOD 12/02/2024 12:52 PM EST [facility] Blood Venous blood specimen / Unknown Venipuncture / Unknown 12/02/2024 11:07 AM EST 12/02/2024 12:07 PM EST us Surekha RICKETTS LAB BLOOD ORDERABLES Final R esult [facility]) [facility] [address] [place] [address], from Last 3 Months Insurance [facility] MEDICARE Member Subscriber Plan / Payer (Ef fective 2023-Present) Name:Maura Bansal Relation to Subscriber:Self Name:Maura Bansal Payer ID:[id number] Group ID:[id number] Type:Not on file Address: [address] [facility] [place] [phone] Advance Directives Documents on File Type Date Recorded 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 Care Teams Hat Designer Relationship Specialty Start Date End Date Mary Jo Conteh MD [address] [place] [address] , [address] [place] [address] Physician Associ D/B/A: [facility] PCP - General Internal Medicine 05/28/18
== END 2025-01-29 11:11 | disposition home or self-care (01) ==
LOC: HO.HUSH 10:12
PROVIDERS: PCP Internal Medicine; Visit Provider Urology
DX: Z13.9 Encounter for screening, unspecified (principal)

== ENCOUNTER → 2025-01-29 10:11 | Outpatient (BNVA) | payer OTHER, SELFPAY | PROVIDERS: PCP Internal Medicine; Visit Provider Urology | DX: N30.10 Interstitial cystitis (chronic) without hematuria (principal); R31.29 Other microscopic hematuria; R39.89 Other symptoms and signs involving the genitourinary system | CPT/HCPCS: 51798; 81003; 99212 ==

== ENCOUNTER 2025-02-05 09:44 | Outpatient (AMB) | payer OTHER, SELFPAY ==
--- NOTE | 2025-02-05 10:15 | AM.OFFVISNUR ---
Intake Visit Reasons: IC Inst. Allergies phentermine Allergy (Intermediate, Verified 01/29/25 10:23) Palpitations Office Procedures Bladder/Catheter Procedure Details: Patient presents to office for IC instillation 1# for Bi Monthly treatments. Patient reports relief in in symptoms from IC instillations. Reports some frequency and pain today wanted to test for a UTI. Urine dipped in the office and was negative. Patient to make future IC appointments at checkout? 14fr straight cath used to instill: 10mls bupivicaine 0.50% 2mls heparin 10,000 units 10 mls lidocaine 2% lidocaine urojet 1ml solumedrol Patient tolerated well. 65121-Bqzflgofdw of Bladder 94187-Biipcc Bladder Catheter Procedure code (CPT) selection complete Assessment & Plan Assessment & Plan Orders: Orders AMB Bladder/Catheter Procedure Today N30.10 - Interstitial cystitis (chronic) without hematuria, R39.89 - Other symptoms and signs involving the genitourinary system AMB Urinalysis Automated Today Z13.9 - Encounter for screening, unspecified Coding CPT Codes Bladder/Catheter Procedure - CPT: 20656-Tivircbmdh of Bladder ([id number]) Bladder/Catheter Procedure - CPT: 81080-Gwitkc Bladder Catheter ([id number])
--- OUTSIDE RECORDS SUMMARY | 2025-02-05 11:12 | XMS_ITS | Encounter Summary ---
Author Organization [facility] Address [address] [place] [address] Care Team Providers Care Ceramic Artist Name Role Phone Mary Jo Conteh MD Primary Care Provider [phone] Reason for Visit * Reason Comments Flank Pain Bilateral flank pain , decreased urine output, concentrated urine for a long time. Encounter Details Date Type Department Care Team (Late st Contact Info) Description 01/26/2025 6:31 PM EDT - 01/26/2025 10:56 PM EDT Emergency [facility] Emergency [address] [place] [id number] Chaz Jose MD [address] [place] [address] Urinary tract infection without hematuria, site unspecified [...] encounter Discharge Instructions * Discharge Instructions* LILIAM Valdivia - 01/26/2025 10:36 PM EDT Follow-up with urine culture * Attachments The following attachments cannot be sent through Care Everywhere. * Constipation (Japanese) * UTI (Urinary Tract Infection): Female (Japanese) documented in this encounter Medications at Time of Discharge acetaminophen (TYLENOL) 500 mg tablet Take 2 tablets (1,000 mg total) by mouth every 6 (six) hours if needed for mild pain for up to 30 doses. 30 tablet 12/09/2024 albuterol HFA (Ventolin HFA) 90 mcg/actuation inhaler AMLODIPINE BESYLATE, BULK, MISC Take 20 mg by mouth 1 (one) time each day. ascorbic [id number] 1,000 mg powder effervescent in packet Take [...] mouth every morning for 30 days. 03/24/2024 cephalexin (KEFLEX) 500 mg capsule Take 1 capsule (500 mg total) by mouth 3 (three) times a day for 7 days. 21 each 01/26/2025 02/03/20 25 magnesium citrate solution Take 148 mL by mouth 1 (one) time for 1 dose. 148 mL 01/26/2025 01/27/20 25 ondansetron ODT (ZOFRAN-ODT) 4 mg disintegrating tabletIndications:N ausea and vomiting, unspecified vomiting type Let 1 tablet dissolve under the tongue three times daily as needed for nausea or vomiting. 10 tablet 01/26/2025 02/03/20 25 documented as of this encounter Ordered [...] mouth 1 (one) time each day. ascorbic rdao-ifvkplud-ckz 1,000 mg powder effervescent in packet Take [...] REFLEX MICROSCOPIC AND CULTURE - Abnormal Specific [place] Urine 1.017 pH, Urine 6.0 Leukocytes, Urine [...] Procedure Abnormality Status --------- ------ CBC auto differential[[id number]] Abnormal Final result Please view results for these tests on the individual orders. URINALYSIS WITH REFLEX MICROSCOPIC AND CULTURE Narrative: The following orders were created for panel order Urinalysis with reflex microscopic and culture. Procedure Abnormality Status --------- ------ Urinalysis with reflex ...[[id number]] Abnormal Final result Rebolledo urine culture tube[[id number]] Final result Please view results for these [...] by: Mulugeta Figueroa DO on 01/26/2025 21:44:[address] PROCEDURES Britney l Result * (ABNORMAL) CBC auto differential (01/26/2025 7:27 PM EDT) WBC 6.8 4.8 - 10.8 K/mcL LAB [facility] RBC 3.30(L) 3.80 - 4.80 M/mcL LAB HEMETOLOGY METHOD 01/26/2025 8:04 PM [facility] Hemoglobin 7.8(L) 11.5 - 16.0 g/dL LAB HEMETOLOGY METHOD 01/26/2025 8:04 PM [facility] Hematocrit 26.1(L) 35.0 - 47.0 % LAB HEMETOLOGY METHOD 01/26/2025 8:04 PM [facility] MCV 80.3 79.0 - 98.0 FL LAB HEMETOLOGY METHOD 01/26/2025 8:04 PM [facility] MCH 24.0(L) 27.0 - 32.0 pcg LAB HEMETOLOGY METHOD 01/26/2025 8:04 PM [facility] MCHC 29.9(L) 32.0 - 37.0 g/dL LAB HEMETOLOGY METHOD 01/26/2025 8:04 PM [facility] RDW 17.1(H) 11.0 - 15.0 % LAB HEMETOLOGY METHOD 01/26/2025 8:04 PM [facility] Platelets 451(H) 130 - 400 K/mcL LAB HEMETOLOGY METHOD 01/26/2025 8:04 PM [facility] MPV 10.1 7.0 - 11.0 FL LAB HEMETOLOGY METHOD 01/26/2025 8:04 PM [facility] NRBC 0.0 <1.0 % LAB HEMETOLOGY METHOD 01/26/2025 8:04 PM [facility] NRBC Absolute 0.00 <0.10 K/mcL LAB HEMETOLOGY METHOD 01/26/2025 8:04 PM [facility] Neutrophils Relative 77.2 % LAB HEMETOLOGY METHOD 01/26/2025 8:04 PM [facility] Lymphocytes Relative 15.1 % LAB HEMETOLOGY METHOD 01/26/2025 8:04 PM [facility] Monocytes Relative 5.7 % LAB HEMETOLOGY METHOD 01/26/2025 8:04 PM [facility] Eosinophils Relative 1.0 % LAB HEMETOLOGY METHOD 01/26/2025 8:04 PM [facility] Basophils Relative 0.4 % LAB HEMETOLOGY METHOD 01/26/2025 8:04 PM [facility] Immature Granulocytes Relative 0.6 % LAB HEMETOLOGY METHOD 01/26/2025 8:04 PM [facility] Neutrophils Absolute 5.26 1.50 - 7.00 K/mcL LAB HEMETOLOGY METHOD 01/26/2025 8:04 PM EDT [facility] Lymphocytes Absolute 1.03 1.00 - 5.00 K/mcL LAB HEMETOLOGY METHOD 01/26/2025 8:04 PM EDT [facility] Monocytes Absolute 0.39 0.20 - 1.00 K/mcL LAB HEMETOLOGY METHOD 01/26/2025 8:04 PM EDT [facility] Eosinophils Absolute 0.07 0.00 - 0.50 K/[facility] LAB HEMETOLOGY METHOD 01/26/2025 8:04 PM EDT [facility] Basophils Absolute 0.03 0.00 - 0.20 K/[facility] LAB HEMETOLOGY METHOD 01/26/2025 8:04 PM EDT [facility] Immature Granulocytes Absolute 0.04(H) 0.00 - 0.03 K/[facility] LAB HEMETOLOGY METHOD 01/26/2025 8:04 PM EDT [facility] Blood Venous blood specimen / Unknown Venipuncture / Unknown 01/26/2025 7:27 PM EDT 01/26/2025 7:40 PM EDT us Chaz Jose MD LAB BLOOD ORDERABLES Final Resu lt [facility] [address] [place] [address], * (ABNORMAL) Comprehensive metabolic panel (01/26/2025 7:27 PM EDT) Sodium 142 133 - 145 mmol/L LAB CHEMISTRY METHOD 01/26/2025 8:28 PM EDT [facility] Potassium 3.7 3.5 - 5.5 mmol/L LAB CHEMISTRY METHOD 01/26/2025 8:28 PM EDT [facility] Chloride 108 96 - 110 mmol/L LAB CHEMISTRY METHOD 01/26/2025 8:28 PM [facility] CO2 23 21 - 32 mmol/L LAB CHEMISTRY METHOD 01/26/2025 8:28 PM [facility] Anion Gap 11 3 - 11 LAB CHEMISTRY METHOD 01/26/2025 8:28 PM [facility] Glucose 111(H) 70 - 100 mg/dL LAB CHEMISTRY METHOD 01/26/2025 8:28 PM [facility] BUN 17 5 - 25 mg/dL LAB CHEMISTRY METHOD 01/26/2025 8:28 PM [facility] Creatinine 0.67 0.50 - 1.10 mg/dL LAB CHEMISTRY METHOD 01/26/2025 8:28 PM [facility] eGFR 97 >=60 mL/min/1. 73m2 LAB CHEMISTRY METHOD 01/26/2025 8:28 PM [facility] Comment:Calculation based on the??Chronic Kidney Disease Epidemiology Collaboration (CKD-EPI) equation refit??without adjustment for race. BUN/Creatinine Ratio 25.4 LAB CHEMISTRY METHOD 01/26/2025 8:28 PM [facility] Calcium 9.2 8.5 - 10.5 mg/dL LAB CHEMISTRY METHOD 01/26/2025 8:28 PM [facility] AST (SGOT) 21 10 - 42 unit/L LAB CHEMISTRY METHOD 01/26/2025 8:28 PM [facility] ALT (SGPT) 18 10 - 60 unit/L LAB CHEMISTRY METHOD 01/26/2025 8:28 PM [facility] Alkaline Phosphatase 101 42 - 121 unit/L LAB CHEMISTRY METHOD 01/26/2025 8:28 PM [facility] Total Protein 7.0 6.0 - 8.0 g/dL LAB CHEMISTRY METHOD 01/26/2025 8:28 PM [facility] Albumin 3.4 3.2 - 5.0 g/dL LAB CHEMISTRY METHOD 01/26/2025 8:28 PM EDT [facility] Total Bilirubin 0.2 0.0 - 1.4 mg/dL LAB CHEMISTRY METHOD 01/26/2025 8:28 PM EDT [facility] Blood Venous blood specimen / Unknown Venipuncture / Unknown 01/26/2025 7:27 PM EDT 01/26/2025 7:40 PM EDT us Chaz Jose MD LAB BLOOD ORDERABLES Final Resu lt [facility] [address] [place] [address], * (ABNORMAL) Culture urine (01/26/2025 7:15 PM EDT) Culture, Urine >100,000 CFU/mL Escherichia coli(A) JAIME 01/28/2025 10:19 AM EDT [facility] [...] ORDE RABLES Final Result Performing Organization Address [facility]/ZIP Co de Phone Number [facility] [address] [place] [address], [place] [phone] * Rebolledo urine culture tube (01/26/2025 7:15 PM EDT) [facility] Extra Tube Hold for add-ons. 01/26/2025 9:01 PM EDT [facility] Comment:Auto resulted. Urine Urine specimen obtained by clean catch procedure / Unknown Non-blood Collection / Unknown 01/26/2025 7:15 PM EDT 01/26/2025 7:40 PM EDT Chaz Jose MD LAB URINE ORDERABLES Final Resu lt Performing Organization Address [facility]/ZIP Co de Phone Number [facility] [address] [place] [address], [place] [phone] * (ABNORMAL) Urinalysis with reflex microscopic and culture (01/26/2025 7:15 PM EDT) [facility] Specific [place] Urine 1.017 1.003 - 1.030 LAB URINALYSIS - AUTOMATED METHOD 01/26/2025 7:49 PM EDT [facility] pH, Urine 6.0 5.0 - 8.0 pH LAB URINALYSIS - AUTOMATED METHOD 01/26/2025 7:49 PM EDT [facility] Leukocytes, Urine Trace(A) Negative LAB URINALYSIS - AUTOMATED METHOD 01/26/2025 7:49 PM EDT [facility] Nitrite, Urine Negative Negative LAB URINALYSIS - AUTOMATED METHOD 01/26/2025 7:49 PM EDT [facility] Protein, Urine Negative <=Trace mg/dL LAB URINALYSIS - AUTOMATED METHOD 01/26/2025 7:49 PM [facility] Glucose, Urine Negative Negative mg/dL LAB URINALYSIS - AUTOMATED METHOD 01/26/2025 7:49 PM [facility] Ketones, Urine Negative Negative mg/dL LAB URINALYSIS - AUTOMATED METHOD 01/26/2025 7:49 PM [facility] Urobilinogen , Urine 0.2 0.2 - 1.0 mg/dL LAB URINALYSIS - AUTOMATED METHOD 01/26/2025 7:49 PM [facility] Bilirubin, Urine Negative Negative LAB URINALYSIS - AUTOMATED METHOD 01/26/2025 7:49 PM [facility] Blood, Urine Negative Negative LAB URINALYSIS - AUTOMATED METHOD 01/26/2025 7:49 PM [facility] RBC, Urine 5.8(H) 0 - 4 /HPF LAB URINALYSIS - AUTOMATED METHOD 01/26/2025 7:49 PM [facility] WBC, Urine 3.8 0 - 4 /HPF LAB URINALYSIS - AUTOMATED METHOD 01/26/2025 7:49 PM [facility] Squamous Epithelial, Urine 59 0 - 60 /LPF LAB URINALYSIS - AUTOMATED METHOD 01/26/2025 7:49 PM [facility] Bacteria, Urine Moderate(A) Negative /HPF LAB URINALYSIS - AUTOMATED METHOD 01/26/2025 7:49 PM [facility] Hyaline Casts, Urine 1.2 0 - 3 /LPF LAB URINALYSIS - AUTOMATED METHOD 01/26/2025 7:49 PM [facility] Urine Urine specimen obtained by clean catch procedure / Unknown Non-blood Collection / Unknown 01/26/2025 7:15 PM EDT 01/26/2025 7:40 PM EDT Chaz Jose MD LAB URINE ORDERABLES Final [facility] [address] [place] [address], documented in this encounter Visit Diagnoses Diagnosis [...] 01/26/2025 documented in this encounter Care Teams Ceramic Artist Relationship Specialty Start Date End Date Mary Jo Conteh MD [address] [place] [address] , [address] [facility] Physician [facility] D/B/A: [facility] CARLOS MANUEL Zeng PCP - General Internal Medicine 05/28/18 documented as of this encounter
--- OUTSIDE RECORDS SUMMARY | 2025-02-05 11:12 | XMS_ITS | Data Portability ---
Author Organization [place] - [facility], Allergy Address [address] [address] Assessment Encounter Date Assessment Date Assessment LastModified [...] recorded. Imaging MRI, neck, w/wo contrast - puerto rican speaker, hx of right parotidecto my for [...] ast No observ ation record ed. [email or web address] [address], [address], 10/09/2024 09:09:01 Result Notes None recorded. 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 201806/19/2024 Malignan t neoplasm of parotid gland; Location : right No te: Date Diagnose d: 9 11:40 AM (C07) [facility] Available [facility] 02:29:33 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 Procedures Surgical [...] 09/05/2024 MRI, neck, w/wo contrast completed [email or web address] [facility] [address] [place], [address], 10/09/2024 09:09:01 Procedure Notes None recorded. Medical [...] Updated DateTime 07/08/2024 152.4 cm 29.3 kg/m2 38967.86 g Marc Odonnell [place] - [facility] 07/08/2024 13:41:16 Social History None recorded. Functional Status None recorded. Mental Status None recorded. Family History Nothing Reported. Medical History No medical history recorded. Gynecological HistoryNo gynecological history recorded. Obstetrics History GPAL:G 0 P 0 0 0 0 Past Encounters Encounter ID Performer Location Encounter Start Date Encounter Closed Date Diagnosis/Indication Diagnosis SNOMED-CT Code Diagnosis ICD10 Code Diagnosis Note [id number] CHRIS WOO MD [facility] [address] [address] 07/08/2024 13:31:55 07/08/2024 14:01:53 History of malignant neoplasm of parotid gland 4299511051 13473 Z85.818 Health Concerns Section Related Observation LastModified by Organization Detai ls LastModified Time None Recorded Concern Status LastModified by Organization Details LastModified Time None Recorded Advance Directives Directive None Recorded Payers Encounter Date Sequence Insurance Name Policy Number Policy Madrigal Covered Member ID Madrigal Member ID Guarantor Name 07/08/2024 1 [facility] Maura Travis [id number] Maura Travis Notes Date Note Type Note Provider Name and Address Organization Details Recorded Time 07/08/2024 text/html puerto rican - IPADhx of right deep lobe parotid [...] for a follicular nodule CHRIS WOO MD [address] [place] [address], [phone], [facility] - [facility] 07/08/2024 14:01:47 OBGyn Episode No OBEpisode recorded.
--- OUTSIDE RECORDS SUMMARY | 2025-02-05 11:13 | XMS_ITS | Clinical Summary ---
Author Organization [facility] Address [address] [place] [address] Phone Care Team Providers Care Flexible Shaft Winder Name Role Phone Mary Jo Conteh MD Primary Care Provider [phone] Allergies No known active allergies Medications albuterol [...] 1 (one) time each day. Active ascorbic dolb-yadhbaud-zgm 1,000 mg powder effervescent in packet Take [...] Amount: 20 mg 15 tablet 12/09/19 Active magnesium citrate solution Take 148 mL by mouth 1 (one) time for 1 dose. 148 mL 01/27/20 25 025 ondansetron ODT (ZOFRAN-ODT) 4 mg disintegrating tabletIndications: Nausea and vomiting, unspecified vomiting type Let 1 tablet dissolve under the tongue three times daily as needed for nausea or vomiting. 10 tablet 01/27/20 25 025 cephalexin (KEFLEX) 500 mg capsule Take 1 capsule (500 mg total) by mouth 3 (three) times a day for 7 days. 21 each 01/27/20 025 Active Problems Problem Noted Date Diagnosed Date Facial rhytids 10/03/2020 Calculus of gallbladder with chronic cholecystitis without obstruction 09/14/2020 Asthma 05/29/2018 Hypercholesteremia 05/29/2018 Obesity, Class I, BMI 30-34.9 05/29/2018 Resolved Problems Problem Noted Date Diagnosed Date Resolved Date Umbilical hernia 11/19/2024 12/09/2024 Encounters Date Type Department Care Team Description 01/26/2025 6:31 PM EDT - 01/26/2025 10:56 PM EDT Emergency [facility] Emergency [address] [place] [phone] Chaz Jose MD Urinary tract infection without hematuria, site unspecified (Primary Dx); Constipation, unspecified constipation type; Nausea and vomiting, unspecified vomiting type Discharge Disposition: Home or Self Care 12/09/2024 9:30 AM EST - 12/09/2024 11:30 AM EST Surgery [facility] Main OR [address] [place] [phone] Griffin Loya MD OPEN EXPLORATION UMBILICUS W/REPAIR OF RECURRENT UMBILICAL HERNIA [17521 (CPT??)] 12/09/2024 9:22 AM EST Anesthesia Event [facility] OR [address] [place] [phone] Tomas Collazo MD Hayes, Brett L, [employer]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 12/09/2024 8:08 AM EST - 12/09/2024 1:03 PM EST Hospital Encounter [facility] Main OR [address] [place] [phone] Griffin Loya MD Discharge Disposition: Home or Self Care 12/02/2024 12:07 PM EST - 12/02/2024 11:59 PM EST Hospital Encounter [facility] Xray [address] [place] [phone] Discharge Disposition: Home or Self Care 12/01/2024 10:30 AM EST Pre-Admission Testing [facility] Pre-Admission Testing [address] [place] [phone] Umbilical hernia without obstruction and without gangrene 11/19/2024 2:15 PM EST Office Visit Bariatric Surgery - [place] [address] [facility] [address] [place] [phone] Griffin Loya MD Periumbilical abdominal pain (Primary [...] this topic Medical Devices Implanted Type Area Filter Changer Device Identifier Shelf Expiration Date Model / Serial / Lot Mesh Ventralex St 1.7in Sm [place] W/Strap - Sn/A - [id number] Implanted:Qty: 1 on 12/09/2024 by Girffin Loya MD at [facility] Surgical Mesh Sling Implants N/A: Umbilical CR BARD - DAVOL DIV [id number] / N/A / N/A Procedures Procedure Name [...] ENDOTRACHEAL(NO CHARGE) Routine 12/09/2024 9:36 AM EST [place] REPR ANT ABD HERNIA(S) ANY APPR RECUR [...] LAB HEMETOLOGY METHOD 01/26/2025 8:04 PM EDT [facility] RBC 3.30(L) 3.80 - 4.80 M/mcL LAB HEMETOLOGY METHOD 01/26/2025 8:04 PM EDT [facility] Hemoglobin 7.8(L) 11.5 - 16.0 g/dL LAB HEMETOLOGY METHOD 01/26/2025 8:04 PM EDT [facility] Hematocrit 26.1(L) 35.0 - 47.0 % LAB [facility]OLOG[facility] MCV 80.3 79.0 - 98.0 FL LAB HEMETOLOGY METHOD 01/26/2025 8:04 PM [facility] MCH 24.0(L) 27.0 - 32.0 pcg LAB HEMETOLOGY METHOD [facility]25 [facility] MCHC 29.9(L) 32.0 - 37.0 g/dL LAB HEMETOLOGY METHOD 01/26/2025 8:04 PM [facility] RDW 17.1(H) 11.0 - 15.0 % LAB HEMETOLOGY METHOD 01/26/2025 8:04 PM [facility] Platelets 451(H) 130 - 400 K/mcL LAB HEMETOLOGY METHOD 01/26/2025 8:04 PM [facility] MPV 10.1 7.0 - 11.0 FL LAB HEMETOLOGY METHOD 01/26/2025 8:04 PM [facility] NRBC 0.0 <1.0 % LAB HEMETOLOGY METHOD 01/26/2025 8:04 PM [facility] NRBC Absolute 0.00 <0.10 K/mcL LAB HEMETOLOGY METHOD 01/26/2025 8:04 PM [facility] Neutrophils Relative 77.2 % LAB HEMETOLOGY METHOD 01/26/2025 8:04 PM [facility] Lymphocytes Relative 15.1 % LAB HEMETOLOGY METHOD 01/26/2025 8:04 PM [facility] Monocytes Relative 5.7 % LAB HEMETOLOGY METHOD 01/26/2025 8:04 PM [facility] Eosinophils Relative 1.0 % LAB HEMETOLOGY METHOD 01/26/2025 8:04 PM EDT [facility] Basophils Relative 0.4 % LAB HEMETOLOGY METHOD 01/26/2025 8:04 PM EDT [facility] Immature Granulocytes Relative 0.6 % LAB HEMETOLOGY METHOD 01/26/2025 8:04 PM EDT [facility] Neutrophils Absolute 5.26 1.50 - 7.00 K/mcL LAB HEMETOLOGY METHOD 01/26/2025 8:04 PM EDT [facility] Lymphocytes Absolute 1.03 1.00 - 5.00 K/mcL LAB HEMETOLOGY METHOD 01/26/2025 8:04 PM EDT [facility] Monocytes Absolute 0.39 0.20 - 1.00 K/mcL LAB HEMETOLOGY METHOD 01/26/2025 8:04 PM EDT [facility] Eosinophils Absolute 0.07 0.00 - 0.50 K/mcL LAB HEMETOLOGY METHOD 01/26/2025 8:04 PM EDT [facility] Basophils Absolute 0.03 0.00 - 0.20 K/mcL LAB HEMETOLOGY METHOD 01/26/2025 8:04 PM EDT [facility] Immature Granulocytes Absolute 0.04(H) 0.00 - 0.03 K/mcL LAB HEMETOLOGY METHOD 01/26/2025 8:04 PM EDT [facility] Blood Venous blood specimen / Unknown Venipuncture / Unknown 01/26/2025 7:27 PM EDT 01/26/2025 7:40 PM EDT us Chaz Jose MD LAB BLOOD ORDERABLES Final Resu lt [facility] [address] [place] [address], * (ABNORMAL) Comprehensive metabolic panel (01/26/2025 7:27 PM EDT) Sodium 142 133 - 145 mmol/L LAB CHEMISTRY METHOD 01/26/2025 8:28 PM [facility] Potassium 3.7 3.5 - 5.5 mmol/L LAB CHEMISTRY METHOD 01/26/2025 8:28 PM [facility] Chloride 108 96 - 110 mmol/L LAB CHEMISTRY METHOD 01/26/2025 8:28 PM [facility] CO2 23 21 - 32 mmol/L LAB CHEMISTRY METHOD 01/26/2025 8:28 PM [facility] Anion Gap 11 3 - 11 LAB CHEMISTRY METHOD 01/26/2025 8:28 PM [facility] Glucose 111(H) 70 - 100 mg/dL LAB CHEMISTRY METHOD 01/26/2025 8:28 PM [facility] BUN 17 5 - 25 mg/dL LAB CHEMISTRY METHOD 01/26/2025 8:28 PM [facility] Creatinine 0.67 0.50 - 1.10 mg/dL LAB CHEMISTRY METHOD 01/26/2025 8:28 PM [facility] eGFR 97 >=60 mL/min/1. 73m2 LAB CHEMISTRY METHOD 01/26/2025 8:28 PM [facility] Comment:Calculation based on the??Chronic Kidney Disease Epidemiology Collaboration (CKD-EPI) equation refit??without adjustment for race. BUN/Creatinine Ratio 25.4 LAB CHEMISTRY METHOD 01/26/2025 8:28 PM [facility] Calcium 9.2 8.5 - 10.5 mg/dL LAB CHEMISTRY METHOD 01/26/2025 8:28 PM [facility] AST (SGOT) 21 10 - 42 unit/L LAB CHEMISTRY METHOD 01/26/2025 8:28 PM [facility] ALT (SGPT) 18 10 - 60 unit/L LAB CHEMISTRY METHOD 01/26/2025 8:28 PM EDT [facility] Alkaline Phosphatase 101 42 - 121 unit/L LAB CHEMISTRY METHOD 01/26/2025 8:28 PM EDT [facility] Total Protein 7.0 6.0 - 8.0 g/dL LAB CHEMISTRY METHOD [facility]25 [facility] Albumin 3.4 3.2 - 5.0 g/dL LAB CHEMISTRY METHOD 01/26[facility]2025 8[facility] Total Bilirubin 0.2 0.0 - 1.4 mg/dL LAB CHEMISTRY METHOD 01/26/2025 8:[facility] Blood Venous blood specimen / Unknown Venipuncture / Unknown 01/26/2025 7:27 PM EDT 01/26/2025 7:40 PM EDT Chaz Jose MD LAB BLOOD ORDERABLES Final Resu lt [facility] [address] [place] [address], [place] [phone] * (ABNORMAL) Urinalysis with reflex microscopic and culture (01/26/2025 7:15 PM EDT) Only the most recent of2 resultswithin the time period is included. Specific [place] Urine 1.017 1.003 - 1.030 LAB URINALYSIS - AUTOMATED METHOD 01/26/2025 7:49 PM [facility] pH, Urine 6.0 5.0 - 8.0 pH LAB URINALYSIS - AUTOMATED METHOD 01/26/2025 7:49 PM [facility] Leukocytes, Urine Trace(A) Negative LAB URINALYSIS - AUTOMATED METHOD 01/26/2025 7:49 PM [facility] Nitrite, Urine Negative Negative LAB URINALYSIS - AUTOMATED METHOD 01/26/2025 7:[facility] Protein, Urine Negative <=Trace mg/dL LAB URINALYSIS - AUTOMATED METHOD 01/26/2025 7:49 PM [facility] Glucose, Urine Negative Negative mg/dL LAB URINALYSIS - AUTOMATED METHOD 01/26/2025 7:49 PM [facility] Ketones, Urine Negative Negative mg/dL LAB URINALYSIS - AUTOMATED METHOD 01/26/2025 7:49 PM [facility] Urobilinogen , Urine 0.2 0.2 - 1.0 mg/dL LAB URINALYSIS - AUTOMATED METHOD 01/26/2025 7:49 PM [facility] Bilirubin, Urine Negative Negative LAB URINALYSIS - AUTOMATED METHOD 01/26/2025 7:49 PM [facility] Blood, Urine Negative Negative LAB URINALYSIS - AUTOMATED METHOD 01/26/2025 7:49 PM [facility] RBC, Urine 5.8(H) 0 - 4 /HPF LAB URINALYSIS - AUTOMATED METHOD 01/26/2025 7:49 PM [facility] WBC, Urine 3.8 0 - 4 /HPF LAB URINALYSIS - AUTOMATED METHOD 01/26/2025 7:49 PM [facility] Squamous Epithelial, Urine 59 0 - 60 /LPF LAB URINALYSIS - AUTOMATED METHOD 01/26/2025 7:49 PM [facility] Bacteria, Urine Moderate(A) Negative /HPF LAB URINALYSIS - AUTOMATED METHOD 01/26/2025 7:49 PM [facility] Hyaline Casts, Urine 1.2 0 - 3 /LPF LAB URINALYSIS - AUTOMATED METHOD 01/26/2025 7:49 PM [facility] Urine Urine specimen obtained by clean catch procedure / Unknown Non-blood Collection / Unknown 01/26/2025 7:15 PM EDT 01/26/2025 7:40 PM EDT us Chaz Jose MD LAB URINE ORDERABLES Final Resu lt [facility] [address] [place] [address], [place] [phone] * [place] urine culture tube (01/26/2025 7:15 PM EDT) Only the most recent of2 resultswithin the time period is included. Extra Tube Hold for add-ons. 01/26/2025 9:01 PM EDT [facility] Comment:Auto resulted. Urine Urine specimen obtained by clean catch procedure / Unknown Non-blood Collection / Unknown 01/26/2025 7:15 PM EDT 01/26/2025 7:40 PM EDT us Chaz Jose MD LAB URINE ORDERABLES Final Resu lt Performing Organization Address [facility]/ZIP Co de Phone Number [facility] [address] [place] [address], [place] [phone] * (ABNORMAL) Culture urine (01/26/2025 7:15 PM EDT) Culture, Urine >100,000 CFU/mL Escherichia coli(A) JAIME 01/28/2025 10:19 AM EDT [facility] Urine Urine specimen obtained [...] Chaz Jose MD LAB MICROBIOLOGY - GENERAL [place] [employer]ILDRESS Final Result [facility] [address] [place] [address], * TH AN ENDOTRACHEAL(NO CHARGE) (12/09/2024 9:36 [...] ABO Group O 12/09/2024 10:42 AM EST [facility] Rh Type Positive 12/09/2024 10:42 AM EST [facility] Antibody Screen Negative 12/09/2024 10:42 AM EST [facility] Blood Venous blood specimen / Unknown Venipuncture / Unknown 12/09/2024 9:20 AM EST 12/09/2024 9:21 AM EST us Griffin Loya MD LAB BLOOD BANK TEST ORDERABL ES Final Result [facility] [address] [place] [address], [place] [phone] * XR Chest 2 Views (12/02/2024 12:12 [...] Signed Date: 12/02/2024 12:30 ET Workstation ID: [id number] Transcribed By: Self Edit Transcribed Date: 12/02/2024 [...] Signed Date: 12/02/2024 12:30 ET Workstation ID: [id number] Transcribed By: Self Edit Transcribed Date: 12/02/2024 12:30 ET Surekha R[facility]ETTS IMG XR PROCEDURES Final Resu lt * ECG 12 lead (12/02/2024 11:26 AM EST) Ventricular Rate ECG 86 BPM GEMUSE Atrial Rate 86 BPM GEMUSE P-R Interval 148 ms GEMUSE QRS Duration 92 ms GEMUSE Q-T Interval 366 ms GEMUSE QTc 437 ms GEMUSE P Wave [place] 30 degrees GEMUSE R [place] -24 degrees GEMUSE T [place] 31 degrees GEMUSE ECG Interpretation Sinus rhythm [...] mg/dL LAB CHEMISTRY METHOD 12/02/2024 12:52 PM [facility] Blood Venous blood specimen / Unknown Venipuncture / Unknown 12/02/2024 11:07 AM EST 12/02/2024 12:07 PM EST us Surekha [facility]ETTS LAB BLOOD ORDERABLES Final R esult [facility] [address] [place] [address], * (ABNORMAL) BMP (12/02/2024 11:07 AM EST) Sodium 136 133 - 145 mmol/L LAB CHEMISTRY METHOD 12/02/2024 12:52 PM [facility] Potassium 3.8 3.5 - 5.5 mmol/L LAB CHEMISTRY METHOD 12/02/2024 12:52 PM [facility] Chloride 103 96 - 110 mmol/L LAB CHEMISTRY METHOD 12/02/2024 12:52 PM [facility] CO2 26 21 - 32 mmol/L LAB CHEMISTRY METHOD 12/02/2024 12:52 PM [facility] Anion Gap 7 3 - 11 LAB CHEMISTRY METHOD 12/02/2024 12:52 PM [facility] Glucose 146(H) 70 - 100 mg/dL LAB CHEMISTRY METHOD 12/02/2024 12:52 PM [facility] BUN 15 5 - 25 mg/dL LAB CHEMISTRY METHOD 12/02/2024 12:52 PM [facility] Creatinine 0.72 0.50 - 1.10 mg/dL LAB CHEMISTRY METHOD 12/02/2024 12:52 PM [facility] eGFR 92 >=60 mL/min/1. 73m2 LAB CHEMISTRY METHOD 12/02/2024 12:52 PM EST [facility] Comment:Calculation based on the??Chronic Kidney Disease Epidemiology Collaboration (CKD-EPI) equation refit??without adjustment for race. BUN/Creatinine Ratio 20.8 LAB CHEMISTRY METHOD 12/02/2024 12:52 PM EST [facility] Calcium 10.0 8.5 - 10.5 mg/dL LAB CHEMISTRY METHOD 12/02/2024 12:52 PM EST [facility] Blood Venous blood specimen / Unknown Venipuncture / Unknown 12/02/2024 11:07 AM EST 12/02/2024 12:07 PM EST [facility] LAB BLOOD ORDERABLES Final R esult [facility] [address] [place] [address], from Last 3 Months Insurance [facility] MEDICARE Member Subscriber Plan / Payer (Ef fective 2023-Present) Name:Maura Bansal Relation to Subscriber:Self Name:Maura Bnasal Payer ID:[id number] Group ID:[id number] Type:Not on file Address: [address] [facility] L[place]IAM EMM[place]UEL [phone] Advance Directives Documents on File Type Date Recorded 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 Care Teams Flexible Shaft Winder Relationship Specialty Start Date End Date Mary Jo Conteh MD [address] [place] [address] , [address] Physician Associ D/B/A: [facility] [place], [place] PCP - General Internal Medicine 05/28/18
== END 2025-02-05 10:25 | disposition home or self-care (01) ==
PROVIDERS: PCP Internal Medicine; Visit Provider Urology
DX: Z13.9 Encounter for screening, unspecified (principal)

== ENCOUNTER → 2025-02-05 09:44 | Outpatient (BNVA) | payer OTHER, SELFPAY | PROVIDERS: PCP Internal Medicine; Visit Provider Urology | DX: N30.10 Interstitial cystitis (chronic) without hematuria (principal); Z13.9 Encounter for screening, unspecified | CPT/HCPCS: 51700; 51701; 81003 ==

== ENCOUNTER 2025-02-18 09:14 | Outpatient (AMB) | payer OTHER, SELFPAY ==
--- OUTSIDE RECORDS SUMMARY | 2025-02-18 09:33 | XMS_ITS | Encounter Summary ---
Author Organization [facility] Address [address] [place] [address] Care Team Providers Care Senior Net Software Developer Name Role Phone Mary Jo Conteh MD Primary Care Provider [phone] Reason for Visit * Reason Onset Date Comments Advice Only 02/05/2025 Encounter Details Date Type Department Care Team ([facility] st Contact Info) Description 02/05/2025 Telephone Bariatric Surgery - [place] [address] [place] [phone] Griffin Loya MD [address] [facility] [address] [place] [place] [phone] Advice Only Social History Tobacco Use Types Packs/Day Years [...] PM EST documented as of this encounter Progress Notes * Maryuri Lerner - 02/05/2025 3:06 PM EDT Patients daughter called requesting a clearance letter to be emailed to [email or web address] ([email or web address]) clearing patient for hydro-colon therapy which is scheduled for 02/08 @ 11:00 am They apologize for such short notice as they just received notification that this was needed due tothe patient having an OPEN EXPLORATION UMBILICUS W/REPAIR OF RECURRENT UMBILICAL HERNIA in 2024 She said findings were normal but they will require clearance from Dr Loya beforehand. documented in this encounter Plan of Treatment Not on file documented as of this encounter Visit Diagnoses Not on filedocumented in this encounter Care Teams Senior Net Software Developer Relationship Specialty Start Date End Date Mary Jo Conteh MD [address] [place] [address] , [address] [facility] Physician Associ D/B/A: [facility] CARLOS MANUEL Zeng PCP - General Internal Medicine 05/28/18 documented as of this encounter
--- OUTSIDE RECORDS SUMMARY | 2025-02-18 09:33 | XMS_ITS | Clinical Summary ---
Author Organization [facility] Address [address] [place] [address] Phone Care Team Providers Care Intake Rn Name Role Phone Mary Jo Conteh MD Primary Care Provider [phone] Allergies No known active allergies Medications albuterol [...] 1 (one) time each day. Active ascorbic ymqi-bmhqgizs-zce 1,000 mg powder effervescent in packet Take [...] Encounters Date Type Department Care Team Description 02/05/2025 Telephone Bariatric Surgery - [address] [phone] Griffin Loya MD Advice Only 01/26/2025 6:31 PM EDT - 01/26/2025 10:56 PM EDT Emergency [facility] Emergency [address] [place] [phone] Chaz Jose MD Urinary tract infection without hematuria, site unspecified (Primary Dx); Constipation, unspecified constipation type; Nausea and vomiting, unspecified vomiting type Discharge Disposition: Home or Self Care 12/09/2024 9:30 AM EST - 12/09/2024 11:30 AM EST Surgery [facility] Main OR [address] [place] [phone] Griffin Loya MD OPEN EXPLORATION UMBILICUS W/REPAIR OF RECURRENT UMBILICAL HERNIA [[id number] (CPT??)] 12/09/2024 9:22 AM EST Anesthesia Event [facility] Main OR [address] [place] [address] Tomas Collazo MD Hayes, Brett L, CRNA 12/09/2024 8:08 AM EST - 12/09/2024 1:03 PM EST Hospital Encounter [facility] Main OR [address] [place] [phone] Griffin Loya MD Discharge Disposition: Home or Self Care 12/02/2024 12:07 PM EST - 12/02/2024 11:59 PM EST Hospital Encounter [facility] Xray [address] [place] [phone] Discharge Disposition: Home or Self Care 12/01/2024 10:30 AM EST Pre-Admission Testing [facility] Pre-Admission Testing [address] [place] [phone] Umbilical hernia without obstruction and without gangrene from Last 3 Months Surgical History Surgery [...] Comments Breast Cancer Screening 1960 RSV Immunization Adult Patients (1 - Risk 60-74 years 1-dose series) [...] this topic Medical Devices Implanted Type Area Systems Spec Device Identifier Shelf Expiration Date Model / Serial / Lot Mesh Ventralex St 1.7in Sm [place] W/Strap - Sn/A - [id number] Implanted:Qty: 1 on 12/09/2024 by Griffin Loya MD at [facility] Surgical Mesh Sling Implants N/A: Umbilical CR BARD - DAVOL DIV [id number] / N/A / N/A Procedures Procedure Name [...] ENDOTRACHEAL(NO CHARGE) Routine 12/09/2024 9:36 AM EST HI REPR ANT ABD HERNIA(S) ANY APPR RECUR [...] [facility] RBC 3.30(L) 3.80 - 4.80 M/mcL LAB HEMETOLOGY METHOD 01/26/2025 8:04 PM EDT [facility] Hemoglobin 7.8(L) 11.5 - 16.0 g/dL LAB HEMETOLOGY METHOD 01/26/2025 8:04 PM EDT [facility] Hematocrit 26.1(L) 35.0 - 47.0 % LAB HEMETOLOGY METHOD 01/26/2025 8:04 PM EDT [facility] MCV 80.3 79.0 - 98.0 FL LAB [facility]OLOG[facility] MCH 24.0(L) 27.0 - 32.0 pcg LAB HEMETOLOGY METHOD [facility]25 8[facility] MCHC 29.9(L) 32.0 - 37.0 g/dL LAB HEMETOLOGY METHOD 01/26/2025 8[facility] RDW 17.1(H) 11.0 - 15.0 % LAB HEMETOLOGY METHOD 01/26[facility]2025 8[facility] Platelets 451(H) 130 - 400 K/mcL LAB HEMETOLOGY METHOD [facility]2025 8[facility] MPV 10.1 7.0 - 11.0 FL LAB HEMETOLOGY METHOD 01/26/2025 8:04 PM [facility] NRBC 0.0 <1.0 % LAB HEMETOLOGY METHOD 01/26/2025 8:04 PM [facility] NRBC Absolute 0.00 <0.10 K/mcL LAB HEMETOLOGY METHOD 01/26/2025 8:04 PM [facility] Neutrophils Relative 77.2 % LAB HEMETOLOGY METHOD 01/26/2025 8:04 PM [facility] Lymphocytes Relative 15.1 % LAB HEMETOLOGY METHOD [facility] Monocytes Relative 5.7 % LAB HEMETOLOGY METHOD 01/26/2025 8:04 PM [facility] Eosinophils Relative 1.0 % LAB HEMETOLOGY METHOD 01/26/2025 8:04 PM [facility] Basophils Relative 0.4 % LAB HEMETOLOGY METHOD 01/26/2025 8:04 PM EDT [facility] Immature Granulocytes Relative 0.6 % LAB HEMETOLOGY METHOD 01/26/2025 8:04 PM EDT [facility] Neutrophils Absolute 5.26 1.50 [...] [facility] [address] [place] [address], * (ABNORMAL) Comprehensive metabolic panel (01/26/2025 7:27 PM EDT) Sodium 142 133 - 145 mmol/L LAB CHEMISTRY METHOD 01/26/2025 8:28 PM [facility] Potassium 3.7 3.5 - 5.5 mmol/L LAB CHEMISTRY METHOD 01/26/2025 8:28 PM [facility] Chloride 108 96 - 110 mmol/L LAB CHEMISTRY METHOD 01/26/2025 8:28 PM [facility] CO2 23 21 - 32 mmol/L LAB CHEMISTRY METHOD 01/26/2025 8:28 PM [facility] Anion Gap 11 3 - 11 LAB CHEMISTRY METHOD 01/26/2025 8:28 PM [facility] Glucose 111(H) 70 - 100 mg/dL LAB CHEMISTRY METHOD 01/26/2025 8:28 PM [facility] BUN 17 5 - 25 mg/dL LAB CHEMISTRY METHOD 01/26/2025 8:28 PM [facility] Creatinine 0.67 0.50 - 1.10 mg/dL LAB CHEMISTRY METHOD 01/26/2025 8:28 PM [facility] eGFR 97 >=60 mL/min/1. 73m2 LAB CHEMISTRY METHOD 01/26/2025 8:28 PM [facility] Comment:Calculation based on the??Chronic Kidney Disease Epidemiology Collaboration (CKD-EPI) equation refit??without adjustment for race. BUN/Creatinine Ratio 25.4 LAB CHEMISTRY METHOD 01/26/2025 8:28 PM [facility] Calcium 9.2 8.5 - 10.5 mg/dL LAB CHEMISTRY METHOD 01/26/2025 8:28 PM [facility] AST (SGOT) 21 10 - 42 unit/L LAB CHEMISTRY METHOD 01/26/2025 8:28 PM [facility] ALT (SGPT) 18 10 - 60 unit/L LAB CHEMISTRY METHOD 01/26/2025 8:28 PM [facility] Alkaline Phosphatase 101 42 - 121 unit/L LAB CHEMISTRY METHOD 01/26/2025 8:28 PM EDT [facility] Total Protein 7.0 6.0 - 8.0 g/dL LAB CHEMISTRY METHOD 01/26/2025 8:28 PM EDT [facility] Albumin 3.4 3.2 - [...] [facility] [address] [place] [address], [place] [phone] * (ABNORMAL) Urinalysis with reflex microscopic and culture (01/26/2025 7:15 PM EDT) Only the most recent of2 resultswithin the time period is included. Specific [place] Urine 1.017 1.003 - 1.030 LAB URINALYSIS - AUTOMATED METHOD 01/26/2025 7:49 PM EDT [facility] pH, Urine 6.0 5.0 - 8.0 pH LAB URINALYSIS - AUTOMATED METHOD 01/26/2025 7:49 PM EDT [facility] Leukocytes, Urine Trace(A) Negative LAB URINALYSIS - AUTOMATED METHOD 01/26/2025 7:49 PM [facility] Nitrite, Urine Negative Negative LAB URINALYSIS - AUTOMATED METHOD [facility]25 7[facility] Protein, Urine Negative <=Trace mg/dL LAB URINALYSIS - AUTOMATED METHOD 01/26/2025 7:49 PM [facility] Glucose, Urine Negative Negative mg/dL LAB URINALYSIS - AUTOMATED METHOD 01/26/2025 7:49 PM [facility] Ketones, Urine Negative Negative mg/dL LAB URINALYSIS - AUTOMATED METHOD 01/26/2025 7:49 PM [facility] Urobilinogen , Urine 0.2 0.2 - 1.0 mg/dL LAB URINALYSIS - AUTOMATED METHOD 01/26/2025 7:49 PM [facility] Bilirubin, Urine Negative Negative LAB URINALYSIS - AUTOMATED METHOD 01/26/2025 7:49 PM [facility] Blood, Urine Negative Negative LAB URINALYSIS - AUTOMATED METHOD 01/26/2025 7:49 PM [facility] RBC, Urine 5.8(H) 0 - 4 /HPF LAB URINALYSIS - AUTOMATED METHOD 01/26/2025 7:49 PM [facility] WBC, Urine 3.8 0 - 4 /HPF LAB URINALYSIS - AUTOMATED METHOD 01/26/2025 7:49 PM [facility] Squamous Epithelial, Urine 59 0 - 60 /LPF LAB URINALYSIS - AUTOMATED METHOD 01/26/2025 7:49 PM [facility] Bacteria, Urine Moderate(A) Negative /HPF LAB URINALYSIS - AUTOMATED METHOD 01/26/2025 7:49 PM [facility] Hyaline Casts, Urine 1.2 0 - 3 /LPF LAB URINALYSIS - AUTOMATED METHOD 01/26/2025 7:49 PM [facility] Urine Urine specimen obtained by clean catch procedure / Unknown Non-blood Collection / Unknown 01/26/2025 7:15 PM EDT 01/26/2025 7:40 PM EDT us Chaz Jose MD LAB URINE ORDERABLES Final Resu lt Performing Organization Address City/[facility]/ZIP Co de Phone Number [facility] [address] [place] [address], [place] [phone] * [place] urine culture tube (01/26/2025 7:15 [...] ORDERABLES Final Resu lt Performing Organization Address [facility]/ZIP Co de Phone Number [facility] [address] [place] [address], [place] [phone] * (ABNORMAL) Culture urine (01/26/2025 7:15 PM [...] us Chaz Jose MD LAB MICROBIOLOGY - [facility] Final Result [facility] [address] [place] [address], [place] [phone] * TH AN ENDOTRACHEAL(NO CHARGE) (12/09/2024 9:36 [...] ABO Group O 12/09/2024 10:42 AM EST [facility] Rh Type Positive 12/09/2024 10:42 AM EST [facility] Antibody Screen Negative 12/09/2024 10:42 AM EST [facility] Blood Venous blood specimen / Unknown Venipuncture / Unknown 12/09/2024 9:20 AM EST 12/09/2024 9:21 AM EST us Griffin Loya MD LAB BLOOD BANK TEST ORDERABL ES Final Result [facility] [address] [place] [address], [place] [phone] * XR Chest 2 Views (12/02/2024 12:12 [...] BLAIR BLOOM Reviewed and Electronically Signed By: BALIR BLOOM Signed Date: 12/02/2024 12:30 ET Workstation ID: [id number] Transcribed By: Self Edit Transcribed Date: 12/02/2024 [...] Signed Date: 12/02/2024 12:30 ET Workstation ID: [id number] Transcribed By: Self Edit Transcribed Date: 12/02/2024 12:30 ET Surekha RICKETTS IMG XR PROCEDURES Final Resu lt * ECG 12 lead (12/02/2024 11:26 AM EST) Ventricular Rate ECG 86 BPM GEMUSE Atrial Rate 86 BPM GEMUSE P-R Interval 148 ms GEMUSE QRS Duration 92 ms GEMUSE Q-T Interval 366 ms GEMUSE QTc 437 ms GEMUSE P Wave [place] 30 degrees GEMUSE R [place] -24 degrees GEMUSE T [place] 31 degrees GEMUSE ECG Interpretation Sinus rhythm [...] mg/dL LAB CHEMISTRY METHOD 12/02/2024 12:52 PM [facility] Blood Venous blood specimen / Unknown Venipuncture / Unknown 12/02/2024 11:07 AM EST 12/02/2024 12:07 PM EST us Surekha RICKETTS LAB BLOOD ORDERABLES Final R esult [facility] [address] [place] [address], [place] [phone] * (ABNORMAL) BMP (12/02/2024 11:07 AM EST) Sodium 136 133 - 145 mmol/L LAB CHEMISTRY METHOD 12/02/2024 12:52 PM [facility] Potassium 3.8 3.5 - 5.5 mmol/L LAB CHEMISTRY METHOD 12/02/2024 12:52 PM [facility] Chloride 103 96 - 110 mmol/L LAB CHEMISTRY METHOD 12/02/2024 12:52 PM [facility] CO2 26 21 - 32 mmol/L LAB CHEMISTRY METHOD 12/02/2024 12:52 PM [facility] Anion Gap 7 3 - 11 LAB CHEMISTRY METHOD 12/02/2024 12:52 PM [facility] Glucose 146(H) 70 - 100 mg/dL LAB CHEMISTRY METHOD 12/02/2024 12:52 PM [facility] BUN 15 5 - 25 mg/dL LAB CHEMISTRY METHOD 12/02/2024 12:52 PM [facility] Creatinine 0.72 0.50 - 1.10 mg/dL LAB CHEMISTRY METHOD 12/02/2024 12:52 PM [facility] eGFR 92 >=60 mL/min/1. 73m2 LAB CHEMISTRY METHOD 12/02/2024 12:52 PM [facility] Comment:Calculation based on the??Chronic Kidney Disease Epidemiology Collaboration (CKD-EPI) equation refit??without adjustment for race. BUN/Creatinine Ratio 20.8 LAB CHEMISTRY METHOD 12/02/2024 12:52 PM EST [facility] Calcium 10.0 8.5 - 10.5 mg/dL LAB CHEMISTRY METHOD 12/02/2024 12:52 PM EST [facility] Blood Venous blood specimen / Unknown Venipuncture / Unknown 12/02/2024 11:07 AM EST 12/02/2024 12:07 PM EST us Surkeha RICKETTS LAB BLOOD ORDERABLES Final R esult [facility] [address] [place] [address], from Last [address] 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 Care Teams Intake Rn Relationship Specialty Start Date End Date Mary Jo Conteh MD [address] [place] [address] , [address] Physician Associ D/B/A: [facility] [place], [place] PCP - General Internal Medicine 05/28/18
--- OUTSIDE RECORDS SUMMARY | 2025-02-18 09:33 | XMS_ITS | Data Portability ---
Author Organization [place] - [facility], Allergy Address [address] [address] Assessment Encounter Date Assessment Date Assessment LastModified [...] recorded. Imaging MRI, neck, w/wo contrast - german speaker, hx of right parotidecto my for [...] ast No observ ation record ed. [email or web address] [address], [address], 10/09/2024 09:09:01 Result Notes None recorded. 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 - [facility] 13:58:22 Problem Notes None recorded. Procedures Surgical [...] 09/05/2024 MRI, neck, w/wo contrast completed [email or web address] [facility] [address] [place], [address], 10/09/2024 09:09:01 Procedure Notes None recorded. Medical [...] Updated DateTime 07/08/2024 152.4 cm 29.3 kg/m2 79736.86 g Marc Odonnell [place] - [facility] 07/08/2024 13:41:16 Social History None recorded. Functional Status None recorded. Mental Status None recorded. Family History Nothing Reported. Medical History No medical history recorded. Gynecological HistoryNo gynecological history recorded. Obstetrics History GPAL:G 0 P 0 0 0 0 Past Encounters Encounter ID Performer Location Encounter Start Date Encounter Closed Date Diagnosis/Indication Diagnosis SNOMED-CT Code Diagnosis ICD10 Code Diagnosis Note [id number] CHRIS WOO MD [facility] [address] [phone] 07/08/2024 13:31:55 07/08/2024 14:01:53 History of malignant neoplasm of parotid gland 9847508585 58349 Z85.818 Health Concerns Section Related Observation LastModified by Organization Detai ls LastModified Time None Recorded Concern Status LastModified by Organization Details LastModified Time None Recorded Advance Directives Directive None Recorded Payers Encounter Date Sequence Insurance Name Policy Number Policy Madrigal Covered Member ID Madrigal Member ID Guarantor Name 07/08/2024 1 [facility] Maura Travis [id number] Maura Travis Notes Date Note Type Note Provider Name and Address Organization Details Recorded Time 07/08/2024 text/html german - IPADhx of right deep lobe parotid [...] for a follicular nodule CHRIS WOO MD [address] [place] [address], [phone], [facility] - [facility] 07/08/2024 14:01:47 OBGyn Episode No OBEpisode recorded.
--- NOTE | 2025-02-18 09:36 | AM.OFFVISNUR ---
Intake Visit Reasons: IC instillation Allergies phentermine Allergy (Intermediate, Verified 01/29/25 10:23) Palpitations Office Procedures Bladder/Catheter Procedure Details: Patient presents to office for IC instillation #. Patient reports relief in symptoms from IC instillations. Patient to make future IC appointments at checkout? 14fr straight cath used to instill: 10mls bupivicaine 0.50% 2mls heparin 10,000 units 10 mls lidocaine 2% lidocaine urojet 1ml solumedrol 59076-Txeodwiuzr of Bladder 08619-Jrsosb Bladder Catheter Procedure code (CPT) selection complete Assessment & Plan Assessment & Plan Orders: Orders AMB Bladder/Catheter Procedure Today N39.41 - Urge incontinence, R10.2 - Pelvic and perineal pain, R30.0 - Dysuria Coding CPT Codes Bladder/Catheter Procedure - CPT: 50656-Pplqfdvplr of Bladder ([id number]) Bladder/Catheter Procedure - CPT: 98715-Bnjcaq Bladder Catheter ([id number])
--- NOTE | 2025-02-18 09:43 | AM.OFFVISNUR ---
Intake Visit Reasons: IC instillation Allergies phentermine Allergy (Intermediate, Verified 01/29/25 10:23) Palpitations Office Procedures Bladder/Catheter Procedure Details: Patient presents to office for IC instillation #2 of bi monthly. Patient reports relief in symptoms from IC instillations. Patient to make future IC appointments at checkout? 14fr straight cath used to instill: 10mls bupivicaine 0.50% 2mls heparin 10,000 units 10 mls lidocaine 2% lidocaine urojet 1ml solumedrol 57740-Tjvitsczbv of Bladder 23627-Sbbtfx Bladder Catheter Procedure code (CPT) selection complete Results AMB Urinalysis, Automated UA Leukoctes 125 [place]son/uL Last Edit by Jenni Cobb RN on 02/18/25 09:40 UA Nitrite Negative Last Edit by Jenni Cobb RN on 02/18/25 09:40 UA Urobilinogen 1 mg/dL Last Edit by Jenni Cobb RN on 02/18/25 09:40 UA Protein 30 mg/dL Last Edit by Jenni Cobb RN on 02/18/25 09:40 UA pH 6 Last Edit by Jenni Cobb RN on 02/18/25 09:40 UA Blood 0 Brady/uL Last Edit by Jenni Cobb RN on 02/18/25 09:40 UA Specific [place] 1.0 Last Edit by Jenni Cobb RN on 02/18/25 09:40 UA Ketone Negative Last Edit by Jenni Cobb RN on 02/18/25 09:40 UA Bilirubin 0 mg/dL Last Edit by Jenni Cobb RN on 02/18/25 09:40 UA Glucose 0 mg/dL Last Edit by Jenni Cobb RN on 02/18/25 09:40 Assessment & Plan Assessment & Plan Orders: Orders AMB Bladder/Catheter Procedure Today N39.41 - Urge incontinence, R10.2 - Pelvic and perineal pain, R30.0 - Dysuria AMB Urinalysis Automated Today Z13.9 - Encounter for screening, unspecified Coding CPT Codes Bladder/Catheter Procedure - CPT: 74771-Akswgnltjh of Bladder ([id number]) Bladder/Catheter Procedure - CPT: 95198-Lbzbpi Bladder Catheter ([id number])
== END 2025-02-18 09:56 | disposition home or self-care (01) ==
PROVIDERS: PCP Internal Medicine; Visit Provider Urology
DX: Z13.9 Encounter for screening, unspecified (principal)

== ENCOUNTER → 2025-02-18 09:14 | Outpatient (BNVA) | payer OTHER, SELFPAY | PROVIDERS: PCP Internal Medicine; Visit Provider Urology | DX: N39.41 Urge incontinence (principal); R10.2 Pelvic and perineal pain; R30.0 Dysuria | CPT/HCPCS: 51700; 51701; 81003 ==

== ENCOUNTER 2025-03-02 10:15 | Outpatient (AMB) | payer OTHER, SELFPAY ==
--- NOTE | 2025-03-02 10:30 | A.OFFVIS_ITS ---
Vital Signs 03/02/25 10:47 Height 5 ft 1 in Weight 150 lb BMI 28.3 BP 146/83 H Blood Pressure Location Lt brachial Position Sitting Pulse 74 Intake Visit Reasons: follow up Intake Note: Patient is seen in office for over due follow up, post exc right axilla lipoma 08/21/23. Pt c/o: per pt axilla has healed, would like to consult with regarding some abdominal pain for about one year, is schedule for a colonoscopy with Dr Chatman on 03/17/25 mm sched:10/20/25 Binding Folder Machine Required: Yes Binding Folder Machine Language: Senior Air Director Services: Binding Folder Machine Present Binding Folder Machine Name: Surekha WILKERSON Information Interpreted: non-clinical & clinical Accompanied by: Self / Same As Patient Allergies phentermine Allergy (Intermediate, Verified 03/02/25 10:48) Palpitations Medication List - Last Reconciled 03/02/25 by Florencio Wells MD acetaminophen 1,000 mg (2 x 500 mg) PO Q8H PRN albuterol sulfate 2.5 mg (3 mL) inhalation RQ4H WHILE AWAKE albuterol sulfate 90 mcg/actuation 2 puffs inhalation Q6H PRN ascorbic acid (vitamin C) (Vitamin C) 500 mg PO BID blood sugar diagnostic (FreeStyle Lite Strips) to test 2 to 3 times a day as directed blood-glucose meter (FreeStyle Lite Meter kit) As directed calcium citrate 500 mg PO BID cholecalciferol (vitamin D3) 1,250 mcg PO QWEEK esomeprazole magnesium 40 mg PO DAILY folic acid 1 mg PO DAILY 90 days hyoscyamine sulfate 0.125 mg PO BID-QID PRN incontinence pad, liner, disp As directed lancets (FreeStyle Lancets) Use 1 lancet once a day lancets (Pure Comfort Safety Lancets) As directed metoprolol succinate ER 25 mg PO DAILY 90 days nebulizers (AeroEclipse II Nebulizer) As directed ondansetron 4 mg PO Q8H PRN phenazopyridine (Pyridium) 100 mg PO TID PRN 5 days pravastatin 20 mg PO DAILY 90 days sod sulf-pot chloride-mag sulf 1.479-0.188- 0.225 gram (Sutab) PO PER PKG DIR sodium,potassium,mag sulfates 17.5-3.13-1.6 gram (Suprep Bowel Prep Kit) DILUTE; drink 1/2 at 6-8 pm and half at 11 PM- 1AM syringe with needle ([employer] Luer Lock Syringe with needle) As directed HPI Comments Details: 64-year-old female patient returning for evaluation of abdominal pain which has been persistent for the past several months. She was made several visits to the emergency department at [facility] without any significant findings identified. She does have a history of esophagitis and previously underwent gastric bypass surgery. CT findings were consistent with constipation. She reports taking laxatives in his moving her bowels on a daily basis. She was being evaluated by Gastroenterology (Dr. Chatman) in his scheduled for a colonoscopy at the end of this month (03/17/2025). She has a family history of pancreatic cancer in her father in his concerned that she also has cancer. The pain is reported to be diffusely throughout the abdomen but most significantly in the right lower quadrant. She denies nausea or vomiting, bloody stools. She has been evaluated for microscopic hematuria by Dr. Aburto. 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 Asthma Paget's disease Fibromyalgia Nontoxic multinodular goiter Osteoarthritis HTN (hypertension) Surgical History History of excision of mass (08/21/23) History of removal of laparoscopic gastric banding device History of cystoscopy History of lobectomy of thyroid Mass of right parotid gland H/O laparoscopic adjustable gastric banding Hx of lithotripsy History of dilation and curettage History of delivery Hx of tonsillectomy Hx of gastric bypass Family History Mother Diabetes HTN (hypertension) Father Pancreatic cancer Diabetes HTN (hypertension) Maternal Grandmother Myocardial infarction Cancer Brother Pancreatic cancer Sister Uterine cancer Social History Household Members: Family Housing: House Are you a primary veterinarian laboratory animal care to a significant other at home: No Do you presently have visiting nurse or other home services: No Alcohol intake: never Patient Tobacco Use Status: Former Tobacco user Tobacco use type: Cigarette e-Cigarette/Vaping Use: Never Used Second Hand Smoke Exposure: No service: No Current occupational status: unemployed and disabled Sexual orientation: Straight/Heterosexual Gender identity: Female Cognitive needs: No Hearing needs: No Vision needs: Yes (glasses) Female Reproductive History Menstrual Age of Menarche: 10 Review of Systems Const All systems reviewed & are unremarkable except as noted in HPI and below Physical Exam Vital Signs: Last Vital Signs Pulse 74 03/02/25 10:47 BP 146/83 H 03/02/25 10:47 BMI result Body Mass Index 28.3 Const General: no acute distress Nutritional Appearance: well nourished Orientation/consciousness: patient oriented x3 Limitations: no limitations Resp Effort & Inspection: normal respiratory effort, no audible wheezes, no cough and no respiratory distress GI Other: No palpable masses, several midline incisions identified and trocar incisions, no definite hernia noted. Inspection: Yes normal to inspection Palpation (GI): Soft to palpation, Tenderness to palpation present (GI) in the LLQ and in the RLQ, no guarding, not rigid and No hepatosplenomegaly present Neuro General: patient oriented x3 Extrem Other: No edema Assessment & Plan Assessment & Plan (1) Generalized abdominal pain: Code(s): R10.84 - Generalized abdominal pain Category: Medical Plan 64-year-old female patient with diffuse abdominal pain of unknown etiology. Prior workup has been negative to date. She was scheduled for colonoscopy later on this month which certainly should be helpful. Examination today reveals some mild tenderness to deep palpation however no peritoneal signs to indicate an acute abdomen. No palpable masses appreciated. We will await the results of the colonoscopy. Patient will follow up after the colonoscopy. Coding Level of Care Code Est Pt Level 3 (57255) Diagnoses Generalized abdominal pain R10.84
[2025-03-02 10:47] VITALS: BP 146/83; PULSE 74; BMI 28.3
--- OUTSIDE RECORDS SUMMARY | 2025-03-02 12:10 | XMS_ITS | Encounter Summary ---
Author Organization [facility] Address [address] [place] [address] Care Team Providers Care Hygiene Teacher Name Role Phone Mary Jo Cnoteh MD Primary Care Provider [phone] Reason for Visit * Reason Onset Date Comments Advice Only 02/05/2025 Encounter Details Date Type Department Care Team ([facility] st Contact Info) Description 02/05/2025 Telephone Bariatric Surgery - [place] [address] [place] [phone] Griffin Loya MD [address] [facility] [address] [place] [address] [place] [address] Advice Only Social History Tobacco Use Types [...] a clearance letter to be emailed to [email or web address] ([email or web address]) clearing patient for hydro-colon therapy which [...] on filedocumented in this encounter Care Teams Hygiene Teacher Relationship Specialty Start Date End Date Mary Jo Conteh MD [address] [place] [address] , [address] [facility] Physician Associ D/B/A: [facility] CARLOS MANUEL Zeng PCP - General Internal Medicine 05/28/18 documented as of this encounter
--- OUTSIDE RECORDS SUMMARY | 2025-03-02 12:10 | XMS_ITS | Clinical Summary ---
Author Organization 175 [facility] Address [address] [place] [address] Phone Care Team Providers Care Band Ripsaw Operator Name Role Phone Mary Jo Conteh MD Primary Care Provider [phone] Allergies No known active allergies Medications albuterol [...] 1 (one) time each day. Active ascorbic ugey-ycqpileg-jpx 1,000 mg powder effervescent in packet Take [...] for 7 days. 21 each 01/27/20 25 025 Active Problems Problem Noted Date Diagnosed Date Facial rhytids 10/03/2020 Calculus of gallbladder with chronic cholecystitis without obstruction 09/14/2020 Asthma 05/29/2018 Hypercholesteremia 05/29/2018 Obesity, Class I, BMI 30-34.9 05/29/2018 Resolved Problems Problem Noted Date Diagnosed Date Resolved Date Umbilical hernia 11/19/2024 12/09/2024 Encounters Date Type Department Care Team Description 02/05/2025 Telephone Bariatric Surgery - [address] [address] Griffin Loya MD Advice Only 01/26/2025 6:31 PM EDT - 01/26/2025 10:56 PM EDT Emergency [facility] Emergency [address] [place] [phone] Chaz Jose MD Urinary tract infection without hematuria, site unspecified (Primary Dx); Constipation, unspecified constipation type; Nausea and vomiting, unspecified vomiting type Discharge Disposition: Home or Self Care 12/09/2024 9:30 AM EST - 12/09/2024 11:30 AM EST Surgery [facility] Main OR [address] [place] [phone] Griffin Loya MD OPEN EXPLORATION UMBILICUS W/REPAIR OF RECURRENT UMBILICAL HERNIA [[id number] (CPT??)] 12/09/2024 9:22 AM EST Anesthesia Event [facility] Main OR [address] [place] [phone] Tomas Collazo MD Hayes, Brett L, CRNA 12/09/2024 8:08 AM EST - 12/09/2024 1:03 PM EST Hospital Encounter [facility] Main OR [address] [place] [phone] Griffin Loya MD Discharge Disposition: Home or Self Care 12/02/2024 12:07 PM EST - 12/02/2024 11:59 PM EST Hospital Encounter [facility] Xray [address] [place] [phone] Discharge Disposition: Home or Self Care from [...] age to complete this topic Meningococcal B Vaccine Aged Out No l onger eligible based on patient's age to complete this topic RSV Immunization Patients Under 20 months Aged Out No longer eligible based on patient's age to complete this topic Varicella Vaccines Aged Out No longer eligible based on patient's age to complete this topic Medical Devices Implanted Type Area Lead Architect Device Identifier Shelf Expiration Date Model / Serial / Lot Mesh Ventralex St 1.7in Sm [employer] W/Strap - Sn/A - [id number] Implanted:Qty: 1 on 12/09/2024 by Griffin Loya MD at [facility] Surgical Mesh Sling Implants N/A: Umbilical CR BARD - DAVOL DIV [id number] / N/A / N/A Procedures Procedure Name [...] ENDOTRACHEAL(NO CHARGE) Routine 12/09/2024 9:36 AM EST [place] REPR ANT ABD HERNIA(S) ANY APPR RECUR [...] Santos DO on 01/26/2025 21:44:[address] PROCEDURES Britney l Result * (ABNORMAL) CBC auto differential (01/26/2025 7:27 PM EDT) Only the most recent of2 resultswithin the time period is included. WBC 6.8 4.8 - 10.8 K/mcL LAB HEMETOLOGY METHOD [facility]/26[facility]2025 [facility] RBC 3.30(L) 3.80 - 4.80 M/mcL LAB HEMETOLOGY METHOD 01/26/2025 8:04 PM [facility] Hemoglobin 7.8(L) 11.5 - 16.0 g/dL LAB HEMETOLOGY METHOD 01/26/2025 8:04 PM [facility] Hematocrit 26.1(L) 35.0 - 47.0 % LAB HEMETOLOGY METHOD 01/26/2025 8:04 PM [facility] MCV 80.3 79.0 - 98.0 FL LAB HEMETOLOGY METHOD 01/26/2025 8:04 PM [facility] MCH 24.0(L) 27.0 - 32.0 pcg LAB HEMETOLOGY METHOD 01/26/2025 8:04 PM [facility] MCHC 29.9(L) 32.0 - 37.0 g/dL LAB HEMETOLOGY METHOD 01/26/2025 8:04 PM [facility] RDW 17.1(H) 11.0 - 15.0 % LAB HEMETOLOGY METHOD 01/26/2025 8:04 PM [facility] Platelets 451(H) 130 - 400 K/mcL LAB HEMETOLOGY METHOD 01/26/2025 8:04 PM [facility] MPV 10.1 7.0 - 11.0 FL LAB HEMETOLOGY METHOD 01/26/2025 8:04 PM [facility] NRBC 0.0 <1.0 % LAB HEMETOLOGY METHOD 01/26/2025 8:04 PM [facility] NRBC Absolute 0.00 <0.10 K/mcL LAB HEMETOLOGY METHOD 01/26/2025 8:04 PM [facility] Neutrophils Relative 77.2 % LAB HEMETOLOGY METHOD 01/26/2025 8:04 PM [facility] Lymphocytes Relative 15.1 % LAB HEMETOLOGY METHOD 01/26/2025 8:04 PM [facility] Monocytes Relative 5.7 % LAB HEMETOLOGY METHOD 01/26/2025 8:04 PM [facility] Eosinophils Relative 1.0 % LAB HEMETOLOGY METHOD 01/26/2025 8:04 PM [facility] Basophils Relative 0.4 % LAB HEMETOLOGY METHOD 01/26/2025 8:04 PM [facility] Immature Granulocytes Relative 0.6 % LAB HEMETOLOGY METHOD 01/26/2025 8:04 PM [facility] Neutrophils Absolute 5.26 1.50 - 7.00 K/mcL LAB HEMETOLOGY METHOD 01/26/2025 8:04 PM EDT [facility] Lymphocytes Absolute 1.03 1.00 - 5.00 K/mcL LAB HEMETOLOGY METHOD 01/26/2025 8:04 PM EDT [facility] Monocytes Absolute 0.39 0.20 - 1.00 K/mcL LAB HEMETOLOGY METHOD 01/26/2025 8:04 PM EDT [facility] Eosinophils Absolute 0.07 0.00 - 0.50 K/[facility] [place] [facility] LAB HEMETOLOGY METHOD 01/26/2025 8:04 PM EDT [facility] Basophils Absolute 0.03 0.00 - 0.20 K/[facility] [place] [facility] LAB HEMETOLOGY METHOD 01/26/2025 8:04 PM EDT [facility] Immature Granulocytes Absolute 0.04(H) 0.00 - 0.03 K/[facility] LAB HEMETOLOGY METHOD 01/26/2025 8:04 PM EDT [facility] Blood Venous blood specimen / Unknown Venipuncture / Unknown 01/26/2025 7:27 PM EDT 01/26/2025 7:40 PM EDT us Chaz Jose MD LAB BLOOD ORDERABLES Final Resu lt [facility] [address] [place] [address], * (ABNORMAL) Comprehensive metabolic panel (01/26/2025 7:27 PM EDT) Sodium 142 133 - 145 mmol/L LAB CHEMISTRY METHOD 01/26/2025 8:28 PM EDT [facility] Potassium 3.7 3.5 - 5.5 mmol/L LAB CHEMISTRY METHOD 01/26/2025 8:28 PM EDT [facility] Chloride 108 96 - 110 mmol/L LAB CHEMISTRY METHOD 01/26/2025 8:28 PM [facility] CO2 23 21 - 32 mmol/L LAB CHEMISTRY METHOD 01/26/2025 8:28 PM [facility] Anion Gap 11 3 - 11 LAB CHEMISTRY METHOD 01/26/2025 8:28 PM [facility] Glucose 111(H) 70 - 100 mg/dL LAB CHEMISTRY METHOD 01/26/2025 8:28 PM [facility] BUN 17 5 - 25 mg/dL LAB CHEMISTRY METHOD 01/26/2025 8:28 PM [facility] Creatinine 0.67 0.50 - 1.10 mg/dL LAB CHEMISTRY METHOD 01/26/2025 8:28 PM [facility] eGFR 97 >=60 mL/min/1. 73m2 LAB CHEMISTRY METHOD 01/26/2025 8:28 PM [facility] Comment:Calculation based on the??Chronic Kidney Disease Epidemiology Collaboration (CKD-EPI) equation refit??without adjustment for race. BUN/Creatinine Ratio 25.4 LAB CHEMISTRY METHOD 01/26/2025 8:28 PM [facility] Calcium 9.2 8.5 - 10.5 mg/dL LAB CHEMISTRY METHOD 01/26/2025 8:28 PM [facility] AST (SGOT) 21 10 - 42 unit/L LAB CHEMISTRY METHOD 01/26/2025 8:28 PM [facility] ALT (SGPT) 18 10 - 60 unit/L LAB CHEMISTRY METHOD 01/26/2025 8:28 PM [facility] Alkaline Phosphatase 101 42 - 121 unit/L LAB CHEMISTRY METHOD 01/26/2025 8:28 PM [facility] Total Protein 7.0 6.0 - 8.0 g/dL LAB CHEMISTRY METHOD 01/26/2025 8:28 PM [facility] Albumin 3.4 3.2 - 5.0 g/dL LAB CHEMISTRY METHOD 01/26/2025 8:28 PM EDT [facility] Total Bilirubin 0.2 0.0 - 1.4 mg/dL LAB CHEMISTRY METHOD 01/26/2025 8:[facility] Blood Venous blood specimen / Unknown Venipuncture / Unknown 01/26/2025 7:27 PM EDT 01/26/2025 7:40 PM EDT us Chaz Jose MD LAB BLOOD ORDERABLES Final Resu lt [facility] [address] [place] [address], [place] [phone] * (ABNORMAL) Urinalysis with reflex microscopic and culture (01/26/2025 7:15 PM EDT) Only the most recent of2 resultswithin the time period is included. Specific [place] Urine 1.017 1.003 - 1.030 LAB URINALYSIS - AUTOMATED METHOD 01/26/2025 7:49 PM [facility] pH, Urine 6.0 5.0 - 8.0 pH LAB URINALYSIS - AUTOMATED METHOD 01/26/2025 7:49 PM [facility] Leukocytes, Urine Trace(A) Negative LAB URINALYSIS - AUTOMATED METHOD 01/26/2025 7:49 PM [facility] Nitrite, Urine Negative Negative LAB URINALYSIS - AUTOMATED METHOD 01/26/2025 7:49 PM [facility] Protein, Urine Negative <=Trace mg/dL LAB URINALYSIS - AUTOMATED METHOD 01/26/2025 7:49 PM [facility] Glucose, Urine Negative Negative mg/dL LAB URINALYSIS - AUTOMATED METHOD 01/26/2025 7:49 PM [facility] Ketones, Urine Negative Negative mg/dL LAB URINALYSIS - AUTOMATED METHOD 01/26/2025 7:49 PM EDT [facility] Urobilinogen , Urine 0.2 0.2 - 1.0 mg/dL LAB URINALYSIS - AUTOMATED METHOD 01/26/2025 7:49 [facility] Bilirubin, Urine Negative Negative LAB URINALYSIS - AUTOMATED METHOD 01/26/2025 7:49 [facility] Blood, Urine Negative Negative LAB URINALYSIS - AUTOMATED METHOD 01/26/2025 7:49 PM [facility] RBC, Urine 5.8(H) 0 - 4 /HPF LAB URINALYSIS - AUTOMATED METHOD 01/26/2025 7:49 PM [facility] WBC, Urine 3.8 0 - 4 /HPF LAB URINALYSIS - AUTOMATED METHOD 01/26/2025 7:49 PM [facility] Squamous Epithelial, Urine 59 0 - 60 /LPF LAB URINALYSIS - AUTOMATED METHOD 01/26/2025 7:49 PM [facility] Bacteria, Urine Moderate(A) Negative /HPF LAB URINALYSIS - AUTOMATED METHOD 01/26/2025 7:49 PM [facility] Hyaline Casts, Urine 1.2 0 - 3 /LPF LAB URINALYSIS - AUTOMATED METHOD 01/26/2025 7:49 PM [facility] Urine Urine specimen obtained by clean catch procedure / Unknown Non-blood Collection / Unknown 01/26/2025 7:15 PM EDT 01/26/2025 7:40 PM EDT us Chaz Jsoe MD LAB URINE ORDERABLES Final Resu lt [facility] [address] [place] [address], * Rebolledo urine culture tube (01/26/2025 7:15 PM EDT) Only the most recent of2 resultswithin the time period is included. Extra Tube Hold for add-ons. 01/26/2025 9:01 PM EDT [facility] Comment:Auto resulted. Urine Urine specimen obtained by clean catch procedure / Unknown Non-blood Collection / Unknown 01/26/2025 7:15 PM EDT 01/26/2025 7:40 PM EDT us Chaz Jose MD LAB URINE ORDERABLES Final Resu lt [facility] [address] [place] [address], * (ABNORMAL) Culture urine (01/26/2025 7:15 PM EDT) Pathologist [facility] Culture, Urine >100,000 CFU/mL Escherichia coli(A) JAIME 01/28/2025 10:19 AM EDT [facility] Urine Urine specimen obtained by [...] Chaz Jose MD LAB MICROBIOLOGY - GENERAL ORDCarmela CHILDRESS Final Result [facility] [address] [place] [address], [place] [phone] * TH AN ENDOTRACHEAL(NO CHARGE) (12/09/2024 9:36 [...] ABO Group O 12/09/2024 10:42 AM EST [facility] Rh Type Positive 12/09/2024 10:42 AM EST [facility] Antibody Screen Negative 12/09/2024 10:42 AM EST [facility] Blood Venous blood specimen / Unknown Venipuncture / Unknown 12/09/2024 9:20 AM EST 12/09/2024 9:21 AM EST us Griffin Loya MD LAB BLOOD BANK TEST ORDERABL ES Final Result [facility] ([facility]) [facility] [address] [place] [address], [place] [phone] * XR Chest 2 Views (12/02/2024 12:12 [...] Signed Date: 12/02/2024 12:30 ET Workstation ID: [id number] Transcribed By: Self Edit Transcribed Date: 12/02/2024 [...] Signed Date: 12/02/2024 12:30 ET Workstation ID: [id number] Transcribed By: Self Edit Transcribed Date: 12/02/2024 12:30 ET Surekha RICKETTS IMG XR PROCEDURES Final Resu lt * ECG 12 lead (12/02/2024 11:26 AM EST) Ventricular Rate ECG 86 BPM GEMUSE Atrial Rate 86 BPM GEMUSE P-R Interval 148 ms GEMUSE QRS Duration 92 ms GEMUSE Q-T Interval 366 ms GEMUSE QTc 437 ms GEMUSE P Wave [place] 30 degrees GEMUSE R [place] -24 degrees GEMUSE T [place] 31 degrees GEMUSE ECG Interpretation Sinus rhythm [...] LAB CHEMISTRY METHOD 12/02/2024 12:52 PM EST [facility] Blood Venous blood specimen / Unknown Venipuncture / Unknown 12/02/2024 11:07 AM EST 12/02/2024 12:07 PM EST us Surekha RICKETTS LAB BLOOD ORDERABLES Final R esult [facility] [address] [place] [address], * (ABNORMAL) BMP (12/02/2024 11:07 AM EST) Sodium 136 133 - 145 mmol/L LAB CHEMISTRY METHOD 12/02/2024 12:52 PM [facility] Potassium 3.8 3.5 - 5.5 mmol/L LAB CHEMISTRY METHOD 12/02/2024 12:52 PM [facility] Chloride 103 96 - 110 mmol/L LAB CHEMISTRY METHOD 12/02/2024 12:52 PM [facility] CO2 26 21 - 32 mmol/L LAB CHEMISTRY METHOD 12/02/2024 12:52 PM [facility] Anion Gap 7 3 - 11 LAB CHEMISTRY METHOD 12/02/2024 12:52 PM [facility] Glucose 146(H) 70 - 100 mg/dL LAB CHEMISTRY METHOD 12/02/2024 12:52 PM [facility] BUN 15 5 - 25 mg/dL LAB CHEMISTRY METHOD 12/02/2024 12:52 PM [facility] Creatinine 0.72 0.50 - 1.10 mg/dL LAB CHEMISTRY METHOD 12/02/2024 12:52 PM [facility] eGFR 92 >=60 mL/min/1. 73m2 LAB CHEMISTRY METHOD 12/02/2024 12:52 PM [facility] Comment:Calculation based on the??Chronic Kidney Disease Epidemiology Collaboration (CKD-EPI) equation refit??without adjustment for race. BUN/Creatinine Ratio 20.8 LAB CHEMISTRY METHOD 12/02/2024 12:52 PM [facility] Calcium 10.0 8.5 - 10.5 mg/dL LAB CHEMISTRY METHOD 12/02/2024 12:52 PM [facility] Blood Venous blood specimen / Unknown Venipuncture / Unknown 12/02/2024 11:07 AM EST 12/02/2024 12:07 PM EST us Surekha RICKETTS LAB BLOOD ORDERABLES Final R esult [facility] ([facility]) [facility] [address] [place] [address], from Last 3 Months Insurance [facility] MEDICARE Member Subscriber Plan / Payer (Ef fective 2023-Present) Name:Angy RichardsMaura lewis Relation to Subscriber:Self Name:Angy Maura Smith Payer ID:[id number] Group ID:[id number] Type:Not on file Address: [facility] [place]MM[place]UEL [address] Advance Directives Documents on File Type Date Recorded 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 Care Teams Band Ripsaw Operator Relationship Specialty Start Date End Date Mary Jo Conteh MD [address] [place] [address] , [address] [facility] D/B/A: [facility] [place], [place] PCP - General Internal Medicine 05/28/18
== END 2025-03-02 11:03 | disposition home or self-care (01) ==
LOC: HO.HGS 10:15
PROVIDERS: PCP Internal Medicine; Visit Provider Surgery
DX: R10.84 Generalized abdominal pain (principal)
CPT/HCPCS: 99213

== ENCOUNTER → 2025-03-02 10:15 | Outpatient (BNVA) | payer OTHER, SELFPAY | PROVIDERS: PCP Internal Medicine; Visit Provider Surgery | DX: R10.84 Generalized abdominal pain (principal) | CPT/HCPCS: 99212 ==

== ENCOUNTER 2025-03-04 11:36 | Outpatient (REF) | payer OTHER, SELFPAY ==
--- OUTSIDE RECORDS SUMMARY | 2025-03-04 14:58 | XMS_ITS | Encounter Summary ---
Author Organization [facility] Address [address] [place] [address] Care Team Providers Care Weave Room Supervisor Name Role Phone Mary Jo Conteh MD Primary Care Provider [phone] Reason for Visit * Reason Onset Date Comments Advice Only 02/05/2025 Encounter Details Date Type Department Care Team ([facility] st Contact Info) Description 02/05/2025 Telephone Bariatric Surgery - [place] [address] [place] [phone] Griffin Loya MD [address] [facility] [address] [place] [address] [place] [phone] Advice Only Social History Tobacco Use Types [...] a clearance letter to be emailed to [email or web address] ([place]) clearing patient for hydro-colon therapy which [...] on filedocumented in this encounter Care Teams Weave Room Supervisor Relationship Specialty Start Date End Date Mary Jo Conteh MD [address] [place] [address] , [address] [facility] Physician Associ D/B/A: [facility] CARLOS MANUEL Zeng PCP - General Internal Medicine 05/28/18 documented as of this encounter
--- OUTSIDE RECORDS SUMMARY | 2025-03-04 14:58 | XMS_ITS | Clinical Summary ---
Author Organization 175 [facility] Address [address] [place] [address] Phone Care Team Providers Care Batching Operator Name Role Phone Mary Jo Conteh MD Primary Care Provider [phone] Allergies No known active allergies Medications albuterol [...] 1 (one) time each day. Active ascorbic tbmu-hlyhxkdj-daj 1,000 mg powder effervescent in packet Take [...] Team Description 02/05/2025 Telephone Bariatric Surgery - [address] [phone] Griffin Loya MD Advice Only 01/26/2025 6:31 PM EDT - 01/26/2025 10:56 PM EDT Emergency [facility] Emergency [address] [place] [phone] Chaz Jose MD Urinary tract infection without hematuria, site unspecified (Primary Dx); Constipation, unspecified constipation type; Nausea and vomiting, unspecified vomiting type Discharge Disposition: Home or Self Care 12/09/2024 9:30 AM EST - 12/09/2024 11:30 AM EST Surgery [facility] Main OR [address] [place] [phone] Griffin Loya MD OPEN EXPLORATION UMBILICUS W/REPAIR OF RECURRENT UMBILICAL HERNIA [[id number] (CPT??)] 12/09/2024 9:22 AM EST Anesthesia Event [facility] Main OR [address] [place] [phone] Tomas Collazo MD Hayes, Brett L, SOCIAL WORKER 12/09/2024 8:08 AM EST - 12/09/2024 1:03 PM EST Hospital Encounter [facility] Main OR [address] [place] [phone] Griffin Loya MD Discharge Disposition: Home [...] this topic Medical Devices Implanted Type Area Chief Guard Device Identifier Shelf Expiration Date Model / Serial / Lot Mesh Ventralex St 1.7in Sm [place] W/Strap - Sn/A - [id number] Implanted:Qty: 1 on 12/09/2024 by Griffin Loya MD at [facility] Surgical Mesh Sling Implants N/A: Umbilical CR BARD - DAVOL DIV [id number] / N/A / N/A Procedures Procedure Name [...] ENDOTRACHEAL(NO CHARGE) Routine 12/09/2024 9:36 AM EST [place] REPR ANT ABD HERNIA(S) ANY APPR [...] LAB HEMETOLOGY METHOD 01/26/2025 8:04 PM EDT [facility] Hemoglobin 7.8(L) 11.5 - 16.0 g/dL LAB HEMETOLOGY METHOD [facility] Hematocrit 26.1(L) 35.0 - 47.0 % LAB HEMETOLOGY METHOD 01/26/2025 8:[address] [facility] MCV 80.3 79.0 - 98.0 FL LAB HEMETOLOGY METHOD 01/26/2025 8:04 PM EDT [facility] MCH 24.0(L) 27.0 - 32.0 pcg LAB HEMETOLOGY METHOD 01/26/2025 8:04 PM [facility] MCHC 29.9(L) 32.0 - 37.0 g/dL LAB HEMETOLOGY METHOD 01/26/2025 8:04 PM [facility] RDW 17.1(H) 11.0 - 15.0 % LAB HEMETOLOGY METHOD 01/26/2025 8:04 PM [facility] Platelets 451(H) 130 - 400 K/mcL LAB HEMETOLOGY METHOD 01/26/2025 8:[address] [facility] MPV 10.1 7.0 - 11.0 [...] 01/26/2025 8:[address] [facility] Monocytes Relative 5.7 % LAB HEMETOLOGY METHOD 01/26/2025 8:[address] [facility] Eosinophils Relative 1.0 % LAB HEMETOLOGY METHOD 01/26/2025 8:[address] [facility] Basophils Relative 0.4 % LAB HEMETOLOGY METHOD 01/26/2025 8:[address] [facility] Immature Granulocytes Relative 0.6 % LAB HEMETOLOGY METHOD 01/26/2025 8:04 PM EDT [facility] Neutrophils Absolute 5.26 1.50 - 7.00 K/mcL LAB HEMETOLOGY METHOD 01/26/2025 8:04 PM EDT [facility] Lymphocytes Absolute 1.03 1.00 - 5.00 K/mcL LAB HEMETOLOGY METHOD 01/26/2025 8:04 PM EDT [facility] Monocytes Absolute 0.39 0.20 - 1.00 K/mcL LAB HEMETOLOGY METHOD 01/26/2025 8:04 PM EDT [facility] Eosinophils Absolute 0.07 0.00 - 0.50 K/mcL LAB HEMETOLOGY METHOD 01/26/2025 8:04 PM EDT [facility] Basophils Absolute 0.03 0.00 - 0.20 K/mcL LAB HEMETOLOGY METHOD 01/26/2025 8:04 PM EDT [facility] Immature Granulocytes Absolute 0.04(H) 0.00 - 0.03 K/mcL LAB HEMETOLOGY METHOD 01/26/2025 8:04 PM EDT [facility] Blood Venous blood specimen / Unknown Venipuncture / Unknown 01/26/2025 7:27 PM EDT 01/26/2025 7:40 PM EDT us Chaz Jose MD LAB BLOOD ORDERABLES Final Resu lt [facility] [address] [place] [address], * (ABNORMAL) Comprehensive metabolic panel (01/26/2025 7:27 PM EDT) Sodium 142 133 - 145 mmol/L LAB CHEMISTRY METHOD 01/26/2025 8:28 PM EDT [facility] Potassium 3.7 3.5 - 5.5 [...] 01/26/2025 8:[address] [facility] Total Protein 7.0 6.0 - 8.0 g/dL LAB CHEMISTRY METHOD 01/26/2025 8:28 PM EDT [facility] Albumin 3.4 3.2 - 5.0 g/dL LAB CHEMISTRY METHOD 01/26/2025 8:28 PM EDT [facility] Total Bilirubin 0.2 0.0 - 1.4 mg/dL LAB CHEMISTRY METHOD 01/26/2025 8:28 PM EDT [facility] Blood Venous blood specimen / Unknown Venipuncture / Unknown 01/26/2025 7:27 PM EDT 01/26/2025 7:40 PM EDT us Chaz Jose MD LAB BLOOD ORDERABLES Final Resu lt [facility] [address] [place] [address], [place] [phone] * (ABNORMAL) Urinalysis with reflex microscopic and culture (01/26/2025 7:15 PM EDT) Specific [place] Urine 1.017 1.003 - 1.030 LAB URINALYSIS - AUTOMATED METHOD 01/26/2025 7:[address] [facility] pH, Urine 6.0 5.0 - 8.0 pH LAB URINALYSIS - AUTOMATED METHOD 01/26/2025 7:[address] [facility] Leukocytes, Urine Trace(A) Negative LAB URINALYSIS - AUTOMATED METHOD 01/26/2025 7:[address] [facility] Nitrite, Urine Negative Negative LAB URINALYSIS - AUTOMATED METHOD 01/26/2025 7:[address] [facility] Protein, Urine Negative <=Trace mg/dL LAB URINALYSIS - AUTOMATED METHOD 01/26/2025 7:[address] [facility] Glucose, Urine Negative Negative mg/dL LAB URINALYSIS - AUTOMATED METHOD 01/26/2025 7:49 PM EDT [facility] Ketones, Urine Negative Negative mg/dL [...] MD LAB URINE ORDERABLES Final Resu lt [facility] [address] [place] [address], * Rebolledo urine culture tube (01/26/2025 7:15 PM EDT) Extra Tube Hold for add-ons. 01/26/2025 9:01 PM EDT [facility] Comment:Auto resulted. Urine Urine specimen obtained by clean catch procedure / Unknown Non-blood Collection / Unknown 01/26/2025 7:15 PM EDT 01/26/2025 7:40 PM EDT us Chaz Jose MD LAB URINE ORDERABLES Final Resu lt [facility] [address] [place] [address], [place] [phone] * (ABNORMAL) Culture urine (01/26/2025 7:15 PM EDT) Culture, Urine >100,000 CFU/mL Escherichia coli(A) JAIME 01/28/2025 10:19 AM EDT [facility] Urine Urine specimen obtained by [...] Susceptible Chaz Jose MD [facility] KHALILJOSE MARIA Final Result [facility] [address] [place] [address], [place] [phone] * TH AN ENDOTRACHEAL(NO CHARGE) (12/09/2024 9:36 [...] ABO Group O 12/09/2024 10:42 AM EST [facility] Rh Type Positive 12/09/2024 10:42 AM EST [facility] Antibody Screen Negative 12/09/2024 10:42 AM EST [facility] Blood Venous blood specimen / Unknown Venipuncture / Unknown 12/09/2024 9:20 AM EST 12/09/2024 9:21 AM EST us Griffin Loya MD LAB BLOOD BANK TEST ORDERABL ES Final Result [facility] [address] [place] [address], from Last 3 Months Insurance [facility] MEDICARE Member Subscriber Plan / Payer (Ef fective 2023-Present) Name:Maura Bansal Relation to Subscriber:Self Name:Maura Bansal Payer ID:[id number] Group ID:[id number] Type:Not on file Address: [place] [address] [address] [phone] Advance Directives Documents on File Type Date Recorded Patient Technician [employer]iconductor Development Expl anation Health Care Decision (hx) 05/24/2015 [...] currently active code status orders. Care Teams Batching Operator Relationship Specialty Start Date End Date Mary Jo Conteh MD [address] [place] [address] , [address] Physician Associ D/B/A: [facility] CARLOS MANUEL Zeng PCP - General Internal Medicine 05/28/18
== END 2025-03-04 11:37 | disposition home or self-care (01) ==
LOC: HO.LAB 11:36
PROVIDERS: PCP Internal Medicine; Visit Provider Urology
DX: R30.0 Dysuria (principal)
CPT/HCPCS: 81003; 87086; 87088; 87186

== ENCOUNTER 2025-03-04 11:36 | Outpatient (AMB) | payer OTHER, SELFPAY ==
--- NOTE | 2025-03-04 11:51 | AM.OFFVISNUR ---
Intake Visit Reasons: IC instillation Allergies phentermine Allergy (Intermediate, Verified 03/02/25 10:48) Palpitations Nursing Note Patient presents to office today for bladder instillation. Upon arrival, pt reports she has burning, bladder pain, and lower back pain and thinks she has a UTI. Clean catch sample provided by patient and urine dipped in office showing +3 leukocytes. Urine appears yellow and cloudy. Reviewed with Dr. Sheth and decision to cancelling instillation. Script sent for Macrobid bid x7 days sent. Patients instillation rescheduled for 2 weeks. Results AMB Urinalysis, Automated UA Leukoctes 500 Denilson/uL Last Edit by Jenni Cobb RN on 03/04/25 12:06 UA Nitrite Negative Last Edit by Jenni Cobb RN on 03/04/25 12:06 UA Urobilinogen 0.2 mg/dL Last Edit by Jenni Cobb RN on 03/04/25 12:06 UA Protein 30 mg/dL Last Edit by Jenni Cobb RN on 03/04/25 12:06 UA pH 6.0 Last Edit by Jenni Cobb RN on 03/04/25 12:06 UA Blood 80 Brady/uL Last Edit by Jenni Cobb RN on 03/04/25 12:06 UA Specific [place] 1.0 Last Edit by Jenni Cobb RN on 03/04/25 12:06 UA Ketone Negative Last Edit by Jenni Cobb RN on 03/04/25 12:06 UA Bilirubin 0 mg/dL Last Edit by Jenni Cobb RN on 03/04/25 12:06 UA Glucose 0 mg/dL Last Edit by Jenni Cobb RN on 03/04/25 12:06 Assessment & Plan Assessment & Plan Orders: Orders Urine Culture Today R30.0 - Dysuria AMB Urinalysis Automated Today Z13.9 - Encounter for screening, unspecified Coding
--- OUTSIDE RECORDS SUMMARY | 2025-03-04 14:27 | XMS_ITS | Encounter Summary ---
Author Organization [facility] Address [address] [place] [address] Care Team Providers Care Charity Fundraiser Name Role Phone Mary Jo Conteh MD Primary Care Provider [phone] Reason for Visit * Reason Onset Date Comments Advice Only 02/05/2025 Encounter Details Date Type Department Care Team ([facility] st Contact Info) Description 02/05/2025 Telephone Bariatric Surgery - [place] [address] [place] [phone] Griffin Loya MD 175 [facility] [address] [place] [address] [place] [id number] Advice Only Social History Tobacco Use Types [...] a clearance letter to be emailed to [email or web address] (Aleshia) clearing patient for hydro-colon therapy which [...] on filedocumented in this encounter Care Teams Charity Fundraiser Relationship Specialty Start Date End Date Mary Jo Conteh MD [address] [place] [address] , [address] [facility] D/B/A: [facility] CARLOS MANUEL Zeng PCP - General Internal Medicine 05/28/18 documented as of this encounter
--- OUTSIDE RECORDS SUMMARY | 2025-03-04 14:27 | XMS_ITS | Data Portability ---
Author Organization [place] - [facility], Allergy Address [address] [address] Assessment Encounter Date Assessment Date Assessment LastModified [...] recorded. Imaging MRI, neck, w/wo contrast - greek speaker, hx of right parotidecto my for [...] ast No observ ation record ed. [email or web address] [address], [address], 10/09/2024 09:09:01 Result Notes None recorded. 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 - [facility] 13:58:22 Problem Notes None recorded. Procedures Surgical [...] 09/05/2024 MRI, neck, w/wo contrast completed [email or web address] [facility] [address] [place], [address], 10/09/2024 09:09:01 Procedure Notes None recorded. Medical [...] Updated DateTime 07/08/2024 152.4 cm 29.3 kg/m2 04333.86 g Marc Odonnell [place] - [facility] 07/08/2024 13:41:16 Social History None recorded. Functional Status None recorded. Mental Status None recorded. Family History Nothing Reported. Medical History No medical history recorded. Gynecological HistoryNo gynecological history recorded. Obstetrics History GPAL:G 0 P 0 0 0 0 Past Encounters Encounter ID Performer Location Encounter Start Date Encounter Closed Date Diagnosis/Indication Diagnosis SNOMED-CT Code Diagnosis ICD10 Code Diagnosis Note [id number] CHRIS WOO MD [facility] [address] [address] 07/08/2024 13:31:55 07/08/2024 14:01:53 History of malignant neoplasm of parotid gland 3980436898 12041 Z85.818 Health Concerns Section Related Observation LastModified by Organization Detai ls LastModified Time None Recorded Concern Status LastModified by Organization Details LastModified Time None Recorded Advance Directives Directive None Recorded Payers Encounter Date Sequence Insurance Name Policy Number Policy Madrigal Covered Member ID Madrigal Member ID Guarantor Name 07/08/2024 1 [facility] Maura Travis [id number] Maura Travis Notes Date Note Type Note Provider Name and Address Organization Details Recorded Time 07/08/2024 text/html greek - IPADhx of right deep lobe parotid [...] for a follicular nodule CHRIS WOO MD [address] [place] [address], [phone], [facility] - [facility] 07/08/2024 14:01:47 OBGyn Episode No OBEpisode recorded.
--- OUTSIDE RECORDS SUMMARY | 2025-03-04 14:27 | XMS_ITS | Clinical Summary ---
Author Organization 175 [facility] Address [address] [place] [address] Phone Care Team Providers Care Percolator Operator Name Role Phone Mary Jo Conteh MD Primary Care Provider [phone] Allergies No known active allergies Medications albuterol [...] 1 (one) time each day. Active ascorbic ybji-cergrcgv-ict 1,000 mg powder effervescent in packet Take [...] Team Description 02/05/2025 Telephone Bariatric Surgery - [address] [address] Griffin Loya MD Advice Only 01/26/2025 6:31 PM EDT - 01/26/2025 10:56 PM EDT Emergency [facility] Emergency [address] [place] [phone] Chaz Jose MD Urinary tract infection without hematuria, site unspecified (Primary Dx); Constipation, unspecified constipation type; Nausea and vomiting, unspecified vomiting type Discharge Disposition: Home or Self Care 12/09/2024 9:30 AM EST - 12/09/2024 11:30 AM EST Surgery [facility] Main OR [address] [place] [phone] Griffin Loya MD OPEN EXPLORATION UMBILICUS W/REPAIR OF RECURRENT UMBILICAL HERNIA [81874 (CPT??)] 12/09/2024 9:22 AM EST Anesthesia Event [facility] Main OR [address] [place] [phone] Tomas Collazo MD Hayes, Brett L, CLEAN OUT DRILLER HELPER 12/09/2024 8:08 AM EST - 12/09/2024 1:03 PM EST Hospital Encounter [facility] Main OR [address] [place] [phone] Griffin Loya MD Discharge Disposition: Home or Self Care from [...] this topic Medical Devices Implanted Type Area Journeyman Painter Device Identifier Shelf Expiration Date Model / Serial / Lot Mesh Ventralex St 1.7in Sm [place] W/Strap - Sn/A - [id number] Implanted:Qty: 1 on 12/09/2024 by Griffin Loya MD at [facility] Surgical Mesh Sling Implants N/A: Umbilical CR BARD - DAVOL DIV [id number] / N/A / N/A Procedures Procedure Name [...] ENDOTRACHEAL(NO CHARGE) Routine 12/09/2024 9:36 AM EST [place] REPR ANT ABD HERNIA(S) ANY APPR RECUR INCL IMPL < 3 CM INCARCERATED/STRG 12/09/2024 9:21 AM EST Umbilical hernia Case Notes IN PT Special Needs ADMISSION STATUS UPDATED TO INPT VIA PHONE W/ KENZIE PER INSURANCE WR 12/08 TYPE AND SCREEN Routine 12/09/2024 9:20 AM EST from Last 3 Months Results * CT [...] K/mcL LAB [facility] RBC 3.30(L) 3.80 - 4.80 M/mcL LAB HEMETOLOGY METHOD 01/26/2025 8:04 PM EDT [facility] Hemoglobin 7.8(L) 11.5 - 16.0 g/dL LAB HEMETOLOGY METHOD 01/26/2025 8:04 PM [facility] Hematocrit 26.1(L) 35.0 - 47.0 % LAB HEMETOLOGY METHOD 01/26/2025 8:04 PM [facility] MCV 80.3 79.0 - 98.0 FL LAB HEMETOLOGY METHOD 01/26/2025 8:04 PM EDT [facility] MCH 24.0(L) 27.0 - 32.0 pcg LAB HEMETOLOGY METHOD 01/26/2025 8:04 PM [facility] MCHC 29.9(L) 32.0 - 37.0 g/dL LAB HEMETOLOGY METHOD 01/26/2025 8:04 PM [facility] RDW 17.1(H) 11.0 - 15.0 % LAB HEMETOLOGY METHOD 01/26/2025 8:04 PM [facility] Platelets 451(H) 130 - 400 K/mcL LAB HEMETOLOGY METHOD 01/26/2025 8:04 PM [facility] MPV 10.1 7.0 - 11.0 FL LAB HEMETOLOGY METHOD 01/26/2025 8:04 PM [facility] NRBC 0.0 <1.0 % LAB HEMETOLOGY METHOD 01/26/2025 8:04 PM [facility] NRBC Absolute 0.00 <0.10 K/mcL LAB HEMETOLOGY METHOD 01/26/2025 8:04 PM [facility] Neutrophils Relative 77.2 % LAB HEMETOLOGY METHOD 01/26/2025 8:04 PM [facility] Lymphocytes Relative 15.1 % LAB HEMETOLOGY METHOD 01/26/2025 8:04 PM [facility] Monocytes Relative 5.7 % LAB HEMETOLOGY METHOD 01/26/2025 8:04 PM [facility] Eosinophils Relative 1.0 % LAB HEMETOLOGY METHOD 01/26/2025 8:04 PM [facility] Basophils Relative 0.4 % LAB HEMETOLOGY METHOD 01/26/2025 8:04 PM [facility] Immature Granulocytes Relative 0.6 % LAB HEMETOLOGY METHOD 01/26/2025 8:04 PM EDT [facility] Neutrophils Absolute 5.26 1.50 - 7.00 K/mcL LAB HEMETOLOGY METHOD 01/26/2025 8:04 PM EDT [facility] Lymphocytes Absolute 1.03 1.00 - 5.00 K/mcL LAB HEMETOLOGY METHOD 01/26/2025 8:04 PM EDT [facility] Monocytes Absolute 0.39 0.20 - 1.00 K/mcL LAB HEMETOLOGY METHOD 01/26/2025 8:04 PM EDT [facility] Eosinophils Absolute 0.07 0.00 - 0.50 K/mcL LAB HEMETOLOGY METHOD 01/26/2025 8:04 PM EDT [facility] Basophils Absolute 0.03 0.00 - 0.20 K/mcL LAB HEMETOLOGY METHOD 01/26/2025 8:04 PM EDT [facility] Immature Granulocytes Absolute 0.04(H) 0.00 - 0.03 K/mcL LAB HEMETOLOGY METHOD 01/26/2025 8:04 PM EDT [facility] Blood Venous blood specimen / Unknown Venipuncture / Unknown 01/26/2025 7:27 PM EDT 01/26/2025 7:40 PM EDT us Chaz Jose MD LAB BLOOD ORDERABLES Final Resu lt [facility] [address] [place] [address], * (ABNORMAL) Comprehensive metabolic panel (01/26/2025 7:27 PM EDT) Sodium 142 133 - 145 mmol/L LAB CHEMISTRY METHOD 01/26/2025 8:28 PM EDT [facility] Potassium 3.7 3.5 - 5.5 mmol/L LAB CHEMISTRY METHOD 01/26/2025 8:28 PM [facility] Chloride 108 96 - 110 mmol/L LAB CHEMISTRY METHOD 01/26/2025 8:28 PM [facility] CO2 23 21 - 32 mmol/L LAB CHEMISTRY METHOD 01/26/2025 8:28 PM [facility] Anion Gap 11 3 - 11 LAB CHEMISTRY METHOD 01/26/2025 8:28 PM [facility] Glucose 111(H) 70 - 100 mg/dL LAB CHEMISTRY METHOD 01/26/2025 8:28 PM [facility] BUN 17 5 - 25 mg/dL LAB CHEMISTRY METHOD 01/26/2025 8:28 PM [facility] Creatinine 0.67 0.50 - 1.10 mg/dL LAB CHEMISTRY METHOD 01/26/2025 8:28 PM [facility] eGFR 97 >=60 mL/min/1. 73m2 LAB CHEMISTRY METHOD 01/26/2025 8:28 PM [facility] Comment:Calculation based on the??Chronic Kidney Disease Epidemiology Collaboration (CKD-EPI) equation refit??without adjustment for race. BUN/Creatinine Ratio 25.4 LAB CHEMISTRY METHOD 01/26/2025 8:28 PM [facility] Calcium 9.2 8.5 - 10.5 mg/dL LAB CHEMISTRY METHOD 01/26/2025 8:28 PM [facility] AST (SGOT) 21 10 - 42 unit/L LAB CHEMISTRY METHOD 01/26/2025 8:28 PM [facility] ALT (SGPT) 18 10 - 60 unit/L LAB CHEMISTRY METHOD 01/26/2025 8:28 PM [facility] Alkaline Phosphatase 101 42 - 121 unit/L LAB CHEMISTRY METHOD 01/26/2025 8:28 PM [facility] Total Protein 7.0 6.0 - 8.0 g/dL LAB CHEMISTRY METHOD 01/26/2025 8:28 PM EDT [facility] Albumin 3.4 3.2 - 5.0 g/dL LAB CHEMISTRY METHOD 01/26/2025 8:28 PM EDT [facility] Total Bilirubin 0.2 0.0 - 1.4 mg/dL LAB CHEMISTRY METHOD 01/26/2025 8:28 PM EDT [facility] Blood Venous blood specimen / Unknown Venipuncture / Unknown 01/26/2025 7:27 PM EDT 01/26/2025 7:40 PM EDT us Chaz Jose MD LAB BLOOD ORDERABLES Final Resu lt [facility] [address] [place] [address], [place] [phone] * (ABNORMAL) Urinalysis with reflex microscopic and culture (01/26/2025 7:15 PM EDT) Specific [place] Urine 1.017 1.003 - 1.030 LAB URINALYSIS - AUTOMATED METHOD 01/26/2025 7:49 PM [facility] pH, Urine 6.0 5.0 - 8.0 pH LAB URINALYSIS - AUTOMATED METHOD 01/26/2025 7:49 PM [facility] Leukocytes, Urine Trace(A) Negative LAB URINALYSIS - AUTOMATED METHOD 01/26/2025 7:49 PM [facility] Nitrite, Urine Negative Negative LAB URINALYSIS - AUTOMATED METHOD 01/26/2025 7:49 PM [facility] Protein, Urine Negative <=Trace mg/dL LAB URINALYSIS - AUTOMATED METHOD 01/26/2025 7:49 PM [facility] Glucose, Urine Negative Negative mg/dL LAB URINALYSIS - AUTOMATED METHOD 01/26/2025 7:49 PM EDT [facility] Ketones, Urine Negative Negative mg/dL LAB URINALYSIS - AUTOMATED METHOD 01/26/2025 7:49 PM [facility] Urobilinogen , Urine 0.2 0.2 - 1.0 mg/dL LAB URINALYSIS - AUTOMATED METHOD 01/26/2025 7:49 PM [facility] Bilirubin, Urine Negative Negative LAB URINALYSIS - AUTOMATED METHOD 01/26/2025 7:49 PM [facility] Blood, Urine Negative Negative LAB URINALYSIS - AUTOMATED METHOD 01/26/2025 7:49 PM [facility] RBC, Urine 5.8(H) 0 - 4 /HPF LAB URINALYSIS - AUTOMATED METHOD 01/26/2025 7:49 PM [facility] WBC, Urine 3.8 0 - 4 /HPF LAB URINALYSIS - AUTOMATED METHOD 01/26/2025 7:49 PM [facility] Squamous Epithelial, Urine 59 0 - 60 /LPF LAB URINALYSIS - AUTOMATED METHOD 01/26/2025 7:49 PM [facility] Bacteria, Urine Moderate(A) Negative /HPF LAB URINALYSIS - AUTOMATED METHOD 01/26/2025 7:49 PM [facility] Hyaline Casts, Urine 1.2 0 - 3 /LPF LAB URINALYSIS - AUTOMATED METHOD 01/26/2025 7:49 PM [facility] Urine Urine specimen obtained by clean catch procedure / Unknown Non-blood Collection / Unknown 01/26/2025 7:15 PM EDT 01/26/2025 7:40 PM EDT us Chaz Jose MD LAB URINE ORDERABLES Final Resu lt [facility] [address] [place] [address], * Rebolledo urine culture tube (01/26/2025 7:15 PM EDT) Extra Tube Hold for add-ons. 01/26/2025 9:01 PM EDT [facility] Comment:Auto resulted. Urine Urine specimen obtained by clean catch procedure / Unknown Non-blood Collection / Unknown 01/26/2025 7:15 PM EDT 01/26/2025 7:40 PM EDT us Chaz Jose MD LAB URINE ORDERABLES Final Resu lt [facility] [address] [place] [address], [place] [phone] * (ABNORMAL) Culture urine (01/26/2025 7:15 PM EDT) Culture, Urine >100,000 CFU/mL Escherichia coli(A) JAIME 01/28/2025 10:19 AM EDT [facility] Urine Urine [...] Escherichia coli Trimethoprim/Sulfamethoxazole JAIME <=20 ug/ml: Susceptible Chaz Jose MD [facility] KHALIL[facility]SE MARIA Final Result [facility] [address] [place] [address], [place] [phone] * TH AN ENDOTRACHEAL(NO CHARGE) (12/09/2024 9:36 [...] adjuvant +/- NMBA Tomas Collazo MD ANESTHESIA ORDERABLES Final Re sult * Type and screen (12/09/2024 9:20 AM EST) ABO Group O 12/09/2024 10:42 AM EST [facility] Rh Type Positive 12/09/2024 10:42 AM EST [facility] Antibody Screen Negative 12/09/2024 10:42 AM EST [facility] Blood Venous blood specimen / Unknown Venipuncture / Unknown 12/09/2024 9:20 AM EST 12/09/2024 9:21 AM EST us Griffin Loya MD LAB BLOOD BANK TEST ORDERABL ES Final Result [facility] [address] [place] [address], from Last 3 Months Insurance [facility] MEDICARE Member Subscriber Plan / Payer (Ef fective 2023-Present) Name:Maura Bansal Relation to Subscriber:Self Name:Maura Bansal Payer ID:[id number] Group ID:[id number] Type:Not on file Address: [place] [address] [address] [place] [phone] Advance Directives Documents on File Type Date Recorded Patient Performance Improvement Consultant Expl anation Health Care Decision (hx) 05/24/2015 [...] currently active code status orders. Care Teams Percolator Operator Relationship Specialty Start Date End Date Mary Jo Conteh MD [address] [place] [address] , [address] Physician Associ D/B/A: [facility] CARLOS MANUEL Zeng PCP - General Internal Medicine 05/28/18
== END 2025-03-04 12:02 | disposition home or self-care (01) ==
LOC: HO.HUSH 11:36
PROVIDERS: PCP Internal Medicine; Visit Provider Urology
DX: Z13.9 Encounter for screening, unspecified (principal)

== ENCOUNTER 2025-03-17 09:09 | Day surgery (SDC) | payer OTHER, SELFPAY ==
--- OUTSIDE RECORDS SUMMARY | 2025-02-19 07:40 | XMS_ITS | Clinical Summary ---
Author Organization [facility] Address [address] [place] [address] Phone Care Team Providers Care Medical Lab Tech Instructor Name Role Phone Mary Jo Conthe MD Primary Care Provider [phone] Allergies No known active allergies Medications albuterol [...] 1 (one) time each day. Active ascorbic nndn-efbphonk-mez 1,000 mg powder effervescent in packet Take [...] Team Description 02/05/2025 Telephone Bariatric Surgery - [address] [phone] Griffin Loay MD Advice Only 01/26/2025 6:31 PM EDT - 01/26/2025 10:[address] [facility] Emergency [address] [place] [phone] Chaz Jose MD Urinary tract infection without hematuria, site unspecified (Primary Dx); Constipation, unspecified constipation type; Nausea and vomiting, unspecified vomiting type Discharge Disposition: Home or Self Care 12/09/2024 9:30 AM EST - 12/09/2024 11:[address] [facility] Main OR [address] [place] [phone] Griffin Loya MD OPEN EXPLORATION UMBILICUS W/REPAIR OF RECURRENT UMBILICAL HERNIA [43408 (CPT??)] 12/09/2024 9:22 AM EST Anesthesia Event [facility] Main OR [address] [place] [address] Tomas Collazo MD Hayes, Brett L, CRNA 12/09/2024 8:08 AM EST - 12/09/2024 1:03 PM EST Hospital Encounter [facility] Main OR [address] [place] [phone] Griffin Loya MD Discharge Disposition: Home or Self Care 12/02/2024 12:07 PM EST - 12/02/2024 11:59 PM EST Hospital Encounter [facility] Xray [address] [place] [phone] Discharge Disposition: Home or Self Care 12/01/2024 10:30 AM EST Pre-Admission Testing [facility] Pre-Admission Testing [address] [place] [phone] Umbilical hernia without obstruction and without gangrene [...] this topic Medical Devices Implanted Type Area Can Dryer Device Identifier Shelf Expiration Date Model / Serial / Lot Mesh Ventralex St 1.7in Sm [place] W/Strap - Sn/A - [id number] Implanted:Qty: 1 on 12/09/2024 by Griffin Loya MD at [facility] Surgical Mesh Sling Implants N/A: Umbilical CR BARD - DAVOL DIV [id number] / N/A / N/A Procedures Procedure Name [...] ENDOTRACHEAL(NO CHARGE) Routine 12/09/2024 9:36 AM EST DE REPR ANT ABD HERNIA(S) ANY APPR RECUR [...] LAB HEMETOLOGY METHOD 01/26/2025 8:04 PM EDT [facility] RBC 3.30(L) 3.80 - 4.80 M/mcL LAB HEMETOLOGY METHOD 01/26/2025 8:04 PM EDT [facility] Hemoglobin 7.8(L) 11.5 - 16.0 g/dL LAB HEMETOLOGY METHOD 01/26/2025 8:04 PM EDT [facility] Hematocrit 26.1(L) 35.0 - 47.0 % LAB HEMETOLOGY METHOD 01/26/2025 8:04 PM EDT [facility] MCV 80.3 79.0 - 98.0 FL LAB [facility] MCH 24.0(L) 27.0 - 32.0 pcg LAB HEMETOLOGY METHOD [facility]25 [facility] MCHC 29.9(L) 32.0 - 37.0 g/dL LAB HEMETOLOGY METHOD [facility]25 [facility] RDW 17.1(H) 11.0 - 15.0 % LAB HEMETOLOGY METHOD [facility]25 [facility] Platelets 451(H) 130 - 400 K/mcL LAB HEMETOLOGY METHOD [facility] MPV 10.1 7.0 - 11.0 FL LAB HEMETOLOGY METHOD 01/26/2025 8:[address] [facility] NRBC 0.0 <1.0 % LAB HEMETOLOGY METHOD 01/26/2025 8:[address] [facility] NRBC Absolute 0.00 <0.10 K/mcL LAB HEMETOLOGY METHOD 01/26/2025 8:[address] [facility] Neutrophils Relative 77.2 % LAB HEMETOLOGY METHOD 01/26/2025 8:[address] [facility] Lymphocytes Relative 15.1 % LAB [facility]EMETOLOGY [facility] Monocytes Relative 5.7 % LAB HEMETOLOGY METHOD 01/26/2025 8:[address] [facility] Eosinophils Relative 1.0 % LAB HEMETOLOGY METHOD 01/26/2025 8:[address] [facility] Basophils Relative 0.4 % LAB HEMETOLOGY METHOD 01/26/2025 8:04 PM EDT [facility] Immature Granulocytes Relative 0.6 % LAB HEMETOLOGY METHOD 01/26/2025 8:04 PM EDT [facility] Neutrophils Absolute 5.26 1.50 - 7.00 K/mcL LAB HEMETOLOGY METHOD 01/26/2025 8:04 PM EDT [facility] Lymphocytes Absolute 1.03 1.00 - 5.00 K/mcL LAB HEMETOLOGY METHOD 01/26/2025 8:04 PM EDT [facility] Monocytes Absolute 0.39 0.20 - 1.00 K/mcL LAB HEMETOLOGY METHOD 01/26/2025 8:04 PM EDT [facility] Eosinophils Absolute 0.07 0.00 - 0.50 K/mcL LAB HEMETOLOGY METHOD 01/26/2025 8:04 PM EDT [facility] Basophils Absolute 0.03 0.00 - 0.20 K/mcL LAB HEMETOLOGY METHOD 01/26/2025 8:04 PM EDT [facility] Immature Granulocytes Absolute 0.04(H) 0.00 - 0.03 K/mcL LAB HEMETOLOGY METHOD 01/26/2025 8:04 PM EDT [facility] Blood Venous blood specimen / Unknown Venipuncture / Unknown 01/26/2025 7:27 PM EDT 01/26/2025 7:40 PM EDT us Chaz Jose MD LAB BLOOD ORDERABLES Final Resu lt [facility] [address] [place] [address], * (ABNORMAL) Comprehensive metabolic panel (01/26/2025 7:27 PM EDT) Sodium 142 133 - 145 mmol/L LAB CHEMISTRY METHOD 01/26/2025 8:[address] [facility] Potassium 3.7 3.5 - 5.5 mmol/L LAB CHEMISTRY METHOD 01/26/2025 8:[address] [facility] Chloride 108 96 - 110 mmol/L LAB CHEMISTRY METHOD 01/26/2025 8:[address] [facility] CO2 23 21 - 32 mmol/L LAB CHEMISTRY METHOD 01/26/2025 8:[address] [facility] Anion Gap 11 3 - 11 LAB CHEMISTRY METHOD 01/26/2025 8:[address] [facility] Glucose 111(H) 70 - 100 mg/dL LAB CHEMISTRY METHOD 01/26/2025 8:[address] [facility] BUN 17 5 - 25 mg/dL LAB CHEMISTRY METHOD 01/26/2025 8:[address] [facility] Creatinine 0.67 0.50 - 1.10 mg/dL LAB CHEMISTRY METHOD 01/26/2025 8:[address] [facility] eGFR 97 >=60 mL/min/1. 73m2 LAB CHEMISTRY METHOD 01/26/2025 8:[address] [facility] Comment:Calculation based on the??Chronic Kidney Disease Epidemiology Collaboration (CKD-EPI) equation refit??without adjustment for race. BUN/Creatinine Ratio 25.4 LAB CHEMISTRY METHOD 01/26/2025 8:[address] [facility] Calcium 9.2 8.5 - 10.5 mg/dL LAB CHEMISTRY METHOD 01/26/2025 8:[address] [facility] AST (SGOT) 21 10 - 42 unit/L LAB CHEMISTRY METHOD 01/26/2025 8:[address] [facility] ALT (SGPT) 18 10 - 60 unit/L LAB CHEMISTRY METHOD 01/26/2025 8:[address] [facility] Alkaline Phosphatase 101 42 - 121 unit/L LAB CHEMISTRY METHOD 01/26/2025 8:28 PM EDT [facility] Total Protein 7.0 6.0 - 8.0 g/dL LAB CHEMISTRY METHOD 01/26/2025 8:28 PM EDT [facility] Albumin 3.4 3.2 - 5.0 g/dL LAB CHEMISTRY METHOD 01/26/2025 8:28 PM EDT [facility] Total Bilirubin 0.2 0.0 - 1.4 mg/dL LAB CHEMISTRY METHOD 01/26/2025 8:28 PM EDT [facility] Blood Venous blood specimen / Unknown Venipuncture / Unknown 01/26/2025 7:27 PM EDT 01/26/2025 7:40 PM EDT us Chaz Jose MD LAB BLOOD ORDERABLES Final Resu lt [facility] [address] [place] [address], [place] [phone] * (ABNORMAL) Urinalysis with reflex microscopic and culture (01/26/2025 7:15 PM EDT) Only the most recent of2 resultswithin the time period is included. Specific Petros Urine 1.017 1.003 - 1.030 LAB URINALYSIS - AUTOMATED METHOD 01/26/2025 7:49 PM EDT [facility] pH, Urine 6.0 5.0 - 8.0 pH LAB URINALYSIS - AUTOMATED METHOD 01/26/2025 7:49 PM EDT [facility] Leukocytes, Urine Trace(A) Negative LAB URINALYSIS - AUTOMATED METHOD 01/26/2025 7:[address] [facility] Nitrite, Urine Negative Negative LAB URINALYSIS - AUTOMATED METHOD [facility]25 [facility] Protein, Urine Negative <=Trace mg/dL LAB URINALYSIS - AUTOMATED METHOD 01/26/2025 7:[address] [facility] Glucose, Urine Negative Negative mg/dL LAB URINALYSIS - AUTOMATED METHOD 01/26/2025 7:[address] [facility] Ketones, Urine Negative Negative mg/dL LAB URINALYSIS - AUTOMATED METHOD 01/26/2025 7:[address] [facility] Urobilinogen , Urine 0.2 0.2 - 1.0 mg/dL LAB URINALYSIS - AUTOMATED METHOD 01/26/2025 7:[address] [facility] Bilirubin, Urine Negative Negative LAB URINALYSIS - AUTOMATED METHOD 01/26/2025 7:[address] [facility] Blood, Urine Negative Negative LAB URINALYSIS - AUTOMATED METHOD 01/26/2025 7:[address] [facility] RBC, Urine 5.8(H) 0 - 4 /HPF LAB URINALYSIS - AUTOMATED METHOD 01/26/2025 7:[address] [facility] WBC, Urine 3.8 0 - 4 /HPF LAB URINALYSIS - AUTOMATED METHOD 01/26/2025 7:[address] [facility] Squamous Epithelial, Urine 59 0 - 60 /LPF LAB URINALYSIS - AUTOMATED METHOD 01/26/2025 7:[address] [facility] Bacteria, Urine Moderate(A) Negative /HPF LAB URINALYSIS - AUTOMATED METHOD 01/26/2025 7:[address] [facility] Hyaline Casts, Urine 1.2 0 - 3 /LPF LAB URINALYSIS - AUTOMATED METHOD 01/26/2025 7:[address] [facility] Urine Urine specimen obtained by clean catch procedure / Unknown Non-blood Collection / Unknown 01/26/2025 7:15 PM EDT 01/26/2025 7:40 PM EDT us Chaz Jose MD LAB URINE ORDERABLES Final Resu lt Performing Organization Address City/[facility]/ZIP Co de Phone Number [facility] [address] [place] [address], [place] [phone] * Rebol[place]o urine culture tube (01/26/2025 7:15 PM EDT) Only the most recent of2 resultswithin the time period is included. Extra Tube Hold for add-ons. 01/26/2025 9:01 PM EDT [facility] Comment:Auto resulted. Urine Urine specimen obtained by clean catch procedure / Unknown Non-blood Collection / Unknown 01/26/2025 7:15 PM EDT 01/26/2025 7:40 PM EDT Chaz Jose MD LAB URINE ORDERABLES Final Resu lt Performing Organization Address [facility]/ZIP Co de Phone Number [facility] [address] [place] [address], [place] [phone] * (ABNORMAL) Culture urine (01/26/2025 7:15 PM EDT) Culture, Urine >100,000 CFU/mL Escherichia coli(A) JAIME 01/28/2025 10:19 AM EDT [facility] Urine Urine specimen obtained by clean catch procedure / Unknown 01/26/2025 7:15 PM EDT 01/26/2025 7:49 PM EDT Narrative Organism Antibiotic Method Susceptibility Escherichia coli Amoxicillin/Clavulanate JAIME <=2 ug/ml: Susceptible Escherichia coli Ampicillin/Sulbactam JAIME <=2 ug/ml: Susceptible Escherichia coli Piperacillin/Tazobactam JIAME <=4 ug/ml: Susceptible Escherichia coli Cefazolin (Urine) [...] us Chaz Jose MD LAB MICROBIOLOGY - [facility] Final Result [facility] [address] [place] [address], [place] [phone] * TH AN ENDOTRACHEAL(NO CHARGE) (12/09/2024 9:36 [...] BLOOD BANK TEST ORDERABL ES Final Result [facility] [address] [place] [address], [place] [phone] * XR Chest 2 Views (12/02/2024 12:12 [...] Signed Date: 12/02/2024 12:30 ET Workstation ID: [id number] Transcribed By: Self Edit Transcribed Date: 12/02/2024 [...] Signed Date: 12/02/2024 12:30 ET Workstation ID: [id number] Transcribed By: Self Edit Transcribed Date: 12/02/2024 12:30 ET Surekha RICKETTS IMG XR PROCEDURES Final Resu lt * ECG 12 lead (12/02/2024 11:26 AM EST) Ventricular Rate ECG 86 BPM GEMUSE Atrial Rate 86 BPM GEMUSE P-R Interval 148 ms GEMUSE QRS Duration 92 ms GEMUSE Q-T Interval 366 ms GEMUSE QTc 437 ms GEMUSE P Wave [place] 30 degrees GEMUSE R [place] -24 degrees GEMUSE T [place] 31 degrees GEMUSE ECG Interpretation Sinus rhythm [...] mg/dL LAB CHEMISTRY METHOD 12/02/2024 12:52 PM [facility] Blood Venous blood specimen / Unknown Venipuncture / Unknown 12/02/2024 11:07 AM EST 12/02/2024 12:07 PM EST us Surekha RICKETTS LAB BLOOD ORDERABLES Final R esult [facility] [address] [place] [address], [place] [phone] * (ABNORMAL) BMP (12/02/2024 11:07 AM EST) Sodium 136 133 - 145 mmol/L LAB CHEMISTRY METHOD 12/02/2024 12:52 PM [facility] Potassium 3.8 3.5 - 5.5 mmol/L LAB CHEMISTRY METHOD 12/02/2024 12:52 PM [facility] Chloride 103 96 - 110 mmol/L LAB CHEMISTRY METHOD 12/02/2024 12:52 PM [facility] CO2 26 21 - 32 mmol/L LAB CHEMISTRY METHOD 12/02/2024 12:52 PM [facility] Anion Gap 7 3 - 11 LAB CHEMISTRY METHOD 12/02/2024 12:52 PM [facility] Glucose 146(H) 70 - 100 mg/dL LAB CHEMISTRY METHOD 12/02/2024 12:52 PM [facility] BUN 15 5 - 25 mg/dL LAB CHEMISTRY METHOD 12/02/2024 12:52 PM [facility] Creatinine 0.72 0.50 - 1.10 mg/dL LAB CHEMISTRY METHOD 12/02/2024 12:52 PM [facility] eGFR 92 >=60 mL/min/1. 73m2 LAB CHEMISTRY METHOD 12/02/2024 12:52 PM [facility] Comment:Calculation based on the??Chronic [...] RICKETTS LAB BLOOD ORDERABLES Final R esult [facility] [address] [place] [address], from Last 3 Months Insurance [facility] Member Subscriber Plan / Payer (Ef fective 2023-Present) Name:Angy JulienMaura jaimes Relation to Subscriber:Self Name:Angy Maura Smith Payer ID:[id number] Group ID:[id number] Type:Not on file Address: [facility] [place] [address] Advance Directives Documents on File Type Date Recorded Patient Line Erector Apprentice Expl anation Health Care Decision (hx) 05/24/2015 [...] currently active code status orders. Care Teams Medical Lab Tech Instructor Relationship Specialty Start Date End Date Mary Jo Conteh MD [address] [place] [address] , [address] Physician Associ D/B/A: [facility] [place], [place] PCP - General Internal Medicine 05/28/18
--- OUTSIDE RECORDS SUMMARY | 2025-02-19 07:40 | XMS_ITS | Encounter Summary ---
Author Organization [facility] Address [address] [place] [address] Care Team Providers Care Land Title Examiner Name Role Phone Mary Jo Conteh MD Primary Care Provider [phone] Reason for Visit * Reason Onset Date Comments Advice Only 02/05/2025 Encounter Details Date Type Department Care Team ([facility] st Contact Info) Description 02/05/2025 Telephone Bariatric Surgery - [place] [address] [place] [phone] Griffin Loya MD [address] [place] [address] [place] [address] Advice Only Social History Tobacco Use Types [...] a clearance letter to be emailed to [email or web address] ([email or web address]) clearing patient for hydro-colon therapy which [...] on filedocumented in this encounter Care Teams Land Title Examiner Relationship Specialty Start Date End Date Mary Jo Conteh MD [address] [place] [address] , [address] [facility] Physician Associ D/B/A: [facility] CARLOS MANUEL Zeng PCP - General Internal Medicine 05/28/18 documented as of this encounter
[2025-03-15 14:58] VITALS: BMI 29.1
--- NOTE | 2025-03-16 09:18 | P.CONAN_ITS ---
Documented by User: Candelaria Ramos NP 03/16/25 09:20 HPI - Anesthesia Eval Consult details Narrative: 64yo F for Upper Endoscopy and Colonoscopy Anesthesia Pre-Procedure Meds Is the patient on any of the following meds?: GLP1/DPP4 PMFSH Active Problems Active Problems: All Active Problems GERD (gastroesophageal reflux disease) (Acute) Pelvic pain in female (Acute) Thoracic spine pain (Acute) Lumbar pain (Acute) Neck pain (Acute) Dysuria (Acute) Upper abdominal pain (Acute) Conjunctivitis (Acute) Left knee pain (Acute) Thyroid nodule (Acute) Hematuria (Acute) Acute pyelonephritis (Acute) Urge urinary incontinence (Acute) Mild asthma (Acute) Dyspnea (Acute) Chronic pain syndrome (Acute) Left hip pain (Acute) Lumbar spondylosis (Acute) Discogenic low back pain (Acute) Lumbar radiculitis (Acute) Screen for colon cancer (Acute) Lumbar pain (Acute) B12 deficiency (Acute) Bladder pain (Acute) Interstitial cystitis (Acute) Generalized abdominal pain (Acute) PVCs (premature ventricular contractions) (Acute) Pure hypercholesterolemia (Acute) Breast mass, right (Acute) Gross hematuria (Acute) Microscopic hematuria (Acute) Cervical polyp (Acute) Pelvic pain (Acute) Needle exposure (Acute) Physical exam (Acute) Dysuria (Acute) Pre-op examination (Acute) Abdominal pain (Acute) Enlarged thoracic aorta (Acute) Hepatomegaly (Acute) HTN (hypertension) (Acute) Microscopic hematuria (Acute) Murmur (Acute) Frequent UTI (Acute) Iron deficiency anemia (Acute) Dysuria (Acute) Labile blood glucose (Acute) Anemia (Chronic) Dyslipidemia (Acute) Pernicious anemia (Acute) Cervicalgia of zdunbxih-qrvtrsc-vlkcn region (Acute) Nontoxic multinodular goiter (Acute) Paget's disease (Acute) Vitamin D deficiency (Acute) Osteoporosis (Acute) Past Medical History Medical History (Updated 03/15/25 @ 14:54 by Jenni Marin RN) Enlarged thoracic aorta Intussusception Hepatomegaly Microscopic hematuria Murmur Frequent UTI Iron deficiency anemia Dysuria Labile blood glucose Anemia Dyslipidemia Pernicious anemia Cervicalgia of byasfdjb-irovjeb-mfbum region Vitamin D deficiency Osteoporosis 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 Asthma Paget's disease Fibromyalgia Nontoxic multinodular goiter Osteoarthritis HTN (hypertension) Family History Family History Mother Diabetes HTN (hypertension) Father Pancreatic cancer Diabetes HTN (hypertension) Maternal Grandmother Myocardial infarction Cancer Brother Pancreatic cancer Sister Uterine cancer Family history of problems with anesthesia: No Surgical History Surgical History (Updated 03/15/25 @ 14:59 by Jenni Marin RN) Hx of hernia repair History of esophagogastroduodenoscopy (EGD) H/O colonoscopy History of excision of mass (08/21/23) History of removal of laparoscopic gastric banding device History of cystoscopy History of lobectomy of thyroid Mass of right parotid gland H/O laparoscopic adjustable gastric banding Hx of lithotripsy History of dilation and curettage History of delivery Hx of tonsillectomy Hx of gastric bypass History of Problems with Anesthesia: No Social History Social History Household Members: Family Housing: House Are you a primary career placement specialist to a significant other at home: No Do you presently have visiting nurse or other home services: No Alcohol intake: never Patient Tobacco Use Status: Former Tobacco user Tobacco use type: Cigarette e-Cigarette/Vaping Use: Never Used Second Hand Smoke Exposure: No Use of substances other than those prescribed or required for medical reasons: No Have you been hit, kicked, punched, or otherwise hurt by someone within the past year? If so, by whom?: No Are you DNR?: No Advance Directives: No Advance Directives Information Provided: Yes Advance Directives on File: No Patient : No : No Poor oral hygiene: No service: No Current occupational status: unemployed and disabled Sexual orientation: Straight/Heterosexual Gender identity: Female Cognitive needs: No Hearing needs: No Vision needs: Yes (glasses) Meds Allergies Allergy/AdvReac Type Severity Reaction Status Date / Time phentermine Allergy Intermediate Palpitation Verified 03/02/25 10:48 s Home Medications ?Medication ?Instructions ?Recorded ?Confirmed ?Last Taken ?Type albuterol sulfate 90 mcg/actuation 2 puff inhalation Q6H PRN 08/22/20 03/15/25 Unknown History aerosol inhaler Shortness Of Breath Or Wheezing calcium citrate 500 mg PO BID 08/17/21 03/15/25 11/08/23 History lancets 30 gauge (Pure Comfort #100 ea 08/17/21 03/02/25 Unknown History Safety Lancets) ascorbic acid (vitamin C) 500 mg 500 mg PO BID 04/24/24 03/15/25 Unknown History tablet (Vitamin C) cholecalciferol (vitamin D3) 1,250 1,250 mcg PO QWEEK 04/24/24 03/15/25 Unknown History mcg (50,000 unit) capsule semaglutide (weight loss) 0.25 mg subcut 03/16/25 03/16/25 Unknown History mg/0.5 mL subcutaneous pen injector (Wegovy) Exam Height,Weight and Vital Signs: Height 5 ft 1 in Weight 69.853 kg Narrative Narrative: ECHO 2023 Conclusions: - 1. Normal LV ejection fraction of 60 65% with impaired relaxation filling pattern 2. Normal cardiac valvular Doppler 3. Mildly dilated ascending aorta at 4 cm 4. No gross pericardial effusion Assessment and Plan Assessment Anesthesia Assessment: Chart Reviewed Final Anesthetic Review Family History of Problems with Anesthesia: No History of Problems with Anesthesia: No Documented by User: Pee Leija MD 03/17/25 10:14 [facility] Past Medical History Medical History (Updated 03/15/25 @ 14:54 by Jenni Marin RN) Enlarged thoracic aorta Intussusception Hepatomegaly Microscopic hematuria Murmur Frequent UTI Iron deficiency anemia Dysuria Labile blood glucose Anemia Dyslipidemia Pernicious anemia Cervicalgia of rmpnlifh-tyvgfug-kbfgw region Vitamin D deficiency Osteoporosis 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 Asthma Paget's disease Fibromyalgia Nontoxic multinodular goiter Osteoarthritis HTN (hypertension) Family History Family History Mother Diabetes HTN (hypertension) Father Pancreatic cancer Diabetes HTN (hypertension) Maternal Grandmother Myocardial infarction Cancer Brother Pancreatic cancer Sister Uterine cancer Surgical History Surgical History (Updated 03/15/25 @ 14:59 by Jenniconcepcion Marin RN) Hx of hernia repair History of esophagogastroduodenoscopy (EGD) H/O colonoscopy History of excision of mass (08/21/23) History of removal of laparoscopic gastric banding device History of cystoscopy History of lobectomy of thyroid Mass of right parotid gland H/O laparoscopic adjustable gastric banding Hx of lithotripsy History of dilation and curettage History of delivery Hx of tonsillectomy Hx of gastric bypass Social History Social History Household Members: Family Housing: House Are you a primary career placement specialist to a significant other at home: No Do you presently have visiting nurse or other home services: No Alcohol intake: never Patient Tobacco Use Status: Former Tobacco user Tobacco use type: Cigarette e-Cigarette/Vaping Use: Never Used Second Hand Smoke Exposure: No Use of substances other than those prescribed or required for medical reasons: No Have you been hit, kicked, punched, or otherwise hurt by someone within the past year? If so, by whom?: No Are you DNR?: No Advance Directives: No Advance Directives Information Provided: Yes Advance Directives on File: No Patient : No : No Poor oral hygiene: No service: No Current occupational status: unemployed and disabled Sexual orientation: Straight/Heterosexual Gender identity: Female Cognitive needs: No Hearing needs: No Vision needs: Yes (glasses) Meds Allergies Allergy/AdvReac Type Severity Reaction Status Date / Time phentermine Allergy Intermediate Palpitation Verified 03/02/25 10:48 s Home Medications ?Medication ?Instructions ?Recorded ?Confirmed ?Last Taken ?Type albuterol sulfate 90 mcg/actuation 2 puff inhalation Q6H PRN 08/22/20 03/15/25 Unknown History aerosol inhaler Shortness Of Breath Or Wheezing calcium citrate 500 mg PO BID 08/17/21 03/15/25 11/08/23 History lancets 30 gauge (Pure Comfort #100 ea 08/17/21 03/02/25 Unknown History Safety Lancets) ascorbic acid (vitamin C) 500 mg 500 mg PO BID 04/24/24 03/15/25 Unknown History tablet (Vitamin C) cholecalciferol (vitamin D3) 1,250 1,250 mcg PO QWEEK 04/24/24 03/15/25 Unknown History mcg (50,000 unit) capsule semaglutide (weight loss) 0.25 mg subcut 03/16/25 03/16/25 Unknown History mg/0.5 mL subcutaneous pen injector (Irina) Exam Airway Mallampati Class: II TM Dist: <=3cm Neck ROM: Full Heart: ok Lungs: ok Assessment and Plan Assessment Anesthesia Assessment: Anesthesia Plan Discussed Final Anesthetic Review NPO: Yes ASA Class: III Final Preanesthetic Review: No Changes in Pt Med Stat, Meds/Allgs Chart Reviewed, Consent Obtained/Reviewed and Anes Risks/Benef Reviewed Patient Risk: Intermediate Procedure Risk: Intermediate Anesthetic Plan Anesthetic Plan: Agree w/ Assess. and Plan and TIVA Disposition: Standard PACU
[2025-03-17 10:02] LABS: Glucose, Whole Blood 99 mg/dL (60-115)
[2025-03-17 10:07] VITALS: BP 122/59; PULSE 80; RESP 16; TEMP 36.4; O2SAT 100
[2025-03-17] MEDS: Lactated Ringers 1,000 ML 100 ML IVCONT (10:12)
[2025-03-17] MEDS: Dextrose 5 % 250 ML 125 ML IVCONT (10:18)
--- NOTE | 2025-03-17 11:54 | MHC.SHP ---
Pre-Procedural Eval Section A - 24 Hr Update-Section A only Date of Service: 03/17/25 Section B - Complete if H&P > 30 days Chief Complaint: gerd and abdominal pain, hx of polyps Relevant Family History (Specify if Yes): No Relevant Social History: None Present Medications: see Short Stay Collaborative assessment Medical History: Significant History (Enlarged thoracic aorta Intussusception Hepatomegaly Needle exposure Microscopic hematuria Murmur Frequent UTI Iron deficiency anemia Dysuria Labile blood glucose Anemia Dyslipidemia Pernicious anemia Pre-op examination Cervicalgia of dgcsnigx-qwlddoq-hbztp region Vitamin D deficiency Osteoporosis E) History of Previous Operations: Relevant previous surgery/procedure and date(s) (History of excision of mass (08/21/23) History of removal of laparoscopic gastric banding device History of cystoscopy History of lobectomy of thyroid Mass of right parotid gland H/O laparoscopic adjustable gastric banding Hx of lithotripsy History of dilation and curettage History of deliv) Allergies: Allergies Allergy/AdvReac Type Severity Reaction Status Date / Time phentermine Allergy Intermediate Palpitation Verified 03/02/25 10:48 s Review of Systems Sugical H&P ROS: Negative: Constitution, Cardiovascular, Respiratory, Neurological, Psychiatric, Hem-Onc, Allergic/Immunologic, Gastrointestinal, Genitourinary, Musculoskeletal, Integumentary, Endocrine and Eyes/Ears/Nose/Throat Exam Surgical H&P Exam: Normal: HEENT, Normal: Heart, Normal: Lungs, Normal: Extremities, Normal: Abdomen, Normal: Skin and Normal: Neurological Plan Diagnosis/Plan: Unchanged I have reviewed the history and physical and performed a pertinent physical examination on my patient. No changes have occurred unless specified. Time Spent With Patient Time: Total time managing care of this patient today ____ minutes.
--- NOTE | 2025-03-17 12:37 | HO.OPN-COLON ---
Colonoscopy Operative Note Operative Note Date of Service: 03/17/25 Narrative: Operative Information Procedure Description: EGD, Colonoscopy Indication: [] Anesthesia: [] FLEXIBLE TRANSORAL UPPER GASTROINTESTINAL ENDOSCOPY AND COLONOSCOPY PROCEDURE NOTE UPPER ENDOSCOPY Consent: Indications for the procedure and potential complications of bleeding, perforation, reaction to medications and missed diagnosis were discussed with the patient and informed consent was obtained. Instrument: Olympus GIF H 190 J mid size upper endoscope Monitoring: Vital signs and clinical assessment, continuous EKG monitoring, Pulse oximetry, Carbon Dioxide monitoring and blood pressure monitoring were done throughout the procedure. Procedure: The patient was placed in the left lateral decubitis position and pre-procedure medications were administered and a bite block was placed. The endoscope was inserted into the mouth and advanced under direct vision to the third part of duodenum. A careful inspection was made as the upper endoscope was withdrawn including a retroflexed examination of the proximal stomach; Findings and interventions are described below. hx of gastric bypass Findings: Larynx:normal Esophagus: GE junction at 35 cm, diaphragm hiatus at 37 cm, small hiatal hernia, mild esophagitis Stomach pouch: ulcer noted on gastric side of anastomosis, about 12-14 mm in diameter. bx taken from edges and from the pouch as well--Radhames grade III jejunum: normal, Intervention: Biopsies as noted above, COLONOSCOPY Instrument: Olympus variable stiffness pediatric scope 190L Colonoscopy Monitoring: Vital signs and clinical assessment, continuous EKG monitoring, Pulse oximetry, Carbon Dioxide monitoring and blood pressure monitoring were done throughout the procedure. Colon withdrawal time was 14 minutes. Procedure: The patient was placed in the left lateral decubitis position and pre-procedure medications were administered. After a digital rectal examination of the ano-rectum, the video colonoscope was inserted into the rectum and advanced through the colon to the cecum/TI. The colonoscope was slowly withdrawn in a retrograde panoramic fashion and the colon mucosa was carefully examined including a retroflexed view of the rectum. Findings and interventions are described below. Procedure Difficulty:moderate--tortuous colon Findings: Terminal Ileum-normal Cecum:normal Ascending Colon: normal Transverse Colon - 4-6 mm sessile polyp removed with cold forceps Descending Colon: 4-6 mm sessile polyp removed with cold forceps Sigmoid Colon: normal Rectum: Retroflexion with small internal hemorrhoids, grade I Anorectum - normal Colon preparation: [place] Bowel Preparation Scale Right colon; 3 Transverse colon: 2 Left colon; 2 (0 = Unprepared colon segment with mucosa not seen due to solid stool that cannot be cleared. 1 = Portion of mucosa of the colon segment seen, but other areas of the colon segment not well seen due to staining, residual stool and/or opaque liquid. 2 = Minor amount of residual staining, small fragments of stool and/or opaque liquid, but mucosa of colon segment seen well. 3 = Entire mucosa of colon segment seen well with no residual staining, small fragments of stool or opaque liquid) Impression and Post Procedure Diagnosis: Endoscopy Findings: anastomotic ulcer hiatal hernia Colonoscopy Findings: colon polyps internal hemorrhoids Plan: Await Pathology results Repeat Colonoscopy in 5 years or earlier if clinically indicated High fiber diet leaflet avoid straining at stool, epsom salts and sitz bath, anusol supps or cream ensure taking PPI--open capsule and mix with apple sauce add carafate maybe repeat EGD in 6 months or so avoid nsaids Above findings were reviewed with the patient and relevant handouts were provided if indicated.
[2025-03-17 12:42] VITALS: BP 117/68; PULSE 74; RESP 18; TEMP 36.2; O2SAT 99
[2025-03-17] MEDS: Acetaminophen 325 MG TABLET 650 MG PO (12:51)
[2025-03-17 12:57] VITALS: BP 112/63; PULSE 76; RESP 18; TEMP 36.3; O2SAT 99
[2025-03-18 07:20] LABS: Glucose, Whole Blood 95 mg/dL (60-115)
== END 2025-03-17 13:27 | disposition home or self-care (01) ==
PROVIDERS: PCP Internal Medicine; Visit Provider Internal Medicine Gastroenterology
PROC: (CPT 45380; principal; 2025-03-17 12:40)
DX: K51.40 Inflammatory polyps of colon without complications (principal); K64.0 First degree hemorrhoids; K56.2 Volvulus; R10.9 Unspecified abdominal pain; D64.9 Anemia, unspecified; K22.10 Ulcer of esophagus without bleeding; K29.60 Other gastritis without bleeding; K44.9 Diaphragmatic hernia without obstruction or gangrene; B96.81 Helicobacter pylori [H. pylori] as the cause of diseases classified elsewhere; K63.89 Other specified diseases of intestine; K91.89 Other postprocedural complications and disorders of digestive system; K21.9 Gastro-esophageal reflux disease without esophagitis; R10.84 Generalized abdominal pain; I10 Essential (primary) hypertension; E78.00 Pure hypercholesterolemia, unspecified; J45.909 Unspecified asthma, uncomplicated; E04.1 Nontoxic single thyroid nodule; G89.4 Chronic pain syndrome; E53.8 Deficiency of other specified B group vitamins; E55.9 Vitamin D deficiency, unspecified; R16.0 Hepatomegaly, not elsewhere classified; Z98.84 Bariatric surgery status; Z87.891 Personal history of nicotine dependence
CPT/HCPCS: 45380; 43239; 82947; 88305; 88313; 88342; J2003; J2704; J3010

== ENCOUNTER 2025-03-30 09:24 | Outpatient (AMB) | payer OTHER, SELFPAY ==
--- NOTE | 2025-03-30 09:28 | MHC.OFFVIS ---
Vital Signs 03/30/25 09:47 Height 5 ft 1 in Weight 151 lb 4 oz BMI 28.6 BP 138/68 Blood Pressure Location Lt brachial Position Sitting Pulse 58 Intake Visit Reasons: follow up for abdominal pain Intake Note: Patient is seen in office for follow up visit, following for abdominal pain-post EGD/Colonoscopy with Dr Chatman. Pt c/o: surgery 03/17/[address] Chatman, went to [facility] ED due to pain in the abdomen, denies any other concern Operations Support Coordinator Required: Yes Operations Support Coordinator Language: Cognos Report Developer Services: Operations Support Coordinator Present Operations Support Coordinator Name: Surekha WILKERSON Information Interpreted: non-clinical & clinical Summer Law Associate: Summer Law Associate Present Accompanied by: Self / Same As Patient Allergies phentermine Allergy (Intermediate, Verified 03/30/25 09:48) Palpitations HPI Comments Details: Patient reports continued abdominal pain. Underwent EGD and colonoscopy. Several benign polyps were identified. EGD revealed marginal ulcer at gastric pouch following gastric bypass surgery. Carafate was recommended. Not sure if this medication was ordered. She recently was evaluated in the emergency department at [facility] and was noted to be constipated as well. FOR[facility]LY [facility] Medical History Enlarged thoracic aorta Intussusception Hepatomegaly Microscopic hematuria Murmur Frequent UTI Iron deficiency anemia Dysuria Labile blood glucose Anemia Dyslipidemia Pernicious anemia Cervicalgia of mfimyjja-obqiqbs-lbbcs region Vitamin D deficiency Osteoporosis 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 Asthma Paget's disease Fibromyalgia Nontoxic multinodular goiter Osteoarthritis HTN (hypertension) Surgical History Hx of hernia repair History of esophagogastroduodenoscopy (EGD) H/O colonoscopy History of excision of mass (08/21/23) History of removal of laparoscopic gastric banding device History of cystoscopy History of lobectomy of thyroid Mass of right parotid gland H/O laparoscopic adjustable gastric banding Hx of lithotripsy History of dilation and curettage History of delivery Hx of tonsillectomy Hx of gastric bypass Family History Mother Diabetes HTN (hypertension) Father Pancreatic cancer Diabetes HTN (hypertension) Maternal Grandmother Myocardial infarction Cancer Brother Pancreatic cancer Sister Uterine cancer Social History Household Members: Family Housing: House Are you a primary care process manager to a significant other at home: No Do you presently have visiting nurse or other home services: No Alcohol intake: never Patient Tobacco Use Status: Former Tobacco user Tobacco use type: Cigarette e-Cigarette/Vaping Use: Never Used Second Hand Smoke Exposure: No service: No Current occupational status: unemployed and disabled Sexual orientation: Straight/Heterosexual Gender identity: Female Cognitive needs: No Hearing needs: No Vision needs: Yes (glasses) Female Reproductive History Menstrual Age of Menarche: 10 Review of Systems Const All systems reviewed & are unremarkable except as noted in HPI and below Physical Exam Vital Signs: Last Vital Signs Pulse 58 03/30/25 09:47 BP 138/68 03/30/25 09:47 BMI result Body Mass Index 28.6 Const General: no acute distress Nutritional Appearance: well nourished Orientation/consciousness: patient oriented x3 Limitations: no limitations Resp Effort & Inspection: normal respiratory effort, no audible wheezes, no cough and no respiratory distress GI Other: No palpable masses, several midline incisions identified and trocar incisions, no definite hernia noted. Inspection: Yes normal to inspection Palpation (GI): Soft to palpation, Tenderness to palpation present (GI) in the LLQ and in the RLQ, no guarding, not rigid and No hepatosplenomegaly present Neuro General: patient oriented x3 Extrem Other: No edema Assessment & Plan Assessment & Plan (1) Gastric ulcer: Code(s): K25.9 - Gastric ulcer, unspecified as acute or chronic, without hemorrhage or perforation Category: Medical Plan Will add Carafate and pantoprazole as recommended by Dr. Chatman. She will follow up with Dr. Chatman next month. Follow-up PRN Medications: New sucralfate (Carafate) 1 g PO QIDACHS 60 tabs 0RF Refilled pantoprazole 20 mg PO BID 28 tabs 0RF 2 weeks Coding Level of Care Code Est Pt Level 3 (97142) Diagnoses Gastric ulcer K25.9
[2025-03-30 09:47] VITALS: BP 138/68; PULSE 58; BMI 28.6
--- OUTSIDE RECORDS SUMMARY | 2025-03-30 10:02 | XMS_ITS | Encounter Summary ---
Author Organization [facility] Address [address] [place] [address] Care Team Providers Care Manager Inside Name Role Phone Mary Jo Conteh MD Primary Care Provider Reason for Visit * Reason Comments Abdominal Pain Flank Pain Abdominal pain and l ower back pain x 1 year Encounter Details Date Type Department Care Team (Late st Contact Info) Description 03/25/2025 4:46 PM EDT - 03/25/2025 9:19 PM EDT Emergency [facility] Emergency [address] [place] [id number] Chronic idiopathic constipation (Primary Dx) Discharge Disposition: Home or Self Care Social History Tobacco Use Types Packs/Day Years Used Date Smoking Tobacco: Former Cigarettes Smokeless Tobacco: Never Alcohol Use Standard Drinks/Week Comments No 0 (1 standard drink = 0.6 oz pur e alcohol) Comments No Sex and Gender Information Value Date Recorded Sex Assigned at Female 10/14/2024 7:16 PM EST Legal Sex Female 12:24 AM EST Gender Identity Female 10/14/2024 7:16 PM EST Sexual Orientation Straight 10/14/2024 7: 16 PM EST documented as of this encounter Last Filed Vital Signs Vital Sign Reading Time Taken Comments Blood Pressure 123/74 03/25/2025 6:35 PM EDT Pulse 73 03/25/2025 6:35 PM EDT Temperature 36.6 ??C (97.8 ??F) 03/25/2025 6:35 PM ED T Respiratory Rate 18 03/25/2025 6:35 PM EDT Oxygen Saturation 100% 03/25/2025 6:35 PM EDT Inhaled Oxygen Concentration - - Weight 68 kg (150 lb) 03/25/2025 1:38 PM EDT Height 152.4 cm (5') 03/25/2025 1:38 PM EDT Body Mass Index 29.29 03/25/2025 1:38 PM EDT documented in this encounter Discharge Instructions * Attachments The following attachments cannot be sent through Care Everywhere. * Constipation (Serbian) * Constipation: Here's Help: Video (Serbian) documented in this encounter Medications at Time of Discharge acetaminophen (TYLENOL) 500 mg tablet Take 2 tablets (1,000 mg total) by mouth every 6 (six) hours if needed for mild pain for up to 30 doses. 30 tablet 12/09/2024 albuterol HFA (Ventolin HFA) 90 mcg/actuation inhaler AMLODIPINE BESYLATE, BULK, MISC Take 20 mg by mouth 1 (one) time each day. ascorbic [id number] 1,000 mg powder effervescent in packet Take [...] mouth every morning for 30 days. 03/24/2024 polyethylene glycol (MIRALAX) 17 gram packet Take 17 g by mouth 1 (one) time each day for 30 doses. 51 g 03/25/2025 documented as of this encounter Ordered Prescriptions Prescription Sig Dispense Quantity Refills Last Filled Start Date End Date polyethylene glycol (MIRALAX) 17 gram packet Take 17 g by mouth 1 (one) time each day for 30 doses. 51 g 03/25/2025 04/24/2025 documented in this encounter Discharge Disposition Disposition Code Departure Means Destination Comment s Home or Self Care Reviewed discharge and rx instructions, verbalized understanding, self ambulated to exit documented in this encounter Progress Notes * Maryana Peña RN - 03/25/2025 1:39 PM EDT She has bilateral lower back pain and lower abdominal that is chronic but recently got worse. She took gabapentin and is wearing lidocaine patches on both areas. She has a frozen bottle of water and states that her skin is dry and her mouth is very dry. documented in this encounter Plan of Treatment Not on file documented as of this encounter Procedures Procedure Name Priority Date/Time Associated Diagnosis Comments CT ABDOMEN PELVIS W CONTRAST STAT 03/25/2025 8:14 PM EDT URINALYSIS WITH REFLEX MICROSCOPIC AND CULTURE STAT 03/25/2025 1:55 PM EDT REBOLLEDO URINE CULTURE TUBE STAT 03/25/2025 1:55 PM EDT URINALYSIS WITH REFLEX MICROSCOPIC AND CULTURE STAT 03/25/2025 1:55 PM EDT CULTURE URINE STAT 03/25/2025 1:55 PM EDT CBC WITH AUTO DIFFERENTIAL STAT 03/25/2025 1:53 PM EDT CBC AND DIFFERENTIAL STAT 03/25/2025 1:53 PM EDT COMPREHENSIVE METABOLIC PANEL STAT 03/25/2025 1:53 PM EDT documented in this encounter Results * CT Abdomen Pelvis w Contrast (03/25/2025 8:14 PM EDT) Anatomical Region Laterality Modality Body Computed Tomogra phy 03/25/2025 8:56 PM EDT Impressions 03/25/2025 8:56 PM EDT 1. Moderate colonic stool burden most pronounced within the ascending colon. No bowel obstruction. 2. Hepatomegaly. This document has been electronically signed by: Reji Stephenson MD on 03/25/2025 20:56:07 Narrative 03/25/2025 8:56 PM EDT INDICATION: Abdominal pain, fever CT abdomen and pelvis with IV contrast. COMPARISON: CT abdomen and pelvis dated 01/26/25 at 21:02 EDT FINDINGS: Minimal atelectasis along the lung bases. Hepatic granulomas. Liver is enlarged with right lobe measuring 21.4 cm. Cholecystectomy with associated extrahepatic biliary ductal dilatation and mild intrahepatic biliary ductal dilatation, stable. No choledocholithiasis identified. Normal spleen. Normal pancreas. Normal adrenal glands. Symmetric renal enhancement. No hydronephrosis. Visualized portions of the appendix are normal in caliber. No periappendiceal or pericecal inflammatory changes. Moderate colonic stool burden most pronounced within the cecum and ascending colon. No bowel obstruction. Status post gastric bypass. No mesenteric or retroperitoneal lymphadenopathy. Mild aortoiliac atherosclerotic vascular calcifications. Normal appearance of the urinary bladder. No adnexal mass. Mild spondylosis. No acute fracture or suspicious bone lesion. Procedure Note Reji Stephenson MD - 03/25/2025 INDICATION: Abdominal pain, fever CT abdomen and pelvis with IV contrast. COMPARISON: CT abdomen and pelvis dated 01/26/25 at 21:02 EDT FINDINGS: Minimal atelectasis along the lung bases. Hepatic granulomas. Liver is enlarged with right lobe measuring 21.4 cm. Cholecystectomy with associated extrahepatic biliary ductal dilatationand mild intrahepatic biliary ductal dilatation, stable. No choledocholithiasis identified. Normal spleen. Normal pancreas. Normal adrenal glands. Symmetric renal enhancement. No hydronephrosis. Visualized portions of the appendix are normal in caliber. No periappendiceal or pericecal inflammatory changes. Moderate colonicstool burden most pronounced within the cecum and ascending colon. No bowel obstruction. Status post gastric bypass. No mesenteric or retroperitoneal lymphadenopathy. Mild aortoiliac atherosclerotic vascular calcifications. Normal appearance of the urinary bladder. No adnexal mass. Mild spondylosis. No acute fracture or suspicious bone lesion. IMPRESSION: 1. Moderate colonic stool burden most pronounced within the ascending colon. No bowel obstruction. 2. Hepatomegaly. This document has been electronically signed by: Reji Stephenson MD on 03/25/2025 20:56:[address] PROCEDURES Final Resul t * Culture urine (03/25/2025 1:55 PM EDT) Culture, Urine 10,000-49,000 CFU/mL Mixed urogenital fabiana, no uropathogens present. Suggest repeat specimen if clinically indicated. 03/27/2025 9:28 AM EDT [facility] Urine Urine specimen obtained by clean catch procedure / Unknown Non-blood Collection / Unknown 03/25/2025 1:55 PM EDT 03/25/2025 2:20 PM EDT Allan Tucker DO LAB MICROBIOLOGY - GENERAL ORDERABLES Final Result Performing Organization Address City/[facility]/ZIP Co de Phone Number [facility] [address] [place] [address], [place] [phone] * [place] urine culture tube (03/25/2025 1:55 PM EDT) Pathologist [facility] Extra Tube Hold for add-ons. 03/25/2025 4:02 PM EDT [facility] Comment:Auto resulted. Urine Urine specimen obtained by clean catch procedure / Unknown Non-blood Collection / Unknown 03/25/2025 1:55 PM EDT 03/25/2025 2:08 PM EDT Allan Tucker DO LAB URINE ORDERABLES Final Result Performing Organization Address [facility]/ZIP Co de Phone Number [facility] [address] [place] [address], [place] [phone] * (ABNORMAL) Urinalysis with reflex microscopic and culture (03/25/2025 1:55 PM EDT) [facility] Specific [place] Urine 1.023 1.003 - 1.030 LAB URINALYSIS - AUTOMATED METHOD 03/25/2025 2:20 PM [facility] pH, Urine 6.0 5.0 - 8.0 pH LAB URINALYSIS - AUTOMATED METHOD 03/25/2025 2:20 PM [facility] Leukocytes, Urine Small(A) Negative LAB URINALYSIS - AUTOMATED METHOD 03/25/2025 2:20 PM [facility] Nitrite, Urine Negative Negative LAB URINALYSIS - AUTOMATED METHOD 03/25/2025 2:20 PM [facility] Protein, Urine 30(A) <=Trace mg/dL LAB URINALYSIS - AUTOMATED METHOD 03/25/2025 2:20 PM [facility] Glucose, Urine Negative Negative mg/dL LAB URINALYSIS - AUTOMATED METHOD 03/25/2025 2:20 PM [facility] Ketones, Urine Trace(A) Negative mg/dL LAB URINALYSIS - AUTOMATED METHOD 03/25/2025 2:20 PM [facility] Urobilinogen, Urine 1.0 0.2 - 1.0 mg/dL LAB URINALYSIS - AUTOMATED METHOD 03/25/2025 2:20 PM [facility] Bilirubin, Urine Negative Negative LAB URINALYSIS - AUTOMATED METHOD 03/25/2025 2:20 PM [facility] Blood, Urine Trace(A) Negative LAB URINALYSIS - AUTOMATED METHOD 03/25/2025 2:20 PM [facility] RBC, Urine 7.3(H) 0 - 4 /HPF LAB URINALYSIS - AUTOMATED METHOD 03/25/2025 2:20 PM [facility] WBC, Urine 4.5(H) 0 - 4 /HPF LAB URINALYSIS - AUTOMATED METHOD 03/25/2025 2:20 PM [facility] Squamous Epithelial, Urine 75(H) 0 - 60 /LPF LAB URINALYSIS - AUTOMATED METHOD 03/25/2025 2:20 PM EDT [facility] Bacteria, Urine Negative Negative /HPF LAB URINALYSIS - AUTOMATED METHOD 03/25/2025 2:20 PM EDT [facility] Hyaline Casts, Urine 2.0 0 - 3 /LPF LAB URINALYSIS - AUTOMATED METHOD 03/25/2025 2:20 PM EDT [facility] Urine Urine specimen obtained by clean catch procedure / Unknown Non-blood Collection / Unknown 03/25/2025 1:55 PM EDT 03/25/2025 2:08 PM EDT us Allan Tucker DO LAB URINE ORDERABLES Final Result [facility] [address] [place] [address], * (ABNORMAL) CBC auto differential (03/25/2025 1:53 PM EDT) WBC 7.8 4.8 - 10.8 K/mcL LAB HEMETOLOGY METHOD 03/25/2025 2:16 PM EDT [facility] RBC 3.40(L) 3.80 - 4.80 M/mcL LAB HEMETOLOGY METHOD 03/25/2025 2:16 PM EDT [facility] Hemoglobin 8.0(L) 11.5 - 16.0 g/dL LAB HEMETOLOGY METHOD 03/25/2025 2:16 PM EDT [facility] Hematocrit 26.8(L) 35.0 - 47.0 % LAB HEMETOLOGY METHOD 03/25/2025 2:16 PM EDT [facility] MCV 79.5 79.0 - 98.0 FL LAB HEMETOLOGY METHOD 03/25/2025 2:16 PM EDT [facility] MCH 23.7(L) 27.0 - 32.0 pcg LAB HEMETOLOGY METHOD 03/25/2025 2:16 PM EDT [facility] MCHC 29.9(L) 32.0 - 37.0 g/dL LAB HEMETOLOGY METHOD 03/25/2025 2:16 PM [facility] RDW 19.1(H) 11.0 - 15.0 % LAB HEMETOLOGY METHOD 03/25/2025 2:16 PM EDT [facility] Platelets 494(H) 130 - 400 K/mcL LAB HEMETOLOGY METHOD 03/25/2025 2:16 PM [facility] MPV 10.4 7.0 - 11.0 FL LAB HEMETOLOGY METHOD 03/25/2025 2:16 PM [facility] NRBC 0.0 <1.0 % LAB HEMETOLOGY METHOD 03/25/2025 2:[facility] NRBC Absolute 0.00 <0.10 K/mcL LAB HEMETOLOGY METHOD 03/25/2025 2:16 PM [facility] Neutrophils Relative 76.8 % LAB HEMETOLOGY METHOD 03/25/2025 2:16 PM [facility] Lymphocytes Relative 15.9 % LAB HEMETOLOGY METHOD 03/25/2025 2:16 PM [facility] Monocytes Relative 5.5 % LAB HEMETOLOGY METHOD 03/25/2025 2:16 PM [facility] Eosinophils Relative 0.8 % LAB HEMETOLOGY METHOD 03/25/2025 2:16 PM [facility] Basophils Relative 0.5 % LAB HEMETOLOGY METHOD 03/25/2025 2:16 PM [facility] Immature Granulocytes Relative 0.5 % LAB HEMETOLOGY METHOD 03/25/2025 2:16 PM EDT [facility] Neutrophils Absolute 5.96 1.50 - 7.00 K/mcL LAB HEMETOLOGY METHOD 03/25/2025 2:16 PM EDT [facility] Lymphocytes Absolute 1.23 1.00 - 5.00 K/mcL LAB HEMETOLOGY METHOD 03/25/2025 2:16 PM EDT [facility] Monocytes Absolute 0.43 0.20 - 1.00 K/mcL LAB HEMETOLOGY METHOD 03/25/2025 2:16 PM EDT [facility] Eosinophils Absolute 0.06 0.00 - 0.50 K/mcL LAB HEMETOLOGY METHOD 03/25/2025 2:16 PM EDT [facility] Basophils Absolute 0.04 0.00 - 0.20 K/mcL LAB HEMETOLOGY METHOD 03/25/2025 2:16 PM EDT [facility] Immature Granulocytes Absolute 0.04(H) 0.00 - 0.03 K/mcL LAB HEMETOLOGY METHOD 03/25/2025 2:16 PM EDT [facility] Blood Venous blood specimen / Unknown Venipuncture / Unknown 03/25/2025 1:53 PM EDT 03/25/2025 2:09 PM EDT us Allan Tucker DO LAB BLOOD ORDERABLES Final Result [facility] [address] [place] [address], * (ABNORMAL) Comprehensive metabolic panel (03/25/2025 1:53 PM EDT) Sodium 139 133 - 145 mmol/L LAB CHEMISTRY METHOD 03/25/2025 2:37 PM EDT [facility] Potassium 4.3 3.5 - 5.5 mmol/L LAB CHEMISTRY METHOD 03/25/2025 2:37 PM EDT [facility] Chloride 111(H) 96 - 110 mmol/L LAB CHEMISTRY METHOD 03/25/2025 2:37 PM [facility] CO2 23 21 - 32 mmol/L LAB CHEMISTRY METHOD 03/25/2025 2:37 PM [facility] Anion Gap 5 3 - 11 LAB CHEMISTRY METHOD 03/25/2025 2:37 PM [facility] Glucose 95 70 - 100 mg/dL LAB CHEMISTRY METHOD 03/25/2025 2:37 PM [facility] BUN 17 5 - 25 mg/dL LAB CHEMISTRY METHOD 03/25/2025 2:37 PM [facility] Creatinine 0.69 0.50 - 1.10 mg/dL LAB CHEMISTRY METHOD 03/25/2025 2:37 PM [facility] eGFR 96 >=60 mL/min/1. 73m2 LAB CHEMISTRY METHOD 03/25/2025 2:37 PM [facility] Comment:Calculation based on the Chronic Kidney Disease Epidemiology Collaboration (CKD-EPI) equation refit without adjustment for race. BUN/Creatinine Ratio 24.6 LAB CHEMISTRY METHOD 03/25/2025 2:37 PM [facility] Calcium 9.4 8.5 - 10.5 mg/dL LAB CHEMISTRY METHOD 03/25/2025 2:37 PM [facility] AST (SGOT) 22 10 - 42 unit/L LAB CHEMISTRY METHOD 03/25/2025 2:37 PM [facility] ALT (SGPT) 17 10 - 60 unit/L LAB CHEMISTRY METHOD 03/25/2025 2:37 PM [facility] Alkaline Phosphatase 102 42 - 121 unit/L LAB CHEMISTRY METHOD 03/25/2025 2:37 PM [facility] Total Protein 7.6 6.0 - 8.0 g/dL LAB CHEMISTRY METHOD 03/25/2025 2:37 PM [facility] Albumin 3.4 3.2 - 5.0 g/dL LAB CHEMISTRY METHOD 03/25/2025 2:37 PM EDT [facility] Total Bilirubin 0.3 0.0 - 1.4 mg/dL LAB CHEMISTRY METHOD 03/25/2025 2:37 PM EDT [facility] Blood Venous blood specimen / Unknown Venipuncture / Unknown 03/25/2025 1:53 PM EDT 03/25/2025 2:09 PM EDT us Allan Tucker DO LAB BLOOD ORDERABLES Final Result [facility] [address] [place] [address], [place] [phone] documented in this encounter Visit Diagnoses Diagnosis Chronic idiopathic constipation- Primary Unspecified constipation documented in this encounter Administered Medications Inactive Administered Medications - up to 3 most recent administrations Medication Order MAR Action Action Date Dose Rate Site iopamidoL (ISOVUE-370) 370 mg iodine /mL (76 %) injection 90 mL 90 mL, intravenous, Once in imaging, Starting on Jodi 03/25/25 at 2007, For 1 dose Given 03/25/2025 8:10 PM EDT 90 mL ketorolac (TORADOL) injection 15 mg 15 mg, intravenous, Once, On Jodi 03/25/25 at 1732, For 1 dose Given 03/25/2025 5:41 PM EDT 15 mg lactated Ringer's bolus 1,000 mL 1,000 mL, intravenous, at 1,000 mL/hr, Administer over 1 Hours, Once, On Jodi 03/25/25 at 1732, For 1 dose New Bag 03/25/2025 5:41 PM EDT 1,000 mL 1000 mL/hr sodium chloride 0.9 % flush 10 mL 10 mL, intravenous, Once, On Jodi 03/25/25 at 2008, For 1 dose Given 03/25/2025 8:10 PM EDT 10 mL documented in this encounter Active and Recently Administered Medications Times are shown in EDT. Scheduled Medication Order 03/23/2025 03/24/2025 03/25/2025 iopamidoL (ISOVUE-370) 370 mg iodine /mL (76 %) injection 90 mL (COMPLETED) 90 mL, intravenous, Once in imaging, Starting on Jodi 03/25/25 at 2007, For 1 dose 2009 (Given - Provid er: Uma Allen) ketorolac (TORADOL) injection 15 mg (COMPLETED) 15 mg, intravenous, Once, On Jodi 03/25/25 at 1732, For 1 dose 1740 (Given - Provid er: Sue Moncada RN) lactated Ringer's bolus 1,000 mL (COMPLETED) 1,000 mL, intravenous, at 1,000 mL/hr, Administer over 1 Hours, Once, On Jodi 03/25/25 at 1732, For 1 dose 1740 (New Bag - Prov ider: Sue Moncada RN)1999 (Stopped - Provider: Sue Moncada RN) sodium chloride 0.9 % flush 10 mL (COMPLETED) 10 mL, intravenous, Once, On Jodi 03/25/25 at 2008, For 1 dose 2009 (Given - Provid er: Uma Allen) documented in this encounter Care Teams Manager Inside Relationship Specialty Start Date End Date Mary Jo Conteh MD 2 [facility] , [address] Physician Associ D/B/A: [facility] CARLOS MANUEL Zeng PCP - General Internal Medicine 05/28/18 documented as of this encounter
--- OUTSIDE RECORDS SUMMARY | 2025-03-30 10:02 | XMS_ITS | Clinical Summary ---
Author Organization [facility] Address [address] [place] [address] Phone Care Team Providers Care Electrical Subcontractor Name Role Phone Mary Jo Conteh MD Primary Care Provider [phone] Allergies No known active allergies Medications albuterol HFA (Ventolin HFA) 90 mcg/actuation inhaler Active AMLODIPINE BESYLATE, BULK, MISC Take 20 mg by mouth 1 (one) time each day. Active cholecalciferol (VITAMIN D-3) 1,250 mcg (50,000 unit) capsule 4 Active mo/Non-Adher Bndg/petrolatum (GAUZE PADS AND DRESSINGS TOP) 2 Units by Does not apply route daily for 15 doses. Apply as many gauzes as necessary to keep the area dry. 3 Active METOPROLOL SUCCINATE ORAL Take 25 mg by mouth 1 (one) time each day. Active ascorbic hiog-bhjjlkts-ak n 1,000 mg powder effervescent in packet Take by mouth. Activ e nystatin (MYCOSTATIN) cream Apply 1 Application topically 1 (one) time each day. 8 Active phentermine 15 mg capsule Take 1 Capsule by mouth every morning for 30 days. 4 Active acetaminophen (TYLENOL) 500 mg tablet Take 2 tablets (1,000 mg total) by mouth every 6 (six) hours if needed for mild pain for up to 30 doses. 30 tablet 5 Active oxyCODONE (ROXICODONE) 5 mg immediate release tablet Take 1 tablet (5 mg total) by mouth every 6 (six) hours if needed for severe pain. Max Daily Amount: 20 mg 15 tablet 5 Active polyethylene glycol (MIRALAX) 17 gram packet Take 17 g by mouth 1 (one) time each day for 30 doses. 51 g 5 04/24/20 25 Active Active Problems Problem Noted Date Diagnosed Date Facial rhytids 10/03/2020 Calculus of gallbladder with chronic cholecystitis without obstruction 09/14/2020 Asthma 05/29/2018 Hypercholesteremia 05/29/2018 Obesity, Class I, BMI 30-34.9 05/29/2018 Resolved Problems Problem Noted Date Diagnosed Date Resolved Date Umbilical hernia 11/19/2024 12/09/2024 Encounters Date Type Department Care Team Description 03/25/2025 4:46 PM EDT - 03/25/2025 9:19 PM EDT Emergency [facility] Emergency [address] [place] [phone] Chronic idiopathic constipation (Primary Dx) Discharge Disposition: Home or Self Care 02/05/2025 Telephone Bariatric Surgery - [place] [address] [facility] [address] [place] [address] Griffin Loya MD Advice Only 01/26/2025 6:31 PM EDT - 01/26/2025 10:56 PM EDT Emergency [facility] Emergency [address] [place] [phone] Chaz Jose MD Urinary tract infection without hematuria, site unspecified (Primary Dx); Constipation, unspecified constipation type; Nausea and vomiting, unspecified vomiting type Discharge Disposition: Home or Self Care from [...] Mass Index 29.29 03/25/2025 1:38 PM EDT Plan of Treatment Health Maintenance [...] history exists Hypertension/CHF/CAD Annual BMP Blood Test 03/25/2026 03/25/2025, 01/26/2025, 12/02/2024, Additional history exists Influenza Vaccine Completed 07/30/2024, , 08/14/2022, Additional [...] this topic Medical Devices Implanted Type Area Shank Carrier Device Identifier Shelf Expiration Date Model / Serial / Lot Mesh Ventralex St 1.7in Sm [place] W/Strap - Sn/A - [id number] Implanted:Qty: 1 on 12/09/2024 by Griffin Loya MD at [facility] Surgical Mesh Sling Implants N/A: Umbilical CR BARD - DAVOL DIV [id number] / N/A / N/A Procedures Procedure Name Priority Date/Time Associated Diagnosis Comments CT ABDOMEN PELVIS W CONTRAST STAT 03/25/2025 8:14 PM EDT [place] URINE CULTURE TUBE STAT 03/25/2025 1:55 PM EDT URINALYSIS WITH REFLEX MICROSCOPIC AND CULTURE STAT 03/25/2025 1:55 PM EDT URINALYSIS WITH REFLEX MICROSCOPIC AND CULTURE STAT 03/25/2025 1:55 PM EDT CULTURE URINE STAT 03/25/2025 1:55 PM EDT CBC WITH AUTO DIFFERENTIAL STAT 03/25/2025 1:53 PM EDT COMPREHENSIVE METABOLIC PANEL STAT 03/25/2025 1:53 PM EDT CBC AND DIFFERENTIAL STAT 03/25/2025 1:[address] ABDOMEN PELVIS W CONTRAST STAT 01/26/2025 [...] CULTURE URINE STAT 01/26/2025 7:15 PM EDT from Last 3 Months Results * CT Abdomen Pelvis w Contrast (03/25/2025 8:14 PM EDT) Only the most recent of2 resultswithin the time period is included. Anatomical Region Laterality Modality Body Computed Tomogra [...] IMG CT PROCEDURES Final Resul t * (ABNORMAL) Urinalysis with reflex microscopic and culture (03/25/2025 1:55 PM EDT) Only the most recent of2 resultswithin the time period is included. Specific [place] Urine 1.023 1.003 - 1.030 LAB URINALYSIS - AUTOMATED METHOD 03/25/2025 2:20 PM [facility] pH, Urine 6.0 5.0 - 8.0 pH LAB URINALYSIS - AUTOMATED METHOD 03/25/2025 2:20 PM [facility] Leukocytes, Urine Small(A) Negative LAB URINALYSIS - AUTOMATED METHOD 03/25/2025 2:20 PM [facility] Nitrite, Urine Negative Negative LAB URINALYSIS - AUTOMATED METHOD 03/25/2025 2:20 PM [facility] Protein, Urine 30(A) <=Trace mg/dL LAB URINALYSIS - AUTOMATED METHOD 03/25/2025 2:20 PM [facility] Glucose, Urine Negative Negative mg/dL LAB URINALYSIS - AUTOMATED METHOD 03/25/2025 2:20 PM [facility] Ketones, Urine Trace(A) Negative mg/dL LAB URINALYSIS - AUTOMATED METHOD 03/25/2025 2:20 PM [facility] Urobilinogen, Urine 1.0 0.2 - 1.0 mg/dL LAB URINALYSIS - AUTOMATED METHOD 03/25/2025 2:20 PM [facility] Bilirubin, Urine Negative Negative LAB URINALYSIS - AUTOMATED METHOD 03/25/2025 2:20 PM [facility] Blood, Urine Trace(A) Negative LAB URINALYSIS - AUTOMATED METHOD 03/25/2025 2:[address] [facility] RBC, Urine 7.3(H) 0 - 4 /HPF LAB URINALYSIS - AUTOMATED METHOD 03/25/2025 2:[address] [facility] WBC, Urine 4.5(H) 0 - 4 /HPF LAB URINALYSIS - AUTOMATED METHOD 03/25/2025 2:[address] [facility] Squamous Epithelial, Urine 75(H) 0 - 60 /LPF LAB URINALYSIS - AUTOMATED METHOD 03/25/2025 2:[address] [facility] Bacteria, Urine Negative Negative /HPF LAB URINALYSIS - AUTOMATED METHOD 03/25/2025 2:[address] [facility] Hyaline Casts, Urine 2.0 0 - 3 /LPF LAB URINALYSIS - AUTOMATED METHOD 03/25/2025 2:[address] [facility] Urine Urine specimen obtained by clean catch procedure / Unknown Non-blood Collection / Unknown 03/25/2025 1:55 PM EDT 03/25/2025 2:08 PM EDT Allan Tucker DO LAB URINE ORDERABLES Final Result [facility] [address] [place] [address], * [place] urine culture tube (03/25/2025 1:55 PM EDT) Only the most recent of2 resultswithin the time period is included. Extra Tube Hold for add-ons. 03/25/2025 4:[address] [facility] Comment:Auto resulted. Urine Urine specimen obtained by clean catch procedure / Unknown Non-blood Collection / Unknown 03/25/2025 1:55 PM EDT 03/25/2025 2:08 PM EDT Allan Tucker [facility] URINE ORDERABLES Final Result Performing Organization Address City/[facility]/ZIP Co de Phone Number [facility] [address] [place] [address], [place] [phone] * Culture urine (03/25/2025 1:55 PM EDT) Only the most recent of2 resultswithin the time period is included. Pathologist [facility] Culture, Urine 10,000-49,000 CFU/mL Mixed urogenital fabiana, no uropathogens present. Suggest repeat specimen if clinically indicated. 03/27/2025 9:[address] [facility] Urine Urine specimen obtained by clean catch procedure / Unknown Non-blood Collection / Unknown 03/25/2025 1:55 PM EDT 03/25/2025 2:20 PM EDT Allan Tucker [facility] MICROBIOLOGY - GENERAL ORDERABLES Final Result Performing Organization Address [facility] Co de Phone Number [facility] [address] [place] [address], [place] [phone] * (ABNORMAL) CBC auto differential (03/25/2025 1:53 PM EDT) Only the most recent of2 resultswithin the time period is included. Pathologist [facility] WBC 7.8 4.8 - 10.8 K/mcL LAB HEMETOLOGY METHOD 03/25/2025 2:[address] [facility] RBC 3.40(L) 3.80 - 4.80 M/mcL LAB HEMETOLOGY METHOD 03/25/2025 2:[address] [facility] Hemoglobin 8.0(L) 11.5 - 16.0 g/dL LAB HEMETOLOGY METHOD 03/25/2025 2:[address] [facility] Hematocrit 26.8(L) 35.0 - 47.0 % LAB HEMETOLOGY METHOD 03/25/2025 2:[address] [facility] MCV 79.5 79.0 - 98.0 FL LAB HEMETOLOGY METHOD 03/25[facility]25 2[facility] MCH 23.7(L) 27.0 - 32.0 pcg LAB HEMETOLOGY METHOD 03/25/2025 2:[facility] MCHC 29.9(L) 32.0 - 37.0 g/dL LAB HEMETOLOGY METHOD 03/25/2025 2:[facility] RDW 19.1(H) 11.0 - 15.0 % LAB HEMETOLOGY METHOD 03/25/2025 2:16 PM [facility] Platelets 494(H) 130 - 400 K/mcL LAB HEMETOLOGY METHOD 03/25/2025 2:16 [facility] MPV 10.4 7.0 - 11.0 FL LAB HEMETOLOGY METHOD 03/25/2025 2:16 PM [facility] NRBC 0.0 <1.0 % LAB HEMETOLOGY METHOD 03/25/2025 2:16 PM [facility] NRBC Absolute 0.00 <0.10 K/mcL LAB HEMETOLOGY METHOD 03/25/2025 2:16 PM [facility] Neutrophils Relative 76.8 % LAB HEMETOLOGY METHOD 03/25/2025 2:16 PM [facility] Lymphocytes Relative 15.9 % LAB HEMETOLOGY METHOD 03/25/2025 2:16 PM [facility] Monocytes Relative 5.5 % LAB HEMETOLOGY METHOD 03/25/2025 2:16 PM [facility] Eosinophils Relative 0.8 % LAB HEMETOLOGY METHOD 03/25/2025 2:16 PM [facility] Basophils Relative 0.5 % LAB HEMETOLOGY METHOD 03/25/2025 2:[address] [facility] Immature Granulocytes Relative 0.5 % LAB HEMETOLOGY METHOD 03/25/2025 2:[address] [facility] Neutrophils Absolute 5.96 1.50 - 7.00 K/mcL LAB HEMETOLOGY METHOD 03/25/2025 2:[address] [facility] Lymphocytes Absolute 1.23 1.00 - 5.00 K/mcL LAB HEMETOLOGY METHOD 03/25/2025 2:[address] [facility] Monocytes Absolute 0.43 0.20 - 1.00 K/mcL LAB HEMETOLOGY METHOD 03/25/2025 2:[address] [facility] Eosinophils Absolute 0.06 0.00 - 0.50 K/mcL LAB HEMETOLOGY METHOD 03/25/2025 2:[address] [facility] Basophils Absolute 0.04 0.00 - 0.20 K/mcL LAB HEMETOLOGY METHOD 03/25/2025 2:[address] [facility] Immature Granulocytes Absolute 0.04(H) 0.00 - 0.03 K/mcL LAB HEMETOLOGY METHOD 03/25/2025 2:[address] [facility] Blood Venous blood specimen / Unknown Venipuncture / Unknown 03/25/2025 1:53 PM EDT 03/25/2025 2:09 PM EDT us Allan Tucker DO LAB BLOOD ORDERABLES Final Result [facility] [address] [place] [address], * (ABNORMAL) Comprehensive metabolic panel (03/25/2025 1:53 PM EDT) Only the most recent of2 resultswithin the time period is included. Sodium 139 133 - 145 mmol/L LAB CHEMISTRY METHOD 03/25/2025 2:37 PM [facility] Potassium 4.3 3.5 - 5.5 mmol/L LAB CHEMISTRY METHOD 03/25/2025 2:37 PM [facility] Chloride 111(H) 96 - 110 mmol/L LAB CHEMISTRY METHOD 03/25/2025 2:37 PM [facility] CO2 23 21 - 32 mmol/L LAB CHEMISTRY METHOD 03/25/2025 2:37 PM [facility] Anion Gap 5 3 - 11 LAB CHEMISTRY METHOD 03/25/2025 2:37 PM [facility] Glucose 95 70 - 100 mg/dL LAB CHEMISTRY METHOD 03/25/2025 2:37 PM [facility] BUN 17 5 - 25 mg/dL LAB CHEMISTRY METHOD 03/25/2025 2:37 PM [facility] Creatinine 0.69 0.50 - 1.10 mg/dL LAB CHEMISTRY METHOD 03/25/2025 2:37 PM [facility] eGFR 96 >=60 mL/min/1. 73m2 LAB CHEMISTRY METHOD 03/25/2025 2:37 PM [facility] Comment:Calculation based on the Chronic Kidney Disease Epidemiology Collaboration (CKD-EPI) equation refit without adjustment for race. BUN/Creatinine Ratio 24.6 LAB CHEMISTRY METHOD 03/25/2025 2:37 PM [facility] Calcium 9.4 8.5 - 10.5 mg/dL LAB CHEMISTRY METHOD 03/25/2025 2:37 PM [facility] AST (SGOT) 22 10 - 42 unit/L LAB CHEMISTRY METHOD 03/25/2025 2:37 PM [facility] ALT (SGPT) 17 10 - 60 unit/L LAB CHEMISTRY METHOD 03/25/2025 2:37 PM [facility] Alkaline Phosphatase 102 42 - 121 unit/L LAB CHEMISTRY METHOD 03/25/2025 2:[address] [facility] Total Protein 7.6 6.0 - 8.0 g/dL LAB CHEMISTRY METHOD 03/25/2025 2:[address] [facility] Albumin 3.4 3.2 - 5.0 g/dL LAB CHEMISTRY METHOD 03/25/2025 2:[address] [facility] Total Bilirubin 0.3 0.0 - 1.4 mg/dL LAB CHEMISTRY METHOD 03/25/2025 2:[address] [facility] Blood Venous blood specimen / Unknown Venipuncture / Unknown 03/25/2025 1:53 PM EDT 03/25/2025 2:09 PM EDT us Allan Tucker DO LAB BLOOD ORDERABLES Final Result [facility] [address] [place] [address], from Last 3 Months Insurance [facility] MEDICARE Member Subscriber Plan / Payer (Ef fective 2023-Present) Name:Maura Bansal Relation to Subscriber:Self Name:Maura Bansal Payer ID:[id number] Group ID:[id number] Type:Not on file Address: [place] [facility] [place] [phone] Advance Directives Documents on File Type Date Recorded Patient District Associate Judge Expl anation Health Care Decision (hx) 05/24/2015 [...] currently active code status orders. Care Teams Electrical Subcontractor Relationship Specialty Start Date End Date Mary Jo Conteh MD [address] [place] [address] , [address] [place] [address] Physician Associ D/B/A: [facility] CARLOS MANUEL Zeng PCP - General Internal Medicine 05/28/18
== END 2025-03-30 09:48 | disposition home or self-care (01) ==
LOC: HO.HGS 09:25
PROVIDERS: PCP Internal Medicine; Visit Provider Surgery
DX: K25.9 Gastric ulcer, unspecified as acute or chronic, without hemorrhage or perforation (principal)
CPT/HCPCS: 99213

== ENCOUNTER → 2025-03-30 09:24 | Outpatient (BNVA) | payer OTHER, SELFPAY | PROVIDERS: PCP Internal Medicine; Visit Provider Surgery | DX: K25.9 Gastric ulcer, unspecified as acute or chronic, without hemorrhage or perforation (principal) | CPT/HCPCS: 99212 ==

== ENCOUNTER 2025-04-07 10:05 | Outpatient (AMB) | payer OTHER, SELFPAY ==
--- NOTE | 2025-04-07 10:46 | MHC.OFFVIS ---
Vital Signs 04/07/25 10:47 Height 5 ft 1 in Weight 149 lb 14.629 oz BMI 28.3 BP 118/66 Blood Pressure Location Lt brachial Position Sitting Pulse 70 Intake Visit Reasons: 1 yr follow up Intake Note: 1 year follow-up c/o palpitations Pharmacy Operations Specialist Required: Yes Pharmacy Operations Specialist Services: Pharmacy Operations Specialist Present Pharmacy Operations Specialist Name: phil Cadet Allergies phentermine Allergy (Intermediate, Verified 03/30/25 09:48) Palpitations Medication List - Last Reconciled 04/07/25 by Roby Handy MD acetaminophen 1,000 mg (2 x 500 mg) PO Q8H PRN albuterol sulfate 2.5 mg (3 mL) inhalation RQ4H WHILE AWAKE albuterol sulfate 90 mcg/actuation 2 puffs inhalation Q6H PRN ascorbic acid (vitamin C) (Vitamin C) 500 mg PO BID bismuth subsalicylate 2 tabs PO QID 14 days blood sugar diagnostic (FreeStyle Lite Strips) to test 2 to 3 times a day as directed blood-glucose meter (FreeStyle Lite Meter kit) As directed calcium citrate 500 mg PO BID cholecalciferol (vitamin D3) 1,250 mcg PO QWEEK esomeprazole magnesium 40 mg PO DAILY folic acid 1 mg PO DAILY 90 days hyoscyamine sulfate 0.125 mg PO BID-QID PRN incontinence pad, liner, disp As directed lancets (FreeStyle Lancets) Use 1 lancet once a day lancets (Pure Comfort Safety Lancets) As directed metoprolol succinate ER 25 mg PO DAILY 90 days metronidazole 500 mg PO TID 14 days nebulizers (AeroEclipse II Nebulizer) As directed nitrofurantoin monohyd/m-cryst 100 mg (Macrobid) 100 mg PO BID 7 days ondansetron 4 mg PO Q8H PRN pantoprazole 20 mg PO BID 2 weeks phenazopyridine (Pyridium) 100 mg PO TID PRN 5 days pravastatin 20 mg PO DAILY 90 days semaglutide (weight loss) (Wegovy) mg subcut sod sulf-pot chloride-mag sulf 1.479-0.188- 0.225 gram (Sutab) PO PER PKG DIR sodium,potassium,mag sulfates 17.5-3.13-1.6 gram (Suprep Bowel Prep Kit) DILUTE; drink 1/2 at 6-8 pm and half at 11 PM- 1AM sucralfate (Carafate) 1 g PO QIDACHS syringe with needle ([employer] Luer Lock Syringe with needle) As directed HPI Comments Details: Maura comes for follow-up. History was obtained with help of liquor clerk. Patient has not had any significant cardiac complaints. Denies any new palpitation but says very rarely she does get skipped heartbeat where she feels rapid heart rate and its slows down. She is taking all her medications. Denies any exertional chest pain or shortness of breath. No prolonged palpitation irregular heartbeat. No recent echocardiogram has been done. She takes all her medications regularly. 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 Asthma Paget's disease Fibromyalgia Nontoxic multinodular goiter Osteoarthritis HTN (hypertension) Surgical History Hx of hernia repair History of esophagogastroduodenoscopy (EGD) H/O colonoscopy History of excision of mass (08/21/23) History of removal of laparoscopic gastric banding device History of cystoscopy History of lobectomy of thyroid Mass of right parotid gland H/O laparoscopic adjustable gastric banding Hx of lithotripsy History of dilation and curettage History of delivery Hx of tonsillectomy Hx of gastric bypass Family History Mother Diabetes HTN (hypertension) Father Pancreatic cancer Diabetes HTN (hypertension) Maternal Grandmother Myocardial infarction Cancer Brother Pancreatic cancer Sister Uterine cancer Social History Household Members: Family Housing: House Are you a primary complex care nurse practitioner to a significant other at home: No Do you presently have visiting nurse or other home services: No Alcohol intake: never Patient Tobacco Use Status: Former Tobacco user Tobacco use type: Cigarette e-Cigarette/Vaping Use: Never Used Second Hand Smoke Exposure: No service: No Current occupational status: unemployed and disabled Sexual orientation: Straight/Heterosexual Gender identity: Female Cognitive needs: No Hearing needs: No Vision needs: Yes (glasses) Female Reproductive History Menstrual Age of Menarche: 10 Review of Systems Const Denies chills, Denies fatigue, Denies fever(s), Denies frequent falls, Denies weakness, Denies weight gain and Denies weight loss ENT Denies dizziness Card Denies chest pain, Denies leg edema, Denies lightheadedness, Denies palpitations, Denies dyspnea, Denies dyspnea on exertion, Denies orthopnea and Denies other (loss of consciousness) Resp Denies cough, Denies dyspnea and Denies dyspnea on exertion GI Denies hematochezia and Denies change in stool character Musc Denies abnormal gait, Denies muscle weakness, Denies numbness, Denies radiating pain into limb and Denies tingling Neuro Denies abnormal gait, Denies dizziness, Denies frequent falls, Denies numbness, Denies tingling and Denies weakness Endo Denies fatigue and Denies palpitations Physical Exam Vital Signs: Last Vital Signs Pulse 70 04/07/25 10:47 BP 118/66 04/07/25 10:47 BMI result Body Mass Index 28.3 Const General: cooperative, healthy appearing, comfortable and no acute distress Orientation/consciousness: patient oriented x3 Neck Neck: Yes normal visual inspection Resp Effort & Inspection: normal respiratory effort Auscultation: clear to auscultation bilaterally, no crackles, no rales, no rhonchi and no wheezes Cardio Jugular venous distension: no JVD Rate: regular rate Rhythm: regular rhythm Heart sounds: S1 normal heart sound present, S2 normal heart sound present, no murmurs and no rubs Neuro General: patient oriented x3 Extrem General: Yes normal to inspection Psych Appearance: grossly normal Mental Status: mental status grossly normal Speech and movement: Normal speech and movement present Office Procedures EKG Details: EKG shows normal sinus rhythm with isolated PVC with moderate voltage criteria for LVH with nonspecific T wave changes [id number], Complete Assessment & Plan Assessment & Plan (1) PVCs (premature ventricular contractions): Code(s): I49.3 - Ventricular premature depolarization Category: Medical Plan: PVCs still present but mildly symptomatic. She is doing well on metoprolol therapy. Continue the same. Stress mitigation strategies. Avoidance stimulants was discussed. No change in therapy. (2) Enlarged thoracic aorta: Code(s): I77.89 - Other specified disorders of arteries and arterioles Category: Medical Plan: Mildly enlarged thoracic aorta. Will obtain echocardiogram near future to assess any progression. Continue aggressive blood pressure control. If ascending aorta is stable will review and pursue echocardiogram in 2 years time. (3) HTN (hypertension): Code(s): I10 - Essential (primary) hypertension Category: Medical Plan: Hypertension which is currently well optimized advised to monitor blood pressure and maintain a log. Goal blood pressure less than 130/84. Low-salt diet was discussed. Continue aggressive management of sugars with goal hemoglobin A1c less than 7%. Target goal LDL less than 70 mg/dL. Encouraged to maintain activity level as tolerated. Will follow up in the clinic in 2 years time, sooner p.r.n.. Thank you for allowing me to partake in her care Orders: Orders CA echo transthoracic complete Today I77.89 - Other specified disorders of arteries and arterioles Coding Level of Care Code Est Pt Level 4 (50418) Complex EM visit Add On G2211 Diagnoses PVCs (premature ventricular contractions) I49.3 Enlarged thoracic aorta I77.89 HTN (hypertension) I10 CPT Codes EKG - CPT: 64776-[id number], Complete ([id number])
[2025-04-07 10:47] VITALS: BP 118/66; PULSE 70; BMI 28.3
--- OUTSIDE RECORDS SUMMARY | 2025-04-07 11:33 | XMS_ITS | Data Portability ---
Author Organization [place] - [facility], Allergy Address [address] [address] Assessment Encounter Date Assessment Date Assessment LastModified [...] recorded. Imaging MRI, neck, w/wo contrast - salvadorean speaker, hx of right parotidecto my for [...] ast No observ ation record ed. [email or web address] [address], [address], 10/09/2024 09:09:01 Result Notes None recorded. Problems Name Problem SNOMED Code Status Onset Date Resolution Date Notes Provider Name and Address Organization Details Recorded Time Otalgia of right ear 3634026047 Active 2017 Otalgia, right ear; Note: Date Diagnose d: 8 4:52 PM (H92.01) Not Available [facility] 4 02:29:23 Referred otalgia 42738404 Active 2014 Otalgia secondar y to TMJ; Note: Date Diagnose d: 5 3:03 PM (388.72) Not Available [facility] 4 02:29:38 Malignan t tumor of parotid gland 112296962 Completed 201806/19/2024 Malignan t neoplasm of parotid gland; Location : right No te: Date Diagnose d: 9 11:40 AM (C07) Not Available [facility] 4 02:29:33 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 Procedures [...] 09/05/2024 MRI, neck, w/wo contrast completed [email or web address] [facility] [address] [place], [address], 10/09/2024 09:09:01 Procedure Notes None recorded. Medical [...] Updated DateTime 07/08/2024 152.4 cm 29.3 kg/m2 42603.86 g [email or web address] Odonnell [place] - [facility] 07/08/2024 13:41:16 Social History None recorded. Functional Status None recorded. Mental Status None recorded. Family History Nothing Reported. Medical History No medical history recorded. Gynecological HistoryNo gynecological history recorded. Obstetrics History GPAL:G 0 P 0 0 0 0 Past Encounters Encounter ID Performer Location Encounter Start Date Encounter Closed Date Diagnosis/Indication Diagnosis SNOMED-CT Code Diagnosis ICD10 Code Diagnosis Note [id number] CHRIS WOO MD [facility] [address] [address] 07/08/2024 13:31:55 07/08/2024 14:01:53 History of malignant neoplasm of parotid gland 3903270844 03163 Z85.818 Health Concerns Section Related Observation LastModified by Organization Detai ls LastModified Time None Recorded Concern Status LastModified by Organization Details LastModified Time None Recorded Advance Directives Directive None Recorded Payers Insurance Date Sequence Insurance Name Policy Number Policy Madrigal Covered Member ID Madrigal Member ID Guarantor Name 08/03/2024 1 [facility] Maura Travis [id number] Maura Travis 07/15/2024 1 [facility] - DOS ON OR AFTER 2023 - MEDICARE ADVANTAGE [place] (MEDICARE REPLACEMENT/AD VANTAGE - PPO) Maura Travis [id number] Maura Travis 08/03/2024 1 [facility] - DOS ON OR AFTER 2023 - ONE CARE (MEDICARE REPLACEMENT/AD VANTAGE - HMO) Maura Travis [id number] Maura Travis Notes Date Note Type Note Provider Name and Address Organization Details Recorded Time 07/08/2024 text/html salvadorean - IPADhx of right deep lobe parotid [...] for a follicular nodule CHRIS WOO MD [address] [place] [address], [phone] [place] - [facility] 07/08/2024 14:01:47 OBGyn Episode No OBEpisode recorded.
--- OUTSIDE RECORDS SUMMARY | 2025-04-07 11:33 | XMS_ITS | Clinical Summary ---
Author Organization 175 [facility] Address [address] [place] [address] Phone Care Team Providers Care Forge Operator Name Role Phone Mary Jo Conteh MD Primary Care Provider [phone] Allergies No known active allergies Medications albuterol [...] 1 (one) time each day. Active ascorbic xajx-rupsieit-jk n 1,000 mg powder effervescent in packet [...] EDT - 03/25/2025 9:19 PM EDT Emergency [facility] Emergency [address] [place] [phone] Chronic idiopathic constipation (Primary Dx) Discharge Disposition: Home or Self Care 02/05/2025 Telephone Bariatric Surgery - [place] [address] [facility] [address] [place] [address] Griffin Loya MD Advice Only 01/26/2025 6:31 PM EDT - 01/26/2025 10:56 PM EDT Emergency [facility] Emergency [address] [place] [phone] Chaz Jose MD Urinary tract infection without [...] this topic Medical Devices Implanted Type Area Rehabilitator Device Identifier Shelf Expiration Date Model / Serial / Lot Mesh Ventralex St 1.7in Sm [place] W/Strap - Sn/A - [id number] Implanted:Qty: 1 on 12/09/2024 by Griffin Loya MD at [facility] Surgical Mesh Sling Implants N/A: Umbilical CR BARD - DAVOL DIV [id number] / N/A / N/A Procedures Procedure Name [...] Reji Stephenson MD on 03/25/2025 20:56:[address] PROCEDURES Final Resul t * (ABNORMAL) Urinalysis with reflex microscopic and culture (03/25/2025 1:55 PM EDT) Only the most recent of2 resultswithin the time period is included. Specific [place] Urine 1.023 1.003 - 1.030 LAB URINALYSIS - AUTOMATED METHOD 03/25/2025 2:20 PM [facility] pH, Urine 6.0 5.0 - 8.0 pH LAB URINALYSIS - AUTOMATED METHOD 03/25/2025 2:20 PM [facility] Leukocytes, Urine Small(A) Negative LAB URINALYSIS - AUTOMATED METHOD 03/25/2025 2:20 PM [facility] Nitrite, Urine Negative Negative LAB URINALYSIS - AUTOMATED METHOD 03/25/2025 2:20 PM [facility] Protein, Urine 30(A) <=Trace mg/dL LAB URINALYSIS - AUTOMATED METHOD 03/25/2025 2:20 PM [facility] Glucose, Urine Negative Negative mg/dL LAB URINALYSIS - AUTOMATED METHOD 03/25/2025 2:20 PM [facility] Ketones, Urine Trace(A) Negative mg/dL LAB URINALYSIS - AUTOMATED METHOD 03/25/2025 2:20 PM [facility] Urobilinogen, Urine 1.0 0.2 - 1.0 mg/dL LAB URINALYSIS - AUTOMATED METHOD 03/25/2025 2:20 PM [facility] Bilirubin, Urine Negative Negative LAB URINALYSIS - AUTOMATED METHOD 03/25/2025 2:20 PM [facility] Blood, Urine Trace(A) Negative LAB URINALYSIS - AUTOMATED METHOD 03/25/2025 2:20 PM EDT [facility] RBC, Urine 7.3(H) 0 - 4 /HPF LAB URINALYSIS - AUTOMATED METHOD 03/25/2025 2:20 PM EDT [facility] WBC, Urine 4.5(H) 0 - 4 /HPF LAB URINALYSIS - AUTOMATED METHOD 03/25/2025 2:20 PM EDT [facility] Squamous Epithelial, Urine 75(H) 0 - 60 /LPF LAB URINALYSIS - AUTOMATED METHOD 03/25/2025 2:20 PM EDT [facility] Bacteria, Urine Negative Negative /HPF LAB URINALYSIS - AUTOMATED METHOD 03/25/2025 2:20 PM EDT [facility] Hyaline Casts, Urine 2.0 0 - 3 /LPF LAB URINALYSIS - AUTOMATED METHOD 03/25/2025 2:20 PM EDT [facility] Urine Urine specimen obtained by clean catch procedure / Unknown Non-blood Collection / Unknown 03/25/2025 1:55 PM EDT 03/25/2025 2:08 PM EDT Allan Tucker DO LAB URINE ORDERABLES Final Result [facility] [address] [place] [address], * [place] urine culture tube (03/25/2025 1:55 PM EDT) Only the most recent of2 resultswithin the time period is included. Extra Tube Hold for add-ons. 03/25/2025 4:02 PM EDT [facility] Comment:Auto resulted. Urine Urine specimen obtained by clean catch procedure / Unknown Non-blood Collection / Unknown 03/25/2025 1:55 PM EDT 03/25/2025 2:08 PM EDT Allan Tucker [facility] URINE ORDERABLES Final Result Performing Organization Address City/[facility]/ZIP Co de Phone Number [facility] [address] [place] [address], [place] [phone] * Culture urine (03/25/2025 1:55 PM EDT) Only the most recent of2 resultswithin the time period is included. Pathologist [facility] Culture, Urine 10,000-49,000 CFU/mL Mixed urogenital fabiana, no uropathogens present. Suggest repeat specimen if clinically indicated. 03/27/2025 9:28 AM EDT [facility] Urine Urine specimen obtained by clean catch procedure / Unknown Non-blood Collection / Unknown 03/25/2025 1:55 PM EDT 03/25/2025 2:20 PM EDT Allan Tucker [facility] MICROBIOLOGY - GENERAL ORDERABLES Final Result Performing Organization Address [facility] Co de Phone Number [facility] [address] [place] [address], [place] [phone] * (ABNORMAL) CBC auto differential (03/25/2025 1:53 PM EDT) Only the most recent of2 resultswithin the time period is included. Pathologist [facility] WBC 7.8 4.8 - 10.8 K/mcL LAB HEMETOLOGY METHOD 03/25/2025 2:16 PM EDT [facility] RBC 3.40(L) 3.80 - 4.80 M/mcL LAB HEMETOLOGY METHOD 03/25/2025 2:16 PM EDT [facility] Hemoglobin 8.0(L) 11.5 - 16.0 g/dL LAB HEMETOLOGY METHOD 03/25/2025 2:16 PM EDT [facility] Hematocrit 26.8(L) 35.0 - 47.0 % LAB HEMETOLOGY METHOD 03/25/2025 2:16 PM EDT [facility] MCV 79.5 79.0 - 98.0 FL LAB HEMETOLOGY METHOD 03/25/2025 2:16 [facility] MCH 23.7(L) 27.0 - 32.0 pcg LAB HEMETOLOGY METHOD 03/25/2025 2:16 [facility] MCHC 29.9(L) 32.0 - 37.0 g/dL LAB HEMETOLOGY METHOD 03/25/2025 2:16 PM [facility] RDW 19.1(H) 11.0 - 15.0 % LAB HEMETOLOGY METHOD 03/25/2025 2:16 PM [facility] Platelets 494(H) 130 - 400 K/mcL LAB HEMETOLOGY METHOD 03/25/2025 2:16 PM [facility] MPV 10.4 7.0 - 11.0 FL LAB HEMETOLOGY METHOD 03/25/2025 2:16 [facility] NRBC 0.0 <1.0 % LAB HEMETOLOGY METHOD 03/25/2025 2:16 PM [facility] NRBC Absolute 0.00 <0.10 K/mcL LAB HEMETOLOGY METHOD 03/25/2025 2:16 PM [facility] Neutrophils Relative 76.8 % LAB HEMETOLOGY METHOD 03/25/2025 2:16 PM [facility] Lymphocytes Relative 15.9 % LAB HEMETOLOGY METHOD 03/25/2025 2:16 PM [facility] Monocytes Relative 5.5 % LAB HEMETOLOGY METHOD 03/25/2025 2:16 PM [facility] Eosinophils Relative 0.8 % LAB HEMETOLOGY METHOD 03/25/2025 2:16 PM [facility] Basophils Relative 0.5 % LAB HEMETOLOGY METHOD 03/25/2025 2:16 PM EDT [facility] Immature Granulocytes Relative 0.5 % LAB HEMETOLOGY METHOD 03/25/2025 2:16 PM EDT [facility] Neutrophils Absolute 5.96 1.50 - 7.00 K/mcL LAB HEMETOLOGY METHOD 03/25/2025 2:16 PM EDT [facility] Lymphocytes Absolute 1.23 1.00 - 5.00 K/mcL LAB HEMETOLOGY METHOD 03/25/2025 2:16 PM EDT [facility] Monocytes Absolute 0.43 0.20 - 1.00 K/mcL LAB HEMETOLOGY METHOD 03/25/2025 2:16 PM EDT [facility] Eosinophils Absolute 0.06 0.00 - 0.50 K/mcL LAB HEMETOLOGY METHOD 03/25/2025 2:16 PM EDT [facility] Basophils Absolute 0.04 0.00 - 0.20 K/mcL LAB HEMETOLOGY METHOD 03/25/2025 2:16 PM EDT [facility] Immature Granulocytes Absolute 0.04(H) 0.00 - 0.03 K/mcL LAB HEMETOLOGY METHOD 03/25/2025 2:16 PM EDT [facility] Blood Venous blood specimen / Unknown Venipuncture / Unknown 03/25/2025 1:53 PM EDT 03/25/2025 2:09 PM EDT us Allan Tucker DO LAB BLOOD ORDERABLES Final Result [facility] [address] [place] [address], * (ABNORMAL) Comprehensive metabolic panel (03/25/2025 1:53 PM EDT) Only the most recent of2 resultswithin the time period is included. Sodium 139 133 - 145 mmol/L LAB CHEMISTRY METHOD 03/25/2025 2:37 PM [facility] Potassium 4.3 3.5 - 5.5 mmol/L LAB CHEMISTRY METHOD 03/25/2025 2:37 PM [facility] Chloride 111(H) 96 - 110 mmol/L LAB CHEMISTRY METHOD 03/25/2025 2:37 PM [facility] CO2 23 21 - 32 mmol/L LAB CHEMISTRY METHOD 03/25/2025 2:37 PM [facility] Anion Gap 5 3 - 11 LAB CHEMISTRY METHOD 03/25/2025 2:37 PM [facility] Glucose 95 70 - 100 mg/dL LAB CHEMISTRY METHOD 03/25/2025 2:37 PM [facility] BUN 17 5 - 25 mg/dL LAB CHEMISTRY METHOD 03/25/2025 2:37 PM [facility] Creatinine 0.69 0.50 - 1.10 mg/dL LAB CHEMISTRY METHOD 03/25/2025 2:37 PM [facility] eGFR 96 >=60 mL/min/1. 73m2 LAB CHEMISTRY METHOD 03/25/2025 2:37 PM [facility] Comment:Calculation based on the Chronic Kidney Disease Epidemiology Collaboration (CKD-EPI) equation refit without adjustment for race. BUN/Creatinine Ratio 24.6 LAB CHEMISTRY METHOD 03/25/2025 2:37 PM [facility] Calcium 9.4 8.5 - 10.5 mg/dL LAB CHEMISTRY METHOD 03/25/2025 2:37 PM [facility] AST (SGOT) 22 10 - 42 unit/L LAB CHEMISTRY METHOD 03/25/2025 2:37 PM [facility] ALT (SGPT) 17 10 - 60 unit/L LAB CHEMISTRY METHOD 03/25/2025 2:37 PM [facility] Alkaline Phosphatase 102 42 - 121 unit/L LAB CHEMISTRY METHOD 03/25/2025 2:37 PM EDT [facility] Total Protein 7.6 6.0 - 8.0 g/dL LAB CHEMISTRY METHOD 03/25/2025 2:37 PM EDT [facility] Albumin 3.4 3.2 - 5.0 g/dL LAB CHEMISTRY METHOD 03/25/2025 2:37 PM EDT [facility] Total Bilirubin 0.3 0.0 - 1.4 mg/dL LAB CHEMISTRY METHOD 03/25/2025 2:37 PM EDT [facility] Blood Venous blood specimen / Unknown Venipuncture / Unknown 03/25/2025 1:53 PM EDT 03/25/2025 2:09 PM EDT us Allan Tucker DO LAB BLOOD ORDERABLES Final Result [facility] [address] [place] [address], from Last 3 Months Insurance [facility] MEDIC[facility] Member Subscriber Plan / Payer (Ef fective 2023-Present) Name:Maura Bansal Relation to Subscriber:Self Name:Maura Bansal Payer ID:[id number] Group ID:[id number] Type:Not on file Address: [place] [facility] [place] [phone] Advance Directives Documents on File Type Date Recorded Patient Thread Clipper Expl anation Health Care Decision (hx) 05/24/2015 [...] currently active code status orders. Care Teams Forge Operator Relationship Specialty Start Date End Date Mary Jo Conteh MD [address] [place] [address] , [address] [place] [address] Physician Associ D/B/A: [facility] CARLOS MANUEL Zeng PCP - General Internal Medicine 05/28/18
== END 2025-04-07 11:09 | disposition home or self-care (01) ==
LOC: HO.HCS 10:05
PROVIDERS: PCP Internal Medicine; Visit Provider Internal Medicine Cardiovascular Disease
DX: I49.3 Ventricular premature depolarization (principal); I77.89 Other specified disorders of arteries and arterioles; I10 Essential (primary) hypertension
CPT/HCPCS: 93010; 99214; G2211

== ENCOUNTER → 2025-04-07 10:05 | Outpatient (BNVA) | payer OTHER, SELFPAY | PROVIDERS: PCP Internal Medicine; Visit Provider Internal Medicine Cardiovascular Disease | DX: I49.3 Ventricular premature depolarization (principal); I77.89 Other specified disorders of arteries and arterioles; I10 Essential (primary) hypertension; R94.31 Abnormal electrocardiogram [ECG] [EKG]; I45.81 Long QT syndrome | CPT/HCPCS: 93005; 99212 ==

== ENCOUNTER → 2025-04-21 09:45 | Outpatient (BNVA) | payer OTHER, SELFPAY | PROVIDERS: PCP Internal Medicine; Visit Provider Urology | DX: N30.10 Interstitial cystitis (chronic) without hematuria (principal) | CPT/HCPCS: 51700 ==

== ENCOUNTER 2025-04-26 09:58 | Outpatient (AMB) | payer OTHER, SELFPAY ==
--- NOTE | 2025-04-26 10:02 | MHC.OFFVIS ---
Vital Signs 04/26/25 10:05 Height 5 ft 1 in Weight 145 lb 8.081 oz BMI 27.5 BP 134/71 Blood Pressure Location Lt brachial Position Sitting Pulse 73 Intake Visit Reasons: s/p double Intake Note: Maura presents in the office as a follow up for her EGD and COLO. CC: States that she is here today for results - no concerns at this time. Sports Official Required: Yes Sports Official Name: [id number] Allergies phentermine Allergy (Intermediate, Verified 03/30/25 09:48) Palpitations HPI HPI s/p double: Details: 64 y/o F w/ , HTN, HLD,hx of gastric lap band with conversion to RYGB, hx of nephrolithiasis with lithotripsy 2019, mild intermittent asthma, fibromyalgia, osteoarthritis, Paget's disease, and parotid gland mass who I am seeing for f/u RECAP: Recent admission for acute pyelonephritis, sepsis transfer to [place] in October- for jejuno jejunal intussusception also has hx of ANEUDY and seeing Dr. Georges HGb has been chronically stable at around 10 g/dl EGD/COLO: 04/10 Endoscopy Findings: esophagitis retained suture Colonoscopy Findings: colon polyp internal hemorrhoids Tubular adenoma--path IMAGING: CT 11/09 hepatomegaly and prominent CBD ?jejuno jejunal intussussception MRCP 06/10-- nml EGD/[place]: 03/17/25: Endoscopy Findings: anastomotic ulcer hiatal hernia Colonoscopy Findings: colon polyps internal hemorrhoids Path: pos for H pylori inflammatory polyps given quadruple therapy INTERIM: she still has epigastric discomfort, but better, she finished quadruple therapy about 2-3 weeks ago she has malaise been taking PPI and carafate but carafate disturbs her bowel habits no n/v EXAM: GENERAL: The patient is well developed and nontoxic. VITAL SIGNS:see workflow HEENT: Nonicteric sclerae, PERRLA, EOMI. Oropharynx clear. Moist mucous membranes. Conjunctivae appear well perfused. No thyroid mass. CHEST: Chest wall is nontender. HEART: Regular rate and rhythm without murmurs. LUNGS: Clear to auscultation bilaterally. ABDOMEN: Soft, positive bowel sounds, mild tender epigastrium no organomegaly.no flank tenderness SKIN: No rash, no excessive bruising, petechiae, or purpura. NEUROLOGIC: Cranial nerves II-XII intact without motor/sensory deficit. 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 Asthma Paget's disease Fibromyalgia Nontoxic multinodular goiter Osteoarthritis HTN (hypertension) Surgical History Hx of hernia repair History of esophagogastroduodenoscopy (EGD) H/O colonoscopy History of excision of mass (08/21/23) History of removal of laparoscopic gastric banding device History of cystoscopy History of lobectomy of thyroid Mass of right parotid gland H/O laparoscopic adjustable gastric banding Hx of lithotripsy History of dilation and curettage History of delivery Hx of tonsillectomy Hx of gastric bypass Family History Mother Diabetes HTN (hypertension) Father Pancreatic cancer Diabetes HTN (hypertension) Maternal Grandmother Myocardial infarction Cancer Brother Pancreatic cancer Sister Uterine cancer Social History Household Members: Family Housing: House Are you a primary child care team lead to a significant other at home: No Do you presently have visiting nurse or other home services: No Alcohol intake: never Patient Tobacco Use Status: Former Tobacco user Tobacco use type: Cigarette e-Cigarette/Vaping Use: Never Used Second Hand Smoke Exposure: No service: No Current occupational status: unemployed and disabled Sexual orientation: Straight/Heterosexual Gender identity: Female Cognitive needs: No Hearing needs: No Vision needs: Yes (glasses) Female Reproductive History Menstrual Age of Menarche: 10 Physical Exam Vital Signs: Last Vital Signs Pulse 73 04/26/25 10:05 BP 134/71 04/26/25 10:05 BMI result Body Mass Index 27.5 Assessment & Plan Assessment & Plan (1) Gastric ulcer: Code(s): K25.9 - Gastric ulcer, unspecified as acute or chronic, without hemorrhage or perforation Category: Medical Plan: see above Coding Level of Care Code Est Pt Level 3 (54625) Diagnoses Gastric ulcer K25.9
[2025-04-26 10:05] VITALS: BP 134/71; PULSE 73; BMI 27.5
--- OUTSIDE RECORDS SUMMARY | 2025-04-26 10:56 | XMS_ITS | Data Portability ---
Author Organization [place] - [facility], Allergy Address [address] [address] Assessment Encounter Date Assessment Date Assessment LastModified [...] recorded. Imaging MRI, neck, w/wo contrast - belarusian speaker, hx of right parotidecto my for [...] ast No observ ation record ed. [email or web address] [address], [address], 10/09/2024 09:09:01 Result Notes None recorded. Problems Name Problem SNOMED Code Status Onset Date Resolution Date Notes Provider Name and Address Organization Details Recorded Time Otalgia of right ear 6774421318 Active 2017 Otalgia, right ear; Note: Date Diagnose d: 8 4:52 PM (H92.01) Not Available [facility] 4 02:29:23 Referred otalgia 72010528 Active 2014 Otalgia secondar y to TMJ; Note: Date Diagnose d: 5 3:03 PM (388.72) Not Available [facility] 4 02:29:38 Malignan t tumor of parotid gland 813989337 Completed 201806/19/2024 Malignan t neoplasm of parotid gland; Location : right No te: Date Diagnose d: 9 11:40 AM (C07) Not Available [facility] 4 02:29:33 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 Medical Equipment None Reported. [...] Updated DateTime 07/08/2024 152.4 cm 29.3 kg/m2 54773.86 g Marc Odonnell [place] - [facility] 07/08/2024 13:41:16 Social History None recorded. Functional Status None recorded. Mental Status None recorded. Family History Nothing Reported. Medical History No medical history recorded. Gynecological HistoryNo gynecological history recorded. Obstetrics History GPAL:G 0 P 0 0 0 0 Past Encounters Encounter ID Performer Location Encounter Start Date Encounter Closed Date Diagnosis/Indication Diagnosis SNOMED-CT Code Diagnosis ICD10 Code Diagnosis Note [id number] CHRIS WOO MD [facility] [address] [address] 07/08/2024 13:31:55 07/08/2024 14:01:53 History of malignant neoplasm of parotid gland 9901479528 43077 Z85.818 Health Concerns Section Related Observation LastModified by Organization Detai ls LastModified Time None Recorded Concern Status LastModified by Organization Details LastModified Time None Recorded Advance Directives Directive None Recorded Payers Insurance Date Sequence Insurance Name Policy Number Policy Madrigal Covered Member ID Madrigal Member ID Guarantor Name 08/03/2024 1 [facility] [employer] SERVICES - [facility] ([facility]) Maura Travis [id number] Maura Travis 07/15/2024 1 [facility] - DOS ON OR AFTER 2023 - MEDICARE AD[place]ANTAGE [place] (MEDICARE REPLACEMENT/AD VANTAGE - PPO) Maura Travis [id number] Maura Travis 08/03/2024 1 [facility] - DOS ON OR AFTER 2023 - ONE CARE (MEDICARE REPLACEMENT/AD VANTAGE - HMO) Maura Travis [id number] Maura Travis Notes Date Note Type Note Provider Name and Address Organization Details Recorded Time 07/08/2024 text/html belarusian - IPADhx of right deep lobe parotid [...] a follicular nodule CHRIS WOO MD [address] [place] [address], [place], [address], [facility] - [facility] 07/08/2024 14:01:47 OBGyn Episode No OBEpisode recorded.
== END 2025-04-26 10:59 | disposition home or self-care (01) ==
LOC: HO.HGI 09:59
PROVIDERS: PCP Internal Medicine; Visit Provider Internal Medicine Gastroenterology
DX: K25.9 Gastric ulcer, unspecified as acute or chronic, without hemorrhage or perforation (principal)
CPT/HCPCS: 99213

== ENCOUNTER → 2025-04-26 09:58 | Outpatient (BNVA) | payer OTHER, SELFPAY | PROVIDERS: PCP Internal Medicine; Visit Provider Internal Medicine Gastroenterology | DX: K63.5 Polyp of colon (principal); K25.9 Gastric ulcer, unspecified as acute or chronic, without hemorrhage or perforation | CPT/HCPCS: 99212 ==

== ENCOUNTER → 2025-05-11 10:45 | Outpatient (REF) | payer OTHER, SELFPAY ==
--- NOTE | 2025-05-11 10:47 | CA_ITS ---
Transthoracic Echocardiogram Patient (Last, First, Middle): Maura Travis M Gender: Female Date of : 1960 Age: 64 Procedure Date: 05/11/2025 Procedure Type: Transthoracic Echocardiogram Location: OP Height: 152.4 cm Weight: 66.68 kg BSA: 1.64 m2 Heart Rate: bpm BP: 130 / 82 mmHg Blood Collector: TO Referring MD: Roby Handy MD Symptoms: I77.89 - Other specified disorders of arteries and arterioles Study Quality: Adequate ECG Rhythm: Sinus Conclusions: - The left ventricular systolic function is normal. The calculated ejection fraction is 58% by biplane method. - No obvious valvular pathology seen on this study. - There is mild dilatation of the ascending aorta measuring 4.20 cm. - Small plaque is seen in the sino tubular ridge. Findings Left Ventricle Normal left ventricular cavity size. The left ventricular systolic function is normal. The calculated ejection fraction is 58% by biplane method. There is no evidence of regional wall motion abnormalities. Evidence suggests grade I (mild) diastolic dysfunction. There is mild septal asymmetric hypertrophy. Right Ventricle Normal right ventricular cavity size and systolic function. Atria The left atrium is mildly dilated. The right atrium is normal in size. Aortic Valve There is a normal trileaflet aortic valve. There is mild calcification of the aortic valve. There is no aortic valve stenosis. There is trace (trivial) aortic valve regurgitation. Mitral Valve There is mild mitral annular calcification. There is trace mitral valve regurgitation. There is no mitral valve stenosis. Pulmonic Valve There is trace pulmonic valve regurgitation. Tricuspid Valve There is mild tricuspid valve regurgitation. There is no evidence of pulmonary hypertension. Great Vessels There is mild dilatation of the ascending aorta measuring 4.20 cm. Small plaque is seen in the sino tubular ridge. Venous The inferior vena cava is normal in size and collapses greater than 50% with inspiration. Pericardium/Pleural There is a trivial pericardial effusion. Prior Study Comparison Changes noted compared to prior study dated: 04/03/2024. Ascending aortic dimension slightly larger than last study, but closer to study from 2022. Changes may be technical. Recommendations, Care & Conclusions No obvious valvular pathology seen on this study. Measurements 2D Linear Measurements IVSd: 1.10 0.6-0.9/0.6-1.0 cm LVIDd: 4.65 3.9-5.3/4.2-5.9 cm LVIDd Index: 2.84 2.4-3.2/2.2-3.1 cm/m2 LVIDs: 3.45 2.0-3.6 cm LVPWd: 0.79 0.7-1.1 cm LA Diam: 2.90 2.7-3.8/3.0-4.0 cm LAIDs Index: 1.77 1.5-2.3 cm/m2 LV Mass: 186.22 67-162/88-224 g LV Mass Index: 113.55 43-95/49-115 g/m2 LVOT Diam: 2.20 3.0+(-)1.3 cm 2D Systolic Function EF 4C: 59.20 >55% EF 2C: 57.10 >55% EF BiP: 58.00 >55% Mitral Valve MV Pk E: 0.55 MV PK A: 0.85 MV Decel Time: 242.00 E/A: 0.60 E'Lateral: 7.29 E'Medial: 4.24 E/E' Med: 12.90 E/E' Lat: 7.50 PHT: 71.00 MVA PHT: 3.10 Decel Barnes: 2.27 Aortic Valve AoV Pk Adam: 1.62 AoV Mn Adam: 1.09 AoV VTI: 0.34 AoV Pk Grad: 10.00 Aov Mn Grad: 5.00 MATTHEW Cont.VTI: 2.55 LVOT LVOT Pk Adam: 1.01 LVOT Mn Adam: 0.66 LVOT VTI: 0.23 LVOT Pk Grad: 4.00 LVOT Mn Grad: 2.00 LVOT Diam: 2.20 LVOT Area: 3.80 Diastolic Function MV Pk E: 0.55 MV Pk A: 0.85 E/A: 0.60 E'Medial: 4.24 E/E' Med: 12.90 E' Laterial: 7.29 E/E' Lat: 7.50 Right Ventricle TAPSE (mm): 22.60 TVS' Adam: 12.00 Tricuspid Valve TR Pk Adam: 2.05 TR Pk Grad: 17.00 RA Press: 3.00 RVSP: 20.00 Great Vessels Aorta Sinus of Valsalva: 3.23 2.0-3.5 cm Ao Asc: 4.20 2.1-3.4 cm Updated in Other Vendor System with Status of Final Aaron Tamez MD electronically signed on 05/12/2025 10:01:42 AM with status of Final
--- OUTSIDE RECORDS SUMMARY | 2025-05-11 12:04 | XMS_ITS | Data Portability ---
Author Organization [place] - [facility], Allergy Address [address] [address] Assessment Encounter Date Assessment Date Assessment LastModified [...] recorded. Imaging MRI, neck, w/wo contrast - central african speaker, hx of right parotidecto my for malignant tumor 2013. now with right facial pain concern for recurrence 2023 024 LOUISE Not available 10:06:34 Medication Orders None recorded. Patient TargetsNo targets recorded. Patient InstructionsNo instructions recorded. Reason for Referral None Reported. Results Created Date Observation Date Name Description Value Unit Range Abnormal Flag Note LastModifiedBy Organization Detail LastModifiedTime 07/08/20 24 03/23/2019 imagi ng/di agnos tic [...] ast No observ ation record ed. [email or web address] [address], [address], 10/09/2024 09:09:01 Result Notes None recorded. 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; Note: Date Diagnose d: 5 3:03 PM (388.72) Not Available [facility] 4 02:29:38 Malignan t tumor of parotid gland 875758519 Completed 201806/19/2024 Malignan t neoplasm of parotid gland; Location : right No te: Date Diagnose d: 9 11:40 AM (C07) Not Available [facility] 4 02:29:33 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,[place] [address], [place], [address] , [facility] - [facility] 4 13:58:22 Problem Notes None recorded. [...] Updated DateTime 07/08/2024 152.4 cm 29.3 kg/m2 45604.86 g Marc Odonnell [place] - [facility] 07/08/2024 13:41:16 Social History None recorded. Functional Status None recorded. Mental Status None recorded. Family History Nothing Reported. Medical History No medical history recorded. Gynecological HistoryNo gynecological history recorded. Obstetrics History GPAL:G 0 P 0 0 0 0 Past Encounters Encounter ID Performer Location Encounter Start Date Encounter Closed Date Diagnosis/Indication Diagnosis SNOMED-CT Code Diagnosis ICD10 Code Diagnosis Note [id number] CHRIS WOO MD [facility] [address] [address] 07/08/2024 13:31:55 07/08/2024 14:01:53 History of malignant neoplasm of parotid gland [id number] 04080 Z85.818 Health Concerns Section Related Observation LastModified by Organization Detai ls LastModified Time None Recorded Concern Status LastModified by Organization Details LastModified Time None Recorded Advance Directives Directive None Recorded Payers Insurance Date Sequence Insurance Name Policy Number Policy Madrigal Covered Member ID Madrigal Member ID Guarantor Name 08/03/2024 1 [facility] SERVICES - [facility] ([facility] HMO) Maura Travis [id number] Maura Travis 07/15/2024 1 [facility] - DOS ON OR AFTER 2023 - MEDICARE [place]ANTAGE [place]ACEMENT/AD VANTAGE - O) Maura Travis [id number] Maura Travis 08/03/2024 1 [facility] - DOS ON OR AFTER 2023 - ONE CARE (MEDICARE REPLACEMENT/AD VANTAGE - HMO) Maura Travis [id number] Maura Travis Notes Date Note Type Note Provider Name and Address Organization Details Recorded Time 07/08/2024 text/html central african - IPADhx of right deep lobe parotid [...] for a follicular nodule CHRIS WOO MD [address] [place] [address], [place], [address], [place] - [facility] 07/08/2024 14:01:47 OBGyn Episode No OBEpisode recorded.
== END ==
LOC: HO.CARD 10:45
PROVIDERS: PCP Internal Medicine; Visit Provider Internal Medicine Cardiovascular Disease
DX: I77.89 Other specified disorders of arteries and arterioles (principal)
CPT/HCPCS: 93306

== ENCOUNTER → 2025-05-11 10:47 | Outpatient (BNV) | payer OTHER, SELFPAY | PROVIDERS: PCP Internal Medicine; Visit Provider Internal Medicine | DX: I70.0 Atherosclerosis of aorta (principal) | CPT/HCPCS: 93306 ==

== ENCOUNTER 2025-05-18 14:12 | Outpatient (AMB) | payer OTHER, SELFPAY ==
--- NOTE | 2025-05-18 14:33 | AM.OFFVISNUR ---
Intake Visit Reasons: Bladder installation Allergies phentermine Allergy (Intermediate, Verified 03/30/25 09:48) Palpitations Nursing Note Patient in the office today for a bladder instillation. Patient reports a lot of pain in her bladder and burning with urination. Urine sample provided and dipped for a u/a showing 3+ leukocytes and blood. Reviewed results with Shanda Wall NP in office and she approves starting patient on Macrobid bid x7 days and send urine for culture. Notified patient of plan and bladder instillation not done today. Patient will follow up once finished abx to schedule new instillation. Results AMB Urinalysis, Automated UA Leukoctes 500 Denilson/uL Last Edit by Jenni Cobb RN on 05/18/25 14:33 UA Nitrite Negative Last Edit by Jenni Cobb RN on 05/18/25 14:33 UA Urobilinogen 3.5 mg/dL Last Edit by Jenni Cobb RN on 05/18/25 14:33 UA Protein 0.1 mg/dL Last Edit by Jenni Cobb RN on 05/18/25 14:33 UA pH 6.0 Last Edit by Jenni Cobb RN on 05/18/25 14:33 UA Blood 80 Brady/uL Last Edit by Jenni Cobb RN on 05/18/25 14:33 UA Specific Darwin 1.0 Last Edit by Jenni Cobb RN on 05/18/25 14:33 UA Ketone Negative Last Edit by Jenni Cobb RN on 05/18/25 14:33 UA Bilirubin 17 mg/dL Last Edit by Jenni Cobb RN on 05/18/25 14:33 UA Glucose 0 mg/dL Last Edit by Jenni Cobb RN on 05/18/25 14:33 Assessment & Plan Assessment & Plan Orders: Orders AMB Urinalysis Automated Today Z13.9 - Encounter for screening, unspecified Urine Culture Today R30.0 - Dysuria, R31.29 - Other microscopic hematuria Coding
--- OUTSIDE RECORDS SUMMARY | 2025-05-18 15:24 | XMS_ITS | Clinical Summary ---
Author Organization 175 [facility] Address [address] [place] [address] Phone Care Team Providers Care Water Supply Engineer Name Role Phone Mary Jo Conteh MD Primary Care Provider [phone] Allergies No known active allergies Medications albuterol [...] 1 (one) time each day. Active ascorbic [id number]-[id number]-vf n 1,000 mg powder effervescent in packet [...] day for 30 doses. 51 g 5 025 Active Problems Problem Noted Date Diagnosed Date Facial rhytids 10/03/2020 Calculus of gallbladder with chronic cholecystitis without obstruction 09/14/2020 Asthma 05/29/2018 Hypercholesteremia 05/29/2018 Obesity, Class I, BMI 30-34.9 05/29/2018 Resolved Problems Problem Noted Date Diagnosed Date Resolved Date Umbilical hernia 11/19/2024 12/09/2024 Encounters Date Type Department Care Team Description 03/25/2025 4:46 PM EDT - 03/25/2025 9:19 PM EDT Emergency [facility] Emergency [address] [place] [address] Chronic idiopathic constipation (Primary Dx) Discharge Disposition: [...] 73 03/25/2025 6:35 PM EDT Temperature 36.6 C (97.8 F) 03/25/2025 6:35 PM EDT Respiratory Rate 18 03/25/2025 6:35 PM EDT [...] this topic Medical Devices Implanted Type Area Superintendent Transportation Device Identifier Shelf Expiration Date Model / Serial / Lot Mesh Ventralex St 1.7in Sm [place] W/Strap - Sn/A - [id number] Implanted:Qty: 1 on 12/09/2024 by Griffin Loya MD at [facility] Surgical Mesh Sling Implants N/A: Umbilical CR BARD - DAVOL DIV [id number] / N/A / N/A Procedures Procedure Name [...] AND DIFFERENTIAL STAT 03/25/2025 1:53 PM EDT from Last 3 Months Results [...] Stephenson MD on 03/25/2025 20:56:[address] PROCEDURES Final Resul t * (ABNORMAL) Urinalysis with reflex microscopic and culture (03/25/2025 1:55 PM EDT) Specific [place] Urine 1.023 1.003 - 1.030 LAB URINALYSIS - AUTOMATED METHOD 03/25/2025 2:20 PM [facility] pH, Urine 6.0 5.0 - 8.0 pH LAB URINALYSIS - AUTOMATED METHOD 03/25/2025 2:20 PM [facility] Leukocytes, Urine Small(A) Negative LAB URINALYSIS - AUTOMATED METHOD 03/25/2025 2:20 PM [facility] Nitrite, Urine Negative Negative LAB URINALYSIS - AUTOMATED METHOD 03/25/2025 2:20 PM [facility] Protein, Urine 30(A) <=Trace mg/dL LAB URINALYSIS - AUTOMATED METHOD 03/25/2025 2:20 PM [facility] Glucose, Urine Negative Negative mg/dL LAB URINALYSIS - AUTOMATED METHOD 03/25/2025 2:20 PM [facility] Ketones, Urine Trace(A) Negative mg/dL LAB URINALYSIS - AUTOMATED METHOD 03/25/2025 2:20 PM [facility] Urobilinogen, Urine 1.0 0.2 - 1.0 mg/dL LAB URINALYSIS - AUTOMATED METHOD 03/25/2025 2:20 PM EDT [facility] Bilirubin, Urine Negative Negative LAB URINALYSIS - AUTOMATED METHOD 03/25/2025 2:20 PM EDT [facility] Blood, Urine Trace(A) Negative LAB URINALYSIS - AUTOMATED METHOD 03/25/2025 2:20 PM EDT [facility] RBC, Urine 7.3(H) 0 - 4 /HPF LAB URINALYSIS - AUTOMATED METHOD 03/25/2025 2:20 PM EDT [facility] WBC, Urine 4.5(H) 0 - 4 /HPF LAB URINALYSIS - AUTOMATED METHOD 03/25/2025 2:20 PM [facility] Squamous Epithelial, Urine 75(H) 0 - 60 /LPF LAB URINALYSIS - AUTOMATED METHOD 03/25/2025 2:20 PM T [facility] Bacteria, Urine Negative Negative /HPF LAB URINALYSIS - AUTOMATED METHOD 03/25/2025 2:20 PM [facility] Hyaline Casts, Urine 2.0 0 - 3 /LPF LAB URINALYSIS - AUTOMATED METHOD 03/25/2025 2:20 PM [facility] Urine Urine specimen obtained by clean catch procedure / Unknown Non-blood Collection / Unknown 03/25/2025 1:55 PM EDT 03/25/2025 2:08 PM EDT us Allan Tucker DO LAB URINE ORDERABLES Final Result [facility] [address] [place] [address], * [place] urine culture tube (03/25/2025 1:55 PM EDT) Extra Tube Hold for add-ons. 03/25/2025 4:02 PM EDT [facility] Comment:Auto resulted. Urine Urine specimen obtained by clean catch procedure / Unknown Non-blood Collection / Unknown 03/25/2025 1:55 PM EDT 03/25/2025 2:08 PM EDT Allan Tucker DO LAB URINE ORDERABLES Final Result Performing Organization Address [facility]/ZIP Co de Phone Number [facility] [address] [place] [address], [place] [phone] * Culture urine (03/25/2025 1:55 PM EDT) Pathologist [facility] Culture, Urine 10,000-49,000 CFU/mL Mixed urogenital fabiana, no uropathogens present. Suggest repeat specimen if clinically indicated. 03/27/2025 9:28 AM EDT [facility] Urine Urine specimen obtained by clean catch procedure / Unknown Non-blood Collection / Unknown 03/25/2025 1:55 PM EDT 03/25/2025 2:20 PM EDT us Allan Tucker DO LAB MICROBIOLOGY - GENERAL ORDERABLES Final Result Performing Organization Address [facility] de Phone Number [facility] [address] [place] [address], [place] [phone] * (ABNORMAL) CBC auto differential (03/25/2025 1:53 PM EDT) WBC 7.8 4.8 - 10.8 K/mcL LAB HEMETOLOGY METHOD 03/25/2025 2:16 PM EDT [facility] RBC 3.40(L) 3.80 - 4.80 M/mcL LAB HEMETOLOGY METHOD 03/25/2025 2:16 PM EDT [facility] Hemoglobin 8.0(L) 11.5 - 16.0 g/dL LAB HEMETOLOGY METHOD 03/25/2025 2:16 PM EDT [facility] Hematocrit 26.8(L) 35.0 - 47.0 % LAB [facility]EMETOLOGY [facility]25[facility]2025 [facility] MCV 79.5 79.0 - 98.0 FL LAB HEMETOLOGY METHOD 03/25/2025 2:[facility] MCH 23.7(L) 27.0 - 32.0 pcg LAB HEMETOLOGY METHOD 03/25/2025 2:16 PM EDT [facility] MCHC 29.9(L) 32.0 - 37.0 g/dL LAB HEMETOLOGY METHOD 03/25/2025 2:16 PM [facility] RDW 19.1(H) 11.0 - 15.0 % LAB HEMETOLOGY METHOD 03/25/2025 2:16 PM [facility] Platelets 494(H) 130 - 400 K/mcL LAB HEMETOLOGY METHOD 03/25/2025 2:16 [facility] MPV 10.4 7.0 - 11.0 FL LAB HEMETOLOGY METHOD 03/25/2025 2:16 [facility] NRBC 0.0 <1.0 % LAB HEMETOLOGY METHOD 03/25/2025 2:16 PM EDT [facility] NRBC Absolute 0.00 <0.10 K/mcL LAB HEMETOLOGY METHOD 03/25/2025 2:[facility] PM [facility] Neutrophils Relative 76.8 % LAB HEMETOLOGY METHOD 03/25/2025 2:16 PM [facility] Lymphocytes Relative 15.9 % LAB HEMETOLOGY METHOD 03/25/2025 2:16 PM [facility] Monocytes Relative 5.5 % LAB HEMETOLOGY METHOD 03/25/2025 2:16 PM EDT [facility] Eosinophils Relative 0.8 % LAB HEMETOLOGY METHOD 03/25/2025 2:16 PM EDT [facility] Basophils Relative 0.5 % LAB HEMETOLOGY METHOD 03/25/2025 2:16 PM EDT [facility] Immature Granulocytes Relative 0.5 % LAB HEMETOLOGY METHOD 03/25/2025 2:16 PM EDT [facility] Neutrophils Absolute 5.96 1.50 - 7.00 K/mcL LAB HEMETOLOGY METHOD 03/25/2025 2:16 PM EDT [facility] Lymphocytes Absolute 1.23 1.00 - 5.00 K/mcL LAB HEMETOLOGY METHOD 03/25/2025 2:16 PM EDT [facility] Monocytes Absolute 0.43 0.20 - 1.00 K/mcL LAB HEMETOLOGY METHOD 03/25/2025 2:16 PM EDT [facility] Eosinophils Absolute 0.06 0.00 - 0.50 K/mcL LAB HEMETOLOGY METHOD 03/25/2025 2:16 PM EDT [facility] Basophils Absolute 0.04 0.00 - 0.20 K/mcL LAB HEMETOLOGY METHOD 03/25/2025 2:16 PM EDT [facility] Immature Granulocytes Absolute 0.04(H) 0.00 - 0.03 K/mcL LAB HEMETOLOGY METHOD 03/25/2025 2:16 PM EDT [facility] Blood Venous blood specimen / Unknown Venipuncture / Unknown 03/25/2025 1:53 PM EDT 03/25/2025 2:09 PM EDT us Allan Tucker DO LAB BLOOD ORDERABLES Final Result [facility] [address] [place] [address], * (ABNORMAL) Comprehensive metabolic panel (03/25/2025 1:53 PM EDT) [facility] Sodium 139 133 - 145 mmol/L LAB CHEMISTRY METHOD 03/25/2025 2:37 PM [facility] Potassium 4.3 3.5 - 5.5 mmol/L LAB CHEMISTRY METHOD 03/25/2025 2:37 PM [facility] Chloride 111(H) 96 - 110 mmol/L LAB CHEMISTRY METHOD 03/25/2025 2:37 PM [facility] CO2 23 21 - 32 mmol/L LAB CHEMISTRY METHOD 03/25/2025 2:37 PM [facility] Anion Gap 5 3 - 11 LAB CHEMISTRY METHOD 03/25/2025 2:37 PM [facility] Glucose 95 70 - 100 mg/dL LAB CHEMISTRY METHOD 03/25/2025 2:37 PM [facility] BUN 17 5 - 25 mg/dL LAB CHEMISTRY METHOD 03/25/2025 2:37 PM [facility] Creatinine 0.69 0.50 - 1.10 mg/dL LAB CHEMISTRY METHOD 03/25/2025 2:37 PM [facility] eGFR 96 >=60 mL/min/1. 73m2 LAB CHEMISTRY METHOD 03/25/2025 2:37 PM [facility] Comment:Calculation based on the Chronic Kidney Disease Epidemiology Collaboration (CKD-EPI) equation refit without adjustment for race. BUN/Creatinine Ratio 24.6 LAB CHEMISTRY METHOD 03/25/2025 2:37 PM [facility] Calcium 9.4 8.5 - 10.5 mg/dL LAB CHEMISTRY METHOD 03/25/2025 2:37 PM [facility] AST (SGOT) 22 10 - 42 unit/L LAB CHEMISTRY METHOD 03/25/2025 2:37 PM [facility] ALT (SGPT) 17 10 - 60 unit/L LAB CHEMISTRY METHOD 03/25/2025 2:37 PM EDT [facility] Alkaline Phosphatase 102 42 - 121 unit/L LAB CHEMISTRY METHOD 03/25/2025 2:37 PM EDT [facility] Total Protein 7.6 6.0 - 8.0 g/dL LAB CHEMISTRY METHOD 03/25/2025 2:37 PM EDT [facility] Albumin 3.4 3.2 - 5.0 g/dL LAB CHEMISTRY METHOD 03/25/2025 2:37 PM EDT [facility] Total Bilirubin 0.3 0.0 - 1.4 mg/dL LAB CHEMISTRY METHOD 03/25/2025 2:37 PM EDT [facility] Blood Venous blood specimen / Unknown Venipuncture / Unknown 03/25/2025 1:53 PM EDT 03/25/2025 2:09 PM EDT us Allan Tucker DO LAB BLOOD ORDERABLES Final Result [facility] [address] [place] [address], from Last 3 Months Insurance [facility] MEDIC[facility] Member Subscriber Plan / Payer (Ef fective 2023-Present) Name:Maura Bansal Relation to Subscriber:Self Name:Maura Bansal Payer ID:[id number] Group ID:[id number] Type:Not on file Address: [place] [facility] [place] [address] Advance Directives Documents on File Type Date Recorded 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 Care Teams Water Supply Engineer Relationship Specialty Start Date End Date Mary Jo Conteh MD [address] [place] [address] , [address] Physician Associ D/B/A: [facility] CARLOS MANUEL Zeng PCP - General Internal Medicine 05/28/18
--- OUTSIDE RECORDS SUMMARY | 2025-05-18 15:24 | XMS_ITS | Data Portability ---
Author Organization [place] - [facility], Allergy Address [address] [address] Assessment Encounter Date Assessment Date Assessment LastModified [...] recorded. Imaging MRI, neck, w/wo contrast - argentine speaker, hx of right parotidecto my for [...] ast No observ ation record ed. [email or web address] [address], [address], 10/09/2024 09:09:01 Result Notes None recorded. Problems Name Problem SNOMED Code Status Onset Date Resolution Date Notes Provider Name and Address Organization Details Recorded Time Otalgia of right ear 5147391330 Active 2017 Otalgia, right ear; Note: Date Diagnose d: 8 4:52 PM (H92.01) Not Available 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 Medical [...] Updated DateTime 07/08/2024 152.4 cm 29.3 kg/m2 27820.86 g Marc Odonnell [place] - [facility] 07/08/2024 13:41:16 Social History None recorded. Functional Status None recorded. Mental Status None recorded. Family History Nothing Reported. Medical History No medical history recorded. Gynecological HistoryNo gynecological history recorded. Obstetrics History GPAL:G 0 P 0 0 0 0 Past Encounters Encounter ID Performer Location Encounter Start Date Encounter Closed Date Diagnosis/Indication Diagnosis SNOMED-CT Code Diagnosis ICD10 Code Diagnosis Note [id number] CHRIS WOO MD [facility] [address] [address] 07/08/2024 13:31:55 07/08/2024 14:01:53 History of malignant neoplasm of parotid gland [id number] 67323 Z85.818 Health Concerns Section Related Observation LastModified by Organization Detai ls LastModified Time None Recorded Concern Status LastModified by Organization Details LastModified Time None Recorded Advance Directives Directive None Recorded Payers Insurance Date Sequence Insurance Name Policy Number Policy Madrigal Covered Member ID Madrigal Member ID Guarantor Name 08/03/2024 1 [facility] [employer] SERVICES - [facility] [employer] [facility] ([facility] H[facility]) Maura Travis [id number] Maura Travis 07/15/2024 1 [facility] - DOS ON OR AFTER 2023 - MEDICARE [place]ANTAGE [place] ([place]ARE [place]PLACEMENT/AD VANTAGE - O) Maura Travis [id number] Maura Travis 08/03/2024 1 [facility] - DOS ON OR AFTER 2023 - ONE CARE (MEDICARE REPLACEMENT/AD VANTAGE - HMO) Maura Travis [id number] Maura Travis Notes Date Note Type Note Provider Name and Address Organization Details Recorded Time 07/08/2024 text/html argent[place] - IPADhx of right deep lobe parotid [...] for a follicular nodule CHRIS WOO MD [address] [place] [address], [place], [address], [place] - [facility] 07/08/2024 14:01:47 OBGyn Episode No OBEpisode recorded.
== END 2025-05-18 14:44 | disposition home or self-care (01) ==
LOC: HO.HUSH 14:12
PROVIDERS: PCP Internal Medicine; Visit Provider Urology
DX: Z13.9 Encounter for screening, unspecified (principal)

== ENCOUNTER 2025-05-18 14:12 | Outpatient (REF) | payer OTHER, SELFPAY | END 2025-05-18 14:13 | disposition home or self-care (01) | LOC: HO.LAB 14:12 | PROVIDERS: PCP Internal Medicine; Visit Provider Urology | DX: R31.29 Other microscopic hematuria (principal); R30.0 Dysuria | CPT/HCPCS: 81003; 87086; 87088; 87186 ==

== ENCOUNTER 2025-07-12 10:30 | Outpatient (RCR) | payer OTHER, SELFPAY ==
[2025-04-26 11:06] VITALS: BP 134/79; PULSE 66; RESP 16; TEMP 36.9; O2SAT 98
[2025-05-03 10:03] VITALS: BP 132/63; PULSE 73; RESP 16; TEMP 36.6; O2SAT 100
[2025-05-10 10:25] VITALS: BP 126/85; PULSE 76; RESP 16; TEMP 36.3; O2SAT 98
[2025-05-17 10:27] VITALS: BP 117/77; PULSE 67; RESP 18; TEMP 36.4; O2SAT 99
[2025-07-05 10:18] VITALS: BP 105/62; PULSE 51; RESP 16; TEMP 36.3; O2SAT 97
[2025-07-12 10:30] VITALS: BP 116/59; PULSE 80; RESP 16; TEMP 36.6; O2SAT 98
== END 2025-07-12 10:54 | disposition home or self-care (01) ==
LOC: HO.INF 10:30
PROVIDERS: Visit Provider Internal Medicine
DX: D50.9 Iron deficiency anemia, unspecified (principal)
CPT/HCPCS: 96365; J1756

== ENCOUNTER 2025-07-12 11:13 | Outpatient (AMB) | payer OTHER, SELFPAY ==
--- NOTE | 2025-07-12 11:20 | AM.OFFVISNUR ---
Intake Visit Reasons: TB Implant Allergies phentermine Allergy (Intermediate, Verified 03/30/25 09:48) Palpitations Office Meds tuberculin PPD 5 tub. unit/0.1 mL intradermal injection solution Performing Provider: Mary Jo Conteh MD [facility] Administered by: Irlanda Sorto RN on 07/12/25 11:20 Dose Route Admin Location Dispensed Lot Number Expiration Date [facility] First Line Production Supervisor 0.1 mL intradermal 0.1 mL [id number] 09/17/27 02965-428-00 [employer] Total Dispensed Waste 0.1 mL 0 % Assessment & Plan Assessment & Plan Orders: Orders AMB PPD Planted Today Z11.1 - Encounter for screening for respiratory tuberculosis Coding
--- OUTSIDE RECORDS SUMMARY | 2025-07-12 13:09 | XMS_ITS | Clinical Summary ---
Author Organization [facility] Address [address] [place] [address] Phone Care Team Providers Care Adult Secondary Education Instructor Name Role Phone Mary Jo Ascencio MD Primary Care Provid er Social History Tobacco Use Types Packs/Day Years Used Date Smoking Tobacco: Never Assessed Education Answer Date Recorded Are you interested in more education? Not on faiza e 03/15/2023 Are you concerned about learning? Not on file 03/15/2023 No 03/15/2023 No 03/15/2023 Digital Access Answer Date Recorded No 04/16/2023 No 04/16/2023 No 04/16/2023 Reliable internet access at home? Not on file 04/16/2023 Device with a working camera? Not on file Comments Unknown Sex and Gender Information Value Date Recorded Sex Assigned at Not on file Legal Sex Female 1:58 PM EDT Gender Identity Not on file Sexual Orientation Not on file Plan of Treatment Not on file Medical Devices Not on file Insurance [employer] [facility] [facility] [address] [place] [address] ACO Member Subscriber Plan / Payer (Ef fective 2019-Present) Name:Maura Travis Relation to Subscriber:Self Name:Maura Travis Payer ID:[id number] Group ID:[id number] Type:Medicaid Address: [address] ACO [employer] [facility] [facility] Member Subscriber Plan / Payer (Ef fective 2019-Present) Name:Maura Travis Relation to Subscriber:Self Name:Maura Travis Payer ID:[id number] Group ID:[id number] Type:Medicaid Address: [address] ACO Member Subscriber Plan / Payer (Ef fective 2019-Present) Name:Maura Travis Relation to Subscriber:Self Name:Maura Travis Payer ID:[id number] Group ID:[id number] Type:Medicaid Address: [address] [place] [address] ACO Member Subscriber Plan / Payer (Ef fective 2019-Present) Name:Maura Travis Relation to Subscriber:Self Name:Maura Travis Payer ID:[id number] Group ID:[id number] Type:Medicaid Address: [address] [place] [address] ACO Member Subscriber Plan / Payer (Ef fective 2019-Present) Name:Maura Travis Relation to Subscriber:Self Name:Maura Travis Payer ID:[id number] Group ID:[id number] Type:Medicaid Address: [address] ACO [employer] [facility] Member Subscriber Plan / Payer (Ef fective 2019-Present) Name:Maura Travis Relation to Subscriber:Self Name:Maura Travis Payer ID:[id number] Group ID:[id number] Type:Medicaid Address: [address] [place] [address] ACO Member Subscriber Plan / Payer (Ef fective 2019-Present) Name:Maura Travis Relation to Subscriber:Self Name:Maura Travis Payer ID:[id number] Group ID:[id number] Type:Medicaid Address: [address] [place] [address] ACO Member Subscriber Plan / Payer (Ef fective 2019-Present) Name:Maura Travis Relation to Subscriber:Self Name:Maura Travis Payer ID:[id number] Group ID:[id number] Type:Medicaid Address: [address] ACO Care Teams Adult Secondary Education Instructor Relationship Specialty Start Date End Date Mary Jo Ascencio MD [address] [place] [address] PCP - General 06/04/19 Additional Source Comments The information contained in this document represents components of the legal health record. It is not the complete legal health record.[facility]
--- OUTSIDE RECORDS SUMMARY | 2025-07-12 13:09 | XMS_ITS | Clinical Summary ---
Author Organization [address] [facility] Address [address] [place] [address] Phone Care Team Providers Care High School Tutor Name Role Phone Mary Jo Conteh MD Primary Care Provider [phone] Allergies No known active allergies Medications albuterol [...] 1 (one) time each day. Active ascorbic amkw-ylgbyhzt-fs n 1,000 mg powder effervescent in packet [...] Amount: 20 mg 15 tablet 5 Active tiZANidine (ZANAFLEX) 2 mg capsule Take 1 capsule (2 mg total) by mouth 3 (three) times a day if needed for muscle spasms. 90 capsule 5 07/27/20 25 Active Active Problems Problem Noted Date Diagnosed Date Facial rhytids 10/03/2020 Calculus of gallbladder with chronic cholecystitis without obstruction 09/14/2020 Asthma 05/29/2018 Hypercholesteremia 05/29/2018 Obesity, Class I, BMI 30-34.9 05/29/2018 Resolved Problems Problem Noted Date Diagnosed Date Resolved Date Umbilical hernia 11/19/2024 12/09/2024 Encounters Date Type Department Care Team Description 06/27/2025 12:20 PM EDT - 06/27/2025 4:46 PM EDT Emergency [facility] Emergency [address] [place] [address] Saud Solano MD Lumbar strain, initial encounter (Primary Dx) Discharge Disposition: Home or Self [...] Sign Reading Time Taken Comments Blood Pressure 140/84 06/27/2025 2:52 PM EDT Pulse 57 06/27/2025 2:52 PM EDT Temperature 36.9 C (98.4 F) 06/27/2025 12:14 PM EDT Respiratory Rate 18 06/27/2025 12:14 PM EDT Oxygen Saturation 99% 06/27/2025 2:52 PM EDT Inhaled Oxygen Concentration - - Weight 67.6 kg (149 lb) 06/27/2025 12:14 PM EDT Height 152.4 cm (5') 06/27/2025 12:14 PM EDT Body Mass Index 29.1 06/27/2025 12:14 PM EDT Plan of Treatment Health Maintenance Due Date Last Done Comments Breast Cancer Screening 1960 RSV Immunization Adult Patients (1 - Risk 60-74 years 1-dose series) 2018 DTaP,Tdap,and Td Vaccines (2 - Tdap) 12/31/2018 12/31/2008 Zoster Vaccines (2 of 2) 09/22/2020 07/28/2020 Cholesterol Screening (Lipid Panel) 10/21/2022 Colorectal Cancer Screening: Colonoscopy 10/21/2022 Hepatitis C Screening 10/21/2022 Medicare Annual Wellness Visit 10/21/2022 Osteoporosis Screening (Bone Density Screening) 10/21/2022 Social Influencers of Health Screening 10/21/2022 Falls Risk Assessment 2023 COVID-19 Vaccine ( season) 2024 10/18/2022, 11/01/2021, 03/10/2021, Additional history exists Depression Screening 11/18/2024 Influenza Vaccine (#1) 2025 , 08/07/2023, 08/14/2022, Additional history exists Hypertension/CHF/CAD Annual BMP Blood Test 03/25/2026 03/25/2025, 01/26/2025, 12/02/2024, Additional history exists Pneumococcal Vaccine: 50+ Years [...] this topic Medical Devices Implanted Type Area Caster Helper Device Identifier Shelf Expiration Date Model / Serial / Lot Mesh Ventralex St 1.7in Sm [place] W/Strap - Sn/A - [id number] Implanted:Qty: 1 on 12/09/2024 by Griffin Loya MD at [facility] Surgical Mesh Sling Implants N/A: Umbilical CR BARD - DAVOL DIV [id number] / N/A / N/A Procedures Procedure Name Priority Date/Time Associated Diagnosis Comments XR THORACIC SPINE 2 VIEWS STAT 06/27/2025 3:17 PM EDT XR LUMBAR SPINE 2-3 VIEWS STAT 06/27/2025 3:17 PM EDT COMPREHENSIVE METABOLIC PANEL STAT 03/25/2025 1:53 PM EDT from Last 3 Months or Most Recently Relevant to Health Maintenance Results * XR Lumbar Spine 2-3 Views (06/27/2025 3:17 PM EDT) Anatomical Region Laterality Modality Spine, L-spine Radiographic Kathy ging 06/27/2025 3:27 PM EDT Impressions 06/27/2025 3:28 PM EDT Degenerative changes of the lumbar spine. No acute traumatic findings. -------- FINAL REPORT -------- Dictated By: Jd Taylor Dictated Date: 06/27/2025 15:27 ET Assigned Physician: Jd Taylor Reviewed and Electronically Signed By: Jd Taylor Signed Date: 06/27/2025 15:28 ET Workstation ID: [id number] Transcribed By: Self Edit Transcribed Date: 06/27/2025 15:27 ET Narrative 06/27/2025 3:28 PM EDT PROCEDURE: Radiographs of the lumbar spine. HISTORY: pain. COMPARISON: None. FINDINGS: 3 views of the lumbar spine. The bones appear demineralized. There are small multilevel endplate osteophytes. Mild degenerative changes of the lower lumbar facet joints. No focal bony lesion. No compression deformity or other evidence of a fracture. There are scattered surgical clips projecting over the lower abdomen and pelvis. Surgical clips are also noted in the right upper quadrant, and partially visible staple lines in the mid and upper left abdomen. Procedure Note Jd Taylor MD - 06/27/2025 PROCEDURE: Radiographs of the lumbar spine. HISTORY: pain. COMPARISON: None. FINDINGS: 3 views of the lumbar spine. The bones appear demineralized. There aresmall multilevel endplate osteophytes. Mild degenerative changes of thelower lumbar facet joints. No focal bony lesion. No compressiondeformity or other evidence of a fracture. There are scattered surgicalclips projecting over the lower abdomen and pelvis. Surgical clips arealso noted in the right upper quadrant, and partially visible staple linesin the mid and upper left abdomen. IMPRESSION: Degenerative changes of the lumbar spine. No acute traumatic findings. -------- FINAL REPORT -------- Dictated By: Jd Taylor Dictated Date: 06/27/2025 15:27 ET Assigned Physician: Jd Taylor Reviewed and Electronically Signed By: Jd Taylor Signed Date: 06/27/2025 15:28 ET Workstation ID: [id number] Transcribed By: Self Edit Transcribed Date: 06/27/2025 15:27 ET us Saud Solano MD IMG XR PROCEDURES Final Res ult * XR Thoracic Spine 2 Views (06/27/2025 3:17 PM EDT) Anatomical Region Laterality Modality Spine, T-spine Radiographic Kathy ging 06/27/2025 3:26 PM EDT Impressions 06/27/2025 3:27 PM EDT No acute findings. -------- FINAL REPORT -------- Dictated By: Jd Taylor Dictated Date: 06/27/2025 15:26 ET Assigned Physician: Jd Taylor Reviewed and Electronically Signed By: Jd Taylor Signed Date: 06/27/2025 15:27 ET Workstation ID: [id number] Transcribed By: Self Edit Transcribed Date: 06/27/2025 15:26 ET Narrative 06/27/2025 3:27 PM EDT Procedure: Radiographs of the thoracic spine. HISTORY: pain trauma. COMPARISON: None. FINDINGS: 2 views of the thoracic spine. No compression deformity or other evidence of a fracture. Small multilevel endplate osteophytes. Tortuous thoracic aorta with atherosclerotic calcifications. A staple line is noted in the left upper quadrant of the abdomen and surgical clips are noted in the right upper quadrant of the abdomen. Procedure Note Jd Taylor MD - 06/27/2025 Procedure: Radiographs of the thoracic spine. HISTORY: pain trauma. COMPARISON: None. FINDINGS: 2 views of the thoracic spine. No compression deformity or other evidenceof a fracture. Small multilevel endplate osteophytes. Tortuous thoracicaorta with atherosclerotic calcifications. A staple line is noted in theleft upper quadrant of the abdomen and surgical clips are noted in theright upper quadrant of the abdomen. IMPRESSION: No acute findings. -------- FINAL REPORT -------- Dictated By: Jd Taylor Dictated Date: 06/27/2025 15:26 ET Assigned Physician: Jd Taylor Reviewed and Electronically Signed By: Jd Taylor Signed Date: 06/27/2025 15:27 ET Workstation ID: [id number] Transcribed By: Self Edit Transcribed Date: 06/27/2025 15:26 ET us Saud Solano MD IMG XR PROCEDURES Final Res ult * (ABNORMAL) Comprehensive metabolic panel (03/25/2025 1:53 PM EDT) [facility] Sodium 139 133 - 145 mmol/L LAB CHEMISTRY METHOD 03/25/2025 2:37 PM [facility] Potassium 4.3 3.5 - 5.5 mmol/L LAB CHEMISTRY METHOD 03/25/2025 2:37 PM [facility] Chloride 111(H) 96 - 110 mmol/L LAB CHEMISTRY METHOD 03/25/2025 2:37 PM [facility] CO2 23 21 - 32 mmol/L LAB CHEMISTRY METHOD 03/25/2025 2:37 PM [facility] Anion Gap 5 3 - 11 LAB CHEMISTRY METHOD 03/25/2025 2:37 PM [facility] Glucose 95 70 - 100 mg/dL LAB CHEMISTRY METHOD 03/25/2025 2:37 PM [facility] BUN 17 5 - 25 mg/dL LAB CHEMISTRY METHOD 03/25/2025 2:37 PM [facility] Creatinine 0.69 0.50 - 1.10 mg/dL LAB CHEMISTRY METHOD 03/25/2025 2:37 PM [facility] eGFR 96 >=60 mL/min/1. 73m2 LAB CHEMISTRY METHOD 03/25/2025 2:37 PM [facility] Comment:Calculation based on the Chronic Kidney Disease Epidemiology Collaboration (CKD-EPI) equation refit without adjustment for race. BUN/Creatinine Ratio 24.6 LAB CHEMISTRY METHOD 03/25/2025 2:37 PM [facility] Calcium 9.4 8.5 - 10.5 mg/dL LAB CHEMISTRY METHOD 03/25/2025 2:37 PM EDT [facility] AST (SGOT) 22 10 - 42 unit/L LAB CHEMISTRY METHOD 03/25/2025 2:37 PM EDT [facility] ALT (SGPT) 17 10 - 60 unit/L LAB CHEMISTRY METHOD 03/25/2025 2:37 PM EDT [facility] Alkaline Phosphatase 102 42 - 121 unit/L LAB CHEMISTRY METHOD 03/25/2025 2:37 PM EDT [facility] Total Protein 7.6 6.0 - 8.0 g/dL LAB CHEMISTRY METHOD 03/25/2025 2:37 PM EDT [facility] Albumin 3.4 3.2 - 5.0 g/dL LAB CHEMISTRY METHOD 03/25/2025 2:37 PM EDT [facility] Total Bilirubin 0.3 0.0 - 1.4 mg/dL LAB CHEMISTRY METHOD 03/25/2025 2:37 PM EDT [facility] Blood Venous blood specimen / Unknown Venipuncture / Unknown 03/25/2025 1:53 PM EDT 03/25/2025 2:09 PM EDT us Allan Tucker DO LAB BLOOD ORDERABLES Final Result [facility] [address] [place] [address], from Last 3 Months or Most Recently Relevant to Health Maintenance Insurance [facility]IC[facility] Member Subscriber Plan / Payer (Ef fective 2023-Present) Name:Maura Travis Relation to Subscriber:Self Name:Maura Bansal Payer ID:[id number] Group ID:[id number] Type:Not on file Address: [facility] [address] [address] Advance Directives Documents on File Type Date Recorded Patient Offline Cutter Expl anation Health Care Decision (hx) 05/24/2015 [...] currently active code status orders. Care Teams High School Tutor Relationship Specialty Start Date End Date Mary Jo Conteh MD [address] [facility] , [address] [place] [address] Physician Associ D/B/A: [facility] CARLOS MANUEL Zeng PCP - General Internal Medicine 05/28/18
== END 2025-07-12 11:45 | disposition home or self-care (01) ==
LOC: HO.HMCH 11:35
PROVIDERS: PCP Internal Medicine; Visit Provider Internal Medicine
DX: Z11.1 Encounter for screening for respiratory tuberculosis (principal)

== ENCOUNTER → 2025-07-12 11:13 | Outpatient (BNVA) | payer OTHER, SELFPAY | PROVIDERS: PCP Internal Medicine; Visit Provider Internal Medicine | DX: Z11.1 Encounter for screening for respiratory tuberculosis (principal) | CPT/HCPCS: 86580 ==

== ENCOUNTER 2025-08-06 09:58 | Outpatient (AMB) | payer OTHER, SELFPAY ==
--- NOTE | 2025-08-06 10:10 | A.OFFVIS_ITS ---
Intake Visit Reasons: 6M follow up Intake Note: Patient presents to office today for a 6m follow up Urology Medication:Pyridium Antibiotic Allergy:NONE Blood Thinner:NONE PVR:0ml Manager Performance Improvement Required: Yes Manager Performance Improvement Name: Marija [facility] [place] certif interp Information Interpreted: non-clinical & clinical Allergies phentermine Allergy (Intermediate, Verified 08/06/25 10:18) Palpitations HPI Comments Details: 08/06/25--Maura is here for follow-up chronic interstitial cystitis. History of Present Illness The patient is a 64-year-old female presenting with bladder pain and a history of urinary tract infections. The patient has been experiencing bladder pain, which has persisted despite previous treatments. She reports using medication that was prescribed to alleviate the pain, but the discomfort continues. In May, the patient was treated for a urinary tract infection, which was confirmed during her visit. Since then, she has continued to experience pain, although her urine currently shows no signs of infection. The patient has been receiving bladder installations, which include heparin and lidocaine, administered biweekly- q month by the nursing staff. These treatments are intended to manage her symptoms and provide relief. Plan 1. Bladder Pain - Prescribed gabapentin 300 mg once daily in the morning for pain management. - Pyridium prescribed for use as needed to alleviate discomfort. - Scheduled follow-up in six months to assess treatment efficacy. 2. Urinary Tract Infection - Current urine analysis shows no signs of infection. - Monitor symptoms and consider further testing if symptoms persist or worsen. 3. Bladder Installations - Continue bladder installations with heparin and lidocaine biweekly. 4. Interstitial Cystitis- Schedule repeat Cystoscopy Hydrodistension 01/29/25-- 64-year-old female presenting with chronic interstitial cystitis and a recent urinary tract infection. She has been under continuous urological care for interstitial cystitis, undergoing bladder instillations of lidocaine and heparin. Previously maintained on a monthly schedule, these instillations are n ow being adjusted for better symptom management. Presenting to the emergency department recently for urinary symptoms, she was treated for an infection and has nearly completed a prescribed antibiotic course. Today, the patient reports gastrointestinal issues linked to recent gabapentin use, leading to self- discontinuation of the medication. Serial urinary assessments show infection resolution, indicating treatment efficacy. Urinary Symptoms Review - Current urinalysis shows no infection Results - Tests and Diagnostics: Urinalysis today showing no signs of infection 09/28/24--Maura is a 64-year-old female with chronic interstitial cystitis. Last cystoscopy hydrodistention was on 12/24/2023. IC management has included bladder instillations.She was started on gabapentin 100 mg bid which she states has helped but she still has bladder pain. Discussed continuing bladder instillaitons, increase gabapentin to 300 bid. 03/30/24--Maura is a 63-year-old female with chronic interstitial cystitis. Status post repeat cystoscopy hydrodistention on 12/24/2023. She states that urinary symptoms are improved. She still does get a flare of bladder pain intermittently. Will continue hydroxyzine. Will resume bladder installations every 2 weeks x3 and then maintenance once a month to once every 6 weeks, cont vaginal estrogen therapy, follow-up with me in 6 months. 12/02/23--Maura is a 62-year-old female who presents today to the office for FU, she was in the ED on 11/27/23 with complaints of abdominal, bladder pain and hematuria. She previously had a CTAP w/contrast done on 11/09/23 - and in regards to urinary tract; right kidney changes suggestive of focal pyelonephritis, negative for nephrolithiasis 07/10/2023?Maura is followed today for bladder pain. She was last seen by me on 03/25/2023 for bladder pain. Discussed weekly bladder installations for 4 weeks, then every 2 weeks and Vagifem suppository twice a week was ordered at that time. She has a history of diabetes and gastric bypass. She had noted improvement with the bladder instillations. She has not had a bladder instillation since 05/17/2023 and is complaining that the bladder pressure pain is back. She states that the hydroxyzine did not help her and seem to cause more burning with urination. 03/25/2023?The patient is Qatari speaking female. Certified Qatari speaking parts interpreter was present during the visit. LV--12/06/22-- seen in the office for recurrent UTIs. Comorbidity diabetes. h/o Gastric bypass prior cardiology for evaluation for tachycardia.? also states she needed to have a breast biopsy done s/p cystoscopy hydrodistension- findings bladder capacity 700 mL, no glomerulations visualized previous pelvic exam, point bladder tenderness--treated with Vistaril 25 mg qhs.? and Bladder instillations weekly for 6 weeks, then maintenance q month Imagin05/17/22--CT ABDOMEN AND PELVIS WITH CONTRAST-- kidneys wnl, no renal calculi?? 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 Asthma Paget's disease Fibromyalgia Nontoxic multinodular goiter Osteoarthritis HTN (hypertension) Surgical History Hx of hernia repair History of esophagogastroduodenoscopy (EGD) H/O colonoscopy History of excision of mass (08/21/23) History of removal of laparoscopic gastric banding device History of cystoscopy History of lobectomy of thyroid Mass of right parotid gland H/O laparoscopic adjustable gastric banding Hx of lithotripsy History of dilation and curettage History of delivery Hx of tonsillectomy Hx of gastric bypass Family History Mother Diabetes HTN (hypertension) Father Pancreatic cancer Diabetes HTN (hypertension) Maternal Grandmother Myocardial infarction Cancer Brother Pancreatic cancer Sister Uterine cancer Social History Household Members: Family Housing: House Are you a primary manager managed care to a significant other at home: No Do you presently have visiting nurse or other home services: No Alcohol intake: never Patient Tobacco Use Status: Former Tobacco user Tobacco use type: Cigarette e-Cigarette/Vaping Use: Never Used Second Hand Smoke Exposure: No service: No Current occupational status: unemployed and disabled Sexual orientation: Straight/Heterosexual Gender identity: Female Cognitive needs: No Hearing needs: No Vision needs: Yes (glasses) Female Reproductive History Menstrual Age of Menarche: 10 Review of Systems Const All systems reviewed & are unremarkable except as noted in HPI and below Reports no additional complaints Eyes Reports no additional complaints ENT Reports no additional complaints Card Reports no additional complaints Resp Reports no additional complaints GI Reports no additional complaints Reports as per HPI Musc Reports no additional complaints Skin/Breast Reports system reviewed and no additional complaints, except as documented Neuro Reports no additional complaints Psych Reports no additional complaints Endo Reports no additional complaints Moses/Lymph Reports no additional complaints Aller/Immun Reports no additional complaints Results AMB Urinalysis, Automated UA Leukoctes 0 Denilson/uL Last Edit by Crystal Andino on 08/06/25 17:06 UA Nitrite Negative Last Edit by Crystal Andino on 08/06/25 17:06 UA Urobilinogen 3.5 mg/dL Last Edit by Crystal Andino on 08/06/25 17:06 UA Protein 0 mg/dL Last Edit by Crystal Andino on 08/06/25 17:06 UA pH 6.0 Last Edit by Crystal Andino on 08/06/25 17:06 UA Blood 80 Brady/uL Last Edit by Crystal Andino on 08/06/25 17:06 UA Specific Dolliver 1.015 Last Edit by Carline Andino on 08/06/25 17:06 UA Ketone Negative Last Edit by Carline Andino on 08/06/25 17:06 UA Bilirubin 0 mg/dL Last Edit by Crystal Andino on 08/06/25 17:06 UA Glucose 0 mg/dL Last Edit by Crystal Andino on 08/06/25 17:06 Results Reviewed Results Reviewed: Laboratory Last Values Urine pH (Auto) 6.0 08/06/25 11:51 Specific Dolliver (Auto) 1.015 08/06/25 11:51 Urine Protein (Auto) 0 mg/dL 08/06/25 11:51 Glucose (UA)(Auto) 0 mg/dL 08/06/25 11:51 Urine Ketones (Auto) Negative 08/06/25 11:51 Urine Blood (Auto) 80 Brady/uL 08/06/25 11:51 Urine Nitrite (Auto) Negative 08/06/25 11:51 Urine Bilirubin (Auto) 0 mg/dL 08/06/25 11:51 Urine Urobilinogen (Auto) 3.5 mg/dL 08/06/25 11:51 Leukocyte Esterase (Auto) 0 Denilson/uL 08/06/25 11:51 Assessment & Plan Assessment & Plan (1) Interstitial cystitis: Code(s): N30.10 - Interstitial cystitis (chronic) without hematuria Category: Medical (2) Pelvic pain in female: Code(s): R10.2 - Pelvic and perineal pain Category: Medical Plan Plan 1. Bladder Pain - Prescribed gabapentin 300 mg once daily in the morning for pain management. - Pyridium prescribed for use as needed to alleviate discomfort. - Scheduled follow-up in six months to assess treatment efficacy. 2. Urinary Tract Infection - Current urine analysis shows no signs of infection. - Monitor symptoms and consider further testing if symptoms persist or worsen. 3. Bladder Installations - Continue bladder installations with heparin and lidocaine biweekly. 4. Interstitial Cystitis - Schedule repeat cystoscopy hydrodistension as an outpatient procedure. Orders: Orders AMB Urinalysis Automated 08/06/25 N30.10 - Interstitial cystitis (chronic) without hematuria, N39.41 - Urge incontinence, R31.29 - Other microscopic hematuria Medications: Changed From phenazopyridine (Pyridium) 100 mg PO TID 5 days PRN 15 tabs 0RF pain To phenazopyridine (Azo Urinary Pain Relief) Must administer with food 199 mg (2 x 99.5 mg) PO TID PRN 48 tabs 1RF Bladder pain From gabapentin PO N30.10 - Interstitial cystitis (chronic) without hematuria, R10.2 - Pelvic and perineal pain To gabapentin 300 mg PO DAILY 30 caps 3RF N30.10 - Interstitial cystitis (chronic) without hematuria, R10.2 - Pelvic and perineal pain Patient Instructions: The patient had an opportunity to ask questions regarding treatment plan. The patient expressed understanding and agreement with the above treatment plan. The patient is aware they should contact our office by phone for worsening of their current condition or the appearance of new symptoms. Compliance is encouraged with any medications and followup testing that is ordered. It is a privilege to be allowed the opportunity to participate in the urologic care of your patient. If you have any questions or concerns regarding treatment for the above conditions please do not hesitate to contact me. The office telephone contact is [phone]. This note is constructed in part using voice recognition software. While every effort has been made to ensure accuracy strategic procurement manager errors may have been included. Yours sincerely, Saige Henning MD Scribe Plan - Not visible on output: Patient was informed and verbally consented to the use of an ambient scribe for clinic note documentation during this visit. Coding Level of Care Code Est Pt Level 4 (28312) Complex EM visit Add On G2211 Diagnoses Interstitial cystitis N30.10 Pelvic pain in female R10.2
--- OUTSIDE RECORDS SUMMARY | 2025-08-06 10:30 | XMS_ITS | Clinical Summary ---
Author Organization [address] [facility] Address [address] [place] [address] Phone Care Team Providers Care Futures Trader Name Role Phone Mary Jo Conteh MD Primary Care Provider [phone] Allergies No known active allergies Medications albuterol [...] 1 (one) time each day. Active ascorbic rvdy-tcdcklib-ed n 1,000 mg powder effervescent in packet [...] needed for muscle spasms. 90 capsule 5 Active Active Problems Problem Noted Date Diagnosed Date Facial rhytids 10/03/2020 Calculus of gallbladder with chronic cholecystitis without obstruction 09/14/2020 Asthma 05/29/2018 Hypercholesteremia 05/29/2018 Obesity, Class I, BMI 30-34.9 05/29/2018 Resolved Problems Problem Noted Date Diagnosed Date Resolved Date Umbilical hernia 11/19/2024 12/09/2024 Encounters Date Type Department Care Team Description 06/27/2025 12:20 PM EDT - 06/27/2025 4:46 PM EDT Emergency [facility] Emergency [address] [place] [address] Saud Solano MD Lumbar strain, [...] Health Screening 10/21/2022 Falls Risk Assessment 2023 Depression Screening 11/18/2024 COVID-19 Vaccine ( season) 2025 10/18/2022, 11/01/2021, 03/10/2021, Additional history exists Influenza Vaccine (#1) 2025 , 08/07/2023, 08/14/2022, [...] this topic Medical Devices Implanted Type Area Sawdust Machine Operator Device Identifier Shelf Expiration Date Model / Serial / Lot Mesh Ventralex St 1.7in Sm [place] W/Strap - Sn/A - [id number] Implanted:Qty: 1 on 12/09/2024 by Griffin Loya MD at [facility] Surgical Mesh Sling Implants N/A: Umbilical CR BARD - DAVOL DIV [id number] / N/A / N/A Procedures Procedure Name [...] Signed Date: 06/27/2025 15:28 ET Workstation ID: [id number] Transcribed By: Self Edit Transcribed Date: 06/27/2025 [...] Signed Date: 06/27/2025 15:28 ET Workstation ID: [id number] Transcribed By: Self Edit Transcribed Date: 06/27/2025 [...] Signed Date: 06/27/2025 15:27 ET Workstation ID: [id number] Transcribed By: Self Edit Transcribed Date: 06/27/2025 [...] Signed Date: 06/27/2025 15:27 ET Workstation ID: [id number] Transcribed By: Self Edit Transcribed Date: 06/27/2025 15:26 ET us Saud Solano MD IMG XR PROCEDURES Final Res ult * (ABNORMAL) Comprehensive metabolic panel (03/25/2025 1:53 PM EDT) Pathologist [facility] Sodium 139 133 - 145 mmol/L LAB CHEMISTRY METHOD 03/25/2025 2:37 PM [facility] Potassium 4.3 3.5 - 5.5 mmol/L LAB CHEMISTRY METHOD 03/25/2025 2:37 PM [facility] Chloride 111(H) 96 - 110 mmol/L LAB CHEMISTRY METHOD 03/25/2025 2:37 PM [facility] CO2 23 21 - 32 mmol/L LAB CHEMISTRY METHOD 03/25/2025 2:37 PM [facility] Anion Gap 5 3 - 11 LAB CHEMISTRY METHOD 03/25/2025 2:37 PM [facility] Glucose 95 70 - 100 mg/dL LAB CHEMISTRY METHOD 03/25/2025 2:37 PM [facility] BUN 17 5 - 25 mg/dL LAB CHEMISTRY METHOD 03/25/2025 2:37 PM [facility] Creatinine 0.69 0.50 - 1.10 mg/dL LAB CHEMISTRY METHOD 03/25/2025 2:37 PM [facility] eGFR 96 >=60 mL/min/1. 73m2 LAB CHEMISTRY METHOD 03/25/2025 2:37 PM [facility] Comment:Calculation based on the Chronic Kidney Disease Epidemiology Collaboration (CKD-EPI) equation refit without adjustment for race. BUN/Creatinine Ratio 24.6 LAB CHEMISTRY METHOD 03/25/2025 2:37 PM [facility] Calcium 9.4 8.5 - 10.5 mg/dL LAB CHEMISTRY METHOD 03/25/2025 2:[address] [facility] AST (SGOT) 22 10 - 42 unit/L LAB CHEMISTRY METHOD 03/25/2025 2:[address] [facility] ALT (SGPT) 17 10 - 60 unit/L LAB CHEMISTRY METHOD 03/25/2025 2:[address] [facility] Alkaline Phosphatase 102 42 - 121 unit/L LAB CHEMISTRY METHOD 03/25/2025 2:[address] [facility] Total Protein 7.6 6.0 - 8.0 g/dL LAB CHEMISTRY METHOD 03/25/2025 2:[address] [facility] Albumin 3.4 3.2 - 5.0 g/dL LAB CHEMISTRY METHOD 03/25/2025 2:[address] [facility] Total Bilirubin 0.3 0.0 - 1.4 mg/dL LAB CHEMISTRY METHOD 03/25/2025 2:[address] [facility] Blood Venous blood specimen / Unknown Venipuncture / Unknown 03/25/2025 1:53 PM EDT 03/25/2025 2:09 PM EDT us Allan Tucker DO LAB BLOOD ORDERABLES Final Result Performing Organization Address City/State/[facility] Co de Phone Number [facility] [address] [place] [address], from Last 3 Months or Most Recently Relevant to Health Maintenance Insurance [facility] MEDICARE Member Subscriber Plan / Payer (Ef fective 2023-Present) Name:Maura Travis Relation to Subscriber:Self Name:Maura Bansal Payer ID:[id number] Group ID:[id number] Type:Not on file Address: [facility] [address] [address] Advance Directives Documents on File Type Date Recorded Patient Certified Midwife Expl anation Health Care Decision (hx) 05/24/2015 [...] DIRECTIVE Health Care Decision (hx) 05/24/2015 AD PRAAJPATI DIRECTIVE Health Care Decision (hx) 05/24/2015 AD [...] currently active code status orders. Care Teams Futures Trader Relationship Specialty Start Date End Date Mary Jo Conteh MD [address] [facility] , [address] [facility] D/B/A: [facility] Internal Medicine CARLOS MANUEL Zeng PCP - General Internal Medicine 05/28/18
--- OUTSIDE RECORDS SUMMARY | 2025-08-06 10:30 | XMS_ITS | Clinical Summary ---
Author Organization [facility] Address [address] [place] [address] Phone Care Team Providers Care Fur Examiner Name Role Phone Mary Jo Ascencio MD [...] file Medical Devices Not on file Insurance [facility] ACO [address] [place] [address] ACO Member Subscriber Plan / Payer (Ef fective 2019-Present) Name:Maura Travis Relation to Subscriber:Self Name:Maura Travis Payer ID:[id number] Group ID:[id number] Type:Medicaid Address: [address] ACO [facility] ACO Member Subscriber Plan / Payer (Ef fective 2019-Present) Name:Maura Travis Relation to Subscriber:Self Name:Maura Travis Payer ID:[id number] Group ID:[id number] Type:Medicaid Address: [address] ACO Member Subscriber Plan / Payer (Ef fective 2019-Present) Name:Maura Travis Relation to Subscriber:Self Name:Maura Travis Payer ID:[id number] Group ID:[id number] Type:Medicaid Address: [address] [place] [address] ACO Member Subscriber Plan / Payer (Ef fective 2019-Present) Name:Maura Travis Relation to Subscriber:Self Name:Maura Travis Payer ID:[id number] Group ID:[id number] Type:Medicaid Address: [address] [place] [address] ACO Member Subscriber Plan / Payer (Ef fective 2019-Present) Name:Maura Travis Relation to Subscriber:Self Name:Maura Travis Payer ID:[id number] Group ID:[id number] Type:Medicaid Address: [address] ACO [facility] ACO Member Subscriber Plan / Payer (Ef fective 2019-Present) Name:Maura Travis Relation to Subscriber:Self Name:Maura Travis Payer ID:[id number] Group ID:[id number] Type:Medicaid Address: [address] [place] [address] ACO Member Subscriber Plan / Payer (Ef fective 2019-Present) Name:Maura Travis Relation to Subscriber:Self Name:Maura Travis Payer ID:[id number] Group ID:[id number] Type:Medicaid Address: [address] [place] [address] ACO Member Subscriber Plan / Payer (Ef fective 2019-Present) Name:Maura Travis Relation to Subscriber:Self Name:Maura Travis Payer ID:[id number] Group ID:[id number] Type:Medicaid Address: [address] ACO Care Teams Fur Examiner Relationship Specialty Start Date End Date Mary Jo Ascencio MD [address] [place] [address] PCP - General 06/04/19 Additional Source Comments The information contained in this document represents components of the legal health record. It is not the complete legal health record.[facility]
== END 2025-08-06 11:24 | disposition home or self-care (01) ==
LOC: HO.HUSH 09:58
PROVIDERS: PCP Internal Medicine; Visit Provider Urology
DX: N30.10 Interstitial cystitis (chronic) without hematuria (principal); N39.41 Urge incontinence; R31.29 Other microscopic hematuria
CPT/HCPCS: 99214; G2211

== ENCOUNTER → 2025-08-06 09:58 | Outpatient (BNVA) | payer OTHER, SELFPAY | PROVIDERS: PCP Internal Medicine; Visit Provider Urology | DX: N30.10 Interstitial cystitis (chronic) without hematuria (principal); R10.2 Pelvic and perineal pain | CPT/HCPCS: 81003; 99212 ==

== ENCOUNTER 2025-08-13 10:18 | Outpatient (AMB) | payer OTHER, SELFPAY ==
--- NOTE | 2025-08-13 10:45 | AM.OFFVISNUR ---
Intake Visit Reasons: bladder instillation Allergies phentermine Allergy (Intermediate, Verified 08/06/25 10:18) Palpitations Nursing Note Patient presents to the office today for a bladder instillation she reports she feels like she may have an infection because she has burning. Clean catch urine obtain and dipped in office. Everything is normal except 1+ leukocytes and 1+blood. Patient expressed she does not feel comfortable going forward with the test because she feels like she has an infection. Advised her based on the urinalysis we should just wait until she has her urine culture done. Office asl interpreter utilized and explained to patient on waiting for the culture results. Patient expressed for a year now she has had blood in her urine and always in pain and she wants to be referred to nephrology because she has a feeling something is wrong and wants to be checked out. Advised her we would discuss with Dr. Sheth. Will follow up with patient on Saturday. Results AMB Urinalysis, Automated UA Leukoctes 70 Denilson/uL Last Edit by Jenni Cobb RN on 08/13/25 10:46 UA Nitrite Negative Last Edit by Jenni Cobb RN on 08/13/25 10:46 UA Urobilinogen 3.5 mg/dL Last Edit by Jenni Cobb RN on 08/13/25 10:46 UA Protein 0.1 mg/dL Last Edit by Jenni Cobb RN on 08/13/25 10:46 UA pH 6.0 Last Edit by Jenni Cobb RN on 08/13/25 10:46 UA Blood 25 Brady/uL Last Edit by Jenni Cobb RN on 08/13/25 10:46 UA Specific Simon 1.0 Last Edit by Jenni Cobb RN on 08/13/25 10:46 UA Ketone Negative Last Edit by Jenni Cobb RN on 08/13/25 10:46 UA Bilirubin 0 mg/dL Last Edit by Jenni Cobb RN on 08/13/25 10:46 UA Glucose 0 mg/dL Last Edit by Jenni Cobb RN on 08/13/25 10:46 Assessment & Plan Assessment & Plan Orders: Orders Urine Culture Today R30.0 - Dysuria, R31.29 - Other microscopic hematuria AMB Urinalysis Automated Today Z13.9 - Encounter for screening, unspecified Coding
--- OUTSIDE RECORDS SUMMARY | 2025-08-13 11:39 | XMS_ITS | Clinical Summary ---
Author Organization [facility] Address [address] [place] [address] Phone Care Team Providers Care Registered Appraiser Name Role Phone Mary Jo Ascencio MD [...] file Medical Devices Not on file Insurance [facility] ACO [address] [place] [address] ACO Member Subscriber Plan / Payer (Ef fective 2019-Present) Name:Maura Travis Relation to Subscriber:Self Name:Maura Travis Payer ID:[id number] Group ID:[id number] Type:Medicaid Address: [address] ACO [facility] ACO Member Subscriber Plan / Payer (Ef fective 2019-Present) Name:Maura Travis Relation to Subscriber:Self Name:Maura Travis Payer ID:[id number] Group ID:[id number] Type:Medicaid Address: [address] ACO Member Subscriber Plan / Payer (Ef fective 2019-Present) Name:Maura Travis Relation to Subscriber:Self Name:Maura Travis Payer ID:[id number] Group ID:[id number] Type:Medicaid Address: [address] [place] [address] ACO Member Subscriber Plan / Payer (Ef fective 2019-Present) Name:Maura Travis Relation to Subscriber:Self Name:Maura Travis Payer ID:[id number] Group ID:[id number] Type:Medicaid Address: [address] [place] [address] ACO Member Subscriber Plan / Payer (Ef fective 2019-Present) Name:Maura Travis Relation to Subscriber:Self Name:Maura Travis Payer ID:[id number] Group ID:[id number] Type:Medicaid Address: [address] ACO [facility] ACO Member Subscriber Plan / Payer (Ef fective 2019-Present) Name:Maura Travis Relation to Subscriber:Self Name:Maura Travis Payer ID:[id number] Group ID:[id number] Type:Medicaid Address: [address] [place] [address] ACO Member Subscriber Plan / Payer (Ef fective 2019-Present) Name:Maura Travis Relation to Subscriber:Self Name:Maura Travis Payer ID:[id number] Group ID:[id number] Type:Medicaid Address: [address] [place] [address] ACO Member Subscriber Plan / Payer (Ef fective 2019-Present) Name:Maura Travis Relation to Subscriber:Self Name:Maura Travis Payer ID:[id number] Group ID:[id number] Type:Medicaid Address: [address] ACO Care Teams Registered Appraiser Relationship Specialty Start Date End Date Mary Jo Ascencio MD [address] [place] [address] PCP - General 06/04/19 Additional Source Comments The information contained in this document represents components of the legal health record. It is not the complete legal health record.[facility]
--- OUTSIDE RECORDS SUMMARY | 2025-08-13 11:39 | XMS_ITS | Clinical Summary ---
Author Organization 175 [facility] Address [address] [place] [address] Phone Care Team Providers Care Compressor Stations Superintendent Name Role Phone Mary Jo Conteh MD Primary Care Provider [phone] Allergies No known active allergies Medications albuterol [...] 1 (one) time each day. Active ascorbic vcny-eohuofnp-wi n 1,000 mg powder effervescent in packet [...] EDT - 06/27/2025 4:46 PM EDT Emergency [facility] Emergency [address] [place] [address] Saud Solano MD Lumbar strain, [...] this topic Medical Devices Implanted Type Area Telegraph And Teletype Operator Device Identifier Shelf Expiration Date Model / Serial / Lot Mesh Ventralex St 1.7in Sm [place] W/Strap - Sn/A - [id number] Implanted:Qty: 1 on 12/09/2024 by Griffin Loya MD at [facility] Surgical Mesh Sling Implants N/A: Umbilical CR BARD - DAVOL DIV [id number] / N/A / N/A Procedures Procedure Name [...] Signed Date: 06/27/2025 15:28 ET Workstation ID: [id number] Transcribed By: Self Edit Transcribed Date: 06/27/2025 [...] Signed Date: 06/27/2025 15:28 ET Workstation ID: [id number] Transcribed By: Self Edit Transcribed Date: 06/27/2025 [...] Signed Date: 06/27/2025 15:27 ET Workstation ID: [id number] Transcribed By: Self Edit Transcribed Date: 06/27/2025 [...] Signed Date: 06/27/2025 15:27 ET Workstation ID: [id number] Transcribed By: Self Edit Transcribed Date: 06/27/2025 15:26 ET us Sadu Solano MD IMG XR PROCEDURES Final Res ult * (ABNORMAL) Comprehensive metabolic panel (03/25/2025 1:53 PM EDT) Pathologist [facility] Sodium 139 133 - 145 mmol/L LAB CHEMISTRY METHOD 03/25/2025 2:37 PM [facility] Potassium 4.3 3.5 - 5.5 mmol/L LAB CHEMISTRY METHOD 03/25/2025 2:37 PM [facility] Chloride 111(H) 96 - 110 [...] LAB CHEMISTRY METHOD 03/25/2025 2:37 PM EDT [facility] AST (SGOT) 22 10 - 42 unit/L LAB CHEMISTRY METHOD 03/25/2025 2:37 PM EDT [facility] ALT (SGPT) 17 10 - 60 unit/L LAB CHEMISTRY METHOD 03/25/2025 2:37 PM EDT [facility] Alkaline Phosphatase 102 42 - 121 unit/L LAB CHEMISTRY METHOD 03/25/2025 2:37 PM EDT [facility] Total Protein 7.6 6.0 - 8.0 g/dL LAB CHEMISTRY METHOD 03/25/2025 2:37 PM EDT [facility] Albumin 3.4 3.2 - 5.0 g/dL LAB CHEMISTRY METHOD 03/25/2025 2:37 PM EDT [facility] Total Bilirubin 0.3 0.0 - 1.4 mg/dL LAB CHEMISTRY METHOD 03/25/2025 2:37 PM EDT [facility] Blood Venous blood specimen / Unknown Venipuncture / Unknown 03/25/2025 1:53 PM EDT 03/25/2025 2:09 PM EDT us Allan Tucker DO LAB BLOOD ORDERABLES Final Result Performing Organization Address City/State/[facility] Co de Phone Number [facility] [address] [place] [address], from Last 3 Months or Most Recently Relevant to Health Maintenance Insurance [facility] MEDIC[facility] Member Subscriber Plan / Payer (Ef fective 2023-Present) Name:Maura Travis Relation to Subscriber:Self Name:Maura Bansal Payer ID:[id number] Group ID:[id number] Type:Not on file Address: [facility] [address] [address] Advance Directives Documents on File Type Date Recorded Patient Education Instructor Expl anation Health Care Decision (hx) 05/24/2015 [...] currently active code status orders. Care Teams Compressor Stations Superintendent Relationship Specialty Start Date End Date Mary Jo Conteh MD 2 [facility] , [address] [facility] Physician Associ D/B/A: [facility] CARL[facility] MANUEL Zeng PCP - General Internal Medicine 05/28/18
== END 2025-08-13 11:28 | disposition home or self-care (01) ==
LOC: HO.HUSH 10:19
PROVIDERS: PCP Internal Medicine; Visit Provider Urology
DX: Z13.9 Encounter for screening, unspecified (principal)

== ENCOUNTER 2025-08-13 10:18 | Outpatient (REF) | payer OTHER, SELFPAY | END 2025-08-13 10:19 | disposition home or self-care (01) | LOC: HO.LAB 10:18 | PROVIDERS: PCP Internal Medicine; Visit Provider Urology | DX: R31.29 Other microscopic hematuria (principal); R30.0 Dysuria | CPT/HCPCS: 81003; 87086 ==

== ENCOUNTER 2025-08-16 09:04 | Outpatient (AMB) | payer OTHER, SELFPAY ==
--- NOTE | 2025-08-16 09:06 | MHC.PC.OV ---
Vital Signs 08/16/25 09:07 Height 5 ft 1 in Weight 151 lb 6 oz BMI 28.6 BP 98/60 Blood Pressure Location Lt brachial Position Sitting Respiration 18 Pulse 62 Pulse Source Pulse Oximeter Temp 97.1 F Temp Source Temporal Artery Scan Pulse Oximetry (%) 97 Oxygen Delivery Method Room Air Intake Visit Reasons: Annual Exam Special Inspector Required: No Accompanied by: Self / Same As Patient Allergies phentermine Allergy (Intermediate, Verified 08/16/25 09:23) Palpitations Medication List - Last Reconciled 08/16/25 by Mary Jo Conteh MD acetaminophen 1,000 mg (2 x 500 mg) PO Q8H PRN albuterol sulfate 2.5 mg (3 mL) inhalation RQ4H WHILE AWAKE albuterol sulfate 90 mcg/actuation 2 puffs inhalation Q6H PRN alcohol swabs (Alcohol Prep Pads) 1 pad topical TID 30 days ascorbic acid (vitamin C) (Vitamin C) 500 mg PO BID bismuth subsalicylate 2 tabs PO QID 14 days blood sugar diagnostic (FreeStyle Lite Strips) to test 2 to 3 times a day as directed blood-glucose meter (FreeStyle Lite Meter kit) As directed calcium citrate 500 mg PO BID cholecalciferol (vitamin D3) 1,250 mcg PO QWEEK esomeprazole magnesium 40 mg PO DAILY folic acid 1 mg PO DAILY 90 days gabapentin 300 mg PO DAILY hyoscyamine sulfate 0.125 mg PO BID-QID PRN incontinence pad, liner, disp As directed lancets (FreeStyle Lancets) Use 1 lancet once a day lancets (Pure Comfort Safety Lancets) As directed metoprolol succinate ER 25 mg PO DAILY 90 days nebulizers (AeroEclipse II Nebulizer) As directed nitrofurantoin monohyd/m-cryst 100 mg (Macrobid) 100 mg PO BID 7 days ondansetron 4 mg PO Q8H PRN pantoprazole 20 mg PO BID 2 weeks phenazopyridine (Azo Urinary Pain Relief) 199 mg (2 x 99.5 mg) PO TID PRN polyethylene glycol 3350 17 grams PO DAILY pravastatin 20 mg PO DAILY 90 days sucralfate (Carafate) 1 g PO QIDACHS syringe with needle (Parature Luer Lock Syringe with needle) As directed Tobacco use date assessed: 08/16/25 Fall risk assessment: 2 + Falls in past year Last assessed Fall Risk: 08/16/25 Dental Screening Dental Screen Date: 08/16/25 Did you have a dental visit in the last 12 months?: Yes Did you have a dental problem in the last 6 months where you did not have access to dental care?: No Was dental information given to patient?: Patient has dentist HPI HPI Comments History of Present Illness Details The patient is a 64-year-old female presenting with an annual physical examination focused on preventative care measures. The patient has a history of osteopenia, with a T-score of -2.2 in the lumbar spine, and is due for a bone density screening in 2025. She had colonoscopy February 2025. The patient has an allergy to phentermine, which causes palpitations, and she is currently taking multiple medications including Tylenol, vitamin C, calcium, vitamin D, folic acid, esomeprazole, gabapentin, metoprolol, ondansetron, and pravastatin. Her family history includes hypertension and diabetes in her mother, and pancreatic cancer in her father. She does not consume alcohol and has a history of smoking. She complains of some difficulty swallowing and would like an ultrasound of the thyroid. She does have microscopic hematuria and will have ultrasound of the kidneys. 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 Asthma Paget's disease Fibromyalgia Nontoxic multinodular goiter Osteoarthritis HTN (hypertension) Surgical History Hx of hernia repair History of esophagogastroduodenoscopy (EGD) H/O colonoscopy History of excision of mass (08/21/23) History of removal of laparoscopic gastric banding device History of cystoscopy History of lobectomy of thyroid Mass of right parotid gland H/O laparoscopic adjustable gastric banding Hx of lithotripsy History of dilation and curettage History of delivery Hx of tonsillectomy Hx of gastric bypass Family History Mother Diabetes HTN (hypertension) Father Pancreatic cancer Diabetes HTN (hypertension) Maternal Grandmother Myocardial infarction Cancer Brother Pancreatic cancer Sister Uterine cancer Social History Household Members: Family Housing: House Are you a primary child care sitter to a significant other at home: No Do you presently have visiting nurse or other home services: No Alcohol intake: never Patient Tobacco Use Status: Former Tobacco user Tobacco use type: Cigarette e-Cigarette/Vaping Use: Never Used Second Hand Smoke Exposure: No service: No Current occupational status: unemployed and disabled Sexual orientation: Straight/Heterosexual Gender identity: Female Cognitive needs: No Hearing needs: No Vision needs: Yes (glasses) Female Reproductive History Menstrual Age of Menarche: 10 Questionnaire Thrive Questionnaire Date Thrive assessed: 03/11/24 AUREA-7 AMB Questionnaire AUREA-7 Date AUREA - 7 assessed: 03/11/24 Source: Developed by Drs. Maxx Hayden, Raquel Cervantes, Jourdan Ruano and colleagues, with an educational milady from [email or web address]. Review of Systems Const All systems reviewed & are unremarkable except as noted in HPI and below Card Denies chest pain at rest, Denies chest pain with activity, Denies edema, Denies irregular heart rhythm, Denies claudication, Denies dyspnea, Denies dyspnea on exertion, Denies orthopnea, Denies paroxysmal nocturnal dyspnea and Denies slow heart rate Resp Denies cough, Denies dyspnea and Denies dyspnea on exertion GI Denies abdominal pain, Denies change in bowel habits, Denies excessive flatus, Denies nausea and Denies vomiting Denies urinary incontinence, Denies urinary hesitancy and Denies urinary urgency Physical exam (Primary Care) Vital Signs: Last Vital Signs Temp 97.1 F 08/16/25 09:07 Pulse 62 08/16/25 09:07 Resp 18 08/16/25 09:07 BP 98/60 08/16/25 09:07 Pulse Ox 97 08/16/25 09:07 Oxygen Delivery Method Room Air 08/16/25 09:07 BMI result Body Mass Index 28.6 Tobacco/Smoking Status: Tobacco use Status Tobacco use date assessed 08/16/25 08/16/25 09:10 Patient Tobacco Use Status Former Tobacco user 08/16/25 09:10 Tobacco use type Cigarette 08/16/25 09:10 e-Cigarette/Vaping Use Never Used 08/16/25 09:10 Thrive Assessment: Date of Thrive Assessment Date Thrive assessed 03/11/24 08/16/25 09:10 HENMT Head: Yes normal to inspection, Yes normocephalic and Yes atraumatic Ears: external ears normal Eyes General: appearance normal, both eyes and all related structures Eyelids: Yes eyelids normal Conjunctivae: conjunctivae normal Neck Neck: Yes normal visual inspection and Yes supple Resp Effort & Inspection: normal respiratory effort Auscultation: clear to auscultation bilaterally Cardio Jugular venous distension: no JVD Rate: regular rate Rhythm: regular rhythm Heart sounds: S1 normal heart sound present and S2 normal heart sound present GI Inspection: Yes normal to inspection Palpation (GI): Soft to palpation and nontender Auscultation: normal bowel sounds Skin General skin exam: no rashes or lesions noted Neuro General: no focal motor deficits Extrem General: Yes full ROM Psych Appearance: grossly normal Immunizations Boostrix Tdap 2.5 Lf unit-8 mcg-5 Lf/0.5 mL intramuscular syringe Performing Provider: Mary Jo Conteh MD [place]forming [place] [facility] Administered by: Ambar Poole CMA on 08/16/25 09:39 Dose Route Admin Location Dispensed Lot Number Expiration Date [facility] Property Utilization Officer 0.5 mL IM Left Deltoid 0.5 mL [id number] 10/07/27 [id number] xiao qu wu you Total Dispensed Waste 0.5 mL 0 % VIS Given Date VIS Provided VIS Publication Date 08/16/25 Single Vaccine 21 Eligibility Eligibility Date Funding Source Not [facility] Eligible 08/16/25 Private Coding Level of Care Code Est Pt Level 3 (29975) Est Pt Prev Care >65y(54649) Diagnoses Physical exam Z00.00 Microscopic hematuria R31.29 Time Spent (min) 33 Assessment & Plan Assessment & Plan (1) Physical exam: Comment: Has [place] [facility] Last colonoscopy about 8 years. To repeat in 10 years from [facility]. Due for eye exam. Last mammo 09/2023 Code(s): Z00.00 - Encounter for general adult medical examination without abnormal findings Category: Medical (2) Microscopic hematuria: Code(s): R31.29 - Other microscopic hematuria Category: Medical Plan Plan Patient was informed and verbally consented to the use of an ambient scribe for clinic note documentation during this visit. 1. Encounter for general adult medical examination without abnormal findings Z00.00 The patient is due for a tetanus vaccination, which is discussed for administration today. 2. Preventative Care: Mammography The patient is scheduled for a mammography in August, with the last one performed in August of the previous year. 3. Preventative Care: Bone Density Screening A bone density screening is scheduled for 2025 due to the patient's osteopenia. 4. Preventative Care: Colonoscopy A colonoscopy done February 2025 Orders: Orders US renal BI Today R31.29 - Other microscopic hematuria US thyroid Today E04.9 - Nontoxic goiter, unspecified Complete Blood Count Auto Diff Today D64.9 - Anemia, unspecified Vitamin D 25-OH Total Today E55.9 - Vitamin D deficiency, unspecified TDaP Immunization Today Z23 - Encounter for immunization Comprehensive [place]. Panel Fast Today I10 - Essential (primary) hypertension Thyroid Stimulating Hormone Today E04.9 - Nontoxic goiter, unspecified Lipid Panel Today E78.5 - Hyperlipidemia, unspecified Vitamin B12 and Folate Today E53.8 - Deficiency of other specified B group vitamins IRON PROFILE Today D64.9 - Anemia, unspecified Medications: Discontinued nitrofurantoin monohyd/m-cryst 100 mg (Macrobid) must administer with a meal/food Discontinued Reason: Patient Completed Course 100 mg PO BID 7 days 14 caps 0RF
[2025-08-16 09:07] VITALS: BP 98/60; PULSE 62; RESP 18; TEMP 36.2; O2SAT 97; BMI 28.6
--- OUTSIDE RECORDS SUMMARY | 2025-08-16 09:40 | XMS_ITS | Clinical Summary ---
Author Organization 175 [facility] Address [address] [place] [address] Phone Care Team Providers Care Food And Beverage Associate Name Role Phone Mary Jo Conteh MD Primary Care Provider [phone] Allergies No known active allergies Medications albuterol [...] 1 (one) time each day. Active ascorbic jxvp-ukaepsew-wk n 1,000 mg powder effervescent in packet [...] EDT - 06/27/2025 4:46 PM EDT Emergency [facility] Emergency [address] [place] [address] Saud Solano MD Lumbar strain, [...] Last Done Comments Breast Cancer Screening 1960 Colorectal Cancer Screening: Colonoscopy 1960 RSV Immunization Adult Patients (1 - Risk 60-74 years 1-dose series) 2018 DTaP,Tdap,and Td Vaccines (2 - Tdap) 12/31/2018 12/31/2008 Zoster Vaccines (2 of 2) 09/22/2020 07/28/2020 Cholesterol Screening (Lipid Panel) 10/21/2022 Hepatitis C Screening 10/21/2022 Medicare Annual [...] this topic Medical Devices Implanted Type Area Motor Vehicle Inspector Device Identifier Shelf Expiration Date Model / Serial / Lot Mesh Ventralex St 1.7in Sm [place] W/Strap - Sn/A - [id number] Implanted:Qty: 1 on 12/09/2024 by Griffin Loya MD at [facility] Surgical Mesh Sling Implants N/A: Umbilical CR BARD - DAVOL DIV [id number] / N/A / N/A Procedures Procedure Name [...] Signed Date: 06/27/2025 15:28 ET Workstation ID: [id number] Transcribed By: Self Edit Transcribed Date: 06/27/2025 [...] Signed Date: 06/27/2025 15:28 ET Workstation ID: [id number] Transcribed By: Self Edit Transcribed Date: 06/27/2025 [...] Signed Date: 06/27/2025 15:27 ET Workstation ID: [id number] Transcribed By: Self Edit Transcribed Date: 06/27/2025 [...] Signed Date: 06/27/2025 15:27 ET Workstation ID: [id number] Transcribed By: Self Edit Transcribed Date: 06/27/2025 15:26 ET us Saud Solano MD IMG XR PROCEDURES Final Res ult * (ABNORMAL) Comprehensive metabolic panel (03/25/2025 1:53 PM EDT) Pathologist [facility] Sodium 139 133 - [...] LAB CHEMISTRY METHOD 03/25/2025 2:37 PM EDT [facility] AST (SGOT) 22 10 - 42 unit/L LAB CHEMISTRY METHOD 03/25/2025 2:37 PM EDT [facility] ALT (SGPT) 17 10 - 60 unit/L LAB CHEMISTRY METHOD 03/25/2025 2:37 PM EDT [facility] Alkaline Phosphatase 102 42 - 121 unit/L LAB CHEMISTRY METHOD 03/25/2025 2:37 PM EDT [facility] Total Protein 7.6 6.0 - 8.0 g/dL LAB CHEMISTRY METHOD 03/25/2025 2:37 PM EDT [facility] Albumin 3.4 3.2 - 5.0 g/dL LAB CHEMISTRY METHOD 03/25/2025 2:37 PM EDT [facility] Total Bilirubin 0.3 0.0 - 1.4 mg/dL LAB CHEMISTRY METHOD 03/25/2025 2:37 PM EDT [facility] Blood Venous blood specimen / Unknown Venipuncture / Unknown 03/25/2025 1:53 PM EDT 03/25/2025 2:09 PM EDT us Allan Tucker DO LAB BLOOD ORDERABLES Final Result Performing Organization Address City/State/[facility] Co de Phone Number [facility] [address] [place] [address], from Last 3 Months or Most Recently Relevant to Health Maintenance Insurance [facility] MEDICARE Member Subscriber Plan / Payer (Ef fective 2023-Present) Name:Maura Travis Relation to Subscriber:Self Name:Maura Bansal Payer ID:[id number] Group ID:[id number] Type:Not on file Address: [facility] [address] [address] Advance Directives Documents on File Type Date Recorded Patient Truck Manager Expl anation Health Care Decision (hx) 05/24/2015 [...] DIRECTIVE Health Care Decision (hx) 05/21/2015 AD PRAJAPTAI DIRECTIVE Health Care Decision (hx) 05/21/2015 AD [...] currently active code status orders. Care Teams Food And Beverage Associate Relationship Specialty Start Date End Date Mary Jo Conteh MD 2 [facility] , [address] [facility] Physician Associ D/B/A: Karri Duarte In Internal Medicine CARLOS MANUEL Zeng PCP - General Internal Medicine 05/28/18
--- OUTSIDE RECORDS SUMMARY | 2025-08-16 09:40 | XMS_ITS | Clinical Summary ---
Author Organization [facility] Address [address] [place] [address] Phone Care Team Providers Care Humane Officer Name Role Phone Mary Jo Ascencio MD [...] file Medical Devices Not on file Insurance [facility] [address] [place] [address] ACO Member Subscriber Plan / Payer (Ef fective 2019-Present) Name:Maura Travis Relation to Subscriber:Self Name:Maura Travis Payer ID:[id number] Group ID:[id number] Type:Medicaid Address: [address] ACO [facility] ACO Member Subscriber Plan / Payer (Ef fective 2019-Present) Name:Maura Travis Relation to Subscriber:Self Name:Maura Travis Payer ID:[id number] Group ID:[id number] Type:Medicaid Address: [address] ACO Member Subscriber Plan / Payer (Ef fective 2019-Present) Name:Maura Travis Relation to Subscriber:Self Name:Maura Travis Payer ID:[id number] Group ID:[id number] Type:Medicaid Address: [address] [place] [address] ACO Member Subscriber Plan / Payer (Ef fective 2019-Present) Name:Maura Travis Relation to Subscriber:Self Name:Maura Travis Payer ID:[id number] Group ID:[id number] Type:Medicaid Address: [address] [place] [address] ACO Member Subscriber Plan / Payer (Ef fective 2019-Present) Name:Maura Travis Relation to Subscriber:Self Name:Maura Travis Payer ID:[id number] Group ID:[id number] Type:Medicaid Address: [address] ACO [facility] ACO Member Subscriber Plan / Payer (Ef fective 2019-Present) Name:Maura Travis Relation to Subscriber:Self Name:Maura Travis Payer ID:[id number] Group ID:[id number] Type:Medicaid Address: [address] [place] [address] ACO Member Subscriber Plan / Payer (Ef fective 2019-Present) Name:Maura Travis Relation to Subscriber:Self Name:Maura Travis Payer ID:[id number] Group ID:[id number] Type:Medicaid Address: [address] [place] [address] ACO Member Subscriber Plan / Payer (Ef fective 2019-Present) Name:Maura Travis Relation to Subscriber:Self Name:Maura Travis Payer ID:[id number] Group ID:[id number] Type:Medicaid Address: [address] [place] [address] Care Teams Humane Officer Relationship Specialty Start Date End Date Mary Jo Ascencio MD [address] [place] [address] PCP - General 06/04/19 Additional Source Comments The information contained in this document represents components of the legal health record. It is not the complete legal health record.[facility]
--- OUTSIDE RECORDS SUMMARY | 2025-08-16 09:40 | XMS_ITS | Data Portability ---
Author Organization [place] - [facility], Allergy Address [address] [address] Assessment Encounter Date Assessment Date Assessment LastModified [...] recorded. Imaging MRI, neck, w/wo contrast - guatemalan speaker, hx of right parotidecto my for [...] ast No observ ation record ed. [email or web address] [address], [address], 10/09/2024 09:09:01 Result Notes None recorded. 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 4 13:58:22 Problem Notes None recorded. [...] Updated DateTime 07/08/2024 152.4 cm 29.3 kg/m2 75649.86 g Marc Odonnell [place] - [facility] 07/08/2024 13:41:16 Social History None recorded. Functional Status None recorded. Mental Status None recorded. Family History Nothing Reported. Medical History No medical history recorded. Gynecological HistoryNo gynecological history recorded. Obstetrics History GPAL:G 0 P 0 0 0 0 Past Encounters Encounter ID Performer Location Encounter Start Date Encounter Closed Date Diagnosis/Indication Diagnosis SNOMED-CT Code Diagnosis ICD10 Code Diagnosis IMO Codes Diagnosis Note [id number] CHRIS WOO MD [facility] [address] [address] 07/08/2024 13:31:55 07/08/2024 14:01:53 History of malignant neoplasm of parotid gland 7951695795 95694 Z85.818 Health Concerns Section Related Observation LastModified by Organization Detai ls LastModified Time None Recorded Concern Status LastModified by Organization Details LastModified Time None Recorded Advance Directives Directive None Recorded Payers Insurance Date Sequence Insurance Name Policy Number Policy Madrigal Covered Member ID Madrigal Member ID Guarantor Name 08/03/2024 1 [facility] [employer] - [facility] HEALTH [facility]AN ([facility] HMO) Maura Travis [id number] Maura Travis 07/15/2024 1 [facility] - DOS ON OR AFTER 2023 - MEDICARE ADVANTAGE [place] (MEDICARE REPLACEMENT/AD VANTAGE - O) Maura Travis [id number] Maura Travis 08/03/2024 1 [facility] - DOS ON OR AFTER 2023 - [facility] (MEDICARE REPLACEMENT/AD VANTAGE - HMO) Maura Travis [id number] Maura Travis Notes Date Note Type Note Provider Name and Address Organization Details Recorded Time 07/08/2024 text/html guatemalan - IPADhx of right deep lobe parotid [...] for a follicular nodule CHRIS WOO MD [address] [place] [address], [place], [address], [place] - [facility] 07/08/2024 14:01:47 OBGyn Episode No OBEpisode recorded.
== END 2025-08-16 09:46 | disposition home or self-care (01) ==
LOC: HO.HMCH 09:04
PROVIDERS: PCP Internal Medicine; Visit Provider Internal Medicine
DX: Z00.00 Encounter for general adult medical examination without abnormal findings (principal); R31.29 Other microscopic hematuria; Z23 Encounter for immunization

== ENCOUNTER → 2025-08-16 09:04 | Outpatient (BNVA) | payer OTHER, SELFPAY | PROVIDERS: PCP Internal Medicine; Visit Provider Internal Medicine | DX: Z00.00 Encounter for general adult medical examination without abnormal findings (principal); R31.29 Other microscopic hematuria; I10 Essential (primary) hypertension; E11.9 Type 2 diabetes mellitus without complications; E04.9 Nontoxic goiter, unspecified; D64.9 Anemia, unspecified; E55.9 Vitamin D deficiency, unspecified; E78.5 Hyperlipidemia, unspecified; E53.8 Deficiency of other specified B group vitamins; Z23 Encounter for immunization | CPT/HCPCS: 90471; 90715; 99212; 99397 ==

== ENCOUNTER 2025-09-03 10:39 | Outpatient (AMB) | payer OTHER, SELFPAY ==
--- NOTE | 2025-09-03 10:45 | A.OFFVIS_ITS ---
Vital Signs 09/03/25 10:47 Height 5 ft Weight 151 lb BMI 29.5 BP 96/49 L Blood Pressure Location Lt radial Position Sitting Pulse 55 Intake Visit Reasons: f/u abdominal pains Intake Note: Maura presents in the office as a follow up. CC: pains in the stomach that go to her back and in her ovaries - puking and has blood in her urine and states she has pains with chills that come and go. Pains in the stomach come with sweats and she did go to the ED. States that she is not sure if she has an ulcer or hernia but it feels like it has gotten worse. 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 Georges HGb has been chronically stable at around 10 g/dl EGD/COLO: 04/10 Endoscopy Findings: esophagitis retained suture Colonoscopy Findings: colon polyp internal hemorrhoids Tubular adenoma--path IMAGING: CT 11/09 hepatomegaly and prominent CBD ?jejuno jejunal intussussception MRCP 06/10-- nml EGD/[place]: 03/17/25: Endoscopy Findings: anastomotic ulcer hiatal hernia Colonoscopy Findings: colon polyps internal hemorrhoids Path: pos for H pylori inflammatory polyps given quadruple therapy INTERIM: she has ongoing epigastric tenderness she has been having hematuria and seeing Dr Sheth for this also has discomfort in the suprapubic area appetite is fair she is requesting nephro referral due to her lower back pain and urine sx EXAM: GENERAL: The patient is well developed and nontoxic. VITAL SIGNS:see workflow HEENT: Nonicteric sclerae, PERRLA, EOMI. Oropharynx clear. Moist mucous membranes. Conjunctivae appear well perfused. No thyroid mass. CHEST: Chest wall is nontender. HEART: Regular rate and rhythm without murmurs. LUNGS: Clear to auscultation bilaterally. ABDOMEN: Soft, positive bowel sounds, mild tender epigastrium no organomegaly. flank tenderness and suprpaubic tenderness SKIN: No rash, no excessive bruising, petechiae, or purpura. NEUROLOGIC: Cranial nerves II-XII intact without motor/sensory deficit. 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 Asthma Paget's disease Fibromyalgia Nontoxic multinodular goiter Osteoarthritis HTN (hypertension) Surgical History Hx of hernia repair History of esophagogastroduodenoscopy (EGD) H/O colonoscopy History of excision of mass (08/21/23) History of removal of laparoscopic gastric banding device History of cystoscopy History of lobectomy of thyroid Mass of right parotid gland H/O laparoscopic adjustable gastric banding Hx of lithotripsy History of dilation and curettage History of delivery Hx of tonsillectomy Hx of gastric bypass Family History Mother Diabetes HTN (hypertension) Father Pancreatic cancer Diabetes HTN (hypertension) Maternal Grandmother Myocardial infarction Cancer Brother Pancreatic cancer Sister Uterine cancer Social History Household Members: Family Housing: House Are you a primary school child care attendant to a significant other at home: No Do you presently have visiting nurse or other home services: No Alcohol intake: never Patient Tobacco Use Status: Former Tobacco user Tobacco use type: Cigarette e-Cigarette/Vaping Use: Never Used Second Hand Smoke Exposure: No service: No Current occupational status: unemployed and disabled Sexual orientation: Straight/Heterosexual Gender identity: Female Cognitive needs: No Hearing needs: No Vision needs: Yes (glasses) Female Reproductive History Menstrual Age of Menarche: 10 Physical Exam Vital Signs: Last Vital Signs Pulse 55 09/03/25 10:47 BP 96/49 L 09/03/25 10:47 BMI result Body Mass Index 29.5 Assessment & Plan Assessment & Plan (1) Microscopic hematuria: Comment: History of interstitial cystitis Code(s): R31.29 - Other microscopic hematuria Category: Medical Plan: as above (2) Hematuria: Code(s): R31.9 - Hematuria, unspecified Category: Medical Plan: as above Orders: Orders UA CC w/rflx Micro + Cult Today R30.0 - Dysuria Referrals Nephrology Referral R31.29 - Other microscopic hematuria, R31.9 - Hematuria, unspecified Medications: Refilled sucralfate (Carafate) 1 g PO QIDACHS 180 tabs 2RF Discontinued bismuth subsalicylate Discontinued Reason: Doctor's Order 2 tabs PO QID 14 days 112 tabs 0RF Coding Level of Care Code Est Pt Level 3 (01026) Diagnoses Microscopic hematuria R31.29 Hematuria R31.9
[2025-09-03 10:47] VITALS: BP 96/49; PULSE 55; BMI 29.5
--- OUTSIDE RECORDS SUMMARY | 2025-09-03 13:05 | XMS_ITS | Data Portability ---
Author Organization [place] - [facility], Allergy Address [address] [address] Assessment Encounter Date Assessment Date Assessment LastModified [...] recorded. Imaging MRI, neck, w/wo contrast - sami speaker, hx of right parotidecto my for [...] ast No observ ation record ed. [email or web address] [address], [address], 10/09/2024 09:09:01 Result Notes None recorded. 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, [address] , [facility] - [facility] 4 13:58:22 Problem Notes None [...] Updated DateTime 07/08/2024 152.4 cm 29.3 kg/m2 23618.86 g Marc Odonnell [place] - [facility] 07/08/2024 13:41:16 Social History None [...] ICD10 Code Diagnosis IMO Codes Diagnosis Note [id number] CHRIS WOO MD [facility] [address] [address] 07/08/2024 13:31:55 07/08/2024 14:01:53 History of malignant neoplasm of parotid gland 2512654004 95459 Z85.818 Health Concerns Section Related Observation LastModified by Organization Detai ls LastModified Time None Recorded Concern Status LastModified by Organization Details LastModified Time None Recorded Advance Directives Directive None Recorded Payers Insurance Date Sequence Insurance Name Policy Number Policy Madrigal Covered Member ID Madrigal Member ID Guarantor Name 08/03/2024 1 [facility] [employer] - [facility] HE[facility] ([facility] H[facility]) Maura Travis [id number] Maura Travis 07/15/2024 1 [facility] - DOS ON OR AFTER 2023 - MEDICARE ADVANTAGE [place] (MEDICARE REPLACEMENT/AD VANTAGE - O) Maura Travis [id number] Maura Travis 08/03/2024 1 [facility] - DOS ON OR AFTER 2023 - [facility] C[facility] (MEDICARE REPLACEMENT/AD VANTAGE - HMO) Maura Travis [id number] Maura Travis Notes Date Note Type Note Provider Name and Address Organization Details Recorded Time 07/08/2024 text/html sami - IPADhx of right deep lobe parotid [...] for a follicular nodule CHRIS WOO MD [address] [place] [address], [place], [address], [place] - [facility] 07/08/2024 14:01:47 OBGyn Episode No OBEpisode recorded.
== END 2025-09-03 11:21 | disposition home or self-care (01) ==
LOC: HO.HGI 10:40
PROVIDERS: PCP Internal Medicine; Visit Provider Internal Medicine Gastroenterology
DX: R31.29 Other microscopic hematuria (principal); R31.9 Hematuria, unspecified
CPT/HCPCS: 99213

== ENCOUNTER 2025-09-03 10:39 | Outpatient (REF) | payer OTHER, SELFPAY ==
[2025-09-03 12:25] LABS: Appearance Urine Clear; Glucose Urine UA Negative (Negative); PH 5.5 (5.0-9.0); Specific Gravity - Urine 1.015 (1.005-1.025); UMIC TRIGGER UACC YES
== END 2025-09-03 10:40 | disposition home or self-care (01) ==
LOC: HO.LAB 10:39
PROVIDERS: PCP Internal Medicine; Visit Provider Internal Medicine Gastroenterology
DX: R31.29 Other microscopic hematuria (principal); R30.0 Dysuria
CPT/HCPCS: 81001; 99212

== ENCOUNTER 2025-09-10 11:05 | Outpatient (AMB) | payer OTHER, SELFPAY ==
--- NOTE | 2025-09-10 11:15 | HO.NEPHOV ---
Vital Signs 09/10/25 11:17 Height 5 ft Weight 151 lb BMI 29.5 BP 110/80 Blood Pressure Location Lt brachial Position Sitting Pulse 56 Pulse Source Pulse Oximeter Pulse Oximetry (%) 97 Oxygen Delivery Method Room Air Intake Visit Reasons: Hematuria & assessment, conf. Scientific Publications Editor Required: Yes Scientific Publications Editor Language: Open Hearth Door Liner Name: Sowmya [id number] Accompanied by: Self / Same As Patient Allergies phentermine Allergy (Intermediate, Verified 09/10/25 11:18) Palpitations Medication List - Last Reconciled 09/10/25 by Barry Vasquez MD acetaminophen 1,000 mg (2 x 500 mg) PO Q8H PRN albuterol sulfate 2.5 mg (3 mL) inhalation RQ4H WHILE AWAKE albuterol sulfate 90 mcg/actuation 2 puffs inhalation Q6H PRN alcohol swabs (Alcohol Prep Pads) 1 pad topical TID 30 days ascorbic acid (vitamin C) (Vitamin C) 500 mg PO BID blood sugar diagnostic (FreeStyle Lite Strips) to test 2 to 3 times a day as directed blood-glucose meter (FreeStyle Lite Meter kit) As directed calcium citrate 500 mg PO BID cholecalciferol (vitamin D3) 1,250 mcg PO QWEEK esomeprazole magnesium 40 mg PO DAILY folic acid 1 mg PO DAILY 90 days gabapentin 300 mg PO DAILY hyoscyamine sulfate 0.125 mg PO BID-QID PRN incontinence pad, liner, disp As directed lancets (FreeStyle Lancets) Use 1 lancet once a day lancets (Pure Comfort Safety Lancets) As directed metoprolol succinate ER 25 mg PO DAILY 90 days nebulizers (AeroEclipse II Nebulizer) As directed nitrofurantoin monohyd/m-cryst 100 mg (Macrobid) 100 mg PO BID 7 days ondansetron 4 mg PO Q8H PRN pantoprazole 20 mg PO BID 2 weeks phenazopyridine (Azo Urinary Pain Relief) 199 mg (2 x 99.5 mg) PO TID PRN polyethylene glycol 3350 17 grams PO DAILY pravastatin 20 mg PO DAILY 90 days sucralfate (Carafate) 1 g PO QIDACHS syringe with needle (iNovo Broadband Luer Lock Syringe with needle) As directed Do you need a note to return to daycare/school/sports/work: No HPI Comments Details: - The patient is a 65-year-old female referred for hematuria. - Hematuria for one year, urine brown. She has not seen red urine. Urinalysis showed microscopic hematuria. History of interstitial cystitis She has been followed by Urology. In has undergone extensive workup including cystoscopy. Two weeks ago she underwent a CAT scan in [facility] and both kidneys appeared normal. She has a Urology evaluation in the next few weeks. - No pain, nausea, vomiting, or kidney stones. - Family history of kidney disease, father and sister had kidney disease but no history of end stage renal disease or gross hematuria. - she also has history of Hypertension and asthma, controlled. 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 Asthma Paget's disease Fibromyalgia Nontoxic multinodular goiter Osteoarthritis HTN (hypertension) Surgical History Hx of hernia repair History of esophagogastroduodenoscopy (EGD) H/O colonoscopy History of excision of mass (08/21/23) History of removal of laparoscopic gastric banding device History of cystoscopy History of lobectomy of thyroid Mass of right parotid gland H/O laparoscopic adjustable gastric banding Hx of lithotripsy History of dilation and curettage History of delivery Hx of tonsillectomy Hx of gastric bypass Family History Mother Diabetes HTN (hypertension) Father Pancreatic cancer Diabetes HTN (hypertension) Maternal Grandmother Myocardial infarction Cancer Brother Pancreatic cancer Sister Uterine cancer Social History Household Members: Family Housing: House Are you a primary child care center administrator to a significant other at home: No Do you presently have visiting nurse or other home services: No Alcohol intake: never Patient Tobacco Use Status: Former Tobacco user Tobacco use type: Cigarette e-Cigarette/Vaping Use: Never Used Second Hand Smoke Exposure: No service: No Current occupational status: unemployed and disabled Sexual orientation: Straight/Heterosexual Gender identity: Female Cognitive needs: No Hearing needs: No Vision needs: Yes (glasses) Female Reproductive History Menstrual Age of Menarche: 10 Review of Systems Const Denies fever(s) and Denies weight loss Card Denies chest pain Resp Denies cough and Denies hemoptysis GI Denies abdominal pain, Denies diarrhea and Denies nausea Musc Denies back pain Neuro Denies focal weakness Physical Exam Vital Signs: Last Vital Signs Pulse 56 09/10/25 11:17 BP 110/80 09/10/25 11:17 Pulse Ox 97 09/10/25 11:17 Oxygen Delivery Method Room Air 09/10/25 11:17 BMI result Body Mass Index 29.5 Comfortable Neck supple no JVD. Lungs entry equal no rales. Heart S1-S2 heard no gallop or rub. Abdomen soft nontender. Neuro alert awake oriented. No asterixis. Extremities no edema. Results Reviewed Results Reviewed: Labs reviewed UA showed hematuria by dipstick. Few RBCs. No protein by dipstick Nephrology Results: Urine Protein, (Neg-Trace) Negative mg/dL 09/03/25 Assessment & Plan Assessment & Plan (1) Microscopic hematuria: Code(s): R31.29 - Other microscopic hematuria Category: Medical Plan Most likely due to underlying interstitial cystitis. She has no significant proteinuria. In the past renal function was normal. Recent CT scan showed normal-appearing kidneys. I will obtain a baseline serological workup including ANCA, anti-GBM and serum complements. Check urine for protein creatinine ratio. Further workup will be determined by the outcome of the baseline investigations. I have reassured her and encouraged her to follow up with Urology as well. Orders: Orders Complete Blood Count Auto Diff Today R31.9 - Hematuria, unspecified Comprehensive Met. Panel Today R31.9 - Hematuria, unspecified Creatinine Urine Today R31.9 - Hematuria, unspecified Parathyroid Hormone Intact Today R31.9 - Hematuria, unspecified Uric Acid Today R31.9 - Hematuria, unspecified Neutrophil Cytoplasma Ab Today R31.9 - Hematuria, unspecified Complement C4 Today R31.9 - Hematuria, unspecified Vitamin D 25-OH Total Today R31.9 - Hematuria, unspecified UA and rflx microscopic Today R31.9 - Hematuria, unspecified Total Protein Urine Random Today R31.9 - Hematuria, unspecified RAMONA Reflex Titer and Pattern Today R31.9 - Hematuria, unspecified Anti Glomerular Basement Memb Today R31.9 - Hematuria, unspecified Complement C3 Today R31.9 - Hematuria, unspecified Protein Electrophoresis, Serum Today R31.9 - Hematuria, unspecified Coding Level of Care Code New Pt Level 4 (82017) Diagnoses Microscopic hematuria R31.29
[2025-09-10 11:17] VITALS: BP 110/80; PULSE 56; O2SAT 97; BMI 29.5
--- OUTSIDE RECORDS SUMMARY | 2025-09-10 13:23 | XMS_ITS | Clinical Summary ---
Author Organization [address] [facility] Address [address] [place] [address] Phone Care Team Providers Care Pressing Department Supervisor Name Role Phone Mary Jo Conteh MD Primary Care Provider [phone] Allergies No known active allergies Medications albuterol [...] 1 (one) time each day. Active ascorbic qpoj-kcvtubpx-xh n 1,000 mg powder effervescent in packet [...] EDT Emergency [facility] Emergency [address] [place] [address] Joseph Arango MD Peptic ulcer (Primary Dx); Abdominal pain, unspecified abdominal location; Hematuria, unspecified type Discharge Disposition: Home or Self Care 06/27/2025 12:20 PM EDT - 06/27/2025 4:46 PM EDT Emergency [facility] Emergency [address] [place] [address] Saud Solano MD Lumbar strain, initial encounter [...] 9:00 AM EDT Office Visit Gastroenterology - [address] [facility] [address] [facility] [address] [place] [address] Taniya Galdamez NP [address] [facility] [address] [place] [address] Health Maintenance Due Date Last Done Comments [...] this topic Medical Devices Implanted Type Area Equipment Operator Intermodal Yard Device Identifier Shelf Expiration Date Model / Serial / Lot Mesh Ventralex St 1.7in Sm [place] W/Strap - Sn/A - [id number] Implanted:Qty: 1 on 12/09/2024 by Griffin Loya MD at [facility] Surgical Mesh Sling Implants N/A: Umbilical CR BARD - DAVOL DIV [id number] / N/A / N/A Procedures Procedure Name [...] and culture (09/01/2025 2:31 PM EDT) Specific [place] Urine 1.015 1.003 - 1.030 LAB URINALYSIS - AUTOMATED METHOD 09/01/2025 3:02 PM [facility] pH, Urine 6.0 5.0 - 8.0 pH LAB URINALYSIS - AUTOMATED METHOD 09/01/2025 3:02 PM [facility] Leukocytes, Urine Negative Negative LAB URINALYSIS - AUTOMATED METHOD 09/01/2025 3:02 PM [facility] Nitrite, Urine Negative Negative LAB URINALYSIS - AUTOMATED METHOD 09/01/2025 3:02 PM [facility] Protein, Urine Negative <=Trace mg/dL LAB URINALYSIS - AUTOMATED METHOD 09/01/2025 3:02 PM [facility] Glucose, Urine Negative Negative mg/dL LAB URINALYSIS - AUTOMATED METHOD 09/01/2025 3:02 PM [facility] Ketones, Urine Negative Negative mg/dL LAB URINALYSIS - AUTOMATED METHOD 09/01/2025 3:02 PM [facility] Urobilinogen, Urine 0.2 0.2 - 1.0 mg/dL LAB URINALYSIS - AUTOMATED METHOD 09/01/2025 3:02 PM EDT [facility] Bilirubin, Urine Negative Negative LAB URINALYSIS - AUTOMATED METHOD 09/01/2025 3:02 PM EDT [facility] Blood, Urine Trace(A) Negative LAB URINALYSIS - AUTOMATED METHOD 09/01/2025 3:02 PM T [facility] RBC, Urine 5.2(H) 0 - 4 /HPF LAB URINALYSIS - AUTOMATED METHOD 09/01/2025 3:02 PM [facility] WBC, Urine 0.4 0 - 4 /HPF LAB URINALYSIS - AUTOMATED METHOD 09/01/2025 3:02 PM [facility] Squamous Epithelial, Urine 15 0 - 60 /LPF LAB URINALYSIS - AUTOMATED METHOD 09/01/2025 3:02 PM [facility] Bacteria, Urine Negative Negative /HPF LAB URINALYSIS - AUTOMATED METHOD 09/01/2025 3:02 PM [facility] Hyaline Casts, Urine 0.0 0 - 3 /LPF LAB URINALYSIS - AUTOMATED METHOD 09/01/2025 3:02 PM [facility] Urine Urine specimen obtained by clean catch procedure / Unknown Non-blood Collection / Unknown 09/01/2025 2:31 PM EDT 09/01/2025 2:41 PM EDT us Joseph Arango MD LAB URINE ORDERABLES Final Resul t [facility] [address] [place] [address], * [place] urine culture tube (09/01/2025 2:31 PM EDT) Extra Tube Hold for add-ons. 09/01/2025 4:01 PM EDT [facility] Comment:Auto resulted. Urine Urine specimen obtained by clean catch procedure / Unknown Non-blood Collection / Unknown 09/01/2025 2:31 PM EDT 09/01/2025 2:41 PM EDT us Joseph Arango MD LAB URINE ORDERABLES Final Resul t [facility] [address] [place] [address], [place] [phone] * CBC auto differential (09/01/2025 2:23 PM EDT) WBC 6.8 4.8 - 10.8 K/mcL LAB HEMETOLOGY METHOD 09/01/2025 2:56 PM EDT [facility] RBC 3.90 3.80 - 4.80 M/mcL LAB HEMETOLOGY METHOD 09/01/2025 2:56 PM EDT [facility] Hemoglobin 11.7 11.5 - 16.0 g/dL LAB HEMETOLOGY METHOD 09/01/2025 2:56 PM EDT [facility] Hematocrit 36.1 35.0 - 47.0 % LAB HEMETOLOGY METHOD 09/01/2025 2:56 PM EDT [facility] MCV 93.0 79.0 - 98.0 FL LAB HEMETOLOGY METHOD 09/01/2025 2:56 PM EDT [facility] MCH 30.2 27.0 - 32.0 pcg LAB HEMETOLOGY METHOD 09/01/2025 2:56 PM EDT [facility] MCHC 32.4 32.0 - 37.0 g/dL LAB HEMETOLOGY METHOD 09/01/2025 2:56 PM EDT [facility] RDW 13.8 11.0 - 15.0 % LAB HEMETOLOGY METHOD 09/01/2025 2:56 PM EDT [facility] Platelets 309 130 - 400 K/mcL LAB HEMETOLOGY METHOD 09/01/2025 2:56 PM [facility] MPV 10.1 7.0 - 11.0 FL LAB HEMETOLOGY METHOD 09/01/2025 2:56 PM [facility] NRBC 0.0 <1.0 % LAB HEMETOLOGY METHOD 09/01/2025 2:56 PM [facility] NRBC Absolute 0.00 <0.10 K/mcL LAB HEMETOLOGY METHOD 09/01/2025 2:56 PM [facility] Neutrophils Relative 70.2 % LAB HEMETOLOGY METHOD 09/01/2025 2:56 PM [facility] Lymphocytes Relative 21.0 % LAB HEMETOLOGY METHOD 09/01/2025 2:56 PM [facility] Monocytes Relative 6.5 % LAB HEMETOLOGY METHOD 09/01/2025 2:56 PM [facility] Eosinophils Relative 1.5 % LAB HEMETOLOGY METHOD 09/01/2025 2:56 PM [facility] Basophils Relative 0.7 % LAB HEMETOLOGY METHOD 09/01/2025 2:56 PM [facility] Immature Granulocytes Relative 0.1 % LAB HEMETOLOGY METHOD 09/01/2025 2:56 PM [facility] Neutrophils Absolute 4.78 1.50 - 7.00 K/mcL LAB HEMETOLOGY METHOD 09/01/2025 2:56 PM EDT [facility] Lymphocytes Absolute 1.43 1.00 - 5.00 K/mcL LAB HEMETOLOGY METHOD 09/01/2025 2:56 PM EDT [facility] Monocytes Absolute 0.44 0.20 - 1.00 K/mcL LAB HEMETOLOGY METHOD 09/01/2025 2:56 PM [facility] Eosinophils Absolute 0.10 0.00 - 0.50 K/mcL LAB HEMETOLOGY METHOD 09/01/2025 2:56 PM EDT [facility] Basophils Absolute 0.05 0.00 - 0.20 K/[facility] LAB HEMETOLOGY METHOD 09/01/2025 2:56 PM EDT [facility] Immature Granulocytes Absolute 0.01 0.00 - 0.03 K/[facility] LAB HEMETOLOGY METHOD 09/01/2025 2:56 PM EDT [facility] Blood Venous blood specimen / Unknown Venipuncture / Unknown 09/01/2025 2:23 PM EDT 09/01/2025 2:42 PM EDT us Joseph Arango MD LAB BLOOD ORDERABLES Final Resul t Performing Organization Address [facility] de Phone Number [facility] [address] [place] [address], [place] [phone] * Lipase (09/01/2025 2:23 PM EDT) Pathologist [facility] Lipase 40 13 - 75 unit/L LAB CHEMISTRY METHOD 09/01/2025 3:28 PM EDT [facility] Blood Venous blood specimen / Unknown Venipuncture / Unknown 09/01/2025 2:23 PM EDT 09/01/2025 2:42 PM EDT us Joseph Arango MD LAB BLOOD ORDERABLES Final Resul t Performing Organization Address City/[facility]/ZIP Co de Phone Number [facility] [address] [place] [address], [place] [phone] * (ABNORMAL) Comprehensive metabolic panel (09/01/2025 2:23 PM EDT) Pathologist [facility] Sodium 139 133 - 145 mmol/L LAB CHEMISTRY METHOD 09/01/2025 3:28 PM EDT [facility] Potassium 4.5 3.5 - 5.5 mmol/L LAB CHEMISTRY METHOD 09/01/2025 3:28 PM EDT [facility] Chloride 107 96 - 110 mmol/L LAB CHEMISTRY METHOD 09/01/2025 3:28 PM [facility] CO2 28 21 - 32 mmol/L LAB CHEMISTRY METHOD 09/01/2025 3:28 PM [facility] Anion Gap 4 3 - 11 LAB CHEMISTRY METHOD 09/01/2025 3:28 PM [facility] Glucose 103(H) 70 - 100 mg/dL LAB CHEMISTRY METHOD 09/01/2025 3:28 PM [facility] BUN 21 5 - 25 mg/dL LAB CHEMISTRY METHOD 09/01/2025 3:28 PM [facility] Creatinine 0.86 0.50 - 1.10 mg/dL LAB CHEMISTRY METHOD 09/01/2025 3:28 PM [facility] eGFR 75 >=60 mL/min/1. 73m2 LAB CHEMISTRY METHOD 09/01/2025 3:28 PM [facility] Comment:Calculation based on the Chronic Kidney Disease Epidemiology Collaboration (CKD-EPI) equation refit without adjustment for race. BUN/Creatinine Ratio 24.4 LAB CHEMISTRY METHOD 09/01/2025 3:28 PM [facility] Calcium 9.8 8.5 - 10.5 mg/dL LAB CHEMISTRY METHOD 09/01/2025 3:28 PM [facility] AST (SGOT) 22 10 - 42 unit/L LAB CHEMISTRY METHOD 09/01/2025 3:28 PM [facility] ALT (SGPT) 29 10 - 60 unit/L LAB CHEMISTRY METHOD 09/01/2025 3:28 PM [facility] Alkaline Phosphatase 89 42 - 121 unit/L LAB CHEMISTRY METHOD 09/01/2025 3:28 PM [facility] Total Protein 7.0 6.0 - 8.0 g/dL LAB CHEMISTRY METHOD 09/01/2025 3:28 PM [facility] Albumin 3.5 3.2 - 5.0 g/dL LAB CHEMISTRY METHOD 09/01/2025 3:28 PM EDT [facility] Total Bilirubin 0.3 0.0 - 1.4 mg/dL LAB CHEMISTRY METHOD 09/01/2025 3:28 PM EDT [facility] Blood Venous blood specimen / Unknown Venipuncture / Unknown 09/01/2025 2:23 PM EDT 09/01/2025 2:42 PM EDT us Joseph Arango MD LAB BLOOD ORDERABLES Final Resul t [facility] [address] [place] [address], [place] [phone] * XR Lumbar Spine 2-3 Views (06/27/2025 [...] Signed Date: 06/27/2025 15:28 ET Workstation ID: [id number] Transcribed By: Self Edit Transcribed Date: 06/27/2025 [...] Signed Date: 06/27/2025 15:28 ET Workstation ID: [id number] Transcribed By: Self Edit Transcribed Date: 06/27/2025 [...] Signed Date: 06/27/2025 15:27 ET Workstation ID: [id number] Transcribed By: Self Edit Transcribed Date: 06/27/2025 [...] Signed Date: 06/27/2025 15:27 ET Workstation ID: [id number] Transcribed By: Self Edit Transcribed Date: 06/27/2025 15:26 ET us Saud Solano MD IMG XR PROCEDURES Final Res ult from Last 3 Months Insurance [facility] MEDICARE Member Subscriber Plan / Payer (Ef fective 2023-Present) Name:AngyMaura Relation to Subscriber:Self Name:AngyMaura Schroeder Payer ID:[id number] Group ID:[id number] Type:Not on file Address: [address] [address] Advance Directives Documents on File Type Date Recorded Patient Setup Technician Expl anation Health Care Decision (hx) 05/24/2015 [...] currently active code status orders. Care Teams Pressing Department Supervisor Relationship Specialty Start Date End Date Mary Jo Conteh MD [address] [place] [address] , [address] [facility] D/B/A: [facility] [place] PCP - General Internal Medicine 05/28/18
--- OUTSIDE RECORDS SUMMARY | 2025-09-10 13:23 | XMS_ITS | Clinical Summary ---
Author Organization [facility] Address [address] [place] [address] Phone Care Team Providers Care Dynamite Reclaimer Name Role Phone Mary Jo Ascencio MD [...] file Medical Devices Not on file Insurance [facility] [employer] [address] [place] [address] [place] [address] ACO Member Subscriber Plan / Payer (Ef fective 2019-Present) Name:Maura Travis Relation to Subscriber:Self Name:Maura Travis Payer ID:[id number] Group ID:[id number] Type:Medicaid Address: [address] ACO [facility] [employer] Member Subscriber Plan / Payer (Ef fective 2019-Present) Name:Maura Travis Relation to Subscriber:Self Name:Maura Travis Payer ID:[id number] Group ID:[id number] Type:Medicaid Address: [address] ACO Member Subscriber Plan / Payer (Ef fective 2019-Present) Name:Maura Travis Relation to Subscriber:Self Name:Maura Travis Payer ID:[id number] Group ID:[id number] Type:Medicaid Address: [address] [place] [address] [place] [address] ACO Member Subscriber Plan / Payer (Ef fective 2019-Present) Name:Maura Travis Relation to Subscriber:Self Name:Maura Travis Payer ID:[id number] Group ID:[id number] Type:Medicaid Address: [address] [place] [address] [place] [address] ACO Member Subscriber Plan / Payer (Ef fective 2019-Present) Name:Maura Travis Relation to Subscriber:Self Name:Maura Travis Payer ID:[id number] Group ID:[id number] Type:Medicaid Address: [address] ACO [facility] [employer] Member Subscriber Plan / Payer (Ef fective 2019-Present) Name:Maura Travis Relation to Subscriber:Self Name:Maura Travis Payer ID:[id number] Group ID:[id number] Type:Medicaid Address: [address] [place] [address] [place] [address] ACO Member Subscriber Plan / Payer (Ef fective 2019-Present) Name:Maura Travis Relation to Subscriber:Self Name:Maura Travis Payer ID:[id number] Group ID:[id number] Type:Medicaid Address: [address] [place] [address] [place] [address] ACO Member Subscriber Plan / Payer (Ef fective 2019-Present) Name:Maura Travis Relation to Subscriber:Self Name:Maura Tarvis Payer ID:[id number] Group ID:[id number] Type:Medicaid Address: [address] ACO Care Teams Dynamite Reclaimer Relationship Specialty Start Date End Date Mary Jo Ascencio MD [address] [place] [address] PCP - General 06/04/19 Additional Source Comments The information contained in this document represents components of the legal health record. It is not the complete legal health record.[facility]
== END 2025-09-10 11:35 | disposition home or self-care (01) ==
LOC: HO.HKA 11:06
PROVIDERS: PCP Internal Medicine; Visit Provider Internal Medicine Hypertension Specialist
DX: R31.29 Other microscopic hematuria (principal)
CPT/HCPCS: 99204

== ENCOUNTER → 2025-09-10 11:05 | Outpatient (BNVA) | payer OTHER, SELFPAY | PROVIDERS: PCP Internal Medicine; Visit Provider Internal Medicine Hypertension Specialist | DX: R31.29 Other microscopic hematuria (principal) | CPT/HCPCS: 99202 ==

== ENCOUNTER 2025-09-10 11:50 | Outpatient (REF) | payer OTHER, SELFPAY ==
[2025-09-10 13:28] LABS: MANUAL DIFF FLAG NO
[2025-09-10 13:36] LABS: Hematocrit 35.1 % (37.0-47.0); Hemoglobin 11.3 g/dl (12.0-16.0); Imm Gran Abs Auto 0.03 X10*3/uL (0.00-0.03); Imm Gran Pct Auto 0.5 % (0.0-0.4); Lymphocytes Absolute Auto 1.5 X10*3/uL (1.2-4.9); Mean Corpuscular HGB Conc 32.2 g/dl (31.0-35.0); Mean Corpuscular Hemoglobin 29.7 pg (27.0-33.0); Mean Corpuscular Volume 92.4 fL (80.0-98.0); NRBC Abs Auto 0.000 X10*3/uL (0.0-0.012); NRBC Pct Auto 0.0 /100WBC (0.0-0.2); Platelet Count 280 X10*3/uL (160-400); Red Blood Count 3.80 X10*6/uL (4.20-5.50); White Blood Count 5.9 X10*3/uL (4.8-10.8)
[2025-09-10 13:47] LABS: Appearance Urine Clear; Glucose Urine UA Negative (Negative); PH 6.0 (5.0-9.0); Specific Gravity - Urine 1.015 (1.005-1.025); UMIC TRIGGER UA YES
--- OUTSIDE RECORDS SUMMARY | 2025-09-10 14:09 | XMS_ITS | Data Portability ---
Author Organization [place] - [facility], Allergy Address [address] [address] Assessment Encounter Date Assessment Date Assessment LastModified [...] recorded. Imaging MRI, neck, w/wo contrast - bengali speaker, hx of right parotidecto my for [...] ast No observ ation record ed. [email or web address] [address], [address], 10/09/2024 09:09:01 Result Notes None recorded. 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; Note: Date Diagnose d: 8 1:28 PM (D44.0) Not Available [facility] 4 02:29:24 Malignan t neoplasm of parotid gland 094905423 Completed 201806/19/2024 Malignan t neoplasm of parotid gland; Location : right No te: Date Diagnose d: 9 11:40 AM (C07) Not Available [facility] 4 02:29:33 History of malignan t neoplasm of parotid gland 52166269459 9102 Active 2023 CHRIS WOO MD 100 [facility],[place] [address], [place], [address] , [facility] - [facility] 4 13:58:22 Problem Notes None recorded. Medical [...] Updated DateTime 07/08/2024 152.4 cm 29.3 kg/m2 20677.86 g Marc Odonnell [place] - [facility] 07/08/2024 13:41:16 Social History None recorded. Functional Status None recorded. Mental Status None recorded. Family History Nothing Reported. Medical History No medical history recorded. Gynecological HistoryNo gynecological history recorded. Obstetrics History GPAL:G 0 P 0 0 0 0 Past Encounters Encounter ID Performer Location Encounter Start Date Encounter Closed Date Diagnosis/Indication Diagnosis SNOMED-CT Code Diagnosis ICD10 Code Diagnosis IMO Codes Diagnosis Note [id number] CHRIS WOO MD [facility] [address] [address] 07/08/2024 13:31:55 07/08/2024 14:01:53 History of malignant neoplasm of parotid gland 0862681209 16675 Z85.818 Health Concerns Section Related Observation LastModified by Organization Detai ls LastModified Time None Recorded Concern Status LastModified by Organization Details LastModified Time None Recorded Advance Directives Directive None Recorded Payers Insurance Date Sequence Insurance Name Policy Number Policy Madrigal Covered Member ID Madrigal Member ID Guarantor Name 08/03/2024 1 [facility] [address] [employer] - [facility] ([facility] HMO) Maura Travis [id number] Maura Travis 07/15/2024 1 [facility] - DOS ON OR AFTER 2023 - MEDICARE [place]ANTAGE [place]/AD VANTAGE - O) Maura Travis [id number] Maura Travis 08/03/2024 1 [facility] - DOS ON OR AFTER 2023 - [facility] (MEDICARE REPLACEMENT/AD VANTAGE - HMO) Maura Travis [id number] Maura Travis Notes Date Note Type Note Provider Name and Address Organization Details Recorded Time 07/08/2024 text/html bengali - IPADhx of right deep lobe parotid [...] for a follicular nodule CHRIS WOO MD [address] [place] [address], [place], [address], [place] - [facility] 07/08/2024 14:01:47 OBGyn Episode No OBEpisode recorded.
[2025-09-10 14:11] LABS: Alanine Aminotransferase 23 U/L (0-31); Albumin Level 4.1 g/dL (3.5-5.0); Alkaline Phosphatase 76 U/L (39-117); Anion Gap 11 (12-20); Aspartate Amino Transferase 30 U/L (5-31); Blood Urea Nitrogen 19 mg/dL (9-16); Calcium 9.0 mg/dL (8.4-10.2); Carbon Dioxide 24 mmol/L (22-29); Chloride 109 mmol/L (96-108); Estimated Glomerular Filt Rate > 60; Potassium 3.7 mmol/L (3.3-5.1); Sodium 140 mmol/L (135-145); Total Protein 7.1 g/dL (6.5-8.0)
[2025-09-10 14:40] LABS: Total Protein Urine Random 10 mg/dL (<12)
[2025-09-10 14:53] LABS: Uric Acid 2.4 mg/dL (2.4-5.7)
[2025-09-10 14:59] LABS: Parathyroid Hormone Intact 113.5 pg/mL (8.7-77.1)
[2025-09-14 17:39] LABS: Prot Elec - Albumin 3.9 g/dL (3.8-4.8); Prot Elec - Alpha1 0.3 g/dL (0.2-0.3); Prot Elec - Alpha2 0.9 g/dL (0.5-0.9); Prot Elec - Beta 1 0.4 g/dL (0.4-0.6); Prot Elec - Beta 2 0.4 g/dL (0.2-0.5); Prot Elec - Gamma 1.0 g/dL (0.8-1.7); Prot Elec - Total Protein 6.9 g/dL (6.1-8.1)
[2025-09-14 18:24] LABS: Anti Glomerular Basement Memb <1.0 AI
[2025-09-16 13:39] LABS: Neutrophil Cyto Ab Screen NEGATIVE (NEGATIVE)
[2025-09-19 11:23] LABS: Anti Nuclear Antibody Screen NEGATIVE (NEGATIVE)
== END 2025-09-10 11:51 | disposition home or self-care (01) ==
LOC: HO.10HDL 11:50
PROVIDERS: Visit Provider Internal Medicine Hypertension Specialist
DX: Z01.84 Encounter for antibody response examination (principal); R31.9 Hematuria, unspecified; Z13.21 Encounter for screening for nutritional disorder
CPT/HCPCS: 36415; 80053; 81001; 82306; 82570; 83520; 83970; 84156; 84165; 84550; 85025; 86036; 86038; 86160; 99202

== ENCOUNTER 2025-09-20 08:50 | Outpatient (AMB) | payer OTHER, SELFPAY ==
--- OUTSIDE RECORDS SUMMARY | 2025-09-20 09:28 | XMS_ITS | Data Portability ---
Author Organization [place] - [facility], Allergy Address [address] [address] Assessment Encounter Date Assessment Date Assessment LastModified [...] recorded. Imaging MRI, neck, w/wo contrast - estonian speaker, hx of right parotidecto my for [...] ast No observ ation record ed. [email or web address] [address], [address], 10/09/2024 09:09:01 Result Notes None recorded. 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; Note: Date Diagnose d: 8 1:28 PM (D44.0) Not Available [facility] 4 02:29:24 Malignan t neoplasm of parotid gland 426910196 Completed 201806/19/2024 Malignan t neoplasm of parotid gland; Location : right No te: Date Diagnose d: 9 11:40 AM (C07) Not Available [facility] 4 02:29:33 History of malignan t neoplasm of parotid gland 39319292821 9102 Active 2023 CHRIS WOO MD 100 [facility],[place] [address], [place] [id number] , [facility] - [facility] 4 13:58:22 Problem Notes None [...] Updated DateTime 07/08/2024 152.4 cm 29.3 kg/m2 74208.86 g Marc Odonnell [place] - [facility] 07/08/2024 13:41:16 Social History None [...] ICD10 Code Diagnosis IMO Codes Diagnosis Note [id number] CHRIS WOO MD [facility] [address] [address] 07/08/2024 13:31:55 07/08/2024 14:01:53 History of malignant neoplasm of parotid gland 5113001752 54873 Z85.818 Health Concerns Section Related Observation LastModified by Organization Detai ls LastModified Time None Recorded Concern Status LastModified by Organization Details LastModified Time None Recorded Advance Directives Directive None Recorded Payers Insurance Date Sequence Insurance Name Policy Number Policy Madrigal Covered Member ID Madrigal Member ID Guarantor Name 08/03/2024 1 [facility] [employer] - [facility] ([facility] HMO) Maura Travis [id number] Maura Travis 07/15/2024 1 [facility] - DOS ON OR AFTER 2023 - MEDICARE [place]AGE [place]/AD VANTAGE - O) Maura Travis [id number] Maura Travis 08/03/2024 1 [facility] - DOS ON OR AFTER 2023 - [facility] (MEDICARE REPLACEMENT/AD VANTAGE - HMO) Maura Travis [id number] Maura Travis Notes Date Note Type Note Provider Name and Address Organization Details Recorded Time 07/08/2024 text/html estonian - IPADhx of right deep lobe parotid with Dr Rasheed in 2013. Was told it was malignant, but on surveillance imaging no growth or recurrence. 03/2019 MRI neck to investigate right neck pain.right facial pain started about February 2021feels the pain in the bone now.feels movement of face is slight decrease on right side 2020 Dr Jhonson thyroid surgery for a follicular nodule CHRIS WOO MD [address] [place] [address], [place], [address], [place] - [facility] 07/08/2024 14:01:47 OBGyn Episode No OBEpisode recorded.
--- OUTSIDE RECORDS SUMMARY | 2025-09-20 09:28 | XMS_ITS | Clinical Summary ---
Author Organization [facility] Address [address] [place] [address] Phone Care Team Providers Care Restaurant Floor Manager Name Role Phone Mary Jo Conteh MD Primary Care Provider [phone] Allergies No known active allergies Medications albuterol [...] 1 (one) time each day. Active ascorbic osds-donouvzf-dp n 1,000 mg powder effervescent in packet [...] EDT - 09/01/2025 9:12 PM EDT Emergency [facility] Emergency [address] [place] [address] Joseph Arango MD Peptic ulcer (Primary Dx); Abdominal pain, unspecified abdominal location; Hematuria, unspecified type Discharge Disposition: Home or Self Care 06/27/2025 12:20 PM EDT - 06/27/2025 4:46 PM EDT Emergency [facility] Emergency [address] [place] [address] Saud Solano MD Lumbar strain, initial encounter [...] AM EDT Office Visit Gastroenterology - [address] [place] [address] Taniya Galdamez NP [address] [place] [phone] Health Maintenance Due Date Last Done Comments [...] this topic Medical Devices Implanted Type Area Kinesiology Professor Device Identifier Shelf Expiration Date Model / Serial / Lot Mesh Ventralex St 1.7in Sm [place] W/Strap - Sn/A - [id number] Implanted:Qty: 1 on 12/09/2024 by Griffin Loya MD at [facility] Surgical Mesh Sling Implants N/A: Umbilical CR BARD - DAVOL DIV [id number] / N/A / N/A Procedures Procedure Name [...] and culture (09/01/2025 2:31 PM EDT) Specific [place] Urine 1.015 1.003 - 1.030 LAB URINALYSIS - AUTOMATED METHOD 09/01/2025 3:02 PM [facility] pH, Urine 6.0 5.0 - 8.0 pH LAB URINALYSIS - AUTOMATED METHOD 09/01/2025 3:02 PM [facility] Leukocytes, Urine Negative Negative LAB URINALYSIS - AUTOMATED METHOD 09/01/2025 3:02 PM [facility] Nitrite, Urine Negative Negative LAB URINALYSIS - AUTOMATED METHOD 09/01/2025 3:02 PM [facility] Protein, Urine Negative <=Trace mg/dL LAB URINALYSIS - AUTOMATED METHOD 09/01/2025 3:02 PM [facility] Glucose, Urine Negative Negative mg/dL LAB URINALYSIS - AUTOMATED METHOD 09/01/2025 3:02 PM [facility] Ketones, Urine Negative Negative mg/dL LAB URINALYSIS - AUTOMATED METHOD 09/01/2025 3:02 PM [facility] Urobilinogen, Urine 0.2 0.2 - 1.0 mg/dL LAB URINALYSIS - AUTOMATED METHOD 09/01/2025 3:[address] [facility] Bilirubin, Urine Negative Negative LAB URINALYSIS - AUTOMATED METHOD 09/01/2025 3:[address] [facility] Blood, Urine Trace(A) Negative LAB URINALYSIS - AUTOMATED METHOD 09/01/2025 3:[address] [facility] RBC, Urine 5.2(H) 0 - 4 /HPF LAB URINALYSIS - AUTOMATED METHOD 09/01/2025 3:02 PM [facility] WBC, Urine 0.4 0 - 4 /HPF LAB URINALYSIS - AUTOMATED METHOD 09/01/2025 3:02 PM [facility] Squamous Epithelial, Urine 15 0 - 60 /LPF LAB URINALYSIS - AUTOMATED METHOD 09/01/2025 3:02 PM [facility] Bacteria, Urine Negative Negative /HPF LAB URINALYSIS - AUTOMATED METHOD 09/01/2025 3:02 PM [facility] Hyaline Casts, Urine 0.0 0 - 3 /LPF LAB URINALYSIS - AUTOMATED METHOD 09/01/2025 3:02 PM [facility] Urine Urine specimen obtained by clean catch procedure / Unknown Non-blood Collection / Unknown 09/01/2025 2:31 PM EDT 09/01/2025 2:41 PM EDT us Joseph Arango MD LAB URINE ORDERABLES Final Resul t [facility] [address] [place] [address], * Rebol[place]o urine culture tube (09/01/2025 2:31 PM EDT) Extra Tube Hold for add-ons. 09/01/2025 4:[address] [facility] Comment:Auto resulted. Urine Urine specimen obtained by clean catch procedure / Unknown Non-blood Collection / Unknown 09/01/2025 2:31 PM EDT 09/01/2025 2:41 PM EDT us Joseph Arango MD LAB URINE ORDERABLES Final Resul t [facility] [address] [place] [address], [place] [phone] * CBC auto differential (09/01/2025 2:23 PM EDT) WBC 6.8 4.8 - 10.8 K/mcL LAB HEMETOLOGY METHOD 09/01/2025 2:[address] [facility] RBC 3.90 3.80 - 4.80 M/mcL LAB HEMETOLOGY METHOD 09/01/2025 2:[address] [facility] Hemoglobin 11.7 11.5 - 16.0 g/dL LAB HEMETOLOGY METHOD 09/01/2025 2:[address] [facility] Hematocrit 36.1 35.0 - 47.0 % LAB HEMETOLOGY METHOD 09/01/2025 2:[address] [facility] MCV 93.0 79.0 - 98.0 FL LAB HEMETOLOGY METHOD 09/01/2025 2:[address] [facility] MCH 30.2 27.0 - 32.0 pcg LAB HEMETOLOGY METHOD 09/01/2025 2:[address] [facility] MCHC 32.4 32.0 - 37.0 g/dL LAB HEMETOLOGY METHOD 09/01/2025 2:[address] [facility] RDW 13.8 11.0 - 15.0 % LAB HEMETOLOGY METHOD 09/01/2025 2:[address] [facility] Platelets 309 130 - 400 K/mcL LAB HEMETOLOGY METHOD 09/01/2025 2:56 PM [facility] MPV 10.1 7.0 - 11.0 FL LAB HEMETOLOGY METHOD 09/01/2025 2:56 PM [facility] NRBC 0.0 <1.0 % LAB HEMETOLOGY METHOD 09/01/2025 2:56 PM [facility] NRBC Absolute 0.00 <0.10 K/mcL LAB HEMETOLOGY METHOD 09/01/2025 2:56 PM [facility] Neutrophils Relative 70.2 % LAB HEMETOLOGY METHOD 09/01/2025 2:56 PM [facility] Lymphocytes Relative 21.0 % LAB HEMETOLOGY METHOD 09/01/2025 2:56 PM [facility] Monocytes Relative 6.5 % LAB HEMETOLOGY METHOD 09/01/2025 2:56 PM [facility] Eosinophils Relative 1.5 % LAB HEMETOLOGY METHOD 09/01/2025 2:56 PM [facility] Basophils Relative 0.7 % LAB HEMETOLOGY METHOD 09/01/2025 2:56 PM [facility] Immature Granulocytes Relative 0.1 % LAB HEMETOLOGY METHOD 09/01/2025 2:56 PM [facility] Neutrophils Absolute 4.78 1.50 - 7.00 K/mcL LAB HEMETOLOGY METHOD 09/01/2025 2:[address] [facility] Lymphocytes Absolute 1.43 1.00 - 5.00 K/mcL LAB HEMETOLOGY METHOD 09/01/2025 2:[address] [facility] Monocytes Absolute 0.44 0.20 - 1.00 K/mcL LAB HEMETOLOGY METHOD 09/01/2025 2:56 PM [facility] Eosinophils Absolute 0.10 0.00 - 0.50 K/mcL LAB HEMETOLOGY METHOD 09/01/2025 2:[address] [facility] Basophils Absolute 0.05 0.00 - 0.20 K/[facility] LAB HEMETOLOGY METHOD 09/01/2025 2:[address] [facility] Immature Granulocytes Absolute 0.01 0.00 - 0.03 K/[facility] LAB HEMETOLOGY METHOD 09/01/2025 2:[address] [facility] Blood Venous blood specimen / Unknown Venipuncture / Unknown 09/01/2025 2:23 PM EDT 09/01/2025 2:42 PM EDT us Joseph Arango MD LAB BLOOD ORDERABLES Final Resul t Performing Organization Address [facility] Phone Number [facility] [address] [place] [address], [place] [phone] * Lipase (09/01/2025 2:23 PM EDT) Pathologist [facility] Lipase 40 13 - 75 unit/L LAB CHEMISTRY METHOD 09/01/2025 3:[address] [facility] Blood Venous blood specimen / Unknown Venipuncture / Unknown 09/01/2025 2:23 PM EDT 09/01/2025 2:42 PM EDT us Joseph Arango MD LAB BLOOD ORDERABLES Final Resul t Performing Organization Address City/[facility]/ZIP Co de Phone Number [facility] [address] [place] [address], [place] [phone] * (ABNORMAL) Comprehensive metabolic panel (09/01/2025 2:23 PM EDT) Pathologist [facility] Sodium 139 133 - 145 mmol/L LAB CHEMISTRY METHOD 09/01/2025 3:[address] [facility] Potassium 4.5 3.5 - 5.5 mmol/L LAB CHEMISTRY METHOD 09/01/2025 3:[address] [facility] Chloride 107 96 - 110 mmol/L LAB CHEMISTRY METHOD 09/01/2025 3:28 PM [facility] CO2 28 21 - 32 mmol/L LAB CHEMISTRY METHOD 09/01/2025 3:28 PM [facility] Anion Gap 4 3 - 11 LAB CHEMISTRY METHOD 09/01/2025 3:28 PM [facility] Glucose 103(H) 70 - 100 mg/dL LAB CHEMISTRY METHOD 09/01/2025 3:28 PM [facility] BUN 21 5 - 25 mg/dL LAB CHEMISTRY METHOD 09/01/2025 3:28 PM [facility] Creatinine 0.86 0.50 - 1.10 mg/dL LAB CHEMISTRY METHOD 09/01/2025 3:28 PM [facility] eGFR 75 >=60 mL/min/1. 73m2 LAB CHEMISTRY METHOD 09/01/2025 3:28 PM [facility] Comment:Calculation based on the Chronic Kidney Disease Epidemiology Collaboration (CKD-EPI) equation refit without adjustment for race. BUN/Creatinine Ratio 24.4 LAB CHEMISTRY METHOD 09/01/2025 3:28 PM [facility] Calcium 9.8 8.5 - 10.5 mg/dL LAB CHEMISTRY METHOD 09/01/2025 3:28 PM [facility] AST (SGOT) 22 10 - 42 unit/L LAB CHEMISTRY METHOD 09/01/2025 3:28 PM [facility] ALT (SGPT) 29 10 - 60 unit/L LAB CHEMISTRY METHOD 09/01/2025 3:28 PM [facility] Alkaline Phosphatase 89 42 - 121 unit/L LAB CHEMISTRY METHOD 09/01/2025 3:28 PM [facility] Total Protein 7.0 6.0 - 8.0 g/dL LAB CHEMISTRY METHOD 09/01/2025 3:28 PM [facility] Albumin 3.5 3.2 - 5.0 g/dL LAB CHEMISTRY METHOD 09/01/2025 3:[address] [facility] Total Bilirubin 0.3 0.0 - 1.4 mg/dL LAB CHEMISTRY METHOD 09/01/2025 3:[address] [facility] Blood Venous blood specimen / Unknown Venipuncture / Unknown 09/01/2025 2:23 PM EDT 09/01/2025 2:42 PM EDT us Joseph Arango MD LAB BLOOD ORDERABLES Final Resul t [facility] [address] [place] [address], [place] [phone] * XR Lumbar Spine 2-3 Views (06/27/2025 [...] Signed Date: 06/27/2025 15:28 ET Workstation ID: [id number] Transcribed By: Self Edit Transcribed Date: 06/27/2025 [...] Signed Date: 06/27/2025 15:28 ET Workstation ID: [id number] Transcribed By: Self Edit Transcribed Date: 06/27/2025 [...] Signed Date: 06/27/2025 15:27 ET Workstation ID: [id number] Transcribed By: Self Edit Transcribed Date: 06/27/2025 [...] Signed Date: 06/27/2025 15:27 ET Workstation ID: [id number] Transcribed By: Self Edit Transcribed Date: 06/27/2025 15:26 ET us Saud Solano MD IMG XR PROCEDURES Final Res ult from Last 3 Months Insurance [facility] MEDIC[facility] Member Subscriber Plan / Payer (Ef fective 2023-Present) Name:GonzalesMaura Relation to Subscriber:Self Name:AngyMaura Schroeder Payer ID:[id number] Group ID:[id number] Type:Not on file Address: [place] [address] [address] Advance Directives Documents on File Type Date Recorded Patient Industrial Rehabilitation Consultant Expl anation Health Care Decision (hx) [...] currently active code status orders. Care Teams Restaurant Floor Manager Relationship Specialty Start Date End Date Mary Jo Conteh MD [address] [place] [address] , [address] [employer] [facility] [place], [place] PCP - General Internal Medicine 05/28/18
--- OUTSIDE RECORDS SUMMARY | 2025-09-20 09:28 | XMS_ITS | Clinical Summary ---
Author Organization [facility] Address [address] [place] [address] Phone Care Team Providers Care Senior Engineering Tech Name Role Phone Mary Jo Ascencio MD [...] file Medical Devices Not on file Insurance [facility] [employer] [address] [place] [address] ACO Member Subscriber Plan / Payer (Ef fective 2019-Present) Name:Maura Travis Relation to Subscriber:Self Name:Maura Travis Payer ID:[id number] Group ID:[id number] Type:Medicaid Address: [address] ACO [facility] A[employer] Member Subscriber Plan / Payer (Ef fective 2019-Present) Name:Maura Travis Relation to Subscriber:Self Name:Maura Travis Payer ID:[id number] Group ID:[id number] Type:Medicaid Address: [address] ACO Member Subscriber Plan / Payer (Ef fective 2019-Present) Name:Maura Travis Relation to Subscriber:Self Name:Maura Travis Payer ID:[id number] Group ID:[id number] Type:Medicaid Address: [address] [place] [address] ACO Member Subscriber Plan / Payer (Ef fective 2019-Present) Name:Maura Travis Relation to Subscriber:Self Name:Maura Travis Payer ID:[id number] Group ID:[id number] Type:Medicaid Address: [address] [place] [address] ACO Member Subscriber Plan / Payer (Ef fective 2019-Present) Name:Maura Travis Relation to Subscriber:Self Name:Maura Travis Payer ID:[id number] Group ID:[id number] Type:Medicaid Address: [address] ACO [facility] ACO Member Subscriber Plan / Payer (Ef fective 2019-Present) Name:Maura Travis Relation to Subscriber:Self Name:Maura Travis Payer ID:[id number] Group ID:[id number] Type:Medicaid Address: [address] [place] [address] ACO Member Subscriber Plan / Payer (Ef fective 2019-Present) Name:Maura Travis Relation to Subscriber:Self Name:Maura Travis Payer ID:[id number] Group ID:[id number] Type:Medicaid Address: [address] [place] [address] ACO Member Subscriber Plan / Payer (Ef fective 2019-Present) Name:Maura Travis Relation to Subscriber:Self Name:Maura Travis Payer ID:[id number] Group ID:[id number] Type:Medicaid Address: [address] ACO Care Teams Senior Engineering Tech Relationship Specialty Start Date End Date Mary Jo Ascencio MD [address] [place] [address] PCP - General 06/04/19 Additional Source Comments The information contained in this document represents components of the legal health record. It is not the complete legal health record.[facility]
--- NOTE | 2025-09-20 09:36 | AM.OFFVISNUR ---
Vital Signs 09/20/25 09:45 Height 5 ft Weight 151 lb BMI 29.5 BP 140/70 H Blood Pressure Location Lt brachial Position Sitting Pulse 56 Intake Visit Reasons: h pylori Intake Note: Patient presents for collection of?H Pylori?breath test. Patient has been fasting for 1 hour (nothing to eat, drink, no chewing gum or smoking) has not taken any antacid medication for at least 2 weeks and has no allergies to artificial sweeteners.?? Acquisition Consultant Required: Yes Acquisition Consultant Language: Sap Developer Name: Marie PATTERSON Accompanied by: Self / Same As Patient Allergies phentermine Allergy (Intermediate, Verified 09/10/25 11:18) Palpitations Assessment & Plan Assessment & Plan (1) GERD (gastroesophageal reflux disease): Code(s): K21.9 - Gastro-esophageal reflux disease without esophagitis Category: Medical Plan Patient presents for collection of?H Pylori?breath test. Patient has been fasting for 1 hour (nothing to eat, drink, no chewing gum or smoking) has not taken any antacid medication for at least 2 weeks and has no allergies to artificial sweeteners.???This test checks for an overgrowth of bacteria in your stomach. We all have bacteria but some may have more than others. It is treatable. if the test comes back negative there is nothing else to do. If the test result is positive we will treat you with 2 antibiotics and a medication to decrease the acid in your stomach (PPI) for 2 weeks. Two weeks after you have completed the treatment we will retest you to make sure the overgrowth has resolved. Patient Instructions: Process for specimen collection and reason for testing was explained to the patient. Specimen collection. Patient instructed to take a deep breath and then exhale into the blue bag, filling it up as much as possible. Patient instructed to drink a mixture of water and the artificial sweetener with a straw. A 15 minute wait period was observed. Patient instructed to take a deep breath and then exhale into the pink bag, filling it up as much as possible.?? Coding Level of Care Code Established Pt Est Pt Level 1 (02111) Patient Type Established Diagnoses GERD (gastroesophageal reflux disease) K21.9
[2025-09-20 09:45] VITALS: BP 140/70; PULSE 56; BMI 29.5
== END 2025-09-20 09:53 | disposition home or self-care (01) ==
LOC: HO.HGI 08:50
PROVIDERS: PCP Internal Medicine; Visit Provider Internal Medicine Gastroenterology
DX: K21.9 Gastro-esophageal reflux disease without esophagitis (principal)

== ENCOUNTER 2025-09-20 08:50 | Outpatient (REF) | payer OTHER, SELFPAY ==
--- OUTSIDE RECORDS SUMMARY | 2025-09-21 18:08 | XMS_ITS | Clinical Summary ---
Author Organization [facility] Address [address] [place] [address] Phone Care Team Providers Care Monument Setter Name Role Phone Mary Jo Ascencio MD [...] file Insurance [facility] [employer] [address] [place] [address] ACO Member Subscriber Plan / Payer (Ef fective 2019-Present) Name:Maura Travis Relation to Subscriber:Self Name:Maura Travis Payer ID:[id number] Group ID:[id number] Type:Medicaid Address: [address] ACO [facility] ACO Member Subscriber Plan / Payer (Ef fective 2019-Present) Name:Maura Travis Relation to Subscriber:Self Name:Maura Travis Payer ID:[id number] Group ID:[id number] Type:Medicaid Address: [address] ACO Member Subscriber Plan / Payer (Ef fective 2019-Present) Name:Maura Travis Relation to Subscriber:Self Name:Maura Travis Payer ID:[id number] Group ID:[id number] Type:Medicaid Address: [address] [place] [address] ACO Member Subscriber Plan / Payer (Ef fective 2019-Present) Name:Maura Travis Relation to Subscriber:Self Name:Maura Travis Payer ID:[id number] Group ID:[id number] Type:Medicaid Address: [address] [place] [address] ACO Member Subscriber Plan / Payer (Ef fective 2019-Present) Name:Maura Travis Relation to Subscriber:Self Name:Maura Travis Payer ID:[id number] Group ID:[id number] Type:Medicaid Address: [address] ACO [facility] ACO Member Subscriber Plan / Payer (Ef fective 2019-Present) Name:Maura Travis Relation to Subscriber:Self Name:Maura Travis Payer ID:[id number] Group ID:[id number] Type:Medicaid Address: [address] [place] [address] ACO Member Subscriber Plan / Payer (Ef fective 2019-Present) Name:Maura Travis Relation to Subscriber:Self Name:Maura Travis Payer ID:[id number] Group ID:[id number] Type:Medicaid Address: [address] [place] [address] ACO Member Subscriber Plan / Payer (Ef fective 2019-Present) Name:Maura Travis Relation to Subscriber:Self Name:Maura Travis Payer ID:[id number] Group ID:[id number] Type:Medicaid Address: [address] ACO Care Teams Monument Setter Relationship Specialty Start Date End Date Mary Jo Ascencio MD [address] [place] [address] PCP - General 06/04/19 Additional Source Comments The information contained in this document represents components of the legal health record. It is not the complete legal health record.[facility]
--- OUTSIDE RECORDS SUMMARY | 2025-09-21 18:09 | XMS_ITS | Clinical Summary ---
Author Organization [address] [facility] Address [address] [place] [address] Phone Care Team Providers Care Earth Mover Name Role Phone Mary Jo Conteh MD Primary Care Provider Allergies No known active allergies Medications albuterol [...] 1 (one) time each day. Active ascorbic gyen-fnkrnphq-rs n 1,000 mg powder effervescent in packet [...] EDT - 09/01/2025 9:12 PM EDT Emergency [facility] Emergency [address] [place] [address] Joseph Arango MD Peptic ulcer (Primary Dx); Abdominal pain, unspecified abdominal location; Hematuria, unspecified type Discharge Disposition: Home or Self Care 06/27/2025 12:20 PM EDT - 06/27/2025 4:46 PM EDT Emergency [facility] Emergency [address] [place] [address] Saud Solano MD Lumbar strain, initial encounter [...] AM EDT Office Visit Gastroenterology - 299 [facility] 299 [facility] [address] [place] [phone] Taniya Galdamez NP [address] [facility] [address] [place] [address] Health Maintenance Due Date Last Done Comments [...] this topic Medical Devices Implanted Type Area Associate Sales Representative Device Identifier Shelf Expiration Date Model / Serial / Lot Mesh Ventralex St 1.7in Sm Capitan Grande Band W/Strap - Sn/A - [id number] Implanted:Qty: 1 on 12/09/2024 by Griffin Loya MD at [facility] Surgical Mesh Sling Implants N/A: Umbilical CR BARD - DAVOL DIV [id number] / N/A / N/A Procedures Procedure Name [...] and culture (09/01/2025 2:31 PM EDT) Specific [place] Urine 1.015 1.003 - 1.030 LAB URINALYSIS - AUTOMATED METHOD 09/01/2025 3:02 PM [facility] pH, Urine 6.0 5.0 - 8.0 pH LAB URINALYSIS - AUTOMATED METHOD 09/01/2025 3:02 PM [facility] Leukocytes, Urine Negative Negative LAB URINALYSIS - AUTOMATED METHOD 09/01/2025 3:02 PM [facility] Nitrite, Urine Negative Negative LAB URINALYSIS - AUTOMATED METHOD 09/01/2025 3:02 PM [facility] Protein, Urine Negative <=Trace mg/dL LAB URINALYSIS - AUTOMATED METHOD 09/01/2025 3:02 PM [facility] Glucose, Urine Negative Negative mg/dL LAB URINALYSIS - AUTOMATED METHOD 09/01/2025 3:02 PM [facility] Ketones, Urine Negative Negative mg/dL LAB URINALYSIS - AUTOMATED METHOD 09/01/2025 3:02 PM [facility] Urobilinogen, Urine 0.2 0.2 - 1.0 mg/dL LAB URINALYSIS - AUTOMATED METHOD 09/01/2025 3:02 PM EDT [facility] Bilirubin, Urine Negative Negative LAB URINALYSIS - AUTOMATED METHOD 09/01/2025 3:02 PM EDT [facility] Blood, Urine Trace(A) Negative LAB URINALYSIS - AUTOMATED METHOD 09/01/2025 3:02 PM [facility] RBC, Urine 5.2(H) 0 - 4 /HPF LAB URINALYSIS - AUTOMATED METHOD 09/01/2025 3:02 PM [facility] WBC, Urine 0.4 0 - 4 /HPF LAB URINALYSIS - AUTOMATED METHOD 09/01/2025 3:02 PM [facility] Squamous Epithelial, Urine 15 0 - 60 /LPF LAB URINALYSIS - AUTOMATED METHOD 09/01/2025 3:02 PM [facility] Bacteria, Urine Negative Negative /HPF LAB URINALYSIS - AUTOMATED METHOD 09/01/2025 3:02 PM [facility] Hyaline Casts, Urine 0.0 0 - 3 /LPF LAB URINALYSIS - AUTOMATED METHOD 09/01/2025 3:02 PM [facility] Urine Urine specimen obtained by clean catch procedure / Unknown Non-blood Collection / Unknown 09/01/2025 2:31 PM EDT 09/01/2025 2:41 PM EDT us Joseph Arango MD LAB URINE ORDERABLES Final Resul t [facility] [address] [place] [address], * Rebolledo urine culture tube (09/01/2025 2:31 PM EDT) Extra Tube Hold for add-ons. 09/01/2025 4:01 PM EDT [facility] Comment:Auto resulted. Urine Urine specimen obtained by clean catch procedure / Unknown Non-blood Collection / Unknown 09/01/2025 2:31 PM EDT 09/01/2025 2:41 PM EDT us Joseph Arango MD LAB URINE ORDERABLES Final Resul t [facility] [address] [place] [address], [place] [phone] * CBC auto differential (09/01/2025 2:23 PM EDT) WBC 6.8 4.8 - 10.8 K/mcL LAB HEMETOLOGY METHOD 09/01/2025 2:56 PM EDT [facility] RBC 3.90 3.80 - 4.80 M/mcL LAB HEMETOLOGY METHOD 09/01/2025 2:56 PM EDT [facility] Hemoglobin 11.7 11.5 - 16.0 g/dL LAB HEMETOLOGY METHOD 09/01/2025 2:56 PM EDT [facility] Hematocrit 36.1 35.0 - 47.0 % LAB HEMETOLOGY METHOD 09/01/2025 2:56 PM EDT [facility] MCV 93.0 79.0 - 98.0 FL LAB HEMETOLOGY METHOD 09/01/2025 2:56 PM EDT [facility] MCH 30.2 27.0 - 32.0 pcg LAB HEMETOLOGY METHOD 09/01/2025 2:56 PM EDT [facility] MCHC 32.4 32.0 - 37.0 g/dL LAB HEMETOLOGY METHOD 09/01/2025 2:56 PM EDT [facility] RDW 13.8 11.0 - 15.0 % LAB HEMETOLOGY METHOD 09/01/2025 2:56 PM EDT [facility] Platelets 309 130 - 400 K/mcL LAB HEMETOLOGY METHOD 09/01[facility]2025 2:[facility] MPV 10.1 7.0 - 11.0 FL LAB HEMETOLOGY METHOD 09/01/2025 2:56 PM EDT [facility] NRBC 0.0 <1.0 % LAB HEMETOLOGY METHOD 09/01/2025 2:56 PM [facility] NRBC Absolute 0.00 <0.10 K/mcL LAB HEMETOLOGY METHOD 09/01/2025 2:56 PM EDT [facility] Neutrophils Relative 70.2 % LAB HEMETOLOGY METHOD 09/01/2025 2:56 PM [facility] Lymphocytes Relative 21.0 % LAB HEMETOLOGY METHOD 09/01/2025 2:56 PM [facility] Monocytes Relative 6.5 % LAB HEMETOLOGY METHOD 09/01/2025 2:56 PM EDT [facility] Eosinophils Relative 1.5 % LAB HEMETOLOGY METHOD 09/01/2025 2:56 PM EDT [facility] Basophils Relative 0.7 % LAB HEMETOLOGY METHOD 09/01/2025 2:56 PM [facility] Immature Granulocytes Relative 0.1 % LAB HEMETOLOGY METHOD 09/01/2025 2:56 PM [facility] Neutrophils Absolute 4.78 1.50 - 7.00 K/mcL LAB HEMETOLOGY METHOD 09/01/2025 2:56 PM EDT [facility] Lymphocytes Absolute 1.43 1.00 - 5.00 K/mcL LAB HEMETOLOGY METHOD 09/01/2025 2:56 PM EDT [facility] Monocytes Absolute 0.44 0.20 - 1.00 K/mcL LAB HEMETOLOGY METHOD 09/01/2025 2:56 PM EDT [facility] Eosinophils Absolute 0.10 0.00 - 0.50 K/mcL LAB HEMETOLOGY METHOD 09/01/2025 2:56 PM EDT [facility] Basophils Absolute 0.05 0.00 - 0.20 K/[facility] LAB HEMETOLOGY METHOD 09/01/2025 2:56 PM EDT [facility] Immature Granulocytes Absolute 0.01 0.00 - 0.03 K/[facility] LAB HEMETOLOGY METHOD 09/01/2025 2:56 PM EDT [facility] Blood Venous blood specimen / Unknown Venipuncture / Unknown 09/01/2025 2:23 PM EDT 09/01/2025 2:42 PM EDT us Joseph Arango MD LAB BLOOD ORDERABLES Final Resul t Performing Organization Address [facility] Co de Phone Number [facility] [address] [place] [address], [place] [phone] * Lipase (09/01/2025 2:23 PM EDT) Pathologist [facility] Lipase 40 13 - 75 unit/L LAB CHEMISTRY METHOD 09/01/2025 3:28 PM EDT [facility] Blood Venous blood specimen / Unknown Venipuncture / Unknown 09/01/2025 2:23 PM EDT 09/01/2025 2:42 PM EDT us Joseph Arango MD LAB BLOOD ORDERABLES Final Resul t Performing Organization Address City/[facility]/ZIP Co de Phone Number [facility] [address] [place] [address], [place] [phone] * (ABNORMAL) Comprehensive metabolic panel (09/01/2025 2:23 PM EDT) Pathologist [facility] Sodium 139 133 - 145 mmol/L LAB CHEMISTRY METHOD 09/01/2025 3:28 PM EDT [facility] Potassium 4.5 3.5 - 5.5 mmol/L LAB CHEMISTRY METHOD 09/01/2025 3:28 PM EDT [facility] Chloride 107 96 - 110 mmol/L LAB CHEMISTRY METHOD 09/01/2025 3:28 PM [facility] CO2 28 21 - 32 mmol/L LAB CHEMISTRY METHOD 09/01/2025 3:28 PM [facility] Anion Gap 4 3 - 11 LAB CHEMISTRY METHOD 09/01/2025 3:28 PM [facility] Glucose 103(H) 70 - 100 mg/dL LAB CHEMISTRY METHOD 09/01/2025 3:28 PM [facility] BUN 21 5 - 25 mg/dL LAB CHEMISTRY METHOD 09/01/2025 3:28 PM [facility] Creatinine 0.86 0.50 - 1.10 mg/dL LAB CHEMISTRY METHOD 09/01/2025 3:28 PM [facility] eGFR 75 >=60 mL/min/1. 73m2 LAB CHEMISTRY METHOD 09/01/2025 3:28 PM [facility] Comment:Calculation based on the Chronic Kidney Disease Epidemiology Collaboration (CKD-EPI) equation refit without adjustment for race. BUN/Creatinine Ratio 24.4 LAB CHEMISTRY METHOD 09/01/2025 3:28 PM [facility] Calcium 9.8 8.5 - 10.5 mg/dL LAB CHEMISTRY METHOD 09/01/2025 3:28 PM [facility] AST (SGOT) 22 10 - 42 unit/L LAB CHEMISTRY METHOD 09/01/2025 3:28 PM [facility] ALT (SGPT) 29 10 - 60 unit/L LAB CHEMISTRY METHOD 09/01/2025 3:28 PM [facility] Alkaline Phosphatase 89 42 - 121 unit/L LAB CHEMISTRY METHOD 09/01/2025 3:28 PM [facility] Total Protein 7.0 6.0 - 8.0 g/dL LAB CHEMISTRY METHOD 09/01/2025 3:28 PM [facility] Albumin 3.5 3.2 - 5.0 g/dL LAB CHEMISTRY METHOD 09/01/2025 3:28 PM EDT [facility] Total Bilirubin 0.3 0.0 - 1.4 mg/dL LAB CHEMISTRY METHOD 09/01/2025 3:28 PM EDT [facility] Blood Venous blood specimen / Unknown Venipuncture / Unknown 09/01/2025 2:23 PM EDT 09/01/2025 2:42 PM EDT us Joseph Arango MD LAB BLOOD ORDERABLES Final Resul t [facility] [address] [place] [address], * XR Lumbar Spine 2-3 Views (06/27/2025 3:17 PM EDT) Anatomical Region Laterality Modality Spine, L-spine Radiographic Kathy ging 06/27/2025 3:27 PM EDT Impressions 06/27/2025 3:28 PM EDT Degenerative changes of the lumbar spine. No acute traumatic findings. -------- FINAL REPORT -------- Dictated By: dJ Taylor Dictated Date: 06/27/2025 15:27 ET Assigned Physician: Jd Taylor Reviewed and Electronically Signed By: Jd Taylor Signed Date: 06/27/2025 15:28 ET Workstation ID: [id number] Transcribed By: Self Edit Transcribed Date: 06/27/2025 [...] Signed Date: 06/27/2025 15:28 ET Workstation ID: [id number] Transcribed By: Self Edit Transcribed Date: 06/27/2025 [...] Signed Date: 06/27/2025 15:27 ET Workstation ID: [id number] Transcribed By: Self Edit Transcribed Date: 06/27/2025 [...] Signed Date: 06/27/2025 15:27 ET Workstation ID: [id number] Transcribed By: Self Edit Transcribed Date: 06/27/2025 15:26 ET us Saud Solano MD IMG XR PROCEDURES Final Res ult from Last 3 Months Insurance [facility] MEDIC[facility] Member Subscriber Plan / Payer (Ef fective 2023-Present) Name:TurnerMaura Relation to Subscriber:Self Name:TurnerMaura Schroeder Payer ID:[id number] Group ID:[id number] Type:Not on file Address: [facility] [address] [place] [address] Advance Directives Documents on File Type Date 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 Care Teams Earth Mover Relationship Specialty Start Date End Date Mary Jo Conteh MD [address] [place] [address] , [address] [facility] D/B/A: [facility] [place], [place] PCP - General Internal Medicine 05/28/18
== END 2025-09-20 08:51 | disposition home or self-care (01) ==
LOC: HO.LNP 08:50
PROVIDERS: Visit Provider Nurse Practitioner Family
DX: K21.9 Gastro-esophageal reflux disease without esophagitis (principal)
CPT/HCPCS: 83013; 99211

== ENCOUNTER 2025-09-21 06:17 | Outpatient (REF) | payer OTHER, SELFPAY ==
--- OUTSIDE RECORDS SUMMARY | 2025-09-21 06:25 | XMS_ITS | Clinical Summary ---
Author Organization 175 [facility] Address [address] [place] [address] Phone Care Team Providers Care Pearl Glue Drier Name Role Phone Mary Jo Conteh MD Primary Care Provider [phone] Allergies No known active allergies Medications albuterol [...] 1 (one) time each day. Active ascorbic otwm-yhacqjlu-il n 1,000 mg powder effervescent in packet [...] EDT - 09/01/2025 9:12 PM EDT Emergency [facility] Emergency [address] [place] [address] Joseph Arango MD Peptic ulcer (Primary Dx); Abdominal pain, unspecified abdominal location; Hematuria, unspecified type Discharge Disposition: Home or Self Care 06/27/2025 12:20 PM EDT - 06/27/2025 4:46 PM EDT Emergency [facility] Emergency [address] [place] [address] Saud Solano MD Lumbar strain, initial encounter [...] AM EDT Office Visit Gastroenterology - [address] [facility] [address] [facility] [address] [place] [phone] Taniya Galdamez NP [address] [facility] [address] [place] [address] Health Maintenance Due Date Last Done Comments [...] this topic Medical Devices Implanted Type Area Public Affairs Director Device Identifier Shelf Expiration Date Model / Serial / Lot Mesh Ventralex St 1.7in Sm [place] W/Strap - Sn/A - [id number] Implanted:Qty: 1 on 12/09/2024 by Griffin Loya MD at [facility] Surgical Mesh Sling Implants N/A: Umbilical CR BARD - DAVOL DIV [id number] / N/A / N/A Procedures Procedure Name [...] and culture (09/01/2025 2:31 PM EDT) Specific [place] Urine 1.015 1.003 - 1.030 LAB URINALYSIS - AUTOMATED METHOD 09/01/2025 3:02 PM [facility] pH, Urine 6.0 5.0 - 8.0 pH LAB URINALYSIS - AUTOMATED METHOD 09/01/2025 3:02 PM [facility] Leukocytes, Urine Negative Negative LAB URINALYSIS - AUTOMATED METHOD 09/01/2025 3:02 PM [facility] Nitrite, Urine Negative Negative LAB URINALYSIS - AUTOMATED METHOD 09/01/2025 3:02 PM [facility] Protein, Urine Negative <=Trace mg/dL LAB URINALYSIS - AUTOMATED METHOD 09/01/2025 3:02 PM [facility] Glucose, Urine Negative Negative mg/dL LAB URINALYSIS - AUTOMATED METHOD 09/01/2025 3:02 PM [facility] Ketones, Urine Negative Negative mg/dL LAB URINALYSIS - AUTOMATED METHOD 09/01/2025 3:02 PM [facility] Urobilinogen, Urine 0.2 0.2 - 1.0 mg/dL LAB URINALYSIS - AUTOMATED METHOD 09/01/2025 3:02 PM EDT [facility] Bilirubin, Urine Negative Negative LAB URINALYSIS - AUTOMATED METHOD 09/01/2025 3:02 PM EDT [facility] Blood, Urine Trace(A) Negative LAB URINALYSIS - AUTOMATED METHOD 09/01/2025 3:02 PM [facility] RBC, Urine 5.2(H) 0 - 4 /HPF LAB URINALYSIS - AUTOMATED METHOD 09/01/2025 3:02 PM [facility] WBC, Urine 0.4 0 - 4 /HPF LAB URINALYSIS - AUTOMATED METHOD 09/01/2025 3:02 PM [facility] Squamous Epithelial, Urine 15 0 - 60 /LPF LAB URINALYSIS - AUTOMATED METHOD 09/01/2025 3:02 PM [facility] Bacteria, Urine Negative Negative /HPF LAB URINALYSIS - AUTOMATED METHOD 09/01/2025 3:02 PM [facility] Hyaline Casts, Urine 0.0 0 - 3 /LPF LAB URINALYSIS - AUTOMATED METHOD 09/01/2025 3:02 PM [facility] Urine Urine specimen obtained by clean catch procedure / Unknown Non-blood Collection / Unknown 09/01/2025 2:31 PM EDT 09/01/2025 2:41 PM EDT us Joseph Arango MD LAB URINE ORDERABLES Final Resul t [facility] [address] [place] [address], * Re[place] urine culture tube (09/01/2025 2:31 PM EDT) Extra Tube Hold for add-ons. 09/01/2025 4:01 PM EDT [facility] Comment:Auto resulted. Urine Urine specimen obtained by clean catch procedure / Unknown Non-blood Collection / Unknown 09/01/2025 2:31 PM EDT 09/01/2025 2:41 PM EDT us Joseph Arango MD LAB URINE ORDERABLES Final Resul t [facility] [address] [place] [address], [place] [phone] * CBC auto differential (09/01/2025 2:23 PM EDT) WBC 6.8 4.8 - 10.8 K/mcL LAB HEMETOLOGY METHOD 09/01/2025 2:56 PM EDT [facility] RBC 3.90 3.80 - 4.80 M/mcL LAB HEMETOLOGY METHOD 09/01/2025 2:56 PM EDT [facility] Hemoglobin 11.7 11.5 - 16.0 g/dL LAB HEMETOLOGY METHOD 09/01/2025 2:56 PM EDT [facility] Hematocrit 36.1 35.0 - 47.0 % LAB HEMETOLOGY METHOD 09/01/2025 2:56 PM EDT [facility] MCV 93.0 79.0 - 98.0 FL LAB HEMETOLOGY METHOD 09/01/2025 2:56 PM EDT [facility] MCH 30.2 27.0 - 32.0 pcg LAB HEMETOLOGY METHOD 09/01/2025 2:56 PM EDT [facility] MCHC 32.4 32.0 - 37.0 g/dL LAB HEMETOLOGY METHOD 09/01/2025 2:56 PM EDT [facility] RDW 13.8 11.0 - 15.0 % LAB HEMETOLOGY METHOD 09/01/2025 2:56 PM EDT [facility] Platelets 309 130 - 400 K/mcL [facility] MPV 10.1 7.0 - 11.0 FL LAB HEMETOLOGY METHOD 09/01/2025 2:56 PM EDT [facility] NRBC 0.0 <1.0 % [facility] NR[facility] Absolute 0.00 <0.10 K/mcL LAB HEMETOLOGY METHOD 09/01/2025 2:56 PM EDT [facility] Neutrophils Relative 70.2 % LAB [facility] Lymphocytes Relative 21.0 % [facility] Monocytes Relative 6.5 % LAB HEMETOLOGY METHOD 09/01/2025 2:56 PM EDT [facility] Eosinophils Relative 1.5 % LAB HEMETOLOGY METHOD 09/01/2025 2:56 PM EDT [facility] Basophils Relative 0.7 % LAB [facility] Immature Granulocytes Relative 0.1 % LAB HEMETOLOGY METHOD 09/01/2025 2:56 PM [facility] Neutrophils Absolute 4.78 1.50 - 7.00 K/mcL LAB HEMETOLOGY METHOD 09/01/2025 2:56 PM EDT [facility] Lymphocytes Absolute 1.43 1.00 - 5.00 K/mcL LAB HEMETOLOGY METHOD 09/01/2025 2:56 PM EDT [facility] Monocytes Absolute 0.44 0.20 - 1.00 K/mcL LAB HEMETOLOGY METHOD 09/01/2025 2:56 PM EDT [facility] Eosinophils Absolute 0.10 0.00 - 0.50 K/mcL LAB HEMETOLOGY METHOD 09/01/2025 2:56 PM EDT [facility] Basophils Absolute 0.05 0.00 - 0.20 K/[facility] LAB HEMETOLOGY METHOD 09/01/2025 2:56 PM EDT [facility] Immature Granulocytes Absolute 0.01 0.00 - 0.03 K/[facility] LAB HEMETOLOGY METHOD 09/01/2025 2:56 PM EDT [facility] Blood Venous blood specimen / Unknown Venipuncture / Unknown 09/01/2025 2:23 PM EDT 09/01/2025 2:42 PM EDT us Joseph Arango MD LAB BLOOD ORDERABLES Final Resul t Performing Organization Address [facility] Co de Phone Number [facility] [address] [place] [address], [place] [phone] * Lipase (09/01/2025 2:23 PM EDT) Pathologist [facility] Lipase 40 13 - 75 unit/L LAB CHEMISTRY METHOD 09/01/2025 3:28 PM EDT [facility] Blood Venous blood specimen / Unknown Venipuncture / Unknown 09/01/2025 2:23 PM EDT 09/01/2025 2:42 PM EDT us Joseph Arango MD LAB BLOOD ORDERABLES Final Resul t Performing Organization Address City/[facility]/ZIP Co de Phone Number [facility] [address] [place] [address], [place] [phone] * (ABNORMAL) Comprehensive metabolic panel (09/01/2025 2:23 PM EDT) Pathologist [facility] Sodium 139 133 - 145 mmol/L LAB CHEMISTRY METHOD 09/01/2025 3:28 PM EDT [facility] Potassium 4.5 3.5 - 5.5 mmol/L LAB CHEMISTRY METHOD 09/01/2025 3:28 PM EDT [facility] Chloride 107 96 - 110 mmol/L LAB CHEMISTRY METHOD 09/01/2025 3:28 PM [facility] CO2 28 21 - 32 mmol/L LAB CHEMISTRY METHOD 09/01/2025 3:28 PM [facility] Anion Gap 4 3 - 11 LAB CHEMISTRY METHOD 09/01/2025 3:28 PM [facility] Glucose 103(H) 70 - 100 mg/dL LAB CHEMISTRY METHOD 09/01/2025 3:28 PM [facility] BUN 21 5 - 25 mg/dL LAB CHEMISTRY METHOD 09/01/2025 3:28 PM [facility] Creatinine 0.86 0.50 - 1.10 mg/dL LAB CHEMISTRY METHOD 09/01/2025 3:28 PM [facility] eGFR 75 >=60 mL/min/1. 73m2 LAB CHEMISTRY METHOD 09/01/2025 3:28 PM [facility] Comment:Calculation based on the Chronic Kidney Disease Epidemiology Collaboration (CKD-EPI) equation refit without adjustment for race. BUN/Creatinine Ratio 24.4 LAB CHEMISTRY METHOD 09/01/2025 3:28 PM [facility] Calcium 9.8 8.5 - 10.5 mg/dL LAB CHEMISTRY METHOD 09/01/2025 3:28 PM [facility] AST (SGOT) 22 10 - 42 unit/L LAB CHEMISTRY METHOD 09/01/2025 3:28 PM [facility] ALT (SGPT) 29 10 - 60 unit/L LAB CHEMISTRY METHOD 09/01/2025 3:28 PM [facility] Alkaline Phosphatase 89 42 - 121 unit/L LAB CHEMISTRY METHOD 09/01/2025 3:28 PM [facility] Total Protein 7.0 6.0 - 8.0 g/dL LAB CHEMISTRY METHOD 09/01/2025 3:28 PM [facility] Albumin 3.5 3.2 - 5.0 g/dL LAB CHEMISTRY METHOD 09/01/2025 3:28 PM EDT [facility] Total Bilirubin 0.3 0.0 - 1.4 mg/dL LAB CHEMISTRY METHOD 09/01/2025 3:28 PM EDT [facility] Blood Venous blood specimen / Unknown Venipuncture / Unknown 09/01/2025 2:23 PM EDT 09/01/2025 2:42 PM EDT us Joseph Arango MD LAB BLOOD ORDERABLES Final Resul t [facility] [address] [place] [address], * XR Lumbar Spine 2-3 Views (06/27/2025 [...] Signed Date: 06/27/2025 15:28 ET Workstation ID: [id number] Transcribed By: Self Edit Transcribed Date: 06/27/2025 [...] Signed Date: 06/27/2025 15:28 ET Workstation ID: [id number] Transcribed By: Self Edit Transcribed Date: 06/27/2025 [...] Signed Date: 06/27/2025 15:27 ET Workstation ID: [id number] Transcribed By: Self Edit Transcribed Date: 06/27/2025 [...] Signed Date: 06/27/2025 15:27 ET Workstation ID: [id number] Transcribed By: Self Edit Transcribed Date: 06/27/2025 15:26 ET us Saud Solano MD IMG XR PROCEDURES Final Res ult from Last 3 Months Insurance [facility] [employer] MEDICARE Member Subscriber Plan / Payer (Ef fective 2023-Present) Name:HowardMaura Relation to Subscriber:Self Name:HowardMaura Schroeder Payer ID:[id number] Group ID:[id number] Type:Not on file Address: [facility] [address] [place] [address] Advance Directives Documents on File Type Date Recorded 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 Care Teams Pearl Glue Drier Relationship Specialty Start Date End Date Mary Jo Conteh MD [address] [place] [address] , [address] [facility] D/B/A: [facility] [place], [place] PCP - General Internal Medicine 05/28/18
--- OUTSIDE RECORDS SUMMARY | 2025-09-21 06:25 | XMS_ITS | Clinical Summary ---
Author Organization [facility] Address [address] [place] [address] Phone Care Team Providers Care Surface Grinder Tender Name Role Phone Mary Jo Ascencio MD [...] file Medical Devices Not on file Insurance [facility] [employer] [address] [place] [address] [address] ACO Member Subscriber Plan / Payer (Ef fective 2019-Present) Name:Maura Travis Relation to Subscriber:Self Name:Maura Travis Payer ID:[id number] Group ID:[id number] Type:Medicaid Address: [address] ACO [facility] A[employer] Member Subscriber Plan / Payer (Ef fective 2019-Present) Name:Maura Travis Relation to Subscriber:Self Name:Maura Travis Payer ID:[id number] Group ID:[id number] Type:Medicaid Address: [address] ACO Member Subscriber Plan / Payer (Ef fective 2019-Present) Name:Maura Travis Relation to Subscriber:Self Name:Maura Travis Payer ID:[id number] Group ID:[id number] Type:Medicaid Address: [address] [place] [address] [place] [address] ACO Member Subscriber Plan / Payer (Ef fective 2019-Present) Name:Maura Travis Relation to Subscriber:Self Name:Maura Travis Payer ID:[id number] Group ID:[id number] Type:Medicaid Address: [address] [address] [place] [address] ACO Member Subscriber Plan / Payer (Ef fective 2019-Present) Name:Maura Travis Relation to Subscriber:Self Name:Maura Travis Payer ID:[id number] Group ID:[id number] Type:Medicaid Address: [address] ACO [facility] ACO Member Subscriber Plan / Payer (Ef fective 2019-Present) Name:Maura Travis Relation to Subscriber:Self Name:Maura Travis Payer ID:[id number] Group ID:[id number] Type:Medicaid Address: [address] [place] [address] [place] [address] ACO Member Subscriber Plan / Payer (Ef fective 2019-Present) Name:Maura Travis Relation to Subscriber:Self Name:Maura Travis Payer ID:[id number] Group ID:[id number] Type:Medicaid Address: [address] [place] [address] [address] ACO Member Subscriber Plan / Payer (Ef fective 2019-Present) Name:Maura Travis Relation to Subscriber:Self Name:Maura Travis Payer ID:[id number] Group ID:[id number] Type:Medicaid Address: [address] ACO Care Teams Surface Grinder Tender Relationship Specialty Start Date End Date Mary Jo Ascencio MD [address] [place] [address] PCP - General 06/04/19 Additional Source Comments The information contained in this document represents components of the legal health record. It is not the complete legal health record.[facility]
== END 2025-09-21 06:18 | disposition home or self-care (01) ==
LOC: HO.LAB 06:17
PROVIDERS: PCP Internal Medicine; Visit Provider Internal Medicine
DX: Z13.89 Encounter for screening for other disorder (principal)

== ENCOUNTER 2025-09-21 07:06 | Day surgery (SDC) | payer OTHER, SELFPAY ==
--- OUTSIDE RECORDS SUMMARY | 2025-09-01 16:51 | XMS_ITS | Encounter Summary ---
Author Organization [facility] Address [address] [place] [address] Care Team Providers Care Mechanical Developer Prover Name Role Phone Mary Jo Conteh MD Primary Care Provider [phone] Reason for Referral * Consultation (Routine) - Authorized Specialty Diagnoses / Procedures Referred By Contac t Referred To Contact Gastroenterology Diagnoses Peptic ulcer Abdominal pain, unspecified abdominal location Hematuria, unspecified type Joseph Arango MD [address] [address] Phone: tel: fax: Gastroenterology - [address] [address] Phone: tel: fax: Referral ID Status Reason Start Date Expiration Date Visits Requested Visits Authorized [id number] Authorized Specialty Services Required 09/01/2026 1 1 Reason for Visit * Reason Comments Abdominal Pain Encounter Details Date Type Department Care Team ([facility] Contact Info) Description 09/01/2025 4:51 PM EDT - 09/01/2025 9:12 PM EDT Emergency [facility] Emergency [address] [place] [address] Joseph Arango MD [address] [facility] [address] [place], [place] [id number] Peptic ulcer (Primary Dx); Abdominal pain, unspecified abdominal location; Hematuria, unspecified type Discharge Disposition: Home or Self Care [...] Sign Reading Time Taken Comments Blood Pressure 122/68 09/01/2025 6:46 PM EDT Pulse 54 09/01/2025 6:46 PM EDT Temperature 36.5 C (97.7 F) 09/01/2025 6:46 PM EDT Respiratory Rate 18 09/01/2025 5:41 PM EDT Oxygen Saturation 100% 09/01/2025 6:46 PM EDT Inhaled Oxygen Concentration - - Weight 67.6 kg (149 lb) 09/01/2025 2:05 PM EDT Height 152.4 cm (5') 09/01/2025 2:05 PM EDT Body Mass Index 29.1 09/01/2025 2:05 PM EDT documented in this encounter Discharge Instructions * Discharge Instructions* Joseph Arango MD - 09/01/2025 8:36 PM EDT Blood in your urine may be an early sign of bladder cancer. It is important that you follow up withyour doctor and discuss whether you require additional testing. You have been prescribed a medication called omeprazole to be taken daily. Avoid drinking alcohol, using tobacco products, steroids, such as ibuprofen or Motrin which may worsen your symptoms. Follow-up with gastroenterology and your primary care provider as soon as possible. Call for gastroenterology has been placed. Call the number provided in the discharge paperwork to set up your appointment with gastroenterology as soon as possible. As discussed return the emergency department immediately if your symptoms worsen or do not get better if you experience any worsening uncontrolled pain, recurrent nausea and or vomiting, unable to drink, blood in your vomit, any blood in your poop, chest pain, shortness of breath, or for any other reason. Even though you have been discharged from the Emergency Department, there are several things that you should do to ensure that you receive proper care: 1. DO READ your discharge instructions as these contain important information concerning your medical care. 2. If medication has been prescribed for your condition, fill the prescription as soon as possible and follow the directions on the medication. 3. RETURN AT ONCE TO THE EMERGENCY DEPARTMENT if you have any problems or concerns. These include but are not limited to fever, worsening pain(belly, chest, head, etc...), worsening shortness of breath, uncontrollable bleeding, inability to tolerate food and water, or any condition that makes you question your well-being. Also, if your symptoms do not improve in the next 12-24 hours, return to the ER or seek medical care immediately. 4. Be sure to follow up with your regular physician or specialist as instructed at discharge as this is the best way to ensure that you receive the very best of care. If you do not have a primary care physician, please contact a physician group and make an appointment. 5. Please visit [employer] for coupons regarding your prescriptions. It is a free service for you to use and can help reduce the cost of your medication. We would like to thank you for coming today and our hope is that we served you and your family wellduring your stay * Attachments The following attachments cannot be sent through Care Everywhere. * Peptic Ulcer Disease (Georgian) documented in this encounter Medications at Time of Discharge acetaminophen (TYLENOL) 500 mg tablet Take 2 tablets (1,000 mg total) by mouth every 6 (six) hours if needed for mild pain for up to 30 doses. 30 tablet 12/09/2024 albuterol HFA (Ventolin HFA) 90 mcg/actuation inhaler AMLODIPINE BESYLATE, BULK, MISC Take 20 mg by mouth 1 (one) time each day. ascorbic [id number] 1,000 mg powder effervescent in packet Take [...] topically 1 (one) time each day. 06/25/2018 omeprazole (PriLOSEC) [address] capsule Take 1 capsule (20 mg total) by mouth 1 (one) time each day. Do not crush or chew. 30 each 09/01/2025 5 oxyCODONE (ROXICODONE) 5 mg immediate release tablet Take 1 tablet (5 mg total) by mouth every 6 (six) hours if needed for severe pain. Max Daily Amount: 20 mg 15 tablet 12/09/2024 phentermine 15 mg capsule Take 1 Capsule by mouth every morning for 30 days. 03/24/2024 documented as of this encounter Ordered Prescriptions Prescription Sig Dispense Quantity Refills Last Filled Start Date End Date omeprazole (PriLOSEC) [address] capsule Take 1 capsule (20 mg total) by mouth 1 (one) time each day. Do not crush or chew. 30 each 09/01/2025 5 documented in this encounter Discharge Disposition Disposition Code Departure Means Destination Comment s Home or Self Care documented in this encounter Progress Notes * Skye Segura RN - 09/01/2025 2:03 PM EDT Pt to ed with reports of lower abdominal pain which radiates to her back. Intermittent for months. On occasion it goes for a few days and then subsides. Has been increasing for last few days. 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 pylori, GERD, fibromyalgia, arthritis, who reports experiencing new worsening pelvic pain for the past two weeks, which is severe and radiates to the back and leg. Patient reports that with the pain she has had some vomiting but no blood or black vomit. The pain is accompanied by a burning sensation during urination. Patient mentions the pain is different from chronic pain previously experienced, and now feels increased pressure. No history of kidney infection has been diagnosed, patient has been utilizing pain management patches for two weeks with little effect. Patient denies any fevers, nausea, diarrhea, chest pain, shortness of breath. Patient denies vaginal discha rge, vaginal odor or vaginal symptoms. No data recorded Patient History Medical History[1] Surgical History[2] Family History[3] Social History Tobacco Use Smoking status: Former Types: Cigarettes Smokeless tobacco: Never Substance Use Topics Alcohol use: No Drug use: Never Review of Systems Review of Systems Physical Exam ED Triage Vitals [09/01/25 1405] Temp Heart Rate Resp BP 36.5 ??C (97.7 ??F) 52 18 137/89 SpO2 Temp Source Heart Rate Source Patient Position 99 % Oral -- -- BP Location FiO2 (%) -- -- Physical Exam Vitals and nursing note reviewed. Constitutional: General: She is not in acute distress. Appearance: She is not ill-appearing, toxic-appearing or diaphoretic. HENT: Head: Normocephalic and atraumatic. Right Ear: External ear normal. Left Ear: External ear normal. Nose: Nose normal. No rhinorrhea. Eyes: Extraocular Movements: Extraocular movements intact. Conjunctiva/sclera: Conjunctivae normal. Cardiovascular: Rate and Rhythm: Normal rate. Comments: Well-perfused Pulmonary: Effort: Pulmonary effort is normal. No respiratory distress. Breath sounds: No stridor. Abdominal: General: Abdomen is flat. Bowel sounds are normal. There is no distension. Palpations: Abdomen is soft. Tenderness: There is generalized abdominal tenderness (TTP greatest at suprapubic and bilateral lower quadrants). There is right CVA tenderness and left CVA tenderness. There is no guarding or rebound. Negative signs include Johns's sign, Rovsing's sign and McBurney's sign. Hernia: No hernia is present. Musculoskeletal: General: No deformity. Normal range of motion. Cervical back: Normal range of motion and neck supple. No rigidity. Skin: General: Skin is dry. Coloration: Skin is not jaundiced or pale. Neurological: General: No focal deficit present. Mental Status: She is alert and oriented to person, place, and time. Mental status is at baseline. Coordination: Coordination normal. Psychiatric: Mood and Affect: Mood normal. Behavior: Behavior normal. Thought Content: Thought content normal. Judgment: Judgment normal. ED Course & MDM ED Course as of 09/01/25 1505 Wed Sep 01, 2025 1502 Hyaline Casts, Urine: 0.0 [LB] ED Course User Index [LB] LILIAM Sidhu Medical Decision Making Disclaimer: This is not a complete evaluation. The patient's assessment and management will continue in the Emergency Department. Chief Complaint Pelvic pain radiating to the back and leg, with burning sensation during urination. Summary of Presentation Pt presents with acute pelvic pain radiating to the back and leg, associated with dysuria for two weeks. Urinalysis shows trace blood, CBC is normal. CT abdomen is planned. Plan to advance to pelvic ultrasound as needed or indeterminant CT findings Differential Diagnosis Kidney Stones - Most likely given hematuria and pain radiating to the back. Urinary Tract Infection (UTI) - Dysuria suggests UTI, however, UA is negative. Dysuria likely due to hematuria. Pelvic Inflammatory Disease (PID) - Considered due to pelvic pain, but less likely without systemicsigns and patient without vaginal symptoms. Musculoskeletal Pain - Chronic pain history noted, but acute onset and hematuria make this less likely. Assessment Most likely renal colic secondary to kidney stones. Cannot rule out cause; musculoskeletal pain less likely. Plan Imaging: CT abdomen to evaluate for stones and other acute pathology. Labs: UA shows trace blood; CBC normal; monitor CMP and lipase. Pain Control: Continue analgesia while awaiting imaging. Monitoring: Observe for worsening pain, fever, or systemic symptoms. Procedures LILIAM Sidhu 09/01/25 1515 [1] Past Medical History: Diagnosis Date Arthritis Asthma [...] 05/29/2018 DX:Obesity, Class I, BMI 30-34.9 Pneumonia [2] Past Surgical History: Procedure Laterality Date LAPAROSCOPIC GASTRIC BANDING 11/2014 PROCEDURE: LAP ADJUSTABLE GASTRIC BAND LAPAROSCOPIC GASTRIC BANDING REMOVAL 1-2 YRS AGO PER PT [3] Family History Problem Relation Name Age of Onset Diabetes Mother Hypertension Mother Hyperlipidemia Mother LILIAM Sidhu 09/01/25 1517 Cosigned by Maricarmen Aleman MD at 09/01/2025 5:13 PM EDT Associated attestation - Maricarmen Aleman MD - 09/01/2025 5:13 PM EDT I was immediately available in the emergency department during this patient's care but did not perform history and physical nor participate in management decisions. 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 Patient states that this pain intermittently over the last several months. No fever, chills, nausea, vomiting, chest pain, shortness of breath. Triage note document that she had vomiting and blood in urine on occasion but denies any recent vomiting, hematemesis, or hematuria today. She doesendorse dysuria. She has a past surgical history of gastric banding. Triage note documents pelvic pain and vomiting. Patient describes her pain to me has a line across to her mid abdomen suprapubic or pelvic. No data recorded Patient History Medical History[1] Surgical History[2] Family History[3] Social History Tobacco Use Smoking status: Former Types: Cigarettes Smokeless tobacco: Never Substance Use Topics Alcohol use: No Drug use: Never Review of Systems Review of Systems Physical Exam ED Triage Vitals 09/01/25 1405 Temp Heart Rate Resp BP 36.5 ??C (97.7 ??F) 52 18 137/89 SpO2 Temp Source Heart Rate Source Patient Position 99 % Oral -- -- BP Location FiO2 (%) -- -- Physical Exam Vitals reviewed Pulse ox interpreted by me: Normal on room air - General: Adult, awake & alert, resting comfortably, no acute distress - HEENT: grossly NC/AT, PERRLA, EOMI, OP clear without exudates or erythema, MMM - Neck: Moving normally. No obvious deformities. No tenderness - Pulm: Good inspiratory effort. CTAB. Normal work of breathing on Room Air - CV: Regular rate, regular rhythm. No murmurs/rubs appreciated. - Chest wall: No chest wall bruising or lesions. - Abd/GI: Soft, ND. Generalized/mild tenderness to palpation, no rebound or guarding. - Back/Flanks: No skin findings. No tenderness. - MSK: Radial and DP pulses 2+ bilaterally. No lower extremity edema. - Neuro: Alert. Grossly oriented. Normal fluent speech. Moves all extremities well. Grossly no acute focal exam findings. - Derm: Warm and dry. No rashes noted. - Psych: Calm, cooperative, appropriate Additional findings:_ No midline cervical, thoracic or lumbar vertebral tenderness to palpation, no midline vertebral palpable step-offs, no overlying skin changes on the back. Pt has no bowel/bladder incontinence, saddle anesthesia, laura LE muscle strength 5/5, no babinski reflex elicited in either lower extremity on physical examination. ED Course & MDM ED Course as of 09/01/252052Sep 01, 2025 1502 Hyaline Casts, Urine: 0.0 [LB] 1941 CT Abdomen Pelvis w Contrast Impression: 1. Mild perigastric stranding and punctate foci of gas density in the region of the gastric cardia or fundus raises the possibility of small peptic ulcer. If unexplained symptoms persist, consider GI consult and/or endoscopy for further evaluation. 2. No other acute abnormalities or other CT explanation for pain. [RT] 2047 I discussed patient with the on-call automotive welder Dr. Hollnad, he recommends close follow-up with GI as an outpatient. He agrees with daily PPI and GI referral within 1 week. [RT] ED Course User Index [LB] LILIAM Sidhu [RT] Joseph Arango MD Clinical Impressions as of 09/01/252052 Abdominal pain, unspecified abdominal location Peptic ulcer Hematuria, unspecified type Medical Decision Making Patient is a 64-year-old female presenting with several days of worsening chronic low back pain andabdominal pain associate with vomiting. Vital signs are stable. Labs were notable for no significant electrolyte derangements, LFTs and T. bili stable, UA notable for blood, without infection, no leukocytosis or anemia. Patient has no midline spinal tenderness on exam, no focal neurological deficits and no back pain red flag symptoms. I have low suspicion for spinal cord compression, cauda equinasyndrome or epidural abscess and no further workup was pursued at this time. CT of the abdomen and pelvis was concerning for small peptic ulcer with recommendations for GI consult and endoscopy evaluation. Was given multimodal pain control. Patient patient's pain improved. Patient passed a p.o. challenge here in the ER. Patient also had blood in her urine I discussed with patient and her family at bedside this may be an early occasion for bladder cancer she follow-up with her primary care provider and discussed whether she requires additional testing. Considered broad differential diagnosis including but not limited to obstruction, acute appendicitis, cholecystitis, cholangitis, pancreatitis, pyelonephritis, nephrolithiasis, vascular catastrophe, all less likely given presentation workup today. No sign of bowel perforation, patient is hemodynamically stable. Vital signs remain within normal limits. I believe patient clinically stable he discharged home follow-up as an outpatient. Plan for daily omeprazole, avoid steroids, NSAIDs, tobacco and alcohol. Close follow-up with GI soon as possible. Patient was counseled re: their likely diagnosis and workup results today. Anticipatory guidance, supportive care, and return precautions were discussed with the patient who voiced understanding and is comfortable with the plan. Procedures Joseph Arango MD 09/01/251616 Joseph Arango MD 09/01/251953 Joseph Arango MD 09/01/252054 [1] Past Medical History: Diagnosis Date Arthritis Asthma [...] 05/29/2018 DX:Obesity, Class I, BMI 30-34.9 Pneumonia [2] Past Surgical History: Procedure Laterality Date LAPAROSCOPIC GASTRIC BANDING 11/2014 PROCEDURE: LAP ADJUSTABLE GASTRIC BAND LAPAROSCOPIC GASTRIC BANDING REMOVAL 1-2 YRS AGO PER PT [3] Family History Problem Relation Name Age of Onset Diabetes Mother Hypertension Mother Hyperlipidemia Mother Joseph Arango MD 09/01/252055 documented in this encounter Plan of Treatment Upcoming Encounters Date Type Department Care Team (Late st Contact Info) Description 03/25/2026 9:00 AM EDT Office Visit Gastroenterology - [place] [address] [address] Taniya Galdamez NP 175 [facility] [address] [place] [address] Scheduled Referrals Name Type Priority Associated Diagnoses Order Schedule Ambulatory referral to Gastroenterology Outpatient Referral Routine Expected: 2025, Expires: 09/01/2026 documented as of this encounter Procedures Procedure Name Priority Date/Time Associated Diagnosis Comments CT ABDOMEN PELVIS W CONTRAST STAT 09/01/2025 7:01 PM EDT URINALYSIS WITH REFLEX MICROSCOPIC AND CULTURE STAT 09/01/2025 2:31 PM EDT REBOLLEDO URINE CULTURE TUBE STAT 09/01/2025 2:31 PM EDT URINALYSIS WITH REFLEX MICROSCOPIC AND CULTURE STAT 09/01/2025 2:31 PM EDT CBC WITH AUTO DIFFERENTIAL STAT 09/01/2025 2:23 PM EDT CBC AND DIFFERENTIAL STAT 09/01/2025 2:23 PM EDT LIPASE STAT 09/01/2025 2:23 PM EDT COMPREHENSIVE METABOLIC PANEL STAT 09/01/2025 2:23 PM EDT documented in this encounter Results * CT Abdomen Pelvis w Contrast (09/01/2025 7:01 PM EDT) Anatomical Region Laterality Modality Body Computed Tomogra phy 09/01/2025 7:18 PM EDT Impressions 09/01/2025 7:18 PM EDT Impression: 1. Mild perigastric stranding and punctate foci of gas density in the region of the gastric cardia or fundus raises the possibility of small peptic ulcer. If unexplained symptoms persist, consider GI consult and/or endoscopy for further evaluation. 2. No other acute abnormalities or other CT explanation for pain. This document has been electronically signed by: Jacek Garcia MD on 09/01/2025 19:18:45 Narrative 09/01/2025 7:18 PM EDT INDICATION: Abdominal pain, acute, no prior medical history Exam: Contrast-enhanced CT abdomen and pelvis with multiplanar reformats. Comparison: 03/25/2025. Findings: CT abdomen: Lung bases appear clear. Liver is free of focal lesions and ductal dilatation. Gallbladder is absent. Spleen appears unremarkable. Pancreas and adrenal glands appear unremarkable. Kidneys appear unremarkable. No free intraperitoneal fluid or retroperitoneal masses or adenopathy. Abdominal aorta is normal caliber. Bowel loops reveal no abnormal wall thickening or distention. Remote postoperative changes related to apparent gastric sleeve procedure appear stable. There may be some mild perigastric stranding in the region of the gastric fundus with punctate gas densities (3; 30-32), raising the possibility of peptic ulcer disease. There is moderate colonic stool burden, primarily within right hemicolon. No significant diverticular disease. The appendix is not identified, however there is no secondary CT evidence of appendicitis. CT pelvis: Uterus and adnexal structures appear unremarkable. Urinary bladder is free of gross filling defects. No pelvic masses, fluid or adenopathy. Osseous structures reveal no destructive osseous lesions. Procedure Note Jacek Garcia MD - 09/01/2025 INDICATION: Abdominal pain, acute, no prior medical history Exam: Contrast-enhanced CT abdomen and pelvis with multiplanarreformats. Comparison: 03/25/2025. Findings: CT abdomen: Lung bases appear clear. Liver is free of focal lesions and ductal dilatation. Gallbladder is absent. Spleen appears unremarkable. Pancreas and adrenal glands appear unremarkable. Kidneys appear unremarkable. No free intraperitoneal fluid or retroperitoneal masses or adenopathy. Abdominal aorta is normal caliber. Bowel loops reveal no abnormal wall thickening or distention. Remote postoperative changes related to apparent gastric sleeve procedureappear stable. There may be some mild perigastric stranding in the region ofthe gastric fundus with punctate gas densities (3; 30-32), raising the possibility of peptic ulcer disease. There is moderate colonic stool burden, primarily within right hemicolon. No significant diverticular disease. The appendix is not identified, however there is no secondaryCT evidence of appendicitis. CT pelvis: Uterus and adnexal structures appear unremarkable. Urinary bladder is free of gross filling defects. No pelvic masses, fluid or adenopathy. Osseous structures reveal no destructive osseous lesions. IMPRESSION: Impression: 1. Mild perigastric stranding and punctate foci of gas density in the region of the gastric cardia or fundus raises the possibility of small peptic ulcer. If unexplained symptoms persist, consider GI consultand/or endoscopy for further evaluation. 2. No other acute abnormalities or other CT explanation for pain. This document has been electronically signed by: Jacek Garcia MD on 09/01/2025 19:18:[address] PROCEDURES Final Res ult * [place] urine culture tube (09/01/2025 2:31 PM EDT) Extra Tube Hold for add-ons. 09/01/2025 4:01 PM EDT [facility] Comment:Auto resulted. Urine Urine specimen obtained by clean catch procedure / Unknown Non-blood Collection / Unknown 09/01/2025 2:31 PM EDT 09/01/2025 2:41 PM EDT us Joseph Arango MD LAB URINE ORDERABLES Final Resul t [facility] [address] [place] [address], [place] [phone] * (ABNORMAL) Urinalysis with reflex microscopic and culture (09/01/2025 2:31 PM EDT) Specific [place] Urine 1.015 1.003 - 1.030 LAB URINALYSIS - AUTOMATED METHOD 09/01/2025 3:02 PM EDT [facility] pH, Urine 6.0 5.0 - 8.0 pH LAB URINALYSIS - AUTOMATED METHOD 09/01/2025 3:02 PM [facility] Leukocytes, Urine Negative Negative LAB URINALYSIS - AUTOMATED METHOD 09/01/2025 3:02 PM [facility] Nitrite, Urine Negative Negative LAB URINALYSIS - AUTOMATED METHOD 09/01/2025 3:02 PM [facility] Protein, Urine Negative <=Trace mg/dL LAB URINALYSIS - AUTOMATED METHOD 09/01/2025 3:02 PM [facility] Glucose, Urine Negative Negative mg/dL LAB URINALYSIS - AUTOMATED METHOD 09/01/2025 3:02 PM [facility] Ketones, Urine Negative Negative mg/dL LAB URINALYSIS - AUTOMATED METHOD 09/01/2025 3:02 PM [facility] Urobilinogen, Urine 0.2 0.2 - 1.0 mg/dL LAB URINALYSIS - AUTOMATED METHOD 09/01/2025 3:02 PM [facility] Bilirubin, Urine Negative Negative LAB URINALYSIS - AUTOMATED METHOD 09/01/2025 3:02 PM [facility] Blood, Urine Trace(A) Negative LAB URINALYSIS - AUTOMATED METHOD 09/01/2025 3:02 PM [facility] RBC, Urine 5.2(H) 0 - 4 /HPF LAB URINALYSIS - AUTOMATED METHOD 09/01/2025 3:02 PM EDT [facility] WBC, Urine 0.4 0 - 4 /HPF LAB URINALYSIS - AUTOMATED METHOD 09/01/2025 3:02 PM EDT [facility] Squamous Epithelial, Urine 15 0 - 60 /LPF LAB URINALYSIS - AUTOMATED METHOD 09/01/2025 3:02 PM EDT [facility] Bacteria, Urine Negative Negative /HPF LAB URINALYSIS - AUTOMATED METHOD 09/01/2025 3:02 PM EDT [facility] Hyaline Casts, Urine 0.0 0 - 3 /LPF LAB URINALYSIS - AUTOMATED METHOD 09/01/2025 3:02 PM EDT [facility] [facility] Urine Urine specimen obtained by clean catch procedure / Unknown Non-blood Collection / Unknown 09/01/2025 2:31 PM EDT 09/01/2025 2:41 PM EDT us Joseph Arango MD LAB URINE ORDERABLES Final Resul t [facility] [address] [place] [address], * CBC auto differential (09/01/2025 2:23 PM EDT) WBC 6.8 4.8 - 10.8 K/mcL LAB HEMETOLOGY METHOD 09/01/2025 2:56 PM EDT [facility] RBC 3.90 3.80 - 4.80 M/mcL LAB HEMETOLOGY METHOD 09/01/2025 2:56 PM EDT [facility] Hemoglobin 11.7 11.5 - 16.0 g/dL LAB HEMETOLOGY METHOD 09/01/2025 2:56 PM EDT [facility] Hematocrit 36.1 35.0 - 47.0 % LAB HEMETOLOGY METHOD 09/01/2025 2:56 PM EDT [facility] MCV 93.0 79.0 - 98.0 FL LAB HEMETOLOGY METHOD 09/01/2025 2:56 PM EDT [facility] MCH 30.2 27.0 - 32.0 pcg LAB HEMETOLOGY METHOD 09/01/2025 2:56 PM EDT [facility] MCHC 32.4 32.0 - 37.0 g/dL LAB HEMETOLOGY METHOD 09/01/2025 2:56 PM EDT [facility] RDW 13.8 11.0 - 15.0 % LAB HEMETOLOGY METHOD 09/01/2025 2:56 PM EDT [facility] Platelets 309 130 - 400 K/mcL LAB HEMETOLOGY METHOD 09/01/2025 2:56 PM EDT [facility] MPV 10.1 7.0 - 11.0 FL LAB HEMETOLOGY METHOD 09/01/2025 2:56 PM EDT [facility] NRBC 0.0 <1.0 % LAB HEMETOLOGY METHOD 09/01/2025 2:56 PM EDT [facility] NRBC Absolute 0.00 <0.10 K/mcL LAB HEMETOLOGY METHOD 09/01/2025 2:56 PM EDT [facility] Neutrophils Relative 70.2 % LAB HEMETOLOGY METHOD 09/01/2025 2:56 PM EDT [facility] Lymphocytes Relative 21.0 % LAB HEMETOLOGY METHOD 09/01/2025 2:56 PM EDT [facility] Monocytes Relative 6.5 % LAB HEMETOLOGY METHOD 09/01/2025 2:56 PM EDT [facility] Eosinophils Relative 1.5 % LAB HEMETOLOGY METHOD 09/01/2025 2:56 PM EDT [facility] Basophils Relative 0.7 % LAB HEMETOLOGY METHOD 09/01/2025 2:56 PM EDT [facility] Immature Granulocytes Relative 0.1 % LAB HEMETOLOGY METHOD 09/01/2025 2:56 PM EDT [facility] Neutrophils Absolute 4.78 1.50 - 7.00 K/mcL LAB HEMETOLOGY METHOD 09/01/2025 2:56 PM EDT [facility] Lymphocytes Absolute 1.43 1.00 - 5.00 K/mcL LAB HEMETOLOGY METHOD 09/01/2025 2:56 PM EDT [facility] Monocytes Absolute 0.44 0.20 - 1.00 K/mcL LAB HEMETOLOGY METHOD 09/01/2025 2:56 PM EDT [facility] Eosinophils Absolute 0.10 0.00 - 0.50 K/mcL LAB HEMETOLOGY METHOD 09/01/2025 2:56 PM EDT [facility] Basophils Absolute 0.05 0.00 - 0.20 K/mcL LAB HEMETOLOGY METHOD 09/01/2025 2:56 PM EDT [facility] Immature Granulocytes Absolute 0.01 0.00 - 0.03 K/mcL LAB HEMETOLOGY METHOD 09/01/2025 2:56 PM EDT [facility] Blood Venous blood specimen / Unknown Venipuncture / Unknown 09/01/2025 2:23 PM EDT 09/01/2025 2:42 PM EDT us Joseph Arango MD LAB BLOOD ORDERABLES Final Resul t [facility] [address] [place] [address], * Lipase (09/01/2025 2:23 PM EDT) Lipase 40 13 - 75 unit/L LAB CHEMISTRY METHOD 09/01/2025 3:28 PM EDT [facility] Blood Venous blood specimen / Unknown Venipuncture / Unknown 09/01/2025 2:23 PM EDT 09/01/2025 2:42 PM EDT Joseph Arango MD LAB BLOOD ORDERABLES Final Resul t [facility] [address] [place] [address], * (ABNORMAL) Comprehensive metabolic panel (09/01/2025 2:23 PM EDT) Sodium 139 133 - 145 mmol/L LAB CHEMISTRY METHOD 09/01/2025 3:28 PM [facility] Potassium 4.5 3.5 - 5.5 mmol/L LAB CHEMISTRY METHOD 09/01/2025 3:28 PM [facility] Chloride 107 96 - 110 mmol/L LAB CHEMISTRY METHOD 09/01/2025 3:28 PM [facility] CO2 28 21 - 32 mmol/L LAB CHEMISTRY METHOD 09/01/2025 3:28 PM [facility] Anion Gap 4 3 - 11 LAB CHEMISTRY METHOD 09/01/2025 3:28 PM [facility] Glucose 103(H) 70 - 100 mg/dL LAB CHEMISTRY METHOD 09/01/2025 3:28 PM [facility] BUN 21 5 - 25 mg/dL LAB CHEMISTRY METHOD 09/01/2025 3:28 PM [facility] Creatinine 0.86 0.50 - 1.10 mg/dL LAB CHEMISTRY METHOD 09/01/2025 3:28 PM [facility] eGFR 75 >=60 mL/min/1. 73m2 LAB CHEMISTRY METHOD 09/01/2025 3:28 PM [facility] Comment:Calculation based on the Chronic Kidney Disease Epidemiology Collaboration (CKD-EPI) equation refit without adjustment for race. BUN/Creatinine Ratio 24.4 LAB CHEMISTRY METHOD 09/01/2025 3:28 PM EDT [facility] Calcium 9.8 8.5 - 10.5 mg/dL LAB CHEMISTRY METHOD 09/01/2025 3:28 PM EDT [facility] AST (SGOT) 22 10 - 42 unit/L LAB CHEMISTRY METHOD 09/01/2025 3:28 PM [facility] ALT (SGPT) 29 10 - 60 unit/L LAB CHEMISTRY METHOD 09/01/2025 3:28 PM EDT [facility] Alkaline Phosphatase 89 42 - 121 unit/L LAB CHEMISTRY METHOD 09/01/2025 3:28 PM T [facility] Total Protein 7.0 6.0 - 8.0 g/dL LAB CHEMISTRY METHOD 09/01/2025 3:28 PM [facility] Albumin 3.5 3.2 - 5.0 g/dL LAB CHEMISTRY METHOD 09/01/2025 3:28 PM EDT [facility] Total Bilirubin 0.3 0.0 - 1.4 mg/dL LAB CHEMISTRY METHOD 09/01/2025 3:28 PM T [facility] Blood Venous blood specimen / Unknown Venipuncture / Unknown 09/01/2025 2:23 PM EDT 09/01/2025 2:42 PM EDT us Joseph Arango MD LAB BLOOD ORDERABLES Final Resul t [facility] [address] [place] [address], documented in this encounter Visit Diagnoses Diagnosis Peptic ulcer- Primary Peptic ulcer, unspecified site, unspecified as acute or chronic, without mention of hemorrhage, perforation, or obstruction Abdominal pain, unspecified abdominal location Hematuria, unspecified type documented in this encounter Administered Medications Inactive Administered Medications - up to 3 most recent administrations Medication Order MAR Action Action Date Dose Rate Site acetaminophen (TYLENOL) tablet 1,000 mg 1,000 mg, oral, Once, On Sat09/01/25 at 1521, For 1 dose Given 09/01/2025 5:11 PM EDT 1,000 mg famotidine (PF) (PEPCID) injection 20 mg 20 mg, intravenous, Administer over 2 Minutes, Once, On Sat09/01/25 at 1942, For 1 dose Given 09/01/2025 7:54 PM EDT 20 mg iopamidoL (ISOVUE-370) 370 mg iodine /mL (76 %) injection 100 mL 100 mL, intravenous, Once in imaging, Starting on Sat09/01/25 at 1850, For 1 dose Given 09/01/2025 6:51 PM EDT 90 mL ketorolac (TORADOL) injection 15 mg 15 mg, intramuscular, Once, On Sat09/01/25 at 1521, For 1 dose Given 09/01/2025 5:10 PM EDT 15 mg Left Deltoid ondansetron (PF) (ZOFRAN) injection 4 mg 4 mg, intravenous, Once, On Sat09/01/25 at 1954, For 1 dose Given 09/01/2025 8:01 PM EDT 4 mg sodium chloride 0.9 % flush 10 mL 10 mL, intravenous, Once, On Sat09/01/25 at 1852, For 1 dose Given 09/01/2025 6:51 PM EDT 10 mL documented in this encounter Active and Recently Administered Medications Times are shown in EDT. Scheduled Medication Order 08/30/2025 08/31/2025 09/01/2025 acetaminophen (TYLENOL) tablet 1,000 mg (COMPLETED) 1,000 mg, oral, Once, On Sat09/01/25 at 1521, For 1 dose 1710 (Given - Provid er: Tara Lewis RN - Comment: ordered prior to pt in treatment area) famotidine (PF) (PEPCID) injection 20 mg (COMPLETED) 20 mg, intravenous, Administer over 2 Minutes, Once, On Sat09/01/25 at 1942, For 1 dose 1953 (Given - Provid er: Inez Harris RN) iopamidoL (ISOVUE-370) 370 mg iodine /mL (76 %) injection 100 mL (COMPLETED) 100 mL, intravenous, Once in imaging, Starting on Sat09/01/25 at 1850, For 1 dose 185 (Given - Provid er: Maia Taylor) ketorolac (TORADOL) injection 15 mg (COMPLETED) 15 mg, intramuscular, Once, On Sat09/01/25 at 1521, For 1 dose 1710 (Given - Provid er: Tara Lewis RN - Comment: ordered prior to pt in treatment area) ondansetron (PF) (ZOFRAN) injection 4 mg (COMPLETED) 4 mg, intravenous, Once, On Sat09/01/25 at 1954, For 1 dose 2000 (Given - Provid er: Inez Harris RN) sodium chloride 0.9 % flush 10 mL (COMPLETED) 10 mL, intravenous, Once, On Sat09/01/25 at 1852, For 1 dose 1850 (Given - Provid er: Maia Taylor) documented in this encounter Orders Transfer Count Last Ordered Date First Orde red Date ED TO FLOOR BED REQUEST 1 09/01/2025 documented in this encounter Care Teams Mechanical Developer Prover Relationship Specialty Start Date End Date Mary Jo Conteh MD [address] [facility] , [address] [facility] [place], [place] PCP - General Internal Medicine 05/28/18 documented as of this encounter
--- OUTSIDE RECORDS SUMMARY | 2025-09-03 12:38 | XMS_ITS | Clinical Summary ---
Author Organization [facility] Address [address] [place] [address] Phone Care Team Providers Care Coding Support Specialist Name Role Phone Mary Jo Ascencio MD [...] file Medical Devices Not on file Insurance [facility] [address] [place] [address] ACO Member Subscriber Plan / Payer (Ef fective 2019-Present) Name:Maura Travis Relation to Subscriber:Self Name:Maura Travis Payer ID:[id number] Group ID:[id number] Type:Medicaid Address: [address] ACO [facility] ACO Member Subscriber Plan / Payer (Ef fective 2019-Present) Name:Maura Travis Relation to Subscriber:Self Name:Maura Travis Payer ID:[id number] Group ID:[id number] Type:Medicaid Address: [address] ACO Member Subscriber Plan / Payer (Ef fective 2019-Present) Name:Maura Travis Relation to Subscriber:Self Name:Maura Travis Payer ID:[id number] Group ID:[id number] Type:Medicaid Address: [address] [place] [address] ACO Member Subscriber Plan / Payer (Ef fective 2019-Present) Name:Maura Travis Relation to Subscriber:Self Name:Maura Travis Payer ID:[id number] Group ID:[id number] Type:Medicaid Address: [address] [place] [address] ACO Member Subscriber Plan / Payer (Ef fective 2019-Present) Name:Maura Travis Relation to Subscriber:Self Name:Maura Travis Payer ID:[id number] Group ID:[id number] Type:Medicaid Address: [address] ACO [facility] ACO Member Subscriber Plan / Payer (Ef fective 2019-Present) Name:Maura Travis Relation to Subscriber:Self Name:Maura Travis Payer ID:[id number] Group ID:[id number] Type:Medicaid Address: [address] [place] [address] ACO Member Subscriber Plan / Payer (Ef fective 2019-Present) Name:Maura Travis Relation to Subscriber:Self Name:Muara Travis Payer ID:[id number] Group ID:[id number] Type:Medicaid Address: [address] [place] [address] ACO Member Subscriber Plan / Payer (Ef fective 2019-Present) Name:Maura Travis Relation to Subscriber:Self Name:Maura Travis Payer ID:[id number] Group ID:[id number] Type:Medicaid Address: [address] ACO Care Teams Coding Support Specialist Relationship Specialty Start Date End Date Mary Jo Ascencio MD [address] [place] [address] PCP - General 06/04/19 Additional Source Comments The information contained in this document represents components of the legal health record. It is not the complete legal health record.[facility]
--- OUTSIDE RECORDS SUMMARY | 2025-09-03 12:38 | XMS_ITS | Clinical Summary ---
Author Organization 175 [facility] Address [address] [place] [address] Phone Care Team Providers Care Highway Maintainer Name Role Phone Mary Jo Conteh MD Primary Care Provider [phone] Allergies No known active allergies Medications albuterol [...] 1 (one) time each day. Active ascorbic hvux-ldlyabte-xi n 1,000 mg powder effervescent in packet [...] for muscle spasms. 90 capsule 5 Active omeprazole (PriLOSEC) [address] capsule Take 1 capsule (20 mg total) by mouth 1 (one) time each day. Do not crush or chew. 30 each 5 10/01/20 25 Active Active Problems Problem Noted Date Diagnosed Date Facial rhytids 10/03/2020 Calculus of gallbladder with chronic cholecystitis without obstruction 09/14/2020 Asthma 05/29/2018 Hypercholesteremia 05/29/2018 Obesity, Class I, BMI 30-34.9 05/29/2018 Resolved Problems Problem Noted Date Diagnosed Date Resolved Date Umbilical hernia 11/19/2024 12/09/2024 Encounters Date Type Department Care Team Description 09/01/2025 4:51 PM EDT - 09/01/2025 9:12 PM EDT Emergency [facility] Emergency [address] [place] [address] Joseph Arango MD Peptic ulcer (Primary Dx); Abdominal pain, unspecified abdominal location; Hematuria, unspecified type Discharge Disposition: Home or Self Care 06/27/2025 12:20 PM EDT - 06/27/2025 4:46 PM EDT Emergency [facility] Emergency [address] [place] [address] Saud Solano MD Lumbar strain, initial encounter [...] Mass Index 29.1 09/01/2025 2:05 PM EDT Plan of Treatment Upcoming Encounters Date Type Department Care Team (Late st Contact Info) Description 03/25/2026 9:00 AM EDT Office Visit Gastroenterology - [place] 175 [facility] 175 [facility] [address] [place] [phone] Taniya Galdamez NP 175 [facility] [address] [place] [address] Health Maintenance Due Date Last Done Comments Breast Cancer Screening 1960 Colorectal Cancer Screening: Colonoscopy 1960 RSV Immunization Adult Patients (1 - Risk 50-74 years 1-dose series) 2008 Zoster Vaccines (2 of 2) 09/22/2020 07/28/2020 Cholesterol Screening (Lipid Panel) 10/21/2022 Hepatitis C Screening 10/21/2022 Medicare Annual Wellness Visit 10/21/2022 Osteoporosis Screening (Bone Density Screening) 10/21/2022 Social Influencers of Health Screening 10/21/2022 Falls Risk Assessment 2023 Depression Screening 11/18/2024 COVID-19 Vaccine ( season) 2025 10/18/2022, 11/01/2021, 03/10/2021, Additional history exists Hypertension/CHF/CAD Annual BMP Blood Test 09/01/2026 09/01/2025, 03/25/2025, 01/26/2025, Additional history exists DTaP,Tdap,and Td Vaccines (3 - Td or Tdap) 08/16/2035 08/16/2025, 12/31/2008 Pneumococcal Vaccine: 50+ Years Completed 09/14/2024, 09/28/2023, 07/28/2020, Additional history exists Influenza Vaccine Completed 08/12/2025, , 08/07/2023, Additional history exists HIB Vaccines Aged Out [...] this topic Medical Devices Implanted Type Area Electronic Court Recorder Device Identifier Shelf Expiration Date Model / Serial / Lot Mesh Ventralex St 1.7in Sm Gray [place] W/Strap - Sn/A - [id number] Implanted:Qty: 1 on 12/09/2024 by Griffin Loya MD at [facility] Surgical Mesh Sling Implants N/A: Umbilical CR BARD - DAVOL DIV [id number] / N/A / N/A Procedures Procedure Name Priority Date/Time Associated Diagnosis Comments CT ABDOMEN PELVIS W CONTRAST STAT 09/01/2025 7:01 PM EDT REBOLLEDO URINE CULTURE TUBE STAT 09/01/2025 2:31 PM EDT URINALYSIS WITH REFLEX MICROSCOPIC AND CULTURE STAT 09/01/2025 2:31 PM EDT URINALYSIS WITH REFLEX MICROSCOPIC AND CULTURE STAT 09/01/2025 2:31 PM EDT CBC WITH AUTO DIFFERENTIAL STAT 09/01/2025 2:23 PM EDT LIPASE STAT 09/01/2025 2:23 PM EDT COMPREHENSIVE METABOLIC PANEL STAT 09/01/2025 2:23 PM EDT CBC AND DIFFERENTIAL STAT 09/01/2025 2:23 PM EDT XR THORACIC SPINE 2 VIEWS STAT 06/27/2025 3:17 PM EDT XR LUMBAR SPINE 2-3 VIEWS STAT 06/27/2025 3:17 PM EDT from Last 3 Months Results [...] Garcia MD on 09/01/2025 19:18:[address] PROCEDURES Final Res ult * (ABNORMAL) Urinalysis with reflex microscopic and culture (09/01/2025 2:31 PM EDT) Specific [place] Urine 1.015 1.003 - 1.030 LAB URINALYSIS - AUTOMATED METHOD 09/01/2025 3:02 PM [facility] pH, Urine 6.0 5.0 - 8.0 pH LAB URINALYSIS - AUTOMATED METHOD 09/01/2025 3:02 PM [facility] Leukocytes, Urine Negative Negative LAB URINALYSIS - AUTOMATED METHOD 09/01/2025 3:02 PM [facility] Nitrite, Urine Negative Negative LAB URINALYSIS - AUTOMATED METHOD 09/01/2025 3:02 PM [facility] Protein, Urine Negative <=Trace mg/dL LAB URINALYSIS - AUTOMATED METHOD 09/01/2025 3:02 PM [facility] Glucose, Urine Negative Negative mg/dL LAB URINALYSIS - AUTOMATED METHOD 09/01/2025 3:02 PM [facility] Ketones, Urine Negative Negative mg/dL LAB URINALYSIS - AUTOMATED METHOD 09/01/2025 3:02 PM [facility] Urobilinogen, Urine 0.2 0.2 - 1.0 mg/dL LAB URINALYSIS - AUTOMATED METHOD 09/01/2025 3:02 PM EDT [facility] Bilirubin, Urine Negative Negative LAB URINALYSIS - AUTOMATED METHOD 09/01/2025 3:02 PM EDT [facility] Blood, Urine Trace(A) Negative LAB URINALYSIS - AUTOMATED METHOD 09/01/2025 3:02 PM [facility] RBC, Urine 5.2(H) 0 - 4 /HPF LAB URINALYSIS - AUTOMATED METHOD 09/01/2025 3:02 PM T [facility] WBC, Urine 0.4 0 - 4 /HPF LAB URINALYSIS - AUTOMATED METHOD 09/01/2025 3:02 PM [facility] Squamous Epithelial, Urine 15 0 - 60 /LPF LAB URINALYSIS - AUTOMATED METHOD 09/01/2025 3:02 PM [facility] Bacteria, Urine Negative Negative /HPF LAB URINALYSIS - AUTOMATED METHOD 09/01/2025 3:02 PM [facility] Hyaline Casts, Urine 0.0 0 - 3 /LPF LAB URINALYSIS - AUTOMATED METHOD 09/01/2025 3:02 PM [facility] Urine Urine specimen obtained by clean catch procedure / Unknown Non-blood Collection / Unknown 09/01/2025 2:31 PM EDT 09/01/2025 2:41 PM EDT us Joseph Arango MD LAB URINE ORDERABLES Final Resul t [facility] [address] [place] [address], * Rebolledo urine culture tube (09/01/2025 2:31 PM EDT) Extra Tube Hold for add-ons. 09/01/2025 4:01 PM EDT [facility] Comment:Auto resulted. Urine Urine specimen obtained by clean catch procedure / Unknown Non-blood Collection / Unknown 09/01/2025 2:31 PM EDT 09/01/2025 2:41 PM EDT us Joseph Arango MD LAB URINE ORDERABLES Final Resul t [facility] [address] [place] [address], * CBC auto differential (09/01/2025 2:23 PM EDT) WBC 6.8 4.8 - 10.8 K/mcL LAB HEMETOLOGY METHOD 09/01/2025 2:56 PM EDT [facility] RBC 3.90 3.80 - 4.80 M/mcL LAB HEMETOLOGY METHOD 09/01/2025 2:56 PM EDT [facility] Hemoglobin 11.7 11.5 - 16.0 g/dL LAB HEMETOLOGY METHOD 09/01/2025 2:56 PM EDT [facility] Hematocrit 36.1 35.0 - 47.0 % LAB HEMETOLOGY METHOD 09/01/2025 2:56 PM EDT [facility] MCV 93.0 79.0 - 98.0 FL LAB HEMETOLOGY METHOD 09/01/2025 2:56 PM EDT [facility] MCH 30.2 27.0 - 32.0 pcg LAB HEMETOLOGY METHOD 09/01/2025 2:56 PM EDT [facility] MCHC 32.4 32.0 - 37.0 g/dL LAB HEMETOLOGY METHOD 09/01/2025 2:56 PM EDT [facility] RDW 13.8 11.0 - 15.0 % LAB HEMETOLOGY METHOD 09/01/2025 2:56 PM EDT [facility] Platelets 309 130 - 400 K/mcL LAB HEMETOLOGY METHOD 09/01/2025 2:56 PM EDT [facility] MPV 10.1 7.0 - 11.0 FL LAB HEMETOLOGY METHOD 09/01/2025 2:56 PM EDT [facility] NRBC 0.0 <1.0 % LAB HEMETOLOGY METHOD 09/01/2025 2:56 PM EDT [facility] NRBC Absolute 0.00 <0.10 K/mcL LAB HEMETOLOGY METHOD 09/01/2025 2:56 PM EDT [facility] Neutrophils Relative 70.2 % LAB HEMETOLOGY METHOD 09/01/2025 2:56 PM EDT [facility] Lymphocytes Relative 21.0 % LAB HEMETOLOGY METHOD [facility]25 [facility] Monocytes Relative 6.5 % LAB HEMETOLOGY METHOD 09/01/2025 2:56 PM EDT [facility] Eosinophils Relative 1.5 % LAB HEMETOLOGY METHOD 09/01/2025 2:56 PM EDT [facility] Basophils Relative 0.7 % LAB HEMETOLOGY METHOD 09/01/2025 2:56 PM [facility] Immature Granulocytes Relative 0.1 % LAB HEMETOLOGY METHOD 09/01/2025 2:56 PM [facility] Neutrophils Absolute 4.78 1.50 - 7.00 K/mcL LAB HEMETOLOGY METHOD 09/01/2025 2:56 PM EDT [facility] Lymphocytes Absolute 1.43 1.00 - 5.00 K/mcL LAB HEMETOLOGY METHOD 09/01/2025 2:56 PM EDT [facility] Monocytes Absolute 0.44 0.20 - 1.00 K/mcL LAB HEMETOLOGY METHOD 09/01/2025 2:56 PM EDT [facility] Eosinophils Absolute 0.10 0.00 - 0.50 K/mcL LAB HEMETOLOGY METHOD 09/01/2025 2:56 PM EDT [facility] Basophils Absolute 0.05 0.00 - 0.20 K/[facility] LAB HEMETOLOGY METHOD 09/01/2025 2:56 PM EDT [facility] Immature Granulocytes Absolute 0.01 0.00 - 0.03 K/[facility] LAB HEMETOLOGY METHOD 09/01/2025 2:56 PM EDT [facility] Blood Venous blood specimen / Unknown Venipuncture / Unknown 09/01/2025 2:23 PM EDT 09/01/2025 2:42 PM EDT us Joseph Arango MD LAB BLOOD ORDERABLES Final Resul t Performing Organization Address [facility] Co de Phone Number [facility] [address] [place] [address], [place] [phone] * Lipase (09/01/2025 2:23 PM EDT) Lipase 40 13 - 75 unit/L LAB CHEMISTRY METHOD 09/01/2025 3:28 PM EDT [facility] Blood Venous blood specimen / Unknown Venipuncture / Unknown 09/01/2025 2:23 PM EDT 09/01/2025 2:42 PM EDT us Joseph Arango MD LAB BLOOD ORDERABLES Final Resul t Performing Organization Address City/[facility]/ZIP Co de Phone Number [facility] [address] [place] [address], [place] [phone] * (ABNORMAL) Comprehensive metabolic panel (09/01/2025 2:23 PM EDT) Sodium 139 133 - 145 mmol/L LAB CHEMISTRY METHOD 09/01/2025 3:28 PM EDT [facility] Potassium 4.5 3.5 - 5.5 mmol/L LAB CHEMISTRY METHOD 09/01/2025 3:28 PM [facility] Chloride 107 96 - 110 mmol/L LAB CHEMISTRY METHOD 09/01/2025 3:28 PM [facility] CO2 28 21 - 32 mmol/L LAB CHEMISTRY METHOD 09/01/2025 3:28 PM [facility] Anion Gap 4 3 - 11 LAB CHEMISTRY METHOD 09/01/2025 3:28 PM [facility] Glucose 103(H) 70 - 100 mg/dL LAB CHEMISTRY METHOD 09/01/2025 3:28 PM [facility] BUN 21 5 - 25 mg/dL LAB CHEMISTRY METHOD 09/01/2025 3:28 PM [facility] Creatinine 0.86 0.50 - 1.10 mg/dL LAB CHEMISTRY METHOD 09/01/2025 3:28 PM [facility] eGFR 75 >=60 mL/min/1. 73m2 LAB CHEMISTRY METHOD 09/01/2025 3:28 PM [facility] Comment:Calculation based on the Chronic Kidney Disease Epidemiology Collaboration (CKD-EPI) equation refit without adjustment for race. BUN/Creatinine Ratio 24.4 LAB CHEMISTRY METHOD 09/01/2025 3:28 PM [facility] Calcium 9.8 8.5 - 10.5 mg/dL LAB CHEMISTRY METHOD 09/01/2025 3:28 PM [facility] AST (SGOT) 22 10 - 42 unit/L LAB CHEMISTRY METHOD 09/01/2025 3:28 PM [facility] ALT (SGPT) 29 10 - 60 unit/L LAB CHEMISTRY METHOD 09/01/2025 3:28 PM [facility] Alkaline Phosphatase 89 42 - 121 unit/L LAB CHEMISTRY METHOD 09/01/2025 3:28 PM [facility] Total Protein 7.0 6.0 - 8.0 g/dL LAB CHEMISTRY METHOD 09/01/2025 3:28 PM [facility] Albumin 3.5 3.2 - 5.0 g/dL LAB CHEMISTRY METHOD 09/01/2025 3:28 PM EDT [facility] Total Bilirubin 0.3 0.0 - 1.4 mg/dL LAB CHEMISTRY METHOD 09/01/2025 3:28 PM EDT [facility] Blood Venous blood specimen / Unknown Venipuncture / Unknown 09/01/2025 2:23 PM EDT 09/01/2025 2:42 PM EDT us Joseph Arango MD LAB BLOOD ORDERABLES Final Resul t [facility] [address] [place] [address], [place] [phone] * XR Lumbar Spine 2-3 Views (06/27/2025 [...] Signed Date: 06/27/2025 15:28 ET Workstation ID: [id number] Transcribed By: Self Edit Transcribed Date: 06/27/2025 [...] Signed Date: 06/27/2025 15:28 ET Workstation ID: [id number] Transcribed By: Self Edit Transcribed Date: 06/27/2025 [...] Signed Date: 06/27/2025 15:27 ET Workstation ID: [id number] Transcribed By: Self Edit Transcribed Date: 06/27/2025 [...] Signed Date: 06/27/2025 15:27 ET Workstation ID: [id number] Transcribed By: Self Edit Transcribed Date: 06/27/2025 15:26 ET us Saud Solano MD IMG XR PROCEDURES Final Res ult from Last 3 Months Insurance [employer] MEDICARE Member Subscriber Plan / Payer (Ef fective 2023-Present) Name:Winston, Maura Relation to Subscriber:Self Name:AngyMaura Schroeder Payer ID:[id number] Group ID:[id number] Type:Not on file Address: [place] [facility] [place] [address] Advance Directives Documents on File Type Date 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 Care Teams Highway Maintainer Relationship Specialty Start Date End Date Mary Jo Conteh MD [address] [place] [address] , [address] [facility] Physician Associ D/B/A: Karri Duarte In Internal Medicine CARLOS MANUEL Zeng PCP - General Internal Medicine 05/28/18
[2025-09-16 16:12] VITALS: BMI 29.5
--- NOTE | 2025-09-17 09:21 | P.CONAN_ITS ---
Documented by User: Candelaria Ramos NP 09/17/25 09:54 HPI - Anesthesia Eval Consult details Narrative: 65yo F for Cystoscopy Hydrodistention of Bladder s/p EGD and [place] 02/2025 with TIVA [place] [facility] [id number] for PVC's mild enlarged TAA. Stable at 03/2025 office visit for 2 year f/u [facility] Active Problems Active Problems: All Active Problems Microscopic hematuria (Acute) Chronic interstitial cystitis (Acute) Gastric ulcer (Acute) GERD (gastroesophageal reflux disease) (Acute) Pelvic pain in female (Acute) Thoracic spine pain (Acute) Lumbar pain (Acute) Neck pain (Acute) Dysuria (Acute) Upper abdominal pain (Acute) Conjunctivitis (Acute) Left knee pain (Acute) Thyroid nodule (Acute) Hematuria (Acute) Acute pyelonephritis (Acute) Urge urinary incontinence (Acute) Mild asthma (Acute) Dyspnea (Acute) Chronic pain syndrome (Acute) Left hip pain (Acute) Lumbar spondylosis (Acute) Discogenic low back pain (Acute) Lumbar radiculitis (Acute) Screen for colon cancer (Acute) Lumbar pain (Acute) B12 deficiency (Acute) Bladder pain (Acute) Interstitial cystitis (Acute) Generalized abdominal pain (Acute) PVCs (premature ventricular contractions) (Acute) Pure hypercholesterolemia (Acute) Breast mass, right (Acute) Gross hematuria (Acute) Microscopic hematuria (Acute) Cervical polyp (Acute) Pelvic pain (Acute) Needle exposure (Acute) Physical exam (Acute) Dysuria (Acute) Pre-op examination (Acute) Abdominal pain (Acute) Enlarged thoracic aorta (Acute) Hepatomegaly (Acute) HTN (hypertension) (Acute) Microscopic hematuria (Acute) Murmur (Acute) Frequent UTI (Acute) Iron deficiency anemia (Acute) Dysuria (Acute) Labile blood glucose (Acute) Anemia (Chronic) Dyslipidemia (Acute) Pernicious anemia (Acute) Cervicalgia of blqdywhu-wogbhuw-mvgfv region (Acute) Nontoxic multinodular goiter (Acute) Paget's disease (Acute) Vitamin D deficiency (Acute) Osteoporosis (Acute) Past Medical History Medical History Enlarged thoracic aorta Intussusception Hepatomegaly Microscopic hematuria Murmur Frequent UTI Iron deficiency anemia Dysuria Labile blood glucose Anemia Dyslipidemia Pernicious anemia Cervicalgia of hzjwvjkp-hpfgnis-gpodx region Vitamin D deficiency Osteoporosis 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 Asthma Paget's disease Fibromyalgia Nontoxic multinodular goiter Osteoarthritis HTN (hypertension) Family History Family History Mother Diabetes HTN (hypertension) Father Pancreatic cancer Diabetes HTN (hypertension) Maternal Grandmother Myocardial infarction Cancer Brother Pancreatic cancer Sister Uterine cancer Family history of problems with anesthesia: No Surgical History Surgical History Hx of hernia repair History of esophagogastroduodenoscopy (EGD) H/O colonoscopy History of excision of mass (08/21/23) History of removal of laparoscopic gastric banding device History of cystoscopy History of lobectomy of thyroid Mass of right parotid gland H/O laparoscopic adjustable gastric banding Hx of lithotripsy History of dilation and curettage History of delivery Hx of tonsillectomy Hx of gastric bypass History of Problems with Anesthesia: No Social History Social History Household Members: Family Housing: House Are you a primary sub acute care nurse to a significant other at home: No Do you presently have visiting nurse or other home services: No Alcohol intake: never Patient Tobacco Use Status: Former Tobacco user Tobacco use type: Cigarette e-Cigarette/Vaping Use: Never Used Second Hand Smoke Exposure: No Have you been hit, kicked, punched, or otherwise hurt by someone within the past year? If so, by whom?: No Are you DNR?: No Advance Directives: No Advance Directives Information Provided: No service: No Current occupational status: unemployed and disabled Sexual orientation: Straight/Heterosexual Gender identity: Female Cognitive needs: No Hearing needs: No Vision needs: Yes (glasses) Meds Allergies Allergy/AdvReac Type Severity Reaction Status Date / Time phentermine Allergy Intermediate Palpitation Verified 09/10/25 11:18 s Home Medications ?Medication ?Instructions ?Recorded ?Confirmed ?Last Taken ?Type albuterol sulfate 90 mcg/actuation 2 puff inhalation Q 6H PRN 08/22/20 09/16/25 Unknown History aerosol inhaler Shortness Of Breath Or Wheez ing calcium citrate 500 mg PO BID 08/17/2109/1611/08/23 History ascorbic acid (vitamin C) 500 mg 500 mg PO BID 4 09/16/25 Unknown History tablet (Vitamin C) cholecalciferol (vitamin D3) 1,250 1,250 mcg PO QWEEK 04/24/24 09/16/25 Unknown History mcg (50,000 unit) capsule polyethylene glycol 3350 17 17 g PO DAILY 04/26/25 Unknown History gram/dose oral powder Exam Height,Weight and Vital Signs: Height 5 ft Weight 68.492 kg Pertinent Lab Results Pertinent Lab Results: Laboratory Tests 09/10/25 12:00 WBC 5.9 Hgb 11.3 L Hct 35.1 L Plt Count 280 Sodium 140 Potassium 3.7 Chloride 109 H Carbon Dioxide 24 BUN 19 H Creatinine 0.62 Narrative Narrative: ECHO 04/2025 Conclusions: - The left ventricular systolic function is normal. The calculated ejection fraction is 58% by biplane method. - No obvious valvular pathology seen on this study. - There is mild dilatation of the ascending aorta measuring 4.20 cm. - Small plaque is seen in the sino tubular ridge. EKG 03/2025 EKG Details: EKG shows normal sinus rhythm with isolated PVC with moderate voltage criteria for LVH with nonspecific T wave changes Assessment and Plan Assessment Anesthesia Assessment: Chart Reviewed Final Anesthetic Review Family History of Problems with Anesthesia: No History of Problems with Anesthesia: No Documented by User: Hill Bravo MD 09/21/25 08:11 [facility] Past Medical History Medical History Enlarged thoracic aorta Intussusception Hepatomegaly Microscopic hematuria Murmur Frequent UTI Iron deficiency anemia Dysuria Labile blood glucose Anemia Dyslipidemia Pernicious anemia Cervicalgia of yyhsvkni-pbvxcyi-ngajt region Vitamin D deficiency Osteoporosis 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 Asthma Paget's disease Fibromyalgia Nontoxic multinodular goiter Osteoarthritis HTN (hypertension) Functional capacity: independent ambulation Family History Family History Mother Diabetes HTN (hypertension) Father Pancreatic cancer Diabetes HTN (hypertension) Maternal Grandmother Myocardial infarction Cancer Brother Pancreatic cancer Sister Uterine cancer Surgical History Surgical History Hx of hernia repair History of esophagogastroduodenoscopy (EGD) H/O colonoscopy History of excision of mass (08/21/23) History of removal of laparoscopic gastric banding device History of cystoscopy History of lobectomy of thyroid Mass of right parotid gland H/O laparoscopic adjustable gastric banding Hx of lithotripsy History of dilation and curettage History of delivery Hx of tonsillectomy Hx of gastric bypass Social History Social History Household Members: Family Housing: House Are you a primary sub acute care nurse to a significant other at home: No Do you presently have visiting nurse or other home services: No Alcohol intake: never Patient Tobacco Use Status: Former Tobacco user Tobacco use type: Cigarette e-Cigarette/Vaping Use: Never Used Second Hand Smoke Exposure: No Have you been hit, kicked, punched, or otherwise hurt by someone within the past year? If so, by whom?: No Are you DNR?: No Advance Directives: No Advance Directives Information Provided: No service: No Current occupational status: unemployed and disabled Sexual orientation: Straight/Heterosexual Gender identity: Female Cognitive needs: No Hearing needs: No Vision needs: Yes (glasses) Meds Allergies Allergy/AdvReac Type Severity Reaction Status Date / Time phentermine Allergy Intermediate Palpitation Verified 09/10/25 11:18 s Home Medications ?Medication ?Instructions ?Recorded ?Confirmed ?Last Taken ?Type albuterol sulfate 90 mcg/actuation 2 puff inhalation Q 6H PRN 08/22/20 09/16/25 Unknown History aerosol inhaler Shortness Of Breath Or Wheez ing calcium citrate 500 mg PO BID 08/17/2109/1611/08/23 History ascorbic acid (vitamin C) 500 mg 500 mg PO BID 04/24/ 4 09/16/25 Unknown History tablet (Vitamin C) cholecalciferol (vitamin D3) 1,250 1,250 mcg PO QWEEK 04/24/24 09/16/25 Unknown History mcg (50,000 unit) capsule polyethylene glycol 3350 17 17 g PO DAILY 04/26/25 Unknown History gram/dose oral powder Exam Exam Date and Time: 09/21/2025 Airway Mallampati Class: III TM Dist: <=3cm Neck ROM: Limited Loose/Missing/Broken Teeth: No Heart: rrr Lungs: cta Other: normal Assessment and Plan Final Anesthetic Review NPO: Yes ASA Class: II Final Preanesthetic Review: No Changes in Pt Med Stat, Meds/Allgs Chart Reviewed, Consent Obtained/Reviewed and Anes Risks/Benef Reviewed Patient Risk: Low Procedure Risk: Low Anesthetic Plan Anesthetic Plan: GA
[2025-09-21 07:07] VITALS: BP 112/61; PULSE 64; RESP 18; TEMP 36.9; O2SAT 97; BMI 29.5
[2025-09-21] MEDS: Lactated Ringers 1,000 ML 100 ML IVCONT (07:12)
--- NOTE | 2025-09-21 07:23 | P.OP_ITS ---
Operative Note Operative Note Date of Service: 09/21/25 Narrative: PREOP DIAGNOSIS: Interstitial cystitis, pelvic pain POSTOP DIAGNOSIS: Interstitial cystitis, pelvic pain, urethral stenosis PROCEDURE: CYSTOSCOPY HYDRODISTENTION, Urethral dilation Anethesia: General Surgeon: Dr. Saige Henning Details of procedure: The patient was brought into the operating room placed on the OR table in supine position. 2 g of Ancef IV. General anesthesia was administered. The patient was repositioned into lithotomy position, prepped and draped in the usual sterile fashion. Time-out was done per protocol. On attempts to place the 22 fr cystoscope transurethrally there was resistance at the uretheral meatus. The female sounds were used to dilate the urethral meatus starting with the 16 fr and sequentially dilated up to a 24 fr. The 22 fr cystoscope was than passed transurethrally into the bladder. Urine was drained from the bladder measuring 90 mL.The right and left ureteral orifices were visualized. The entire bladder was visualized. There were no suspicious bladder lesions seen. There were moderate trabeculations noted more pronounced on the left lateral wall. The bladder was filled with sterile water at 80 cm of water pressure under gravity. The bladder was distended for 2 minutes. Bladder capacity measured 750 mL. Revisualization of the bladder, noted no significant changes. The bladder was refilled with sterile water again at 80 cm of water pressure under gravity. The bladder was distended for 3 minutes. The fluid was drained from the bladder and measured 950 mL. The cystoscope was removed. 2% lidocaine urojet was passed transurethrally, Solution of (1% lidocaine plain, 15 mL, 0.5 % Marcaine 15 mL mixed with 30, 000 units of heparin concentration 5000 units per mL total of 6 mL hepaine) insti lled transurethrally into the bladder. Belladonna per rectum. The patient was brought out of anesthesia and taken to recovery in stable condition. Complications: None EBL: minimal (<5 mL)
--- NOTE | 2025-09-21 07:23 | MHC.SHP ---
Pre-Procedural Eval Section A - 24 Hr Update-Section A only Date of Service: 09/21/25 The patient is an INPATIENT: No The patient has been examined within 24 hours of the surgical procedure. The History & Physical has been completed within 30 days and I have reviewed it.: Yes Section B - Complete if H&P > 30 days Chief Complaint: Interstitial cystitis (chronic) without hematuria Allergies: Allergies Allergy/AdvReac Type Severity Reaction Status Date / Time phentermine Allergy Intermediate Palpitation Verified 09/10/25 11:18 s Plan Diagnosis/Plan: Unchanged I have reviewed the history and physical and performed a pertinent physical examination on my patient. No changes have occurred unless specified. Cystoscopy. Hydrodistension. Discussed risks to include but not limited to, blood in the urine, burning with urination, urgency. Time Spent With Patient Time: Total time managing care of this patient today ____ minutes.
[2025-09-21 08:33] VITALS: BP 140/70; PULSE 65; RESP 16; TEMP 36.1; O2SAT 98
[2025-09-21 08:38] VITALS: BP 100/49; PULSE 96; RESP 17; O2SAT 97
[2025-09-21 08:43] VITALS: BP 110/59; PULSE 102; RESP 18; O2SAT 96
[2025-09-21 08:48] VITALS: BP 110/58; PULSE 100; RESP 19; O2SAT 95
[2025-09-21 09:08] VITALS: BP 103/45; PULSE 88; RESP 19; TEMP 36.2; O2SAT 97
== END 2025-09-21 09:54 | disposition home or self-care (01) ==
PROVIDERS: PCP Internal Medicine; Visit Provider Urology
PROC: 0T7B7ZZ Dilation of Bladder, Via Natural or Artificial Opening (ICD-10-PCS; CPT 52260; principal; 2025-09-21 07:30)
DX: N30.10 Interstitial cystitis (chronic) without hematuria (principal); R10.20 Pelvic and perineal pain unspecified side; N35.92 Unspecified urethral stricture, female; N32.89 Other specified disorders of bladder; N39.41 Urge incontinence; Z87.440 Personal history of urinary (tract) infections; Z87.442 Personal history of urinary calculi; D50.9 Iron deficiency anemia, unspecified; D51.0 Vitamin B12 deficiency anemia due to intrinsic factor deficiency; I10 Essential (primary) hypertension; E78.5 Hyperlipidemia, unspecified; J45.909 Unspecified asthma, uncomplicated; M79.7 Fibromyalgia; M88.9 Osteitis deformans of unspecified bone; M81.0 Age-related osteoporosis without current pathological fracture; Z79.899 Other long term (current) drug therapy; Z98.84 Bariatric surgery status; Z98.890 Other specified postprocedural states; Z87.891 Personal history of nicotine dependence; Z56.0 Unemployment, unspecified
CPT/HCPCS: 52260; 87086; J0690; J1644; J2003; J2371; J2704; J2795; J3010

== ENCOUNTER → 2025-09-21 07:06 | Outpatient (BNV) | payer OTHER, SELFPAY | PROVIDERS: PCP Internal Medicine; Visit Provider Urology | DX: N30.10 Interstitial cystitis (chronic) without hematuria (principal); R39.82 Chronic bladder pain | CPT/HCPCS: 52260 ==

== ENCOUNTER 2025-10-07 11:22 | Outpatient (AMB) | payer OTHER, SELFPAY ==
--- NOTE | 2025-10-07 11:25 | HO.NEPHOV_ITS ---
Vital Signs 10/07/25 11:26 Height 5 ft 1 in Weight 150 lb BMI 28.3 BP 120/70 Blood Pressure Location Lt brachial Position Sitting Pulse 59 Pulse Source Pulse Oximeter Pulse Oximetry (%) 99 Oxygen Delivery Method Room Air Intake Visit Reasons: 4 wks f/u w/ labs Videotape Recording Engineer Required: Yes Videotape Recording Engineer Language: Electronics Processing Supervisor Services: Videotape Recording Engineer Present Videotape Recording Engineer Name: [id number] Information Interpreted: clinical only Accompanied by: Self / Same As Patient Allergies phentermine Allergy (Intermediate, Verified 10/07/25 11:26) Palpitations Medication List - Last Reconciled 10/07/25 by Barry Vasquez MD acetaminophen 1,000 mg (2 x 500 mg) PO Q8H PRN albuterol sulfate 2.5 mg (3 mL) inhalation RQ4H WHILE AWAKE albuterol sulfate 90 mcg/actuation 2 puffs inhalation Q6H PRN ascorbic acid (vitamin C) (Vitamin C) 500 mg PO BID calcium citrate 500 mg PO BID cholecalciferol (vitamin D3) 1,250 mcg PO QWEEK esomeprazole magnesium 40 mg PO DAILY folic acid 1 mg PO DAILY 90 days gabapentin 300 mg PO DAILY hyoscyamine sulfate 0.125 mg PO BID-QID PRN metoprolol succinate ER 25 mg PO DAILY 90 days nebulizers (AeroEclipse II Nebulizer) As directed ondansetron 4 mg PO Q8H PRN oxycodone 5 mg PO .[id number] PRN pantoprazole 20 mg PO BID 2 weeks phenazopyridine (Azo Urinary Pain Relief) 199 mg (2 x 99.5 mg) PO TID PRN phenazopyridine (Azo Urinary Pain Relief) 199 mg (2 x 99.5 mg) PO TID PRN polyethylene glycol 3350 17 grams PO DAILY pravastatin 20 mg PO DAILY 90 days sucralfate (Carafate) 1 g PO QIDACHS HPI Comments Details: - The patient is a 65-year-old female referred for hematuria. - Hematuria for one year, urine brown. She has not seen red urine. Urinalysis showed microscopic hematuria. History of interstitial cystitis She has been followed by Urology. In has undergone extensive workup including cystoscopy. Two weeks ago she underwent a CAT scan in [facility] and both kidneys appeared normal. She has a Urology evaluation in the next few weeks. - No pain, nausea, vomiting, or kidney stones. - Family history of kidney disease, father and sister had kidney disease but no history of end stage renal disease or gross hematuria. - she also has history of Hypertension and asthma, controlled. 10/07/25 The patient is a 65 year old individual presenting for a follow-up visit to review laboratory results. The patient has a history of microscopic hematuria, which is being managed by a urologist. The source of the blood in the urine has been identified as the bladder, not the kidneys. Recent laboratory tests showed normal kidney function and no proteinuria, though a very small amount of blood was present in the urine. The patient reports no trouble with urination. Liver function tests from August were also normal. 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 Asthma Paget's disease Fibromyalgia Nontoxic multinodular goiter Osteoarthritis HTN (hypertension) Surgical History Hx of hernia repair History of esophagogastroduodenoscopy (EGD) H/O colonoscopy History of excision of mass (08/21/23) History of removal of laparoscopic gastric banding device History of cystoscopy History of lobectomy of thyroid Mass of right parotid gland H/O laparoscopic adjustable gastric banding Hx of lithotripsy History of dilation and curettage History of delivery Hx of tonsillectomy Hx of gastric bypass Family History Mother Diabetes HTN (hypertension) Father Pancreatic cancer Diabetes HTN (hypertension) Maternal Grandmother Myocardial infarction Cancer Brother Pancreatic cancer Sister Uterine cancer Social History Household Members: Family Housing: House Are you a primary caregivers non medical to a significant other at home: No Do you presently have visiting nurse or other home services: No Alcohol intake: never Patient Tobacco Use Status: Former Tobacco user Tobacco use type: Cigarette e-Cigarette/Vaping Use: Never Used Second Hand Smoke Exposure: No service: No Current occupational status: unemployed and disabled Sexual orientation: Straight/Heterosexual Gender identity: Female Cognitive needs: No Hearing needs: No Vision needs: Yes (glasses) Female Reproductive History Menstrual Age of Menarche: 10 Physical Exam Comfortable Neck supple no JVD. Lungs entry equal no rales. Heart S1-S2 heard no gallop or rub. Abdomen soft nontender. Neuro alert awake oriented. No asterixis. Extremities no edema. Results Reviewed Nephrology Results: Hgb, (12.0-16.0) 11.4 g/dl L 09/29/25 WBC, (4.8-10.8) 5.4 X10*3/uL 09/29/25 Plt Count, (160-400) 281 X10*3/uL 09/29/25 Sodium, (135-145) 140 mmol/L 09/10/25 Potassium, (3.3-5.1) 3.7 mmol/L 09/10/25 Chloride, (96-108) 109 mmol/L H 09/10/25 Carbon Dioxide, (22-29) 24 mmol/L 09/10/25 BUN, (9-16) 19 mg/dL H 09/10/25 Creatinine, (0.5-1.4) 0.62 mg/dL 09/10/25 Calcium, (8.4-10.2) 9.0 mg/dL 09/10/25 PTH Intact, (8.7-77.1) 113.5 pg/mL H 09/10/25 Urine Protein, (Neg-Trace) Negative mg/dL 09/10/25 Urine Creatinine 65.32 mg/dL 09/10/25 Assessment & Plan Assessment & Plan (1) Microscopic hematuria: Code(s): R31.29 - Other microscopic hematuria Category: Medical Plan Most likely due to underlying interstitial cystitis. She has no significant proteinuria. In the past renal function was normal. Recent CT scan showed normal-appearing kidneys. baseline serological workup including ANCA, anti-GBM and serum complements. were all normal urine for protein creatinine ratio. ~ normal No need for further workup today I have reassured her and encouraged her to follow up with Urology as well. Orders: Orders Creatinine Urine Today I10 - Essential (primary) hypertension, R31.29 - Other microscopic hematuria, R31.9 - Hematuria, unspecified Total Protein Urine Random Today I10 - Essential (primary) hypertension, R31.29 - Other microscopic hematuria, R31.9 - Hematuria, unspecified UA and rflx microscopic Today I10 - Essential (primary) hypertension, R31.29 - Other microscopic hematuria, R31.9 - Hematuria, unspecified Basic Metabolic Panel 1 Year R31.9 - Hematuria, unspecified Coding Level of Care Code Est Pt Level 4 (43478) Diagnoses Microscopic hematuria R31.29
[2025-10-07 11:26] VITALS: BP 120/70; PULSE 59; O2SAT 99; BMI 28.3
--- OUTSIDE RECORDS SUMMARY | 2025-10-07 17:35 | XMS_ITS | Clinical Summary ---
Author Organization [facility] Address [address] [place] [address] Phone Care Team Providers Care Telecommunicator Supervisor Name Role Phone Mary Jo Conteh MD Primary Care Provider [phone] Allergies No known active allergies Medications albuterol [...] 1 (one) time each day. Active ascorbic dlac-xyriejls-zb n 1,000 mg powder effervescent in packet [...] not crush or chew. 30 each 5 025 Active Problems Problem Noted Date [...] EDT Emergency [facility] Emergency [address] [place] [id number] Joseph Arango MD Peptic ulcer (Primary Dx); [...] AM EDT Office Visit Gastroenterology - [address] [phone] Taniya Galdamez NP [address] [address] Health Maintenance Due Date Last Done Comments [...] this topic Medical Devices Implanted Type Area Company Controller Device Identifier Shelf Expiration Date Model / Serial / Lot Mesh Ventralex St 1.7in Sm [employer] W/Strap - Sn/A - [id number] Implanted:Qty: 1 on 12/09/2024 by Griffin Loya MD at [facility] Surgical Mesh Sling Implants N/A: Umbilical CR BARD - DAVOL DIV [id number] / N/A / N/A Procedures Procedure Name [...] AND DIFFERENTIAL STAT 09/01/2025 2:23 PM EDT from Last 3 Months Results [...] by: Jacek Garcia MD on 09/01/2025 19:18:45 us Severo RICKET[facility] IMG CT PROCEDURES Final Res ult * (ABNORMAL) Urinalysis with reflex microscopic and culture (09/01/2025 2:31 PM EDT) Specific [place] Urine 1.015 1.003 - 1.030 LAB URINALYSIS - AUTOMATED METHOD 09/01/2025 3:02 PM [facility] pH, Urine 6.0 5.0 - 8.0 pH LAB URINALYSIS - AUTOMATED METHOD 09/01/2025 3:02 PM [facility] Leukocytes, Urine Negative Negative LAB URINALYSIS - AUTOMATED METHOD 09/01/2025 3:02 PM [facility] Nitrite, Urine Negative Negative LAB URINALYSIS - AUTOMATED METHOD 09/01/2025 3:02 PM [facility] Protein, Urine Negative <=Trace mg/dL LAB URINALYSIS - AUTOMATED METHOD 09/01/2025 3:02 PM [facility] Glucose, Urine Negative Negative mg/dL LAB URINALYSIS - AUTOMATED METHOD 09/01/2025 3:02 PM [facility] Ketones, Urine Negative Negative mg/dL LAB URINALYSIS - AUTOMATED METHOD 09/01/2025 3:02 PM [facility] Urobilinogen, Urine 0.2 0.2 - 1.0 mg/dL LAB URINALYSIS - AUTOMATED METHOD 09/01/2025 3:02 PM [facility] Bilirubin, Urine Negative Negative LAB URINALYSIS - AUTOMATED METHOD 09/01/2025 3:02 PM [facility] Blood, Urine Trace(A) Negative LAB URINALYSIS - AUTOMATED METHOD 09/01/2025 3:02 PM [facility] RBC, Urine 5.2(H) 0 - 4 /HPF LAB URINALYSIS - AUTOMATED METHOD 09/01/2025 3:02 PM [facility] WBC, Urine 0.4 0 - 4 /HPF LAB URINALYSIS - AUTOMATED METHOD 09/01/2025 3:02 PM EDT [facility] Squamous Epithelial, Urine 15 0 - 60 /LPF LAB URINALYSIS - AUTOMATED METHOD 09/01/2025 3:02 PM EDT [facility] Bacteria, Urine Negative Negative /HPF LAB URINALYSIS - AUTOMATED METHOD 09/01/2025 3:02 PM EDT [facility] Hyaline Casts, Urine 0.0 0 - 3 /LPF LAB URINALYSIS - AUTOMATED METHOD 09/01/2025 3:02 PM EDT [facility] Urine Urine specimen obtained by clean catch procedure / Unknown Non-blood Collection / Unknown 09/01/2025 2:31 PM EDT 09/01/2025 2:41 PM EDT us Joseph Arango MD LAB URINE ORDERABLES Final Resul t Performing Organization Address City/[facility]/ZIP Co de Phone Number [facility] [address] [place] [address], [place] [phone] * [place] urine culture tube (09/01/2025 2:31 PM EDT) Pathologist [facility] Extra Tube Hold for add-ons. 09/01/2025 4:01 PM EDT [facility] Comment:Auto resulted. Urine Urine specimen obtained by clean catch procedure / Unknown Non-blood Collection / Unknown 09/01/2025 2:31 PM EDT 09/01/2025 2:41 PM EDT us Joseph Arango MD LAB URINE ORDERABLES Final Resul t Performing Organization Address [facility]/ZIP Co de Phone Number [facility] [address] [place] [address], [place] [phone] * CBC auto differential (09/01/2025 2:23 PM [...] % LAB H[facility]25 2:[facility] MCV 93.0 79.0 - 98.0 FL LAB HEMETOLOGY METHOD 09/[facility]/2025 2:[facility] MCH 30.2 27.0 - 32.0 pcg LAB HEMETOLOGY METHOD 09/01/2025 2:56 PM EDT [facility] MCHC 32.4 32.0 - 37.0 g/dL LAB HEMETOLOGY METHOD 09/01/2025 2:56 PM T [facility] RDW 13.8 11.0 - 15.0 % LAB HEMETOLOGY METHOD 09/01/2025 2:56 PM [facility] Platelets 309 130 - 400 K/mcL LAB HEMETOLOGY METHOD 09/01/2025 2:56 [facility] MPV 10.1 7.0 - 11.0 FL LAB HEMETOLOGY METHOD 09/01/2025 2:56 [facility] NRBC 0.0 <1.0 % LAB HEMETOLOGY METHOD 09/01/2025 2:56 PM [facility] NRBC Absolute 0.00 <0.10 K/mcL LAB HEMETOLOGY METHOD 09/01/2025 2:56 PM EDT [facility] Neutrophils Relative 70.2 % LAB HEMETOLOGY METHOD 09/01/2025 2:56 PM EDT [facility] Lymphocytes Relative 21.0 % LAB HEMETOLOGY METHOD 09/01/2025 2:56 PM [facility] Monocytes Relative 6.5 % LAB HEMETOLOGY METHOD 09/01/2025 2:56 PM [facility] Eosinophils Relative 1.5 % LAB HEMETOLOGY METHOD 09/01/2025 2:56 PM [facility] Basophils Relative 0.7 % LAB HEMETOLOGY METHOD 09/01/2025 2:56 PM [facility] Immature Granulocytes Relative 0.1 % LAB HEMETOLOGY METHOD 09/01/2025 2:56 PM [facility] Neutrophils Absolute 4.78 1.50 - 7.00 K/mcL LAB HEMETOLOGY METHOD 09/01/2025 2:56 PM [facility] Lymphocytes Absolute 1.43 1.00 - 5.00 K/mcL LAB HEMETOLOGY METHOD 09/01/2025 2:56 PM [facility] Monocytes Absolute 0.44 0.20 - 1.00 K/mcL LAB HEMETOLOGY METHOD 09/01/2025 2:56 PM [facility] Eosinophils Absolute 0.10 0.00 - 0.50 K/mcL LAB HEMETOLOGY METHOD 09/01/2025 2:56 PM [facility] Basophils Absolute 0.05 0.00 - 0.20 K/mcL LAB HEMETOLOGY METHOD 09/01/2025 2:56 PM [facility] Immature Granulocytes Absolute 0.01 0.00 - 0.03 K/mcL LAB HEMETOLOGY METHOD 09/01/2025 2:56 PM [facility] Blood Venous blood specimen / Unknown Venipuncture / Unknown 09/01/2025 2:23 PM EDT 09/01/2025 2:42 PM EDT us Joseph Arango MD LAB BLOOD ORDERABLES Final Resul t Performing Organization Address [facility]/ZIP Co de Phone Number [facility] [address] [place] [address], [place] [phone] * Lipase (09/01/2025 2:23 PM EDT) Pathologist [facility] Lipase 40 13 - 75 unit/L LAB CHEMISTRY METHOD 09/01/2025 3:28 PM EDT [facility] Blood Venous blood specimen / Unknown Venipuncture / Unknown 09/01/2025 2:23 PM EDT 09/01/2025 2:42 PM EDT us Joseph Arango MD LAB BLOOD ORDERABLES Final Resul t Performing Organization Address [facility] de Phone Number [facility] [address] [place] [address], [place] [phone] * (ABNORMAL) Comprehensive metabolic panel (09/01/2025 2:23 PM EDT) [facility] Sodium 139 133 - 145 mmol/L LAB CHEMISTRY METHOD 09/01/2025 3:28 PM EDT [facility] Potassium 4.5 3.5 - 5.5 mmol/L LAB CHEMISTRY METHOD 09/01/2025 3:28 PM EDT [facility] Chloride 107 96 - 110 mmol/L LAB CHEMISTRY METHOD 09/01/2025 3:28 PM EDT [facility] CO2 28 21 - 32 mmol/L LAB CHEMISTRY METHOD 09/01/2025 3:28 PM EDT [facility] Anion Gap 4 3 - 11 LAB CHEMISTRY METHOD 09/01/2025 3:28 PM EDT [facility] Glucose 103(H) 70 - 100 mg/dL LAB CHEMISTRY METHOD 09/01/2025 3:28 PM EDT [facility] BUN 21 5 - 25 mg/dL LAB CHEMISTRY METHOD 09/01/2025 3:28 PM [facility] Creatinine 0.86 0.50 - 1.10 mg/dL LAB CHEMISTRY METHOD 09/01/2025 3:28 PM [facility] eGFR 75 >=60 mL/min/1. 73m2 LAB CHEMISTRY METHOD 09/01/2025 3:28 PM [facility] Comment:Calculation based on the Chronic Kidney Disease Epidemiology Collaboration (CKD-EPI) equation refit without adjustment for race. BUN/Creatinine Ratio 24.4 LAB CHEMISTRY METHOD 09/01/2025 3:28 PM [facility] Calcium 9.8 8.5 - 10.5 mg/dL LAB CHEMISTRY METHOD 09/01/2025 3:28 PM [facility] AST (SGOT) 22 10 - 42 unit/L LAB CHEMISTRY METHOD 09/01/2025 3:28 PM [facility] ALT (SGPT) 29 10 - 60 unit/L LAB CHEMISTRY METHOD 09/01/2025 3:28 PM [facility] Alkaline Phosphatase 89 42 - 121 unit/L LAB CHEMISTRY METHOD 09/01/2025 3:28 PM [facility] Total Protein 7.0 6.0 - 8.0 g/dL LAB CHEMISTRY METHOD 09/01/2025 3:28 PM [facility] Albumin 3.5 3.2 - 5.0 g/dL LAB CHEMISTRY METHOD 09/01/2025 3:28 PM [facility] Total Bilirubin 0.3 0.0 - 1.4 mg/dL LAB CHEMISTRY METHOD 09/01/2025 3:28 PM [facility] Blood Venous blood specimen / Unknown Venipuncture / Unknown 09/01/2025 2:23 PM EDT 09/01/2025 2:42 PM EDT us Joseph Arango MD LAB BLOOD ORDERABLES Final Resul t [facility] [address] [place] [address], from Last 3 Months Insurance [facility] MEDICARE Member Subscriber Plan / Payer (Ef fective 2023-Present) Name:Maura Travis Relation to Subscriber:Self Name:Angy Smith Maura Watters Payer ID:[id number] Group ID:[id number] Type:Not on file Address: [place] [address] [address] [id number] Advance Directives Documents on File Type Date Recorded 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 Care Teams Telecommunicator Supervisor Relationship Specialty Start Date End Date Mary Jo Conteh MD [address] [place] [address] , [address] Physician Associ [facility]B/A: [facility] [place] MD PCP - General Internal Medicine 05/28/18
--- OUTSIDE RECORDS SUMMARY | 2025-10-07 17:35 | XMS_ITS | Clinical Summary ---
Author Organization [facility] Address [address] [place] [address] Phone Care Team Providers Care Gambling Supervisor Name Role Phone Mary Jo Ascencio MD [...] Medical Devices Not on file Insurance [facility] [address] [place] [address] ACO Member Subscriber Plan / Payer (Ef fective 2019-Present) Name:Maura Travis Relation to Subscriber:Self Name:Maura Travis Payer ID:[id number] Group ID:[id number] Type:Medicaid Address: [address] ACO [facility] A[employer] Member Subscriber Plan / Payer (Ef fective 2019-Present) Name:Maura Travis Relation to Subscriber:Self Name:Maura Travis Payer ID:[id number] Group ID:[id number] Type:Medicaid Address: [address] ACO Member Subscriber Plan / Payer (Ef fective 2019-Present) Name:Maura Travis Relation to Subscriber:Self Name:Maura Travis Payer ID:[id number] Group ID:[id number] Type:Medicaid Address: [address] [place] [address] ACO Member Subscriber Plan / Payer (Ef fective 2019-Present) Name:Maura Travis Relation to Subscriber:Self Name:Maura Travis Payer ID:[id number] Group ID:[id number] Type:Medicaid Address: [address] [place] [address] ACO Member Subscriber Plan / Payer (Ef fective 2019-Present) Name:Maura Travis Relation to Subscriber:Self Name:Maura Travis Payer ID:[id number] Group ID:[id number] Type:Medicaid Address: [address] ACO [facility] A[employer] Member Subscriber Plan / Payer (Ef fective 2019-Present) Name:Maura Travis Relation to Subscriber:Self Name:Maura Travis Payer ID:[id number] Group ID:[id number] Type:Medicaid Address: [address] [place] [address] ACO Member Subscriber Plan / Payer (Ef fective 2019-Present) Name:Maura Travis Relation to Subscriber:Self Name:Maura Travis Payer ID:[id number] Group ID:[id number] Type:Medicaid Address: [address] [place] [address] ACO Member Subscriber Plan / Payer (Ef fective 2019-Present) Name:Maura Travis Relation to Subscriber:Self Name:Maura Travis Payer ID:[id number] Group ID:[id number] Type:Medicaid Address: [address] ACO Care Teams Gambling Supervisor Relationship Specialty Start Date End Date Mary Jo Ascencio MD [address] [place] [address] PCP - General 06/04/19 Additional Source Comments The information contained in this document represents components of the legal health record. It is not the complete legal health record.[facility]
== END 2025-10-07 11:36 | disposition home or self-care (01) ==
LOC: HO.HKA 11:23
PROVIDERS: PCP Internal Medicine; Visit Provider Internal Medicine Hypertension Specialist
DX: R31.29 Other microscopic hematuria (principal)
CPT/HCPCS: 99214

== ENCOUNTER → 2025-10-07 11:22 | Outpatient (BNVA) | payer OTHER, SELFPAY | PROVIDERS: PCP Internal Medicine; Visit Provider Internal Medicine Hypertension Specialist | DX: I10 Essential (primary) hypertension (principal); R31.29 Other microscopic hematuria | CPT/HCPCS: 99212 ==

== ENCOUNTER → 2025-10-20 10:00 | Outpatient (BNV) | payer OTHER, SELFPAY | PROVIDERS: Absent Provider Internal Medicine Hypertension Specialist; PCP Internal Medicine; Visit Provider Internal Medicine | DX: Z12.31 Encounter for screening mammogram for malignant neoplasm of breast (principal) | CPT/HCPCS: 77063; 77067 ==

== ENCOUNTER 2025-10-20 10:11 | Outpatient (REF) | payer OTHER, SELFPAY ==
--- NOTE | ~2025-10-20 | MM_ITS ---
EXAMINATION: MM SCREENING DIGITAL BREAST TOMOSYNTHESIS, BILATERAL CLINICAL INFORMATION: Screening. Asymptomatic. COMPARISON: Mammography: Comparison is made with available priors TECHNIQUE: Digital breast mammography with tomosynthesis is performed in both the craniocaudal and mediolateral oblique views along with computer-aided detection (CAD). FINDINGS: There are scattered areas of fibroglandular density. Right: Right post surgical changes are stable. Asymmetry retroareolar region middle to posterior depth on CC view nipple profile. No suspicious calcifications or other abnormal findings. Left: There are no significant masses, abnormal calcifications, or other abnormalities. MM/MM tomosynthesis screening BI IMPRESSION: Additional imaging is recommended ASSESSMENT: BI-RADS Category 0: Incomplete - Need additional Imaging Evaluation RECOMMENDATION: 1. Additional views of the right breast. 2. Targeted ultrasound if warranted after review of the additional views. 3. Radiology department staff will contact the patient for additional imaging. Additional Imaging required Electronically signed by: Bambi Hinojosa DO 10/22/2025 04:02 PM [facility]
--- OUTSIDE RECORDS SUMMARY | 2025-10-20 11:36 | XMS_ITS | Data Portability ---
Author Organization [place] - [facility], Allergy Address [address] [address] Assessment Encounter Date Assessment Date Assessment LastModified [...] recorded. Imaging MRI, neck, w/wo contrast - hebrew speaker, hx of right parotidecto my for [...] ast No observ ation record ed. [email or web address] [address], [address], 10/09/2024 09:09:01 Result Notes None recorded. 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; Note: Date Diagnose d: 8 1:28 PM (D44.0) Not Available [facility] 4 02:29:24 Malignan t neoplasm of parotid gland 275978615 Completed 201806/19/2024 Malignan t neoplasm of parotid gland; Location : right No te: Date Diagnose d: 9 11:40 AM (C07) Not Available [facility] 4 02:29:33 History of malignan t neoplasm of parotid gland 11432617902 9102 Active 2023 CHRIS WOO MD [address] [facility],[place] [address], [facility] [place] [place], [address] , [facility] - [facility] 4 13:58:22 Problem Notes None recorded. [...] Updated DateTime 07/08/2024 152.4 cm 29.3 kg/m2 26070.86 g Marc Odonnell [place] - [facility] 07/08/2024 13:41:16 Social History None recorded. Functional Status None recorded. Mental Status None recorded. Family History Nothing Reported. Medical History No medical history recorded. Gynecological HistoryNo gynecological history recorded. Obstetrics History GPAL:G 0 P 0 0 0 0 Past Encounters Encounter ID Performer Location Encounter Start Date Encounter Closed Date Diagnosis/Indication Diagnosis SNOMED-CT Code Diagnosis ICD10 Code Diagnosis IMO Codes Diagnosis Note [id number] CHRIS WOO MD [facility] [address] [address] 07/08/2024 13:31:55 07/08/2024 14:01:53 History of malignant neoplasm of parotid gland 3991719317 50385 Z85.818 Health Concerns Section Related Observation LastModified by Organization Detai ls LastModified Time None Recorded Concern Status LastModified by Organization Details LastModified Time None Recorded Advance Directives Directive None Recorded Payers Insurance Date Sequence Insurance Name Policy Number Policy Madrigal Covered Member ID Madrigal Member ID Guarantor Name 08/03/2024 1 [facility] [employer] SERVICES - [facility] ([facility] HMO) Maura Travis [id number] Maura Travis 07/15/2024 1 [facility] - DOS ON OR AFTER 2023 - MEDICARE ADVANTAGE [place] (MEDICARE REPLACEMENT/AD VANTAGE - O) Maura Travis [id number] Maura Travis 08/03/2024 1 [facility] - DOS ON OR AFTER 2023 - [facility] (MEDICARE REPLACEMENT/AD VANTAGE - HMO) Maura Travis [id number] Maura Travis Notes Date Note Type Note Provider Name and Address Organization Details Recorded Time 07/08/2024 text/html hebrew - IPADhx of right deep lobe parotid [...] for a follicular nodule CHRIS WOO MD [address] [place] [address], [place], [address], [place] - [facility] 07/08/2024 14:01:47 OBGyn Episode No OBEpisode recorded.
--- OUTSIDE RECORDS SUMMARY | 2025-10-20 11:36 | XMS_ITS | Clinical Summary ---
Author Organization 175 [facility] Address [address] [place] [address] Phone Care Team Providers Care Project Development Manager Name Role Phone Mary Jo Conteh MD Primary Care Provider [phone] Allergies No known active allergies Medications albuterol [...] 1 (one) time each day. Active ascorbic krrs-yqnqcpcv-oh n 1,000 mg powder effervescent in packet [...] EDT - 09/01/2025 9:12 PM EDT Emergency [facility] Emergency [address] [place] [phone] Joseph Arango MD Peptic ulcer (Primary Dx); [...] AM EDT Office Visit Gastroenterology - [address] [address] Taniya Galdamez NP [address] [address] Health Maintenance Due Date Last Done Comments [...] this topic Medical Devices Implanted Type Area Horticulture Professor Device Identifier Shelf Expiration Date Model / Serial / Lot Mesh Ventralex St 1.7in Sm [employer] W/Strap - Sn/A - [id number] Implanted:Qty: 1 on 12/09/2024 by Griffin Loya MD at [facility] Surgical Mesh Sling Implants N/A: Umbilical CR BARD - DAVOL DIV [id number] / N/A / N/A Procedures Procedure Name [...] and culture (09/01/2025 2:31 PM EDT) Specific [place] Urine 1.015 1.003 - 1.030 LAB URINALYSIS - AUTOMATED METHOD 09/01/2025 3:02 PM [facility] pH, Urine 6.0 5.0 - 8.0 pH LAB URINALYSIS - AUTOMATED METHOD 09/01/2025 3:02 PM [facility] Leukocytes, Urine Negative Negative LAB URINALYSIS - AUTOMATED METHOD 09/01/2025 3:02 PM [facility] Nitrite, Urine Negative Negative LAB URINALYSIS - AUTOMATED METHOD 09/01/2025 3:02 PM [facility] Protein, Urine Negative <=Trace mg/dL LAB URINALYSIS - AUTOMATED METHOD 09/01/2025 3:02 PM [facility] Glucose, Urine Negative Negative mg/dL LAB URINALYSIS - AUTOMATED METHOD 09/01/2025 3:02 PM [facility] Ketones, Urine Negative Negative mg/dL LAB URINALYSIS - AUTOMATED METHOD 09/01/2025 3:02 PM [facility] Urobilinogen, Urine 0.2 0.2 - 1.0 mg/dL LAB URINALYSIS - AUTOMATED METHOD 09/01/2025 3:02 PM [facility] Bilirubin, Urine Negative Negative LAB URINALYSIS - AUTOMATED METHOD 09/01/2025 3:02 PM [facility] Blood, Urine Trace(A) Negative LAB URINALYSIS - AUTOMATED METHOD 09/01/2025 3:02 PM [facility] RBC, Urine 5.2(H) 0 - 4 /HPF LAB URINALYSIS - AUTOMATED METHOD 09/01/2025 3:02 PM [facility] WBC, Urine 0.4 0 - [...] ORDERABLES Final Resul t Performing Organization Address City/[facility]/ZIP Co de Phone Number [facility] [address] [place] [address], [place] [phone] * [place] urine culture tube (09/01/2025 2:31 PM EDT) Pathologist [facility] Extra Tube Hold for add-ons. 09/01/2025 4:01 PM EDT [facility] Comment:Auto resulted. Urine Urine specimen obtained by clean catch procedure / Unknown Non-blood Collection / Unknown 09/01/2025 2:31 PM EDT 09/01/2025 2:41 PM EDT us Joseph Arango MD LAB URINE ORDERABLES Final Resul t Performing Organization Address [facility]/ZIP Co de Phone Number [facility] [address] [place] [address], [place] [phone] * CBC auto differential (09/01/2025 2:23 PM [...] % LAB HEMETOLOGY METHOD 09/01/2025 2:56 PM [facility] MCV 93.0 79.0 - 98.0 FL LAB HEMETOLOGY METHOD 09/01/2025 2:56 PM [facility] MCH 30.2 27.0 - 32.0 pcg LAB HEMETOLOGY METHOD 09/01/2025 2:56 PM EDT [facility] MCHC 32.4 32.0 - 37.0 g/dL LAB HEMETOLOGY METHOD 09/01/2025 2:56 PM T [facility] RDW 13.8 11.0 - 15.0 % LAB HEMETOLOGY METHOD 09/01/2025 2:56 PM [facility] Platelets 309 130 - 400 K/mcL LAB HEMETOLOGY METHOD 09/01/2025 2:56 PM [facility] MPV 10.1 7.0 - 11.0 FL LAB HEMETOLOGY METHOD 09/01/2025 2:56 PM [facility] NRBC 0.0 <1.0 % LAB HEMETOLOGY METHOD 09/01/2025 2:56 PM [facility] NRBC Absolute 0.00 <0.10 K/mcL LAB HEMETOLOGY METHOD 09/01/2025 2:56 PM EDT [facility] Neutrophils Relative 70.2 % LAB HEMETOLOGY METHOD 09/01/2025 2:56 PM EDT [facility] Lymphocytes Relative 21.0 % LAB HEMETOLOGY METHOD 09/01/2025 2:56 PM [facility] Monocytes Relative 6.5 % LAB HEMETOLOGY METHOD 09/01/2025 2:56 PM [facility] Eosinophils Relative 1.5 % LAB HEMETOLOGY METHOD 09/01/2025 2:56 PM [facility] Basophils Relative 0.7 % LAB HEMETOLOGY METHOD 09/01/2025 2:56 PM [facility] Immature Granulocytes Relative 0.1 % LAB HEMETOLOGY METHOD 09/01/2025 2:56 PM [facility] Neutrophils Absolute 4.78 1.50 - 7.00 K/mcL LAB HEMETOLOGY METHOD 09/01/2025 2:56 PM [facility] Lymphocytes Absolute 1.43 1.00 - 5.00 K/mcL LAB HEMETOLOGY METHOD 09/01/2025 2:56 PM [facility] Monocytes Absolute 0.44 0.20 - 1.00 K/mcL LAB HEMETOLOGY METHOD 09/01/2025 2:56 PM [facility] Eosinophils Absolute 0.10 0.00 - 0.50 K/mcL LAB HEMETOLOGY METHOD 09/01/2025 2:56 PM [facility] Basophils Absolute 0.05 0.00 - 0.20 K/mcL LAB HEMETOLOGY METHOD 09/01/2025 2:56 PM [facility] Immature Granulocytes Absolute 0.01 0.00 - 0.03 K/mcL LAB HEMETOLOGY METHOD 09/01/2025 2:56 PM [facility] Blood Venous blood specimen / Unknown Venipuncture / Unknown 09/01/2025 2:23 PM EDT 09/01/2025 2:42 PM EDT us Joseph Arango MD LAB BLOOD ORDERABLES Final Resul t Performing Organization Address [facility]/ZIP Co de Phone Number [facility] [address] [place] [address], [place] [phone] * Lipase (09/01/2025 2:23 PM EDT) Pathologist [facility] Lipase 40 13 - 75 unit/L LAB CHEMISTRY METHOD 09/01/2025 3:28 PM EDT [facility] Blood Venous blood specimen / Unknown Venipuncture / Unknown 09/01/2025 2:23 PM EDT 09/01/2025 2:42 PM EDT us Joseph Arango MD LAB BLOOD ORDERABLES Final Resul t Performing Organization Address [facility] de Phone Number [facility] [address] [place] [address], [place] [phone] * (ABNORMAL) Comprehensive metabolic panel (09/01/2025 2:23 PM EDT) [facility] Sodium 139 133 - 145 mmol/L LAB CHEMISTRY METHOD 09/01/2025 3:28 PM EDT [facility] Potassium 4.5 3.5 - 5.5 mmol/L LAB CHEMISTRY METHOD 09/01/2025 3:28 PM EDT [facility] Chloride 107 96 - 110 mmol/L LAB CHEMISTRY METHOD 09/01/2025 3:28 PM EDT [facility] CO2 28 21 - 32 mmol/L LAB CHEMISTRY METHOD 09/01/2025 3:28 PM EDT [facility] Anion Gap 4 3 - 11 LAB CHEMISTRY METHOD 09/01/2025 3:28 PM EDT [facility] Glucose 103(H) 70 - 100 mg/dL LAB CHEMISTRY METHOD 09/01/2025 3:28 PM EDT [facility] BUN 21 5 - 25 mg/dL LAB CHEMISTRY METHOD 09/01/2025 3:28 PM [facility] Creatinine 0.86 0.50 - 1.10 mg/dL LAB CHEMISTRY METHOD 09/01/2025 3:28 PM [facility] eGFR 75 >=60 mL/min/1. 73m2 LAB CHEMISTRY METHOD 09/01/2025 3:28 PM [facility] Comment:Calculation based on the Chronic Kidney Disease Epidemiology Collaboration (CKD-EPI) equation refit without adjustment for race. BUN/Creatinine Ratio 24.4 LAB CHEMISTRY METHOD 09/01/2025 3:28 PM [facility] Calcium 9.8 8.5 - 10.5 mg/dL LAB CHEMISTRY METHOD 09/01/2025 3:28 PM [facility] AST (SGOT) 22 10 - 42 unit/L LAB CHEMISTRY METHOD 09/01/2025 3:28 PM [facility] ALT (SGPT) 29 10 - 60 unit/L LAB CHEMISTRY METHOD 09/01/2025 3:28 PM [facility] Alkaline Phosphatase 89 42 - 121 unit/L LAB CHEMISTRY METHOD 09/01/2025 3:28 PM [facility] Total Protein 7.0 6.0 - 8.0 g/dL LAB CHEMISTRY METHOD 09/01/2025 3:28 PM [facility] Albumin 3.5 3.2 - 5.0 g/dL LAB CHEMISTRY METHOD 09/01/2025 3:28 PM [facility] Total Bilirubin 0.3 0.0 - 1.4 mg/dL LAB CHEMISTRY METHOD 09/01/2025 3:28 PM [facility] Blood Venous blood specimen / Unknown Venipuncture / Unknown 09/01/2025 2:23 PM EDT 09/01/2025 2:42 PM EDT us Joseph Arango MD LAB BLOOD ORDERABLES Final Resul t [facility] [address] [place] [address], from Last 3 Months Insurance [facility] MEDIC[facility] Member Subscriber Plan / Payer (Ef fective 2023-Present) Name:Maura Travis Relation to Subscriber:Self Name:Angy Smith Maura Watters Payer ID:[id number] Group ID:[id number] Type:Not on file Address: [place] [address] [address] [address] Advance Directives Documents on File Type Date Recorded Patient Dynamics Ax Technical Architect Expl anation Health Care Decision (hx) 05/24/2015 [...] currently active code status orders. Care Teams Project Development Manager Relationship Specialty Start Date End Date Mary Jo Conteh MD [address] [place] [address] , [address] Physician Associ D[facility]B/A: [facility] [place] PCP - General Internal Medicine 05/28/18
--- OUTSIDE RECORDS SUMMARY | 2025-10-20 11:36 | XMS_ITS | Clinical Summary ---
Author Organization [facility] Address [address] [place] [address] Phone Care Team Providers Care Metal Tile Setter Name Role Phone Mary Jo Ascencio [...] file Medical Devices Not on file Insurance [facility] ACO [address] [place] [address] [address] ACO Member Subscriber Plan / Payer (Ef fective 2019-Present) Name:Maura Travis Relation to Subscriber:Self Name:Maura Travis Payer ID:[id number] Group ID:[id number] Type:Medicaid Address: [address] ACO [facility] ACO Member Subscriber Plan / Payer (Ef fective 2019-Present) Name:Maura Travis Relation to Subscriber:Self Name:Maura Travis Payer ID:[id number] Group ID:[id number] Type:Medicaid Address: [address] ACO Member Subscriber Plan / Payer (Ef fective 2019-Present) Name:Maura Travis Relation to Subscriber:Self Name:Maura Travis Payer ID:[id number] Group ID:[id number] Type:Medicaid Address: [address] [place] [address] ACO Member Subscriber Plan / Payer (Ef fective 2019-Present) Name:Maura Travis Relation to Subscriber:Self Name:Maura Travis Payer ID:[id number] Group ID:[id number] Type:Medicaid Address: [address] [place] [address] ACO Member Subscriber Plan / Payer (Ef fective 2019-Present) Name:Maura Travis Relation to Subscriber:Self Name:Maura Travis Payer ID:[id number] Group ID:[id number] Type:Medicaid Address: [address] ACO [facility] ACO Member Subscriber Plan / Payer (Ef fective 2019-Present) Name:Maura Travis Relation to Subscriber:Self Name:Maura Travis Payer ID:[id number] Group ID:[id number] Type:Medicaid Address: [address] [place] [address] ACO Member Subscriber Plan / Payer (Ef fective 2019-Present) Name:Maura Travis Relation to Subscriber:Self Name:Maura Travis Payer ID:[id number] Group ID:[id number] Type:Medicaid Address: [address] [place] [address] ACO Member Subscriber Plan / Payer (Ef fective 2019-Present) Name:Maura Travis Relation to Subscriber:Self Name:Maura Travis Payer ID:[id number] Group ID:[id number] Type:Medicaid Address: [address] ACO Care Teams Metal Tile Setter Relationship Specialty Start Date End Date Mary Jo Ascencio MD [address] [place] [address] PCP - General 06/04/19 Additional Source Comments The information contained in this document represents components of the legal health record. It is not the complete legal health record.[facility]
[2025-10-20 12:07] LABS: MANUAL DIFF FLAG NO
[2025-10-20 12:12] LABS: Hematocrit 36.4 % (37.0-47.0); Hemoglobin 11.8 g/dl (12.0-16.0); Imm Gran Abs Auto 0.04 X10*3/uL (0.00-0.03); Imm Gran Pct Auto 0.5 % (0.0-0.4); Lymphocytes Absolute Auto 1.6 X10*3/uL (1.2-4.9); Mean Corpuscular HGB Conc 32.4 g/dl (31.0-35.0); Mean Corpuscular Hemoglobin 30.2 pg (27.0-33.0); Mean Corpuscular Volume 93.1 fL (80.0-98.0); NRBC Abs Auto 0.000 X10*3/uL (0.0-0.012); NRBC Pct Auto 0.0 /100WBC (0.0-0.2); Platelet Count 294 X10*3/uL (160-400); Red Blood Count 3.91 X10*6/uL (4.20-5.50); White Blood Count 7.4 X10*3/uL (4.8-10.8)
[2025-10-20 12:25] LABS: Appearance Urine Cloudy; Glucose Urine UA Negative (Negative); PH 6.0 (5.0-9.0); Specific Gravity - Urine 1.010 (1.005-1.025); UMIC TRIGGER UACC YES
[2025-10-20 12:39] LABS: UACC Culture Trigger YES
[2025-10-20 13:18] LABS: Total Protein Urine Random < 7 mg/dL (<12)
[2025-10-20 13:19] LABS: Alanine Aminotransferase 29 U/L (0-31); Albumin Level 4.3 g/dL (3.5-5.0); Alkaline Phosphatase 95 U/L (39-117); Anion Gap 11 (12-20); Aspartate Amino Transferase 29 U/L (5-31); Blood Urea Nitrogen 18 mg/dL (9-16); Calcium 9.3 mg/dL (8.4-10.2); Carbon Dioxide 28 mmol/L (22-29); Chloride 106 mmol/L (96-108); Cholesterol 225 mg/dL (<200); Estimated Glomerular Filt Rate > 60; HDL Cholesterol 67 mg/dL (>40); Iron 71 mcg/dL (30-160); Percent Iron Saturation 27 % (15-50); Potassium 3.9 mmol/L (3.3-5.1); Sodium 141 mmol/L (135-145); Total Iron Binding Capacity 261 mcg/dL (228-428); Total Protein 7.4 g/dL (6.5-8.0); Triglycerides 79 mg/dL (<150); Unsaturated Iron Binding 190 ug/dL
[2025-10-20 13:57] LABS: Thyroid Stimulating Hormone 1.38 uIU/mL (0.32-4.0)
[2025-10-20 14:21] LABS: Folate 9.8 ng/mL (> or = 4.0); Vitamin B12 749 pg/mL (200-900)
[2025-10-22 19:14] LABS: TS Negative Control Passed; TS Panel A 0; TS Panel B 0; TS Positive Control Passed; TSpotTB Negative (Negative)
== END 2025-10-20 10:12 | disposition home or self-care (01) ==
LOC: HO.MAMMO 10:11
PROVIDERS: Absent Provider Internal Medicine Hypertension Specialist; PCP Internal Medicine; Visit Provider Internal Medicine
DX: R31.29 Other microscopic hematuria (principal); D64.9 Anemia, unspecified; E55.9 Vitamin D deficiency, unspecified; E04.9 Nontoxic goiter, unspecified; Z11.1 Encounter for screening for respiratory tuberculosis; E53.8 Deficiency of other specified B group vitamins; E78.5 Hyperlipidemia, unspecified; N30.10 Interstitial cystitis (chronic) without hematuria; I10 Essential (primary) hypertension; Z12.31 Encounter for screening mammogram for malignant neoplasm of breast; R30.0 Dysuria
CPT/HCPCS: 36415; 77063; 77067; 80053; 80061; 81001; 81003; 82306; 82570; 82607; 82746; 83540; 84156; 84443; 85025; 86481; 87086; 87088; 87186; 99212

== ENCOUNTER 2025-10-20 10:52 | Outpatient (AMB) | payer OTHER, SELFPAY ==
--- NOTE | 2025-10-20 10:54 | A.OFFPC_ITS ---
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 Partition Making Machine Operator Name: [id number]/Aquiles Accompanied by: Self / Same As Patient Allergies phentermine Allergy (Intermediate, Verified 10/20/25 11:17) Palpitations Medication List - Last Reconciled 10/20/25 by BENJAMIN Coleman acetaminophen 1,000 mg (2 x 500 mg) PO Q8H PRN albuterol sulfate 2.5 mg (3 mL) inhalation RQ4H WHILE AWAKE albuterol sulfate 90 mcg/actuation 2 puffs inhalation Q6H PRN ascorbic acid (vitamin C) (Vitamin C) 500 mg PO BID calcium citrate 500 mg PO BID cholecalciferol (vitamin D3) 1,250 mcg PO QWEEK esomeprazole magnesium 40 mg PO DAILY folic acid 1 mg PO DAILY 90 days gabapentin 300 mg PO DAILY hyoscyamine sulfate 0.125 mg PO BID-QID PRN metoprolol succinate ER 25 mg PO DAILY 90 days nebulizers (AeroEclipse II Nebulizer) As directed ondansetron 4 mg PO Q8H PRN oxycodone 5 mg PO .n3y-p2h PRN pantoprazole 20 mg PO BID 2 weeks phenazopyridine (Azo Urinary Pain Relief) 199 mg (2 x 99.5 mg) PO TID PRN phenazopyridine (Azo Urinary Pain Relief) 199 mg (2 x 99.5 mg) PO TID PRN polyethylene glycol 3350 17 grams PO DAILY pravastatin 20 mg PO DAILY 90 days sucralfate (Carafate) 1 g PO QIDACHS Tobacco use date assessed: 10/20/25 Fall risk assessment: No Falls in past year Last assessed Fall Risk: 10/20/25 Dental Screening Dental Screen Date: 10/20/25 Did you have a dental visit in the last 12 months?: Yes Did you have a dental problem in the last 6 months where you did not have access to dental care?: No Was dental information given to patient?: Patient has dentist HPI HPI Comments History of Present Illness Details The patient is a 65 year old individual presenting with burning with urination. The patient reports a history of chronic urinary problems, and the burning sensation has worsened in the last few days. The patient has a known diagnosis of interstitial cystitis and receives care from a urologist. Chart review showed that the patient was prescribed medication for urinary pain, phenazopyridine (Azo), which was prescribed by Dr. Merlin Aburto last month. She has yet to pick this medication up, reports that she did not know that she had in the medication in the pharmacy. Urinalysis in office with small amount of hematuria, which is normal for the patient. We will send urine to the lab for culture if necessary. The patient is afebrile, denies urinary frequency or vaginal discharge. Health Maintenance - The patient was advised that certain f oods and drinks can irritate the bladder. - The patient has a follow-up appointmen t scheduled with Dr. Orozco on February 14. Social History - Diet: Reports drinking coffee in the orning. Results - Tests and Diagnostics: In-office visua l urinalysis appears fine. 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 Asthma Paget's disease Fibromyalgia Nontoxic multinodular goiter Osteoarthritis HTN (hypertension) Surgical History Hx of hernia repair History of esophagogastroduodenoscopy (EGD) H/O colonoscopy History of excision of mass (08/21/23) History of removal of laparoscopic gastric banding device History of cystoscopy History of lobectomy of thyroid Mass of right parotid gland H/O laparoscopic adjustable gastric banding Hx of lithotripsy History of dilation and curettage History of delivery Hx of tonsillectomy Hx of gastric bypass Family History Mother Diabetes HTN (hypertension) Father Pancreatic cancer Diabetes HTN (hypertension) Maternal Grandmother Myocardial infarction Cancer Brother Pancreatic cancer Sister Uterine cancer Social History Household Members: Family Housing: House Are you a primary nurse behavioral health care to a significant other at home: No Do you presently have visiting nurse or other home services: No Alcohol intake: never Patient Tobacco Use Status: Former Tobacco user Tobacco use type: Cigarette e-Cigarette/Vaping Use: Never Used Second Hand Smoke Exposure: No service: No Current occupational status: unemployed and disabled Sexual orientation: Straight/Heterosexual Gender identity: Female Cognitive needs: No Hearing needs: No Vision needs: Yes (glasses) Female Reproductive History Menstrual Age of Menarche: 10 Questionnaire Thrive Questionnaire Date Thrive assessed: 03/11/24 AUREA-7 AMB Questionnaire AUREA-7 Date AUREA - 7 assessed: 03/11/24 Source: Developed by Drs. Maxx Hayden, Raquel Cervantes, Jourdan Ruano and colleagues, with an educational milady from [employer]. Review of Systems Const Denies body aches, Denies chills, Denies fever(s), Denies headache(s) and Denies poor appetite Eyes Reports no additional complaints ENT Denies dysphagia, Denies dizziness, Denies headache(s) and Denies odynophagia Card Denies chest pain, Denies syncope, Denies edema, Denies irregular heart rhythm, Denies lightheadedness and Denies dyspnea Resp Denies cough and Denies dyspnea GI Denies abdominal pain, Denies constipation, Denies dysphagia, Denies diarrhea, Denies nausea, Denies odynophagia and Denies vomiting Reports no additional complaints, Denies urinary hesitancy, Denies urinary urgency, Denies vaginal discharge, Denies vaginal pruritus and Reports other (Burning with urination) Musc Reports no additional complaints and Denies abnormal gait Skin/Breast Reports system reviewed and no additional complaints, except as documented Neuro Denies abnormal gait, Denies dizziness, Denies syncope and Denies headache(s) Psych Reports no additional complaints Physical exam (Primary Care) Vital Signs: Last Vital Signs Pulse 51 10/20/25 10:57 Resp 18 10/20/25 10:57 BP 116/62 10/20/25 10:57 Pulse Ox 96 10/20/25 10:57 Oxygen Delivery Method Room Air 10/20/25 10:57 BMI result Body Mass Index 28.3 Tobacco/Smoking Status: Tobacco use Status Tobacco use date assessed 10/20/25 10/20/25 10:59 Patient Tobacco Use Status Former Tobacco user 10/20/25 10:56 Tobacco use type Cigarette 10/20/25 10:56 e-Cigarette/Vaping Use Never Used 10/20/25 10:56 Thrive Assessment: Date of Thrive Assessment Date Thrive assessed 03/11/24 10/20/25 10:56 Const General: cooperative, healthy appearing, comfortable and no acute distress Orientation/consciousness: patient oriented x3 HENMT Head: Yes normocephalic Ears: hearing grossly normal bilaterally General nose exam: Normal external nose present Eyes General: appearance normal, both eyes and all related structures Conjunctivae: conjunctivae normal Neck Neck: Yes full ROM and Yes no lymphadenopathy Resp Effort & Inspection: normal respiratory effort Auscultation: clear to auscultation bilaterally, no crackles, no rales, no rhonchi and no wheezes Cardio Rate: regular rate Rhythm: regular rhythm Skin General skin exam: no rashes or lesions noted Neuro General: patient oriented x3 Gait exam (Neuro): Normal gait present Extrem General: Yes normal to inspection, Yes full ROM and No edema Psych Affect: normal affect Attitude: cooperative Insight: Good insight present (Psych) Judgement: Good judgement present (Psych) Results AMB Urinalysis, Automated UA Leukoctes 3 Denilson/uL Last Edit by Anyi Romero MA on 10/20/25 11: 13 UA Nitrite Negative Last Edit by Anyi Romero MA on 10/20/25 11:1 3 UA Urobilinogen 0.2 mg/dL Last Edit by Anyi Romero MA on 10/20/25 1 1:13 UA Protein 0 mg/dL Last Edit by Anyi Romero MA on 10/20/25 11:13 UA pH 6.0 Last Edit by Anyi Romero MA on 10/20/25 11:13 UA Blood 1 Brady/uL Last Edit by Anyi Romero MA on 10/20/25 11:13 UA Specific [place] 0 Last Edit by Anyi Romero MA on 10/20/25 11 :13 UA Ketone Negative Last Edit by Ayni Romero MA on 10/20/25 11:13 UA Bilirubin 0 mg/dL Last Edit by Anyi Romero MA on 10/20/25 11:1 3 UA Glucose 0 mg/dL Last Edit by Anyi Romero MA on 10/20/25 11:13 Results Reviewed Results Reviewed: Laboratory Last Values Urine pH (Auto) 6.0 10/20/25 11:04 Specific [place] (Auto) 0 10/20/25 11:04 Urine Protein (Auto) 0 mg/dL 10/20/25 11:04 Glucose (UA)(Auto) 0 mg/dL 10/20/25 11:04 Urine Ketones (Auto) Negative 10/20/25 11:04 Urine Blood (Auto) 1 Brady/uL 10/20/25 11:04 Urine Nitrite (Auto) Negative 10/20/25 11:04 Urine Bilirubin (Auto) 0 mg/dL 10/20/25 11:04 Urine Urobilinogen (Auto) 0.2 mg/dL 10/20/25 11:04 Leukocyte Esterase (Auto) 3 Denilson/uL 10/20/25 11:04 Coding Level of Care Code Est Pt Level 3 (67584) Diagnoses Chronic interstitial cystitis N30.10 Time Spent (min) 27 Assessment & Plan Assessment & Plan (1) Chronic interstitial cystitis: Code(s): N30.10 - Interstitial cystitis (chronic) without hematuria Category: Medical Plan Plan Patient was informed and verbally consented to the use of an ambient scribe for clinic note documentation during this visit. 1. Interstitial Cystitis With Dysuria The patient's worsening dysuria is consistent with a flare of chronic interstitial cystitis. Although the urine does not appear abnormal visually, a sample will be sent for laboratory analysis and culture to rule out a urinary tract infection. The patient was informed that phenazopyridine was prescribed last month and has refills available at [facility]. The patient was instructed to take two tablets up to three times per day as needed for pain relief and to call if there are issues obtaining the medication. The patient was educated that interstitial cystitis is a chronic condition and advised that certain foods and drinks can cause irritation. If the urine culture is positive, the patient will be contacted. The patient will follow up with Dr. Orozco on February 14. Discussion Notes I discussed with the patient that the recent increase in burning with urination is likely a flare-up of the known chronic condition, interstitial cystitis. I explained that while a visual check of the urine appears normal, I will send a sample to the lab for a culture to definitively rule out an infection as a cause for the symptoms. We reviewed the patient's medications and discovered a prescription for phenazopyridine, for pain relief, was sent to [facility] last month and has refills available. I advised the patient to picking machine operator this medication and provided instructions on its use for pain. I also reinforced that certain foods and drinks can irritate the bladder and worsen symptoms. I instructed the patient to maintain the scheduled follow-up appointment with Dr. Orozco. Patient Instructions - We are sending a sample of your urine to the lab to check for an infection. We will call you if the results show an infection. - Please go to [facility] to picking machine operator your prescription for urinary pain relief, phenazopyridine. There should be refills available for you. - You can take two tablets of this medication up to three times a day as needed for your pain. - This medication should not cause dizziness. - Be aware that your painful bladder condition is long-term and certain things, like coffee, may make it worse. - Keep your appointment with Dr. Orozco on February 14. - If you have any trouble getting your medication from the pharmacy, please call our office. Orders: Orders AMB Urinalysis Automated Today Z13.9 - Encounter for screening, unspecified UA CC w/rflx Micro + Cult Today R30.0 - Dysuria, R31.9 - Hematuria, unspecified
[2025-10-20 10:57] VITALS: BP 116/62; PULSE 51; RESP 18; O2SAT 96; BMI 28.3
== END 2025-10-20 12:35 | disposition home or self-care (01) ==
PROVIDERS: PCP Internal Medicine
DX: Z13.9 Encounter for screening, unspecified (principal); N30.10 Interstitial cystitis (chronic) without hematuria

== ENCOUNTER 2025-11-09 15:05 | Outpatient (REF) | payer OTHER, SELFPAY ==
--- NOTE | ~2025-11-09 | US_ITS ---
EXAMINATION: US THYROID HISTORY: E04.9 - Nontoxic goiter, unspecified TECHNIQUE: Real-time grayscale ultrasound imaging was performed and images were reviewed. COMPARISON: Comparison is made with the prior examination dated 03/28/2023. FINDINGS: SIZE: The right thyroid lobe measures 3.8 x 1.2 x 1.8 cm. The left thyroid lobe is surgically absent. The isthmus measures 3 mm. FLOW: Flow to the gland is normal. ECHOGENICITY: The echotexture of the gland is homogeneous. NODULES: A single nodule is identified as described below: Nodule #: 1 Location: Right upper pole measuring 4 x 3 x 4 mm. Shape: Wider than tall (0 points) Margins: Smooth (0 points) Echotexture: Hypoechoic (2 points) Composition: Solid (2 points) Calcifications: None (0 points) Total points: 4 TIRADS: TR4: Moderately suspicious. US/US thyroid IMPRESSION: Status post left thyroidectomy. Single subcentimeter nodule in the right thyroid lobe as described above. ACR TI-RADS Guidelines TR1 (0 points): Benign. No follow-up or biopsy required TR2 (2 points): Not Suspicious. No biopsy or follow up indicated TR3 (3 points): Mildly Suspicious. FNA if >= 2.5 cm, Follow if >= 1.5 cm TR4 (4-6 points): Moderately Suspicious. FNA if >= 1.5 cm, Follow if >= 1.0 cm TR5 (>=7 points): Highly Suspicious. FNA if >= 1.0 cm, Follow if >= 0.5 cm Electronically signed by: Maxx Seymour MD 11/09/2025 03:49 PM [facility]
--- NOTE | ~2025-11-09 | US_ITS ---
EXAMINATION: US KIDNEY BILATERAL HISTORY: R31.29 - Other microscopic hematuria TECHNIQUE: Real-time grayscale ultrasound imaging of the kidneys was performed and images were reviewed. COMPARISON: Correlation is made with an abdominal ultrasound dated 01/03/2024. FINDINGS: Right kidney: The right kidney measures 11.1 x 3.9 x 3.7 cm. Renal parenchymal echotexture and thickness are normal. There are no masses. There is no hydronephrosis or renal calculi. Left Kidney: The left kidney measures 10.9 x 5.8 x 5.6 cm. Renal parenchymal echotexture and thickness are normal. There are no masses. There is no hydronephrosis or renal calculi. US/US renal BI IMPRESSION: Unremarkable renal ultrasound. Electronically signed by: Maxx Seymour MD 11/09/2025 03:46 PM EST
--- OUTSIDE RECORDS SUMMARY | 2025-11-09 16:24 | XMS_ITS | Clinical Summary ---
Author Organization [facility] Address [address] [place] [address] Phone Care Team Providers Care Account Manager Name Role Phone Mary Jo Ascencio MD [...] file Medical Devices Not on file Insurance [facility] ACO [address] [place] [address] ACO Member Subscriber Plan / Payer (Ef fective 2019-Present) Name:Maura Travis Relation to Subscriber:Self Name:Maura Travis Payer ID:[id number] Group ID:[id number] Type:Medicaid Address: [address] ACO [facility] ACO Member Subscriber Plan / Payer (Ef fective 2019-Present) Name:Maura Travis Relation to Subscriber:Self Name:Muara Travis Payer ID:[id number] Group ID:[id number] Type:Medicaid Address: [address] ACO Member Subscriber Plan / Payer (Ef fective 2019-Present) Name:Maura Travis Relation to Subscriber:Self Name:Maura Travis Payer ID:[id number] Group ID:[id number] Type:Medicaid Address: [address] [place] [address] ACO Member Subscriber Plan / Payer (Ef fective 2019-Present) Name:Maura Travis Relation to Subscriber:Self Name:Maura Travis Payer ID:[id number] Group ID:[id number] Type:Medicaid Address: [address] [place] [address] ACO Member Subscriber Plan / Payer (Ef fective 2019-Present) Name:Maura Travis Relation to Subscriber:Self Name:Maura Travis Payer ID:[id number] Group ID:[id number] Type:Medicaid Address: [address] ACO [facility] ACO Member Subscriber Plan / Payer (Ef fective 2019-Present) Name:Maura Travis Relation to Subscriber:Self Name:Maura Travis Payer ID:[id number] Group ID:[id number] Type:Medicaid Address: [address] [place] [address] ACO Member Subscriber Plan / Payer (Ef fective 2019-Present) Name:Maura Travis Relation to Subscriber:Self Name:Maura Travis Payer ID:[id number] Group ID:[id number] Type:Medicaid Address: [address] [place] [address] ACO Member Subscriber Plan / Payer (Ef fective 2019-Present) Name:Maura Travis Relation to Subscriber:Self Name:Maura Travis Payer ID:[id number] Group ID:[id number] Type:Medicaid Address: [address] ACO Care Teams Account Manager Relationship Specialty Start Date End Date Mary Jo Ascencio MD [address] [place] [address] PCP - General 06/04/19 Additional Source Comments The information contained in this document represents components of the legal health record. It is not the complete legal health record.[facility]
--- OUTSIDE RECORDS SUMMARY | 2025-11-09 16:24 | XMS_ITS | Patient Health Record ---
Author Organization [facility] Address [address] [place] [address] Care Team Providers Care Roll Grinder Name Role Phone KETURAH BARTH MD, RAMONA Primary Care Provider PANCHO Sánchez Unavailable Allergies No Known Allergies Reason For Referral No Information Medications Medication SIG (Take, Route, Frequency, Duration) Notes Start Date End Date Status Albuterol Sulfate (2.5 MG/3ML) 0.083% Nebulization Solution 3 mL by nebulizer every 6 hours; Duration: 30 day(s) Unknown Metoprolol Succinate ER 50 MG Tablet Extended Release 24 Hour 1 tab(s) orally once a day; Duration: 30 day(s) Unknown Iron 1 TAB PO QD NAME ONLY Conversion from JEDI MIND Review and pick correct strength-formulatio n from Campaign Monitor options. If intended option is not shown, discontinue and re-order from Quick Search. Unknown Ibuprofen 50 MG/1.25 ML SUSPENSION 1.25 ML ORALLY EVERY 6 HOURS NAME ONLY Conversion from Multum Review and pick correct strength-formulatio n from Campaign Monitor options. If intended option is not shown, discontinue and re-order from Quick Search. Unknown Vitamin B-12 250 MCG Tablet 1 tab(s) orally once a day; Duration: 30 day(s) Unknown Social History Social History Additional Details Category Social Info Options Details General asbestos exposure: no Past year's travels: None alcohol use: no drug use: no Hobbies/Exercise habits: walks, Coffee/Tea/Soda: yes Coffee, 3x Marital Status single experience no Living with grandaughters 18 yo & 7 y.o, live w/ her, daughter nearby smokers in household no Problems Problem Type SNOMED Code ICD Code Onset Dates Problem Status W/U Status Risk Notes Problem Osteoporosis (43411420) Osteoporosis (M81.0) Active confirmed Plan Of Treatment No Information Insurance Providers Payer Name Payer Address Payer Phone Subscriber Number Group Number Insured Name Patient Relationship to Insured Coverage Start Date Coverage End Date [facility] [employer] [address] [address] [place], [place] [id number] [phone] [id number] JEWELS MAGALLON Self - patient is the insured Medical (General) History Medical History History ICD Code Allergy Anemia Arthritis hyperlipidemia Fibromyalgia Headaches Heart disease High Blood pressure Inflammatory bowel disease kidney stones Migraines Osteoporosis - no fracture, intolerant alendronate, s/p zoledronic acid x 1, [facility] [place]2021 multinodular goiter, s/p FNA - [facility] Paget's disease Surgical History Surgery Date(Month/Year) cholecystectomy parotid gland mass excess skin removal lap dorota - Dr Loya gastric bypass
--- OUTSIDE RECORDS SUMMARY | 2025-11-09 16:24 | XMS_ITS | Data Portability ---
Author Organization [place] [facility], Allergy Address [address] [address] Assessment Encounter Date Assessment Date Assessment LastModified [...] recorded. Imaging MRI, neck, w/wo contrast - swazi speaker, hx of right parotidecto my for [...] ast No observ ation record ed. [email or web address] [address], [address], 10/09/2024 09:09:01 Result Notes None recorded. 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,[place] [address], [place], [address] , [facility] - [facility] 4 13:58:22 Problem Notes None recorded. [...] Updated DateTime 07/08/2024 152.4 cm 29.3 kg/m2 41027.86 g Marc Odonnell [place] - [facility] 07/08/2024 13:41:16 Social History None recorded. Functional Status None recorded. Mental Status None recorded. Family History Nothing Reported. Medical History No medical history recorded. Gynecological HistoryNo gynecological history recorded. Obstetrics History GPAL:G 0 P 0 0 0 0 Past Encounters Encounter ID Performer Location Encounter Start Date Encounter Closed Date Diagnosis/Indication Diagnosis SNOMED-CT Code Diagnosis ICD10 Code Diagnosis IMO Codes Diagnosis Note [id number] CHRIS WOO MD [facility] [address] [address] 07/08/2024 13:31:55 07/08/2024 14:01:53 History of malignant neoplasm of parotid gland 8607414161 74583 Z85.818 Health Concerns Section Related Observation LastModified by Organization Detai ls LastModified Time None Recorded Concern Status LastModified by Organization Details LastModified Time None Recorded Advance Directives Directive None Recorded Payers Insurance Date Sequence Insurance Name Policy Number Policy Madrigal Covered Member ID Madrigal Member ID Guarantor Name 08/03/2024 1 [facility] [employer] - [facility] ([facility] HMO) Maura Travis [id number] Maura Travis 07/15/2024 1 [facility] - DOS ON OR AFTER 2023 - MEDICARE ADVANTAGE [place] (MEDICARE REPLACEMENT/AD VANTAGE - O) Maura Travis [id number] Maura Travis 08/03/2024 1 [facility] - DOS ON OR AFTER 2023 - [facility] (MEDICARE REPLACEMENT/AD VANTAGE - HMO) Maura Travis [id number] Maura Travis Notes Date Note Type Note Provider Name and Address Organization Details Recorded Time 07/08/2024 text/html swazi - IPADhx of right deep lobe parotid [...] for a follicular nodule CHRIS WOO MD [address] [place] [address], [place], [address], [place] - [facility] 07/08/2024 14:01:47 OBGyn Episode No OBEpisode recorded.
--- OUTSIDE RECORDS SUMMARY | 2025-11-09 16:24 | XMS_ITS | Clinical Summary ---
Author Organization [facility] Address [address] [place] [address] Phone Care Team Providers Care Placing Judge Name Role Phone Mary Jo Conteh MD Primary Care Provider [phone] Allergies No known active allergies Medications albuterol [...] 1 (one) time each day. Active ascorbic lhgw-vsaqsnan-sx n 1,000 mg powder effervescent in packet [...] EDT - 09/01/2025 9:[address] [facility] [address] [place] [id number] Joseph Arango MD Peptic ulcer (Primary Dx); [...] Orientation Straight 10/14/2024 7: 16 PM EST Last Filed Vital Signs Vital Sign Reading [...] Office Visit Gastroenterology - [address] [facility] [address] [place] [id number] Taniya Galdamez NP [address] [facility] [address] [place] [address] Health Maintenance Due Date Last Done Comments Breast Cancer Screening 1960 Colorectal Cancer Screening: Colonoscopy 1960 Drug Screen 1960 Non-Opioid Controlled Substance Agreement 1958 RSV Immunization Adult Patients (1 - [...] this topic Medical Devices Implanted Type Area Manager Managing Device Identifier Shelf Expiration Date Model / Serial / Lot Mesh Ventralex St 1.7in Sm Marshall W/Strap - Sn/A - [id number] Implanted:Qty: 1 on 12/09/2024 by Griffin Loya MD at [facility] Surgical Mesh Sling Implants N/A: Umbilical CR BARD - DAVOL DIV [id number] / N/A / N/A Procedures Procedure Name [...] reflex microscopic and culture (09/01/2025 2:31 PM ED) Specific Atkins Urine 1.015 1.003 - 1.030 LAB URINALYSIS - AUTOMATED METHOD 09/01/2025 3:02 PM [facility] pH, Urine 6.0 5.0 - 8.0 pH LAB URINALYSIS - AUTOMATED METHOD 09/01/2025 3:02 PM [facility] Leukocytes, Urine Negative Negative LAB URINALYSIS - AUTOMATED METHOD 09/01/2025 3:02 PM [facility] Nitrite, Urine Negative Negative LAB URINALYSIS - AUTOMATED METHOD 09/01/2025 3:02 PM [facility] Protein, Urine Negative <=Trace mg/dL LAB URINALYSIS - AUTOMATED METHOD 09/01/2025 3:02 PM [facility] Glucose, Urine Negative Negative mg/dL LAB URINALYSIS - AUTOMATED METHOD 09/01/2025 3:02 PM [facility] Ketones, Urine Negative Negative mg/dL LAB URINALYSIS - AUTOMATED METHOD 09/01/2025 3:02 PM [facility] Urobilinogen, Urine 0.2 0.2 - 1.0 mg/dL LAB URINALYSIS - AUTOMATED METHOD 09/01/2025 3:02 PM [facility] Bilirubin, Urine Negative Negative LAB URINALYSIS - AUTOMATED METHOD 09/01/2025 3:02 PM [facility] Blood, Urine Trace(A) Negative LAB URINALYSIS - AUTOMATED METHOD 09/01/2025 3:02 PM [facility] RBC, Urine 5.2(H) 0 - 4 /HPF LAB URINALYSIS - AUTOMATED METHOD 09/01/2025 3:02 PM [facility] WBC, Urine 0.4 0 - 4 /HPF LAB URINALYSIS - AUTOMATED METHOD 09/01/2025 3:02 PM [facility] Squamous Epithelial, Urine 15 0 - 60 /LPF LAB URINALYSIS - AUTOMATED METHOD 09/01/2025 3:02 PM EDT [facility] Bacteria, Urine Negative Negative /HPF LAB URINALYSIS - AUTOMATED METHOD 09/01/2025 3:02 PM EDT [facility] Hyaline Casts, Urine 0.0 0 - 3 /LPF LAB URINALYSIS - AUTOMATED METHOD 09/01/2025 3:02 PM EDT [facility] Urine Urine specimen obtained by clean catch procedure / Unknown Non-blood Collection / Unknown 09/01/2025 2:31 PM EDT 09/01/2025 2:41 PM EDT us Joseph Arango MD LAB URINE ORDERABLES Final Resul t Performing Organization Address [facility]/ZIP Co de Phone Number [facility] [address] [place] [address], [place] [phone] * Rebolledo urine culture tube (09/01/2025 2:31 PM EDT) Extra Tube Hold for add-ons. 09/01/2025 4:01 PM EDT [facility] Comment:Auto resulted. Urine Urine specimen obtained by clean catch procedure / Unknown Non-blood Collection / Unknown 09/01/2025 2:31 PM EDT 09/01/2025 2:41 PM EDT us Joseph Arango MD LAB URINE ORDERABLES Final Resul t Performing Organization Address City/[facility]/ZIP Co de Phone Number [facility] [address] [place] [address], [place] [phone] * CBC auto differential (09/01/2025 2:23 PM EDT) WBC 6.8 4.8 - 10.8 K/mcL LAB HEMETOLOGY METHOD 09/01/2025 2:56 PM EDT [facility] RBC 3.90 3.80 - 4.80 M/mcL LAB HEMETOLOGY METHOD 09/01/2025 2:56 PM EDT [facility] Hemoglobin 11.7 11.5 - 16.0 g/dL LAB HEMETOLOGY METHOD 09/01/2025 2:56 PM EDT [facility] Hematocrit 36.1 35.0 - 47.0 % LAB HEMETOLOGY METHOD 09/01/2025 2:56 PM EDT [facility] MCV 93.0 79.0 - 98.0 FL LAB HEMETOLOGY METHOD 09/01/2025 2:56 PM EDT [facility] MCH 30.2 27.0 - 32.0 pcg LAB HEMETOLOGY METHOD 09/01/2025 2:56 PM EDT [facility] MCHC 32.4 32.0 - 37.0 g/dL LAB HEMETOLOGY METHOD 09/01/2025 2:56 PM EDT [facility] RDW 13.8 11.0 - 15.0 % LAB HEMETOLOGY METHOD 09/01/2025 2:56 PM EDT [facility] Platelets 309 130 - 400 K/mcL LAB HEMETOLOGY METHOD 09/01/2025 2:56 PM T [facility] MPV 10.1 7.0 - 11.0 FL LAB HEMETOLOGY METHOD 09/01/2025 2:56 PM EDT [facility] NRBC 0.0 <1.0 % LAB HEMETOLOGY METHOD 09/01/2025 2:56 PM EDT [facility] NRBC Absolute 0.00 <0.10 K/mcL LAB HEMETOLOGY METHOD 09/01/2025 2:56 PM EDT [facility] Neutrophils Relative 70.2 % LAB HEMETOLOGY METHOD 09/01/2025 2:56 PM EDT [facility] Lymphocytes Relative 21.0 % LAB HEMETOLOGY METHOD 09/01/2025 2:56 PM EDT [facility] Monocytes Relative 6.5 % LAB HEMETOLOGY METHOD 09/01/2025 2:56 PM EDT [facility] Eosinophils Relative 1.5 % LAB HEMETOLOGY METHOD 09/01/2025 2:56 PM EDT [facility] Basophils Relative 0.7 % LAB HEMETOLOGY METHOD 09/01/2025 2:56 PM EDT [facility] Immature Granulocytes Relative 0.1 % LAB HEMETOLOGY METHOD 09/01/2025 2:56 PM EDT [facility] Neutrophils Absolute 4.78 1.50 - 7.00 K/mcL LAB HEMETOLOGY METHOD 09/01/2025 2:56 PM EDT [facility] Lymphocytes Absolute 1.43 1.00 - 5.00 K/mcL LAB HEMETOLOGY METHOD 09/01/2025 2:56 PM EDT [facility] Monocytes Absolute 0.44 0.20 - 1.00 K/mcL LAB HEMETOLOGY METHOD 09/01/2025 2:56 PM EDT [facility] Eosinophils Absolute 0.10 0.00 - 0.50 K/mcL LAB HEMETOLOGY METHOD 09/01/2025 2:56 PM EDT [facility] Basophils Absolute 0.05 0.00 - 0.20 K/mcL LAB HEMETOLOGY METHOD 09/01/2025 2:56 PM EDT [facility] Immature Granulocytes Absolute 0.01 0.00 - 0.03 K/mcL LAB HEMETOLOGY METHOD 09/01/2025 2:56 PM T [facility] Blood Venous blood specimen / Unknown Venipuncture / Unknown 09/01/2025 2:23 PM EDT 09/01/2025 2:42 PM EDT us Joseph Arango MD LAB BLOOD ORDERABLES Final Resul t Performing Organization Address [facility]/ZIP Co de Phone Number [facility] [address] [place] [address], * Lipase (09/01/2025 2:23 PM EDT) Lipase 40 13 - 75 unit/L LAB CHEMISTRY METHOD 09/01/2025 3:28 PM EDT [facility] Blood Venous blood specimen / Unknown Venipuncture / Unknown 09/01/2025 2:23 PM EDT 09/01/2025 2:42 PM EDT Joseph Arango MD LAB BLOOD ORDERABLES Final Resul t Performing Organization Address [facility] Co de Phone Number [facility] [address] [place] [address], [place] [phone] * (ABNORMAL) Comprehensive metabolic panel (09/01/2025 2:23 PM EDT) Sodium 139 133 - 145 mmol/L LAB CHEMISTRY METHOD 09/01/2025 3:28 PM EDT [facility] Potassium 4.5 3.5 - 5.5 mmol/L LAB CHEMISTRY METHOD 09/01/2025 3:28 PM [facility] Chloride 107 96 - 110 mmol/L LAB CHEMISTRY METHOD 09/01/2025 3:28 PM EDT [facility] CO2 28 21 - 32 mmol/L LAB CHEMISTRY METHOD 09/01/2025 3:28 PM T [facility] Anion Gap 4 3 - 11 LAB CHEMISTRY METHOD 09/01/2025 3:28 PM [facility] Glucose 103(H) 70 - 100 mg/dL LAB CHEMISTRY METHOD 09/01/2025 3:28 PM [facility] BUN 21 5 - 25 mg/dL LAB CHEMISTRY METHOD 09/01/2025 3:28 PM T [facility] Creatinine 0.86 0.50 - 1.10 mg/dL LAB CHEMISTRY METHOD 09/01/2025 3:28 PM EDT [facility] eGFR 75 >=60 mL/min/1. 73m2 LAB CHEMISTRY METHOD 09/01/2025 3:28 PM T [facility] Comment:Calculation based on the Chronic Kidney Disease Epidemiology Collaboration (CKD-EPI) equation refit without adjustment for race. BUN/Creatinine Ratio 24.4 LAB CHEMISTRY METHOD 09/01/2025 3:28 PM EDT [facility] Calcium 9.8 8.5 - 10.5 mg/dL LAB CHEMISTRY METHOD 09/01/2025 3:28 PM T [facility] AST (SGOT) 22 10 - 42 unit/L LAB CHEMISTRY METHOD 09/01/2025 3:28 PM [facility] ALT (SGPT) 29 10 - 60 unit/L LAB CHEMISTRY METHOD 09/01/2025 3:28 PM [facility] Alkaline Phosphatase 89 42 - 121 unit/L LAB CHEMISTRY METHOD 09/01/2025 3:28 PM [facility] Total Protein 7.0 6.0 - 8.0 g/dL LAB CHEMISTRY METHOD 09/01/2025 3:28 PM [facility] Albumin 3.5 3.2 - 5.0 g/dL LAB CHEMISTRY METHOD 09/01/2025 3:28 PM [facility] Total Bilirubin 0.3 0.0 - 1.4 mg/dL LAB CHEMISTRY METHOD 09/01/2025 3:28 PM [facility] Blood Venous blood specimen / Unknown Venipuncture / Unknown 09/01/2025 2:23 PM EDT 09/01/2025 2:42 PM EDT us Joseph Arango MD LAB BLOOD ORDERABLES Final Resul t [facility] [address] [place] [address], from Last 3 Months Insurance [facility] Member Subscriber Plan / Payer (Ef fective 2023-Present) Name:Maura Travis Relation to Subscriber:Self Name:Maura Bansal Payer ID:[id number] Group ID:[id number] Type:Not on file Address: [place] [address] [address] [id number] Advance Directives Documents on File Type Date Recorded Patient Manager Personnel Selection Expl anation Health Care Decision (hx) 05/24/2015 AD PRAJAPATI DIRECTIVE Health Care Decision (hx) 05/24/2015 AD PRAJAPATI DIRECTIVE Health Care Decision (hx) 05/24/2015 AD PRAJAPATI DIRECTIVE Health Care Decision (hx) 05/24/2015 AD PRJAAPATI DIRECTIVE Health Care Decision (hx) 05/24/2015 AD [...] currently active code status orders. Care Teams Placing Judge Relationship Specialty Start Date End Date Mary Jo Conteh MD [address] [place] [address] , [address] [facility] D/B/A: [facility] CARLOS MANUEL Zeng PCP - General Internal Medicine 05/28/18
== END 2025-11-09 15:06 | disposition home or self-care (01) ==
LOC: HO.US 15:05
PROVIDERS: PCP Internal Medicine; Visit Provider Internal Medicine
DX: R31.29 Other microscopic hematuria (principal); E04.9 Nontoxic goiter, unspecified
CPT/HCPCS: 76536; 76775

== ENCOUNTER → 2025-11-09 15:07 | Outpatient (BNV) | payer OTHER, SELFPAY | PROVIDERS: PCP Internal Medicine; Visit Provider Radiology Diagnostic Radiology | DX: R31.29 Other microscopic hematuria (principal); E04.1 Nontoxic single thyroid nodule | CPT/HCPCS: 76536; 76775 ==

== ENCOUNTER 2025-11-16 10:31 | Outpatient (AMB) | payer OTHER, SELFPAY ==
--- NOTE | 2025-11-16 11:09 | AM.OFFVISNUR ---
Intake Visit Reasons: 1W/IC Allergies phentermine Allergy (Intermediate, Verified 11/12/25 11:25) Palpitations Office Procedures Bladder/Catheter Procedure Details: Patient presents to office for IC instillation #2. Patient reports mildin symptoms from IC instillations. States it only lasts a couple days. Patient to make future IC appointments at checkout?for 1 week. 14fr straight cath used to instill: 10mls bupivicaine 0.50% 6mls heparin 30,000 units 10 mls lidocaine 2% lidocaine urojet 1ml solumedrol 40mg 20843-Vfhlvdohnc of Bladder 61499-Uilpka Bladder Catheter Procedure code (CPT) selection complete Office Meds lidocaine HCl 2 % mucosal jelly in applicator Performing Provider: Saige Henning MD Performing Location: [facility] [place] [facility] Administered by: Jenni Cobb RN on 11/16/25 11:11 Dose Route Admin Location Dispensed Lot Number Expiration Date [facility] Work From Home 10 mL intravesical 10 mL lidocaine (PF) 20 mg/mL (2 %) injection solution Performing Provider: Saige Henning MD Performing Location: [facility] [place] [facility] Administered by: Jenni Cobb RN on 11/16/25 11:11 Dose Route Admin Location Dispensed Lot Number Expiration Date [facility] Work From Home 20 mg intravesical 20 mL Total Dispensed Waste 20 mL 0 % bupivacaine (PF) 0.5 % (5 mg/mL) injection solution Performing Provider: Saige Henning MD Performing Location: [facility] [place] [facility] Administered by: Jenni Cobb RN on 11/16/25 11:11 Dose Route Admin Location Dispensed Lot Number Expiration Date [facility] Work From Home 10 mL intravesical 10 mL Total Dispensed Waste 10 mL 0 % methylprednisolone sod suc(PF) 40 mg/mL solution for injection Performing Provider: Saige Henning MD Performing Location: [facility] [place] [facility] Administered by: Jenni Cobb RN on 11/16/25 11:11 Dose Route Admin Location Dispensed Lot Number Expiration Date [facility] Work From Home 40 mg intravesical 1 ea Total Dispensed Waste 1 ea 0 % heparin (porcine) 5,000 unit/mL injection solution Performing Provider: Saige Henning MD Performing Location: [facility] [place] Administered by: Jenni Cobb RN on 11/16/25 11:11 Dose Route Admin Location Dispensed Lot Number Expiration Date [facility] Work From Home 30,000 unit intravesical 6 mL Total Dispensed Waste 6 mL 0 % Results AMB Urinalysis, Automated UA Leukoctes 0 Denilson/uL Last Edit by Jenni Cobb RN on 11/16/25 11:10 UA Nitrite Negative Last Edit by Jenni Cobb RN on 11/16/25 11:10 UA Urobilinogen 2 mg/dL Last Edit by Jenni Cobb RN on 11/16/25 11:10 UA Protein 100 mg/dL Last Edit by Jenni Cobb RN on 11/16/25 11:10 UA pH 6.0 Last Edit by Jenni Cobb RN on 11/16/25 11:10 UA Blood 80 Brady/uL Last Edit by Jenni Cobb RN on 11/16/25 11:10 UA Specific Ardara 1.0 Last Edit by Jenni Cobb RN on 11/16/25 11:10 UA Ketone Positive Last Edit by Jenni Cobb RN on 11/16/25 11:10 UA Bilirubin 2 mg/dL Last Edit by Jenni Cobb RN on 11/16/25 11:10 UA Glucose 0 mg/dL Last Edit by Jenni Cobb RN on 11/16/25 11:10 Assessment & Plan Assessment & Plan Orders: Orders AMB Urinalysis Automated Today Z13.9 - Encounter for screening, unspecified AMB Bladder/Catheter Procedure Today R30.0 - Dysuria, R31.29 - Other microscopic hematuria Coding CPT Codes Bladder/Catheter Procedure - CPT: 99410-Yaebntavkm of Bladder ([id number]) Bladder/Catheter Procedure - CPT: 45873-Fpvkag Bladder Catheter ([id number])
--- OUTSIDE RECORDS SUMMARY | 2025-11-16 14:06 | XMS_ITS | Clinical Summary ---
Author Organization [facility] Address [address] [place] [address] Phone Care Team Providers Care Rejector Name Role Phone Mary Jo Ascencio MD [...] file Insurance [facility] [employer] [address] [address] [place] [address] ACO Member Subscriber Plan / Payer (Ef fective 2019-Present) Name:Maura Travis Relation to Subscriber:Self Name:Maura Travis Payer ID:[id number] Group ID:[id number] Type:Medicaid Address: [address] [employer] [facility] [employer] Member Subscriber Plan / Payer (Ef fective 2019-Present) Name:Maura Travis Relation to Subscriber:Self Name:Maura Travis Payer ID:[id number] Group ID:[id number] Type:Medicaid Address: [address] ACO Member Subscriber Plan / Payer (Ef fective 2019-Present) Name:Maura Travis Relation to Subscriber:Self Name:Maura Travis Payer ID:[id number] Group ID:[id number] Type:Medicaid Address: [address] [place] [address] [place] [address] ACO Member Subscriber Plan / Payer (Ef fective 2019-Present) Name:Maura Travis Relation to Subscriber:Self Name:Maura Travis Payer ID:[id number] Group ID:[id number] Type:Medicaid Address: [address] [place] [address] [place] [address] ACO Member Subscriber Plan / Payer (Ef fective 2019-Present) Name:Maura Travis Relation to Subscriber:Self Name:Maura Travis Payer ID:[id number] Group ID:[id number] Type:Medicaid Address: [address] [employer] [facility] [employer] Member Subscriber Plan / Payer (Ef fective 2019-Present) Name:Maura Travis Relation to Subscriber:Self Name:Maura Travis Payer ID:[id number] Group ID:[id number] Type:Medicaid Address: [address] [place] [address] [place] [address] ACO Member Subscriber Plan / Payer (Ef fective 2019-Present) Name:Maura Travis Relation to Subscriber:Self Name:Maura Travis Payer ID:[id number] Group ID:[id number] Type:Medicaid Address: [address] [place] [address] [place] [address] ACO Member Subscriber Plan / Payer (Ef fective 2019-Present) Name:Maura Travis Relation to Subscriber:Self Name:Maura Travis Payer ID:[id number] Group ID:[id number] Type:Medicaid Address: [address] A[employer] Care Teams Rejector Relationship Specialty Start Date End Date Mary Jo Ascencio MD [address] [place] [address] PCP - General 06/04/19 Additional Source Comments The information contained in this document represents components of the legal health record. It is not the complete legal health record.[facility]
--- OUTSIDE RECORDS SUMMARY | 2025-11-16 14:06 | XMS_ITS | Clinical Summary ---
Author Organization 175 [facility] Address [address] [place] [address] Phone Care Team Providers Care Field Applications Specialist Name Role Phone Mary Jo Conteh MD Primary Care Provider [phone] Allergies No known active allergies Medications albuterol [...] 1 (one) time each day. Active ascorbic [id number] n 1,000 mg powder effervescent in packet [...] - 09/01/2025 9:12 PM EDT Emergency [facility] Emergency [address] [place] [phone] Joseph Arango MD Peptic ulcer (Primary Dx); [...] Office Visit Gastroenterology - [address] [facility] [address] [place] [phone] Taniya Galdamez NP [address] [facility] [address] [place] [address] Health Maintenance Due Date Last Done Comments [...] this topic Medical Devices Implanted Type Area Metal Neutralizer Device Identifier Shelf Expiration Date Model / Serial / Lot Mesh Ventralex St 1.7in Sm [employer] [place] W/Strap - Sn/A - [id number] Implanted:Qty: 1 on 12/09/2024 by Griffin Loya MD at [facility] Surgical Mesh Sling Implants N/A: Umbilical CR BARD - DAVOL DIV [id number] / N/A / N/A Procedures Procedure Name [...] and culture (09/01/2025 2:31 PM ED) Specific [place] Urine 1.015 1.003 - 1.030 LAB URINALYSIS - AUTOMATED METHOD 09/01/2025 3:02 PM [facility] pH, Urine 6.0 5.0 - 8.0 pH LAB URINALYSIS - AUTOMATED METHOD 09/01/2025 3:02 PM [facility] Leukocytes, Urine Negative Negative LAB URINALYSIS - AUTOMATED METHOD 09/01/2025 3:02 PM [facility] Nitrite, Urine Negative Negative LAB URINALYSIS - AUTOMATED METHOD 09/01/2025 3:02 PM [facility] Protein, Urine Negative <=Trace mg/dL LAB URINALYSIS - AUTOMATED METHOD 09/01/2025 3:02 PM [facility] Glucose, Urine Negative Negative mg/dL LAB URINALYSIS - AUTOMATED METHOD 09/01/2025 3:02 PM [facility] Ketones, Urine Negative Negative mg/dL LAB URINALYSIS - AUTOMATED METHOD 09/01/2025 3:02 PM [facility] Urobilinogen, Urine 0.2 0.2 - 1.0 mg/dL LAB URINALYSIS - AUTOMATED METHOD 09/01/2025 3:02 PM [facility] Bilirubin, Urine Negative Negative LAB URINALYSIS - AUTOMATED METHOD 09/01/2025 3:02 PM [facility] Blood, Urine Trace(A) Negative LAB URINALYSIS - AUTOMATED METHOD 09/01/2025 3:02 PM [facility] RBC, Urine 5.2(H) 0 - 4 /HPF LAB URINALYSIS - AUTOMATED METHOD 09/01/2025 3:02 PM [facility] WBC, Urine 0.4 0 - 4 /HPF LAB URINALYSIS - AUTOMATED METHOD 09/01/2025 3:02 PM [facility] Squamous Epithelial, Urine 15 0 - 60 /LPF LAB URINALYSIS - AUTOMATED METHOD 09/01/2025 3:02 PM EDT [facility] Bacteria, Urine Negative Negative /HPF LAB URINALYSIS - AUTOMATED METHOD 09/01/2025 3:02 PM EDT [facility] Hyaline Casts, Urine 0.0 0 - 3 /LPF LAB URINALYSIS - AUTOMATED METHOD 09/01/2025 3:02 PM EDT [facility] Urine Urine specimen obtained by clean catch procedure / Unknown Non-blood Collection / Unknown 09/01/2025 2:31 PM EDT 09/01/2025 2:41 PM EDT us Joseph Arango MD LAB URINE ORDERABLES Final Resul t Performing Organization Address [facility]/ZIP Co de Phone Number [facility] [address] [place] [address], [place] [phone] * Rebolledo urine culture tube (09/01/2025 2:31 PM EDT) Extra Tube Hold for add-ons. 09/01/2025 4:01 PM EDT [facility] Comment:Auto resulted. Urine Urine specimen obtained by clean catch procedure / Unknown Non-blood Collection / Unknown 09/01/2025 2:31 PM EDT 09/01/2025 2:41 PM EDT us Joseph Arango MD LAB URINE ORDERABLES Final Resul t Performing Organization Address City/[facility]/ZIP Co de Phone Number [facility] [address] [place] [address], [place] [phone] * CBC auto differential (09/01/2025 2:23 PM EDT) WBC 6.8 4.8 - 10.8 K/mcL LAB HEMETOLOGY METHOD 09/01/2025 2:56 PM EDT [facility] RBC 3.90 3.80 - 4.80 M/mcL LAB HEMETOLOGY METHOD 09/01/2025 2:56 PM EDT [facility] Hemoglobin 11.7 11.5 - 16.0 g/dL LAB HEMETOLOGY METHOD 09/01/2025 2:56 PM EDT [facility] Hematocrit 36.1 35.0 - 47.0 % LAB HEMETOLOGY METHOD 09/01/2025 2:56 PM EDT [facility] MCV 93.0 79.0 - 98.0 FL LAB HEMETOLOGY METHOD 09/01/2025 2:56 PM EDT [facility] MCH 30.2 27.0 - 32.0 pcg LAB HEMETOLOGY METHOD 09/01/2025 2:56 PM EDT [facility] MCHC 32.4 32.0 - 37.0 g/dL LAB HEMETOLOGY METHOD 09/01/2025 2:56 PM EDT [facility] RDW 13.8 11.0 - 15.0 % LAB HEMETOLOGY METHOD 09/01/2025 2:56 PM EDT [facility] Platelets 309 130 - 400 K/mcL LAB HEMETOLOGY METHOD 09/01/2025 2:56 PM T [facility] MPV 10.1 7.0 - 11.0 FL LAB HEMETOLOGY METHOD 09/01/2025 2:56 PM EDT [facility] NRBC 0.0 <1.0 % LAB HEMETOLOGY METHOD 09/01/2025 2:56 PM EDT [facility] NRBC Absolute 0.00 <0.10 K/mcL LAB HEMETOLOGY METHOD 09/01/2025 2:56 PM EDT [facility] Neutrophils Relative 70.2 % LAB HEMETOLOGY METHOD 09/01/2025 2:56 PM EDT [facility] Lymphocytes Relative 21.0 % LAB HEMETOLOGY METHOD 09/01/2025 2:56 PM EDT [facility] Monocytes Relative 6.5 % LAB HEMETOLOGY METHOD 09/01/2025 2:56 PM EDT [facility] Eosinophils Relative 1.5 % LAB HEMETOLOGY METHOD 09/01/2025 2:56 PM EDT [facility] Basophils Relative 0.7 % LAB HEMETOLOGY METHOD 09/01/2025 2:56 PM EDT [facility] Immature Granulocytes Relative 0.1 % LAB HEMETOLOGY METHOD 09/01/2025 2:56 PM EDT [facility] Neutrophils Absolute 4.78 1.50 - 7.00 K/mcL LAB HEMETOLOGY METHOD 09/01/2025 2:56 PM EDT [facility] Lymphocytes Absolute 1.43 1.00 - 5.00 K/mcL LAB HEMETOLOGY METHOD 09/01/2025 2:56 PM EDT [facility] Monocytes Absolute 0.44 0.20 - 1.00 K/mcL LAB HEMETOLOGY METHOD 09/01/2025 2:56 PM EDT [facility] Eosinophils Absolute 0.10 0.00 - 0.50 K/mcL LAB HEMETOLOGY METHOD 09/01/2025 2:56 PM EDT [facility] Basophils Absolute 0.05 0.00 - 0.20 K/mcL LAB HEMETOLOGY METHOD 09/01/2025 2:56 PM EDT [facility] Immature Granulocytes Absolute 0.01 0.00 - 0.03 K/mcL LAB HEMETOLOGY METHOD 09/01/2025 2:56 PM T [facility] Blood Venous blood specimen / Unknown Venipuncture / Unknown 09/01/2025 2:23 PM EDT 09/01/2025 2:42 PM EDT us Joseph Arango MD LAB BLOOD ORDERABLES Final Resul t Performing Organization Address [facility]/ZIP Co de Phone Number [facility] [address] [place] [address], * Lipase (09/01/2025 2:23 PM EDT) Lipase 40 13 - 75 unit/L LAB CHEMISTRY METHOD 09/01/2025 3:28 PM EDT [facility] Blood Venous blood specimen / Unknown Venipuncture / Unknown 09/01/2025 2:23 PM EDT 09/01/2025 2:42 PM EDT Joseph Arango MD LAB BLOOD ORDERABLES Final Resul t Performing Organization Address [facility] Co de Phone Number [facility] [address] [place] [address], [place] [phone] * (ABNORMAL) Comprehensive metabolic panel (09/01/2025 2:23 PM EDT) Sodium 139 133 - 145 mmol/L LAB CHEMISTRY METHOD 09/01/2025 3:28 PM EDT [facility] Potassium 4.5 3.5 - 5.5 mmol/L LAB CHEMISTRY METHOD 09/01/2025 3:28 PM [facility] Chloride 107 96 - 110 mmol/L LAB CHEMISTRY METHOD 09/01/2025 3:28 PM EDT [facility] CO2 28 21 - 32 mmol/L LAB CHEMISTRY METHOD 09/01/2025 3:28 PM T [facility] Anion Gap 4 3 - 11 LAB CHEMISTRY METHOD 09/01/2025 3:28 PM [facility] Glucose 103(H) 70 - 100 mg/dL LAB CHEMISTRY METHOD 09/01/2025 3:28 PM [facility] BUN 21 5 - 25 mg/dL LAB CHEMISTRY METHOD 09/01/2025 3:28 PM T [facility] Creatinine 0.86 0.50 - 1.10 mg/dL LAB CHEMISTRY METHOD 09/01/2025 3:28 PM EDT [facility] eGFR 75 >=60 mL/min/1. 73m2 LAB CHEMISTRY METHOD 09/01/2025 3:28 PM T [facility] Comment:Calculation based on the Chronic Kidney Disease Epidemiology Collaboration (CKD-EPI) equation refit without adjustment for race. BUN/Creatinine Ratio 24.4 LAB CHEMISTRY METHOD 09/01/2025 3:28 PM EDT [facility] Calcium 9.8 8.5 - 10.5 mg/dL LAB CHEMISTRY METHOD 09/01/2025 3:28 PM T [facility] AST (SGOT) 22 10 - 42 unit/L LAB CHEMISTRY METHOD 09/01/2025 3:28 PM [facility] ALT (SGPT) 29 10 - 60 unit/L LAB CHEMISTRY METHOD 09/01/2025 3:28 PM [facility] Alkaline Phosphatase 89 42 - 121 unit/L LAB CHEMISTRY METHOD 09/01/2025 3:28 PM [facility] Total Protein 7.0 6.0 - 8.0 g/dL LAB CHEMISTRY METHOD 09/01/2025 3:28 PM [facility] Albumin 3.5 3.2 - 5.0 g/dL LAB CHEMISTRY METHOD 09/01/2025 3:28 PM [facility] Total Bilirubin 0.3 0.0 - 1.4 mg/dL LAB CHEMISTRY METHOD 09/01/2025 3:28 PM [facility] Blood Venous blood specimen / Unknown Venipuncture / Unknown 09/01/2025 2:23 PM EDT 09/01/2025 2:42 PM EDT us Joseph Arango MD LAB BLOOD ORDERABLES Final Resul t [facility] [address] [place] [address], from Last 3 Months Insurance [facility] MEDICARE Member Subscriber Plan / Payer (Ef fective 2023-Present) Name:Maura Travis Relation to Subscriber:Self Name:Maura Bansal Payer ID:[id number] Group ID:[id number] Type:Not on file Address: [place] [address] [address] [phone] Advance Directives Documents on File Type Date Recorded Patient Public Services Assistant Expl anation Health Care Decision (hx) 05/24/2015 [...] currently active code status orders. Care Teams Field Applications Specialist Relationship Specialty Start Date End Date Mary Jo Conteh MD [address] [place] [address] , [address] [facility] D/B/A: Karri Gomezatipatricia In Internal Medicine CARLOS MANUEL Zeng PCP - General Internal Medicine 05/28/18
--- OUTSIDE RECORDS SUMMARY | 2025-11-16 14:06 | XMS_ITS | Patient Health Record ---
Author Organization [facility] Address [address] [place] [address] Care Team Providers Care District Service Manager Name Role Phone KETURAH BARTH MD, RAMONA [...] TAB PO QD NAME ONLY Conversion from getbetter! Review and pick correct strength-formulatio n from [employer] options. If intended option is not shown, discontinue and re-order from Quick Search. Unknown Ibuprofen 50 MG/1.25 ML SUSPENSION 1.25 ML ORALLY EVERY 6 HOURS NAME ONLY Conversion from [employer] Review and pick correct strength-formulatio n from [employer] options. If intended option is not shown, [...] Status W/U Status Risk Notes Problem Osteoporosis (35061147) Osteoporosis (M81.0) Active confirmed Plan Of Treatment No Information Insurance Providers Payer Name Payer Address Payer Phone Subscriber Number Group Number Insured Name Patient Relationship to Insured Coverage Start Date Coverage End Date [facility] [employer] [address] [address] [place], [place] [id number] [phone] [id number] JEWELS MAGALLON Self - patient is the insured Medical (General) History Medical History History ICD Code Allergy Anemia Arthritis hyperlipidemia Fibromyalgia Headaches Heart disease High Blood pressure Inflammatory bowel disease kidney stones Migraines Osteoporosis - no fracture, intolerant alendronate, s/p zoledronic acid x 1, [facility] 04/2021 multinodular goiter, s/p FNA - [facility] Paget's disease Surgical History Surgery Date(Month/Year) cholecystectomy parotid gland mass excess skin removal lap dorota - Dr Loya gastric bypass
== END 2025-11-16 11:53 | disposition home or self-care (01) ==
LOC: HO.HUSH 10:31
PROVIDERS: PCP Internal Medicine; Visit Provider Urology
DX: R31.29 Other microscopic hematuria (principal); R30.0 Dysuria; Z13.9 Encounter for screening, unspecified

== ENCOUNTER → 2025-11-16 10:31 | Outpatient (BNVA) | payer OTHER, SELFPAY | PROVIDERS: PCP Internal Medicine; Visit Provider Urology | DX: R30.0 Dysuria (principal); R31.29 Other microscopic hematuria | CPT/HCPCS: 51700; 51701; 81003; J0665; J1644; J2003 ==